=== PATIENT | female | born 1950 | race Caucasian/White ===

== ENCOUNTER → 2020-03-03 10:46 | Outpatient (BNVA) | payer MEDICARE, MEDICAID, SELFPAY | PROVIDERS: Family Provider Nurse Practitioner Family; PCP Nurse Practitioner Family; Visit Provider Nurse Practitioner Family | DX: E11.9 Type 2 diabetes mellitus without complications (principal); E55.9 Vitamin D deficiency, unspecified; L60.0 Ingrowing nail; E11.65 Type 2 diabetes mellitus with hyperglycemia; I10 Essential (primary) hypertension; M54.9 Dorsalgia, unspecified; G89.29 Other chronic pain; G62.9 Polyneuropathy, unspecified; E78.5 Hyperlipidemia, unspecified; K21.9 Gastro-esophageal reflux disease without esophagitis; J30.2 Other seasonal allergic rhinitis | CPT/HCPCS: 80053; 80061; 82044; 82306; 82607; 83036; 83735; 84450; 85025; 87070; 87077; 87186 ==

== ENCOUNTER → 2020-07-06 12:10 | Outpatient (BNVA) | payer MEDICARE, MEDICAID, SELFPAY | PROVIDERS: Family Provider Nurse Practitioner Family; PCP Nurse Practitioner Family; Visit Provider Nurse Practitioner Family | DX: M54.5 Low back pain (principal); G89.29 Other chronic pain; M17.0 Bilateral primary osteoarthritis of knee; E53.8 Deficiency of other specified B group vitamins; Z68.41 Body mass index [BMI] 40.0-44.9, adult; Z71.89 Other specified counseling | CPT/HCPCS: 82607; 82746; 83090; 83921 ==

== ENCOUNTER → 2020-09-01 11:41 | Outpatient (BNVA) | payer MEDICARE, MEDICAID, SELFPAY | PROVIDERS: Family Provider Nurse Practitioner Family; PCP Nurse Practitioner Family; Visit Provider Nurse Practitioner Family | DX: E11.65 Type 2 diabetes mellitus with hyperglycemia (principal); E55.9 Vitamin D deficiency, unspecified | CPT/HCPCS: 80053; 80061; 82306; 83036; 83721; 85025 ==

== ENCOUNTER → 2021-01-27 09:02 | Outpatient (BNVA) | payer MEDICARE, MEDICAID, SELFPAY | PROVIDERS: Family Provider Nurse Practitioner Family; PCP Nurse Practitioner Family; Visit Provider Nurse Practitioner Family | DX: E53.8 Deficiency of other specified B group vitamins (principal); E55.9 Vitamin D deficiency, unspecified; E11.65 Type 2 diabetes mellitus with hyperglycemia; M17.0 Bilateral primary osteoarthritis of knee; J30.2 Other seasonal allergic rhinitis; K21.9 Gastro-esophageal reflux disease without esophagitis; E78.5 Hyperlipidemia, unspecified; I10 Essential (primary) hypertension; M54.5 Low back pain; G89.29 Other chronic pain; K08.89 Other specified disorders of teeth and supporting structures; E11.42 Type 2 diabetes mellitus with diabetic polyneuropathy | CPT/HCPCS: 80053; 80061; 82043; 82306; 82607; 83036; 84443; 85025 ==

== ENCOUNTER → 2021-08-24 11:26 | Outpatient (BNVA) | payer MEDICARE, MEDICAID, SELFPAY | PROVIDERS: Family Provider Nurse Practitioner Family; PCP Nurse Practitioner Family; Visit Provider Nurse Practitioner Family | DX: I10 Essential (primary) hypertension (principal); E11.65 Type 2 diabetes mellitus with hyperglycemia; E55.9 Vitamin D deficiency, unspecified | CPT/HCPCS: 80053; 80061; 82306; 82607; 83036; 83735; 84443; 85025 ==

== ENCOUNTER → 2022-02-24 10:40 | Outpatient (BNVA) | payer MEDICARE, MEDICAID, SELFPAY | PROVIDERS: Family Provider Nurse Practitioner Family; PCP Nurse Practitioner Family; Visit Provider Nurse Practitioner Family | DX: E55.9 Vitamin D deficiency, unspecified (principal); E53.8 Deficiency of other specified B group vitamins; E11.9 Type 2 diabetes mellitus without complications; I10 Essential (primary) hypertension; M17.0 Bilateral primary osteoarthritis of knee; J30.2 Other seasonal allergic rhinitis; K21.9 Gastro-esophageal reflux disease without esophagitis; G89.29 Other chronic pain | CPT/HCPCS: 80053; 80061; 82043; 82306; 82607; 83036; 83735; 84443; 85025 ==

== ENCOUNTER 2022-06-30 20:56 | Inpatient (IN) | payer MEDICARE, MEDICAID, SELFPAY ==
[2022-06-30 21:21] VITALS: BP 157/97; PULSE 80; RESP 20; TEMP 37.9; O2SAT 93; BMI 36.3
--- NOTE | 2022-06-30 21:24 | ECG_ITS ---
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 Measurements Intervals [place] Rate: 80 P: 45 [place]: 195 QRS: -24 QRSD: 89 T: 35 QT: 344 QTc: 398 Interpretive Statements SINUS RHYTHM BORDERLINE LEFT AXIS DEVIATION [QRS AXIS < -20] MODERATE VOLTAGE CRITERIA FOR LVH, CONSIDER NORMAL VARIANT [MEETS CRITERIA IN ONE OF: R(aVL), S(V1), R(V5), R(V5/V6)+S(V1)] NONSPECIFIC T-WAVE ABNORMALITY No previous ECG available for comparison Electronically Signed On 06-30-2022 22:52:21 CDT by Candis Dotson M.D. [id number] f
--- NOTE | 2022-06-30 21:29 | CTR_ITS ---
PROCEDURE INFORMATION: Exam: CT Abdomen And Pelvis Without Contrast Exam date and time: 06/30/2022 9:50 PM Age: 72 years old Clinical indication: Abdominal pain; Additional info: Abd pain, RT flank x 2 days TECHNIQUE: Imaging protocol: Computed tomography of the abdomen and pelvis without contrast. Radiation optimization: All CT scans at this facility use at least one of these dose optimization techniques: automated exposure control; mA and/or kV adjustment per patient size (includes targeted exams where dose is matched to clinical indication); or iterative reconstruction. COMPARISON: MR lumbar spine wo con* [id number] 02/20/2017 1:10 PM RADIATION DOSE METRICS: Total DLP (mGy-cm): 1233.53 FINDINGS: Limitations: Study somewhat limited due to streak artifact created by the patient being scanned with the arms at the sides. Study is somewhat limited by patient respiratory motion. The absence of intravenous contrast lessens the sensitivity of this study for solid organ abnormalities. Diaphragm: There is chronic elevation the right hemidiaphragm. Liver: There is mild enlargement of the liver. Liver measures 21 cm in height Gallbladder and bile ducts: Multiple calcified gallstones are present. There is moderate hydrops of the gallbladder which measures 9 cm in length and 5 cm in diameter. There may be mild gallbladder wall thickening. Pancreas: The pancreas is normal. Spleen: The spleen demonstrates punctate calcifications, consistent with remote granulomatous organism exposure. The spleen is normal. Adrenal glands: The adrenal glands are normal. Kidneys and ureters: The kidneys are normal. There is no evidence of hydronephrosis. There is no evidence of renal or ureteral calcifications. Stomach and bowel: There is no evidence of colitis/diverticulitis. There is no evidence of intestinal obstruction. Appendix: Not identified Intraperitoneal space: There is no evidence of free intraperitoneal fluid. Vasculature: There is no evidence of an abdominal aortic aneurysm. Lymph nodes: There is some calcified hilar and mediastinal lymph nodes in keeping with old granulomatous disease. There is no evidence of lymphadenopathy. Urinary bladder: Unremarkable as visualized. Reproductive: Unremarkable as visualized. Bones/joints: The lumbar spine demonstrates marked degenerative changes at multiple levels. Soft tissues: Unremarkable. CT/CT abdomen pelvis wo con [id number] IMPRESSION: 1. Hepatomegaly 2. Cholelithiasis 3. Moderate hydrops of the gallbladder with possible gallbladder wall thickening. 4. No urinary tract calculi are identified. 5. Extensive degenerative changes in the lumbar spine.
--- NOTE | 2022-06-30 21:29 | XRR_ITS ---
PROCEDURE INFORMATION: Exam: XR Chest Exam date and time: 06/30/2022 9:54 PM Age: 72 years old Clinical indication: Fever TECHNIQUE: Imaging protocol: Radiologic exam of the chest. Views: 1 view. COMPARISON: CT abdomen pelvis con [id number] 06/30/2022 9:50 PM FINDINGS: Limitations: The study is made with less than full inspiration. Lungs: Visualized portions of the lungs are clear. There is no pulmonary venous congestion. Pleural spaces: Unremarkable. No pleural effusion. No pneumothorax. Heart/Mediastinum: Heart is within normal limits of size. Diaphragm: There is chronic elevation the right hemidiaphragm. Bones/joints: Unremarkable. XR/XR chest 1V portable [id number] IMPRESSION: No acute infiltrate.
--- NOTE | 2022-06-30 21:31 | CTR_ITS ---
PROCEDURE INFORMATION: Exam: CT Head Without Contrast Exam date and time: 06/30/2022 9:47 PM Age: 72 years old Clinical indication: Altered mental status/memory loss; Additional info: AMS TECHNIQUE: Imaging protocol: Computed tomography of the head without contrast. Radiation optimization: All CT scans at this facility use at least one of these dose optimization techniques: automated exposure control; mA and/or kV adjustment per patient size (includes targeted exams where dose is matched to clinical indication); or iterative reconstruction. COMPARISON: No relevant prior studies available. RADIATION DOSE METRICS: Total DLP (mGy-cm): 1090.08 FINDINGS: Brain: Mild atrophy and mild white matter chronic microvascular changes are noted. No hemorrhage or evidence of acute infarction. Cerebral ventricles: No ventriculomegaly. Paranasal sinuses: Visualized sinuses are unremarkable. No fluid levels. Mastoid air cells: Visualized mastoid air cells are well aerated. Bones/joints: Unremarkable. No acute fracture. Soft tissues: Unremarkable. CT/CT head wo con* [id number] IMPRESSION: No acute intracranial abnormality.
--- NOTE | 2022-06-30 21:38 | ED_ITS ---
HPI - Weakness General: Chief complaint: Weakness Stated complaint: FEVER/WEAKNESS/CONFUSED Time Seen by Provider: 06/30/22 20:58 Source: patient and EMS Mode of arrival: EMS Limitations: no limitations History of Present Illness: 72-year-old female that states that she has been having a fever today. Family states she been complaining of abdominal pain and left flank pain yesterday daughter states that when she went to work this morning she is normal and she came home and she was confused and had a fever patient's confusion is since improved she is ANO x4 currently with daughter states she is quite confused at the house. She does have a fever here states that she has not felt well today and has had some weakness had some slight shortness of breath denies any vomiting or diarrhea. Associated symptoms: Reports fever(s) and nausea; Denies chest pain, dysuria, easy bruising or headache(s) Review of Systems Const: Reports: fever(s) Eyes: Denies: blurry vision or eye discomfort ENMT: Denies: throat pain or dental pain Card: Denies: chest pain Resp: Reports: dyspnea GI: Reports: abdominal pain and nausea : Denies: dysuria Musc: Denies: neck pain or back pain Skin/Breast: Denies: rash Neuro: Denies: headache(s) Psych: Denies: depression Asa/Lymph: Denies: easy bruising All/Imm: Denies: urticaria PFSH ED PFSH: Medical History (Updated 07/01/22 @ 02:02 by Alma Delia Bartlett MD) Bunion of right foot Chronic back pain Chronic osteoarthritis Dyslipidemia Encounter for counseling for care management of patient with chronic conditions and complex health needs using nurse-based model Essential (primary) hypertension Gastro-esophageal reflux disease without esophagitis Neuropathy Obesity, unspecified Seasonal allergies Type 2 diabetes mellitus without complications Surgical History Hx of knee surgery (~10/2000) left Family History Mother Cancer colon Father Cancer pancreatic Family/Other CAD (coronary artery disease) Social History Smoking and tobacco status: never smoked Second hand smoke exposure: No Alcohol intake: never Lives independently: Yes Household members: significant other Marital status: Life Partner Current occupational status: retired History of recent travel: No Current gender identity: Female Physical Exam Const: COMMON NORMALS: patient oriented x3 HENMT: COMMON NORMALS: normocephalic and atraumatic HEAD & SCALP: normocephalic and atraumatic Eye: COMMON NORMALS: Equal, round and reactive pupils present and EOMs intact bilaterally PUPIL: Yes Equal, round and reactive pupils present Neck/C-Spine: COMMON NORMALS: full ROM and supple Chest: COMMONS NORMALS: normal inspection of the chest and normal palpation of entire chest wall Resp: COMMON NORMALS: normal respiratory effort, No retractions, No use of accessory muscles and clear to auscultation bilaterally AUSCULTATION: clear to auscultation bilaterally Cardio: COMMON NORMALS: regular rate, regular rhythm and No murmurs present (Cardio) RATE: regular rate RHYTHM: regular rhythm GI: COMMON NORMALS: Normal to inspection, nondistended, normoactive bowel sounds present, Soft to palpation, non-tender and no masses PALPATION: Yes Soft to palpation Extremity: COMMON NORMALS: normal to inspection and full ROM Neuro: COMMON NORMALS: patient oriented x3, moves all extremities and no focal motor deficits Psych: COMMON NORMALS: mental status grossly normal, Normal thought process present and cooperative THOUGHT PROCESS: Normal thought process present Skin: COMMON NORMALS: no rashes or lesions noted and no wounds GENERAL SKIN EXAM: no rashes or lesions noted Course Vital Signs: Vital signs: Vital Signs Temperature 100.3 F H 06/30/22 21:21 Pulse Rate 73 06/30/22 23:19 Respiratory Rate 36 H 06/30/22 23:19 Blood Pressure 125/60 06/30/22 23:19 Pulse Oximetry 95 06/30/22 23:19 Oxygen Delivery Me thod 06/30/22 23:19 Oxygen Flow Rate 3 06/30/22 23:19 MDM - Weakness Medical Decision Making Patient presents here with altered mental status likely from a urinary tract infection also causing fever. Patient's improved here did give IV antibiotics patient will be admitted I spoke to hospitalist. Lab Data : 06/30/22 21:39 06/30/22 21:39 Radiology Impressions Abdomen/Pelvis CT 06/30/22 21:29 IMPRESSION: 1. Hepatomegaly 2. Cholelithiasis 3. Moderate hydrops of the gallbladder with possible gallbladder wall thickening. 4. No urinary tract calculi are identified. 5. Extensive degenerative changes in the lumbar spine. Chest X-Ray 06/30/22 21:29 IMPRESSION: No acute infiltrate. Head CT 06/30/22 21:31 IMPRESSION: No acute intracranial abnormality. Laboratory Results WBC 10.5 10^3/uL (4.0-10.0) H 06/30/22 21:39 RBC 5.17 10^6/uL (4.1-5.3) 06/30/22 21:39 Hgb 15.9 g/dL (11.5-15.3) H 06/30/22 21:39 Hct 48.4 % (37.0-47.0) H 06/30/22 21:39 MCV 93.6 fl (81-99) 06/30/22 21:39 MCH 30.8 pg (28.0-34.0) 06/30/22 21:39 MCHC 32.9 g/dL (30.0-36.0) 06/30/22 21:39 RDW 13.4 % (12.1-15.1) 06/30/22 21:39 Plt Count 212 10^3/cmm (130-400) 06/30/22 21:39 MPV 11.2 fL (7.4-10.4) H 06/30/22 21:39 Neut % (Auto) 93.2 % 06/30/22 21:39 Lymph % (Auto) 3.0 % 06/30/22 21:39 Trigg % (Auto) 2.4 % 06/30/22 21:39 Eos % (Auto) 0.7 % 06/30/22 21:39 Baso % (Auto) 0.3 % 06/30/22 21:39 Neut # (Auto) 9.79 10^3/uL (1.8-7.7) H 06/30/22 21:39 Lymph # (Auto) 0.3 10^3/uL (0.8-4.8) L 06/30/22 21:39 Trigg # (Auto) 0.3 10^3/uL (0.2-0.9) 06/30/22 21:39 Eos # (Auto) 0.1 10^3/uL (0.0-0.8) 06/30/22 21:39 Baso # (Auto) 0.0 10^3/uL (0.0-0.1) 06/30/22 21:39 Nucleated RBC % (auto) 0 % 06/30/22 21:39 Nucleated RBCs # 0.0 /100WBC 06/30/22 21:39 PT 13.70 SECONDS (12.1-14.9) 06/30/22 21:39 INR 1.02 (0.8-1.2) 06/30/22 21:39 Sodium 139 mmol/L (136-145) 06/30/22 21:39 Potassium 3.7 mmol/L (3.5-5.1) 06/30/22 21:39 Chloride 105 mmol/L (98-107) 06/30/22 21:39 Carbon Dioxide 22 mmol/L (22-29) 06/30/22 21:39 Anion Gap 15.7 (5-19) 06/30/22 21:39 BUN 21 mg/dL (8-23) 06/30/22 21:39 Creatinine 0.9 mg/dL (0.5-0.9) 06/30/22 21:39 GFR Calculation Not Reportable 06/30/22 21:39 Glucose 110 mg/dL (65-115) 06/30/22 21:39 Calculated Osmolality 292 mOsm/kg (285-295) 06/30/22 21:39 Lactate 3.1 mmol/L (0.5-2.2) H 06/30/22 21:39 Calcium 8.5 mg/dL (8.5-10.5) 06/30/22 21:39 Total Bilirubin 2.0 mg/dL (0.15-1.2) H 06/30/22 21:39 AST 428 U/L (0-32) H 06/30/22 21:39 ALT 193 U/L (0-33) H 06/30/22 21:39 Alkaline Phosphatase 58 U/L (35-105) 06/30/22 21:39 Troponin T Baseline 19 ng/L (0-10) H 06/30/22 21:39 NT-Pro-B Natriuret Pep 1180 pg/mL (0-125) H 06/30/22 21:39 Total Protein 6.0 g/dL (6.6-8.7) L 06/30/22 21:39 Albumin 3.6 g/dL (3.5-5.2) 06/30/22 21:39 Globulin 2.4 g/dL (1.3-4.6) 06/30/22 21:39 Lipase 30 U/L (13-60) 06/30/22 21:39 Urine Color Yellow (Yellow) 06/30/22 23:06 Urine Appearance Clear (CLEAR) 06/30/22 23:06 Urine pH 7 (5-7) 06/30/22 23:06 Ur Specific [place] 1.010 (1.005-1.030) 06/30/22 23:06 Urine Protein Neg (Negative) 06/30/22 23:06 Urine Glucose (UA) 1+ (Normal) H 06/30/22 23:06 Urine Ketones Negative (Negative) 06/30/22 23:06 Urine Blood Neg (Negative) 06/30/22 23:06 Urine Nitrate Positive (Negative) H 06/30/22 23:06 Urine Bilirubin 1+ (Negative) H 06/30/22 23:06 Urine Urobilinogen 1 mg/dL (Negative) H 06/30/22 23:06 Ur Leukocyte Esterase Negative (Negative) 06/30/22 23:06 Urine RBC 0-4 /hpf (0-2) H 06/30/22 23:06 Urine WBC 0-4 /hpf (0-5) H 06/30/22 23:06 Ur Squamous Epith Cells 0-4 /hpf (0-5) H 06/30/22 23:06 Amorphous Sediment Not Reportable 06/30/22 23:06 Urine Bacteria 4+ /hpf (NONE) H 06/30/22 23:06 SARS-CoV-2 Ag (Rapid) Negative (Negative) 06/30/22 22:20 EKG Data EKG 1: I personally reviewed and interpreted this EKG as follows: EKG interpretation date: 06/30/22 EKG interpretation time: 21:24 Interpretation: nsr hr [address] or t wave abnormalities qrs 89 qtc 380 Discharge Plan Discharge Patient Disposition: Admitted As Inpatient Clinical Impression: Acute cystitis Condition: Stable Prescriptions: No Action oxycodone 10 mg tablet 10 mg PO Q4H PRN (Reason: Pain Clinic) oxycodone 30 mg tablet 30 mg PO Q4H PRN (Reason: Pain Clinic) multivitamin [Daily Multi-Vitamin] Tablet 1 tab PO QAM lisinopril 40 mg tablet See Rx Instructions .ROUTE .COMPLEX Qty: 60 5RF Dose Instruction: TAKE ONE TABLET BY MOUTH DAILY Rx Instructions: TAKE ONE TABLET BY MOUTH twice daily dose increase amlodipine 10 mg tablet See Rx Instructions .ROUTE .COMPLEX Qty: 30 5RF Dose Instruction: TAKE ONE TABLET BY MOUTH DAILY Rx Instructions: TAKE ONE TABLET BY MOUTH DAILY diclofenac sodium 1 % gel 4 g TOPICAL QID PRN (Reason: pain) Qty: 300 5RF dapagliflozin 10 mg tablet See Rx Instructions .ROUTE .COMPLEX Qty: 30 5RF Dose Instruction: TAKE ONE TABLET BY MOUTH DAILY Rx Instructions: TAKE ONE TABLET BY MOUTH DAILY celecoxib 200 mg capsule See Rx Instructions .ROUTE .COMPLEX Qty: 60 5RF Dose Instruction: TAKE ONE CAPSULE BY MOUTH TWICE DAILY NEEDED FOR PAIN Rx Instructions: TAKE ONE CAPSULE BY MOUTH TWICE DAILY NEEDED FOR PAIN bumetanide 1 mg tablet See Rx Instructions .ROUTE .COMPLEX Qty: 30 5RF Dose Instruction: TAKE ONE TABLET BY MOUTH DAILY Rx Instructions: TAKE ONE TABLET BY MOUTH DAILY fenofibrate 160 mg tablet See Rx Instructions .ROUTE .COMPLEX Qty: 30 5RF Dose Instruction: TAKE ONE TABLET BY MOUTH DAILY Rx Instructions: TAKE ONE TABLET BY MOUTH DAILY fluticasone propionate 50 mcg/actuation spray,suspension See Rx Instructions .ROUTE .COMPLEX Qty: 16 5RF Dose Instruction: USE 1 SPRAY IN EACH NOSTRIL TWICE DAILY Rx Instructions: USE 1 SPRAY IN EACH NOSTRIL TWICE DAILY gabapentin 800 mg tablet See Rx Instructions .ROUTE .COMPLEX Qty: 90 5RF Dose Instruction: TAKE ONE TABLET BY MOUTH THREE TIMES DAILY Rx Instructions: TAKE ONE TABLET BY MOUTH THREE TIMES DAILY glipizide 10 mg tablet extended release 24hr See Rx Instructions .ROUTE .COMPLEX Qty: 30 5RF Dose Instruction: TAKE ONE TABLET BY MOUTH DAILY Rx Instructions: TAKE ONE TABLET BY MOUTH DAILY metformin 1,000 mg tablet See Rx Instructions .ROUTE .COMPLEX Qty: 60 5RF Dose Instruction: TAKE ONE TABLET BY MOUTH TWICE DAILY Rx Instructions: TAKE ONE TABLET BY MOUTH TWICE DAILY metoprolol succinate 200 mg tablet extended release 24 hr See Rx Instructions .ROUTE .COMPLEX Qty: 30 5RF Dose Instruction: TAKE ONE TABLET BY MOUTH DAILY Rx Instructions: TAKE ONE TABLET BY MOUTH DAILY simvastatin 40 mg tablet See Rx Instructions .ROUTE .COMPLEX Qty: 30 5RF Dose Instruction: TAKE ONE TABLET BY MOUTH ONCE DAILY Rx Instructions: TAKE ONE TABLET BY MOUTH ONCE DAILY famotidine 20 mg tablet 20 mg PO BID Qty: 60 5RF Fish Oil 340-1,000 mg capsule See Rx Instructions .ROUTE .COMPLEX Qty: 30 0RF Dose Instruction: TAKE ONE CAPSULE BY MOUTH DAILY Rx Instructions: TAKE ONE CAPSULE BY MOUTH DAILY magnesium oxide 400 mg (241.3 mg magnesium) tablet See Rx Instructions .ROUTE .COMPLEX Qty: 30 1RF Dose Instruction: TAKE ONE TABLET BY MOUTH DAILY Rx Instructions: TAKE ONE TABLET BY MOUTH DAILY cyanocobalamin (vitamin B-12) 1,000 mcg/mL solution See Rx Instructions .ROUTE .COMPLEX Qty: 1 5RF Dose Instruction: INJECT CONTENTS OF 1 VIAL (ONE ML) INTRAMUSCULARLY WEEKLY FOR 4 WEEKS, THEN ONCE MONTHLY FOR 5 MONTHS Rx Instructions: INJECT CONTENTS OF 1 VIAL (ONE ML) INTRAMUSCULARLY ONCE MONTHLY FOR 5 MONTHS ergocalciferol (vitamin D2) 1,250 mcg (50,000 unit) capsule 50,000 unit PO .WEEKLY Qty: 4 5RF (DME) BD Luer-Beth Syringe 3 mL 25 gauge x 1 syringe See Rx Instructions .ROUTE .COMPLEX Qty: 1 5RF Dose Instruction: USE ONE SYRINGE MONTHLY TO INJECT B12 Rx Instructions: USE ONE SYRINGE MONTHLY TO INJECT B12 ondansetron HCl 4 mg tablet See Rx Instructions .ROUTE .COMPLEX Qty: 30 1RF Dose Instruction: TAKE ONE TABLET BY MOUTH EVERY 8 HOURS NEEDED FOR NAUSEA AND VOMITING Rx Instructions: TAKE ONE TABLET BY MOUTH EVERY 8 HOURS NEEDED FOR NAUSEA AND VOMITING Referrals: Sheri Black FNP [Primary Care Provider] - Coding Level of Care Code ED Fingerprint Technician for Chg Fwd Exam Comprehensive
[2022-06-30 22:03] LABS: Basophils % 0.3 %; Eosinophils # 0.1 10^3/uL (0.0-0.8); Eosinophils % 0.7 %; Hematocrit 48.4 % (37.0-47.0); Hemoglobin 15.9 g/dL (11.5-15.3); Lymphocytes # 0.3 10^3/uL (0.8-4.8); Mean Corpuscular HGB Conc 32.9 g/dL (30.0-36.0); Mean Corpuscular Hemoglobin 30.8 pg (28.0-34.0); Mean Corpuscular Volume 93.6 fl (81-99); Mean Platelet Volume 11.2 fL (7.4-10.4); Monocytes # 0.3 10^3/uL (0.2-0.9); Monocytes % 2.4 %; Neutrophils # 9.79 10^3/uL (1.8-7.7); Neutrophils % 93.2 %; Nucleated Red Blood Cells % 0 %; Platelet Count 212 10^3/cmm (130-400); Red Blood Count 5.17 10^6/uL (4.1-5.3); Red Cell Distribution Width 13.4 % (12.1-15.1); White Blood Count 10.5 10^3/uL (4.0-10.0)
[2022-06-30 22:05] LABS: INR 1.02 (0.8-1.2)
[2022-06-30 22:12] LABS: Lactate (Lactic Acid level) 3.1 mmol/L (0.5-2.2)
[2022-06-30 22:15] LABS: Troponin(5th) Baseline 19 ng/L (0-10)
[2022-06-30 22:22] VITALS: BP 146/72; PULSE 82; RESP 30; O2SAT 96
[2022-06-30 22:24] LABS: Alanine Aminotransferase 193 U/L (0-33); Albumin Level 3.6 g/dL (3.5-5.2); Alkaline Phosphatase 58 U/L (35-105); Aspartate Amino Transferase 428 U/L (0-32); Blood Urea Nitrogen 21 mg/dL (8-23); Calcium 8.5 mg/dL (8.5-10.5); Carbon Dioxide 22 mmol/L (22-29); Chloride 105 mmol/L (98-107); Globulin 2.4 g/dL (1.3-4.6); Glucose 110 mg/dL (65-115); Lipase 30 U/L (13-60); NT Pro B Type Natriuretic Pept 1180 pg/mL (0-125); Osmolality Calculated 292 mOsm/kg (285-295); Sodium 139 mmol/L (136-145)
[2022-06-30 22:27] LABS: Anion Gap 15.7 (5-19); Potassium 3.7 mmol/L (3.5-5.1)
[2022-06-30] MEDS: sodium chloride 0.9% 1,000 ML 999 ML IV (22:29)
[2022-06-30] MEDS: acetaminophen 325 mg Tablet 650 MG PO (22:29)
[2022-06-30 22:52] LABS: SARS Covid-2 Antigen Negative (Negative)
[2022-06-30 23:19] VITALS: BP 125/60; PULSE 73; RESP 36; O2SAT 95
[2022-06-30 23:39] LABS: Blood Urine Neg (Negative); Glucose Urine UA 1+ (Normal); Ketones Urine Negative (Negative); Protein Urine Neg (Negative); Urine Appearance Clear (CLEAR); Urine Color Yellow (Yellow); pH Urine 7 (5-7)
[2022-06-30 23:40] LABS: Add Urine Culture? Yes; Add Urine Microscopic? YES; Bacteria Urine 4+ /hpf; Bilirubin Urine 1+ (Negative); Leukocyte Esterase Urine Negative (Negative); Nitrate Urine Positive (Negative); RBC Urine 0-4 /hpf (0-2); Squamous Epithelial Cell Urine 0-4 /hpf (0-5); Urobilinogen Urine 1 mg/dL (Negative); WBC Urine 0-4 /hpf (0-5)
--- NOTE | 2022-06-30 23:46 | ECG_ITS ---
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 Measurements Intervals [place] Rate: 76 P: 34 MT: 174 QRS: -16 QRSD: 86 T: 45 QT: 361 QTc: 408 Interpretive Statements SINUS RHYTHM MODERATE VOLTAGE CRITERIA FOR LVH, CONSIDER NORMAL VARIANT [MEETS CRITERIA IN ONE OF: R(aVL), S(V1), R(V5), R(V5/V6)+S(V1)] NONSPECIFIC T-WAVE ABNORMALITY Compared to ECG 06/30/2022 21:24:51 No significant changes Electronically Signed On 07-01-2022 17:52:16 CDT by Samir Hendrickson M.D. [id number]
[2022-06-30] MEDS: piperacillin-tazobactam 3.375 GM in sodium chloride 0.9% (plus) 50 ML IV (23:49)
[2022-07-01] VITALS (13 sets, daily range): BP systolic 89–169; BP diastolic 37–80; PULSE 55–123; RESP 14–26; TEMP 36.5–37.7; O2SAT 3–98; BMI 35.2
[2022-07-01 02:04] LABS: Troponin 5 2HR 19.83 ng/L (0-10)
[2022-07-01 02:06] LABS: Troponin 5 2HR Delta 0.83 ABS# (0-10)
--- NOTE | 2022-07-01 02:31 | PM.HP ---
Providers/Chief Complaint Admitting Physician: Junior Jordan MD Primary Care Provider: DOMINICK Vizcarra Chief Complaint: FEVER/WEAKNESS/CONFUSED History of Present Illness Elena Salinas is a 72 year old female with a past medical history of type 2 diabetes mellitus, neuropathy, dyslipidemia, chronic back pain on chronic opiate medications, who presents [facility] due to increased confusion, right flank pain, right upper quadrant pain. Patient tells me that she is here in the hospital because her daughter made her come to the hospital, she tells me that according to her family she has been more confused, she has been having fevers, no nausea, no vomiting reported. She is also been having right flank pain, radiating around her side to the right upper quadrant. She still has her gallbladder, she does report a history of UTIs in the past, none recently has not been on antibiotics recently, no history of pyelonephritis, no history of sepsis. Denies any dysuria, no hematuria, no history of nephrolithiasis. Review of Systems Const: Reports: fever(s) Card: Denies: chest pain Resp: Denies: dyspnea GI: Reports: abdominal pain; Denies: nausea or vomiting : Reports: flank pain Neuro: Denies: headache(s) Medications/Allergies Home Medications Medication Instructions Recorded Confirmed Last Taken Type multivitamin (Daily Multi-Vitamin) 1 tab PO QAM 11/22/19 02/24/22 Unknown History oxycodone 10 mg tablet 10 mg PO Q4H PRN [facility] 11/22/19 02/24/22 Unknown History oxycodone 30 mg tablet 30 mg PO Q4H PRN Pain Clinic 11/22/19 02/24/22 Unknown History omega-3 fatty acids-fish oil 340 See Rx Instructions .Route 06/25/21 02/24/22 Unknown Rx mg-1,000 mg capsule (Fish Oil) .COMPLEX #30 caps magnesium oxide 400 mg (241.3 mg See Rx Instructions .Route 09/22/21 02/24/22 Unknown Rx magnesium) tablet .COMPLEX #30 tabs amlodipine 10 mg tablet See Rx Instructions .Route 02/24/22 02/24/22 Unknown Rx .COMPLEX #30 tabs bumetanide 1 mg tablet See Rx Instructions .Route 02/24/22 02/24/22 Unknown Rx .COMPLEX #30 tabs celecoxib 200 mg capsule See Rx Instructions .Route 02/24/22 02/24/22 Unknown Rx .COMPLEX #60 caps cyanocobalamin (vitamin B-12) See Rx Instructions .Route 02/24/22 02/24/22 Unknown Rx 1,000 mcg/mL injection solution .COMPLEX #1 mL dapagliflozin 10 mg tablet See Rx Instructions .Route 02/24/22 02/24/22 Unknown Rx .COMPLEX #30 tabs diclofenac sodium 1 % topical gel 4 g topical QID PRN pain #300 grams 02/24/22 02/24/22 Unknown Rx ergocalciferol (vitamin D2) 1,250 50,000 unit PO .WEEKLY #4 caps 02/24/22 02/24/22 Unknown Rx mcg (50,000 unit) capsule famotidine 20 mg tablet 20 mg PO BID #60 tabs 02/24/22 02/24/22 Unknown Rx fenofibrate 160 mg tablet See Rx Instructions .Route 02/24/22 02/24/22 Unknown Rx .COMPLEX #30 tabs fluticasone propionate 50 See Rx Instructions .Route 02/24/22 02/24/22 Unknown Rx mcg/actuation nasal .COMPLEX #16 grams spray,suspension gabapentin 800 mg tablet See Rx Instructions .Route 02/24/22 02/24/22 Unknown Rx .COMPLEX #90 tabs glipizide 10 mg tablet, extended See Rx Instructions .Route 02/24/22 02/24/22 Unknown Rx release 24 hr .COMPLEX #30 tabs lisinopril 40 mg tablet See Rx Instructions .Route 02/24/22 02/24/22 Unknown Rx .COMPLEX #60 tabs metformin 1,000 mg tablet See Rx Instructions .Route 02/24/22 02/24/22 Unknown Rx .COMPLEX #60 tabs metoprolol succinate 200 mg See Rx Instructions .Route 02/24/22 02/24/22 Unknown Rx tablet,extended release 24 hr .COMPLEX #30 tabs simvastatin 40 mg tablet See Rx Instructions .Route 02/24/22 02/24/22 Unknown Rx .COMPLEX #30 tabs syringe with needle 3 mL 25 gauge #1 ea 02/24/22 02/24/22 Unknown Rx x 1 (BD Luer-Beth Syringe) ondansetron HCl 4 mg tablet See Rx Instructions .Route 05/23/22 Unknown Rx .COMPLEX #30 tabs Allergies Allergy/AdvReac Type Severity Reaction Status Date / Time No Known Allergies Allergy Verified 02/24/22 11:17 PFSH Acute PFSH: Medical History (Updated 07/01/22 @ 02:33 by Junior Jordan MD) Bunion of right foot Chronic back pain Chronic osteoarthritis Dyslipidemia Encounter for counseling for care management of patient with chronic conditions and complex health needs using nurse-based model Essential (primary) hypertension Gastro-esophageal reflux disease without esophagitis Neuropathy Obesity, unspecified Seasonal allergies Type 2 diabetes mellitus without complications Surgical History Hx of knee surgery (~10/2000) left Family History Mother Cancer colon Father Cancer pancreatic Family/Other CAD (coronary artery disease) Social History Smoking and tobacco status: never smoked Second hand smoke exposure: No Alcohol intake: never Lives independently: Yes Household members: significant other Marital status: Life Partner Current occupational status: retired History of recent travel: No Current gender identity: Female Vitals/I&O/Wt Last Vital Signs Temp 100.3 F H 06/30/22 21:21 Pulse 73 06/30/22 23:19 Resp 36 H 06/30/22 23:19 BP 125/60 06/30/22 23:19 Pulse Ox 95 06/30/22 23:19 O2 Del Method 06/30/22 23:19 O2 Flow Rate 3 06/30/22 23:19 Weight last 48 hrs Weight 90.265 kg Physical Exam Const: COMMON NORMALS: no acute distress and patient oriented x3 HENMT: COMMON NORMALS: normocephalic HEAD & SCALP: normocephalic Eye: COMMON NORMALS: Equal, round and reactive pupils present and EOMs intact bilaterally Neck/C-Spine: COMMON NORMALS: no JVD Resp: COMMON NORMALS: normal respiratory effort, No retractions, No use of accessory muscles and clear to auscultation bilaterally AUSCULTATION: clear to auscultation bilaterally Cardio: COMMON NORMALS: no JVD, regular rate, regular rhythm, S1 normal heart sound present and S2 normal heart sound present RATE: regular rate RHYTHM: regular rhythm HEART SOUNDS: S1 normal heart sound present and S2 normal heart sound present GI: COMMON NORMALS: Normal to inspection, nondistended, normoactive bowel sounds present, Soft to palpation, non-tender, No hepatosplenomegaly present, no masses and no bruits PALPATION: Yes Soft to palpation and Yes No hepatosplenomegaly present : OTHER: Right CVA tenderness Extremity: COMMON NORMALS: capillary refill normal, no clubbing, cyanosis or edema, no calf tenderness and no pedal edema Neuro: COMMON NORMALS: patient oriented x3 Psych: COMMON NORMALS: mental status grossly normal Data : 06/30/22 21:39 06/30/22 21:39 Micro: Microbiology 06/30/22 21:39 Blood Culture - Preliminary Blood SPECIMEN COLLECTED 06/30/22 21:35 Blood Culture - Preliminary Blood SPECIMEN COLLECTED A&P Assessment and plan (1) Acute encephalopathy: Status: Acute (2) Acute cystitis: Status: Acute (3) Cholelithiasis: Status: Acute Plan Acute encephalopathy -Likely secondary to UTI, continue Zosyn, follow urine cultures, blood cultures -Given her right CVA tenderness, also component of right pyelonephritis -She also has stated that she her pain radiates to the right upper quadrant, but it really did not have any right upper quadrant tenderness, CT scan showed cholelithiasis, hydrops moderate of the gallbladder with possible gallbladder wall thickening, lactic acid 3.1, total bili 2.0, AST 48, ALT 193, alk phos is 58, lipase is 30 -CT scan did not make any mention of intra or extrahepatic biliary dilatation -Possibly acute cholecystitis is also playing a role, currently on Zosyn, right upper quadrant ultrasound pending -We will need to monitor her lactic acids, every 6 hours, check monitor her bili, her LFTs if they continue to elevate then we might have to consider MRCP for evaluation of acute ascending cholangitis -Full code -Lovenox for DVT prophylaxis Type II days mellitus, low-dose sliding scale Chronic pain, continue home oxycodone Attestations Medical Necessity Statement*: TransientPatient requires hospitalization, inpatient, greater than 2 midnights, for acute encephalopathy, acute cystitis, cholelithiasis-itis Coding Level of Care Code Acute Healthcare Management for [facility] Fw Diagnoses Acute encephalopathy G93.40 Acute cystitis N30.00 Cholelithiasis K80.20
[2022-07-01 03:27] LABS: Troponin 5 6HR 20.06 ng/L (0-10)
[2022-07-01 03:28] LABS: Lactate (Lactic Acid level) 3.1 mmol/L (0.5-2.2)
[2022-07-01 03:32] LABS: Troponin 5 6HR Delta 1.06 ng/L (0-12)
--- NOTE | 2022-07-01 03:38 | ECG_ITS ---
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 Measurements Intervals Mills Rate: 62 P: 36 NM: 198 QRS: -8 QRSD: 89 T: 37 QT: 436 QTc: 444 Interpretive Statements SINUS RHYTHM Compared to ECG 06/30/2022 23:46:25 T-wave abnormality no longer present Electronically Signed On 07-01-2022 17:52:05 CDT by Samir Hendrickson M.D. [email or web address]
[2022-07-01 07:07] LABS: Alanine Aminotransferase 233 U/L (0-33); Albumin Level 3.4 g/dL (3.5-5.2); Alkaline Phosphatase 39 U/L (35-105); Anion Gap 15.1 (5-19); Aspartate Amino Transferase 343 U/L (0-32); Blood Urea Nitrogen 26 mg/dL (8-23); Calcium 8.6 mg/dL (8.5-10.5); Carbon Dioxide 24 mmol/L (22-29); Chloride 103 mmol/L (98-107); Globulin 2.3 g/dL (1.3-4.6); Glucose 153 mg/dL (65-115); Osmolality Calculated 294 mOsm/kg (285-295); Potassium 4.1 mmol/L (3.5-5.1); Sodium 138 mmol/L (136-145); Total Bilirubin 2.9 mg/dL (0.15-1.2); Total Protein 5.7 g/dL (6.6-8.7)
[2022-07-01 07:08] LABS: Lactate (Lactic Acid level) 2.2 mmol/L (0.5-2.2)
--- NOTE | 2022-07-01 07:27 | MR_ITS ---
WS: [id number] MRI/MRCP OF THE ABDOMEN WITHOUT GADOLINIUM ENHANCEMENT TECHNIQUE: Thin and thick slab MRCP, Axial T2, Coronal MRCP, Axial Dual Echo, and Axial 2-D Fiesta imaging was obtained. Coronal 2-D Fiesta imaging. CLINICAL INFORMATION: fever pain jaundice COMPARISON: CT June 30, 2022 and ultrasound July 01, 2022 FINDINGS: Hepatomegaly with diffuse fatty infiltration of the liver. Normal spleen. Normal GE junction. Adrenal glands are normal. No hydronephrosis in either kidney. Fatty atrophy of the pancreas. No pancreatic lesions. Fluid distended hydropic gallbladder similar to the recent studies. No gallbladder wall thickening or pericholecystic fluid. No cholelithiasis. No intrahepatic biliary ductal dilatation. Normal caliber abdominal aorta. Normal portal vein and splenic vein. Normal common bile duct. No common bile duct di latation. No evidence of choledocholithiasis. Pancreatic head appears normal. Normal pancreatic duct. MR/MR MRCP [id number] Impression: Some images are motion artifact. 1. Hepatomegaly diffuse infiltration the liver. No intrahepatic biliary duct d ilatation. 2. Fluid-filled hydropic distended gallbladder similar to the recent studies. No visualized cholelithiasis. 3. Normal common bile duct. No evidence of choledocholithiasis. 4. Pancreas appears normal considering motion artifact. No evidence of pancrea tic head lesion. No pancreatic ductal dilatation. 5. No other remarkable findings.
[2022-07-01 09:02] LABS: Procalcitonin 30.41 ng/mL (0-0.5); Thyroid Stimulating Hormone 0.87 uIU/mL (0.27-4.20)
[2022-07-01 09:13] LABS: C Reactive Protein 106.3 mg/L (0.0-4.9); Gamma Glutamyl Transferase 184 U/L (5-36); Lipase 17 U/L (13-60)
[2022-07-01 09:19] LABS: Total Bilirubin 2.9 mg/dL (0.15-1.2)
[2022-07-01 09:47] LABS: Glucose Point of Care 168 mg/dL (70-110)
--- NOTE | 2022-07-01 10:55 | PC.CHAP ---
Pastoral Care Encounter/Spiritual Assessment Type of Contact [] Declined tarring machine operator visit [] Patient/Family/Request visit [] Outpatient visit [] Follow-up visit [] Physician referral [] Code/Alert [x] Routine visit [] Staff referral [] Actively dying [] Patient sleeping [] Family support [] [] Out of room [] Palliative care [] [x] Receiving care in room [] Pre-surgical visit [] Trauma [] Long length of stay [] ICU visit [] Other: Relational/Emotional Strength [] Patient feels connected with others/family/visitors/staff [] Distress [] Loneliness/isolation [] Abandonment Spirituality of Patient [] Person of Laila [] Attends Church of their Laila [] Believes in Prayer [] Reads Bible or Hoahaoism materials [] There are Spiritual issues to be addressed Wet Inspector Optical Glass Interventions [] Prayer [] Active listening [] Non-anxious presence [] Spiritual/emotional support [] Crisis/trauma care [] Spiritual counseling [] Bereavement support [] Provided bereavement packet [] Provided Bible/devotional materials [] Provided toy/stuffed animal, coloring book to patient or family member [] Provided Communion [] Anointing/[place] [] Salvation [] Completed spiritual assessment [] Other: Impact on Illness or Injury [] Angry [] Fearful [] Anxious [] Often cries [] Exhaustion [] Unable to work [] Unable to attend anglican [] Unable to walk/stand [] Unable to read [] Unable to drive [] Unable to eat/drink [] Unable to sleep [] Unable to be with family [] Patient intubated [] Other: Summary Time spent with patient
[2022-07-01 11:38] LABS: Glucose Point of Care 134 mg/dL (70-110)
[2022-07-01] MEDS: pantoprazole 40 mg SDV IVP (11:39)
[2022-07-01] MEDS: enoxaparin 40 mg/0.4 mL Syringe SUBCUT (11:39)
[2022-07-01] MEDS: piperacillin-tazobactam 3.375 GM in sodium chloride 0.9% (plus) 50 ML IV ×2 (11:40→21:45)
[2022-07-01] MEDS: amlodipine 10 mg Tablet PO (11:40)
[2022-07-01] MEDS: bumetanide 1 mg Tablet PO (11:40)
[2022-07-01] MEDS: oxyCODONE 5 mg IR Tab/Cap 10 MG PO ×2 (11:53→21:44)
--- NOTE | 2022-07-01 12:51 | PM.MISC ---
Miscellaneous Note Note: I have requested MRCP to rule out ascending cholangitis She meets the triad of jaundice, abdominal pain and fever MRCP did not show choledocholithiasis Hepatomegaly diffuse infiltration I requested FELIBERTO Patient is awake and alert Granddaughter at the bedside stating that she is back to her baseline Patient is icteric No asterixis Abdomen tender to palpate right upper quadrant Bowel sound present Dorsum to no edema Patient is awake alert Nonfocal neuro exam Currently on 3 L nasal cannula Plan Wean off oxygen to room air Rule out ascending cholangitis Continue antibiotics Work-up for hepatic insufficiency MRCP did not show cholelithiasis, ultrasound of gallbladder showed fatty infiltration of liver and gallbladder hydrops She will need outpatient general surgery consult At this point I am treating her UTI with ceftriaxone Because of high bilirubin and abnormal transaminases is unknown for now patient is diabetic last hemoglobin A1c around 7 as per the patient Heart rate bilirubin is higher than indirect, which makes him wonder if there was obstruction with stone which resolved patient is not alcoholic her AST is higher than ALT with positive GGT Check drug screen, alcohol level hepatitis panel No recent traveling or camping
--- NOTE | 2022-07-01 12:56 | USCV_ITS ---
Elena Salinas Age: 72 Gender: F : 1950 Exam Date: 07/01/2022 16:38 Ordering Phys: Belinda Huertas MD Technologist: ADALBERTO [place]am Location[place] [facility] [place] Indication: Sob, confusion BP: 160 / 77 HR: 66 Rhythm: Sinus Technical Quality: adequate MEASUREMENTS (Male / Female) Normal Values 2D ECHO LV Diastolic Diameter PLAX 4.4 cm 4.2 - 5.9 / 3.9 - 5.3 cm LV Systolic Diameter PLAX 2.5 cm IVS Diastolic Thickness 1.5 cm 0.6 - 1.0 / 0.6 - 0.9 cm IVS Systolic Thickness 1.9 cm LVPW Diastolic Thickness 1.5 cm 0.6 - 1.0 / 0.6 - 0.9 cm LVPW Systolic Thickness 2.2 cm LVOT Diameter 2.0 cm LV Ejection Fraction 2D Teich 75.4 % LV Ejection Fraction MOD 2C 64.3 % LV Ejection Fraction 2C AL 64.2 % LA Diameter 5.3 cm RA Width 4.3 cm RA Height 3.9 cm Aorta at Sinotubular Diameter 2.6 cm M-MODE MV E Point Septal Separation 0.8 cm DOPPLER AV Peak Velocity 134.0 cm/s LVOT Peak Velocity 125.0 cm/s AV Area Cont Eq vti 2.9 cm squared AV Area Cont Eq pk 2.9 cm squared MV Peak Velocity 113.0 cm/s MV Area PHT 4.1 cm squared Mitral E to A Ratio 1.2 MV E' Velocity 56.5 cm/s Mitral E to MV E' Ratio 16.4 Mitral E to LV E' Lateral Ratio 17.5 Mitral E to LV E' Septal Ratio 15.5 TR Peak Velocity 292.3 cm/s TR Peak Gradient 34.2 mmHg Right Atrial Pressure 8.0 mmHg Pulmonary Artery Systolic Pressu 42.2 mmHg PV Peak Velocity 66.0 cm/s FINDINGS Left Ventricle Normal left ventricular size, systolic function and moderately increased wall thickness, with no regional wall motion abnormalities. Left ventricular ejection fraction is estimated at 60 %. Grade II diastolic dysfunction, moderately elevated filling pressures. Right Ventricle Normal right ventricular size and systolic function. Right ventricular systolic pressure 47 mmHg. Right Atrium Normal right atrial size. Left Atrium Mildly increased left atrial size. Mitral Valve Structurally normal mitral valve. No mitral valve stenosis. Trace mitral valve regurgitation. Aortic Valve Structurally normal trileaflet aortic valve. No aortic valve stenosis. No aortic valve regurgitation. Tricuspid Valve Structurally normal tricuspid valve. Trace tricuspid valve regurgitation. Pulmonic Valve Pulmonic valve not well visualized. Pericardium No pericardial effusion. Aorta Normal size aortic root and proximal ascending aorta. IVC Inferior vena cava not visualized. CONCLUSIONS 1. Normal left ventricular size, systolic function and moderately increased wall thickness, with no regional wall motion abnormalities. Left ventricular ejection fraction is estimated at 60 %. Grade II diastolic dysfunction, moderately elevated filling pressures. 2. Mild pulmonary hypertension with pulmonary artery pressure estimated at 47 mm Hg. 3. Mildly increased left atrial size. 4. No significant valvular abnormality. 5. No prior similar studies to compare. Jane Prather MD (Electronically Signed) Final Date: 02 July 2022 08:55 S
[2022-07-01 14:14] LABS: Tumor Marker Alpha Fetoprotein 0.8 ng/mL (0-8.3)
[2022-07-01 14:22] LABS: Estmated Average Glucose 146; Hemoglobin A1C 6.7 % (4.0-6.0)
[2022-07-01] MEDS: gabapentin 400 mg Capsule PO ×2 (14:23→21:45)
[2022-07-01 14:26] LABS: Alanine Aminotransferase 247 U/L (0-33); Albumin Level 3.5 g/dL (3.5-5.2); Alkaline Phosphatase 48 U/L (35-105); Aspartate Amino Transferase 308 U/L (0-32); Blood Urea Nitrogen 27 mg/dL (8-23); Calcium 8.5 mg/dL (8.5-10.5); Carbon Dioxide 20 mmol/L (22-29); Chloride 103 mmol/L (98-107); Globulin 2.5 g/dL (1.3-4.6); Glucose 133 mg/dL (65-115); Osmolality Calculated 293 mOsm/kg (285-295); Sodium 138 mmol/L (136-145); Total Bilirubin 3.2 mg/dL (0.15-1.2)
[2022-07-01 14:41] LABS: Lactate (Lactic Acid level) 1.8 mmol/L (0.5-2.2)
[2022-07-01 15:08] LABS: Hepatitis A Antibody IgM Non-Reactive (Nonreactive); Hepatitis B Core AB, Total Non-Reactive (Nonreactive); Hepatitis B Surface AB < 3.5 (11.5-1000); Hepatitis B Surface Antigen Non-Reactive (Nonreactive); Hepatitis C Virus Antibody Non-Reactive (Nonreactive)
[2022-07-01 17:41] LABS: Glucose Point of Care 169 mg/dL (70-110)
[2022-07-01] MEDS: insulin lispro 100 unit/1 mL SUBCUT (18:00)
[2022-07-01] MEDS: vancomycin 750 MG in sodium chloride 0.9% 250 ML 250 MG IV (20:04)
[2022-07-01 21:12] LABS: Glucose Point of Care 137 mg/dL (70-110)
--- NOTE | 2022-07-01 23:15 | USR_ITS ---
PROCEDURE INFORMATION: Exam: US Abdomen; Limited Exam date and time: 07/01/2022 1:27 AM Age: 72 years old Clinical indication: Abdominal pain; Patient HX: starts in my back then radiates down my right flank, then goes to my left flank, intermittently x 1 week. No n+v. ; Additional info: Ruq pain TECHNIQUE: Imaging protocol: Real time ultrasound of the abdomen with image documentation. Limited exam focused on the region of clinical interest. COMPARISON: CT abdomen pelvis wo con [id number] 06/30/2022 9:50 PM FINDINGS: Liver: There is hyperechoic hepatic parenchyma compatible with fatty infiltration. Gallbladder: Gallbladder is patulous measuring up to 9 cm in length without evidence of gallbladder wall thickening or gallstones. US/US gall bladder [id number] IMPRESSION: 1. Gallbladder hydrops 2. Fatty infiltration of the liver
[2022-07-02] VITALS (11 sets, daily range): BP systolic 131–156; BP diastolic 69–86; PULSE 57–84; RESP 14–20; TEMP 36.6–37.9; O2SAT 90–98
[2022-07-02] MEDS: piperacillin-tazobactam 3.375 GM in sodium chloride 0.9% (plus) 50 ML IV ×3 (03:00→21:12)
[2022-07-02] MEDS: oxyCODONE 5 mg IR Tab/Cap 10 MG PO ×5 (03:00→21:12)
[2022-07-02 05:28] LABS: Basophils % 0.2 %; Eosinophils # 0.2 10^3/uL (0.0-0.8); Eosinophils % 1.5 %; Hematocrit 39.8 % (37.0-47.0); Hemoglobin 13.1 g/dL (11.5-15.3); Lymphocytes # 0.9 10^3/uL (0.8-4.8); Lymphocytes % 9.1 %; Mean Corpuscular HGB Conc 32.9 g/dL (30.0-36.0); Mean Corpuscular Hemoglobin 30.6 pg (28.0-34.0); Mean Platelet Volume 10.9 fL (7.4-10.4); Monocytes # 0.5 10^3/uL (0.2-0.9); Monocytes % 5.1 %; Neutrophils # 8.58 10^3/uL (1.8-7.7); Neutrophils % 83.5 %; Nucleated Red Blood Cells % 0 %; Platelet Count 182 10^3/cmm (130-400); Red Blood Count 4.28 10^6/uL (4.1-5.3); Red Cell Distribution Width 13.6 % (12.1-15.1); White Blood Count 10.3 10^3/uL (4.0-10.0)
[2022-07-02 05:45] LABS: Lactic Sepsis W/Reflex 0.8 mmol/L (0.5-2.2)
[2022-07-02 05:46] LABS: Alanine Aminotransferase 229 U/L (0-33); Albumin Level 3.5 g/dL (3.5-5.2); Alkaline Phosphatase 68 U/L (35-105); Anion Gap 14.9 (5-19); Aspartate Amino Transferase 263 U/L (0-32); Blood Urea Nitrogen 24 mg/dL (8-23); Calcium 8.5 mg/dL (8.5-10.5); Carbon Dioxide 25 mmol/L (22-29); Chloride 99 mmol/L (98-107); Creatinine Clr Calc Pharmacy 52.1695; Globulin 2.2 g/dL (1.3-4.6); Glucose 133 mg/dL (65-115); Lactate Dehydrogenase 204 U/L (135-214); Magnesium 1.9 mg/dL (1.7-2.3); Osmolality Calculated 286 mOsm/kg (285-295); Phosphorus 2.4 mg/dL (2.5-4.5); Potassium 3.9 mmol/L (3.5-5.1); Sodium 135 mmol/L (136-145); Total Bilirubin 2.4 mg/dL (0.15-1.2); Total Protein 5.7 g/dL (6.6-8.7)
[2022-07-02 05:55] LABS: Partial Thromboplastin Time 34.9 SECONDS (23.9-36.7)
[2022-07-02 05:58] LABS: D Dimer 1.88 ug/mIFEU (0-0.59)
[2022-07-02 06:00] LABS: Fibrinogen 405 mg/dL (174-498)
[2022-07-02 06:04] LABS: Platelet Count 182 10^3/cmm (130-400)
[2022-07-02 06:09] LABS: Glucose Point of Care 138 mg/dL (70-110)
[2022-07-02] MEDS: magnesium oxide 400 mg tablet PO (08:21)
[2022-07-02] MEDS: bumetanide 1 mg Tablet PO (08:22)
[2022-07-02] MEDS: gabapentin 400 mg Capsule PO ×3 (08:22→21:12)
[2022-07-02] MEDS: metoprolol succinate ER (24 HR) 100 mg Tablet 200 MG PO (08:22)
[2022-07-02] MEDS: amlodipine 10 mg Tablet PO (08:22)
[2022-07-02] MEDS: atorvastatin 40 mg Tablet 20 MG PO (08:22)
[2022-07-02] MEDS: enoxaparin 40 mg/0.4 mL Syringe SUBCUT (08:23)
[2022-07-02] MEDS: pantoprazole 40 mg SDV IVP (08:24)
[2022-07-02 11:34] LABS: Glucose Point of Care 218 mg/dL (70-110)
[2022-07-02] MEDS: insulin lispro 100 unit/1 mL SUBCUT (12:46)
--- NOTE | 2022-07-02 13:41 | P.PN_ITS ---
Subjective Subjective: Patient is endorsing improvement, she is awake and alert Having bowel movement, feeling hungry I did update her granddaughter as well Liver enzymes trending down No fever overnight She is complaining of improvement of pain in her flanks Vitals/I&O/Wt Last Vital Signs Temp 97.9 F 07/02/22 12:00 Pulse 64 07/02/22 12:00 Resp 16 07/02/22 12:47 BP 133/86 07/02/22 12:00 Pulse Ox 95 07/02/22 12:00 O2 Del Method 07/02/22 12:00 O2 Flow Rate 3 07/01/22 16:00 07/01/22 07/02/22 07/02/22 22:59 06:59 14:59 Intake Total 530 / 1580 1950 / 3530 170 / 170 Output Total 850 / 850 300 / 1150 Balance -320 / 730 1650 / 2380 170 / 170 Weight last 48 hrs Weight 97.522 kg Weight 90.265 kg Weight 90.265 kg Physical Exam Narrative: Patient is awake and alert Scleral icterus Nonfocal neuro exam Abdomen is soft No right upper quadrant tenderness Dsouza sign negative lower extremity no edema Awake and alert Currently on 2 L nasal cannula Data : 07/02/22 05:15 07/02/22 05:15 Micro: Microbiology 06/30/22 23:06 Urine Culture - Preliminary Urine,Clean Catch Gram Negative Rods 06/30/22 21:39 Blood Culture - Preliminary Blood NEGATIVE TO DATE 06/30/22 21:35 Blood Culture - Preliminary Blood A&P Assessment and plan (1) Cholelithiasis: Status: Acute (2) Acute encephalopathy: Status: Acute (3) Acute cystitis: Status: Acute (4) Wound of right foot: Status: Acute (5) Type 2 diabetes mellitus without complications: Status: Acute Qualifiers: Diabetes mellitus watermelon inspector insulin use: without fdc use Qualified Code(s): E11.9 - Type 2 diabetes mellitus without complications (6) B12 deficiency: Status: Acute (7) Gastro-esophageal reflux disease without esophagitis: Status: Acute (8) Essential (primary) hypertension: Status: Acute (9) Vitamin D deficiency: Status: Acute (10) Abnormal transaminases: Status: Acute Plan Abnormal transaminases Acute metabolic encephalopathy related to UTI Most likely her liver enzymes are abnormal secondary to passage of gallstones, initial study showed cholelithiasis however MRCP did not show choledocholithiasis No signs of cholangitis Her antibiotics were escalated yesterday Continue 1 more day on broad-spectrum antibiotics for now Afebrile Cultures negative Acute hypoxia related to hypoventilation Currently on 3 L, wean off oxygen Does not use oxygen at home UTI: Currently on antibiotics Would recommend outpatient general surgery follow-up Type 2 diabetes Currently on low-fat diet Full code PT evaluation Attestations Medical Necessity Statement*: Discharge on Monday Time Spent in Patient Care: 30 Coding Level of Care Code Acute Mailing Section Clerk for Chg Fwd Diagnoses Cholelithiasis K80.20 Acute encephalopathy G93.40 Acute cystitis N30.00 Wound of right foot S91.301A Type 2 diabetes mellitus without complications E11.9 Diabetes mellitus fdc insulin use: without fdc use B12 deficiency E53.8 Gastro-esophageal reflux disease without esophagitis K21.9 Essential (primary) hypertension I10 Vitamin D deficiency E55.9 Abnormal transaminases R74.8
[2022-07-02 16:58] LABS: Glucose Point of Care 134 mg/dL (70-110)
[2022-07-02] MEDS: vancomycin 750 MG in sodium chloride 0.9% 250 ML 250 MG IV (18:15)
[2022-07-02 21:08] LABS: Glucose Point of Care 255 mg/dL (70-110)
[2022-07-03] VITALS (12 sets, daily range): BP systolic 142–188; BP diastolic 69–87; PULSE 54–70; RESP 16–22; TEMP 36.3–37.4; O2SAT 90–92
[2022-07-03] MEDS: oxyCODONE 5 mg IR Tab/Cap 10 MG PO ×5 (00:43→17:55)
[2022-07-03] MEDS: piperacillin-tazobactam 3.375 GM in sodium chloride 0.9% (plus) 50 ML IV ×2 (04:54→12:13)
[2022-07-03 06:01] LABS: Basophils % 0.1 %; Eosinophils # 0.3 10^3/uL (0.0-0.8); Eosinophils % 4.9 %; Hematocrit 42.4 % (37.0-47.0); Lymphocytes # 1.4 10^3/uL (0.8-4.8); Lymphocytes % 19.8 %; Mean Corpuscular Hemoglobin 30.8 pg (28.0-34.0); Mean Corpuscular Volume 93.4 fl (81-99); Mean Platelet Volume 11.8 fL (7.4-10.4); Monocytes # 0.6 10^3/uL (0.2-0.9); Monocytes % 8.5 %; Neutrophils # 4.62 10^3/uL (1.8-7.7); Neutrophils % 66.3 %; Nucleated Red Blood Cells % 0 %; Platelet Count 199 10^3/cmm (130-400); Red Blood Count 4.54 10^6/uL (4.1-5.3); Red Cell Distribution Width 13.5 % (12.1-15.1)
[2022-07-03 06:01] LABS: Glucose Point of Care 192 mg/dL (70-110)
[2022-07-03 06:26] LABS: Alanine Aminotransferase 206 U/L (0-33); Albumin Level 3.5 g/dL (3.5-5.2); Alkaline Phosphatase 108 U/L (35-105); Anion Gap 15.1 (5-19); Aspartate Amino Transferase 174 U/L (0-32); Blood Urea Nitrogen 22 mg/dL (8-23); Calcium 9.2 mg/dL (8.5-10.5); Carbon Dioxide 28 mmol/L (22-29); Chloride 98 mmol/L (98-107); Globulin 3.3 g/dL (1.3-4.6); Glucose 190 mg/dL (65-115); Magnesium 1.9 mg/dL (1.7-2.3); Osmolality Calculated 292 mOsm/kg (285-295); Phosphorus 2.1 mg/dL (2.5-4.5); Potassium 4.1 mmol/L (3.5-5.1); Sodium 137 mmol/L (136-145); Total Bilirubin 1.6 mg/dL (0.15-1.2); Total Protein 6.8 g/dL (6.6-8.7)
[2022-07-03] MEDS: insulin lispro 100 unit/1 mL SUBCUT ×3 (08:47→17:56)
[2022-07-03] MEDS: gabapentin 400 mg Capsule PO ×2 (08:49→15:40)
[2022-07-03] MEDS: magnesium oxide 400 mg tablet PO (08:49)
[2022-07-03] MEDS: metoprolol succinate ER (24 HR) 100 mg Tablet 200 MG PO (08:49)
[2022-07-03] MEDS: pantoprazole 40 mg SDV IVP (10:35)
[2022-07-03] MEDS: enoxaparin 40 mg/0.4 mL Syringe SUBCUT (10:35)
[2022-07-03 11:23] LABS: Glucose Point of Care 201 mg/dL (70-110)
--- NOTE | 2022-07-03 15:10 | P.PN_ITS ---
Subjective Subjective: Transaminases trending down Patient endorsing feeling better She is much more awake and alert today, daughter at the bedside Afebrile Vitals/I&O/Wt Last Vital Signs Temp 98.6 F 07/03/22 12:00 Pulse 54 L 07/03/22 12:00 Resp 16 07/03/22 13:04 BP 173/83 07/03/22 12:00 Pulse Ox 92 07/03/22 12:00 O2 Del Method 07/03/22 12:00 O2 Flow Rate 3 07/01/22 16:00 07/03/22 07/03/22 07/03/22 06:59 14:59 22:59 Intake Total 1150 / 2660 290 / 290 Output Total 600 / 1850 600 / 600 Balance 550 / 810 -310 / -310 Weight last 48 hrs Weight 98.566 kg Weight 97.522 kg Physical Exam Narrative: Patient is endorsing feeling better Awake and alert Abdomen soft Scleral icterus present No right upper quadrant tenderness Abdomen is soft no signs of rigidity or guarding EOMI, PERRLA Nonfocal neuro exam No signs of edema Currently on room air Data : 07/03/22 04:27 07/03/22 04:27 Micro: Microbiology 06/30/22 21:35 Blood Culture - Final Blood Klebsiella pneumonia esbl 06/30/22 23:06 Urine Culture - Final Urine,Clean Catch Klebsiella pneumoniae A&P Assessment and plan (1) Abnormal transaminases: Status: Acute (2) Cholelithiasis: Status: Acute (3) Acute encephalopathy: Status: Acute (4) Acute cystitis: Status: Acute (5) Wound of right foot: Status: Acute (6) Type 2 diabetes mellitus without complications: Status: Acute Qualifiers: Diabetes mellitus usp insulin use: without rat exterminator use Qualified Code(s): E11.9 - Type 2 diabetes mellitus without complications (7) Type 2 diabetes mellitus: Status: Acute Qualifiers: Diabetes mellitus rat exterminator insulin use: without usp use Diabetes mellitus complication status: with hyperglycemia Qualified Code(s): E11.65 - Type 2 diabetes mellitus with hyperglycemia (8) Vitamin D deficiency: Status: Acute Plan Patient's liver enzymes are trending down No signs of cholangitis Gallstone has most likely passed through the ducts Patient is endorsing feeling better Bilirubin trending down No signs of fever Echo is unremarkable She will need gallbladder surgery most likely outpatient once this episode has subsided Am planning to discharge her on Monday Continue low-fat diet DVT prophylaxis on board Full code Daughter at the bedside updated Klebsiella pneumonia UTI we will switch to p.o. antibiotic Attestations Medical Necessity Statement*: Discharge tomorrow Time Spent in Patient Care: 35 Coding Level of Care Code Acute Cigarette Lighter Repairer for Chg Fwd Diagnoses Abnormal transaminases R74.8 Cholelithiasis K80.20 Acute encephalopathy G93.40 Acute cystitis N30.00 Wound of right foot S91.301A Type 2 diabetes mellitus without complications E11.9 Diabetes mellitus usp insulin use: without usp use Type 2 diabetes mellitus E11.65 Diabetes mellitus usp insulin use: without usp use Diabetes mellitus complication status: with hyperglycemia Vitamin D deficiency E55.9
[2022-07-03 17:20] LABS: Glucose Point of Care 189 mg/dL (70-110)
[2022-07-03 21:12] LABS: Glucose Point of Care 225 mg/dL (70-110)
[2022-07-04] VITALS (7 sets, daily range): BP systolic 168–186; BP diastolic 75–87; PULSE 55–68; RESP 12–20; TEMP 36.9–37.2; O2SAT 90–93
[2022-07-04] MEDS: gabapentin 400 mg Capsule PO ×2 (00:32→08:08)
[2022-07-04] MEDS: oxyCODONE 5 mg IR Tab/Cap 10 MG PO ×2 (00:34→11:00)
[2022-07-04 05:11] LABS: Basophils % 0.4 %; Eosinophils # 0.4 10^3/uL (0.0-0.8); Eosinophils % 5.5 %; Hemoglobin 14.4 g/dL (11.5-15.3); Lymphocytes # 1.7 10^3/uL (0.8-4.8); Lymphocytes % 24.5 %; Mean Corpuscular HGB Conc 33.5 g/dL (30.0-36.0); Mean Corpuscular Hemoglobin 30.6 pg (28.0-34.0); Mean Corpuscular Volume 91.3 fl (81-99); Monocytes # 0.7 10^3/uL (0.2-0.9); Monocytes % 10.5 %; Neutrophils # 4.02 10^3/uL (1.8-7.7); Neutrophils % 58.5 %; Nucleated Red Blood Cells % 0 %; Platelet Count 210 10^3/cmm (130-400); Red Blood Count 4.71 10^6/uL (4.1-5.3); Red Cell Distribution Width 13.1 % (12.1-15.1); White Blood Count 6.9 10^3/uL (4.0-10.0)
[2022-07-04 05:34] LABS: Alanine Aminotransferase 151 U/L (0-33); Albumin Level 3.4 g/dL (3.5-5.2); Alkaline Phosphatase 105 U/L (35-105); Anion Gap 12.3 (5-19); Aspartate Amino Transferase 85 U/L (0-32); Blood Urea Nitrogen 18 mg/dL (8-23); Calcium 9.4 mg/dL (8.5-10.5); Carbon Dioxide 29 mmol/L (22-29); Chloride 97 mmol/L (98-107); Globulin 3.5 g/dL (1.3-4.6); Glucose 192 mg/dL (65-115); Osmolality Calculated 285 mOsm/kg (285-295); Potassium 4.3 mmol/L (3.5-5.1); Sodium 134 mmol/L (136-145); Total Bilirubin 1.1 mg/dL (0.15-1.2); Total Protein 6.9 g/dL (6.6-8.7)
[2022-07-04 06:39] LABS: Glucose Point of Care 192 mg/dL (70-110)
[2022-07-04] MEDS: levoFLOXacin 750 mg Tablet PO (07:26)
[2022-07-04] MEDS: insulin lispro 100 unit/1 mL SUBCUT ×2 (08:05→12:59)
[2022-07-04] MEDS: magnesium oxide 400 mg tablet PO (08:08)
[2022-07-04] MEDS: amlodipine 10 mg Tablet PO (08:08)
--- NOTE | 2022-07-04 08:33 | PC.NURSE ---
Patient heart rate is in the 50's. Patient states that at home she does not take 200mg Metoprolol ER, She takes 100mg in the morning and 100mg at night. Here it is ordered for 200mg Daily. Physician notified and received orders to hold metoprolol.
[2022-07-04] MEDS: pantoprazole 40 mg SDV IVP (10:53)
[2022-07-04] MEDS: enoxaparin 40 mg/0.4 mL Syringe SUBCUT (11:00)
[2022-07-04 11:21] LABS: Glucose Point of Care 209 mg/dL (70-110)
--- NOTE | 2022-07-04 11:53 | PC.NURSE ---
Patient rates pain a 5 after pain medication, however, patient said that is what her normal is at home and a 5 is controlled pain for her.
--- NOTE | 2022-07-04 11:59 | P.DS_ITS ---
Discharge Providers Date of Admission: 07/01/22 02:01 Date of Discharge: July 04, 2022 Attending Provider at Admission: Junior Jordan MD Attending Provider at Discharge: Belinda Huertas MD Primary Care Provider: DOMINICK Vizcarra Diagnoses at Discharge Discharge Diagnosis (1) Abnormal transaminases: Status: Acute (2) Cholelithiasis: Status: Acute (3) Acute encephalopathy: Status: Acute (4) Acute cystitis: Status: Acute (5) Wound of right foot: Status: Acute (6) Type 2 diabetes mellitus without complications: Status: Acute Qualifiers: Diabetes mellitus continuous churn buttermaker insulin use: without assisted use Qualified Code(s): E11.9 - Type 2 diabetes mellitus without complications (7) Type 2 diabetes mellitus: Status: Acute Qualifiers: Diabetes mellitus assisted insulin use: without assisted use Diabetes mellitus complication status: with hyperglycemia Qualified Code(s): E11.65 - Type 2 diabetes mellitus with hyperglycemia (8) Vitamin D deficiency: Status: Acute Reason for Visit Reason for Visit: FEVER/WEAKNESS/CONFUSED Hospital Course Hospital Course 72-year-old female who was admitted for management evaluation of metabolic encephalopathy. Etiology was related to UTI. Ascending cholangitis was ruled out, MRCP did not show choledocholithiasis initial gallbladder imaging did reveal cholelithiasis however no such findings were noted on subsequent imaging. Liver enzymes trending down over the span of time. She never spiked any fever. Her mentation improved with IV fluid hydration and antibiotics. Urine culture showed gram-negative rods sensitive to penicillins and cephalosporins. She will be given Augmentin at the time of discharge. I have discontinued her glipizide at the time of discharge hemoglobin A1c 6.7, for her hypertension added chlorthalidone, metoprolol, amlodipine reduced the dose of lisinopril to 40 mg daily instead of twice a day. Discontinued metoprolol succinate. I will give her HIDA scan outpatient prescription along CMP to be done within 3 days. She can follow-up with general surgery once she is done with her HIDA scan. Most likely etiology of abnormal liver enzyme is possible passage of gallstones. Physical Exam Narrative: Patient is endorsing feeling better Awake and alert Abdomen soft Scleral icterus present, improving No right upper quadrant tenderness Abdomen is soft no signs of rigidity or guarding EOMI, PERRLA Nonfocal neuro exam No signs of edema Currently on room air Discharge Data Studies Completed and Pending Completed Studies During Hospitalization Category Date Time Status CT abdomen pelvis wo con [id number] Stat Cat Scan 06/30/22 21:[address] head wo con* [id number] Stat Cat Scan 06/30/22 21:31 Completed XR chest 1V portable [id number] Stat Exams 06/30/22 21:29 Completed MR MRCP [id number] Stat MRI 07/01/22 07:27 Completed CV. echo complete* [id number] Routine Ultrasound 07/01/22 12:56 Completed US gall bladder [id number] Stat Ultrasound 07/01/22 23:15 Completed Pending at discharge Category Date Time Status AMA [Mitochondrial AB Screen] Routine Lab 07/01/22 13:38 Received FELIBERTO Screen w/ Reflex Routine Lab 07/01/22 14:15 Received Blood Culture Stat Lab 06/30/22 21:35 Results Radiology Impressions Abdomen/Pelvis CT 06/30/22 21:29 IMPRESSION: 1. Hepatomegaly 2. Cholelithiasis 3. Moderate hydrops of the gallbladder with possible gallbladder wall thickening. 4. No urinary tract calculi are identified. 5. Extensive degenerative changes in the lumbar spine. Chest X-Ray 06/30/22 21:29 IMPRESSION: No acute infiltrate. Head CT 06/30/22 21:31 IMPRESSION: No acute intracranial abnormality. Cholangiopancreatography MRI 07/01/22 07:27 Impression: Some images are motion artifact. 1. Hepatomegaly diffuse infiltration the liver. No intrahepatic biliary duct dilatation. 2. Fluid-filled hydropic distended gallbladder similar to the recent studies. No visualized cholelithiasis. 3. Normal common bile duct. No evidence of choledocholithiasis. 4. Pancreas appears normal considering motion artifact. No evidence of pancreatic head lesion. No pancreatic ductal dilatation. 5. No other remarkable findings. Gallbladder Ultrasound 07/01/22 23:15 IMPRESSION: 1. Gallbladder hydrops 2. Fatty infiltration of the liver Laboratory Results WBC 6.9 10^3/uL (4.0-10.0) 07/04/22 04:51 RBC 4.71 10^6/uL (4.1-5.3) 07/04/22 04:51 Hgb 14.4 g/dL (11.5-15.3) 07/04/22 04:51 Hct 43.0 % (37.0-47.0) 07/04/22 04:51 MCV 91.3 fl (81-99) 07/04/22 04:51 MCH 30.6 pg (28.0-34.0) 07/04/22 04:51 MCHC 33.5 g/dL (30.0-36.0) 07/04/22 04:51 RDW 13.1 % (12.1-15.1) 07/04/22 04:51 Plt Count 210 10^3/cmm (130-400) 07/04/22 04:51 MPV 11.0 fL (7.4-10.4) H 07/04/22 04:51 Neut % (Auto) 58.5 % 07/04/22 04:51 Lymph % (Auto) 24.5 % 07/04/22 04:51 [place] % (Auto) 10.5 % 07/04/22 04:51 Eos % (Auto) 5.5 % 07/04/22 04:51 Baso % (Auto) 0.4 % 07/04/22 04:51 Neut # (Auto) 4.02 10^3/uL (1.8-7.7) 07/04/22 04:51 Lymph # (Auto) 1.7 10^3/uL (0.8-4.8) 07/04/22 04:51 [place] # (Auto) 0.7 10^3/uL (0.2-0.9) 07/04/22 04:51 Eos # (Auto) 0.4 10^3/uL (0.0-0.8) 07/04/22 04:51 Baso # (Auto) 0.0 10^3/uL (0.0-0.1) 07/04/22 04:51 Nucleated RBC % (auto) 0 % 07/04/22 04:51 Nucleated RBCs # 0.0 /100WBC 07/04/22 04:51 PT 14.50 SECONDS (12.1-14.9) 07/02/22 05:15 INR 1.10 (0.8-1.2) 07/02/22 05:15 APTT 34.9 SECONDS (23.9-36.7) 07/02/22 05:15 Fibrinogen 405 mg/dL (174-498) 07/02/22 05:15 Fibrin Degrad Products Pos, 10-40 ug/mL (NEG) H 07/02/22 05:15 D-Dimer 1.88 ug/mIFEU (0-0.59) H 07/02/22 05:15 Sodium 134 mmol/L (136-145) L 07/04/22 04:51 Potassium 4.3 mmol/L (3.5-5.1) 07/04/22 04:51 Chloride 97 mmol/L (98-107) L 07/04/22 04:51 Carbon Dioxide 29 mmol/L (22-29) 07/04/22 04:51 Anion Gap 12.3 (5-19) 07/04/22 04:51 BUN 18 mg/dL (8-23) 07/04/22 04:51 Creatinine 0.8 mg/dL (0.5-0.9) 07/04/22 04:51 GFR Calculation Not Reportable 07/04/22 04:51 Glucose 192 mg/dL (65-115) H 07/04/22 04:51 POC Glucose 209 mg/dL (70-110) H 07/04/22 11:17 Estimat Average Glucose 146 07/01/22 13:38 Hemoglobin A1c 6.7 % (4.0-6.0) H 07/01/22 13:38 Calculated Osmolality 285 mOsm/kg (285-295) 07/04/22 04:51 Lactic Acid 0.8 mmol/L (0.5-2.2) 07/02/22 05:15 Lactate 1.8 mmol/L (0.5-2.2) 07/01/22 14:15 Calcium 9.4 mg/dL (8.5-10.5) 07/04/22 04:51 Phosphorus 2.1 mg/dL (2.5-4.5) L 07/03/22 04:27 Magnesium 1.9 mg/dL (1.7-2.3) 07/03/22 04:27 Total Bilirubin 1.1 mg/dL (0.15-1.2) 07/04/22 04:51 Direct Bilirubin 2.60 mg/dL (0.00-0.30) H 07/01/22 06:31 Indirect Bilirubin 0.30 07/01/22 06:31 GGT 184 U/L (5-36) H 07/01/22 06:31 AST 85 U/L (0-32) H 07/04/22 04:51 ALT 151 U/L (0-33) H 07/04/22 04:51 Alkaline Phosphatase 105 U/L (35-105) 07/04/22 04:51 Lactate Dehydrogenase 204 U/L (135-214) 07/02/22 05:15 Lactate Dehydrogenase Cancelled 07/02/22 05:15 Troponin T Baseline 19 ng/L (0-10) H 06/30/22 21:39 Troponin T 120 Minute 19.83 ng/L (0-10) H 07/01/22 01:11 Delta Troponin T 0.83 ABS# (0-10) 07/01/22 01:11 Troponin T Hi Sens 6Hr 20.06 ng/L (0-10) H 07/01/22 02:51 Troponin T Hi Sens 6Hr Delta 1.06 ng/L (0-12) 07/01/22 02:51 C-Reactive Protein 106.3 mg/L (0.0-4.9) H 07/01/22 06:31 NT-Pro-B Natriuret Pep 1180 pg/mL (0-125) H 06/30/22 21:39 Total Protein 6.9 g/dL (6.6-8.7) 07/04/22 04:51 Albumin 3.4 g/dL (3.5-5.2) L 07/04/22 04:51 Globulin 3.5 g/dL (1.3-4.6) 07/04/22 04:51 Lipase 17 U/L (13-60) 07/01/22 06:31 Tumor Marker AFP 0.8 ng/mL (0-8.3) 07/01/22 13:38 Procalcitonin 30.41 ng/mL (0-0.5) H 07/01/22 06:31 TSH 0.87 uIU/mL (0.27-4.20) 07/01/22 06:31 Urine Color Yellow (Yellow) 06/30/22 23:06 Urine Appearance Clear (CLEAR) 06/30/22 23:06 Urine pH 7 (5-7) 06/30/22 23:06 Ur Specific [place] 1.010 (1.005-1.030) 06/30/22 23:06 Urine Protein Neg (Negative) 06/30/22 23:06 Urine Glucose (UA) 1+ (Normal) H 06/30/22 23:06 Urine Ketones Negative (Negative) 06/30/22 23:06 Urine Blood Neg (Negative) 06/30/22 23:06 Urine Nitrate Positive (Negative) H 06/30/22 23:06 Urine Bilirubin 1+ (Negative) H 06/30/22 23:06 Urine Urobilinogen 1 mg/dL (Negative) H 06/30/22 23:06 Ur Leukocyte Esterase Negative (Negative) 06/30/22 23:06 Urine RBC 0-4 /hpf (0-2) H 06/30/22 23:06 Urine WBC 0-4 /hpf (0-5) H 06/30/22 23:06 Ur Squamous Epith Cells 0-4 /hpf (0-5) H 06/30/22 23:06 Amorphous Sediment Not Reportable 06/30/22 23:06 Urine Bacteria 4+ /hpf (NONE) H 06/30/22 23:06 Hepatitis A IgM Ab Non-reactive (Nonreactive) 07/01/22 14:15 Hep Bs Antigen Non-reactive (Nonreactive) 07/01/22 14:15 Hep Bs Antibody < 3.5 (11.5-1000) L 07/01/22 14:15 Hep B Core Total Ab Non-reactive (Nonreactive) 07/01/22 14:15 Hepatitis C Antibody Non-reactive (Nonreactive) 07/01/22 14:15 SARS-CoV-2 Ag (Rapid) Negative (Negative) 06/30/22 22:20 Vitals Last Vital Signs Temp 98.4 F 07/04/22 11:50 Pulse 64 07/04/22 11:50 Resp 18 07/04/22 11:50 BP 168/75 07/04/22 11:50 Pulse Ox 92 07/04/22 11:50 O2 Del Method 07/04/22 11:50 O2 Flow Rate 3 07/04/22 00:36 Discharge Plan Discharge Patient Disposition: Home Condition: Stable Prescriptions: New amoxicillin-pot clavulanate 875-125 mg tablet 1 tab PO BID Qty: 6 0RF metoprolol tartrate 50 mg tablet 100 mg PO BID Qty: 60 3RF chlorthalidone 25 mg tablet 25 mg PO DAILY Qty: 30 3RF Continued diclofenac sodium 1 % gel 4 g TOPICAL QID PRN (Reason: pain) Qty: 300 5RF famotidine 20 mg tablet 20 mg PO BID Qty: 60 5RF (DME) BD Luer-Beth Syringe 3 mL 25 gauge x 1 syringe See Rx Instructions .ROUTE .COMPLEX Qty: 1 5RF Dose Instruction: USE ONE SYRINGE MONTHLY TO INJECT B12 Rx Instructions: USE ONE SYRINGE MONTHLY TO INJECT B12 oxycodone 15 mg tablet 15 mg PO Q4H PRN (Reason: Pain) levalbuterol tartrate 45 mcg/actuation HFA aerosol inhaler 2 puff INHALATION Q6H PRN (Reason: Shortness Of Breath) oxycodone 10 mg tablet 10 mg PO QID PRN (Reason: Pain) ondansetron HCl 4 mg tablet 4 mg PO Q8H PRN (Reason: Nausea And Vomiting) magnesium oxide 400 mg (241.3 mg magnesium) tablet 400 mg PO DAILY gabapentin 800 mg tablet 800 mg PO TID amlodipine 10 mg tablet 10 mg PO DAILY cyanocobalamin (vitamin B-12) 1,000 mcg/mL solution 1,000 mcg SUBCUT Q30D Rx Instructions: FOR 5 MONTHS bumetanide 1 mg tablet 1 mg PO DAILY PRN (Reason: Edema) ergocalciferol (vitamin D2) 1,250 mcg (50,000 unit) capsule 50,000 unit PO Q7D Rx Instructions: on monday Fish Oil 340-1,000 mg capsule 1 cap PO BEDTIME dapagliflozin 10 mg tablet 10 mg PO DAILY Changed lisinopril 40 mg tablet 40 mg PO DAILY Qty: 30 0RF Rx Instructions: dose increase Held simvastatin 40 mg tablet 40 mg PO BEDTIME Hold Instructions: Resume on 07/18/22. Discontinued celecoxib 200 mg capsule 200 mg PO BID PRN (Reason: Pain) glipizide 10 mg tablet extended release 24hr 10 mg PO DAILY metoprolol succinate 200 mg tablet extended release 24 hr 100 mg PO BID metformin 1,000 mg tablet 1,000 mg PO BID fenofibrate 160 mg tablet 160 mg PO DAILY Discharge Orders: Discharge Order (Routine); Ordered 07/04/22 Ordered By: Belinda Huertas Other Ambulatory Orders: Comprehensive Metabolic Panel (Routine) Timeframe: 3 Days Facility: [facility] - Location: Lab - Main Lab Ordered By: Belinda Huertas [place] hepatobiliary w phar* [id number] (Routine) Timeframe: 3 Days Facility: [facility] - Location: Radiology Ordered By: Belinda Huertas DME: Don (Order) Location: None Selected Ordered By: Belinda Huertas Referrals: Keaton Barragan DO [Physician] - 1 month Sheri Black FNP [Primary Care Provider] - 1 week Discharge Diet: Low Fat Discharge Activity: Increase activity as tolerated Patient Instructions: Opioid Safety Discharge Attestations Time Spent in Discharge Care*: less than 30 min Quality Metrics Clinical Quality Measures [ No reported AMI, CVA or VTE this stay] Coding Level of Care Code Acute Chg FW DC note Diagnoses Abnormal transaminases R74.8 Cholelithiasis K80.20 Acute encephalopathy G93.40 Acute cystitis N30.00 Wound of right foot S91.301A Type 2 diabetes mellitus without complications E11.9 Diabetes mellitus continuous churn buttermaker insulin use: without assisted use Type 2 diabetes mellitus E11.65 Diabetes mellitus continuous churn buttermaker insulin use: without assisted use Diabetes mellitus complication status: with hyperglycemia Vitamin D deficiency E55.9
--- NOTE | 2022-07-04 13:44 | PC.NURSE ---
Discharge Note Patient discharged to home via accompanied by son. Discharge instructions reviewed with patient and/or marketing representative. Mobile pharmacy medications and/or prescriptions provided. Belongings/home medications returned.
[2022-07-04 15:48] LABS: Anti-Nuclear Antibody Screen NEGATIVE (NEGATIVE)
== END 2022-07-04 13:46 | disposition home or self-care (01) | DRG 689 ==
LOC: ER 07-01 02:02 → ER IP 07-01 02:05 → MEDSURG 07-01 06:45
PROVIDERS: Admitting Provider Family Medicine; Emergency Provider Emergency Medicine; PCP Nurse Practitioner Family; Visit Provider Internal Medicine
DX: N30.00 Acute cystitis without hematuria (principal); G93.41 Metabolic encephalopathy; N12 Tubulo-interstitial nephritis, not specified as acute or chronic; E11.42 Type 2 diabetes mellitus with diabetic polyneuropathy; E78.5 Hyperlipidemia, unspecified; G89.29 Other chronic pain; M54.9 Dorsalgia, unspecified; Z87.440 Personal history of urinary (tract) infections; M19.90 Unspecified osteoarthritis, unspecified site; K21.9 Gastro-esophageal reflux disease without esophagitis; E66.9 Obesity, unspecified; Z68.38 Body mass index [BMI] 38.0-38.9, adult; K80.20 Calculus of gallbladder without cholecystitis without obstruction; E53.8 Deficiency of other specified B group vitamins; E55.9 Vitamin D deficiency, unspecified; Z79.891 Long term (current) use of opiate analgesic; B96.1 Klebsiella pneumoniae [K. pneumoniae] as the cause of diseases classified elsewhere
CPT/HCPCS: 36415; 36416; 70450; 71045; 74176; 74181; 76705; 80053; 81001; 82105; 82247; 82248; 82962; 82977; 83036; 83516; 83605; 83615; 83690; 83735; 83880; 84100; 84145; 84443; 84484; 85025; 85049; 85362; 85378; 85384; 85610; 85730; 86038; 86140; 86705; 86706; 86709; 86803; 87040; 87077; 87086; 87186; 87205; 87340; 87426; 93005; 93306; 96365; 96367; 96372; 97116; 97161; 99285; C9113; J1650; J1815; J2543; J3370; J7030; J7050

== ENCOUNTER → 2022-07-11 15:37 | Outpatient (BNVA) | payer MEDICARE, MEDICAID, SELFPAY | PROVIDERS: PCP Nurse Practitioner Family; Visit Provider Nurse Practitioner Family | DX: R30.9 Painful micturition, unspecified (principal); E78.5 Hyperlipidemia, unspecified; G62.9 Polyneuropathy, unspecified | CPT/HCPCS: 80053; 80061; 81000; 83735; 85025 ==

== ENCOUNTER → 2022-08-31 08:58 | Outpatient (BNVA) | payer MEDICARE, MEDICAID, SELFPAY | PROVIDERS: PCP Nurse Practitioner Family; Visit Provider Nurse Practitioner Family | DX: R79.89 Other specified abnormal findings of blood chemistry (principal) | CPT/HCPCS: 80053 ==

== ENCOUNTER 2022-09-11 20:33 | Inpatient (IN) | payer MEDICARE, MEDICAID, SELFPAY ==
[2022-09-11] VITALS (9 sets, daily range): BP systolic 134–234; BP diastolic 72–109; PULSE 65–91; RESP 16–22; TEMP 36.4; O2SAT 90–98
--- NOTE | 2022-09-11 20:48 | ECG_ITS ---
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 Measurements Intervals [place] Rate: 68 P: 12 TN: 164 QRS: -25 QRSD: 92 T: 51 QT: 394 QTc: 422 Interpretive Statements SINUS RHYTHM BORDERLINE LEFT AXIS DEVIATION [QRS AXIS < -20] VOLTAGE CRITERIA FOR LVH [MEETS CRITERIA IN ONE OF: R(aVL), S(V1), R(V5), R(V5/V6)+S(V1)] MINIMAL ST DEPRESSION [0.025+ mV ST DEPRESSION] Compared to ECG 07/01/2022 03:38:21 Left ventricular hypertrophy now present ST (T wave) deviation now present Electronically Signed On 09-12-2022 14:52:17 CDT by Bobby Whiteside M.D. [id number]
--- NOTE | 2022-09-11 20:55 | XRR_ITS ---
PROCEDURE INFORMATION: Exam: XR Chest Exam date and time: 09/11/2022 9:14 PM Age: 72 years old Clinical indication: Orthopnea (sob when lying down); Additional info: Epigastric pain TECHNIQUE: Imaging protocol: Radiologic exam of the chest. Views: 1 view. COMPARISON: CR (CHEST, ) 06/30/2022 9:54 PM FINDINGS: Lungs: Poor inspiratory effort with some crowding of pulmonary markings and possible accentuation of the apparent heart size. Pleural spaces: Unremarkable. No pleural effusion. No pneumothorax. Heart/Mediastinum: See Lungs finding. Bones/joints: Bilateral moderate primary glenohumeral osteoarthritis. XR/XR chest 1V portable [id number] IMPRESSION: Poor inspiratory effort with some crowding of pulmonary markings and possible accentuation of the apparent heart size.
[2022-09-11 21:04] LABS: Basophils # 0.1 10^3/uL (0.0-0.1); Basophils % 0.2 %; Hemoglobin 18.7 g/dL (11.5-15.3); Lymphocytes # 1.1 10^3/uL (0.8-4.8); Lymphocytes % 5.2 %; Mean Corpuscular HGB Conc 33.4 g/dL (30.0-36.0); Mean Corpuscular Hemoglobin 30.7 pg (28.0-34.0); Mean Corpuscular Volume 91.8 fl (81-99); Mean Platelet Volume 10.9 fL (7.4-10.4); Monocytes # 0.8 10^3/uL (0.2-0.9); Monocytes % 3.6 %; Neutrophils # 19.02 10^3/uL (1.8-7.7); Neutrophils % 90.3 %; Nucleated Red Blood Cells % 0 %; Platelet Count 332 10^3/cmm (130-400); Red Cell Distribution Width 13.3 % (12.1-15.1); White Blood Count 21.1 10^3/uL (4.0-10.0)
[2022-09-11 21:17] LABS: INR 1.06 (0.8-1.2)
[2022-09-11] MEDS: lidocaine 2% viscous 15 ML, aluminum-mag hydrox-simethicon 30 ML, sucralfate oral liq 1 GM PO (21:17)
[2022-09-11] MEDS: labetalol 5 mg/mL SDV 20mL 10 MG IVP (21:17)
[2022-09-11 21:18] LABS: Partial Thromboplastin Time 24.4 SECONDS (23.9-36.7)
[2022-09-11] MEDS: nitroglycerin 1 gm/inch oint Pkt 2 INCH TOPICAL (21:18)
[2022-09-11] MEDS: nitroglycerin 0.4 mg sublingual Tablet SUBLINGUAL ×2 (21:18→23:46)
[2022-09-11 21:44] LABS: Lactate (Lactic Acid level) 2.1 mmol/L (0.5-2.2)
--- NOTE | 2022-09-11 21:46 | CTR_ITS ---
PROCEDURE INFORMATION: Exam: CT Abdomen And Pelvis With Contrast Exam date and time: 09/11/2022 10:15 PM Age: 72 years old Clinical indication: Abdominal pain; Additional info: Upper abd pain TECHNIQUE: Imaging protocol: Computed tomography of the abdomen and pelvis with contrast. Radiation optimization: All CT scans at this facility use at least one of these dose optimization techniques: automated exposure control; mA and/or kV adjustment per patient size (includes targeted exams where dose is matched to clinical indication); or iterative reconstruction. Contrast material: OMNIPAQUE 350; Contrast volume: 100 ml; Contrast route: INTRAVENOUS (IV); COMPARISON: MR MRCP [id number] 07/01/2022 10:45 AM RADIATION DOSE METRICS: Total DLP (mGy-cm): 1334.91 FINDINGS: Liver: Normal. No mass. Gallbladder and bile ducts: Enlarged greater than or equal to 5.0 cm transverse diameter gallbladder consistent with gallbladder hydrops. Multiple tiny calcified gallstones. Pancreas: Moderate radiographic pancreatitis. Spleen: Calcified splenic granulomas. Adrenal glands: Normal. No mass. Kidneys and ureters: Normal. No hydronephrosis. Stomach and bowel: Mild descending and/or sigmoid colon diverticulosis without diverticulitis. Appendix: No evidence of appendicitis. Intraperitoneal space: Moderate inflammation surrounding the pancreas with extension inferiorly in the mesenteric fat and left retroperitoneal fat adjacent to the Gerota's fascia including areas surrounding the C-loop of the duodenum most consistent with moderate radiographic pancreatitis. Vasculature: Calcification of the abdominal aorta and/or iliac arteries consistent with atherosclerotic vessel disease. Lymph nodes: Calcified bilateral hilar nodes and/or mediastinal nodes and/or lung granulomas consistent with old granulomatous disease. Urinary bladder: Unremarkable as visualized. Reproductive: Unremarkable as visualized. Bones/joints: Idiopathic S-shaped scoliosis. Severe multilevel spine degenerative changes including degenerative disc disease, spondylosis and facet degenerative changes. Soft tissues: Unremarkable. CT/CT abdomen pelvis w con* [id number] IMPRESSION: 1. Enlarged greater than or equal to 5.0 cm transverse diameter gallbladder consistent with gallbladder hydrops. 2. Multiple tiny calcified gallstones. 3. Moderate radiographic pancreatitis.
[2022-09-11 21:54] LABS: Alanine Aminotransferase 24 U/L (0-33); Albumin Level 3.8 g/dL (3.5-5.2); Alkaline Phosphatase 53 U/L (35-105); Aspartate Amino Transferase 24 U/L (0-32); Blood Urea Nitrogen 34 mg/dL (8-23); C Reactive Protein 13.7 mg/L (0.0-4.9); Calcium 9.5 mg/dL (8.5-10.5); Carbon Dioxide 21 mmol/L (22-29); Chloride 101 mmol/L (98-107); Globulin 3.5 g/dL (1.3-4.6); Glucose 280 mg/dL (65-115); NT Pro B Type Natriuretic Pept 635 pg/mL (0-125); Osmolality Calculated 300 mOsm/kg (285-295); Sodium 136 mmol/L (136-145); Total Bilirubin 0.4 mg/dL (0.15-1.2); Total Protein 7.3 g/dL (6.6-8.7)
[2022-09-11 22:03] LABS: Lipase 2489 U/L (13-60)
[2022-09-11] MEDS: iohexol 350 mg/mL 100 mL Btl IV (22:17)
--- NOTE | 2022-09-11 22:56 | ECG_ITS ---
[facility] Test Date: 2022-09-11 Pat Name: Elena Salinas Department: Room: Gender: Female Chief Of Service: : 1950 Requested By: Charli Rios Order Number: [id number] Sendy MD: Bobby Whiteside M.D. Measurements Intervals [place] Rate: 78 P: 64 OR: 183 QRS: -31 QRSD: 94 T: 57 QT: 375 QTc: 429 Interpretive Statements SINUS RHYTHM LEFT AXIS DEVIATION [QRS AXIS < -30] PATTERN CONSISTENT WITH PULMONARY DISEASE VOLTAGE CRITERIA FOR LVH [MEETS CRITERIA IN ONE OF: R(aVL), S(V1), R(V5), R(V5/V6)+S(V1)] Compared to ECG 09/11/2022 20:44:34 ST (T wave) deviation no longer present Electronically Signed On 09-12-2022 14:52:39 CDT by Bobby Whiteside M.D. [id number]
--- NOTE | 2022-09-11 22:57 | USR_ITS ---
PROCEDURE INFORMATION: Exam: US Abdomen, Limited; Right Upper Quadrant Exam date and time: 09/11/2022 11:13 PM Age: 72 years old Clinical indication: Abdominal pain; Acute; Additional info: Epigastric pain pancreatitis TECHNIQUE: Imaging protocol: Real time ultrasound of the abdomen with image documentation. Limited exam focused on the right upper quadrant. COMPARISON: US gall bladder [id number] 07/01/2022 1:27 AM FINDINGS: Liver: 14.7 cm liver. Gallbladder: Sonographically positive Dsouza's sign suggesting possible cholecystitis. Biliary ducts: 1.7 mm common bile duct. Pancreas: Pancreas partially obscured by bowel gas. Right kidney: 9.7 x 4.9 x 5.5 cm right kidney. US/US gall bladder [id number] IMPRESSION: 1. Sonographically positive Dsouza's sign suggesting possible cholecystitis. 2. Pancreas partially obscured by bowel gas.
[2022-09-11] MEDS: morphine 4 mg/mL SDV 1 mL IVP (23:07)
[2022-09-11] MEDS: ondansetron 2 mg/ML SDV 2 mL 4 MG IVP (23:10)
[2022-09-11 23:20] LABS: Troponin(5th) Baseline 14 ng/L (0-10)
[2022-09-11] MEDS: piperacillin-tazobactam 4.5 GM in sodium chloride 0.9% (plus) 50 ML IV (23:22)
--- NOTE | 2022-09-11 23:32 | W.ED.ABDPA2 ---
HPI - Abdominal Pain General: Chief Complaint: Abdominal Pain Stated Complaint: ABD PAIN Time Seen by Provider: 09/11/22 20:39 Source: patient History of Present Illness: 72-year-old female. She presents with epigastric pain radiating into her back. No fever. She is nauseated. She is somewhat short of breath. It also radiates into her chest to some degree. She has no prior history of coronary disease. She does have a history of COPD and diabetes. Pertinent past history: other Onset (ago): hour(s) Location: Epigastric Severity: severe Quality: sharp Radiation: back Migration to: no migration Exacerbating factors: movement Relieving factors: nothing Associated Symptoms: Reports nausea; Denies constipation, diarrhea, dysuria, fever(s), hematochezia, melena and vomiting Review of Systems Const: Denies: fever(s) ENMT: Denies: throat pain Card: Reports: chest pain; Denies: palpitations Resp: Reports: dyspnea; Denies: productive cough or non-productive cough GI: Reports: nausea; Denies: vomiting, diarrhea, constipation, hematochezia or melena : Denies: dysuria Musc: Reports: back pain Skin/Breast: Denies: rash Neuro: Reports: headache(s) PFSH ED PFSH: Medical History Abnormal transaminases Acute cystitis Acute encephalopathy B12 deficiency Bunion of right foot Cholelithiasis Chronic back pain Chronic osteoarthritis Dyslipidemia Encounter for counseling for care management of patient with chronic conditions and complex health needs using nurse-based model Essential (primary) hypertension Gastro-esophageal reflux disease without esophagitis Neuropathy Obesity, unspecified Seasonal allergies Type 2 diabetes mellitus Type 2 diabetes mellitus without complications Vitamin D deficiency Wound of right foot Surgical History Hx of knee surgery (~10/2000) left Family History Mother Cancer colon Father Cancer pancreatic Family/Other CAD (coronary artery disease) Social History Smoking and tobacco status: never smoked Second hand smoke exposure: No Alcohol intake: never Lives independently: Yes Household members: significant other Marital status: Life Partner Current occupational status: retired History of recent travel: No Current gender identity: Female Physical Exam Const: GENERAL APPEARANCE: cooperative and ill appearing; not comfortable and not frail appearing NUTRITIONAL APPEARANCE: obese ORIENTATION/CONSCIOUSNESS: Yes awake, Yes oriented to person, Yes oriented to place and Yes oriented to time HENMT: COMMON NORMALS: normocephalic, atraumatic and Normal external nose present HEAD & SCALP: normocephalic and atraumatic FACE & SINUS: normal facial exam and face symmetric NOSE: Normal external nose present Eye: COMMON NORMALS: Equal, round and reactive pupils present and EOMs intact bilaterally PUPIL: Yes Equal, round and reactive pupils present Neck/C-Spine: GENERAL: Yes trachea midline Chest: CHEST: Yes Symmetrical chest wall rise Resp: COMMON NORMALS: normal respiratory effort, No retractions, No use of accessory muscles and clear to auscultation bilaterally AUSCULTATION: clear to auscultation bilaterally Cardio: COMMON NORMALS: regular rate and regular rhythm RATE: regular rate RHYTHM: regular rhythm GI: COMMON NORMALS: Normal to inspection, nondistended, normoactive bowel sounds present PALPATION: Yes Tenderness to palpation present (GI) (Epigastric right upper quad) Extremity: COMMON NORMALS: no pedal edema Neuro: ROLANDO COMA SCALE: document GCS findings [place] coma scale eye opening: Spontaneous [place] coma scale verbal response: Orientated [place] coma scale motor response: Obey commands Rolando coma scale total score: 15 SENSORIUM/ORIENTATION: Yes oriented to person, Yes oriented to place and Yes oriented to time SENSORY EXAM: Yes extremities (intact) Psych: COMMON NORMALS: speech normal SPEECH: Yes normal speech Skin: COMMON NORMALS: no rashes or lesions noted GENERAL SKIN EXAM: no rashes or lesions noted Course Vital Signs: Vital signs: Vital Signs Temperature 97.6 F 09/11/22 20:41 Pulse Rate 74 09/11/22 23:51 Respiratory Rate 20 H 09/11/22 23:51 Blood Pressure 134/72 09/11/22 23:51 Pulse Oximetry 90 09/11/22 23:51 Oxygen Delivery Me thod 09/11/22 21:22 Oxygen Flow Rate 5 09/11/22 21:22 MDM - Abdominal Pain Medical Decision Making Patient is afebrile. She is no longer as hypertensive. Blood pressure currently 154/80. Heart rate of 80. Saturations 94%. Her white blood cell count is 21. Hemoglobin is 18. Bicarbonate is 21, creatinine is 1.3 liver enzymes including total bilirubin are normal. CT shows an enlarged gallbladder indicative of hydrops. Tiny calcified gallstones. Moderate pancreatitis present without abscess. Gallbladder ultrasound reveals a normal bile duct size, with no wall thickening or pericholecystic fluid. She will be admitted for acute pancreatitis. Surgery is consulted, and will monitor the patient, but without signs of acute cholecystitis present, no emergent surgery at this point. Hospitalist will admit. Lab Data : 09/11/22 20:44 09/11/22 20:44 Labs/Radiology: Radiology Impressions Chest X-Ray 09/11/22 20:55 IMPRESSION: Poor inspiratory effort with some crowding of pulmonary markings and possible accentuation of the apparent heart size. Abdomen/Pelvis CT 09/11/22 21:46 IMPRESSION: 1. Enlarged greater than or equal to 5.0 cm transverse diameter gallbladder consistent with gallbladder hydrops. 2. Multiple tiny calcified gallstones. 3. Moderate radiographic pancreatitis. Gallbladder Ultrasound 09/11/22 22:57 IMPRESSION: 1. Sonographically positive Dsouza's sign suggesting possible cholecystitis. 2. Pancreas partially obscured by bowel gas. Laboratory Results WBC 21.1 10^3/uL (4.0-10.0) H 09/11/22 20:44 RBC 6.10 10^6/uL (4.1-5.3) H 09/11/22 20:44 Hgb 18.7 g/dL (11.5-15.3) H 09/11/22 20:44 Hct 56.0 % (37.0-47.0) H 09/11/22 20:44 MCV 91.8 fl (81-99) 09/11/22 20:44 MCH 30.7 pg (28.0-34.0) 09/11/22 20:44 MCHC 33.4 g/dL (30.0-36.0) 09/11/22 20:44 RDW 13.3 % (12.1-15.1) 09/11/22 20:44 Plt Count 332 10^3/cmm (130-400) 09/11/22 20:44 MPV 10.9 fL (7.4-10.4) H 09/11/22 20:44 Neut % (Auto) 90.3 % 09/11/22 20:44 Lymph % (Auto) 5.2 % 09/11/22 20:44 Wise % (Auto) 3.6 % 09/11/22 20:44 Eos % (Auto) 0.0 % 09/11/22 20:44 Baso % (Auto) 0.2 % 09/11/22 20:44 Neut # (Auto) 19.02 10^3/uL (1.8-7.7) H 09/11/22 20:44 Lymph # (Auto) 1.1 10^3/uL (0.8-4.8) 09/11/22 20:44 Wise # (Auto) 0.8 10^3/uL (0.2-0.9) 09/11/22 20:44 Eos # (Auto) 0.0 10^3/uL (0.0-0.8) 09/11/22 20:44 Baso # (Auto) 0.1 10^3/uL (0.0-0.1) 09/11/22 20:44 Nucleated RBC % (auto) 0 % 09/11/22 20:44 Nucleated RBCs # 0.0 /100WBC 09/11/22 20:44 PT 14.10 SECONDS (12.1-14.9) 09/11/22 20:44 INR 1.06 (0.8-1.2) 09/11/22 20:44 APTT 24.4 SECONDS (23.9-36.7) 09/11/22 20:44 Sodium 136 mmol/L (136-145) 09/11/22 20:44 Potassium 5.0 mmol/L (3.5-5.1) 09/11/22 20:44 Chloride 101 mmol/L (98-107) 09/11/22 20:44 Carbon Dioxide 21 mmol/L (22-29) L 09/11/22 20:44 Anion Gap 19.0 (5-19) 09/11/22 20:44 BUN 34 mg/dL (8-23) H 09/11/22 20:44 Creatinine 1.3 mg/dL (0.5-0.9) H 09/11/22 20:44 GFR Calculation Not Reportable 09/11/22 20:44 Glucose 280 mg/dL (65-115) H 09/11/22 20:44 Calculated Osmolality 300 mOsm/kg (285-295) H 09/11/22 20:44 Lactate 2.1 mmol/L (0.5-2.2) 09/11/22 20:44 Calcium 9.5 mg/dL (8.5-10.5) 09/11/22 20:44 Total Bilirubin 0.4 mg/dL (0.15-1.2) 09/11/22 20:44 AST 24 U/L (0-32) 09/11/22 20:44 ALT 24 U/L (0-33) 09/11/22 20:44 Alkaline Phosphatase 53 U/L (35-105) 09/11/22 20:44 Troponin T Baseline 14 ng/L (0-10) H 09/11/22 20:44 Troponin T 120 Minute 16.77 ng/L (0-10) H 09/11/22 23:06 Delta Troponin T 2.77 ABS# (0-10) 09/11/22 23:06 C-Reactive Protein 13.7 mg/L (0.0-4.9) H 09/11/22 20:44 NT-Pro-B Natriuret Pep 635 pg/mL (0-125) H 09/11/22 20:44 Total Protein 7.3 g/dL (6.6-8.7) 09/11/22 20:44 Albumin 3.8 g/dL (3.5-5.2) 09/11/22 20:44 Globulin 3.5 g/dL (1.3-4.6) 09/11/22 20:44 Lipase 2489 U/L (13-60) H 09/11/22 20:44 Discharge Plan Discharge Patient Disposition: Admitted As Inpatient Clinical Impression: Pancreatitis Condition: Fair Prescriptions: No Action diclofenac sodium 1 % gel 4 g TOPICAL QID PRN (Reason: pain) Qty: 300 5RF famotidine 20 mg tablet See Rx Instructions .ROUTE .COMPLEX Qty: 60 5RF Dose Instruction: TAKE ONE TABLET BY MOUTH TWICE DAILY Rx Instructions: TAKE ONE TABLET BY MOUTH TWICE DAILY (DME) BD Luer-Beth Syringe 3 mL 25 gauge x 1 syringe See Rx Instructions .ROUTE .COMPLEX Qty: 1 5RF Dose Instruction: USE ONE SYRINGE MONTHLY TO INJECT B12 Rx Instructions: USE ONE SYRINGE MONTHLY TO INJECT B12 ergocalciferol (vitamin D2) 1,250 mcg (50,000 unit) capsule See Rx Instructions .ROUTE .COMPLEX Qty: 4 5RF Dose Instruction: TAKE ONE CAPSULE BY MOUTH WEEKLY Rx Instructions: TAKE ONE CAPSULE BY MOUTH WEEKLY gabapentin 800 mg tablet 800 mg PO TID Qty: 90 5RF bumetanide 1 mg tablet 1 mg PO DAILY PRN (Reason: Edema) Qty: 30 5RF cyanocobalamin (vitamin B-12) 1,000 mcg/mL solution 1,000 mcg SUBCUT Q30D Qty: 1 5RF Rx Instructions: FOR 5 MONTHS lisinopril 40 mg tablet 40 mg PO BID Qty: 60 5RF Rx Instructions: dose increase ondansetron HCl 4 mg tablet 4 mg PO Q8H PRN (Reason: Nausea And Vomiting) Qty: 30 1RF fluticasone propionate [Flonase Allergy Relief] 50 mcg/actuation spray,suspension 1 spray intranasal BID Qty: 16 5RF Rx Instructions: administer into each nostril fenofibrate 160 mg tablet 160 mg PO DAILY Qty: 30 5RF glipizide 10 mg tablet extended release 24hr 10 mg PO DAILY Qty: 30 5RF metformin 1,000 mg tablet See Rx Instructions .ROUTE .COMPLEX Qty: 60 5RF Dose Instruction: TAKE ONE TABLET BY MOUTH TWICE DAILY Rx Instructions: TAKE ONE TABLET BY MOUTH TWICE DAILY simvastatin 40 mg tablet See Rx Instructions .ROUTE .COMPLEX Qty: 30 5RF Dose Instruction: TAKE ONE TABLET BY MOUTH ONCE DAILY Rx Instructions: TAKE ONE TABLET BY MOUTH ONCE DAILY metoprolol tartrate 50 mg tablet 100 mg PO BID Qty: 120 3RF magnesium oxide 400 mg (241.3 mg magnesium) tablet 400 mg PO DAILY Qty: 30 5RF oxycodone 15 mg tablet 15 mg PO Q4H PRN (Reason: Pain) levalbuterol tartrate 45 mcg/actuation HFA aerosol inhaler 2 puff INHALATION Q6H PRN (Reason: Shortness Of Breath) oxycodone 10 mg tablet 10 mg PO QID PRN (Reason: Pain) Fish Oil 340-1,000 mg capsule 1 cap PO BEDTIME Referrals: Sheri Black FNP [Primary Care Provider] - Coding Level of Care Code ED Director Talent for Chg Fwd Exam Comprehensive
[2022-09-11] MEDS: amlodipine 10 mg Tablet PO (23:46)
[2022-09-11] MEDS: labetalol 5 mg/mL SDV 20mL 20 MG IVP (23:46)
[2022-09-12] VITALS (13 sets, daily range): BP systolic 94–176; BP diastolic 56–93; PULSE 71–97; RESP 16–38; TEMP 36.6–38.4; O2SAT 90–94
[2022-09-12 00:20] LABS: Troponin 5 2HR 16.77 ng/L (0-10)
[2022-09-12 00:23] LABS: Troponin 5 2HR Delta 2.77 ABS# (0-10)
--- NOTE | 2022-09-12 00:51 | PM.HP ---
Providers/Chief Complaint Admitting Physician: Cara Soto MD Primary Care Provider: DOMINICK Vizcarra Chief Complaint: ABD PAIN History of Present Illness Elena Salinas is a 72 year old female with a past medical history of type 2 diabetes mellitus, neuropathy, dyslipidemia, chronic back pain on chronic opiate medications, who presents [facility] with chief complaint of epigastric pain which started around 24 hours ago. Complains of radiation into her back and lower abdomen. Also complains of worsening pain when taking a deep breath. CT of her abdomen and pelvis performed in the emergency room showed enlarged transverse diameter gallbladder consistent with gallbladder hydrops. Multiple tiny calcified gallstones were seen. There was also note made of moderate radiographic pancreatitis. Elevated levels of lipase are noted. She denies any past h/o pancreatitis. .No h/o alcohol consumption. Review of prior records shows that by patient was admitted here in June 2022 for a UTI and metabolic encephalopathy at which time CT of her abdomen had also showed findings of possible hydrops and gallstones. And follow-up MRCP was performed which showed hepatomegaly with diffuse infiltration of the liver without intrahepatic biliary duct dilatation. There was no visualized cholelithiasis. CBD was normal. Pancreas was normal on this study. She was recommended to undergo a HIDA scan as outpatient and follow-up with general surgery, however this is yet to happen. Review of Systems General: Reports: 10 or more systems reviewed and unremarkable except in HPI and below Const: Denies: fever(s), chills or body aches Eyes: Denies: change in vision, blurry vision or photophobia ENMT: Reports: hoarseness; Denies: throat pain, enlarged tonsils, odynophagia or nasal congestion Card: Denies: chest pain, palpitations, irregular heart rhythm, edema, swelling of feet/ankles, lightheadedness, pre-syncope, dyspnea on exertion or orthopnea Resp: Denies: dyspnea, productive cough, non-productive cough, wheezing, stridor, pain on inspiration, change in phlegm color, hemoptysis or chest congestion GI: Denies: abdominal pain, nausea, vomiting, hematemesis, coffee ground emesis, dysphagia, heartburn, diarrhea, constipation, GI cramping, change in stool character, hematochezia or melena : Denies: flank pain, difficulty voiding, dysuria, urinary frequency, urinary urgency, urinary hesitancy or hematuria Musc: Denies: neck pain, back pain, extremity pain, joint swelling, joint warmth or deformity Neuro: Denies: headache(s), numbness in extremities, weakness in extremities, sensory changes, difficulty walking, frequent falls, dizziness, vertigo, behavioral changes, Slurred speech present or seizure-like activity Psych: Denies: anxiety, depression, suicidal ideation or homicidal ideation Endo: Denies: polyuria, polydipsia, tired all the time, cold intolerance or hot flashes Asa/Lymph: Denies: easy bruising or easy bleeding Medications/Allergies Home Medications Medication Instructions Recorded Confirmed Last Taken Type diclofenac sodium 1 % topical gel 4 g topical QID PRN pain #300 grams 02/24/22 09/12/22 Unknown Rx levalbuterol tartrate 45 2 puff inhalation Q6H PRN 07/01/22 09/12/22 Unknown History mcg/actuation aerosol inhaler Shortness Of Breath omega-3 fatty acids-fish oil 340 1 cap PO BEDTIME 07/01/22 07/11/22 Unknown History mg-1,000 mg capsule (Fish Oil) oxycodone 10 mg tablet 10 mg PO QID PRN Pain 07/01/22 09/12/22 Unknown History oxycodone 15 mg tablet 15 mg PO Q4H PRN Pain 07/01/22 09/12/22 Unknown History syringe with needle 3 mL 25 gauge #1 ea 07/19/22 Unknown Rx x 1 (BD Luer-Beth Syringe) bumetanide 1 mg tablet 1 mg PO DAILY PRN Edema #30 tabs 08/30/22 09/12/22 Unknown Rx cyanocobalamin (vitamin B-12) 1,000 mcg SUBCUT Q30D #1 mL 08/30/22 09/12/22 Unknown Rx 1,000 mcg/mL injection solution ergocalciferol (vitamin D2) 1,250 See Rx Instructions .Route 08/30/22 09/12/22 Unknown Rx mcg (50,000 unit) capsule .COMPLEX #4 caps fenofibrate 160 mg tablet 160 mg PO DAILY #30 tabs 08/30/22 09/12/22 Unknown Rx fluticasone propionate 50 1 spray intranasal BID #16 grams 08/30/22 09/12/22 Unknown Rx mcg/actuation nasal spray,suspension (Flonase Allergy Relief) gabapentin 800 mg tablet 800 mg PO TID #90 tabs 08/30/22 09/12/22 Unknown Rx glipizide 10 mg tablet, extended 10 mg PO DAILY #30 tabs 08/30/22 09/12/22 Unknown Rx release 24 hr lisinopril 40 mg tablet 40 mg PO BID #60 tabs 08/30/22 09/12/22 Unknown Rx magnesium oxide 400 mg (241.3 mg 400 mg PO DAILY #30 tabs 08/30/22 09/12/22 Unknown Rx magnesium) tablet metoprolol tartrate 50 mg tablet 100 mg PO BID #120 tabs 08/30/22 09/12/22 Unknown Rx ondansetron HCl 4 mg tablet 4 mg PO Q8H PRN Nausea And 08/30/22 09/12/22 Unknown Rx Vomiting #30 tabs famotidine 20 mg tablet 20 mg PO 2XD 09/12/22 09/12/22 Unknown History metformin 1,000 mg tablet 1,000 mg PO 2XD 09/12/22 09/12/22 Unknown History simvastatin 40 mg tablet 40 mg PO DAILY 09/12/22 09/12/22 Unknown History Allergies Allergy/AdvReac Type Severity Reaction Status Date / Time No Known Allergies Allergy Verified 09/12/22 05:58 PFSH Acute PFSH: Medical History Abnormal transaminases Acute cystitis Acute encephalopathy B12 deficiency Bunion of right foot Cholelithiasis Chronic back pain Chronic osteoarthritis Dyslipidemia Encounter for counseling for care management of patient with chronic conditions and complex health needs using nurse-based model Essential (primary) hypertension Gastro-esophageal reflux disease without esophagitis Neuropathy Obesity, unspecified Seasonal allergies Type 2 diabetes mellitus Type 2 diabetes mellitus without complications Vitamin D deficiency Wound of right foot Surgical History Hx of knee surgery (~10/2000) left Family History Mother Cancer colon Father Cancer pancreatic Family/Other CAD (coronary artery disease) Social History Smoking and tobacco status: never smoked Second hand smoke exposure: No Alcohol intake: never Lives independently: Yes Household members: significant other Marital status: Life Partner Current occupational status: retired History of recent travel: No Current gender identity: Female Vitals/I&O/Wt Last Vital Signs Temp 97.6 F 09/11/22 20:41 Pulse 74 09/11/22 23:51 Resp 20 H 09/11/22 23:51 BP 134/72 09/11/22 23:51 Pulse Ox 90 09/11/22 23:51 O2 Del Method 09/11/22 21:22 O2 Flow Rate 5 09/11/22 21:22 Physical Exam Narrative: General: No acute distress,appears dehydrated, AO x3 HEENT: PERRLA, pupils bilaterally equal and reactive, pallors not present Chest: Normal vesicular breath sounds, no added sounds, equal good air entry bilaterally CVS: S1-S2 regular, no murmurs, no tachycardia, no gallops, no rubs Abdomen: Soft, TTP epigastric and RUQ, ovrall with discomfort to palpation. Neuro: No focal deficits, no facial deformity, AO x3, power 5/5 in all limbs Data : 09/11/22 20:44 09/11/22 20:44 Other Labs: Radiology Impressions Chest X-Ray 09/11/22 20:55 IMPRESSION: Poor inspiratory effort with some crowding of pulmonary markings and possible accentuation of the apparent heart size. Abdomen/Pelvis CT 09/11/22 21:46 IMPRESSION: 1. Enlarged greater than or equal to 5.0 cm transverse diameter gallbladder consistent with gallbladder hydrops. 2. Multiple tiny calcified gallstones. 3. Moderate radiographic pancreatitis. Gallbladder Ultrasound 09/11/22 22:57 IMPRESSION: 1. Sonographically positive Dsouza's sign suggesting possible cholecystitis. 2. Pancreas partially obscured by bowel gas. Laboratory Results WBC 21.1 10^3/uL (4.0-10.0) H 09/11/22 20:44 RBC 6.10 10^6/uL (4.1-5.3) H 09/11/22 20:44 Hgb 18.7 g/dL (11.5-15.3) H 09/11/22 20:44 Hct 56.0 % (37.0-47.0) H 09/11/22 20:44 MCV 91.8 fl (81-99) 09/11/22 20:44 MCH 30.7 pg (28.0-34.0) 09/11/22 20:44 MCHC 33.4 g/dL (30.0-36.0) 09/11/22 20:44 RDW 13.3 % (12.1-15.1) 09/11/22 20:44 Plt Count 332 10^3/cmm (130-400) 09/11/22 20:44 MPV 10.9 fL (7.4-10.4) H 09/11/22 20:44 Neut % (Auto) 90.3 % 09/11/22 20:44 Lymph % (Auto) 5.2 % 09/11/22 20:44 Richardson % (Auto) 3.6 % 09/11/22 20:44 Eos % (Auto) 0.0 % 09/11/22 20:44 Baso % (Auto) 0.2 % 09/11/22 20:44 Neut # (Auto) 19.02 10^3/uL (1.8-7.7) H 09/11/22 20:44 Lymph # (Auto) 1.1 10^3/uL (0.8-4.8) 09/11/22 20:44 Richardson # (Auto) 0.8 10^3/uL (0.2-0.9) 09/11/22 20:44 Eos # (Auto) 0.0 10^3/uL (0.0-0.8) 09/11/22 20:44 Baso # (Auto) 0.1 10^3/uL (0.0-0.1) 09/11/22 20:44 Nucleated RBC % (auto) 0 % 09/11/22 20:44 Nucleated RBCs # 0.0 /100WBC 09/11/22 20:44 PT 14.10 SECONDS (12.1-14.9) 09/11/22 20:44 INR 1.06 (0.8-1.2) 09/11/22 20:44 APTT 24.4 SECONDS (23.9-36.7) 09/11/22 20:44 Sodium 136 mmol/L (136-145) 09/11/22 20:44 Potassium 5.0 mmol/L (3.5-5.1) 09/11/22 20:44 Chloride 101 mmol/L (98-107) 09/11/22 20:44 Carbon Dioxide 21 mmol/L (22-29) L 09/11/22 20:44 Anion Gap 19.0 (5-19) 09/11/22 20:44 BUN 34 mg/dL (8-23) H 09/11/22 20:44 Creatinine 1.3 mg/dL (0.5-0.9) H 09/11/22 20:44 GFR Calculation Not Reportable 09/11/22 20:44 Glucose 280 mg/dL (65-115) H 09/11/22 20:44 Calculated Osmolality 300 mOsm/kg (285-295) H 09/11/22 20:44 Lactate 2.1 mmol/L (0.5-2.2) 09/11/22 20:44 Calcium 9.5 mg/dL (8.5-10.5) 09/11/22 20:44 Total Bilirubin 0.4 mg/dL (0.15-1.2) 09/11/22 20:44 AST 24 U/L (0-32) 09/11/22 20:44 ALT 24 U/L (0-33) 09/11/22 20:44 Alkaline Phosphatase 53 U/L (35-105) 09/11/22 20:44 Troponin T Baseline 14 ng/L (0-10) H 09/11/22 20:44 Troponin T 120 Minute 16.77 ng/L (0-10) H 09/11/22 23:06 Delta Troponin T 2.77 ABS# (0-10) 09/11/22 23:06 C-Reactive Protein 13.7 mg/L (0.0-4.9) H 09/11/22 20:44 NT-Pro-B Natriuret Pep 635 pg/mL (0-125) H 09/11/22 20:44 Total Protein 7.3 g/dL (6.6-8.7) 09/11/22 20:44 Albumin 3.8 g/dL (3.5-5.2) 09/11/22 20:44 Globulin 3.5 g/dL (1.3-4.6) 09/11/22 20:44 Lipase 2489 U/L (13-60) H 09/11/22 20:44 A&P Assessment and plan (1) Pancreatitis: Patient presenting today with abdominal pain, found to have elevated serum lipase and CT abdomen consistent with inflammation of the pancreas. Overall clinical impression that of acute pancreatitis. Possibility of GB stone pancreatitis not excluded at this time, however most recently MRCP in June 2022 did not show any evidence of cholelithiasis. Note was made of hydrops gallbladder. Additionally LFTs including alkaline phosphatase are within normal range today which would be odd for gallbladder stone associated pancreatitis. N.p.o. for now. IV fluids normal saline at 50 cc an hour. Careful IV hydration given history of grade 2 diastolic heart failure, patient takes Bumex as needed at home. Monitor closely her urine output, volume status, IV fluids may need to be adjusted based on these. Pain control with Dilaudid 1 mg IV every 6 hours as needed. Surgery consult given persistence of abnormal appearing gallbladder, now also with pancreatitis. Check TG and alcohol levels. Denies any recent chanegs in her medications. It appears multiple medications were changed on her last visit in Jun 2022, however patient has not made these changes. (2) Cholecystitis: Patient reports tenderness in the epigastric and right upper quadrant region. This may be related to pancreatitis, however positive Dsouza sign remains a possibility. Surgery consult, concern for possible acute cholecystitis. Empiric piperacillin tazobactam while awaiting surgery evaluation. (3) Essential (primary) hypertension: Blood pressure upon arrival to the emergency room 240/110 mmHg. She has received 2 doses of iv labetalol in [facility] ER following which her BP is improved at 134/70 at time of my assessment. (4) Type 2 diabetes mellitus without complications: Insulin sliding scale. Hold OHAs, Qualifiers: Diabetes mellitus intermodal customer service insulin use: without intermodal customer service use Qualified Code(s): E11.9 - Type 2 diabetes mellitus without complications Attestations Medical Necessity Statement*: anticipate >2midnight admissionf or acute pancreatitis and possible cholecytitis, need for IVF, Iv antibiotics, surgery assessment Coding Level of Care Code Acute Hand Cigar Maker for [facility] Fw Diagnoses Pancreatitis K85.90 Cholecystitis K81.9 Essential (primary) hypertension I10 Type 2 diabetes mellitus without complications E11.9 Diabetes mellitus intermodal customer service insulin use: without intermediate use
[2022-09-12 01:12] LABS: Triglycerides 163 mg/dL (0-150)
[2022-09-12 01:28] LABS: Alcohol Level < 10 mg/dL (0-10)
[2022-09-12] MEDS: sodium chloride 0.9% 1,000 ML 50 ML IV (01:38)
[2022-09-12] MEDS: famotidine 20 mg/2 mL INJ IVP ×3 (01:38→23:46)
[2022-09-12] MEDS: enoxaparin 40 mg/0.4 mL Syringe SUBCUT ×2 (01:42→23:46)
--- NOTE | 2022-09-12 04:10 | ECG_ITS ---
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 Measurements Intervals [place] Rate: 81 P: 43 CT: 197 QRS: -15 QRSD: 93 T: 55 QT: 379 QTc: 442 Interpretive Statements SINUS RHYTHM MODERATE VOLTAGE CRITERIA FOR LVH, CONSIDER NORMAL VARIANT [MEETS CRITERIA IN ONE OF: R(aVL), S(V1), R(V5), R(V5/V6)+S(V1)] Compared to ECG 09/11/2022 23:32:12 Left-axis deviation no longer present Electronically Signed On 09-12-2022 14:57:05 CDT by Bobby Whiteside M.D. [id number]
[2022-09-12] MEDS: HYDROmorphone 1 mg/mL INJ 1 mL IVP ×4 (05:05→21:52)
[2022-09-12 05:27] LABS: Troponin 5 6HR 26.13 ng/L (0-10)
[2022-09-12 05:40] LABS: Troponin 5 6HR Delta 12.13 ng/L (0-12)
--- NOTE | 2022-09-12 05:53 | PM.CONSULT ---
Providers/Reason For Consult Consulting Physician/Specialty*: Abdon Gtz MD Reason for Consult*: Abdon Gtz MD Requesting Physician: Dr. Thakkar Attending Physician: Cara Soto MD Primary Care Provider: DOMINICK Vizcarra History of Present Illness History of Present Illness Ms. Elena Salinas is a pleasant 72 year old female presents with epigastric pain radiating to her back to the emergency department. Patient reports that the pain is sharp gets worse with movement and nothing seems to make it better. Associated with nausea. Denies any other constitutional symptoms. Further work-up showed WBC count of 21.1, hemoglobin 13.7 platelet count 332, creatinine 1.3, and serum lipase 2500. Further work-up in the form of CT of the abdomen pelvis did show; 1. Enlarged greater than or equal to 5.0 cm transverse diameter gallbladder consistent with gallbladder hydrops. 2. Multiple tiny calcified gallstones. 3. Moderate radiographic pancreatitis. ? An ultrasound of the gallbladder was done also and showed 1. Sonographically positive Dsouza's sign suggesting possible cholecystitis. 2. Pancreas partially obscured by bowel gas. Back in June [address] of the abdomen pelvis was done and showed 1. Hepatomegaly 2. Cholelithiasis 3. Moderate hydrops of the gallbladder with possible gallbladder wall thickening. 4. No urinary tract calculi are identified. 5. Extensive degenerative changes in the lumbar spine. And MRCP also was done that showed ?1.? Hepatomegaly diffuse infiltration the liver. No intrahepatic biliary duct dilatation. 2.? Fluid-filled hydropic distended gallbladder similar to the recent studies. No visualized cholelithiasis. 3.? Normal common bile duct. No evidence of choledocholithiasis. 4.? Pancreas appears normal considering motion artifact. No evidence of pancreatic head lesion. No pancreatic ductal dilatation. 5.? No other remarkable findings. ? And on 07/01/2022 ultrasound of the gallbladder and liver showed; 1. Gallbladder hydrops 2. Fatty infiltration of the liver ? General surgery was consulted for further evaluation. Review of Systems General: Reports: 10 or more systems reviewed and unremarkable except in HPI and below Medications/Allergies Home Medications Medication Instructions Recorded Confirmed Last Taken Type diclofenac sodium 1 % topical gel 4 g topical QID PRN pain #300 grams 02/24/22 09/12/22 Unknown Rx levalbuterol tartrate 45 2 puff inhalation Q6H PRN 07/01/22 09/12/22 Unknown History mcg/actuation aerosol inhaler Shortness Of Breath omega-3 fatty acids-fish oil 340 1 cap PO BEDTIME 07/01/22 07/11/22 Unknown History mg-1,000 mg capsule (Fish Oil) oxycodone 10 mg tablet 10 mg PO QID PRN Pain 07/01/22 09/12/22 Unknown History oxycodone 15 mg tablet 15 mg PO Q4H PRN Pain 07/01/22 09/12/22 Unknown History syringe with needle 3 mL 25 gauge #1 ea 07/19/22 Unknown Rx x 1 (BD Luer-Beth Syringe) bumetanide 1 mg tablet 1 mg PO DAILY PRN Edema #30 tabs 08/30/22 09/12/22 Unknown Rx cyanocobalamin (vitamin B-12) 1,000 mcg SUBCUT Q30D #1 mL 08/30/22 09/12/22 Unknown Rx 1,000 mcg/mL injection solution ergocalciferol (vitamin D2) 1,250 See Rx Instructions .Route 08/30/22 09/12/22 Unknown Rx mcg (50,000 unit) capsule .COMPLEX #4 caps fenofibrate 160 mg tablet 160 mg PO DAILY #30 tabs 08/30/22 09/12/22 Unknown Rx fluticasone propionate 50 1 spray intranasal BID #16 grams 08/30/22 09/12/22 Unknown Rx mcg/actuation nasal spray,suspension (Flonase Allergy Relief) gabapentin 800 mg tablet 800 mg PO TID #90 tabs 08/30/22 09/12/22 Unknown Rx glipizide 10 mg tablet, extended 10 mg PO DAILY #30 tabs 08/30/22 09/12/22 Unknown Rx release 24 hr lisinopril 40 mg tablet 40 mg PO BID #60 tabs 08/30/22 09/12/22 Unknown Rx magnesium oxide 400 mg (241.3 mg 400 mg PO DAILY #30 tabs 08/30/22 09/12/22 Unknown Rx magnesium) tablet metoprolol tartrate 50 mg tablet 100 mg PO BID #120 tabs 08/30/22 09/12/22 Unknown Rx ondansetron HCl 4 mg tablet 4 mg PO Q8H PRN Nausea And 08/30/22 09/12/22 Unknown Rx Vomiting #30 tabs famotidine 20 mg tablet 20 mg PO 2XD 09/12/22 09/12/22 Unknown History metformin 1,000 mg tablet 1,000 mg PO 2XD 09/12/22 09/12/22 Unknown History simvastatin 40 mg tablet 40 mg PO DAILY 09/12/22 09/12/22 Unknown History Allergies Allergy/AdvReac Type Severity Reaction Status Date / Time No Known Allergies Allergy Verified 09/12/22 05:58 Current Medications Generic Name Dose Route Start Last Admin Trade Name Freq PRN Reason Stop Dose Admin Enoxaparin Sodium 40 mg 09/12/22 00:45 09/12/22 01:42 Enoxaparin 40 Mg/0.4 Ml Syringe SUBCUT 40 mg Q24H JOSH Administration Famotidine 20 mg 09/12/22 00:45 09/12/22 01:38 Famotidine 20 Mg/2 Ml Inj IVP 20 mg Q12H JOSH Administration Hydromorphone HCl 1 mg 09/12/22 00:41 09/12/22 05:05 Hydromorphone 1 Mg/Ml Inj 1 Ml IVP 1 mg Q6H PRN Administration pain Sodium Chloride 1,000 mls @ 50 mls/hr 09/12/22 00:45 09/12/22 01:38 Sodium Chloride 0.9% IV 50 mls/hr .Q20H JOSH Administration PFSH Acute PFSH: Medical History Abnormal transaminases Acute cystitis Acute encephalopathy B12 deficiency Bunion of right foot Cholelithiasis Chronic back pain Chronic osteoarthritis Dyslipidemia Encounter for counseling for care management of patient with chronic conditions and complex health needs using nurse-based model Essential (primary) hypertension Gastro-esophageal reflux disease without esophagitis Neuropathy Obesity, unspecified Seasonal allergies Type 2 diabetes mellitus Type 2 diabetes mellitus without complications Vitamin D deficiency Wound of right foot Surgical History Hx of knee surgery (~10/2000) left Family History Mother Cancer colon Father Cancer pancreatic Family/Other CAD (coronary artery disease) Social History Smoking and tobacco status: never smoked Second hand smoke exposure: No Alcohol intake: never Lives independently: Yes Household members: significant other Marital status: Life Partner Current occupational status: retired History of recent travel: No Current gender identity: Female Vitals/I&O/Wt Last Vital Signs Temp 99 F 09/12/22 04:00 Pulse 82 09/12/22 04:00 Resp 18 09/12/22 05:05 BP 143/76 09/12/22 04:00 Pulse Ox 94 09/12/22 04:00 O2 Del Method 09/12/22 01:43 O2 Flow Rate 5 09/11/22 21:22 09/11/22 09/11/22 09/12/22 14:59 22:59 06:59 Intake Total 50 / 50 Balance 50 / 50 Weight last 48 hrs Weight 204 lb 4 oz Physical Exam Narrative: Patient is conscious alert oriented X3 No apparent distress BMI 36.2 Head and neck examination PERRLA no masses no cervical lymphadenopathy no jaundice Cardiac examination audible S1-S2 no murmurs no gallops no arrhythmias Chest is clear bilateral,abscence of Rhonchi or wheezes,no surgical emphysema Abdomen upper quadrant and epigastric tenderness, obese , otherwise soft no organomegaly guarding or rigidity/no signs of peritonitis Data : 09/11/22 20:44 09/11/22 20:44 Micro: Microbiology 09/12/22 04:50 Blood Culture - Preliminary Blood SPECIMEN COLLECTED 09/12/22 04:53 Blood Culture - Preliminary Blood SPECIMEN COLLECTED A&P Assessment and plan (1) Pancreatitis: After history taking, physical examination and reviewing the chart and images with my personal interpretation. I do not see evidence of gallbladder stones except on one of the CT scan of the abdomen pelvis that was done recently show some sludge. I would like to review the images with our radiologist. If patient truly does have gallbladder stones she would benefit from laparoscopic cholecystectomy during this hospitalization that would explain her pancreatitis yet if there are no evidence of stones. I would prefer to treat conservatively. Will continue to follow on the patient's clinical progress Can have clear liquid diet for now and n.p.o. after midnight Follow on the trend of lipase enzyme Assurance and education All questions have been answered and all concerns have been addressed to patient's satisfaction. Consult Attestations Medical Necessity Statement: Per admitting service Coding Level of Care Code Acute Store Group Manager for [facility] Diagnoses Pancreatitis K85.90
[2022-09-12] MEDS: piperacillin-tazobactam 3.375 GM in sodium chloride 0.9% (plus) 50 ML IV ×3 (06:15→22:21)
--- NOTE | 2022-09-12 06:30 | PC.NURSE ---
rounded on patient and said patient was ok to start clear diet today, make NPO tomorrow at midnight. If patient starts having increased pain or nausea make NPO again. Made aware of patients pain not controlled with PRN Dilaudid. to discuss with before changing pain medication.
[2022-09-12 06:35] LABS: Glucose Point of Care 318 mg/dL (70-110)
[2022-09-12] MEDS: insulin lispro 100 unit/1 mL SUBCUT ×3 (08:31→20:50)
--- NOTE | 2022-09-12 08:54 | US_ITS ---
WS: [id number] Limited abdomen ULTRASOUND HISTORY: Rule out cholelithiasis COMPARISON: 09/11/[address] Study dedicated to the gallbladder. Gallbladder is mildly hydropic. No mobile stones are identified. No wall thickening or pericholecystic fluid. There is a focus of nonshadowing soft tissue along the p osterior wall of the gallbladder corresponding to the CT findings. No increased vascularity. Common b ile duct is normal at 4 mm. US/US gall bladder [id number] IMPRESSION: 1. Cannot confirm shadowing gallstones. There is a soft tissue nodule in the p osterior wall of the gallbladder which is nonmobile and does not shadow. May be tumefactive sludge or small polyp or early gallbladder wall nodule. 2. No bile duct dilatation. 3. Notified Abdon Gtz MD at 09/12/2022 10:33 AM.
--- NOTE | 2022-09-12 10:15 | P.PN_ITS ---
Subjective Subjective: Patient was seen this morning, she is laying on her side, she tells me that she cannot take in clear liquids, she feels nauseous, and pain Vitals/I&O/Wt Last Vital Signs Temp 98.9 F 09/12/22 07:24 Pulse 71 09/12/22 08:12 Resp 16 09/12/22 07:24 BP 94/56 09/12/22 07:24 Pulse Ox 93 09/12/22 08:12 O2 Del Method 09/12/22 08:12 O2 Flow Rate 3 09/12/22 08:12 09/11/22 09/12/22 09/12/22 22:59 06:59 14:59 Intake Total 267.5 / 267.5 Balance 267.5 / 267.5 Weight last 48 hrs Weight 92.646 kg Physical Exam Const: COMMON NORMALS: no acute distress and patient oriented x3 Resp: COMMON NORMALS: normal respiratory effort, No retractions, No use of accessory muscles and clear to auscultation bilaterally AUSCULTATION: clear to auscultation bilaterally Cardio: COMMON NORMALS: regular rate, regular rhythm, S1 normal heart sound p resent and S2 normal heart sound present RATE: regular rate RHYTHM: regular rhythm HEART SOUNDS: S1 normal heart sound present and S2 normal heart sound present GI: OTHER: Diffuse abdominal tenderness, abdominal distention, no guarding, no rebound, no rigidity, decreased bowel sounds Extremity: COMMON NORMALS: no pedal edema Neuro: COMMON NORMALS: patient oriented x3 Psych: COMMON NORMALS: mental status grossly normal Data : 09/11/22 20:44 09/11/22 20:44 Micro: Microbiology 09/12/22 04:50 Blood Culture - Preliminary Blood SPECIMEN COLLECTED 09/12/22 04:53 Blood Culture - Preliminary Blood SPECIMEN COLLECTED A&P Assessment and plan (1) Pancreatitis: Patient presenting today with abdominal pain, found to have elevated serum lipase and CT abdomen consistent with inflammation of the pancreas. Overall clinical impression that of acute pancreatitis. Possibility of GB stone pancreatitis not excluded at this time, however most recently MRCP in June 2022 did not show any evidence of cholelithiasis. Note was made of hydrops gallbladder. Additionally LFTs including alkaline phosphatase are within normal range today which would be odd for gallbladder stone associated pancreatitis. On clear liquids for now IV fluids normal saline at 75 cc Careful IV hydration given history of grade 2 diastolic heart failure, patient takes Bumex as needed at home. Monitor closely her urine output, volume status, IV fluids may need to be adjusted based on these. Pain control with Dilaudid 1 mg IV every 4 hours as needed. Zofran and Reglan for nausea vomiting Surgery consult given persistence of abnormal appearing gallbladder, now also with pancreatitis. Check TG 163 and alcohol levels within normal limits. Denies any recent chanegs in her medications. It appears multiple medications were changed on her last visit in Jun 2022, however patient has not made these changes. (2) Cholecystitis: Patient reports tenderness in the epigastric and right upper quadrant region. This may be related to pancreatitis, however positive Dsouza sign remains a possibility. Surgery consult, concern for possible acute cholecystitis. Empiric piperacillin tazobactam (3) Essential (primary) hypertension: Blood pressure upon arrival to the emergency room 240/110 mmHg. She has received 2 doses of iv labetalol in [facility] ER following which her BP is improved at 134/70 at time of my assessment. (4) Type 2 diabetes mellitus without complications: Insulin sliding scale. Hold OHAs, Qualifiers: Diabetes mellitus residential insulin use: without residential use Qualified Code(s): E11.9 - Type 2 diabetes mellitus without complications Attestations Medical Necessity Statement*: Patient requires hospitalization for acute pancreatitis, concerns for gallbladder stones, cholecystitis intractable pain, nausea vomiting, dehydration Coding Level of Care Code Acute Audio Experience Expert for [facility] Diagnoses Pancreatitis K85.90 Cholecystitis K81.9 Essential (primary) hypertension I10 Type 2 diabetes mellitus without complications E11.9 Diabetes mellitus residential insulin use: without residential use
[2022-09-12] MEDS: metoclopramide 5 mg/mL SDV 2 mL IVP ×2 (10:57→21:49)
[2022-09-12 11:58] LABS: Glucose Point of Care 207 mg/dL (70-110)
[2022-09-12] MEDS: sodium chloride 0.9% 1,000 ML 75 ML IV (16:47)
[2022-09-12 17:03] LABS: Glucose Point of Care 234 mg/dL (70-110)
--- NOTE | 2022-09-12 19:37 | PC.NURSE ---
Patient had not had the urge to urinate for the previous shift. Bladder scan revealed 725ml of urine, patient was assisted to bedside commode and voided 200ml. Specimen was sent for UA.
[2022-09-12] MEDS: acetaminophen 325 mg Tablet 650 MG PO ×2 (20:01→23:54)
[2022-09-12 20:17] LABS: Add Urine Microscopic? YES; Bilirubin Urine Neg (Negative); Blood Urine Neg (Negative); Glucose Urine UA 1+ (Normal); Ketones Urine 1+ (Negative); Leukocyte Esterase Urine Negative (Negative); Nitrate Urine Negative (Negative); Protein Urine 1+ (Negative); Specific Gravity, Urine 1.015 (1.005-1.030); Urine Appearance Hazy (CLEAR); Urine Color Yellow (Yellow); Urobilinogen Urine Norm (Negative); pH Urine 5 (5-7)
[2022-09-12 20:26] LABS: Add Urine Culture? Yes; Bacteria Urine 4+ /hpf; Squamous Epithelial Cell Urine 0-4 /hpf (0-5)
--- NOTE | 2022-09-12 20:38 | PC.NURSE ---
Messaged regarding patient not urinating, having >700 on bladder scan and only able to void 200. Dr Soto ordered to insert otero catheter. Also messaged to make her aware of patient running a fever of 101.2. Patient currently on antibiotics. No new orders regarding fever.
[2022-09-12 20:44] LABS: Glucose Point of Care 207 mg/dL (70-110)
[2022-09-12] MEDS: lanolin oint 7 gm 1 APPLIC TOPICAL (23:55)
[2022-09-13] VITALS (11 sets, daily range): BP systolic 146–187; BP diastolic 69–89; PULSE 99–112; RESP 12–36; TEMP 36.6–38.1; O2SAT 89–96
[2022-09-13] MEDS: HYDROmorphone 1 mg/mL INJ 1 mL IVP ×2 (01:33→05:39)
[2022-09-13] MEDS: acetaminophen 325 mg Tablet 650 MG PO ×2 (03:47→20:37)
[2022-09-13] MEDS: sodium chloride 0.9% 1,000 ML 75 ML IV (04:40)
[2022-09-13 05:17] LABS: Basophils # 0.1 10^3/uL (0.0-0.1); Basophils % 0.3 %; Eosinophils # 0.1 10^3/uL (0.0-0.8); Eosinophils % 0.5 %; Hematocrit 45.2 % (37.0-47.0); Hemoglobin 14.7 g/dL (11.5-15.3); Lymphocytes # 1.6 10^3/uL (0.8-4.8); Lymphocytes % 6.5 %; Mean Corpuscular HGB Conc 32.5 g/dL (30.0-36.0); Mean Corpuscular Hemoglobin 30.2 pg (28.0-34.0); Mean Corpuscular Volume 92.8 fl (81-99); Mean Platelet Volume 10.7 fL (7.4-10.4); Monocytes # 1.8 10^3/uL (0.2-0.9); Monocytes % 7.1 %; Neutrophils # 21.26 10^3/uL (1.8-7.7); Neutrophils % 83.9 %; Nucleated Red Blood Cells % 0 %; Platelet Count 256 10^3/cmm (130-400); Red Blood Count 4.87 10^6/uL (4.1-5.3); White Blood Count 25.3 10^3/uL (4.0-10.0)
[2022-09-13 05:28] LABS: Alanine Aminotransferase 13 U/L (0-33); Albumin Level 2.9 g/dL (3.5-5.2); Alkaline Phosphatase 36 U/L (35-105); Anion Gap 17.4 (5-19); Aspartate Amino Transferase 17 U/L (0-32); Blood Urea Nitrogen 50 mg/dL (8-23); Calcium 8.5 mg/dL (8.5-10.5); Carbon Dioxide 18 mmol/L (22-29); Chloride 100 mmol/L (98-107); Globulin 3.1 g/dL (1.3-4.6); Glucose 201 mg/dL (65-115); Osmolality Calculated 291 mOsm/kg (285-295); Potassium 4.4 mmol/L (3.5-5.1); Sodium 131 mmol/L (136-145); Total Bilirubin 0.8 mg/dL (0.15-1.2)
[2022-09-13] MEDS: piperacillin-tazobactam 3.375 GM in sodium chloride 0.9% (plus) 50 ML IV ×3 (06:06→22:25)
[2022-09-13 06:18] LABS: Glucose Point of Care 198 mg/dL (70-110)
--- NOTE | 2022-09-13 06:38 | PM.PN ---
Subjective Subjective: Patient continues to hurt particularly in the epigastrium and central part of her abdomen and much tender over suprapubic area. Medications: Reviewed: Yes Vitals/I&O/Wt Last Vital Signs Temp 100 F H 09/13/22 03:44 Pulse 108 H 09/13/22 03:44 Resp 30 H 09/13/22 05:39 BP 151/69 09/13/22 03:44 Pulse Ox 93 09/13/22 03:44 O2 Del Method 09/13/22 03:44 O2 Flow Rate 3 09/13/22 03:44 09/12/22 09/12/22 09/13/22 14:59 22:59 06:59 Intake Total 50 / 50 1072.5 / 1122.5 1301.25 / 2423.75 Output Total 200 / 200 Balance 50 / 50 872.5 / 922.5 1301.25 / 2223.75 Weight last 48 hrs Weight 204 lb 4 oz Physical Exam Narrative: Patient is conscious alert oriented X3 No apparent distress BMI 36.2 Head and neck examination PERRLA no masses no cervical lymphadenopathy no jaundice Abdomen epigastric, periumbilical and suprapubic tenderness, obese , otherwise soft no organomegaly guarding or rigidity/no signs of peritonitis Urinary Catheter Management: Iraheta: Cath Placed During This Visit: yes Reason for Continuing Indwelling Catheter: Acute Urinary Retention or Obstruction Urinary Catheter Date of Insertion: 09/12/22 Urinary Catheter Time of Insertion: 21:00 Data : 09/13/22 04:38 09/13/22 04:38 Micro: Microbiology 09/12/22 04:50 Blood Culture - Preliminary Blood NEGATIVE TO DATE 09/12/22 04:53 Blood Culture - Preliminary Blood NEGATIVE TO DATE A&P Assessment and plan (1) Pancreatitis: I elected to repeat the ultrasound yesterday after conversation with Dr. Hendrix and there was no indication of presence of stones. Yet likely the patient has a polyp in her gallbladder which does not explain her pancreatitis. Also no evidence of cholecystitis. Based on those objective information I would not offer her at this point laparoscopic cholecystectomy. Yet the patient would benefit from that as an outpatient. Meanwhile conservative management for pancreatitis and rule out other potential etiologies Suprapubic tenderness concerning with potential UTI. Will defer further management to hospitalist's service. From surgical standpoint of Can continue to have clear liquid diet Follow on the trend of lipase enzyme Assurance and education All questions have been answered and all concerns have been addressed to patient's satisfaction. (2) Chronic back pain: Patient reports that she receives 15 mg of oxycodone every 4 hours as needed for chronic back pain Does not appear that the patient's pain control is adequate yet I will defer to hospitalist service for further evaluation with that regard to address her baseline I will give the patient one-time dose of 2 mg of morphine IV Assurance and education All questions have been answered and all concerns have been addressed to patient's satisfaction. Qualifiers: Back pain laterality: midline Back pain location: low back pain Sciatica presence: without sciatica Qualified Code(s): M54.5 - Low back pain; G89.29 - Other chronic pain Attestations Medical Necessity Statement*: Per admitting service Coding Level of Care Code Acute Seeing Eye Dog Trainer for [facility] Fwd Diagnoses Pancreatitis K85.90 Chronic back pain M54.5; G89.29 Back pain laterality: midline Back pain location: low back pain Sciatica presence: without sciatica
[2022-09-13] MEDS: morphine 4 mg/mL SDV 1 mL 2 MG IVP ×2 (06:54→16:31)
--- NOTE | 2022-09-13 07:37 | PC.NURSE ---
I reported the low 02 level to the nurse. 89%
[2022-09-13 07:44] LABS: Lipase 592 U/L (13-60)
--- NOTE | 2022-09-13 08:37 | P.CONIM_ITS ---
Providers/Reason For Consult Consulting Physician/Specialty*: ayana lu md / telenephrology Reason for Consult*: NOEMI Requesting Physician: Dr Junior Jordan Attending Physician: Junior Jordan MD Primary Care Provider: DOMINICK Vizcarra History of Present Illness History of Present Illness Elena Salinas is a 72 year old female h/o Type 2 DM, chronic back pain on opiates. obesity, HFpEF, and htn. Pt was admitted yesterday w/ abd pain and acute pancreatitis +/- cholecystitis. Pt has since developed oliguric NOEMI and renal is called to see the pt. Review of Systems Narrative: nausea, abd pain, anorexia, sob, weakness, orthopnea. rest of ROS is negative. Medications/Allergies Home Medications Medication Instructions Recorded Confirmed Last Taken Type diclofenac sodium 1 % topical gel 4 g topical QID PRN pain #300 grams 02/24/22 09/12/22 Unknown Rx levalbuterol tartrate 45 2 puff inhalation Q6H PRN 07/01/22 09/12/22 Unknown History mcg/actuation aerosol inhaler Shortness Of Breath oxycodone 10 mg tablet 10 mg PO QID PRN Pain 07/01/22 09/12/22 Unknown History oxycodone 15 mg tablet 15 mg PO Q4H PRN Pain 07/01/22 09/12/22 Unknown History syringe with needle 3 mL 25 gauge #1 ea 07/19/22 09/12/22 Unknown Rx x 1 (BD Luer-Beth Syringe) bumetanide 1 mg tablet 1 mg PO DAILY PRN Edema #30 tabs 08/30/22 09/12/22 Unknown Rx cyanocobalamin (vitamin B-12) 1,000 mcg SUBCUT Q30D #1 mL 08/30/22 09/12/22 Unknown Rx 1,000 mcg/mL injection solution ergocalciferol (vitamin D2) 1,250 See Rx Instructions .Route 08/30/22 09/12/22 Unknown Rx mcg (50,000 unit) capsule .COMPLEX #4 caps fenofibrate 160 mg tablet 160 mg PO DAILY #30 tabs 08/30/22 09/12/22 Unknown Rx fluticasone propionate 50 1 spray intranasal BID #16 grams 08/30/22 09/12/22 Unknown Rx mcg/actuation nasal spray,suspension (Flonase Allergy Relief) gabapentin 800 mg tablet 800 mg PO TID #90 tabs 08/30/22 09/12/22 Unknown Rx glipizide 10 mg tablet, extended 10 mg PO DAILY #30 tabs 08/30/22 09/12/22 Unknown Rx release 24 hr lisinopril 40 mg tablet 40 mg PO BID #60 tabs 08/30/22 09/12/22 Unknown Rx magnesium oxide 400 mg (241.3 mg 400 mg PO DAILY #30 tabs 08/30/22 09/12/22 Unknown Rx magnesium) tablet metoprolol tartrate 50 mg tablet 100 mg PO BID #120 tabs 08/30/22 09/12/22 Unknown Rx ondansetron HCl 4 mg tablet 4 mg PO Q8H PRN Nausea And 08/30/22 09/12/22 Unknown Rx Vomiting #30 tabs famotidine 20 mg tablet 20 mg PO 2XD 09/12/22 09/12/22 Unknown History metformin 1,000 mg tablet 1,000 mg PO 2XD 09/12/22 09/12/22 Unknown History omega 5-umh-apj-fish oil 300 1 cap PO DAILY 09/12/22 09/12/22 Unknown History mg-1,000 mg capsule (Fish Oil) simvastatin 40 mg tablet 40 mg PO DAILY 09/12/22 09/12/22 Unknown History Allergies Allergy/AdvReac Type Severity Reaction Status Date / Time No Known Allergies Allergy Verified 09/12/22 05:58 Current Medications Generic Name Dose Route Start Last Admin Trade Name Freq PRN Reason Stop Dose Admin Acetaminophen 650 mg 09/12/22 00:33 09/13/22 03:47 Acetaminophen 325 Mg Tablet PO 650 mg Q6H PRN Administration Mild/Mod Pain Or Temp >/= 101 Enoxaparin Sodium 40 mg 09/12/22 00:45 09/12/22 23:46 Enoxaparin 40 Mg/0.4 Ml Syringe SUBCUT 40 mg Q24H JOSH Administration Famotidine 20 mg 09/12/22 00:45 09/12/22 23:46 Famotidine 20 Mg/2 Ml Inj IVP 20 mg Q12H JOSH Administration Hydromorphone HCl 1 mg 09/12/22 08:48 09/13/22 05:39 Hydromorphone 1 Mg/Ml Inj 1 Ml IVP 1 mg Q4H PRN Administration pain Sodium Chloride 1,000 mls @ 75 mls/hr 09/12/22 00:45 09/13/22 04:40 Sodium Chloride 0.9% IV 75 mls/hr .[id number] JOSH Administration Piperacillin Sod/Tazobactam 50 mls @ 12.5 mls/hr 09/12/22 07:00 09/13/22 06:06 Sod 3.375 gm/ Sodium Chloride IV 12.5 mls/hr Q8H JOSH Administration Protocol As Directed Insulin Human Lispro 0 unit 09/12/22 08:00 09/12/22 20:50 Insulin Lispro 100 Unit/1 Ml SUBCUT 6 unit WM&BEDTIME JOSH Administration Protocol Lanolin 1 applic 09/12/22 23:30 09/12/22 23:55 Lanolin Oint 7 Gm TOPICAL 1 applic PRN PRN Administration DRYNESS Metoclopramide HCl 5 mg 09/12/22 10:16 09/12/22 21:49 Metoclopramide 5 Mg/Ml Sdv 2 Ml IVP 5 mg Q6H PRN Administration NAUSEA AND VOMITING PFSH Acute PFSH: Medical History (Updated 09/13/22 @ 08:44 by Jovanni Lu MD) Abnormal transaminases Acute cystitis Acute encephalopathy B12 deficiency Bunion of right foot Cholecystitis Cholelithiasis Chronic back pain Chronic osteoarthritis Dyslipidemia Encounter for counseling for care management of patient with chronic conditions and complex health needs using nurse-based model Essential (primary) hypertension Gastro-esophageal reflux disease without esophagitis Neuropathy Obesity, unspecified Seasonal allergies Type 2 diabetes mellitus Type 2 diabetes mellitus without complications Vitamin D deficiency Wound of right foot Surgical History Hx of knee surgery (~10/2000) left Family History Mother Cancer colon Father Cancer pancreatic Family/Other CAD (coronary artery disease) Social History Smoking and tobacco status: never smoked Second hand smoke exposure: No Alcohol intake: never Lives independently: Yes Household members: significant other Marital status: Life Partner Current occupational status: retired History of recent travel: No Current gender identity: Female Vitals/I&O/Wt Last Vital Signs Temp 98.8 F 09/13/22 07:37 Pulse 99 09/13/22 07:37 Resp 18 09/13/22 07:37 BP 164/74 09/13/22 07:37 Pulse Ox 89 L 09/13/22 07:37 O2 Del Method 09/13/22 07:37 O2 Flow Rate 3 09/13/22 03:44 09/12/22 09/13/22 09/13/22 22:59 06:59 14:59 Intake Total 1072.5 / 1122.5 1301.25 / 2423.75 Output Total 200 / 200 Balance 872.5 / 922.5 1301.25 / 2223.75 Weight last 48 hrs Weight 92.646 kg Physical Exam Narrative: obese female sitting up in bed, uncomfortable, SAOB on nc02 vs noted heent- nc/at, eomi, anicteric neck supple lungs crackles b/l heart tachycardic abd soft, tender, + bs ext 1+ edema neuro- a,a, o x 3 Urinary Catheter Management: Iraheta: Cath Placed During This Visit: yes Reason for Continuing Indwelling Catheter: Acute Urinary Retention or Obstruction Urinary Catheter Date of Insertion: 09/12/22 Urinary Catheter Time of Insertion: 21:00 Data : 09/13/22 04:38 09/13/22 04:38 Micro: Microbiology 09/12/22 04:50 Blood Culture - Preliminary Blood NEGATIVE TO DATE 09/12/22 04:53 Blood Culture - Preliminary Blood NEGATIVE TO DATE A&P Assessment and plan (1) NOEIM (acute kidney injury): 72 yr old female obesity, htn, dm here w/ pancreatitis/ cholecystitis 1. NOEMI- baseline cr 0.8 in 2021- cr socrates to 1.6 on aug 31. Admission cr on 09-11 was 1.3 mg/dl. Cr now 2.2 mg/dl s/p iv contrast -NOEMI- likely ATN, w/ CI- NOEMI. Pt was not eating for a couple of days and was on bumex, lisinopril, and metformin - u/a - has bacturia- no wbc -urine lytes not sent -check ck -renal us -no hydronephrosis on abd ct scan 2. hyponatremia- from noemi 3. mild AGMA from NOEMI. check ketones -lactate- was 2.2 even on metformin -d/c ns ivf 4.pancreatitis is improving 5. as sob- d/c ivf and start lasix seen and examined w/ RN- telehealth visit time spent 50 min Plan see above Consult Attestations Time Spent in Patient Care: Greater than 35 minutes (>than 50% of time spent in counselling and/or direct pt care on unit) . Coding Level of Care Code Acute [employer]man for Jorje Blackmon Diagnoses NOEMI (acute kidney injury) N17.9
--- NOTE | 2022-09-13 08:51 | US_ITS ---
WS: [id number] RENAL ULTRASOUND HISTORY: heidy COMPARISON: None available. TECHNIQUE: 2-D and color Doppler imaging of the kidney submitted. Right kidney: 11.1 cm x 5.3 cm x 5.4 cm. Normal echogenicity with no hydronephrosis or mass. Left kidney: 10.4 cm x 4.8 cm x 5.8 cm. Normal echogenicity with no hydronephrosis or mass. Aorta: Normal. Urinary Bladder: Not imaged. US/US renal BI* [id number] IMPRESSION: Normal renal ultrasound.
[2022-09-13 09:24] LABS: Creatine Phosphokinase 60 U/L (26-192); Thyroid Stimulating Hormone 1.03 uIU/mL (0.27-4.20); Uric Acid 6.5 mg/dL (2.4-5.7)
[2022-09-13 09:45] LABS: Ketone (Acetest) Serum Negative (Negative)
[2022-09-13 10:08] LABS: Hepatitis C Virus Antibody Non-Reactive (Nonreactive)
--- NOTE | 2022-09-13 10:18 | PC.CHAP ---
Pastoral Care Encounter/Spiritual Assessment Type of Contact [] Declined chucker visit [] Patient/Family/Request visit [] Outpatient visit [] Follow-up visit [] Physician referral [] Code/Alert [x] Routine visit [] Staff referral [] Actively dying [] Patient sleeping [] Family support [] [] Out of room [] Palliative care [] [] Receiving care in room [] Pre-surgical visit [] Trauma [] Long length of stay [] ICU visit [] Other: Relational/Emotional Strength [x] Patient feels connected with others/family/visitors/staff [] Distress [] Loneliness/isolation [] Abandonment Spirituality of Patient [x] Person of Laila [] Attends Rastafarian of their Laila [x] Believes in Prayer [] Reads Bible or Anabaptist materials [] There are Spiritual issues to be addressed [place] Machine Operator Interventions x] Prayer x[x] Active listening [] Non-anxious presence [] Spiritual/emotional support [] Crisis/trauma care [] Spiritual counseling [] Bereavement support [] Provided bereavement packet [] Provided Bible/devotional materials [] Provided toy/stuffed animal, coloring book to patient or family member [] Provided Communion [] Anointing/[place] [] Salvation [x] Completed spiritual assessment [] Other: Impact on Illness or Injury [] Angry [] Fearful [] Anxious [] Often cries [] Exhaustion [] Unable to work [] Unable to attend judaism [] Unable to walk/stand [] Unable to read [] Unable to drive [] Unable to eat/drink [] Unable to sleep [] Unable to be with family [] Patient intubated [] Other: Summary Time spent with patient 10 min
[2022-09-13] MEDS: FUROsemide 10 mg/mL SDV 10mL 60 MG IVP ×2 (10:35→20:41)
[2022-09-13] MEDS: oxyCODONE 5 mg IR Tab/Cap 15 MG PO ×3 (10:35→21:43)
[2022-09-13] MEDS: gabapentin 400 mg Capsule PO ×3 (10:35→20:37)
[2022-09-13 11:32] LABS: Glucose Point of Care 220 mg/dL (70-110)
--- NOTE | 2022-09-13 11:35 | PM.PN ---
Subjective Subjective: Patient was seen this morning, she continues to have severe pain, she tells me that at home Dr. Galarza has her on oxycodone 15 mg p.o. every 6 hours scheduled (she was on 30 mg which now is weaned down to 15), in addition she uses oxycodone 10 mg every 4 hours as needed for breakthrough pain and she uses it very regularly, for her chronic pain, she continues to have severe back breakthrough pain in the Bumex has not helped at all, the morphine that she took this morning did help and she seems like it helps more with her pain, she has not had a bowel movement, her abdominal pain persists, but somewhat improved, she is tolerating clear liquid diet well, but does have a poor appetite, no lightheadedness, dizziness, she is on 3 L, does not use oxygen at home Vitals/I&O/Wt Last Vital Signs Temp 98.8 F 09/13/22 07:37 Pulse 99 09/13/22 07:37 Resp 18 09/13/22 07:37 BP 164/74 09/13/22 07:37 Pulse Ox 89 L 09/13/22 07:37 O2 Del Method 09/13/22 07:37 O2 Flow Rate 3 09/13/22 03:44 09/12/22 09/13/22 09/13/22 22:59 06:59 14:59 Intake Total 1072.5 / 1122.5 1301.25 / 2423.75 Output Total 200 / 200 Balance 872.5 / 922.5 1301.25 / 2223.75 Weight last 48 hrs Weight 92.646 kg Physical Exam Const: COMMON NORMALS: no acute distress and patient oriented x3 Resp: COMMON NORMALS: normal respiratory effort, No retractions and No use of accessory muscles AUSCULTATION: crackles and wheezes Cardio: COMMON NORMALS: regular rate, regular rhythm, S1 normal heart sound present and S2 normal heart sound present RATE: regular rate RHYTHM: regular rhythm HEART SOUNDS: S1 normal heart sound present and S2 normal heart sound present Extremity: NARRATIVE EXTREMITY EXAM: 1+ pitting edema Neuro: COMMON NORMALS: patient oriented x3 Psych: COMMON NORMALS: mental status grossly normal Urinary Catheter Management: Iraheta: Cath Placed During This Visit: yes Reason for Continuing Indwelling Catheter: Acute Urinary Retention or Obstruction Urinary Catheter Date of Insertion: 09/12/22 Urinary Catheter Time of Insertion: 21:00 Data : 09/13/22 04:38 09/13/22 04:38 Micro: Microbiology 09/12/22 04:50 Blood Culture - Preliminary Blood NEGATIVE TO DATE 09/12/22 04:53 Blood Culture - Preliminary Blood NEGATIVE TO DATE A&P Assessment and plan (1) Pancreatitis: On clear liquids for now Stop fluids and has concerns for fluid overload Has been placed on Lasix by nephrology team Monitor closely her urine output, volume status, Continue home oxycodone 15 mg every 6 hours scheduled, with oxycodone 10 mg every 4 hours as needed this is her home medication We will add on morphine 2 mg every 8 hours as needed for breakthrough pain Zofran and Reglan for nausea vomiting General surgery consulted Check TG 163 and alcohol levels within normal limits. Denies any recent chanegs in her medications. It appears multiple medications were changed on her last visit in Jun 2022, however patient has not made these changes. (2) Cholecystitis: General surgery on consult Empiric piperacillin tazobactam (3) Essential (primary) hypertension: Blood pressure upon arrival to the emergency room 240/110 mmHg. She has received 2 doses of iv labetalol in [facility] ER following which her BP is improved at 134/70 at time of my assessment. (4) Type 2 diabetes mellitus without complications: Insulin sliding scale. Hold OHAs, Qualifiers: Diabetes mellitus halfway insulin use: without halfway use Qualified Code(s): E11.9 - Type 2 diabetes mellitus without complications Plan NOEMI creatinine 2.2, monitor possible third spacing from acute pancreatitis Fluid overload, 3 L oxygen requirements, 1+ pitting edema, receiving Lasix Chronic pain, continue home narcotics, monitor for respiratory depression Attestations Medical Necessity Statement*: Patient requires soft position for NOEMI, acute pancreatitis, intractable pain Coding Level of Care Code Acute Fraud Examiner for [facility] Diagnoses Pancreatitis K85.90 Cholecystitis K81.9 Essential (primary) hypertension I10 Type 2 diabetes mellitus without complications E11.9 Diabetes mellitus halfway insulin use: without governor assembler hydraulic use
--- NOTE | 2022-09-13 11:37 | XRR_ITS ---
PROCEDURE INFORMATION: Exam: XR Chest Exam date and time: 09/13/2022 11:46 AM Age: 72 years old Clinical indication: Shortness of breath; Patient HX: History--sob, abd. Pain TECHNIQUE: Imaging protocol: Radiologic exam of the chest. Views: 1 view. COMPARISON: CR (CHEST, ) 09/11/2022 9:14 PM FINDINGS: Lungs: Poor inspiration with elevation of the diaphragm. There is compressive atelectasis in the lung bases.. Pleural spaces: Unremarkable. No pleural effusion. No pneumothorax. Heart/Mediastinum: Unremarkable. No cardiomegaly. Bones/joints: Unremarkable. XR/XR chest 1V portable [id number] IMPRESSION: Poor inspiration with compressive atelectasis in the lung bases.
[2022-09-13] MEDS: famotidine 20 mg/2 mL INJ IVP ×2 (15:37→23:50)
[2022-09-13 17:58] LABS: Glucose Point of Care 236 mg/dL (70-110)
[2022-09-13 18:33] LABS: Urine Random Sodium 35 mmol/L
[2022-09-13 21:03] LABS: Glucose Point of Care 218 mg/dL (70-110)
[2022-09-13] MEDS: insulin lispro 100 unit/1 mL SUBCUT (21:45)
[2022-09-13] MEDS: enoxaparin 30 mg/0.3 mL Syringe SUBCUT (22:25)
[2022-09-14] VITALS (13 sets, daily range): BP systolic 133–160; BP diastolic 74–85; PULSE 70–123; RESP 12–24; TEMP 36.6–37.7; O2SAT 89–96
[2022-09-14 01:57] LABS: Basophils % 0.2 %; Eosinophils % 0.1 %; Hematocrit 42.6 % (37.0-47.0); Hemoglobin 14.1 g/dL (11.5-15.3); Lymphocytes % 9.3 %; Mean Corpuscular HGB Conc 33.1 g/dL (30.0-36.0); Mean Corpuscular Hemoglobin 30.2 pg (28.0-34.0); Mean Corpuscular Volume 91.2 fl (81-99); Mean Platelet Volume 10.4 fL (7.4-10.4); Monocytes # 1.7 10^3/uL (0.2-0.9); Monocytes % 7.8 %; Neutrophils # 17.82 10^3/uL (1.8-7.7); Neutrophils % 81.5 %; Nucleated Red Blood Cells % 0 %; Platelet Count 222 10^3/cmm (130-400); Red Blood Count 4.67 10^6/uL (4.1-5.3); Red Cell Distribution Width 13.8 % (12.1-15.1); White Blood Count 21.9 10^3/uL (4.0-10.0)
[2022-09-14] MEDS: oxyCODONE 5 mg IR Tab/Cap 10 MG PO (02:35)
[2022-09-14] MEDS: acetaminophen 325 mg Tablet 650 MG PO (02:35)
[2022-09-14] MEDS: metoclopramide 5 mg/mL SDV 2 mL IVP (02:36)
[2022-09-14 02:47] LABS: Potassium, Radom Urine 38 mmol/L; Urine Random Chloride 59 mmol/L; Urine Random Sodium 37 mmol/L
[2022-09-14 04:29] LABS: 25 Hydroxy Vitamin D 30 ng/mL (30-100); Alanine Aminotransferase 12 U/L (0-33); Albumin Level 3.2 g/dL (3.5-5.2); Alkaline Phosphatase 43 U/L (35-105); Amylase 104 U/L (28-100); Anion Gap 15.2 (5-19); Aspartate Amino Transferase 17 U/L (0-32); Blood Urea Nitrogen 40 mg/dL (8-23); Calcium 8.8 mg/dL (8.5-10.5); Carbon Dioxide 22 mmol/L (22-29); Chloride 96 mmol/L (98-107); Creatine Phosphokinase 45 U/L (26-192); Globulin 3.3 g/dL (1.3-4.6); Glucose 168 mg/dL (65-115); Lipase 80 U/L (13-60); Osmolality Calculated 284 mOsm/kg (285-295); Phosphorus 3.2 mg/dL (2.5-4.5); Potassium 3.2 mmol/L (3.5-5.1); Sodium 130 mmol/L (136-145); Total Bilirubin 0.8 mg/dL (0.15-1.2); Total Protein 6.5 g/dL (6.6-8.7)
[2022-09-14] MEDS: ondansetron 2 mg/ML SDV 2 mL 4 MG IVP ×2 (04:54→20:48)
[2022-09-14] MEDS: oxyCODONE 5 mg IR Tab/Cap 15 MG PO ×2 (05:12→09:40)
[2022-09-14] MEDS: piperacillin-tazobactam 3.375 GM in sodium chloride 0.9% (plus) 50 ML IV ×2 (06:18→14:56)
[2022-09-14 06:23] LABS: Glucose Point of Care 208 mg/dL (70-110)
--- NOTE | 2022-09-14 07:48 | PM.PN ---
Subjective Subjective: feeling better. dec abd tenderness. no sob or cp or adames. is eating, + uop and diarrhea Medications: Reviewed: Yes Medication Review Details: Current Medications Acetaminophen (Acetaminophen 325 Mg Tablet) 650 mg PO Q6H PRN PRN Reason: Mild/Mod Pain Or Temp >/= 101 Last Admin: 09/14/22 02:35 Dose: 650 mg Dextrose (Dextrose 50% Syringe 50 Ml) 25 ml IVP ONCE PRN; Protocol PRN Reason: hypoglycemia protocol Dextrose (Dextrose 50% Syringe 50 Ml) 50 ml IVP PRN PRN; Protocol PRN Reason: hypoglycemia protocol Enoxaparin Sodium (Enoxaparin 30 Mg/0.3 Ml Syringe) 30 mg SUBCUT Q24H JOSH Last Admin: 09/13/22 22:25 Dose: 30 mg Famotidine (Famotidine 20 Mg/2 Ml Inj) 20 mg IVP Q12H JOSH Last Admin: 09/13/22 23:50 Dose: 20 mg Furosemide (Furosemide 10 Mg/Ml Sdv 10ml) 40 mg IVP Q12H JOSH Gabapentin (Gabapentin 400 Mg Capsule) 400 mg PO TID [facility] Last Admin: 09/13/22 20:37 Dose: 400 mg Glucagon (Glucagon 1 Mg/Ml Inj 1 Ml) 1 mg IM ONCE PRN; Protocol PRN Reason: Adult Acute Hypoglycemia Prot. Dextrose (D5w) 500 mls @ 100 mls/hr IV ONCE PRN; Protocol PRN Reason: Adult Acute Hypoglycemia Prot Piperacillin Sod/Tazobactam (Sod 3.375 gm/ Sodium Chloride) 50 mls @ 12.5 mls/hr IV Q8H [facility]; Protocol Last Admin: 09/14/22 06:18 Dose: 12.5 mls/hr Insulin Human Lispro (Insulin Lispro 100 Unit/1 Ml) 0 unit SUBCUT WM&BEDTIME JOSH; Protocol Last Admin: 09/13/22 21:45 Dose: 6 unit Lanolin (Lanolin Oint 7 Gm) 1 applic TOPICAL PRN PRN PRN Reason: DRYNESS Last Admin: 09/12/22 23:55 Dose: 1 applic Metoclopramide HCl (Metoclopramide 5 Mg/Ml Sdv 2 Ml) 5 mg IVP Q6H PRN PRN Reason: NAUSEA AND VOMITING Last Admin: 09/14/22 02:36 Dose: 5 mg Morphine Sulfate (Morphine 4 Mg/Ml Sdv 1 Ml) 2 mg IVP Q8H PRN PRN Reason: break through Severe Pain Last Admin: 09/13/22 16:31 Dose: 2 mg Naloxone HCl (Naloxone 0.4 Mg/Ml Sdv) 0.1 mg IVP Q2M PRN PRN Reason: RESPIRATORY RATE < 8/MIN Ondansetron HCl (Ondansetron 2 Mg/Ml Sdv 2 Ml) 4 mg IVP Q8H PRN PRN Reason: vomiting, or N/V if npo Last Admin: 09/14/22 04:54 Dose: 4 mg Oxycodone HCl (Oxycodone 5 Mg Ir Tab/Cap) 15 mg PO Q6H JOSH Last Admin: 09/14/22 05:12 Dose: 15 mg Oxycodone HCl (Oxycodone 5 Mg Ir Tab/Cap) 10 mg PO Q4H PRN PRN Reason: Pain Last Admin: 09/14/22 02:35 Dose: 10 mg Potassium Chloride (Potassium Chloride Er 20 Meq Tablet) 40 meq PO ONCE ONE Stop: 09/14/22 07:43 Vitals/I&O/Wt Last Vital Signs Temp 97.9 F 09/14/22 07:42 Pulse 93 09/14/22 07:42 Resp 18 09/14/22 07:42 BP 135/74 09/14/22 07:42 Pulse Ox 94 09/14/22 07:42 O2 Del Method 09/14/22 07:42 O2 Flow Rate 2 09/14/22 07:42 09/13/22 09/14/22 09/14/22 22:59 06:59 14:59 Intake Total 1290 / 1340 290 / 1630 Output Total 450 / 2250 1200 / 3450 Balance 840 / -910 -910 / -1820 Physical Exam Narrative: obese female in bed,comfortable,less SOB on nc02 vs noted heent- nc/at, eomi, anicteric neck supple lungs dec crackles b/l heart RRR, abd soft, less tender, + bs ext dec b/l leg edema neuro- a,a, o x 3 Urinary Catheter Management: Iraheta: Cath Placed During This Visit: yes Reason for Continuing Indwelling Catheter: Acute Urinary Retention or Obstruction Urinary Catheter Date of Insertion: 09/12/22 Urinary Catheter Time of Insertion: 21:00 Data : 09/14/22 01:33 09/14/22 01:33 Micro: Microbiology 09/12/22 04:50 Blood Culture - Preliminary Blood NEGATIVE TO DATE 09/12/22 04:53 Blood Culture - Preliminary Blood NEGATIVE TO DATE A&P Assessment and plan (1) NOEMI (acute kidney injury): 72 yr old female obesity, htn, dm here w/ pancreatitis/ cholecystitis 1. NOEMI- baseline cr 0.8 in 2021- cr socrates to 1.6 on aug 31. Admission cr on 09-11 was 1.3 mg/dl. Cr now 2.2 mg/dl s/p iv contrast -NOEMI- likely ATN, w/ CI- NOEMI. Pt was not eating for a couple of days and was on bumex, lisinopril, and metformin - u/a - has bacturia- no wbc -cr improving -normal ck -renal us -no hydronephrosis on abd ct scan 2. hyponatremia- from noemi - monitor w/ renal recovery and on lsix 3. mild AGMA from NOEMI. check ketones -lactate- was 2.2 even on metformin -bicarb is improving 4.pancreatitis is improving 5. improved resp status. can decrease lasix 6. wbc improving 7. hypokalemia from lasix- dec lasix dose and replete k seen and examined w/ RN- telehealth visit time spent 30 min Plan see above Attestations Medical Necessity Statement*: noemi improving. sob Time Spent in Patient Care: 16 - 35 minutes (>than 50% of time spent in counselling and/or direct pt care on unit). Coding Level of Care Code Acute Supervisor Inspection Department for Jorje Blackmon Diagnoses NOEMI (acute kidney injury) N17.9
[2022-09-14 08:35] LABS: Glucose Point of Care 222 mg/dL (70-110)
[2022-09-14] MEDS: potassium chloride ER 20 mEq Tablet 40 MEQ PO ×3 (09:04→14:55)
[2022-09-14] MEDS: gabapentin 400 mg Capsule PO (09:05)
[2022-09-14] MEDS: FUROsemide 10 mg/mL SDV 4mL 40 MG IVP (09:05)
[2022-09-14] MEDS: insulin lispro 100 unit/1 mL SUBCUT ×4 (09:06→20:49)
--- NOTE | 2022-09-14 10:25 | PM.PN ---
Subjective Subjective: Patient was seen this morning, she still complains of poor appetite, no shortness of breath, no wheezing, abdominal pain has improved Vitals/I&O/Wt Last Vital Signs Temp 97.9 F 09/14/22 07:42 Pulse 93 09/14/22 07:42 Resp 14 09/14/22 09:40 BP 135/74 09/14/22 07:42 Pulse Ox 94 09/14/22 07:42 O2 Del Method 09/14/22 07:42 O2 Flow Rate 3 09/14/22 08:00 09/13/22 09/14/22 09/14/22 22:59 06:59 14:59 Intake Total 1290 / 1340 290 / 1630 Output Total 450 / 2250 1200 / 3450 250 / 250 Balance 840 / -910 -910 / -1820 -250 / -250 Physical Exam Const: COMMON NORMALS: no acute distress and patient oriented x3 Resp: COMMON NORMALS: normal respiratory effort, No retractions, No use of accessory muscles and clear to auscultation bilaterally AUSCULTATION: clear to auscultation bilaterally Cardio: COMMON NORMALS: regular rate, regular rhythm, S1 normal heart sound present and S2 normal heart sound present RATE: regular rate RHYTHM: regular rhythm HEART SOUNDS: S1 normal heart sound present and S2 normal heart sound present GI: COMMON NORMALS: Normal to inspection, nondistended, normoactive bowel sounds present and non-tender Extremity: COMMON NORMALS: no pedal edema Neuro: COMMON NORMALS: patient oriented x3 Psych: COMMON NORMALS: mental status grossly normal Urinary Catheter Management: Iraheta: Cath Placed During This Visit: yes Reason for Continuing Indwelling Catheter: Other Urinary Catheter Date of Insertion: 09/12/22 Urinary Catheter Time of Insertion: 21:00 Data : 09/14/22 01:33 09/14/22 01:33 Micro: Microbiology 09/12/22 19:30 Urine Culture - Final Urine,Clean Catch A&P Assessment and plan (1) Pancreatitis: On clear liquids for now, advance diet as tolerated encourage ambulation Continue home oxycodone 15 mg every 6 hours scheduled, with oxycodone 10 mg every 4 hours as needed this is her home medication We will add on morphine 2 mg every 8 hours as needed for breakthrough pain Zofran and Reglan for nausea vomiting General surgery consulted Check TG 163 and alcohol levels within normal limits. Denies any recent chanegs in her medications. It appears multiple medications were changed on her last visit in Jun 2022, however patient has not made these changes. (2) Cholecystitis: General surgery on consult Empiric piperacillin tazobactam (3) Essential (primary) hypertension: Blood pressure upon arrival to the emergency room 240/110 mmHg. She has received 2 doses of iv labetalol in [facility] ER following which her BP is improved at 134/70 at time of my assessment. (4) Type 2 diabetes mellitus without complications: Insulin sliding scale. Hold OHAs, Qualifiers: Diabetes mellitus termite helper insulin use: without termite helper use Qualified Code(s): E11.9 - Type 2 diabetes mellitus without complications Plan NOEMI creatinine 1.8 monitor possible third spacing from acute pancreatitis Fluid overload, requiring 2 L, continue Lasix therapy Hyponatremia, continue to monitor Chronic pain, continue home narcotics, monitor for respiratory depression Attestations Medical Necessity Statement*: Patient requires hospitalization for acute hyponatremia, NOEMI, pancreatitis Coding Level of Care Code Acute Herb Grower for [facility] Diagnoses Pancreatitis K85.90 Cholecystitis K81.9 Essential (primary) hypertension I10 Type 2 diabetes mellitus without complications E11.9 Diabetes mellitus termite helper insulin use: without intermediate use
[2022-09-14] MEDS: morphine 4 mg/mL SDV 1 mL 2 MG IVP (10:31)
--- NOTE | 2022-09-14 10:44 | ECG_ITS ---
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 Measurements Intervals [place] Rate: 118 P: UT: QRS: -24 QRSD: 96 T: 73 QT: 309 QTc: 434 Interpretive Statements ATRIAL FIBRILLATION WITH RAPID VENTRICULAR RESPONSE BORDERLINE LEFT AXIS DEVIATION [QRS AXIS < -20] VOLTAGE CRITERIA FOR LVH [MEETS CRITERIA IN ONE OF: R(aVL), S(V1), R(V5), R(V5/V6)+S(V1)] NONSPECIFIC ST & T-WAVE ABNORMALITY Compared to ECG 09/12/2022 04:10:33 T-wave abnormality now present Sinus rhythm no longer present Electronically Signed On 09-14-2022 12:08:20 CDT by Jane Prather M.D. [id number]
--- NOTE | 2022-09-14 10:44 | XRR_ITS ---
PROCEDURE INFORMATION: Exam: XR Chest Exam date and time: 09/14/2022 11:11 AM Age: 72 years old Clinical indication: Pain; Shortness of breath; Other: Abdominal; Additional info: SOB TECHNIQUE: Imaging protocol: Radiologic exam of the chest. Views: 1 view. COMPARISON: CR XR chest 1V portable [id number] 09/13/2022 11:46 AM FINDINGS: Lungs: Poor inspiration with elevation of the diaphragm. No consolidation. Pleural spaces: Unremarkable. No pleural effusion. No pneumothorax. Heart/Mediastinum: Unremarkable. No cardiomegaly. Bones/joints: Unremarkable. XR/XR chest 1V portable [id number] IMPRESSION: Poor inspiration. No acute abnormality.
[2022-09-14] MEDS: metoprolol tartrate 50 mg Tablet PO (10:54)
--- NOTE | 2022-09-14 11:03 | USCV_ITS ---
Elena Salinas Age: 72 Gender: F : 1950 Exam Date: 09/14/2022 16:11 Ordering Phys: Junior Jordan MD Technologist: LYNDA [place] [facility] [place] Afib BP: 135 / 84 HR: 92 Rhythm: Other Technical Quality: Adequate MEASUREMENTS (Male / Female) Normal Values 2D ECHO LV Diastolic Diameter PLAX 5.1 cm 4.2 - 5.9 / 3.9 - 5.3 cm LV Systolic Diameter PLAX 3.2 cm IVS Diastolic Thickness 0.8 cm 0.6 - 1.0 / 0.6 - 0.9 cm IVS Systolic Thickness 1.2 cm LVPW Diastolic Thickness 1.2 cm 0.6 - 1.0 / 0.6 - 0.9 cm LVPW Systolic Thickness 1.7 cm LVOT Diameter 2.0 cm LV Ejection Fraction 2D Teich 67.4 % LV Ejection Fraction MOD 2C 59.9 % LV Ejection Fraction 2C AL 62.8 % LA Diameter 3.9 cm LA Width 3.2 cm LA Height 5.5 cm RA Width 3.1 cm RA Height 4.6 cm Aorta at Sinotubular Diameter 2.4 cm IVC Diameter 2.0 cm M-MODE Aortic Annulus Diameter 2.8 cm LA Ao Ratio MM 1.2 MV E Point Septal Separation 0.6 cm DOPPLER Right Atrial Pressure 3.0 mmHg FINDINGS Left Ventricle This is a two-dimensional examination only. No M-mode or Doppler examination was performed. There is mild left ventricular hypertrophy with normal ventricular size. There are no obvious wall motion disturbances. The overall ejection fraction is probably 60%. The rhythm is a rapid narrow complex tachycardia probably atrial fibrillation, which decreases the sensitivity of the examination. Diastolic function is not determined. Right Ventricle Normal right ventricular size and systolic function. Right Atrium Mildly increased right atrial size. Left Atrium Mildly increased left atrial size. Mitral Valve Mitral valve not well visualized. Aortic Valve Aortic valve not well visualized. Tricuspid Valve Tricuspid valve not well visualized. Pulmonic Valve Pulmonic valve not well visualized. Pericardium There is a small pericardial effusion which is hemodynamically insignificant. There is also a left-sided pleural effusion. Aorta Aorta not well visualized. IVC Inferior vena cava not visualized. CONCLUSIONS This is a two-dimensional examination only. No M-mode or Doppler examination was performed. There is mild left ventricular hypertrophy with normal ventricular size. There are no obvious wall motion disturbances. The overall ejection fraction is probably 60%. The rhythm is a rapid narrow complex tachycardia probably atrial fibrillation, which decreases the sensitivity of the examination. Diastolic function is not determined. Mildly increased right atrial size. Mildly increased left atrial size. There is a small pericardial effusion which is hemodynamically insignificant. There is also a left-sided pleural effusion. The previous echo was done on July 01 of this year. There has been no change. Dr. Bobby Whiteside MD (Electronically Signed) Final Date: 15 September 2022 08:10 S
[2022-09-14] MEDS: heparin 5,000 unit/mL INJ 1 mL IV ×2 (11:26→17:47)
[2022-09-14] MEDS: heparin drip 25,000 UNIT/500 ML PREMIX 21 UNIT IV (11:27)
[2022-09-14] MEDS: metoprolol tartrate 1 mg/1 mL SDV 5 mL 5 MG IVP (11:28)
[2022-09-14 11:47] LABS: Glucose Point of Care 213 mg/dL (70-110)
[2022-09-14 11:56] LABS: Platelet Count 241 10^3/cmm (130-400)
[2022-09-14 12:02] LABS: Anion Gap 18.5 (5-19); Carbon Dioxide 24 mmol/L (22-29); Chloride 92 mmol/L (98-107); Glucose 191 mg/dL (65-115); Potassium 3.5 mmol/L (3.5-5.1); Sodium 131 mmol/L (136-145)
[2022-09-14 12:05] LABS: Troponin(5th) Baseline 39 ng/L (0-10)
[2022-09-14 12:30] LABS: Blood Urea Nitrogen 35 mg/dL (8-23); Calcium 9.1 mg/dL (8.5-10.5); NT Pro B Type Natriuretic Pept 941 pg/mL (0-125); Osmolality Calculated 285 mOsm/kg (285-295); Thyroid Stimulating Hormone 1.73 uIU/mL (0.27-4.20)
[2022-09-14 12:40] LABS: Glucose Point of Care 193 mg/dL (70-110)
[2022-09-14] MEDS: famotidine 20 mg/2 mL INJ IVP (13:22)
--- NOTE | 2022-09-14 13:36 | ECG_ITS ---
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 Measurements Intervals [place] Rate: 74 P: [place]: QRS: -30 QRSD: 90 T: 61 QT: 386 QTc: 429 Interpretive Statements ATRIAL FLUTTER LEFT VENTRICULAR HYPERTROPHY AND ST-T CHANGE POSSIBLE ANTERIOR MYOCARDIAL INFARCTION , PROBABLY OLD Compared to ECG 09/14/2022 10:34:11 ST (T wave) deviation now present Myocardial infarct finding now present Atrial fibrillation no longer present T-wave abnormality no longer present Electronically Signed On 09-14-2022 16:26:47 CDT by Jane Prather M.D. [id number]
[2022-09-14 13:50] LABS: Troponin 5 2HR 43.59 ng/L (0-10)
[2022-09-14 13:51] LABS: Troponin 5 2HR Delta 4.59 ABS# (0-10)
--- NOTE | 2022-09-14 14:07 | USCV_ITS ---
Elena Salinas Age: 72 Gender: F : 1950 Exam Date: 09/14/2022 15:38 Ordering Phys: Junior Jordan MD Technologist: Magno Hassan Exam Location: [facility] [place] Indication: DVT PROCEDURES: Venous duplex imaging was performed in bilateral lower extremities. The following venous structures were evaluated: common femoral vein, profunda vein, proximal portion of the greater saphenous vein, superficial femoral vein, and the popliteal vein. In addition, the posterior tibial and peroneal trunk were evaluated. Serial compression, augmentation maneuvers, and spectral Doppler flow evaluation were performed. FINDINGS: Normal 2-D Doppler and augmentation and compressibility throughout the lower extremity venous structures. Additional imaging through the proximal calf veins also reveals no thrombus. Limited evaluation of the greater saphenous vein is patent with no thrombus.. CONCLUSIONS No evidence of right lower extremity DVT. No evidence of left lower extremity DVT. Alden Deutsch MD (Electronically Signed) Final Date: 15 September 2022 16:36 S
--- NOTE | 2022-09-14 14:41 | CTR_ITS ---
PROCEDURE INFORMATION: Exam: CT Abdomen And Pelvis Without Contrast Exam date and time: 09/14/2022 3:11 PM Age: 72 years old Clinical indication: Abdominal pain; Acute; Additional info: Abominal pain, RT upper TECHNIQUE: Imaging protocol: Computed tomography of the abdomen and pelvis without contrast. Radiation optimization: All CT scans at this facility use at least one of these dose optimization techniques: automated exposure control; mA and/or kV adjustment per patient size (includes targeted exams where dose is matched to clinical indication); or iterative reconstruction. COMPARISON: CT abdomen pelvis w con* [id number] 09/11/2022 10:15 PM RADIATION DOSE METRICS: Total DLP (mGy-cm): 1257.6 FINDINGS: Lungs: Bibasilar airspace consolidations in the posterior lung bases which may represent atelectasis versus superimposed pneumonia. Clinical correlation and follow-up should be obtained. Pleural spaces: Trace bilateral pleural effusions. Heart: Normal heart size with no obvious coronary calcification. Liver: Normal liver size without cirrhosis. Probable mild steatosis. Gallbladder and bile ducts: Gallbladder is somewhat distended which may be related to prolonged fasting versus cholestasis. Hyperdense gallbladder content suggesting proteinaceous material/sludge and probable tiny calculi. No obvious imaging signs of acute cholecystitis or bile duct dilatation. Clinical correlation should be obtained. Sonographic follow-up may also be considered if clinically indicated. Pancreas: Diffuse peripancreatic fat stranding and trace non loculated regional fluid suggestive of acute pancreatitis. Pancreatic necrosis can not be assessed without IV contrast. No large drainable regional fluid collection or pseudocyst formation. No obvious pancreatic ductal dilatation. Spleen: Normal spleen size with calcified splenic granulomas. Adrenal glands: Normal. No mass. Kidneys and ureters: No hydronephrosis or large regional collection. Stomach and bowel: Small to moderate colonic stool burden. Colonic diverticulosis. Appendix: No evidence of appendicitis. Intraperitoneal space: Unremarkable. No free air. No significant fluid collection. Vasculature: [id number] dilatation of main pulmonary artery measuring 3.8 cm, unchanged. Clinical correlation for pulmonary hypertension should be obtained. No aortic aneurysm. Lymph nodes: Nonenlarged mediastinal hilar lymph nodes consistent with chronic granulomatous disease. No enlarged abdominopelvic adenopathy otherwise. Urinary bladder: Unremarkable as visualized. Reproductive: Unremarkable as visualized. Bones/joints: Multilevel vertebral disc degeneration and endplate osteophytes. No acute osseous findings otherwise. Soft tissues: Images are somewhat degraded due to external streak artifacts arising from patient's arm(s). CT/CT abdomen pelvis wo con [id number] IMPRESSION: 1. Limited exam due to artifacts and lack of IV contrast. Findings suspicious for acute pancreatitis. No large regional collection/pseudocyst formation or biliary dilatation. Distended gallbladder with probable sludge and small calculi as described above. 2. Colonic diverticulosis and low-moderate stool burden. 3. Probable mild hepatic steatosis. 4. Abnormal lower thoracic findings. See discussion above.
--- NOTE | 2022-09-14 14:41 | CT_ITS ---
WS: [id number] CT HEAD TECHNIQUE: Noncontrast CT of the head obtained from the skullbase to the vertex. CLINICAL INFORMATION: confusion COMPARISON: CT June 30, 2022 DLP: 1125.[address] scans at [facility] use at least one of these dose optimization techniques: automated e xposure control; mA and/or kV adjustment per patient size (includes targeted exams where dose is matc hed to clinical indication); or iterative reconstruction. FINDINGS: No evidence of intracranial hemorrhage or mass effect. Ventricular system and basal cisterns are frias nt. Mild small vessel changes with mild parenchymal volume loss. No extra-axial fluid collections. No evidence of mass or mass effect. Paranasal sinuses and mastoid air cells are well aerated. .Normal visualized soft tissues. CT/CT head wo con* [id number] IMPRESSION: 1. No evidence of intracranial hemorrhage or mass effect. 2. Mild small vessel changes with mild parenchymal volume loss. 3. No acute intracranial findings.
[2022-09-14] MEDS: FUROsemide 10 mg/mL SDV 2mL 20 MG IVP (14:53)
[2022-09-14 14:57] LABS: ABG PCO2 45.8 mmHg (35-45); ABG PH Result 7.42 (7.35-7.45); Alveolar-Arterial Oxygen Gradi 17.6 mmHg (5-10); Arterial Blood Gas Hematocrit 46.8 % (37-47); Base Excess ABG 3.9 mmol/L (-2.0-2.0); Blood Gas Operator Identificat AMH; Blood Gas Sample Site Brachial, right; Blood Gas Sample Type Arterial; Carboxyhemoglobin 0.5 %THgb (0.4-20.1); HCO3 ABG 29.3 mmol/L (22-26); HGB O2 Sat 92.2 % (95-100); Ionized Calcium Level - ABG 1.2 mmol/L (1.1-1.4); Methemoglobin 0.8 % (0.4-1.5); Oxygen Device NC; Oxygen Saturation ABG 93.3; PO2 ABG 66.7 mmHg (80.0-100.0); Potassium Level - ABG 3.9 mmol/L (3.5-5.0); Total Hemoglobin 15.3 g/dL (12-16)
--- NOTE | 2022-09-14 16:09 | PC.NURSE ---
Per Dr. Jordan hold morphine and oxycodone until mentation has improved.
--- NOTE | 2022-09-14 16:44 | ECG_ITS ---
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 Measurements Intervals [place] Rate: 112 P: SC: QRS: -20 QRSD: 92 T: 76 QT: 314 QTc: 430 Interpretive Statements ATRIAL FLUTTER WITH RAPID VENTRICULAR RESPONSE VOLTAGE CRITERIA FOR LVH POSSIBLE ANTERIOR MYOCARDIAL INFARCTION , PROBABLY OLD Compared to ECG 09/14/2022 13:36:26 ST (T wave) deviation no longer present Myocardial infarct finding still present Electronically Signed On 09-14-2022 17:23:19 CDT by Jane Prather M.D. [id number]
[2022-09-14 16:50] LABS: Glucose Point of Care 175 mg/dL (70-110)
[2022-09-14 17:25] LABS: Partial Thromboplastin Time 47.2 SECONDS (23.9-36.7)
[2022-09-14] MEDS: metoprolol tartrate 50 mg Tablet 100 MG PO (17:44)
[2022-09-14 18:54] LABS: Troponin 5 6HR 46.35 ng/L (0-10); Troponin 5 6HR Delta 7.35 ng/L (0-12)
[2022-09-14 20:07] LABS: Glucose Point of Care 156 mg/dL (70-110)
[2022-09-14 23:23] LABS: Partial Thromboplastin Time 35.5 SECONDS (23.9-36.7)
[2022-09-15] VITALS (14 sets, daily range): BP systolic 119–162; BP diastolic 58–81; PULSE 60–99; RESP 14–22; TEMP 36.6–37.7; O2SAT 90–98
[2022-09-15] MEDS: heparin 5,000 unit/mL INJ 1 mL IV ×2 (00:07→06:18)
[2022-09-15] MEDS: heparin drip 25,000 UNIT/500 ML PREMIX 27 UNIT IV (00:08)
[2022-09-15] MEDS: piperacillin-tazobactam 3.375 GM in sodium chloride 0.9% (plus) 50 ML IV ×3 (00:28→16:09)
[2022-09-15] MEDS: oxyCODONE 5 mg IR Tab/Cap 15 MG PO ×4 (00:29→22:20)
[2022-09-15] MEDS: metoclopramide 5 mg/mL SDV 2 mL IVP (00:30)
[2022-09-15] MEDS: famotidine 20 mg/2 mL INJ IVP ×2 (00:32→16:08)
--- NOTE | 2022-09-15 01:57 | PC.NURSE ---
On my rounding I talked with the patient and accessed for pain. Patient stated no pain at all anywhere. Non labored breathing noted at this time.
[2022-09-15 05:38] LABS: Basophils # 0.1 10^3/uL (0.0-0.1); Basophils % 0.3 %; Eosinophils # 0.2 10^3/uL (0.0-0.8); Eosinophils % 0.9 %; Hemoglobin 14.5 g/dL (11.5-15.3); Lymphocytes # 2.3 10^3/uL (0.8-4.8); Mean Corpuscular Hemoglobin 29.8 pg (28.0-34.0); Mean Corpuscular Volume 90.5 fl (81-99); Mean Platelet Volume 10.4 fL (7.4-10.4); Monocytes # 1.4 10^3/uL (0.2-0.9); Monocytes % 7.8 %; Neutrophils # 13.88 10^3/uL (1.8-7.7); Neutrophils % 77.2 %; Nucleated Red Blood Cells % 0 %; Platelet Count 256 10^3/cmm (130-400); Red Blood Count 4.86 10^6/uL (4.1-5.3); Red Cell Distribution Width 13.5 % (12.1-15.1)
[2022-09-15 05:48] LABS: Partial Thromboplastin Time 52.1 SECONDS (23.9-36.7)
[2022-09-15 06:01] LABS: NT Pro B Type Natriuretic Pept 3015 pg/mL (0-125); Procalcitonin 0.95 ng/mL (0-0.5)
[2022-09-15 06:08] LABS: Glucose Point of Care 186 mg/dL (70-110)
[2022-09-15 06:13] LABS: Alanine Aminotransferase 11 U/L (0-33); Albumin Level 3.1 g/dL (3.5-5.2); Alkaline Phosphatase 50 U/L (35-105); Anion Gap 19.3 (5-19); Aspartate Amino Transferase 13 U/L (0-32); Blood Urea Nitrogen 35 mg/dL (8-23); Calcium 9.1 mg/dL (8.5-10.5); Carbon Dioxide 23 mmol/L (22-29); Chloride 92 mmol/L (98-107); Globulin 3.8 g/dL (1.3-4.6); Glucose 188 mg/dL (65-115); Osmolality Calculated 283 mOsm/kg (285-295); Phosphorus 2.2 mg/dL (2.5-4.5); Potassium 4.3 mmol/L (3.5-5.1); Sodium 130 mmol/L (136-145); Total Bilirubin 0.6 mg/dL (0.15-1.2); Total Protein 6.9 g/dL (6.6-8.7)
[2022-09-15] MEDS: metoprolol tartrate 50 mg Tablet 100 MG PO ×2 (06:17→16:20)
[2022-09-15] MEDS: heparin drip 25,000 UNIT/500 ML PREMIX 29 UNIT IV (06:19)
[2022-09-15] MEDS: oxyCODONE 5 mg IR Tab/Cap 10 MG PO (06:24)
[2022-09-15 06:25] LABS: C Reactive Protein 395.5 mg/L (0.0-4.9)
[2022-09-15] MEDS: ondansetron 2 mg/ML SDV 2 mL 4 MG IVP (08:31)
--- NOTE | 2022-09-15 08:56 | P.PN_ITS ---
Subjective Subjective: feels better. is drinking fluids. no n/v/f/c/adames/d/leg pains. she developed a fib overnight and has converted back to NSR Medications: Reviewed: Yes Medication Review Details: Current Medications Acetaminophen (Acetaminophen 325 Mg Tablet) 650 mg PO Q6H PRN PRN Reason: Mild/Mod Pain Or Temp >/= 101 Last Admin: 09/14/22 02:35 Dose: 650 mg Albuterol Sulfate (Albuterol 2.5 Mg/3 Ml Neb) 2.5 mg INHALATION Q4H.RESPIRATORY PRN PRN Reason: SHORTNESS OF BREATH Dextrose (Dextrose 50% Syringe 50 Ml) 25 ml IVP ONCE PRN; Protocol PRN Reason: hypoglycemia protocol Dextrose (Dextrose 50% Syringe 50 Ml) 50 ml IVP PRN PRN; Protocol PRN Reason: hypoglycemia protocol Enoxaparin Sodium (Enoxaparin 100 Mg/Ml Syringe) 90 mg 1 mg/kg (90 mg) SUBCUT Q12H JOSH Famotidine (Famotidine 20 Mg/2 Ml Inj) 20 mg IVP Q12H JOSH Last Admin: 09/15/22 00:32 Dose: 20 mg Furosemide (Furosemide 10 Mg/Ml Sdv 4ml) 40 mg IVP DAILY JOSH Last Admin: 09/14/22 09:05 Dose: 40 mg Gabapentin (Gabapentin 400 Mg Capsule) 400 mg PO TID JOSH Last Admin: 09/14/22 21:29 Dose: Not Given Glucagon (Glucagon 1 Mg/Ml Inj 1 Ml) 1 mg IM ONCE PRN; Protocol PRN Reason: Adult Acute Hypoglycemia Prot. Dextrose (D5w) 500 mls @ 100 mls/hr IV ONCE PRN; Protocol PRN Reason: Adult Acute Hypoglycemia Prot Piperacillin Sod/Tazobactam (Sod 3.375 gm/ Sodium Chloride) 50 mls @ 12.5 mls/hr IV Q8H JOSH; Protocol Last Infusion: 09/15/22 04:28 Dose: Infused Insulin Human Lispro (Insulin Lispro 100 Unit/1 Ml) 0 unit SUBCUT WM&BEDTIME JOSH; Protocol Last Admin: 09/14/22 20:49 Dose: 4 unit Lanolin (Lanolin Oint 7 Gm) 1 applic TOPICAL PRN PRN PRN Reason: DRYNESS Last Admin: 09/12/22 23:55 Dose: 1 applic Metoclopramide HCl (Metoclopramide 5 Mg/Ml Sdv 2 Ml) 5 mg IVP Q6H PRN PRN Reason: NAUSEA AND VOMITING Last Admin: 09/15/22 00:30 Dose: 5 mg Metoprolol Tartrate (Metoprolol Tartrate 50 Mg Tablet) 100 mg PO Q12H [facility] Last Admin: 09/15/22 06:17 Dose: 100 mg Morphine Sulfate (Morphine 4 Mg/Ml Sdv 1 Ml) 2 mg IVP Q8H PRN PRN Reason: break through Severe Pain Naloxone HCl (Naloxone 0.4 Mg/Ml Sdv) 0.1 mg IVP Q2M PRN PRN Reason: RESPIRATORY RATE < 8/MIN Ondansetron HCl (Ondansetron 2 Mg/Ml Sdv 2 Ml) 4 mg IVP Q8H PRN PRN Reason: vomiting, or N/V if npo Last Admin: 09/15/22 08:31 Dose: 4 mg Oxycodone HCl (Oxycodone 5 Mg Ir Tab/Cap) 15 mg PO Q6H [facility] Last Admin: 09/15/22 04:12 Dose: Not Given Oxycodone HCl (Oxycodone 5 Mg Ir Tab/Cap) 10 mg PO Q4H PRN PRN Reason: Pain Last Admin: 09/15/22 06:24 Dose: 10 mg Vitals/I&O/Wt Last Vital Signs Temp 98.0 F 09/15/22 07:40 Pulse 69 09/15/22 08:35 Resp 20 H 09/15/22 08:35 BP 162/70 09/15/22 07:40 Pulse Ox 96 09/15/22 08:35 O2 Del Method 09/15/22 08:35 O2 Flow Rate 2 09/15/22 08:35 09/14/22 09/15/22 09/15/22 22:59 06:59 14:59 Intake Total 183.35 / 353.35 722.617 / 1075.967 Output Total 900 / 2700 350 / 3050 Balance -716.65 / -2346.65 372.617 / -1974.033 Physical Exam Narrative: obese female in bed,comfortable, NARD on nc02 vs noted heent- nc/at, eomi, anicteric neck supple lungs clear b/l heart RRR, abd soft, less tender, + bs ext trace b/l leg edema neuro- a,a, o x 3 Urinary Catheter Management: Iraheta: Cath Placed During This Visit: yes Reason for Continuing Indwelling Catheter: Acute Urinary Retention or Obstruction Urinary Catheter Date of Insertion: 09/12/22 Urinary Catheter Time of Insertion: 21:00 Data : 09/15/22 05:31 09/15/22 05:31 Micro: Microbiology 09/12/22 19:30 Urine Culture - Final Urine,Clean Catch A&P Assessment and plan (1) NOEMI (acute kidney injury): 72 yr old female obesity, htn, dm here w/ pancreatitis/ cholecystitis 1. NOEMI- baseline cr 0.8 in 2021- cr socrates to 1.6 on aug 31. Admission cr on 09-11 was 1.3 mg/dl. Cr now 2.2 mg/dl s/p iv contrast -NOEMI- likely ATN, w/ CI- NOEMI. Pt was not eating for a couple of days and was on bumex, lisinopril, and metformin - u/a - has bacturia- no wbc -cr improving -normal ck -no hydronephrosis on abd ct scan 2. hyponatremia- from noemi - monitor w/ renal recovery and on lasix- fluid restrict, hold lasix 3. mild AGMA from NOEMI. has improved 4.pancreatitis is improving 5. improved resp status. can d/c lasix 6. wbc remains 18 7. meds reviewed seen and examined w/ RN- telehealth visit time spent 25+ min Plan see above Attestations Medical Necessity Statement*: per medicine Time Spent in Patient Care: 16 - 35 minutes (>than 50% of time spent in counselling and/or direct pt care on unit) . 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
[2022-09-15] MEDS: gabapentin 400 mg Capsule PO ×2 (09:00→16:08)
[2022-09-15] MEDS: insulin lispro 100 unit/1 mL SUBCUT ×3 (09:01→21:12)
[2022-09-15] MEDS: FUROsemide 10 mg/mL SDV 4mL 40 MG IVP (09:03)
--- NOTE | 2022-09-15 09:46 | P.PN_ITS ---
Subjective Subjective: Patient was seen this morning, patient was examined multiple times by me yesterday afternoon, she had episodes of drowsiness, usually after the morphine was given, I confirmed with her oxycodone doses she tells me that she takes 15 every 6 hours scheduled and 10 every 4 hours as needed, she continues to complain of abdominal pain, so repeat scans were ordered, she has been afebrile overnight, she is much more alert and awake this morning, still complaining of pain she wants her oxycodone 1 dose was held last night due to her mentation,, she down to 2 L Vitals/I&O/Wt Last Vital Signs Temp 98.0 F 09/15/22 07:40 Pulse 69 09/15/22 08:35 Resp 20 H 09/15/22 08:35 BP 162/70 09/15/22 07:40 Pulse Ox 96 09/15/22 08:35 O2 Del Method 09/15/22 08:35 O2 Flow Rate 2 09/15/22 08:35 09/14/22 09/15/22 09/15/22 22:59 06:59 14:59 Intake Total 183.35 / 353.35 722.617 / 1075.967 500 / 500 Output Total 900 / 2700 350 / 3050 Balance -716.65 / -2346.65 372.617 / -1974.033 500 / 500 Physical Exam Const: COMMON NORMALS: no acute distress and patient oriented x3 Resp: COMMON NORMALS: normal respiratory effort, No retractions, No use of accessory muscles and clear to auscultation bilaterally AUSCULTATION: clear to auscultation bilaterally Cardio: COMMON NORMALS: regular rate, regular rhythm, S1 normal heart sound present and S2 normal heart sound present RATE: regular rate RHYTHM: regular rhythm HEART SOUNDS: S1 normal heart sound present and S2 normal heart sound present GI: COMMON NORMALS: Normal to inspection, nondistended, normoactive bowel sounds present, non-tender and no masses Extremity: COMMON NORMALS: no pedal edema Neuro: COMMON NORMALS: patient oriented x3 Psych: COMMON NORMALS: mental status grossly normal Urinary Catheter Management: Iraheta: Cath Placed During This Visit: yes Reason for Continuing Indwelling Catheter: Acute Urinary Retention or Obstruction Urinary Catheter Date of Insertion: 09/12/22 Urinary Catheter Time of Insertion: 21:00 Data : 09/15/22 05:31 09/15/22 05:31 Micro: Microbiology 09/12/22 19:30 Urine Culture - Final Urine,Clean Catch A&P Assessment and plan (1) Pancreatitis: Repeat CT yesterday showed Liver: Normal liver size without cirrhosis. Probable mild steatosis. Gallbladder and bile ducts: Gallbladder is somewhat distended which may be related to prolonged fasting versus cholestasis. Hyperdense gallbladder content suggesting proteinaceous material/sludge and probable tiny calculi. No obvious imaging signs of acute cholecystitis or bile duct dilatation. Clinical correlation should be obtained. Sonographic follow-up may also be considered if clinically indicated. Pancreas: Diffuse peripancreatic fat stranding and trace non loculated regional fluid suggestive of acute pancreatitis. Pancreatic necrosis can not be assessed without IV contrast. No large drainable regional fluid collection or pseudocyst formation. No obvious pancreatic ductal dilatation. Spleen: Normal spleen size with calcified splenic granulomas. Adrenal glands: Normal. No mass. Kidneys and ureters: No hydronephrosis or large regional collection. Stomach and bowel: Small to moderate colonic stool burden. Colonic diverticulosis. Appendix: No evidence of appendicitis. Intraperitoneal space: Unremarkable. No free air. No significant fluid collection. Vasculature: [id number]-dt-jnodsluw dilatation of main pulmonary artery measuring 3.8 cm, unchanged. Clinical correlation for pulmonary hypertension should be obtained. No aortic aneurysm. Lymph nodes: Nonenlarged mediastinal hilar lymph nodes consistent with chronic granulomatous disease. No enlarged abdominopelvic adenopathy otherwise. Urinary bladder: Unremarkable as visualized. Reproductive: Unremarkable as visualized. Bones/joints: Multilevel vertebral disc degeneration and endplate osteophytes. No acute osseous findings otherwise. Soft tissues: Images are somewhat degraded due to external streak artifacts arising from patient's arm(s). On clear liquids for now, advance diet as tolerated encourage ambulation Continue home oxycodone 15 mg every 6 hours scheduled, with oxycodone 10 mg every 4 hours as needed this is her home medication Hold morphine due to changes in her mentation Monitor for abdominal pain Zofran and Reglan for nausea vomiting General surgery consulted Check TG 163 and alcohol levels within normal limits. Denies any recent chanegs in her medications. It appears multiple medications were changed on her last visit in Jun 2022, however patient has not made these changes. (2) Cholecystitis: General surgery on consult Empiric piperacillin tazobactam (3) Essential (primary) hypertension: Blood pressure upon arrival to the emergency room 240/110 mmHg. She has received 2 doses of iv labetalol in [facility] ER following which her BP is improved at 134/70 at time of my assessment. (4) Type 2 diabetes mellitus without complications: Insulin sliding scale. 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 -Continue Zosyn -Will add on vancomycin, MRSA nares PCR -DuoNeb -PT OT -Up out of bed, ambulating -Incentive spirometer, flutter valve -On 2 L oxygen (6) Acute encephalopathy: - Likely secondary to pancreatitis, now pneumonia, also associate with morphine use, narcotics -CT head no acute findings -On antibiotics as above -Morphine on hold -Continue to monitor (7) Atrial fibrillation with RVR: - A. fib with RVR, -Still in A. fib, rate is well controlled -Managed on therapeutic heparin, switch to therapeutic Lovenox -Continue metoprolol Plan NOEMI creatinine 1.4 monitor possible third spacing from acute pancreatitis Fluid overload, requiring 2 L, Lasix therapy currently on hold Hyponatremia, continue to monitor Chronic pain, continue home narcotics, monitor for respiratory depression Attestations Medical Necessity Statement*: Patient requires hospitalization for A. 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
--- NOTE | 2022-09-15 10:19 | PC.SOCIAL ---
IMM update IMM updated with patient. Verbalized an understanding. Copy Pg 2 provided. Initialled, dated, timed, and placed in chart.
[2022-09-15] MEDS: enoxaparin 100 mg/mL Syringe 90 MG SUBCUT ×2 (10:40→21:12)
[2022-09-15 10:53] LABS: Glucose Point of Care 188 mg/dL (70-110)
[2022-09-15] MEDS: ipratropium-albuterol 3 mL Neb INHALATION ×2 (11:40→19:27)
[2022-09-15] MEDS: vancomycin 1,000 MG in sodium chloride 0.9% 250 ML 250 MG IV (16:08)
[2022-09-15 16:55] LABS: Glucose Point of Care 174 mg/dL (70-110)
[2022-09-15 20:32] LABS: Glucose Point of Care 189 mg/dL (70-110)
--- NOTE | 2022-09-15 22:21 | PC.NURSE ---
Patient is alert and oriented at this time, was more lethargic on previous roundings. Patient reported pain and breathing even and un labored at this time on 2L nasal cannula. 15mg oxycodone administered per schedule.
[2022-09-16] VITALS (21 sets, daily range): BP systolic 130–167; BP diastolic 64–85; PULSE 65–88; RESP 14–20; TEMP 37.1–37.7; O2SAT 91–98
[2022-09-16] MEDS: famotidine 20 mg/2 mL INJ IVP ×2 (00:21→12:02)
[2022-09-16] MEDS: piperacillin-tazobactam 3.375 GM in sodium chloride 0.9% (plus) 50 ML IV ×3 (00:21→15:28)
[2022-09-16] MEDS: ipratropium-albuterol 3 mL Neb INHALATION ×6 (03:46→23:46)
[2022-09-16] MEDS: oxyCODONE 5 mg IR Tab/Cap 15 MG PO ×2 (05:12→10:28)
[2022-09-16] MEDS: ondansetron 2 mg/ML SDV 2 mL 4 MG IVP (05:15)
[2022-09-16] MEDS: metoprolol tartrate 50 mg Tablet 100 MG PO ×2 (06:29→17:31)
[2022-09-16 06:36] LABS: Glucose Point of Care 214 mg/dL (70-110)
[2022-09-16] MEDS: gabapentin 400 mg Capsule PO (07:45)
[2022-09-16] MEDS: insulin lispro 100 unit/1 mL SUBCUT ×4 (07:47→21:09)
[2022-09-16 07:51] LABS: Basophils % 0.3 %; Eosinophils # 0.2 10^3/uL (0.0-0.8); Eosinophils % 1.9 %; Hematocrit 42.2 % (37.0-47.0); Hemoglobin 13.6 g/dL (11.5-15.3); Lymphocytes # 1.4 10^3/uL (0.8-4.8); Lymphocytes % 11.6 %; Mean Corpuscular HGB Conc 32.2 g/dL (30.0-36.0); Mean Platelet Volume 10.5 fL (7.4-10.4); Monocytes # 1.1 10^3/uL (0.2-0.9); Monocytes % 9.4 %; Neutrophils # 9.02 10^3/uL (1.8-7.7); Nucleated Red Blood Cells % 0 %; Platelet Count 242 10^3/cmm (130-400); Red Blood Count 4.54 10^6/uL (4.1-5.3); Red Cell Distribution Width 13.3 % (12.1-15.1); White Blood Count 11.9 10^3/uL (4.0-10.0)
[2022-09-16 08:30] LABS: Alanine Aminotransferase 8 U/L (0-33); Albumin Level 2.7 g/dL (3.5-5.2); Alkaline Phosphatase 48 U/L (35-105); Aspartate Amino Transferase 11 U/L (0-32); Blood Urea Nitrogen 28 mg/dL (8-23); C Reactive Protein 223.6 mg/L (0.0-4.9); Calcium 9.1 mg/dL (8.5-10.5); Carbon Dioxide 25 mmol/L (22-29); Chloride 89 mmol/L (98-107); Globulin 3.7 g/dL (1.3-4.6); Glucose 184 mg/dL (65-115); Magnesium 1.9 mg/dL (1.7-2.3); Osmolality Calculated 274 mOsm/kg (285-295); Phosphorus 2.5 mg/dL (2.5-4.5); Sodium 127 mmol/L (136-145); Total Bilirubin 0.5 mg/dL (0.15-1.2); Total Protein 6.4 g/dL (6.6-8.7)
[2022-09-16 09:30] LABS: NT Pro B Type Natriuretic Pept 497 pg/mL (0-125); Procalcitonin 0.56 ng/mL (0-0.5)
[2022-09-16] MEDS: FUROsemide 10 mg/mL SDV 4mL 40 MG IVP (10:30)
[2022-09-16] MEDS: metoclopramide 5 mg/mL SDV 2 mL IVP (10:32)
[2022-09-16] MEDS: vancomycin 1,000 MG in sodium chloride 0.9% 250 ML 250 MG IV (10:35)
[2022-09-16] MEDS: enoxaparin 100 mg/mL Syringe 90 MG SUBCUT (10:46)
--- NOTE | 2022-09-16 10:52 | PM.PN ---
Subjective Subjective: No new complaints Vitals/I&O/Wt Last Vital Signs Temp 99.8 F H 09/16/22 07:49 Pulse 65 09/16/22 08:00 Resp 16 09/16/22 10:28 BP 167/85 09/16/22 07:49 Pulse Ox 98 09/16/22 08:00 O2 Del Method 09/16/22 08:00 O2 Flow Rate 2 09/16/22 08:00 09/15/22 09/16/22 09/16/22 22:59 06:59 14:59 Intake Total 540 / 1090 50 / 1140 Output Total 1450 / 1450 500 / 1950 Balance -910 / -360 -450 / -810 Physical Exam Narrative: awake alert Const: COMMON NORMALS: no acute distress and average body habitus HENMT: COMMON NORMALS: normocephalic HEAD & SCALP: normocephalic Eye: COMMON NORMALS: Equal, round and reactive pupils present PUPIL: Yes Equal, round and reactive pupils present Neck/C-Spine: COMMON NORMALS: supple Chest: COMMONS NORMALS: normal inspection of the chest Cardio: COMMON NORMALS: regular rate and regular rhythm RATE: regular rate RHYTHM: regular rhythm OTHER: per report Extremity: COMMON NORMALS: no pedal edema Urinary Catheter Management: Iraheta: Cath Placed During This Visit: yes Reason for Continuing Indwelling Catheter: Acute Urinary Retention or Obstruction Urinary Catheter Date of Insertion: 09/12/22 Urinary Catheter Time of Insertion: 21:00 Data : 09/16/22 07:42 09/16/22 07:42 A&P Assessment and plan (1) NOEMI (acute kidney injury): Plan (1) NOEMI (acute kidney injury): 72 yr old female obesity, htn, dm here w/ pancreatitis/ cholecystitis 1. NOEMI-? baseline cr 0.8 in 2021- cr socrates to 1.6 on aug 31.? Admission cr on 09-11 was 1.3 mg/dl.? Cr peaked at 2.2 mg/dl s/p iv contrast -NOEMI- likely ATN, w/ CI- NOEMI.? Pt was not eating for a couple of days and was on bumex, lisinopril, and metformin - Cr improved to 1.1 , UOP better -normal ck -no hydronephrosis on abd ct scan - will resume lasix in AM 2.? hyponatremia-? from noemi - monitor w/ renal recovery ,Na 127 today , comtinue fluid restriction to 1500 ml/day 3. mild AGMA from NOEMI.? has improved 4.pancreatitis is improving 5 . meds reviewed seen and examined w/ RN- telehealth visit time spent 25+? min Attestations Medical Necessity Statement*: Patient requires hospitalization for A. fib, pneumonia, acute encephalopathy, pancreatitis, NOEMI Time Spent in Patient Care: 30 Coding Level of Care Code Acute Encyclopedia Research Worker for Chg Fwd History Problem Focused Exam Problem Focused Medical Decision Making Straight Forward Diagnoses NOEMI (acute kidney injury) N17.9 Time Spent (min) 30
[2022-09-16 11:08] LABS: Glucose Point of Care 144 mg/dL (70-110)
[2022-09-16] MEDS: promethazine 25 mg/mL SDV 1 mL 12.5 MG IM (11:32)
--- NOTE | 2022-09-16 11:50 | PC.OT ---
Tx attempted - Patient complains of nausea this AM and is not agreeable to tx. Will try again at later time.
--- NOTE | 2022-09-16 13:27 | PM.PN ---
Subjective Subjective: Patient was seen this morning, she tells me that she still feels nauseous, her pain is better controlled, no chest pain, no palpitations, on 1 to 2 L, she feels a lot better, afebrile, still has a poor appetite, continues to feel weak Vitals/I&O/Wt Last Vital Signs Temp 99.1 F 09/16/22 11:28 Pulse 72 09/16/22 12:07 Resp 14 09/16/22 12:00 BP 130/77 09/16/22 11:28 Pulse Ox 93 09/16/22 12:00 O2 Del Method 09/16/22 12:00 O2 Flow Rate 2 09/16/22 08:00 09/15/22 09/16/22 09/16/22 22:59 06:59 14:59 Intake Total 540 / 1090 50 / 1140 300 / 300 Output Total 1450 / 1450 500 / 1950 1100 / 1100 Balance -910 / -360 -450 / -810 -800 / -800 Physical Exam Const: COMMON NORMALS: no acute distress and patient oriented x3 Resp: COMMON NORMALS: normal respiratory effort, No retractions, No use of accessory muscles and clear to auscultation bilaterally AUSCULTATION: clear to auscultation bilaterally Cardio: COMMON NORMALS: regular rate, S1 normal heart sound present and S2 normal heart sound present RATE: regular rate RHYTHM: abnormal rhythm irregularly irregular HEART SOUNDS: S1 normal heart sound present and S2 normal heart sound present GI: COMMON NORMALS: Normal to inspection, nondistended, normoactive bowel sounds present, non-tender and no masses Extremity: COMMON NORMALS: no pedal edema Neuro: COMMON NORMALS: patient oriented x3 Psych: COMMON NORMALS: mental status grossly normal Urinary Catheter Management: Iraheta: Cath Placed During This Visit: yes Reason for Continuing Indwelling Catheter: Acute Urinary Retention or Obstruction Urinary Catheter Date of Insertion: 09/12/22 Urinary Catheter Time of Insertion: 21:00 Data : 09/16/22 07:42 09/16/22 07:42 A&P Assessment and plan (1) Pancreatitis: Repeat CT yesterday showed Liver: Normal liver size without cirrhosis. Probable mild steatosis. Gallbladder and bile ducts: Gallbladder is somewhat distended which may be related to prolonged fasting versus cholestasis. Hyperdense gallbladder content suggesting proteinaceous material/sludge and probable tiny calculi. No obvious imaging signs of acute cholecystitis or bile duct dilatation. Clinical correlation should be obtained. Sonographic follow-up may also be considered if clinically indicated. Pancreas: Diffuse peripancreatic fat stranding and trace non loculated regional fluid suggestive of acute pancreatitis. Pancreatic necrosis can not be assessed without IV contrast. No large drainable regional fluid collection or pseudocyst formation. No obvious pancreatic ductal dilatation. Spleen: Normal spleen size with calcified splenic granulomas. Adrenal glands: Normal. No mass. Kidneys and ureters: No hydronephrosis or large regional collection. Stomach and bowel: Small to moderate colonic stool burden. Colonic diverticulosis. Appendix: No evidence of appendicitis. Intraperitoneal space: Unremarkable. No free air. No significant fluid collection. Vasculature: [id number] dilatation of main pulmonary artery measuring 3.8 cm, unchanged. Clinical correlation for pulmonary hypertension should be obtained. No aortic aneurysm. Lymph nodes: Nonenlarged mediastinal hilar lymph nodes consistent with chronic granulomatous disease. No enlarged abdominopelvic adenopathy otherwise. Urinary bladder: Unremarkable as visualized. Reproductive: Unremarkable as visualized. Bones/joints: Multilevel vertebral disc degeneration and endplate osteophytes. No acute osseous findings otherwise. Soft tissues: Images are somewhat degraded due to external streak artifacts arising from patient's arm(s). Advance to GI soft diet Continue home oxycodone 15 mg every 6 hours scheduled, with oxycodone 10 mg every 4 hours as needed this is her home medication Increase her gabapentin to her home dose of 800 3 times daily Monitor for abdominal pain Zofran and Reglan for nausea vomiting, add on promethazine for nausea vomiting General surgery consulted Check TG 163 and alcohol levels within normal limits. Denies any recent chanegs in her medications. It appears multiple medications were changed on her last visit in Jun 2022, however patient has not made these changes. (2) Cholecystitis: General surgery on consult Empiric piperacillin tazobactam (3) Essential (primary) hypertension: (4) Type 2 diabetes mellitus without complications: Insulin sliding scale. Hold OHAs, Qualifiers: Diabetes mellitus skilled nursing insulin use: without skilled nursing use Qualified Code(s): E11.9 - Type 2 diabetes mellitus without complications (5) Pneumonia: -Evidence of healthcare associated pneumonia -Elevated CRP, Pro-Tyler -Lungs: Bibasilar airspace consolidations in the posterior lung bases which may represent atelectasis versus superimposed pneumonia. -Continue Zosyn -Continue Zosyn -DuoNeb -PT OT -Up out of bed, ambulating -Incentive spirometer, flutter valve -On 2 L oxygen (6) Acute encephalopathy: - Likely secondary to pancreatitis, now pneumonia, also associate with morphine use, narcotics -CT head no acute findings -On antibiotics as above -Morphine on hold -Continue to monitor (7) Atrial fibrillation with RVR: - A. fib with RVR, -Still in A. fib, rate is well controlled -Managed on therapeutic heparin, switch to therapeutic Lovenox, now discontinued we will switch to Eliquis -Continue metoprolol Plan NOEMI creatinine 1.1monitor possible third spacing from acute pancreatitis Fluid overload, r resolved Hyponatremia, continue to monitor, likely sec to dehydration, encourage p.o. intake avoid fluids due to concerns for fluid overload Chronic pain, continue home narcotics, monitor for respiratory depression Poor appetite, encourage p.o. intake Deconditioning, PT OT Attestations Medical Necessity Statement*: Patient requires hospitalization for pneumonia, pancreatitis, Coding Level of Care Code Acute Manager Behavioral for [facility] Diagnoses Pancreatitis K85.90 Cholecystitis K81.9 Essential (primary) hypertension I10 Type 2 diabetes mellitus without complications E11.9 Diabetes mellitus long term care phlebotomist insulin use: without long term care phlebotomist use Pneumonia J18.9 Acute encephalopathy G93.40 Atrial fibrillation with RVR I48.91
[2022-09-16] MEDS: gabapentin 400 mg Capsule 800 MG PO (15:28)
[2022-09-16 16:58] LABS: Glucose Point of Care 167 mg/dL (70-110)
[2022-09-16] MEDS: oxyCODONE 5 mg IR Tab/Cap 10 MG PO (19:31)
[2022-09-16] MEDS: apixaban 5 mg Tablet PO (21:09)
[2022-09-16 21:25] LABS: Glucose Point of Care 178 mg/dL (70-110)
[2022-09-17] VITALS (16 sets, daily range): BP systolic 117–157; BP diastolic 63–76; PULSE 60–88; RESP 16–18; TEMP 36.5–37.2; O2SAT 1–96
[2022-09-17] MEDS: famotidine 20 mg/2 mL INJ IVP ×2 (00:18→12:37)
[2022-09-17] MEDS: piperacillin-tazobactam 3.375 GM in sodium chloride 0.9% (plus) 50 ML IV ×2 (00:20→08:34)
[2022-09-17] MEDS: oxyCODONE 5 mg IR Tab/Cap 10 MG PO ×2 (01:10→08:36)
[2022-09-17] MEDS: oxyCODONE 5 mg IR Tab/Cap 15 MG PO ×4 (04:33→22:54)
[2022-09-17] MEDS: ipratropium-albuterol 3 mL Neb INHALATION ×3 (04:40→20:15)
[2022-09-17 05:30] LABS: Basophils # 0.1 10^3/uL (0.0-0.1); Basophils % 0.5 %; Eosinophils # 0.1 10^3/uL (0.0-0.8); Eosinophils % 1.4 %; Hematocrit 42.4 % (37.0-47.0); Hemoglobin 13.8 g/dL (11.5-15.3); Lymphocytes # 1.8 10^3/uL (0.8-4.8); Lymphocytes % 17.2 %; Mean Corpuscular HGB Conc 32.5 g/dL (30.0-36.0); Mean Corpuscular Hemoglobin 29.7 pg (28.0-34.0); Mean Corpuscular Volume 91.2 fl (81-99); Mean Platelet Volume 10.9 fL (7.4-10.4); Monocytes # 1.1 10^3/uL (0.2-0.9); Monocytes % 10.6 %; Neutrophils # 7.16 10^3/uL (1.8-7.7); Neutrophils % 69.4 %; Nucleated Red Blood Cells % 0 %; Platelet Count 274 10^3/cmm (130-400); Red Blood Count 4.65 10^6/uL (4.1-5.3); Red Cell Distribution Width 13.2 % (12.1-15.1); White Blood Count 10.3 10^3/uL (4.0-10.0)
[2022-09-17] MEDS: fixodent 39 gm Tube 1 APPLIC DENTAL (05:38)
[2022-09-17 05:56] LABS: NT Pro B Type Natriuretic Pept 359 pg/mL (0-125); Procalcitonin 0.45 ng/mL (0-0.5)
[2022-09-17] MEDS: metoprolol tartrate 50 mg Tablet 100 MG PO ×2 (06:02→17:28)
[2022-09-17] MEDS: gabapentin 400 mg Capsule 800 MG PO ×3 (06:02→22:54)
[2022-09-17 06:09] LABS: Alanine Aminotransferase 8 U/L (0-33); Albumin Level 2.9 g/dL (3.5-5.2); Alkaline Phosphatase 48 U/L (35-105); Anion Gap 20.7 (5-19); Aspartate Amino Transferase 13 U/L (0-32); Blood Urea Nitrogen 25 mg/dL (8-23); C Reactive Protein 195.6 mg/L (0.0-4.9); Calcium 9.1 mg/dL (8.5-10.5); Carbon Dioxide 25 mmol/L (22-29); Chloride 90 mmol/L (98-107); Globulin 3.6 g/dL (1.3-4.6); Glucose 188 mg/dL (65-115); Osmolality Calculated 283 mOsm/kg (285-295); Phosphorus 2.7 mg/dL (2.5-4.5); Potassium 3.7 mmol/L (3.5-5.1); Sodium 132 mmol/L (136-145); Total Bilirubin 0.5 mg/dL (0.15-1.2); Total Protein 6.5 g/dL (6.6-8.7)
[2022-09-17 07:35] LABS: Glucose Point of Care 290 mg/dL (70-110)
[2022-09-17] MEDS: insulin lispro 100 unit/1 mL SUBCUT ×4 (08:34→21:11)
--- NOTE | 2022-09-17 10:28 | PC.SOCIAL ---
IMM Updated Updated pt on IMM. No questions voiced. Provided pt a copy. Initialed, dated, & timed copy in chart.
[2022-09-17] MEDS: apixaban 5 mg Tablet PO ×2 (10:33→22:54)
[2022-09-17 11:07] LABS: Glucose Point of Care 253 mg/dL (70-110)
[2022-09-17] MEDS: vancomycin 1,000 MG in sodium chloride 0.9% 250 ML 250 MG IV (12:00)
--- NOTE | 2022-09-17 12:43 | PM.PN ---
Subjective Subjective: No new complaints Vitals/I&O/Wt Last Vital Signs Temp 97.7 F 09/17/22 11:58 Pulse 66 09/17/22 11:58 Resp 17 09/17/22 11:58 BP 123/72 09/17/22 11:58 Pulse Ox 92 09/17/22 11:58 O2 Del Method 09/17/22 11:58 O2 Flow Rate 1 09/17/22 07:29 09/16/22 09/17/22 09/17/22 22:59 06:59 14:59 Intake Total 350 / 650 290 / 940 163.542 / 163.542 Output Total 800 / 1900 Balance 350 / -450 -510 / -960 163.542 / 163.542 Physical Exam Const: COMMON NORMALS: no acute distress Resp: COMMON NORMALS: normal respiratory effort and No retractions Cardio: COMMON NORMALS: regular rate RATE: regular rate GI: COMMON NORMALS: Normal to inspection, nondistended, normoactive bowel sounds present Extremity: COMMON NORMALS: no pedal edema Psych: COMMON NORMALS: mental status grossly normal Urinary Catheter Management: Iraheta: Cath Placed During This Visit: yes Reason for Continuing Indwelling Catheter: Acute Urinary Retention or Obstruction Urinary Catheter Date of Insertion: 09/12/22 Urinary Catheter Time of Insertion: 21:00 Data : 09/17/22 04:24 09/17/22 04:24 Micro: Microbiology 09/12/22 04:50 Blood Culture - Final Blood NO GROWTH AFTER 5 DAYS 09/12/22 04:53 Blood Culture - Final Blood NO GROWTH AFTER 5 DAYS 09/15/22 17:00 MRSA Culture - Final Nose A&P Assessment and plan (1) NOEMI (acute kidney injury): [place] [address] Progress Note Signed Patient: Elena Salinas MR#: [id number] : 1950 Age/Sex: 72 / F ADM Date: 09/12/22 Loc: [facility]? Room/Bed: [facility] Encounter Date: 09/16/[address]: Junior Jordan MD Report Number: [id number] Subjective Subjective:?? No new complaints Vitals/I&O/Wt Last Vital Signs Temp ?99.8 F H ?09/16/22 07:49 Pulse ?65 ?09/16/22 08:00 Resp ?16 ?09/16/22 10:28 BP ?167/85 ?09/16/22 07:49 Pulse Ox ?98 ?09/16/22 08:00 O2 Del Method ? ?09/16/22 08:00 O2 Flow Rate ?2 ?09/16/22 08:00 ? 09/15/22 09/16/22 09/16/22 ? 22:59 06:59 14:59 Intake Total 540 / 1090 50 / 1140 ? Output Total 1450 / 1450 500 / 1950 ? Balance -910 / -360 -450 / -810 ? Physical Exam Narrative:?? awake alert Const:?? COMMON NORMALS: no acute distress and average body habitus HENMT:?? COMMON NORMALS: normocephalic? HEAD & SCALP: normocephalic Eye:?? COMMON NORMALS: Equal, round and reactive pupils present? PUPIL: Yes Equal, round and reactive pupils present Neck/C-Spine:?? COMMON NORMALS: supple Chest:?? COMMONS NORMALS: normal inspection of the chest Cardio:?? COMMON NORMALS: regular rate and regular rhythm? RATE: regular rate? RHYTHM: regular rhythm? OTHER: per report Extremity:?? COMMON NORMALS: no pedal edema Urinary Catheter Management:?? Iraheta: Cath Placed During This Visit: yes Reason for Continuing Indwelling Catheter: Acute Urinary Retention or Obstruction Urinary Catheter Date of Insertion: 09/12/22 Urinary Catheter Time of Insertion: 21:00 ? [address] [address] Progress Note Signed Patient: Elena Salinas MR#: [id number] : 1950 Age/Sex: 72 / F ADM Date: 09/12/22 Loc: [facility]? Room/Bed: [facility] Encounter Date: 09/16/[address]: Junior Jordan MD Report Number: [id number] Subjective Subjective:?? No new complaints Vitals/I&O/Wt Last Vital Signs Temp ?99.8 F H ?09/16/22 07:49 Pulse ?65 ?09/16/22 08:00 Resp ?16 ?09/16/22 10:28 BP ?167/85 ?09/16/22 07:49 Pulse Ox ?98 ?09/16/22 08:00 O2 Del Method ? ?09/16/22 08:00 O2 Flow Rate ?2 ?09/16/22 08:00 ? 09/15/22 09/16/22 09/16/22 ? 22:59 06:59 14:59 Intake Total 540 / 1090 50 / 1140 ? Output Total 1450 / 1450 500 / 1950 ? Balance -910 / -360 -450 / -810 ? Physical Exam Narrative:?? awake alert Const:?? COMMON NORMALS: no acute distress and average body habitus HENMT:?? COMMON NORMALS: normocephalic? HEAD & SCALP: normocephalic Eye:?? COMMON NORMALS: Equal, round and reactive pupils present? PUPIL: Yes Equal, round and reactive pupils present Neck/C-Spine:?? COMMON NORMALS: supple Chest:?? COMMONS NORMALS: normal inspection of the chest Cardio:?? COMMON NORMALS: regular rate and regular rhythm? RATE: regular rate? RHYTHM: regular rhythm? OTHER: per report Extremity:?? COMMON NORMALS: no pedal edema Urinary Catheter Management:?? Iraheta: Cath Placed During This Visit: yes Reason for Continuing Indwelling Catheter: Acute Urinary Retention or Obstruction Urinary Catheter Date of Insertion: 09/12/22 Urinary Catheter Time of Insertion: 21:00 ? Data : 09/16/22 07:42? 09/16/22 07:42? A&P Assessment and plan (1) NOEMI (acute kidney injury): Plan (1) NOEMI (acute kidney injury): 72 yr old female obesity, htn, dm here w/ pancreatitis/ cholecystitis 1. NOEMI-? baseline cr 0.8 in 2021- cr socrates to 1.6 on aug 31.? Admission cr on 09-11 was 1.3 mg/dl.? Cr peaked at? 2.2 mg/dl s/p iv contrast -NOEMI- likely ATN, w/ CI- NOEMI.? Pt was not eating for a couple of days and was on bumex, lisinopril, and metformin - Cr improved to 1.0 , UOP better -normal ck -no hydronephrosis on abd ct scan - will resume Po lasix 2.? Hyponatremia-? from noemi - monitor w/ renal recovery ,Na 127 today , comtinue fluid restriction to 1500 ml/day 3. mild AGMA from NOEMI.? has improved 4.pancreatitis is improving 5 . meds reviewed seen and examined w/ RN- telehealth visit time spent 25+? min Attestations Medical Necessity Statement*: Patient requires hospitalization for pneumonia, pancreatitis, Coding Level of Care Code Established Pt Acute Host/Hostess Ground for Chg Fwd Patient Type Established History Problem Focused Exam Problem Focused Medical Decision Making Straight Forward Diagnoses NOEMI (acute kidney injury) N17.9
[2022-09-17] MEDS: FUROsemide 10 mg/mL SDV 4mL 40 MG IVP (13:57)
[2022-09-17 14:32] LABS: Vit D 1,25 (Oh)2, Total 36 pg/mL (18-72); Vit D2 1,25 (Oh)2 36 pg/mL; Vit D3 1,25 (Oh)2 <8 pg/mL
--- NOTE | 2022-09-17 14:32 | P.PN_ITS ---
Subjective Subjective: Patient was seen this morning she is sitting up in a chair, she tells me that she feels a lot better, still on about a liter of oxygen, no fevers, no chills, still feeling weak, but working with physical therapy continues to have a poor appetite but improving, abdominal pain has significantly subsided Vitals/I&O/Wt Last Vital Signs Temp 97.7 F 09/17/22 11:58 Pulse 66 09/17/22 11:58 Resp 17 09/17/22 11:58 BP 123/72 09/17/22 11:58 Pulse Ox 92 09/17/22 11:58 O2 Del Method 09/17/22 11:58 O2 Flow Rate 1 09/17/22 07:29 09/16/22 09/17/22 09/17/22 22:59 06:59 14:59 Intake Total 350 / 650 290 / 940 540.000 / 540.000 Output Total 800 / 1900 Balance 350 / -450 -510 / -960 540.000 / 540.000 Physical Exam Const: COMMON NORMALS: no acute distress and patient oriented x3 Resp: COMMON NORMALS: normal respiratory effort, No retractions, No use of accessory muscles and clear to auscultation bilaterally AUSCULTATION: clear to auscultation bilaterally Cardio: COMMON NORMALS: regular rate, regular rhythm, S1 normal heart sound present and S2 normal heart sound present RATE: regular rate RHYTHM: regular rhythm HEART SOUNDS: S1 normal heart sound present and S2 normal heart sound present GI: COMMON NORMALS: Normal to inspection, nondistended, normoactive bowel soun ds present and non-tender Extremity: COMMON NORMALS: no pedal edema Neuro: COMMON NORMALS: patient oriented x3 Psych: COMMON NORMALS: mental status grossly normal Urinary Catheter Management: Iraheta: Cath Placed During This Visit: yes Reason for Continuing Indwelling Catheter: Acute Urinary Retention or Obstruction Urinary Catheter Date of Insertion: 09/12/22 Urinary Catheter Time of Insertion: 21:00 Data : 09/17/22 04:24 09/17/22 04:24 Micro: Microbiology 09/12/22 04:50 Blood Culture - Final Blood NO GROWTH AFTER 5 DAYS 09/12/22 04:53 Blood Culture - Final Blood NO GROWTH AFTER 5 DAYS 09/15/22 17:00 MRSA Culture - Final Nose A&P Assessment and plan (1) Pancreatitis: Repeat CT showed Liver: Normal liver size without cirrhosis. Probable mild steatosis. Gallbladder and bile ducts: Gallbladder is somewhat distended which may be related to prolonged fasting versus cholestasis. Hyperdense gallbladder content suggesting proteinaceous material/sludge and probable tiny calculi. No obvious imaging signs of acute cholecystitis or bile duct dilatation. Clinical correlation should be obtained. Sonographic follow-up may also be considered if clinically indicated. Pancreas: Diffuse peripancreatic fat stranding and trace non loculated regional fluid suggestive of acute pancreatitis. Pancreatic necrosis can not be assessed without IV contrast. No large drainable regional fluid collection or pseudocyst formation. No obvious pancreatic ductal dilatation. Spleen: Normal spleen size with calcified splenic granulomas. Adrenal glands: Normal. No mass. Kidneys and ureters: No hydronephrosis or large regional collection. Stomach and bowel: Small to moderate colonic stool burden. Colonic diverticulosis. Appendix: No evidence of appendicitis. Intraperitoneal space: Unremarkable. No free air. No significant fluid collection. Vasculature: [id number] dilatation of main pulmonary artery measuring 3.8 cm, unchanged. Clinical correlation for pulmonary hypertension should be obtained. No aortic aneurysm. Lymph nodes: Nonenlarged mediastinal hilar lymph nodes consistent with chronic granulomatous disease. No enlarged abdominopelvic adenopathy otherwise. Urinary bladder: Unremarkable as visualized. Reproductive: Unremarkable as visualized. Bones/joints: Multilevel vertebral disc degeneration and endplate osteophytes. No acute osseous findings otherwise. Soft tissues: Images are somewhat degraded due to external streak artifacts arising from patient's arm(s). Advance to GI soft diet Continue home oxycodone 15 mg every 6 hours scheduled, with oxycodone 10 mg every 4 hours as needed this is her home medication Increase her gabapentin to her home dose of 800 3 times daily Monitor for abdominal pain Zofran and Reglan for nausea vomiting, add on promethazine for nausea vomiting General surgery consulted Check TG 163 and alcohol levels within normal limits. Denies any recent chanegs in her medications. It appears multiple medications were changed on her last visit in Jun 2022, however patient has not made these changes. -Likely discharge tomorrow (2) Cholecystitis: General surgery on consult De-escalate to Augmentin (3) Essential (primary) hypertension: (4) Type 2 diabetes mellitus without complications: Insulin sliding scale. Hold OHAs, Qualifiers: Diabetes mellitus halfway insulin use: without halfway use Qualified Code(s): E11.9 - Type 2 diabetes mellitus without complications (5) Pneumonia: -Evidence of healthcare associated pneumonia -Elevated CRP, Pro-Tyler -Lungs: Bibasilar airspace consolidations in the posterior lung bases which may represent atelectasis versus superimposed pneumonia. --De-escalate antibiotics to Augmentin -DuoNeb -PT OT -Up out of bed, ambulating -Incentive spirometer, flutter valve -On 2 L oxygen (6) Acute encephalopathy: -Resolved - Likely secondary to pancreatitis, now pneumonia, also associate with morphine use, narcotics -CT head no acute findings -On antibiotics as above -Morphine on hold -Continue to monitor (7) Atrial fibrillation with RVR: - A. fib with RVR, -Still in A. fib, rate is well controlled -Managed on therapeutic heparin, switch to therapeutic Lovenox, now discontinued we will switch to Eliquis -Continue metoprolol Plan NOEMI creatinine 1.1monitor possible third spacing from acute pancreatitis Fluid overload, r resolved Hyponatremia, continue to monitor, likely sec to dehydration, encourage p.o. intake avoid fluids due to concerns for fluid overload Chronic pain, continue home narcotics, monitor for respiratory depression Poor appetite, encourage p.o. intake Deconditioning, PT OT Attestations Medical Necessity Statement*: Patient requires hospitalization for pneumonia, pancreatitis, deconditioning, poor appetite, likely will be discharged in the next 24 hours Coding Level of Care Code Acute Vice President Sales And Marketing for [facility] Fwd Diagnoses Pancreatitis K85.90 Cholecystitis K81.9 Essential (primary) hypertension I10 Type 2 diabetes mellitus without complications E11.9 Diabetes mellitus exterminator termite insulin use: without halfway use Pneumonia J18.9 Acute encephalopathy G93.40 Atrial fibrillation with RVR I48.91
[2022-09-17 16:57] LABS: Glucose Point of Care 385 mg/dL (70-110)
[2022-09-17] MEDS: amoxicillin-clav 875-125 mg Tablet 1 TAB PO (17:28)
[2022-09-17 20:42] LABS: Glucose Point of Care 305 mg/dL (70-110)
[2022-09-18] VITALS (20 sets, daily range): BP systolic 118–152; BP diastolic 68–81; PULSE 65–88; RESP 16–20; TEMP 36.6–37.2; O2SAT 90–95
[2022-09-18] MEDS: famotidine 20 mg/2 mL INJ IVP (00:37)
[2022-09-18] MEDS: ipratropium-albuterol 3 mL Neb INHALATION ×5 (03:38→20:45)
[2022-09-18] MEDS: oxyCODONE 5 mg IR Tab/Cap 15 MG PO ×4 (03:44→22:20)
[2022-09-18 04:18] LABS: Basophils # 0.1 10^3/uL (0.0-0.1); Basophils % 0.4 %; Eosinophils # 0.4 10^3/uL (0.0-0.8); Eosinophils % 3.2 %; Hemoglobin 13.3 g/dL (11.5-15.3); Lymphocytes # 2.4 10^3/uL (0.8-4.8); Lymphocytes % 19.1 %; Mean Corpuscular HGB Conc 33.3 g/dL (30.0-36.0); Mean Corpuscular Hemoglobin 30.2 pg (28.0-34.0); Mean Corpuscular Volume 90.7 fl (81-99); Mean Platelet Volume 10.9 fL (7.4-10.4); Monocytes # 1.3 10^3/uL (0.2-0.9); Monocytes % 10.2 %; Neutrophils # 8.13 10^3/uL (1.8-7.7); Nucleated Red Blood Cells % 0 %; Platelet Count 266 10^3/cmm (130-400); Red Blood Count 4.41 10^6/uL (4.1-5.3); Red Cell Distribution Width 13.2 % (12.1-15.1); White Blood Count 12.5 10^3/uL (4.0-10.0)
[2022-09-18] MEDS: ondansetron 2 mg/ML SDV 2 mL 4 MG IVP (04:44)
[2022-09-18 05:23] LABS: Alanine Aminotransferase 9 U/L (0-33); Albumin Level 2.7 g/dL (3.5-5.2); Alkaline Phosphatase 50 U/L (35-105); Anion Gap 15.5 (5-19); Aspartate Amino Transferase 19 U/L (0-32); Blood Urea Nitrogen 26 mg/dL (8-23); C Reactive Protein 142.5 mg/L (0.0-4.9); Calcium 9.2 mg/dL (8.5-10.5); Carbon Dioxide 28 mmol/L (22-29); Chloride 88 mmol/L (98-107); Globulin 3.5 g/dL (1.3-4.6); Glucose 206 mg/dL (65-115); Magnesium 1.9 mg/dL (1.7-2.3); Osmolality Calculated 277 mOsm/kg (285-295); Potassium 3.5 mmol/L (3.5-5.1); Procalcitonin 0.42 ng/mL (0-0.5); Sodium 128 mmol/L (136-145); Total Bilirubin 0.4 mg/dL (0.15-1.2); Total Protein 6.2 g/dL (6.6-8.7)
[2022-09-18] MEDS: metoprolol tartrate 50 mg Tablet 100 MG PO ×2 (05:59→17:29)
[2022-09-18] MEDS: gabapentin 400 mg Capsule 800 MG PO ×3 (05:59→22:20)
[2022-09-18 06:47] LABS: Glucose Point of Care 268 mg/dL (70-110)
[2022-09-18] MEDS: oxyCODONE 5 mg IR Tab/Cap 10 MG PO ×2 (07:47→14:19)
[2022-09-18] MEDS: insulin lispro 100 unit/1 mL SUBCUT ×4 (07:50→21:09)
[2022-09-18] MEDS: amoxicillin-clav 875-125 mg Tablet 1 TAB PO ×2 (09:24→17:29)
[2022-09-18] MEDS: apixaban 5 mg Tablet PO ×2 (09:24→21:09)
--- NOTE | 2022-09-18 10:28 | P.DS_ITS ---
Discharge Providers Date of Admission: 09/12/22 00:42 Date of Discharge: September 18, 2022 Attending Provider at Admission: Cara Soto MD Attending Provider at Discharge: Junior Jordan MD Primary Care Provider: DOMINICK Vizcarra Diagnoses at Discharge Discharge Diagnosis (1) Pancreatitis: Status: Acute (2) Cholecystitis: Status: Inactive (3) Essential (primary) hypertension: Status: Acute (4) Type 2 diabetes mellitus without complications: Status: Acute Qualifiers: Diabetes mellitus long term care phlebotomist insulin use: without long term care phlebotomist use Qualified Code(s): E11.9 - Type 2 diabetes mellitus without complications (5) Pneumonia: Status: Acute (6) Acute encephalopathy: Status: Acute (7) Atrial fibrillation with RVR: Status: Acute Reason for Visit Reason for Visit: ABD PAIN Hospital Course Hospital Course Elena Salinas is a 72 year old female with a past medical history of type 2 diabetes mellitus, neuropathy, dyslipidemia, chronic back pain on chronic opiate medications, who presents [facility] with chief complaint of epigastric pain which started around 24 hours ago.? Complains of radiation into her back and lower abdomen.? Patient was admitted to [facility] for pancreatitis? Pancreatitis: Repeat CT showed Liver: Normal liver size without cirrhosis. Probable mild steatosis. Gallbladder and bile ducts: Gallbladder is somewhat distended which may be related to prolonged fasting versus cholestasis. Hyperdense gallbladder content suggesting proteinaceous material/sludge and probable tiny calculi. No obvious imaging signs of acute cholecystitis or bile duct dilatation. Clinical correlation should be obtained. Sonographic follow-up may also be considered if clinically indicated. Pancreas: Diffuse peripancreatic fat stranding and trace non loculated regional fluid suggestive of acute pancreatitis. Pancreatic necrosis can not be assessed without IV contrast. No large drainable regional fluid collection or pseudocyst formation. No obvious pancreatic ductal dilatation. Spleen: Normal spleen size with calcified splenic granulomas. Adrenal glands: Normal. No mass. Kidneys and ureters: No hydronephrosis or large regional collection. Stomach and bowel: Small to moderate colonic stool burden. Colonic diverticulosis. Appendix: No evidence of appendicitis. Intraperitoneal space: Unremarkable. No free air. No significant fluid collection. Vasculature: [id number] dilatation of main pulmonary artery measuring 3.8 cm, unchanged. Clinical correlation for pulmonary hypertension should be obtained. No aortic aneurysm. Lymph nodes: Nonenlarged mediastinal hilar lymph nodes consistent with chronic granulomatous disease. No enlarged abdominopelvic adenopathy otherwise. Urinary bladder: Unremarkable as visualized. Reproductive: Unremarkable as visualized. Bones/joints: Multilevel vertebral disc degeneration and endplate osteophytes. No acute osseous findings otherwise. Soft tissues: Images are somewhat degraded due to external streak artifacts arising from patient's arm(s). She was monitored as inpatient and receive IV fluids, electrolyte replacement, clinically monitor, general surgery consulted, as there was concern for possible acute cholecystitis, recommended medical management with close follow-up as outpatient, received IV antibiotics, received pain control, overall clinically improved. TG 163 and alcohol levels within normal limits. Denies any recent chanegs in her medications. It appears multiple medications were changed on her last visit in Jun 2022. Discharged home on a GI soft diet, advised to avoid fatty foods, high calorie dense foods, monitor recurrent abdominal pain, follow- up with general surgery in 1 week, follow-up with GI for consideration of HIDA scan ERCP in 1 month. There was concerns for acute cholecystitis on admission, received broad-spectrum antibiotic therapy IV fluids, general surgery was consulted, overall clinically improved recommended comanagement with close follow-up with general surgery as outpatient Patient was also developed fluid overload, with pneumonia during hospitalization requiring broad-spectrum antibiotic therapy, overall oxygen requirements returned to room air on discharge, antibiotic therapy de-escalated, patient overall clinically improved. Discharged on 5 days of Augmentin There was concerns for acute encephalopathy during hospitalization, likely secondary pneumonia, pancreatitis, narcotics, clinically improved alert oriented x3 on discharge Had fluid overload during hospitalization requiring diuresis, overall clinically improved Had NOEMI during hospitalization, nephrology consulted, likely multifactorial from third spacing from pancreatitis, discharged with close follow-up with primary care as outpatient Developed hyponatremia during hospitalization likely severe dehydration, decreased p.o. intake, diuretics, serum sodium 128 on discharge, overall clinically improved, discharged with close follow-up with [place] as outpatient Continue to have some degree of poor appetite, deconditioning during hospitalization, will be discharged under the care of her daughter Developed A. fib with RVR during hospitalization, rate controlled with metoprolol, Eliquis added, no significant bleeding, remains in A. fib, rate controlled. Advised to monitor for bloody black stools if so go to the emergency room For type 2 diabetes mellitus, discharged on NovoLog, Lantus -For your pancreatitis, slowly advance diet, avoid fatty foods, avoid high calorie dense foods, avoid sugary foods if you have recurrent abdominal pain go to the emergency room -Follow-up with general surgery in 1 to 2 weeks -I have sent off a referral for gastroenterology for consideration of HIDA scan and or ERCP procedure -Please monitor your blood sugars closely -Monitor your blood sugars 3 times daily as after meals -Please record your blood sugars, and a blood sugar log -For your NovoLog -Please inject blood sugar after meals based on sliding scale provided -Do not inject insulin if you do not eat as hypoglycemia kills -This is a NovoLog sliding scale -Insulin sliding ?fingerstick? Insulin ?141-180?2 units/sq 181-220?4 units/sq ?221-260?6 units/sq ?261-300?8 units/sq ?301-350 10 units/sq ?351-400 12 units/sq > 400? 14 units/sq -If your blood sugar is greater than 500 go to the emergency room -If your blood sugar is less than 60 or at anytime you feel lightheaded or dizzy or diaphoretic or have chest palpitations check your blood sugar, and eat a hard candy or drink orange juice and go immediately to the emergency room -Remember hypoglycemia kills, so if his blood sugar is less than 60 we have to increase it by taking in a sugary meal such as a hard candy or orange juice and go to the emergency room -If you have any questions please call us where here to help -I discharged on Lantus 5 units twice daily -Please limit fluid intake between 1 to 2 L a day -For your atrial fibrillation, I have discharged on Eliquis -Please monitor for bloody or black stools if so go to the emergency room Physical Exam Const: COMMON NORMALS: no acute distress and patient oriented x3 Resp: COMMON NORMALS: normal respiratory effort, No retractions, No use of accessory muscles and clear to auscultation bilaterally AUSCULTATION: clear to auscultation bilaterally Cardio: COMMON NORMALS: regular rate, regular rhythm, S1 normal heart sound present and S2 normal heart sound present RATE: regular rate RHYTHM: regular rhythm HEART SOUNDS: S1 normal heart sound present and S2 normal h eart sound present GI: COMMON NORMALS: Normal to inspection, nondistended, normoactive bowel sounds present and non-tender Extremity: COMMON NORMALS: no pedal edema Neuro: COMMON NORMALS: patient oriented x3 Psych: COMMON NORMALS: mental status grossly normal Urinary Catheter Management: Iraheta: Cath Placed During This Visit: yes Reason for Continuing Indwelling Catheter: Acute Urinary Retention or Obstruction Urinary Catheter Date of Insertion: 09/12/22 Urinary Catheter Time of Insertion: 21:00 Discharge Data Studies Completed and Pending Completed Studies During Hospitalization Category Date Time Status CT abdomen pelvis w con* [id number] Urgent Cat Scan 09/11/22 21:[address] abdomen pelvis wo con [id number] Routine Cat Scan 09/14/22 14:[address] head wo con* [id number] Routine Cat Scan 09/14/22 14:41 Completed XR chest 1V portable [id number] Routine Exams 09/13/22 11:37 Completed XR chest 1V portable [id number] Routine Exams 09/14/22 10:44 Completed XR chest 1V portable [id number] Stat Exams 09/11/22 20:55 [place] [id number] Routine Ultrasound 09/14/22 14:07 Completed CV. echo limited [id number] Routine Ultrasound 09/14/22 11:03 Completed US gall bladder [id number] Routine Ultrasound 09/12/22 08:54 Completed US gall bladder [id number] Stat Ultrasound 09/11/22 22:57 Completed US renal BI* [id number] Routine Ultrasound 09/13/22 08:51 Completed Pending at discharge Category Date Time Status A1C [Hemoglobin A1C] Stat Lab 09/18/22 10:02 Ordered C Reactive Protein AM LABS Lab 09/19/22 04:00 Ordered Complete Blood Count w/Auto AM LABS Lab 09/19/22 04:00 Ordered Comprehensive Metabolic Panel AM LABS Lab 09/19/22 04:00 Ordered Magnesium AM LABS Lab 09/19/22 04:00 Ordered Phosphorus AM LABS Lab 09/19/22 04:00 Ordered Procalcitonin AM LABS Lab 09/19/22 04:00 Ordered Sputum Culture and Gram Stain Stat Lab 09/15/22 09:49 Uncollected Radiology Impressions Gallbladder Ultrasound 09/12/22 08:54 IMPRESSION: 1. Cannot confirm shadowing gallstones. There is a soft tissue nodule in the posterior wall of the gallbladder which is nonmobile and does not shadow. May be tumefactive sludge or small polyp or early gallbladder wall nodule. 2. No bile duct dilatation. 3. Notified Abdon Gtz MD at 09/12/2022 10:33 AM. Renal Ultrasound 09/13/22 08:51 IMPRESSION: Normal renal ultrasound. Chest X-Ray 09/14/22 10:44 IMPRESSION: Poor inspiration. No acute abnormality. Abdomen/Pelvis CT 09/14/22 14:41 IMPRESSION: 1. Limited exam due to artifacts and lack of IV contrast. Findings suspicious for acute pancreatitis. No large regional collection/pseudocyst formation or biliary dilatation. Distended gallbladder with probable sludge and small calculi as described above. 2. Colonic diverticulosis and low-moderate stool burden. 3. Probable mild hepatic steatosis. 4. Abnormal lower thoracic findings. See discussion above. Head CT 09/14/22 14:41 IMPRESSION: 1. No evidence of intracranial hemorrhage or mass effect. 2. Mild small vessel changes with mild parenchymal volume loss. 3. No acute intracranial findings. Laboratory Results WBC 12.5 10^3/uL (4.0-10.0) H 09/18/22 03:22 RBC 4.41 10^6/uL (4.1-5.3) 09/18/22 03:22 Hgb 13.3 g/dL (11.5-15.3) 09/18/22 03:22 Hct 40.0 % (37.0-47.0) 09/18/22 03:22 MCV 90.7 fl (81-99) 09/18/22 03:22 MCH 30.2 pg (28.0-34.0) 09/18/22 03:22 MCHC 33.3 g/dL (30.0-36.0) 09/18/22 03:22 RDW 13.2 % (12.1-15.1) 09/18/22 03:22 Plt Count 266 10^3/cmm (130-400) 09/18/22 03:22 MPV 10.9 fL (7.4-10.4) H 09/18/22 03:22 Neut % (Auto) 65.0 % 09/18/22 03:22 Lymph % (Auto) 19.1 % 09/18/22 03:22 Mcpherson % (Auto) 10.2 % 09/18/22 03:22 Eos % (Auto) 3.2 % 09/18/22 03:22 Baso % (Auto) 0.4 % 09/18/22 03:22 Neut # (Auto) 8.13 10^3/uL (1.8-7.7) H 09/18/22 03:22 Lymph # (Auto) 2.4 10^3/uL (0.8-4.8) 09/18/22 03:22 Mcpherson # (Auto) 1.3 10^3/uL (0.2-0.9) H 09/18/22 03:22 Eos # (Auto) 0.4 10^3/uL (0.0-0.8) 09/18/22 03:22 Baso # (Auto) 0.1 10^3/uL (0.0-0.1) 09/18/22 03:22 Nucleated RBC % (auto) 0 % 09/18/22 03:22 Nucleated RBCs # 0.0 /100WBC 09/18/22 03:22 PT 14.10 SECONDS (12.1-14.9) 09/11/22 20:44 INR 1.06 (0.8-1.2) 09/11/22 20:44 APTT 52.1 SECONDS (23.9-36.7) H 09/15/22 05:31 Specimen Type Arterial 09/14/22 14:46 Sample Site Brachial, right 09/14/22 14:46 ABG pH 7.42 (7.35-7.45) 09/14/22 14:46 ABG pCO2 45.8 mmHg (35-45) H 09/14/22 14:46 ABG pO2 66.7 mmHg (80.0-100.0) L 09/14/22 14:46 ABG HCO3 29.3 mmol/L (22-26) H 09/14/22 14:46 ABG O2 Saturation 93.3 09/14/22 14:46 ABG Base Excess 3.9 mmol/L (-2.0-2.0) H 09/14/22 14:46 Reji Test N/a 09/14/22 14:46 A-a O2 Gradient 17.6 mmHg (5-10) H 09/14/22 14:46 Hematocrit 46.8 % (37-47) 09/14/22 14:46 Hgb O2 Saturation 92.2 % (95-100) L 09/14/22 14:46 Carboxyhemoglobin 0.5 %THgb (0.4-20.1) 09/14/22 14:46 Methemoglobin 0.8 % (0.4-1.5) 09/14/22 14:46 Total Hemoglobin 15.3 g/dL (12-16) 09/14/22 14:46 Sodium 131.0 mmol/L (131-143) 09/14/22 14:46 Potassium 3.9 mmol/L (3.5-5.0) 09/14/22 14:46 Glucose 180.0 mg/dL (70-115) H 09/14/22 14:46 Ionized Calcium 1.2 mmol/L (1.1-1.4) 09/14/22 14:46 O2 Delivery Device Nc 09/14/22 14:46 O2 Liters/Min 4.0 % 09/14/22 14:46 FiO2 36.0 % 09/14/22 14:46 Stitch Separator ID Amh 09/14/22 14:46 Sodium 128 mmol/L (136-145) L 09/18/22 03:22 Potassium 3.5 mmol/L (3.5-5.1) 09/18/22 03:22 Chloride 88 mmol/L (98-107) L 09/18/22 03:22 Carbon Dioxide 28 mmol/L (22-29) 09/18/22 03:22 Anion Gap 15.5 (5-19) 09/18/22 03:22 BUN 26 mg/dL (8-23) H 09/18/22 03:22 Creatinine 1.1 mg/dL (0.5-0.9) H 09/18/22 03:22 GFR Calculation Not Reportable 09/18/22 03:22 Glucose 206 mg/dL (65-115) H 09/18/22 03:22 POC Glucose 268 mg/dL (70-110) H 09/18/22 06:28 Calculated Osmolality 277 mOsm/kg (285-295) L 09/18/22 03:22 Lactate 2.1 mmol/L (0.5-2.2) 09/11/22 20:44 Uric Acid 6.5 mg/dL (2.4-5.7) H 09/13/22 04:38 Calcium 9.2 mg/dL (8.5-10.5) 09/18/22 03:22 Phosphorus 3.0 mg/dL (2.5-4.5) 09/18/22 03:22 Magnesium 1.9 mg/dL (1.7-2.3) 09/18/22 03:22 Total Bilirubin 0.4 mg/dL (0.15-1.2) 09/18/22 03:22 AST 19 U/L (0-32) 09/18/22 03:22 ALT 9 U/L (0-33) 09/18/22 03:22 Alkaline Phosphatase 50 U/L (35-105) 09/18/22 03:22 Creatine Kinase 45 U/L (26-192) 09/14/22 01:33 Troponin T Baseline 39 ng/L (0-10) H 09/14/22 11:20 Troponin T 120 Minute 43.59 ng/L (0-10) H 09/14/22 13:20 Delta Troponin T 4.59 ABS# (0-10) 09/14/22 13:20 Troponin T Hi Sens 6Hr 46.35 ng/L (0-10) H 09/14/22 16:57 Troponin T Hi Sens 6Hr Delta 7.35 ng/L (0-12) 09/14/22 16:57 C-Reactive Protein 142.5 mg/L (0.0-4.9) H 09/18/22 03:22 NT-Pro-B Natriuret Pep 359 pg/mL (0-125) H 09/17/22 04:24 Total Protein 6.2 g/dL (6.6-8.7) L 09/18/22 03:22 Albumin 2.7 g/dL (3.5-5.2) L 09/18/22 03:22 Globulin 3.5 g/dL (1.3-4.6) 09/18/22 03:22 Triglycerides 163 mg/dL (0-150) H 09/11/22 23:06 Amylase 104 U/L (28-100) H 09/14/22 01:33 Lipase 80 U/L (13-60) H 09/14/22 01:33 25-OH Vitamin D Total 30 ng/mL (30-100) 09/14/22 01:33 1,25 Dihydroxy Vit D2 36 pg/mL 09/13/22 09:10 1,25 Dihydroxy Vit D3 <8 pg/mL 09/13/22 09:10 Procalcitonin 0.42 ng/mL (0-0.5) 09/18/22 03:22 TSH 1.73 uIU/mL (0.27-4.20) 09/14/22 11:20 Urine Color Yellow (Yellow) 09/12/22 19:30 Urine Appearance Hazy (CLEAR) A 09/12/22 19:30 Urine pH 5 (5-7) 09/12/22 19:30 Ur Specific [place] 1.015 (1.005-1.030) 09/12/22 19:30 Urine Protein 1+ (Negative) H 09/12/22 19:30 Urine Glucose (UA) 1+ (Normal) H 09/12/22 19:30 Urine Ketones 1+ (Negative) H 09/12/22 19:30 Urine Blood Neg (Negative) 09/12/22 19:30 Urine Nitrate Negative (Negative) 09/12/22 19:30 Urine Bilirubin Neg (Negative) 09/12/22 19:30 Urine Urobilinogen Norm mg/dL (Negative) 09/12/22 19:30 Ur Leukocyte Esterase Negative (Negative) 09/12/22 19:30 Urine RBC None /hpf (0-2) 09/12/22 19:30 Urine WBC None /hpf (0-5) 09/12/22 19:30 Ur Squamous Epith Cells 0-4 /hpf (0-5) H 09/12/22 19:30 Amorphous Sediment Not Reportable 09/12/22 19:30 Urine Bacteria 4+ /hpf (NONE) H 09/12/22 19:30 Ur Random Sodium 35 mmol/L 09/13/22 16:15 Ur Random Sodium 37 mmol/L 09/13/22 16:15 Ur Random Potassium 38 mmol/L 09/13/22 16:15 Ur Random Chloride 59 mmol/L 09/13/22 16:15 Ethyl Alcohol < 10 mg/dL (0-10) 09/11/22 23:06 Ethyl Alcohol Cancelled 09/11/22 23:06 Serum Ketones Negative (Negative) 09/13/22 09:10 Hepatitis C Antibody Non-reactive (Nonreactive) 09/13/22 09:10 Vitals Last Vital Signs Temp 98 F 09/18/22 08:00 Pulse 67 09/18/22 08:00 Resp 20 H 09/18/22 08:00 BP 152/81 09/18/22 08:00 Pulse Ox 91 09/18/22 08:00 O2 Del Method 09/18/22 07:38 O2 Flow Rate 1 09/17/22 07:29 Discharge Plan Discharge Patient Disposition: Home Condition: Stable Prescriptions: New amoxicillin-pot clavulanate 875-125 mg Tablet 1 tab PO BID 5 Days Qty: 10 0RF Eliquis 5 mg Tablet 5 mg PO Q12H 30 Days Qty: 60 0RF Rx Instructions: 340b Lantus Solostar U-100 Insulin 100 unit/mL (3 mL) insulin pen 5 unit SUBCUT Q12H 30 Days Qty: 3 0RF Novolog Flexpen U-100 Insulin 100 unit/mL (3 mL) insulin pen See Rx Instructions .ROUTE .COMPLEX Qty: 15 0RF Rx Instructions: inject subcut, 3 times daily after meals, based on sliding scale provided (DME) glucometer testing kit See Rx Instructions .Route .MEDSUPPLY Qty: 1 0RF Rx Instructions: Glucometer testing kit, check blood sugars 3 times daily -Lancets #100, strips #100 Continued diclofenac sodium 1 % gel 4 g TOPICAL QID PRN (Reason: pain) Qty: 300 5RF (DME) BD Luer-Beth Syringe 3 mL 25 gauge x 1 syringe See Rx Instructions .ROUTE .COMPLEX Qty: 1 5RF Dose Instruction: USE ONE SYRINGE MONTHLY TO INJECT B12 Rx Instructions: USE ONE SYRINGE MONTHLY TO INJECT B12 ergocalciferol (vitamin D2) 1,250 mcg (50,000 unit) capsule See Rx Instructions .ROUTE .COMPLEX Qty: 4 5RF Dose Instruction: TAKE ONE CAPSULE BY MOUTH WEEKLY Rx Instructions: TAKE ONE CAPSULE BY MOUTH WEEKLY gabapentin 800 mg tablet 800 mg PO TID Qty: 90 5RF cyanocobalamin (vitamin B-12) 1,000 mcg/mL solution 1,000 mcg SUBCUT Q30D Qty: 1 5RF Rx Instructions: FOR 5 MONTHS ondansetron HCl 4 mg tablet 4 mg PO Q8H PRN (Reason: Nausea And Vomiting) Qty: 30 1RF fluticasone propionate [Flonase Allergy Relief] 50 mcg/actuation spray,suspension 1 spray intranasal BID Qty: 16 5RF Rx Instructions: administer into each nostril fenofibrate 160 mg tablet 160 mg PO DAILY Qty: 30 5RF metoprolol tartrate 50 mg tablet 100 mg PO BID Qty: 120 3RF magnesium oxide 400 mg (241.3 mg magnesium) tablet 400 mg PO DAILY Qty: 30 5RF simvastatin 40 mg tablet 40 mg PO DAILY famotidine 20 mg tablet 20 mg PO 2XD metformin 1,000 mg tablet 1,000 mg PO 2XD Fish Oil 300-1,000 mg Capsule 1 cap PO DAILY oxycodone 15 mg tablet 15 mg PO Q4H PRN (Reason: Pain) levalbuterol tartrate 45 mcg/actuation HFA aerosol inhaler 2 puff INHALATION Q6H PRN (Reason: Shortness Of Breath) oxycodone 10 mg tablet 10 mg PO QID PRN (Reason: Pain) Held bumetanide 1 mg tablet 1 mg PO DAILY PRN (Reason: Edema) Qty: 30 5RF Hold Instructions: Resume on 09/26/22. old until u see primay care Discontinued lisinopril 40 mg tablet 40 mg PO BID Qty: 60 5RF Discharge Orders: Discharge Order (Routine); Ordered 09/18/22 Ordered By: Junior Jordan Referrals: Abdon Gtz MD [Physician] - 1 week (Please call Monday to schedule a follow up appoinment) Tre Barron MD [Referring] - 1 month (Please call Monday to schedule a follow up appointment amanda for pancreatitis ) Junior Jordan MD [Hospitalist] - 1-3 days (Please call Monday to schedule a follow up appointment.) Sheri Black FNP [Primary Care Provider] - (Please call Monday to schedule a follow up appointment.) Discharge Diet: Diabetic Discharge Activity: Resume usual activity Patient Instructions: Amoxicillin/Clavulanate Potassium (By mouth), Insulin Aspart, Recombinant (By injection), Insulin Glargine (By injection), Apixaban (By mouth) (Eliquis), Pancreatitis (DC), Hypoglycemia in a Person with Diabetes (DC), Type 2 Diabetes in Adults: New Diagnosis (GEN), DASH Eating Plan (DC), GI (Gastrointestinal) Soft Diet (DC), What to Do if Your Blood Sugar is Low (DC), How to Check your Blood Sugar (DC), Type 2 Diabetes Management for Adults (DC), Opioid Safety Activity Restrictions/Additional Instructions: -For your pancreatitis, slowly advance diet, avoid fatty foods, avoid high calorie dense foods, avoid sugary foods if you have recurrent abdominal pain go to the emergency room -Follow-up with general surgery in 1 to 2 weeks -I have sent off a referral for gastroenterology for consideration of HIDA scan and or ERCP procedure -Please monitor your blood sugars closely -Monitor your blood sugars 3 times daily as after meals -Please record your blood sugars, and a blood sugar log -For your NovoLog -Please inject blood sugar after meals based on sliding scale provided -Do not inject insulin if you do not eat as hypoglycemia kills -This is a NovoLog sliding scale -Insulin sliding ?fingerstick? Insulin ?141-180?2 units/sq 181-220?4 units/sq ?221-260?6 units/sq ?261-300?8 units/sq ?301-350 10 units/sq ?351-400 12 units/sq > 400? 14 units/sq -If your blood sugar is greater than 500 go to the emergency room -If your blood sugar is less than 60 or at anytime you feel lightheaded or dizzy or diaphoretic or have chest palpitations check your blood sugar, and eat a hard candy or drink orange juice and go immediately to the emergency room -Remember hypoglycemia kills, so if his blood sugar is less than 60 we have to increase it by taking in a sugary meal such as a hard candy or orange juice and go to the emergency room -If you have any questions please call us where here to help -I discharged on Lantus 5 units twice daily -Please limit fluid intake between 1 to 2 L a day -For your atrial fibrillation, I have discharged on Eliquis -Please monitor for bloody or black stools if so go to the emergency room Discharge Attestations Time Spent in Discharge Care*: less than 30 min Quality Metrics Clinical Quality Measures [ No reported AMI, CVA or VTE this stay] Coding Level of Care Code Acute Chg FW DC note Exam Detailed Diagnoses Pancreatitis K85.90 Cholecystitis K81.9 Essential (primary) hypertension I10 Type 2 diabetes mellitus without complications E11.9 Diabetes mellitus long term care phlebotomist insulin use: without fci use Pneumonia J18.9 Acute encephalopathy G93.40 Atrial fibrillation with RVR I48.91
[2022-09-18] MEDS: insulin glargine 100 units/1 mL 5 UNIT SUBCUT ×2 (10:55→21:09)
[2022-09-18 11:03] LABS: Estmated Average Glucose 154
--- NOTE | 2022-09-18 11:08 | PM.PN ---
Subjective Subjective: doing well Vitals/I&O/Wt Last Vital Signs Temp 98 F 09/18/22 08:00 Pulse 67 09/18/22 08:00 Resp 20 H 09/18/22 08:00 BP 152/81 09/18/22 08:00 Pulse Ox 92 09/18/22 10:36 O2 Del Method 09/18/22 07:38 O2 Flow Rate 1 09/17/22 07:29 09/17/22 09/18/22 09/18/22 23:59 06:59 14:59 Intake Total 360 / 360 Output Total 500 / 500 Balance -140 / -140 Physical Exam Const: COMMON NORMALS: no acute distress Resp: COMMON NORMALS: normal respiratory effort and No retractions Cardio: COMMON NORMALS: regular rate and regular rhythm RATE: regular rate RHYTHM: regular rhythm GI: COMMON NORMALS: Normal to inspection, nondistended, normoactive bowel sounds present Extremity: COMMON NORMALS: no pedal edema Psych: COMMON NORMALS: mental status grossly normal Urinary Catheter Management: Iraheta: Cath Placed During This Visit: yes, but has since been removed by the nurse Reason for Continuing Indwelling Catheter: Decision to DC Catheter Urinary Catheter Date of Insertion: 09/12/22 Urinary Catheter Time of Insertion: 21:00 Date Urinary Catheter Removed: 09/18/22 Time Urinary Catheter Discontinued: 10:43 Data : 09/18/22 03:22 09/18/22 03:22 A&P Assessment and plan (1) NOEMI (acute kidney injury): [place] [address] Progress Note Signed Patient: Eelna Salinas MR#: [id number] : 1950 Age/Sex: 72 / F ADM Date: 09/12/22 Loc: MEDSURG? Room/Bed: [facility] Encounter Date: 09/17/[address]: Junior Jordan MD Report Number: [id number] Subjective Subjective:?? No new complaints Vitals/I&O/Wt Last Vital Signs Temp ?97.7 F ?09/17/22 11:58 Pulse ?66 ?09/17/22 11:58 Resp ?17 ?09/17/22 11:58 BP ?123/72 ?09/17/22 11:58 Pulse Ox ?92 ?09/17/22 11:58 O2 Del Method ? ?09/17/22 11:58 O2 Flow Rate ?1 ?09/17/22 07:29 ? 09/16/22 09/17/22 09/17/22 ? 22:59 06:59 14:59 Intake Total 350 / 650 290 / 940 163.542 / 163.542 Output Total ? 800 / 1900 ? Balance 350 / -450 -510 / -960 163.542 / 163.542 Physical Exam Const:?? COMMON NORMALS: no acute distress Resp:?? COMMON NORMALS: normal respiratory effort and No retractions Cardio:?? COMMON NORMALS: regular rate? RATE: regular rate GI:?? COMMON NORMALS: Normal to inspection, nondistended, normoactive bowel sounds present Extremity:?? COMMON NORMALS: no pedal edema Psych:?? COMMON NORMALS: mental status grossly normal Urinary Catheter Management:?? Iraheta: Cath Placed During This Visit: yes Reason for Continuing Indwelling Catheter: Acute Urinary Retention or Obstruction Urinary Catheter Date of Insertion: 09/12/22 Urinary Catheter Time of Insertion: 21:00 ? Data : 09/17/22 04:24? 09/17/22 04:24? Micro: Microbiology ?09/12/22 04:50 Blood Culture - Final ?Blood ?? NO GROWTH AFTER 5 DAYS ?09/12/22 04:53 Blood Culture - Final ?Blood ?? NO GROWTH AFTER 5 DAYS ?09/15/22 17:00 MRSA Culture - Final ?Nose ? A&P Assessment and plan (1) NOEMI (acute kidney injury): Plan [address] [address] Progress Note SignedPatient: Elena Salinas MR#: [id number] : 1950 Age/Sex: 72 / F ADM Date: 09/12/22 Loc: MEDSURG? Room/Bed: [facility] Encounter Date: 09/16/[address]: Junior Jordan MD Report Number: [id number] Subjective Subjective:??? No new complaints Vitals/I&O/Wt Last Vital Signs Temp? ?99.8 F H? ?09/16/22 07:49 Pulse? ?65? ?09/16/22 08:00 Resp? ?16? ?09/16/22 10:28 BP? ?167/85? ?09/16/22 07:49 Pulse Ox? ?98? ?09/16/22 08:00 O2 Del Method?09/16/22 08:00 O2 Flow Rate? ?2? ?09/16/22 08:00 ?? 09/15/22? 09/16/22? 09/16/22 ?? 22:59? 06:59? 14:59 Intake Total? 540 / 1090? 50 / 1140? ? Output Total? 1450 / 1450? 500 / 1949? ? Balance? -910 / -360? -450 / -810? ? Physical Exam Narrative:??? awake alert Const:??? COMMON NORMALS: no acute distress and average body habitus HENMT:??? COMMON NORMALS: normocephalic? HEAD & SCALP: normocephalic Eye:??? COMMON NORMALS: Equal, round and reactive pupils present? PUPIL: Yes Equal, round and reactive pupils present Neck/C-Spine:??? COMMON NORMALS: supple Chest:??? COMMONS NORMALS: normal inspection of the chest Cardio:??? COMMON NORMALS: regular rate and regular rhythm? RATE: regular rate? RHYTHM: regular rhythm? OTHER: per report Extremity:??? COMMON NORMALS: no pedal edema Urinary Catheter Management:??? Iraheta: Cath Placed During This Visit: yes Reason for Continuing Indwelling Catheter: Acute Urinary Retention or Obstruction Urinary Catheter Date of Insertion: 09/12/22 Urinary Catheter Time of Insertion: 21:00 ? [address] [address] Progress Note SignedPatient: Elena Salinas MR#: [id number] : 1950 Age/Sex: 72 / F ADM Date: 09/12/22 Loc: MEDSURG? Room/Bed: [facility] Encounter Date: 09/16/[address]: Junior Jordan MD Report Number: [id number] Subjective Subjective:??? No new complaints Vitals/I&O/Wt Last Vital Signs Temp? ?99.8 F H? ?09/16/22 07:49 Pulse? ?65? ?09/16/22 08:00 Resp? ?16? ?09/16/22 10:28 BP? ?167/85? ?09/16/22 07:49 Pulse Ox? ?98? ?09/16/22 08:00 O2 Del Method?09/16/22 08:00 O2 Flow Rate? ?2? ?09/16/22 08:00 ?? 09/15/22? 09/16/22? 09/16/22 ?? 22:59? 06:59? 14:59 Intake Total? 540 / 1090? 50 / 1140? ? Output Total? 1450 / 1450? 500 / 1950? ? Balance? -910 / -360? -450 / -810? ? Physical Exam Narrative:??? awake alert Const:??? COMMON NORMALS: no acute distress and average body habitus HENMT:??? COMMON NORMALS: normocephalic? HEAD & SCALP: normocephalic Eye:??? COMMON NORMALS: Equal, round and reactive pupils present? PUPIL: Yes Equal, round and reactive pupils present Neck/C-Spine:??? COMMON NORMALS: supple Chest:??? COMMONS NORMALS: normal inspection of the chest Cardio:??? COMMON NORMALS: regular rate and regular rhythm? RATE: regular rate? RHYTHM: regular rhythm? OTHER: per report Extremity:??? COMMON NORMALS: no pedal edema Urinary Catheter Management:??? Iraheta: Cath Placed During This Visit: yes Reason for Continuing Indwelling Catheter: Acute Urinary Retention or Obstruction Urinary Catheter Date of Insertion: 09/12/22 Urinary Catheter Time of Insertion: 21:00 ? Data : 09/16/22 07:42? 09/16/22 07:42? A&P Assessment and plan (1) NOEMI (acute kidney injury): Plan (1) NOEMI (acute kidney injury): 72 yr old female obesity, htn, dm here w/ pancreatitis/ cholecystitis 1. NOEMI-? baseline cr 0.8 in 2021- cr socrates to 1.6 on aug 31.? Admission cr on 09-11 was 1.3 mg/dl.? Cr peaked at? 2.2 mg/dl s/p iv contrast -NOEMI- likely ATN, w/ CI- NOEMI.? Pt was not eating for a couple of days and was on bumex, lisinopril, and metformin - Cr improved to 1.0 , UOP better -normal ck -no hydronephrosis on abd ct scan 2.? Hyponatremia-? from noemi - monitor w/ renal recovery ,Na 127 today , comtinue fluid restriction to 1500 ml/day 3. mild AGMA from NOEMI.? has improved 4.pancreatitis is improving 5 . meds reviewed seen and examined w/ RN- telehealth visit time spent 25+? min Attestations Medical Necessity Statement*: Patient requires hospitalization for pneumonia, pancreatitis, deconditioning, poor appetite, likely will be discharged in the next 24 hours Coding Level of Care Code Acute Inspector Tester Sorter for [facility] Diagnoses NOEMI (acute kidney injury) N17.9
[2022-09-18 11:50] LABS: Glucose Point of Care 343 mg/dL (70-110)
--- NOTE | 2022-09-18 13:24 | PM.PN ---
Subjective Subjective: Patient was seen this morning, overall she is doing well, plan was to discharge her today, however her pharmacy does not have Eliquis, and the pharmacy does not have glucometer testing kit for her blood sugars, we will safely discharge her tomorrow, do meds to beds with our pharmacy Vitals/I&O/Wt Last Vital Signs Temp 98 F 09/18/22 08:00 Pulse 74 09/18/22 11:26 Resp 18 09/18/22 11:26 BP 152/81 09/18/22 08:00 Pulse Ox 92 09/18/22 11:26 O2 Del Method 09/18/22 11:26 O2 Flow Rate 1 09/17/22 07:29 09/17/22 09/18/22 09/18/22 23:59 06:59 14:59 Intake Total 360 / 360 Output Total 500 / 500 Balance -140 / -140 Physical Exam Const: COMMON NORMALS: no acute distress and patient oriented x3 Resp: COMMON NORMALS: normal respiratory effort, No retractions, No use of accessory muscles and clear to auscultation bilaterally AUSCULTATION: clear to auscultation bilaterally Cardio: COMMON NORMALS: regular rate, regular rhythm, S1 normal heart sound present and S2 normal heart sound present RATE: regular rate RHYTHM: regular rhythm HEART SOUNDS: S1 normal heart sound present and S2 normal heart sound present GI: COMMON NORMALS: Normal to inspection, nondistended, normoactive bowel sounds present, non-tender and no masses Extremity: COMMON NORMALS: no clubbing, cyanosis or edema, no calf tenderness and no pedal edema Neuro: COMMON NORMALS: patient oriented x3 Psych: COMMON NORMALS: mental status grossly normal Urinary Catheter Management: Iraheta: Cath Placed During This Visit: yes, but has since been removed by the nurse Reason for Continuing Indwelling Catheter: Decision to DC Catheter Urinary Catheter Date of Insertion: 09/12/22 Urinary Catheter Time of Insertion: 21:00 Date Urinary Catheter Removed: 09/18/22 Time Urinary Catheter Discontinued: 10:43 Data : 09/18/22 03:22 09/18/22 03:22 A&P Assessment and plan (1) Pancreatitis: Repeat CT showed Liver: Normal liver size without cirrhosis. Probable mild steatosis. Gallbladder and bile ducts: Gallbladder is somewhat distended which may be related to prolonged fasting versus cholestasis. Hyperdense gallbladder content suggesting proteinaceous material/sludge and probable tiny calculi. No obvious imaging signs of acute cholecystitis or bile duct dilatation. Clinical correlation should be obtained. Sonographic follow-up may also be considered if clinically indicated. Pancreas: Diffuse peripancreatic fat stranding and trace non loculated regional fluid suggestive of acute pancreatitis. Pancreatic necrosis can not be assessed without IV contrast. No large drainable regional fluid collection or pseudocyst formation. No obvious pancreatic ductal dilatation. Spleen: Normal spleen size with calcified splenic granulomas. Adrenal glands: Normal. No mass. Kidneys and ureters: No hydronephrosis or large regional collection. Stomach and bowel: Small to moderate colonic stool burden. Colonic diverticulosis. Appendix: No evidence of appendicitis. Intraperitoneal space: Unremarkable. No free air. No significant fluid collection. Vasculature: [id number] dilatation of main pulmonary artery measuring 3.8 cm, unchanged. Clinical correlation for pulmonary hypertension should be obtained. No aortic aneurysm. Lymph nodes: Nonenlarged mediastinal hilar lymph nodes consistent with chronic granulomatous disease. No enlarged abdominopelvic adenopathy otherwise. Urinary bladder: Unremarkable as visualized. Reproductive: Unremarkable as visualized. Bones/joints: Multilevel vertebral disc degeneration and endplate osteophytes. No acute osseous findings otherwise. Soft tissues: Images are somewhat degraded due to external streak artifacts arising from patient's arm(s). Advance to GI soft diet Continue home oxycodone 15 mg every 6 hours scheduled, with oxycodone 10 mg every 4 hours as needed this is her home medication Increase her gabapentin to her home dose of 800 3 times daily Monitor for abdominal pain Zofran and Reglan for nausea vomiting, add on promethazine for nausea vomiting General surgery consulted Check TG 163 and alcohol levels within normal limits. Denies any recent chanegs in her medications. It appears multiple medications were changed on her last visit in Jun 2022, however patient has not made these changes. -Likely discharge tomorrow (2) Cholecystitis: General surgery on consult De-escalate to Augmentin (3) Essential (primary) hypertension: (4) Type 2 diabetes mellitus without complications: Insulin sliding scale. Hold OHAs, Qualifiers: Diabetes mellitus skilled nursing insulin use: without local intermodal truck driver use Qualified Code(s): E11.9 - Type 2 diabetes mellitus without complications (5) Pneumonia: -Evidence of healthcare associated pneumonia -Elevated CRP, Pro-Tyler -Lungs: Bibasilar airspace consolidations in the posterior lung bases which may represent atelectasis versus superimposed pneumonia. --De-escalate antibiotics to Augmentin -DuoNeb -PT OT -Up out of bed, ambulating -Incentive spirometer, flutter valve -On 2 L oxygen (6) Acute encephalopathy: -Resolved - Likely secondary to pancreatitis, now pneumonia, also associate with morphine use, narcotics -CT head no acute findings -On antibiotics as above -Morphine on hold -Continue to monitor (7) Atrial fibrillation with RVR: - A. fib with RVR, -Still in A. fib, rate is well controlled -Managed on therapeutic heparin, switch to therapeutic Lovenox, now discontinued we will switch to Eliquis -Continue metoprolol Plan NOEMI creatinine 1.1monitor possible third spacing from acute pancreatitis Fluid overload, r resolved Hyponatremia, continue to monitor, likely sec to dehydration, encourage p.o. intake avoid fluids due to concerns for fluid overload Chronic pain, continue home narcotics, monitor for respiratory depression Poor appetite, encourage p.o. intake Deconditioning, PT OT Attestations Medical Necessity Statement*: Will discharge tomorrow Coding Level of Care Code Acute Conveyor System Dispatcher for [facility] Fwd Diagnoses Pancreatitis K85.90 Cholecystitis K81.9 Essential (primary) hypertension I10 Type 2 diabetes mellitus without complications E11.9 Diabetes mellitus local intermodal truck driver insulin use: without local intermodal truck driver use Pneumonia J18.9 Acute encephalopathy G93.40 Atrial fibrillation with RVR I48.91
[2022-09-18 17:11] LABS: Glucose Point of Care 360 mg/dL (70-110)
[2022-09-18 20:49] LABS: Glucose Point of Care 320 mg/dL (70-110)
[2022-09-19] VITALS (7 sets, daily range): BP systolic 107–120; BP diastolic 69–73; PULSE 63–82; RESP 16–18; TEMP 36.7–36.8; O2SAT 90–94
[2022-09-19] MEDS: ipratropium-albuterol 3 mL Neb INHALATION ×2 (00:05→08:01)
[2022-09-19] MEDS: oxyCODONE 5 mg IR Tab/Cap 15 MG PO ×2 (04:29→10:40)
[2022-09-19] MEDS: gabapentin 400 mg Capsule 800 MG PO (04:30)
[2022-09-19] MEDS: metoprolol tartrate 50 mg Tablet 100 MG PO (04:30)
[2022-09-19 05:39] LABS: Basophils % 0.4 %; Eosinophils # 0.5 10^3/uL (0.0-0.8); Eosinophils % 4.7 %; Hematocrit 39.5 % (37.0-47.0); Hemoglobin 13.2 g/dL (11.5-15.3); Lymphocytes # 2.3 10^3/uL (0.8-4.8); Lymphocytes % 19.9 %; Mean Corpuscular HGB Conc 33.4 g/dL (30.0-36.0); Mean Corpuscular Hemoglobin 30.1 pg (28.0-34.0); Mean Corpuscular Volume 90.2 fl (81-99); Mean Platelet Volume 10.6 fL (7.4-10.4); Monocytes % 8.4 %; Neutrophils # 7.09 10^3/uL (1.8-7.7); Neutrophils % 62.7 %; Nucleated Red Blood Cells % 0 %; Platelet Count 308 10^3/cmm (130-400); Red Blood Count 4.38 10^6/uL (4.1-5.3); Red Cell Distribution Width 13.1 % (12.1-15.1); White Blood Count 11.3 10^3/uL (4.0-10.0)
[2022-09-19 06:07] LABS: Alanine Aminotransferase 13 U/L (0-33); Albumin Level 2.8 g/dL (3.5-5.2); Alkaline Phosphatase 59 U/L (35-105); Blood Urea Nitrogen 27 mg/dL (8-23); Calcium 9.5 mg/dL (8.5-10.5); Carbon Dioxide 28 mmol/L (22-29); Chloride 92 mmol/L (98-107); Globulin 3.5 g/dL (1.3-4.6); Glucose 306 mg/dL (65-115); Osmolality Calculated 285 mOsm/kg (285-295); Phosphorus 2.9 mg/dL (2.5-4.5); Sodium 129 mmol/L (136-145); Total Bilirubin 0.3 mg/dL (0.15-1.2); Total Protein 6.3 g/dL (6.6-8.7)
[2022-09-19 06:09] LABS: Aspartate Amino Transferase 22 U/L (0-32)
[2022-09-19 06:42] LABS: Glucose Point of Care 294 mg/dL (70-110)
[2022-09-19] MEDS: amoxicillin-clav 875-125 mg Tablet 1 TAB PO (07:48)
[2022-09-19] MEDS: insulin glargine 100 units/1 mL 5 UNIT SUBCUT (07:50)
[2022-09-19] MEDS: insulin lispro 100 unit/1 mL SUBCUT (07:51)
--- NOTE | 2022-09-19 09:38 | P.PN_ITS ---
Subjective Subjective: feelw well. wants to go home. no n/v/fc/adames/d/leg pains Medications: Reviewed: Yes Medication Review Details: Current Medications Acetaminophen (Acetaminophen 325 Mg Tablet) 650 mg PO Q6H PRN PRN Reason: Mild/Mod Pain Or Temp >/= 101 Last Admin: 09/14/22 02:35 Dose: 650 mg Albuterol Sulfate (Albuterol 2.5 Mg/3 Ml Neb) 2.5 mg INHALATION Q4H.RESPIRATORY PRN PRN Reason: SHORTNESS OF BREATH Albuterol/Ipratropium (Ipratropium-Albuterol 3 Ml Neb) 3 ml INHALATION Q4H.RESPIRATORY [facility] Last Admin: 09/19/22 08:01 Dose: 3 ml Amoxicillin/Clavulanate Potassium (Amoxicillin-Clav 875-125 Mg Tablet) 1 tab PO BID [facility]; Protocol Last Admin: 09/19/22 07:48 Dose: 1 tab Apixaban (Apixaban 5 Mg Tablet) 5 mg PO Q12H [facility] Last Admin: 09/18/22 21:09 Dose: 5 mg Denture Adhesive (Fixodent 39 Gm Tube) 1 applic DENTAL PRN PRN PRN Reason: denture adhesive Last Admin: 09/17/22 05:38 Dose: 1 applic Dextrose (Dextrose 50% Syringe 50 Ml) 25 ml IVP ONCE PRN; Protocol PRN Reason: hypoglycemia protocol Dextrose (Dextrose 50% Syringe 50 Ml) 50 ml IVP PRN PRN; Protocol PRN Reason: hypoglycemia protocol Famotidine (Famotidine 20 Mg/2 Ml Inj) 20 mg IVP Q12H [facility] Last Admin: 09/18/22 22:22 Dose: Not Given Gabapentin (Gabapentin 400 Mg Capsule) 800 mg PO Q8H [facility] Last Admin: 09/19/22 04:30 Dose: 800 mg Glucagon (Glucagon 1 Mg/Ml Inj 1 Ml) 1 mg IM ONCE PRN; Protocol PRN Reason: Adult Acute Hypoglycemia Prot. Dextrose (D5w) 500 mls @ 100 mls/hr IV ONCE PRN; Protocol PRN Reason: Adult Acute Hypoglycemia Prot Insulin Glargine (Insulin Glargine 100 Units/1 Ml) 5 unit SUBCUT 0800,2000 [facility] Last Admin: 09/19/22 07:50 Dose: 5 unit Insulin Human Lispro (Insulin Lispro 100 Unit/1 Ml) 0 unit SUBCUT WM&BEDTIME [facility]; Protocol Last Admin: 09/19/22 07:51 Dose: 10 unit Lanolin (Lanolin Oint 7 Gm) 1 applic TOPICAL PRN PRN PRN Reason: DRYNESS Last Admin: 09/12/22 23:55 Dose: 1 applic Metoclopramide HCl (Metoclopramide 5 Mg/Ml Sdv 2 Ml) 5 mg IVP Q6H PRN PRN Reason: NAUSEA AND VOMITING Last Admin: 09/16/22 10:32 Dose: 5 mg Metoprolol Tartrate (Metoprolol Tartrate 50 Mg Tablet) 100 mg PO Q12H [facility] Last Admin: 09/19/22 04:30 Dose: 100 mg Naloxone HCl (Naloxone 0.4 Mg/Ml Sdv) 0.1 mg IVP Q2M PRN PRN Reason: RESPIRATORY RATE < 8/MIN Ondansetron HCl (Ondansetron 2 Mg/Ml Sdv 2 Ml) 4 mg IVP Q8H PRN PRN Reason: vomiting, or N/V if npo Last Admin: 09/18/22 04:44 Dose: 4 mg Oxycodone HCl (Oxycodone 5 Mg Ir Tab/Cap) 15 mg PO Q6H [facility] Last Admin: 09/19/22 04:29 Dose: 15 mg Oxycodone HCl (Oxycodone 5 Mg Ir Tab/Cap) 10 mg PO Q4H PRN PRN Reason: Pain Last Admin: 09/18/22 14:19 Dose: 10 mg Promethazine HCl (Promethazine 25 Mg/Ml Sdv 1 Ml) 12.5 mg IM Q6H PRN PRN Reason: NAUSEA Last Admin: 09/16/22 11:32 Dose: 12.5 mg Vitals/I&O/Wt Last Vital Signs Temp 98.2 F 09/19/22 07:45 Pulse 82 09/19/22 08:04 Resp 16 09/19/22 08:00 BP 107/73 09/19/22 07:45 Pulse Ox 90 09/19/22 08:00 O2 Del Method 09/19/22 08:00 O2 Flow Rate 1 09/17/22 07:29 09/18/22 09/19/22 09/19/22 22:59 06:59 14:59 Intake Total 720 / 1320 300 / 1620 Balance 720 / 820 300 / 1120 Physical Exam Narrative: obese female in bed,comfortable, NARD on nc02 vs noted heent- nc/at, eomi, anicteric neck supple lungs crackles b/l bases heart RRR, abd soft, less tender, + bs ext - no leg edema neuro- a,a, o x 3 Urinary Catheter Management: Iraheta: Cath Placed During This Visit: yes, but has since been removed by the nurse Reason for Continuing Indwelling Catheter: Decision to DC Catheter Urinary Catheter Date of Insertion: 09/12/22 Urinary Catheter Time of Insertion: 21:00 Date Urinary Catheter Removed: 09/18/22 Time Urinary Catheter Discontinued: 10:43 Data : 09/19/22 05:20 09/19/22 05:20 A&P Assessment and plan (1) NOEMI (acute kidney injury): 72 yr old female obesity, htn, dm here w/ pancreatitis/ cholecystitis 1. NOEMI- baseline cr 0.8 in 2021- cr socrates to 1.6 on aug 31. Admission cr on 09-11 was 1.3 mg/dl. Cr socrates to2.2 mg/dl s/p iv contrast -NOEMI- likely ATN, w/ CI- NOEMI. Pt was not eating for a couple of days and was on bumex, lisinopril, and metformin - u/a - has bacturia- no wbc -cr improved -normal ck -no hydronephrosis on abd ct scan 2. hyponatremia- from noemi - monitor w/ renal recovery and on lasix- fluid restrict, 3.pancreatitis has improved 4.. meds reviewed seen and examined w/ RN- telehealth visit time spent 25 mi outpt renal f/un Plan see above Attestations Medical Necessity Statement*: renal okay for d/c w/ outpt renal f/u Time Spent in Patient Care: 16 - 35 minutes (>than 50% of time spent in counselling and/or direct pt care on unit) . Coding Level of Care Code Acute Creative Services Director for delmar Blackmon Diagnoses NOEMI (acute kidney injury) N17.9
[2022-09-19] MEDS: apixaban 5 mg Tablet PO (10:39)
--- NOTE | 2022-09-19 10:41 | PC.SOCIAL ---
IMM Updated and reviewed w/ patient. Copy provided and Copy in chart dated and initialed.
== END 2022-09-19 10:58 | disposition home or self-care (01) | DRG 438 ==
LOC: ER 09-12 00:39 → MEDSURG 09-12 00:44
PROVIDERS: Internal Medicine Nephrology; Admitting Provider Student in an Organized Health Care Education/Training Program; Emergency Provider Emergency Medicine; PCP Nurse Practitioner Family; Visit Provider Family Medicine
DX: K85.90 Acute pancreatitis without necrosis or infection, unspecified (principal); G92.8 Other toxic encephalopathy; J18.9 Pneumonia, unspecified organism; E87.1 Hypo-osmolality and hyponatremia; K81.0 Acute cholecystitis; N17.9 Acute kidney failure, unspecified; E11.42 Type 2 diabetes mellitus with diabetic polyneuropathy; E78.5 Hyperlipidemia, unspecified; G89.29 Other chronic pain; Z79.891 Long term (current) use of opiate analgesic; Z87.440 Personal history of urinary (tract) infections; I10 Essential (primary) hypertension; K21.9 Gastro-esophageal reflux disease without esophagitis; E86.0 Dehydration; E66.9 Obesity, unspecified; Z68.36 Body mass index [BMI] 36.0-36.9, adult; E87.70 Fluid overload, unspecified; E87.6 Hypokalemia; I48.91 Unspecified atrial fibrillation; Z79.84 Long term (current) use of oral hypoglycemic drugs; E53.8 Deficiency of other specified B group vitamins; T40.2X5A Adverse effect of other opioids, initial encounter; M54.50 Low back pain, unspecified
CPT/HCPCS: 12345; 36415; 36416; 36600; 51702; 70450; 71045; 74176; 74177; 76705; 76770; 80048; 80051; 80053; 80307; 81001; 82009; 82150; 82306; 82330; 82436; 82550; 82652; 82805; 82962; 83036; 83605; 83690; 83735; 83880; 84100; 84133; 84145; 84300; 84443; 84478; 84484; 84550; 85025; 85049; 85610; 85730; 86140; 86803; 87040; 87086; 87641; 92523; 92526; 92610; 93005; 93308; 93970; 94640; 94760; 96365; 96372; 96375; 96376; 97110; 97116; 97161; 97166; 99285; J1170; J1644; J1650; J1815; J1940; J2270; J2405; J2543; J2550; J2765; J3370; J3490; J7030; J7050; Q3014; Q9967

== ENCOUNTER → 2022-09-27 15:10 | Outpatient (BNVA) | payer MEDICARE, MEDICAID, SELFPAY | PROVIDERS: PCP Nurse Practitioner Family; Visit Provider Nurse Practitioner Family | DX: E11.9 Type 2 diabetes mellitus without complications (principal); Z09 Encounter for follow-up examination after completed treatment for conditions other than malignant neoplasm; M25.50 Pain in unspecified joint; E55.9 Vitamin D deficiency, unspecified | CPT/HCPCS: 80053; 80061; 82306; 82607; 83735; 84439; 84443; 85025; 85651; 86038; 86140; 86200; 86431 ==

== ENCOUNTER → 2023-03-30 10:26 | Outpatient (BNVA) | payer MEDICARE, MEDICAID, SELFPAY | PROVIDERS: PCP Nurse Practitioner Family; Visit Provider Nurse Practitioner Family | DX: E11.9 Type 2 diabetes mellitus without complications (principal); E55.9 Vitamin D deficiency, unspecified; M19.031 Primary osteoarthritis, right wrist | CPT/HCPCS: 73110; 80053; 80061; 82043; 82306; 82607; 83036; 84443; 85025 ==

== ENCOUNTER → 2023-05-26 09:40 | Outpatient (BNVA) | payer MEDICARE, MEDICAID, SELFPAY | PROVIDERS: PCP Nurse Practitioner Family; Visit Provider Nurse Practitioner Family | DX: R79.89 Other specified abnormal findings of blood chemistry (principal) | CPT/HCPCS: 84439; 84480; 87070; 87075; 87077; 87184; 87205 ==

== ENCOUNTER → 2023-05-29 09:30 | Outpatient (BNVA) | payer MEDICARE, MEDICAID, SELFPAY | PROVIDERS: PCP Nurse Practitioner Family; Visit Provider Nurse Practitioner Family | DX: R79.89 Other specified abnormal findings of blood chemistry (principal) | CPT/HCPCS: 84443 ==

== ENCOUNTER → 2023-08-16 10:43 | Outpatient (BNVA) | payer MEDICARE, MEDICAID, SELFPAY | PROVIDERS: PCP Nurse Practitioner Family; Visit Provider Nurse Practitioner Family | DX: G89.29 Other chronic pain (principal); M54.41 Lumbago with sciatica, right side; M54.42 Lumbago with sciatica, left side; M47.896 Other spondylosis, lumbar region | CPT/HCPCS: 72100 ==

== ENCOUNTER → 2023-10-17 17:22 | Outpatient (BNVA) | payer MEDICARE, MEDICAID, SELFPAY | PROVIDERS: PCP Nurse Practitioner Family; Visit Provider Nurse Practitioner Family | DX: E11.9 Type 2 diabetes mellitus without complications (principal); E55.9 Vitamin D deficiency, unspecified | CPT/HCPCS: 80053; 80061; 82306; 82607; 83036; 83735; 84443; 85025 ==

== ENCOUNTER → 2024-02-06 13:15 | Outpatient (BNVA) | payer MEDICARE, MEDICAID, SELFPAY | PROVIDERS: PCP Nurse Practitioner Family; Visit Provider Nurse Practitioner Family | DX: E11.9 Type 2 diabetes mellitus without complications (principal); E55.9 Vitamin D deficiency, unspecified | CPT/HCPCS: 80053; 80061; 82306; 82607; 83036; 83735; 84443; 85025 ==

== ENCOUNTER 2024-02-07 17:21 | Emergency (ER) | payer MEDICARE, MEDICAID, SELFPAY ==
[2024-02-07 17:27] VITALS: BP 224/96; PULSE 59; RESP 16; TEMP 37; O2SAT 94; BMI 33.1
--- NOTE | 2024-02-07 17:27 | CTR_ITS ---
PROCEDURE INFORMATION: Exam: CT Maxillofacial Without Contrast Exam date and time: 02/07/2024 5:38 PM Age: 73 years old Clinical indication: Injury or trauma; Fall; Other: Bruising/swelling right eye TECHNIQUE: Imaging protocol: Computed tomography of the face without contrast. Radiation optimization: All CT scans at this facility use at least one of these dose optimization techniques: automated exposure control; mA and/or kV adjustment per patient size (includes targeted exams where dose is matched to clinical indication); or iterative reconstruction. COMPARISON: CT head wo con* [id number] 02/07/2024 5:38 PM RADIATION DOSE METRICS: Total DLP (mGy-cm): 647.9 FINDINGS: Orbital cavities: See Soft tissues finding. Bones/joints: No acute fracture. Paranasal sinuses: Normal. No air-fluid levels. Soft tissues: Large soft tissue hematoma overlying the right orbit with no underlying orbital fracture. The right globe appears intact. Dental: Periodontal disease. Dental caries. CT/CT facial bones wo con* [id number] IMPRESSION: Large soft tissue hematoma overlying the right orbit with no underlying orbital fracture. The right globe appears intact.
--- NOTE | 2024-02-07 17:27 | CTR_ITS ---
PROCEDURE INFORMATION: Exam: CT Head Without Contrast Exam date and time: 02/07/2024 5:38 PM Age: 73 years old Clinical indication: Injury or trauma; Fall; Other: Bruising/swelling right eye TECHNIQUE: Imaging protocol: Computed tomography of the head without contrast. Radiation optimization: All CT scans at this facility use at least one of these dose optimization techniques: automated exposure control; mA and/or kV adjustment per patient size (includes targeted exams where dose is matched to clinical indication); or iterative reconstruction. COMPARISON: CT head wo con* [id number] 09/14/2022 3:07 PM RADIATION DOSE METRICS: Total DLP (mGy-cm): 949.4 FINDINGS: Brain: Irregular hyperdensity within the sulcus of the right parietal lobe (series 3, image 33) which was not present on the prior head CT and thought possibly to represent a small subarachnoid hemorrhage. No mass effect or midline shift. Cerebral ventricles: No ventriculomegaly. Paranasal sinuses: Visualized sinuses are unremarkable. No fluid levels. Mastoid air cells: Visualized mastoid air cells are well aerated. Bones/joints: Unremarkable. No acute fracture. Soft tissues: Large soft tissue hematoma overlying the right orbit with no underlying orbital fracture. The right globe appears intact. CT/CT head wo con* [id number] IMPRESSION: 1. Irregular hyperdensity within the sulcus of the right parietal lobe (series 3, image 33) which was not present on the prior head CT and thought possibly to represent a small subarachnoid hemorrhage. No mass effect or midline shift. 2. Large soft tissue hematoma overlying the right orbit with no underlying orbital fracture. The right globe appears intact.
--- NOTE | 2024-02-07 17:28 | W.ED.FALL ---
HPI - Fall General: Chief Complaint: Head Injury Stated Complaint: Fall Time Seen by Provider: 02/07/24 17:21 Source: patient and EMS Mode of arrival: EMS Limitations: no limitations History of Present Illness: 73-year-old female states she had slipped while getting into a truck and fell and hit her head on the ground. This happened roughly at 5 PM. She denies any loss conscious does have a large hematoma to right forehead has a slight headache. She answers all my questions appropriately. She denies any neck pain. She is on Xarelto for A-fib. Associated symptoms-after fall: Reports headache(s); Denies abdominal pain, chest pain or neck pain Review of Systems Const: Denies: fever(s), chills, body aches or change in appetite Eyes: Denies: blurry vision ENMT: Denies: throat pain or dental pain Card: Denies: chest pain Resp: Denies: dyspnea GI: Denies: abdominal pain, nausea, vomiting or diarrhea Musc: Denies: neck pain or back pain Skin/Breast: Denies: rash Neuro: Reports: headache(s) PFSH ED PFSH: Medical History B12 deficiency Vitamin D deficiency GERD (gastroesophageal reflux disease) Atrial fibrillation Cholecystitis Abnormal transaminases Cholelithiasis Acute encephalopathy Acute cystitis Wound of right foot Type 2 diabetes mellitus without complications Obesity, unspecified Chronic osteoarthritis Bunion of right foot Encounter for counseling for care management of patient with chronic conditions and complex health needs using nurse-based model Seasonal allergies Gastro-esophageal reflux disease without esophagitis Neuropathy Dyslipidemia Chronic back pain Essential (primary) hypertension Type 2 diabetes mellitus Surgical History Hx of knee surgery (~10/2000) left Family History Mother Cancer colon Father Cancer pancreatic Family/Other CAD (coronary artery disease) Social History Smoking and tobacco/nicotine status: never used tobacco/nicotine Second hand smoke exposure: No Alcohol intake: never Substance/Drug Use: never Lives independently: Yes Household members: significant other Marital status: Life Partner Current occupational status: retired Current gender identity: Female Physical Exam Const: COMMON NORMALS: no acute distress, patient oriented x3 and healthy appearing HENMT: OTHER: Large hematoma to right forehead Eye: COMMON NORMALS: Equal, round and reactive pupils present and EOMs intact bilaterally PUPIL: Yes Equal, round and reactive pupils present Neck/C-Spine: COMMON NORMALS: full ROM and supple Chest: COMMONS NORMALS: normal inspection of the chest and normal palpation of entire chest wall Resp: COMMON NORMALS: normal respiratory effort, No retractions, No use of accessory muscles and clear to auscultation bilaterally AUSCULTATION: clear to auscultation bilaterally Cardio: COMMON NORMALS: regular rate, regular rhythm and No murmurs present (Cardio) RATE: regular rate RHYTHM: regular rhythm GI: COMMON NORMALS: Normal to inspection, nondistended, normoactive bowel sounds present, Soft to palpation, non-tender and no masses PALPATION: Yes Soft to palpation Extremity: COMMON NORMALS: normal to inspection and full ROM Neuro: COMMON NORMALS: patient oriented x3, moves all extremities and no focal motor deficits Psych: COMMON NORMALS: mental status grossly normal, Normal thought process present and cooperative THOUGHT PROCESS: Normal thought process present Skin: COMMON NORMALS: no rashes or lesions noted and no wounds GENERAL SKIN EXAM: no rashes or lesions noted Course Vital Signs: Vital signs: Vital Signs Temperature 98.6 F 02/07/24 17:27 Pulse Rate 59 L 02/07/24 17:27 Respiratory Rate 16 02/07/24 17:27 Blood Pressure 224/96 02/07/24 17:27 Pulse Oximetry 94 02/07/24 17:27 Oxygen Delivery Me thod Room Air 02/07/24 17:27 MDM - Fall Medical Decision Making Patient presents here with a subarachnoid hemorrhage from a fall and closed head injury. Have started on blood pressure meds due to her blood pressure down and she is on Xarelto we will give her Andexxa to reverse the Xarelto spoke to neurosurgery at [facility] who recommended that will transfer patient ER to ER for higher level of care with neurosurgery Medical Records I reviewed the patient's medical records. Lab Data I reviewed the patient's lab results. Radiology Impressions Face CT 02/07/24 17:27 IMPRESSION: Large soft tissue hematoma overlying the right orbit with no underlying orbital fracture. The right globe appears intact. Head CT 02/07/24 17:27 IMPRESSION: 1. Irregular hyperdensity within the sulcus of the right parietal lobe (series 3, image 33) which was not present on the prior head CT and thought possibly to represent a small subarachnoid hemorrhage. No mass effect or midline shift. 2. Large soft tissue hematoma overlying the right orbit with no underlying orbital fracture. The right globe appears intact. ADDENDUM: 02/07/24 2769 THIS REPORT CONTAINS FINDINGS THAT MAY BE CRITICAL TO PATIENT CARE. The findings were verbally communicated via telephone conference with SHAISTA Kay at 6:05 PM CDT on 02/07/2024. The findings were acknowledged and understood. All radiology interpretation(s) finalized by discharge Discharge Plan Discharge Patient Disposition: Xfer Short-Term Hosp Clinical Impression: Subarachnoid hematoma, Fall Condition: Stable Prescriptions: No Action mupirocin 2 % ointment 1 applic topical BID 10 Days Qty: 22 0RF Xarelto 10 mg tablet 10 mg PO DAILY Qty: 90 1RF Rx Instructions: for 35 days glipizide 10 mg tablet extended release 24hr 10 mg PO DAILY Qty: 90 1RF gabapentin 800 mg tablet See Rx Instructions .ROUTE .COMPLEX Qty: 270 1RF Dose Instruction: TAKE ONE TABLET BY MOUTH THREE TIMES DAILY Rx Instructions: TAKE ONE TABLET BY MOUTH THREE TIMES DAILY simvastatin 40 mg tablet 40 mg PO DAILY Qty: 90 1RF metoprolol tartrate 50 mg tablet See Rx Instructions .ROUTE .COMPLEX Qty: 360 1RF Dose Instruction: TAKE TWO TABLETS BY MOUTH TWICE DAILY Rx Instructions: TAKE TWO TABLETS BY MOUTH TWICE DAILY metformin 1,000 mg tablet 1,000 mg PO BID Qty: 180 1RF magnesium oxide 400 mg (241.3 mg magnesium) tablet See Rx Instructions .ROUTE .COMPLEX Qty: 90 1RF Dose Instruction: TAKE ONE TABLET BY MOUTH DAILY Rx Instructions: TAKE ONE TABLET BY MOUTH DAILY lisinopril 40 mg tablet 40 mg PO BID Qty: 180 1RF fenofibrate 160 mg tablet See Rx Instructions .ROUTE .COMPLEX Qty: 90 1RF Dose Instruction: TAKE ONE TABLET BY MOUTH DAILY Rx Instructions: TAKE ONE TABLET BY MOUTH DAILY famotidine 20 mg tablet 20 mg PO BID 30 Days Qty: 180 1RF diclofenac sodium 1 % gel See Rx Instructions .ROUTE .COMPLEX Qty: 300 5RF Dose Instruction: APPLY FOUR GRAMS TOPICALLY FOUR TIMES DAILY NEEDED FOR PAIN Rx Instructions: APPLY FOUR GRAMS TOPICALLY FOUR TIMES DAILY NEEDED FOR PAIN cyanocobalamin (vitamin B-12) 1,000 mcg/mL solution See Rx Instructions .ROUTE .COMPLEX Qty: 3 1RF Dose Instruction: INJECT 1,000 MCG UNDER SKIN EVERY 30 DAYS FOR FIVE MONTHS Rx Instructions: INJECT 1,000 MCG UNDER SKIN EVERY 30 DAYS amlodipine 5 mg tablet 5 mg PO QDAY 90 Days Qty: 90 1RF ergocalciferol (vitamin D2) 1,250 mcg (50,000 unit) capsule See Rx Instructions .ROUTE .COMPLEX Qty: 12 1RF Dose Instruction: TAKE ONE CAPSULE BY MOUTH WEEKLY Rx Instructions: TAKE ONE CAPSULE BY MOUTH WEEKLY ondansetron HCl 4 mg tablet 4 mg PO Q8H PRN (Reason: Nausea And Vomiting) Qty: 30 1RF Novolog FlexPen U-100 Insulin 100 unit/mL (3 mL) insulin pen See Rx Instructions .ROUTE .COMPLEX MDD 50 units Qty: 3 5RF Rx Instructions: Inject, subcut, 3 times daily, after meals, based on sliding scale provided (DME) BD Luer-Beth Syringe 3 mL 25 gauge x 1 syringe See Rx Instructions .ROUTE .COMPLEX Qty: 1 5RF Dose Instruction: USE ONE SYRINGE MONTHLY TO INJECT B12 Rx Instructions: USE ONE SYRINGE MONTHLY TO INJECT B12 Levemir FlexPen 100 unit/mL (3 mL) insulin pen 10 unit SUBCUT BID Qty: 3 5RF bumetanide 1 mg tablet See Rx Instructions .ROUTE .COMPLEX Qty: 60 1RF Hold Instructions: Resume on 09/26/22. old until u see primay care Dose Instruction: TAKE ONE TABLET BY MOUTH ONE TO TWO TIMES DAILY NEEDED FOR EDEMA Rx Instructions: TAKE ONE TABLET BY MOUTH ONE TO TWO TIMES DAILY NEEDED FOR EDEMA Fish Oil 300-1,000 mg Capsule 1 cap PO DAILY (DME) glucometer testing kit See Rx Instructions .Route .MEDSUPPLY Qty: 1 0RF Rx Instructions: Glucometer testing kit, check blood sugars 3 times daily -Lancets #100, strips #100 (DME) glucometer testing kit See Rx Instructions .Route .MEDSUPPLY Qty: 1 0RF Rx Instructions: Glucometer testing kit, check blood sugars 3 times daily, after meals based on sliding scale provided Lancets #100 Strips #100 oxycodone 15 mg tablet 15 mg PO Q4H PRN (Reason: Pain) levalbuterol tartrate 45 mcg/actuation HFA aerosol inhaler 2 puff INHALATION Q6H PRN (Reason: Shortness Of Breath) oxycodone 10 mg tablet 10 mg PO QID PRN (Reason: Pain) Referrals: Sheri Black FNP [Primary Care Provider] - Coding Level of Care Code ED Emd Special Education Teacher for Jorje Blackmon
[2024-02-07 17:45] VITALS: BP 204/90; PULSE 65; RESP 17; O2SAT 90
[2024-02-07 18:00] VITALS: BP 187/83; PULSE 61; RESP 17; O2SAT 90
[2024-02-07] MEDS: hyDRALAzine 20 mg/mL INJ 1 mL 10 MG IVP (18:08)
[2024-02-07 18:15] VITALS: BP 186/83; PULSE 62; RESP 16; O2SAT 92
[2024-02-07] MEDS: nicardipine 20 MG/200 ML PREMIX 50 MG IV (18:21)
[2024-02-07 18:40] VITALS: BP 179/94; PULSE 75; RESP 17; O2SAT 92
[2024-02-07 18:43] LABS: Basophils % 0.4 %; Eosinophils # 0.1 10^3/uL (0.0-0.8); Eosinophils % 1.2 %; Hematocrit 44.3 % (36-47); Lymphocytes # 2.4 10^3/uL (0.8-4.8); Mean Corpuscular HGB Conc 33.2 g/dL (30-55); Mean Corpuscular Hemoglobin 30.2 pg (27-33); Mean Corpuscular Volume 91.2 fl (85-98); Mean Platelet Volume 11.4 fL (7.4-10.4); Monocytes # 0.8 10^3/uL (0.2-0.9); Monocytes % 6.9 %; Neutrophils # 7.88 10^3/uL (1.8-7.7); Neutrophils % 69.7 %; Nucleated Red Blood Cells % 0 %; Platelet Count 265 10^3/cmm (157-399); Red Blood Count 4.86 10^6/uL (3.85-5.65); Red Cell Distribution Width 13.2 % (12.1-15.1)
[2024-02-07] MEDS: factor xa, inactivated-zhzo 400 MG in empty flexible container 1 EACH, non-DEHP filter ... 180 MG IV (18:57)
[2024-02-07] MEDS: factor xa, inactivated-zhzo 480 MG in empty flexible container 1 EACH, non-DEHP filter ... 24 MG IV (19:06)
--- NOTE | 2024-02-07 19:21 | PC.NURSE ---
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
[2024-02-07 19:22] VITALS: BP 142/104; PULSE 78; RESP 18; O2SAT 97
[2024-02-07 19:43] LABS: Anion Gap 15.6 (5-19); Blood Urea Nitrogen 33 mg/dL (8-23); Calcium 9.3 mg/dL (8.5-10.5); Carbon Dioxide 27 mmol/L (22-29); Chloride 102 mmol/L (98-107); Creatinine Clr Calc Pharmacy 37.4833; Glucose 208 mg/dL (65-115); Osmolality Calculated 303 mOsm/kg (285-295); Potassium 4.6 mmol/L (3.5-5.1); Sodium 140 mmol/L (136-145)
[2024-02-07 19:50] LABS: INR 1.17 (0.8-1.2)
== END 2024-02-07 19:24 | disposition short-term general hospital (02) ==
PROVIDERS: Emergency Provider Emergency Medicine; PCP Nurse Practitioner Family
DX: S06.6XAA Traumatic subarachnoid hemorrhage with loss of consciousness status unknown, initial encounter (principal); Z79.84 Long term (current) use of oral hypoglycemic drugs; Z79.4 Long term (current) use of insulin; S00.83XA Contusion of other part of head, initial encounter; E11.40 Type 2 diabetes mellitus with diabetic neuropathy, unspecified; E78.5 Hyperlipidemia, unspecified; I10 Essential (primary) hypertension; W01.0XXA Fall on same level from slipping, tripping and stumbling without subsequent striking against object, initial encounter
CPT/HCPCS: 36415; 70450; 70486; 80048; 85025; 85610; 96365; 96366; 96367; 96375; 99285; J0360; J7169

== ENCOUNTER → 2024-05-20 13:30 | Outpatient (BNVA) | payer MEDICARE, MEDICAID, SELFPAY | PROVIDERS: PCP Nurse Practitioner Family; Visit Provider Nurse Practitioner Family | DX: E11.9 Type 2 diabetes mellitus without complications; E55.9 Vitamin D deficiency, unspecified | CPT/HCPCS: 80053; 80061; 82306; 82607; 83036; 83735; 84443; 85025 ==

== ENCOUNTER → 2024-10-03 11:16 | Outpatient (BNVA) | payer MEDICARE, MEDICAID, SELFPAY | PROVIDERS: PCP Nurse Practitioner Family; Visit Provider Nurse Practitioner Family | DX: E55.9 Vitamin D deficiency, unspecified (principal); E11.9 Type 2 diabetes mellitus without complications; I10 Essential (primary) hypertension; E53.8 Deficiency of other specified B group vitamins | CPT/HCPCS: 80053; 80061; 82306; 82607; 83036; 84443; 85025 ==

== ENCOUNTER 2024-12-26 19:54 | Observation (INO) | payer MEDICARE, MEDICAID, SELFPAY ==
[2024-12-26 20:06] VITALS: BP 168/66; PULSE 62; RESP 16; TEMP 36.7; O2SAT 84; BMI 37.9
[2024-12-26 20:17] VITALS: O2SAT 95
--- NOTE | 2024-12-26 21:00 | XRR_ITS ---
PROCEDURE INFORMATION: Exam: XR Chest Exam date and time: 12/26/2024 9:27 PM Age: 74 years old Clinical indication: Shortness of breath and other: Weakness TECHNIQUE: Imaging protocol: Radiologic exam of the chest. Views: 1 view. COMPARISON: CR XR chest 1V portable [id number] 09/14/2022 11:11 AM FINDINGS: Limitations: The study is made with less than full inspiration. Lungs: Visualized portions of the lungs are clear. There is no pulmonary venous congestion. Pleural spaces: Unremarkable. No pleural effusion. No pneumothorax. Heart/Mediastinum: Heart is mildly enlarged. Diaphragm: There is chronic elevation the right hemidiaphragm. Bones/joints: Unremarkable. XR/XR chest 1V portable [id number] IMPRESSION: No acute infiltrate. No significant change compared with 09/14/2022
[2024-12-26 22:05] LABS: Basophils % 0.3 %; Eosinophils # 0.4 10^3/uL (0.0-0.8); Eosinophils % 3.7 %; Hematocrit 43.7 % (36-47); Lymphocytes # 2.9 10^3/uL (0.8-4.8); Lymphocytes % 25.3 %; Mean Corpuscular HGB Conc 31.4 g/dL (30-55); Mean Corpuscular Hemoglobin 29.4 pg (27-33); Mean Corpuscular Volume 93.8 fl (85-98); Mean Platelet Volume 10.7 fL (7.4-10.4); Monocytes # 0.8 10^3/uL (0.2-0.9); Neutrophils # 7.11 10^3/uL (1.8-7.7); Neutrophils % 63.3 %; Nucleated Red Blood Cells % 0 %; Platelet Count 255 10^3/cmm (157-399); Red Blood Count 4.66 10^6/uL (3.85-5.65); Red Cell Distribution Width 13.5 % (12.1-15.1); White Blood Count 11.25 10^3/uL (3.29-11.43)
--- NOTE | 2024-12-26 22:16 | W.ED.ABDPA2 ---
HPI - Abdominal Pain General: Chief Complaint: Abdominal Pain Stated Complaint: upper right abd pain confusion Time Seen by Provider: 12/26/24 21:07 History of Present Illness: 74-year-old woman with a history of GERD, A-fib, type 2 diabetes, obesity, neuropathy, hyperlipidemia and hypertension who presents urgency room with right lower quadrant pain, flank pain, dizziness, some confusion earlier, shortness of breath over the last 2 or 3 days. On presentation to the emergency room she was 84% on room air and 95% after she was placed on 2 L nasal cannula. She has not really had a cough she says. She says she was on oxygen after she had a brain bleed a year ago but then was not requiring anymore so has not been using it for many months now. She has not noticed any dysuria. No fevers. Related Data Home Medications ?Medication ?Instructions ?Recorded ?Confirmed levalbuterol tartrate 45 2 puff inhalation Q6H PRN 07/01/22 10/03/24 mcg/actuation aerosol inhaler Shortness Of Breath oxycodone 10 mg tablet 10 mg PO QID PRN Pain 07/01/22 10/03/24 oxycodone 15 mg tablet 15 mg PO Q4H PRN Pain 07/01/22 10/03/24 omega 9-ksp-hog-fish oil 300 1 cap PO DAILY 09/12/22 10/03/24 mg-1,000 mg capsule (Fish Oil) Previous Rx's ?Medication ?Instructions ?Recorded glucometer testing kit #1 ea 09/18/22 glucometer testing kit #1 ea 09/18/22 mupirocin 2 % topical ointment 1 applic topical BID 10 days #22 05/26/23 grams diclofenac sodium 1 % topical gel See Rx Instructions .Route 10/17/23 .COMPLEX #300 grams bumetanide 1 mg tablet See Rx Instructions .Route 05/20/24 .COMPLEX #60 tabs fenofibrate 160 mg tablet See Rx Instructions .Route 05/20/24 .COMPLEX #90 tabs ondansetron HCl 4 mg tablet See Rx Instructions .Route 05/20/24 .COMPLEX #30 tabs rivaroxaban 10 mg tablet (Xarelto) See Rx Instructions .Route 05/20/24 .COMPLEX #90 tabs simvastatin 40 mg tablet See Rx Instructions .Route 05/20/24 .COMPLEX #90 tabs insulin degludec 100 unit/mL (3 20 unit (0.2 mL) SUBCUT QAM #15 mL 05/27/24 mL) subcutaneous pen (Tresiba FlexTouch U-100 insulin) syringe with needle 3 mL 25 gauge #1 ea 05/31/24 x 1 (BD Luer-Beth Syringe) ergocalciferol (vitamin D2) 1,250 See Rx Instructions .Route 07/17/24 mcg (50,000 unit) capsule .COMPLEX #12 caps amlodipine 5 mg tablet See Rx Instructions .Route 10/03/24 .COMPLEX #90 tabs famotidine 20 mg tablet See Rx Instructions .Route 10/03/24 .COMPLEX #180 tabs cyanocobalamin (vitamin B-12) See Rx Instructions .Route 10/14/24 1,000 mcg/mL injection solution .COMPLEX #3 mL gabapentin 800 mg tablet See Rx Instructions .Route 10/14/24 .COMPLEX #270 tabs glipizide 10 mg tablet, extended See Rx Instructions .Route 10/14/24 release 24 hr .COMPLEX #90 tabs lisinopril 40 mg tablet See Rx Instructions .Route 10/14/24 .COMPLEX #180 tabs metformin 1,000 mg tablet See Rx Instructions .Route 10/14/24 .COMPLEX #180 tabs metoprolol tartrate 50 mg tablet See Rx Instructions .Route 10/14/24 .COMPLEX #360 tabs magnesium oxide 400 mg (241.3 mg See Rx Instructions .Route 12/19/24 magnesium) tablet .COMPLEX #90 tabs Allergies Allergy/AdvReac Type Severity Reaction Status Date / Time No Known Allergies Allergy Verified 02/06/24 09:05 Review of Systems Narrative: Constitutional symptoms: Negative except as documented in HPI. Skin symptoms: Negative except as documented in HPI. Eye symptoms: Negative except as documented in HPI. ENMT symptoms: Negative except as documented in HPI. Respiratory symptoms: Negative except as documented in HPI. Cardiovascular symptoms: Negative except as documented in HPI. Gastrointestinal symptoms: Negative except as documented in HPI. Genitourinary symptoms: Negative except as documented in HPI. Musculoskeletal symptoms: Negative except as documented in HPI. Neurologic symptoms: Negative except as documented in HPI. Psychiatric symptoms: Negative except as documented in HPI. Endocrine symptoms: Negative except as documented in HPI. PFSH ED PFSH: Medical History B12 deficiency Vitamin D deficiency GERD (gastroesophageal reflux disease) Atrial fibrillation Cholecystitis Abnormal transaminases Cholelithiasis Acute encephalopathy Acute cystitis Wound of right foot Type 2 diabetes mellitus without complications Obesity, unspecified Chronic osteoarthritis Bunion of right foot Encounter for counseling for care management of patient with chronic conditions and complex health needs using nurse-based model Seasonal allergies Gastro-esophageal reflux disease without esophagitis Neuropathy Dyslipidemia Chronic back pain Essential (primary) hypertension Type 2 diabetes mellitus Surgical History Hx of knee surgery (~10/2000) left Family History Mother Cancer colon Father Cancer pancreatic Family/Other CAD (coronary artery disease) Social History Smoking and tobacco/nicotine status: never used tobacco/nicotine Second hand smoke exposure: No Alcohol intake: never Substance/Drug Use: never Lives independently: Yes Household members: significant other Marital status: Life Partner Current occupational status: retired Current gender identity: Female Physical Exam Narrative: EXAM NARRATIVE: General: Alert, no acute distress. Skin: Warm, dry. Head: Normocephalic, atraumatic. Neck: Supple, trachea midline. Eye: Extraocular movements are intact. Ears, nose, mouth and throat: mucosa moist. Cardiovascular: Regular, Normal peripheral perfusion. Respiratory: Lungs are clear to auscultation, respirations are non-labored, breath sounds are equal, Symmetrical chest wall expansion. Gastrointestinal: Soft, some tenderness in the right inguinal area, Non distended Musculoskeletal: Normal ROM, no deformity. Neurological: Alert and oriented, No focal neurological deficit observed. Psychiatric: Cooperative, appropriate mood & affect. Course Vital Signs: Vital signs: Vital Signs Temperature 98.1 F 12/26/24 20:06 Pulse Rate 58 L 12/26/24 23:39 Respiratory Rate 18 12/26/24 23:39 Blood Pressure 143/64 12/26/24 23:39 Pulse Oximetry 93 12/26/24 23:39 Oxygen Delivery Me thod Nasal Cannula 12/26/24 20:17 Oxygen Flow Rate 2 12/26/24 20:17 MDM - Abdominal Pain Medical Decision Making Medical decision making: Differential diagnosis for patient presenting with generalized weakness including but not limited to and based on the above HPI, review of systems and physical exam: Sepsis. Dehydration. Renal failure. Electrolyte abnormalities. Anemia. Congestive heart failure. Hypotension. Coronary syndrome. Hepatitis. Cirrhosis. Infections such as pneumonia, urinary tract infection, [place]ne illness, Cellulitis, Viral infections including influenza and Covid-19. Workup: labwork and lab/exam driven imaging ordered to evaluate, rule in and rule out above pathologies. Lab Review: Laboratory results were reviewed and interpreted by myself the emergency room physician. No leukocytosis. No anemia. Patient does have some acute renal insufficiency. It is 1.6 today. Recently has been around 1-1.2. She has had some acute renal insufficiency in the past. No urinary tract infection AB.2 with an O2 sat of 90% on 3 L nasal cannula Chest x-ray: No acute process. No infiltrate. No pneumothorax. This was reviewed and interpreted by myself the emergency room physician. I also reviewed the radiology report. CT of the chest abdomen pelvis without contrast: No acute process was seen. This was reviewed and interpreted by myself the emergency room physician. I also reviewed the radiology report. I reviewed the patient's medical record. Reexamination: Patient has remained fairly stable but she does require oxygen anytime she is, off she dropped down into the 80s. No increased work of breathing while she sleeping. She is relatively asymptomatic at this time. No altered mental status. No focal motor deficits at this time. Consultation: I spoke with Dr. Michaud about the patient. Unclear why she is having hypoxemia and dizziness and confusion today. Is on Xarelto so likely not a PE. Also her heart rate is normal to low. She does have some renal insufficiency so some fluids were given. CT shows no pneumonias. No abdominal pathology. Assessment and plan: Hypoxemia Dizziness Encephalopathy Abdominal pain ?IV Solu-Medrol, IV fluids, updraft. -I discussed the patient with the hospitalist on-call who is admitting the patient. - Discussed findings and plan with patient. Answered any questions. - All laboratory values were reviewed and interpreted personally by myself, the ER physician - All imaging was reviewed and interpreted personally by myself, the ER physician. - Evaluation and treatment of this problem were appropriate in the emergency setting Lab Data 12/26/24 21:54 12/26/24 21:54 Labs/Radiology: Radiology Impressions Chest X-Ray 12/26/24 21:00 IMPRESSION: No acute infiltrate. No significant change compared with 09/14/2022 Chest/Abdomen/Pelvis CT 12/26/24 23:25 IMPRESSION: 1. Old granulomatous disease. 2. No acute findings in the chest. IMPRESSION: 1. Fatty liver 2. No acute findings in the abdomen or pelvis. Laboratory Results WBC 11.25 10^3/uL (3.29-11.43) 12/26/24 21:54 RBC 4.66 10^6/uL (3.85-5.65) 12/26/24 21:54 Hgb 13.70 g/dL (11.27-16.99) 12/26/24 21:54 Hct 43.7 % (36-47) 12/26/24 21:54 MCV 93.8 fl (85-98) 12/26/24 21:54 MCH 29.4 pg (27-33) 12/26/24 21:54 MCHC 31.4 g/dL (30-55) 12/26/24 21:54 RDW 13.5 % (12.1-15.1) 12/26/24 21:54 Plt Count 255 10^3/cmm (157-399) 12/26/24 21:54 MPV 10.7 fL (7.4-10.4) H 12/26/24 21:54 Neut % (Auto) 63.3 % 12/26/24 21:54 Lymph % (Auto) 25.3 % 12/26/24 21:54 [place] % (Auto) 7.0 % 12/26/24 21:54 Eos % (Auto) 3.7 % 12/26/24 21:54 Baso % (Auto) 0.3 % 12/26/24 21:54 Neut # (Auto) 7.11 10^3/uL (1.8-7.7) 12/26/24 21:54 Lymph # (Auto) 2.9 10^3/uL (0.8-4.8) 12/26/24 21:54 [place] # (Auto) 0.8 10^3/uL (0.2-0.9) 12/26/24 21:54 Eos # (Auto) 0.4 10^3/uL (0.0-0.8) 12/26/24 21:54 Baso # (Auto) 0.0 10^3/uL (0.0-0.1) 12/26/24 21:54 Nucleated RBC % (auto) 0 % 12/26/24 21:54 Nucleated RBCs # 0.0 /100WBC 12/26/24 21:54 Specimen Type Arterial 12/26/24 22:53 Sample Site Brachial, left 12/26/24 22:53 ABG pH 7.29 (7.35-7.45) L 12/26/24 22:53 ABG pCO2 59.7 mmHg (35-45) H 12/26/24 22:53 ABG pO2 67.8 mmHg (80.0-100.0) L 12/26/24 22:53 ABG HCO3 28.9 mmol/L (22-26) H 12/26/24 22:53 ABG O2 Saturation 92.0 12/26/24 22:53 ABG Base Excess 1.0 mmol/L (-2.0-2.0) 12/26/24 22:53 Reji Test N/a 12/26/24:53 A-a O2 Gradient 1.6 mmHg (5-10) L 12/26/24 22:53 Hematocrit 42.2 % (37-47) 12/26/24 22:53 Hgb O2 Saturation 90.5 % (95-100) L 12/26/24 22:53 Carboxyhemoglobin 0.5 %THgb (0.4-20.1) 12/26/24 22:53 Methemoglobin 1.1 % (0.4-1.5) 12/26/24 22:53 Total Hemoglobin 13.8 g/dL (12-16) 12/26/24 22:53 Sodium 139.0 mmol/L (131-143) 12/26/24 22:53 Potassium 4.2 mmol/L (3.5-5.0) 12/26/24 22:53 Glucose 67.0 mg/dL (70-115) L 12/26/24 22:53 Ionized Calcium 1.3 mmol/L (1.1-1.4) 12/26/24 22:53 O2 Delivery Device Nc 12/26/24 22:53 O2 Liters/Min 2.0 % 12/26/24 22:53 Control Officer Manager ID [email or web address] 12/26/24 22:53 Sodium 137 mmol/L (136-145) 12/26/24 21:54 Potassium 4.6 mmol/L (3.5-5.1) 12/26/24 21:54 Chloride 99 mmol/L (98-107) 12/26/24 21:54 Carbon Dioxide 27 mmol/L (22-29) 12/26/24 21:54 Anion Gap 15.6 (5-19) 12/26/24 21:54 BUN 37 mg/dL (8-23) H 12/26/24 21:54 Creatinine 1.6 mg/dL (0.5-0.9) H 12/26/24 21:54 GFR Calculation Not Reportable 12/26/24 21:54 Glucose 81 mg/dL (65-115) 12/26/24 21:54 Calculated Osmolality 292 mOsm/kg (285-295) 12/26/24 21:54 Lactic Acid 1.3 mmol/L (0.5-2.2) 12/26/24 21:54 Calcium 9.4 mg/dL (8.5-10.5) 12/26/24 21:54 Total Bilirubin 0.3 mg/dL (0.15-1.2) 12/26/24 21:54 AST 18 U/L (0-32) 12/26/24 21:54 ALT 15 U/L (0-33) 12/26/24 21:54 Alkaline Phosphatase 58 U/L (35-105) 12/26/24 21:54 C-Reactive Protein 11.4 mg/L (0.0-4.9) H 12/26/24 21:54 Total Protein 7.3 g/dL (6.6-8.7) 12/26/24 21:54 Albumin 4.0 g/dL (3.5-5.2) 12/26/24 21:54 Globulin 3.3 g/dL (1.3-4.6) 12/26/24 21:54 Urine Color Yellow (Yellow) 12/26/24 22:42 Urine Appearance Clear (CLEAR) 12/26/24 22:42 Urine pH 5.0 (5-7) 12/26/24 22:42 Ur Specific [place] 1.015 (1.005-1.030) 12/26/24 22:42 Urine Protein Negative (Negative) 12/26/24 22:42 Urine Glucose (UA) Negative (Normal) 12/26/24 22:42 Urine Ketones Negative (Negative) 12/26/24 22:42 Urine Blood Negative (Negative) 12/26/24 22: Urine Nitrate Negative (Negative) 12/26/24 22:42 Urine Bilirubin Negative (Negative) 12/26/24 22:42 Urine Urobilinogen 0.2 mg/dL (Negative) 12/26/24 22:42 Ur Leukocyte Esterase Negative (Negative) 12/26/24 22:42 Urine RBC 0-2 /hpf (0-2) 12/26/24 22:42 Urine WBC 0-5 /hpf (0-5) 12/26/24 22:42 Ur Squamous Epith Cells 0-5 /hpf (0-5) 12/26/24 22:42 Amorphous Sediment Not Reportable 12/26/24 22:42 Urine Bacteria None seen /hpf (NONE) 12/26/24 22:42 Hyaline Casts 5.77 /lpf 12/26/24 22:42 Coronavirus (PCR) Negative (Negative) 12/26/24 21:54 Influenza A (PCR) Negative (Negative) 12/26/24 21:54 Influenza Type B (PCR) Negative (Negative) 12/26/24 21:54 RSV (PCR) Negative (Negative) 12/26/24 21:54 All radiology interpretation(s) finalized by discharge Discharge Plan Discharge Patient Disposition: Admitted As Inpatient Clinical Impression: Hypoxemia, Abdominal pain, Dizziness Condition: Stable Coding Level of Care Code ED Horizontal Resaw Operator for Jorje Blackmon
[2024-12-26 22:20] LABS: Lactic Sepsis W/Reflex 1.3 mmol/L (0.5-2.2)
[2024-12-26 22:28] LABS: Alanine Aminotransferase 15 U/L (0-33); Alkaline Phosphatase 58 U/L (35-105); Anion Gap 15.6 (5-19); Aspartate Amino Transferase 18 U/L (0-32); Blood Urea Nitrogen 37 mg/dL (8-23); C Reactive Protein 11.4 mg/L (0.0-4.9); Calcium 9.4 mg/dL (8.5-10.5); Carbon Dioxide 27 mmol/L (22-29); Chloride 99 mmol/L (98-107); Creatinine Clr Calc Pharmacy 34.7373; Globulin 3.3 g/dL (1.3-4.6); Glucose 81 mg/dL (65-115); Osmolality Calculated 292 mOsm/kg (285-295); Potassium 4.6 mmol/L (3.5-5.1); Sodium 137 mmol/L (136-145); Total Bilirubin 0.3 mg/dL (0.15-1.2); Total Protein 7.3 g/dL (6.6-8.7)
[2024-12-26 22:45] LABS: Influenza A NEGATIVE (Negative); Influenza B NEGATIVE (Negative); Respiratory Syncytial Virus Ce NEGATIVE (Negative); SARS-CoV-2 PCR NEGATIVE (Negative)
[2024-12-26 23:04] LABS: ABG PCO2 59.7 mmHg (35-45); ABG PH Result 7.29 (7.35-7.45); Alveolar-Arterial Oxygen Gradi 1.6 mmHg (5-10); Arterial Blood Gas Hematocrit 42.2 % (37-47); Blood Gas Sample Site Brachial, left; Blood Gas Sample Type Arterial; Carboxyhemoglobin 0.5 %THgb (0.4-20.1); HCO3 ABG 28.9 mmol/L (22-26); HGB O2 Sat 90.5 % (95-100); Ionized Calcium Level - ABG 1.3 mmol/L (1.1-1.4); Methemoglobin 1.1 % (0.4-1.5); Oxygen Device NC; PO2 ABG 67.8 mmHg (80.0-100.0); Potassium Level - ABG 4.2 mmol/L (3.5-5.0); Total Hemoglobin 13.8 g/dL (12-16)
[2024-12-26 23:16] LABS: Bilirubin Urine Negative (Negative); Blood Urine Negative (Negative); Glucose Urine UA Negative (Normal); Ketones Urine Negative (Negative); Leukocyte Esterase Urine Negative (Negative); Nitrate Urine Negative (Negative); Protein Urine Negative (Negative); Specific Gravity, Urine 1.015 (1.005-1.030); Urine Appearance Clear (CLEAR); Urine Color Yellow (Yellow); Urobilinogen Urine 0.2 mg/dL (Negative)
[2024-12-26] MEDS: sodium chloride 0.9% 1,000 ML 999 ML IV (23:19)
[2024-12-26 23:20] LABS: Bacteria Urine None Seen /hpf; Hyaline Casts Urine 5.77 /lpf; RBC Urine 0-2 /hpf (0-2); Squamous Epithelial Cell Urine 0-5 /hpf (0-5); WBC Urine 0-5 /hpf (0-5)
--- NOTE | 2024-12-26 23:25 | CTR_ITS ---
PROCEDURE INFORMATION: Exam: CT Chest Without Contrast; Diagnostic Exam date and time: 12/26/2024 11:42 PM Age: 74 years old Clinical indication: Abdominal pain; Right-sided; Additional info: Rlq abd pain, hypoxemia TECHNIQUE: Imaging protocol: Diagnostic computed tomography of the chest without contrast. Radiation optimization: All CT scans at this facility use at least one of these dose optimization techniques: automated exposure control; mA and/or kV adjustment per patient size (includes targeted exams where dose is matched to clinical indication); or iterative reconstruction. COMPARISON: 1. CR (CHEST, ) 12/26/2024 9:[address] abdomen pelvis wo con [id number] 09/14/2022 3:11 PM RADIATION DOSE METRICS: Total DLP (mGy-cm): 0.01 FINDINGS: Lungs: Lungs are clear. Pleural spaces: Unremarkable. No pneumothorax. No pleural effusion. Heart: Unremarkable. No cardiomegaly. No pericardial effusion. Lymph nodes: There is some mildly prominent paratracheal lymph nodes but no adenopathy. There are calcified hilar and mediastinal lymph nodes in keeping with old granulomatous disease. Vasculature: There is no thoracic aortic aneurysm. Diaphragm: Chronic elevation right hemidiaphragm again seen. Bones/joints: There is no evidence of acute fracture. Old healed right rib fractures are identified. Soft tissues: Unremarkable. PROCEDURE INFORMATION: Exam: CT Abdomen And Pelvis Without Contrast Exam date and time: 12/26/2024 11:42 PM Age: 74 years old Clinical indication: Abdominal pain; Right-sided; Additional info: Rlq abd pain, hypoxemia TECHNIQUE: Imaging protocol: Computed tomography of the abdomen and pelvis without contrast. Radiation optimization: All CT scans at this facility use at least one of these dose optimization techniques: automated exposure control; mA and/or kV adjustment per patient size (includes targeted exams where dose is matched to clinical indication); or iterative reconstruction. COMPARISON: CT abdomen pelvis wo con [id number] 09/14/2022 3:11 PM RADIATION DOSE METRICS: Total DLP (mGy-cm): 1187 FINDINGS: Limitations: The absence of intravenous contrast lessens the sensitivity of this study for solid organ abnormalities. Liver: There is a diffuse decrease in hepatic parenchymal density, consistent with moderate fatty infiltration. There is no focal abnormality within the liver. Gallbladder and biliary ducts: Multiple calcified gallstones are present. There is no common bile duct dilation. Pancreas: The pancreas is normal. Spleen: The spleen demonstrates punctate calcifications, consistent with remote granulomatous organism exposure. Adrenal glands: The adrenal glands are normal. Kidneys and ureters: The kidneys are normal. Stomach and bowel: There is no evidence of colitis/diverticulitis. There is no evidence of intestinal obstruction. Appendix: A normal appendix is identified. Intraperitoneal space: There is no evidence of free intraperitoneal fluid. Vasculature: The aorta is normal. Lymph nodes: There is no evidence of lymphadenopathy. Urinary bladder: Unremarkable as visualized. Reproductive: Unremarkable as visualized. Bones/joints: The lumbar spine demonstrates moderate degenerative changes at multiple levels. There is multilevel lumbar stenosis. Soft tissues: Unremarkable. CT/[place] [id number] IMPRESSION: 1. Old granulomatous disease. 2. No acute findings in the chest. IMPRESSION: 1. Fatty liver 2. No acute findings in the abdomen or pelvis.
[2024-12-26 23:39] VITALS: BP 143/64; PULSE 58; RESP 18; O2SAT 93
[2024-12-27] VITALS (24 sets, daily range): BP systolic 126–168; BP diastolic 57–98; PULSE 56–117; RESP 16–22; TEMP 36.3–37.2; O2SAT 89–99; BMI 39.8
[2024-12-27] MEDS: methylPREDNISolone sod succ 125 mg/2 mL INJ IVP (00:21)
[2024-12-27] MEDS: albuterol 2.5 mg/3 mL Neb INHALATION (00:30)
--- NOTE | 2024-12-27 00:43 | P.HP_ITS ---
Providers/Chief Complaint 2 Primary Care Provider: DOMINICK Vizcarra Chief Complaint: upper right abd pain confusion History of Present Illness Elena Salinas is a 74 year old female with a past medical history significant for B12 deficiency, atrial fibrillation, type 2 diabetes mellitus, hypertension, and hypoxia previously on home oxygen who presents emergency department with dizziness, confusion, and right upper quadrant discomfort x 1 day. She endorses associated fatigue and lethargy. Daughter at bedside states that she has been exceptionally tired all day with memory loss and dozes off quickly. Exertion worsens symptoms. Rest improves. Denies other alleviating or aggravating factors. Upon presentation, she was found to be hypoxic 83% on room air. Vitals were otherwise largely unremarkable. CBC unremarkable. CMP with some azotemia and elevated creatinine to 1.6. Urinalysis largely unremarkable. ABG revealed hypercapnia with pCO2 of 59.7 mmHg resulting in pH of 7.29. Chest x-ray negative for acute findings. CT chest abdomen pelvis were negative for acute findings. Patient denies prior known history of lung disease. She states that she has been on home oxygen previously following her brain bleed. She states that she only wore it for a few weeks until her hypoxia resolved at that time. She was never given a lung diagnosis. She still has the oxygen concentrator at home but no longer wears it since January of last year. She denies prior history of known COPD or asthma. Denies smoking history. Denies prior pulmonary function testing. Review of Systems 2 Narrative: A complete review of systems was obtained and is negative except as stated in HPI. Medications/Allergies Home Medications ?Medication ?Instructions ?Recorded ?Confirmed ?Last Taken ?Type levalbuterol tartrate 45 2 puff inhalation Q6H PRN 10/03/24 Unknown History mcg/actuation aerosol inhaler Shortness Of Breath oxycodone 10 mg tablet 10 mg PO QID PRN Pain 10/03/24 Unknown History oxycodone 15 mg tablet 15 mg PO Q4H PRN Pain 10/03/24 Unknown History omega 2-pov-ffw-fish oil 300 1 cap PO DAILY 09/12/22 1 12/03/23 Unknown History mg-1,000 mg capsule (Fish Oil) glucometer testing kit #1 ea 09/18/22 10/03/24 Unkn own Rx glucometer testing kit #1 ea 09/18/22 10/03/24 Unkn own Rx mupirocin 2 % topical ointment 1 applic topical BID 10 days #22 05/26/23 10/03/24 Unknown Rx grams diclofenac sodium 1 % topical gel See Rx Instructions .Route 10/17/23 10/03/24 Unknown Rx .COMPLEX #300 grams bumetanide 1 mg tablet See Rx Instructions .Route 0 05/20/24 10/03/24 Unknown Rx .COMPLEX #60 tabs fenofibrate 160 mg tablet See Rx Instructions .Route 0 05/20/24 10/03/24 Unknown Rx .COMPLEX #90 tabs ondansetron HCl 4 mg tablet See Rx Instructions .Route 05/20/24 10/03/24 Unknown Rx .COMPLEX #30 tabs rivaroxaban 10 mg tablet (Xarelto) See Rx Instructions .Route 05/20/24 10/03/24 Unknown Rx .COMPLEX #90 tabs simvastatin 40 mg tablet See Rx Instructions .Route 0 05/20/24 10/03/24 Unknown Rx .COMPLEX #90 tabs insulin degludec 100 unit/mL (3 20 unit (0.2 mL) SUBCU T QAM #15 mL 05/27/24 10/03/24 Unknown Rx mL) subcutaneous pen (Tresiba FlexTouch U-100 insulin) syringe with needle 3 mL 25 gauge #1 ea 05/31/2410/03 Unknown Rx x 1 (BD Luer-Beth Syringe) ergocalciferol (vitamin D2) 1,250 See Rx Instructions .Route 07/17/24 10/03/24 Unknown Rx mcg (50,000 unit) capsule .COMPLEX #12 caps amlodipine 5 mg tablet See Rx Instructions .Route 1 12/03/23 10/03/24 Unknown Rx .COMPLEX #90 tabs famotidine 20 mg tablet See Rx Instructions .Route 1 12/03/23 10/03/24 Unknown Rx .COMPLEX #180 tabs cyanocobalamin (vitamin B-12) See Rx Instructions .Rou te 10/14/24 Unknown Rx 1,000 mcg/mL injection solution .COMPLEX #3 mL gabapentin 800 mg tablet See Rx Instructions .Route 1 12/15/23 Unknown Rx .COMPLEX #270 tabs glipizide 10 mg tablet, extended See Rx Instructions . Route 10/14/24 Unknown Rx release 24 hr .COMPLEX #90 tabs lisinopril 40 mg tablet See Rx Instructions .Route 1 12/15/23 Unknown Rx .COMPLEX #180 tabs metformin 1,000 mg tablet See Rx Instructions .Route 1 12/15/23 Unknown Rx .COMPLEX #180 tabs metoprolol tartrate 50 mg tablet See Rx Instructions . Route 10/14/24 Unknown Rx .COMPLEX #360 tabs magnesium oxide 400 mg (241.3 mg See Rx Instructions . Route 12/19/24 Unknown Rx magnesium) tablet .COMPLEX #90 tabs Allergies Allergy/AdvReac Type Severity Reaction Status Date / Time No Known Allergies Allergy Verified 02/06/24 09:05 PFSH Acute 2 PFSH: Medical History (Updated 12/27/24 @ 01:03 by Gabriel Michaud MD) NOEMI (acute kidney injury) Type 2 diabetes mellitus B12 deficiency Vitamin D deficiency GERD (gastroesophageal reflux disease) Atrial fibrillation Cholecystitis Abnormal transaminases Cholelithiasis Acute encephalopathy Acute cystitis Wound of right foot Type 2 diabetes mellitus without complications Obesity, unspecified Chronic osteoarthritis Bunion of right foot Encounter for counseling for care management of patient with chronic conditions and complex health needs using nurse-based model Seasonal allergies Gastro-esophageal reflux disease without esophagitis Neuropathy Dyslipidemia Chronic back pain Essential (primary) hypertension Surgical History Hx of knee surgery (~10/2000) left Family History Mother Cancer colon Father Cancer pancreatic Family/Other CAD (coronary artery disease) Social History Smoking and tobacco/nicotine status: never used tobacco/nicotine Second hand smoke exposure: No Alcohol intake: never Substance/Drug Use: never Lives independently: Yes Household members: significant other Marital status: Life Partner Current occupational status: retired Current gender identity: Female Vitals/I&O/Wt Last Vital Signs Temp 98.1 F 12/26/24 20:06 Pulse 58 L 12/26/24 23:39 Resp 18 12/26/24 23:39 BP 143/64 12/26/24 23:39 Pulse Ox 93 12/26/24 23:39 O2 Del Method Nasal Cannula 12/26/24 20:17 O2 Flow Rate 2 12/26/24 20:17 12/26/24 12/26/24 12/27/24 14:59 22:59 06:59 Intake Total 0 / 0 Balance 0 / 0 Weight last 48 hrs Weight 97.069 kg Physical Exam 2 Narrative: General: Patient is awake and alert. Head: Normocephalic. Atraumatic. EOM intact. Neck: No JVD. Cardiovascular: RRR. No gallops. No murmurs. Nonpitting lower extremity edema. Lungs: Moderate air movement. No wheezing. No crackles. No rales. On nasal cannula support. Skin: No jaundice. No rashes. Abdomen: Normal bowel sounds, abdomen soft and nontender. Genito Urinary: Genital exam not performed since complaints not related. Rectal: Rectal exam not performed since no symptoms indicated blood loss. Extremities: No cyanosis or clubbing. Musculoskeletal: No swollen or erythematous joints. Neurological: Moves all 4 extremities. No myoclonus. Data 12/26/24 21:54 12/26/24 21:54 Micro: Microbiology 12/26/24 22:30 Blood Culture - Preliminary Blood SPECIMEN COLLECTED 12/26/24 21:54 Blood Culture - Preliminary Blood SPECIMEN COLLECTED A&P Assessment and plan (1) Respiratory failure: Acute hypercapnic hypoxic respiratory failure CT imaging reviewed, no acute pathology on imaging Moderate air movement on exam Suspect patient has underlying reactive airway disease with exacerbation Check echocardiogram Supplemental oxygen support (2) CO2 narcosis: ABG consistent with CO2 narcosis likely culprit for her lethargy and confusion Start treatment for underlying reactive airway exacerbation Start systemic steroids Schedule breathing treatments Serial ABGs as needed May need BiPAP pending clinical course (3) NOEMI (acute kidney injury): Status post IV fluids in the ED Hold nephrotoxins including PEREZ inhibitor Renally dose meds (4) Atrial fibrillation: Telemetry monitoring Plan to continue DOAC for stroke prophylaxis Continue metoprolol for rate control Qualifiers: Atrial fibrillation type: unspecified Qualified Code(s): I48.91 - Unspecified atrial fibrillation (5) Essential (primary) hypertension: Hold lisinopril due to NOEMI Continue other home meds IV hydralazine as needed (6) Type 2 diabetes mellitus: Hold oral medications Long-acting insulin at reduced rate Sliding-scale insulin correction Qualifiers: 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 Coding Level of Care Code Acute Code for [facility] Diagnoses Respiratory failure J96.90 CO2 narcosis R06.89 NOEMI (acute kidney injury) N17.9 Atrial fibrillation, unspecified type I48.91 Atrial fibrillation type: unspecified Essential (primary) hypertension I10 Type 2 diabetes mellitus with hyperglycemia, without long-term current use of insulin E11.65 Diabetes mellitus local intermodal truck driver insulin use: without local intermodal truck driver use Diabetes mellitus complication status: with hyperglycemia
--- NOTE | 2024-12-27 01:13 | USCV_ITS ---
Elena Salinas Age: 74 Gender: F : 1950 Exam Date: 12/27/2024 01:33 Ordering Phys: Gabriel Michaud MD Technologist: PAM Exam Location: [facility] [place] Indication: fatigue, letharby, hypoxia 83%, history of Afib, DM2, HTN, O2-dependent. BP: 168 / 66 HR: 54 Rhythm: Sinus Technical Quality: Adequate MEASUREMENTS (Male / Female) Normal Values 2D ECHO LV Diastolic Diameter PLAX 5.2 cm 4.2 - 5.9 / 3.9 - 5.3 cm IVS Diastolic Thickness 1.8 cm 0.6 - 1.0 / 0.6 - 0.9 cm IVS Systolic Thickness 2.0 cm LVPW Diastolic Thickness 1.2 cm 0.6 - 1.0 / 0.6 - 0.9 cm LVPW Systolic Thickness 2.1 cm LVOT Diameter 1.9 cm LV Ejection Fraction 2D Teich 63.9 % LV Ejection Fraction MOD 4C 49.9 % LV Ejection Fraction MOD 2C 51.5 % LV Ejection Fraction 2C AL 51.2 % LA Diameter 4.7 cm LA Sys Volume AL 69.6 cm cubed LA Sys Volume Index AL 32.7 cm cubed/m squared Aorta at Sinotubular Diameter 2.9 cm IVC Diameter 1.1 cm M-MODE LA Ao Ratio MM 1.9 AV Cusp Separation MM 2.2 cm DOPPLER AV Peak Velocity 193.0 cm/s LVOT Peak Velocity 121.0 cm/s AV Area Cont Eq vti 2.0 cm squared AV Area Cont Eq pk 1.8 cm squared MV Peak Velocity 110.0 cm/s MV Area PHT 3.2 cm squared Mitral E to A Ratio 1.1 TV Peak Velocity 259.3 cm/s TR Peak Velocity 303.0 cm/s TR Peak Gradient 36.7 mmHg TV Peak E Velocity 61.0 cm/s PV Peak Velocity 136.0 cm/s FINDINGS Left Ventricle Normal left ventricular size, systolic function and wall thickness, with no regional wall motion abnormalities. Left ventricular ejection fraction is estimated at 60 %. Grade I/IV diastolic dysfunction (abnormal relaxation filling pattern), normal to mildly elevated filling pressures. Right Ventricle The right ventricle is normal in size and function. Right Atrium The right atrium is normal in size. Left Atrium Moderately increased left atrial size. Mitral Valve Structurally normal mitral valve without significant stenosis or prolapse. There is no mitral regurgitation. Aortic Valve Structurally normal aortic valve without significant sclerosis or stenosis. There is no aortic regurgitation. Tricuspid Valve Moderate tricuspid valve regurgitation. Pulmonic Valve Structurally normal pulmonic valve without significant stenosis. There is no pulmonic regurgitation. Pericardium Normal pericardium without effusion. Aorta Normal ascending aorta dimension. IVC The inferior vena cava appears normal. CONCLUSIONS Normal left ventricular size, systolic function and wall thickness, with no regional wall motion abnormalities. Left ventricular ejection fraction is estimated at 60 %. Grade I/IV diastolic dysfunction (abnormal relaxation filling pattern), normal to mildly elevated filling pressures. Moderate tricuspid valve regurgitation. There is no pericardial effusion. Right atrial pressure is around 5 mm of mercury. Belinda Cassidy MD (Electronically Signed) Final Date: 27 December 2024 18:13 S
[2024-12-27 01:22] LABS: Troponin(5th) Baseline 22 ng/L (0-10)
[2024-12-27 01:24] LABS: D Dimer 0.42 ug/mLFEU (0-0.59)
[2024-12-27 01:30] LABS: NT Pro B Type Natriuretic Pept 345 pg/mL (0-125)
--- NOTE | 2024-12-27 02:54 | ECG_ITS ---
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: : 1950 Requested By: Arabella Vidal Order Number: [id number] Sendy MD: MINH POWELL Measurements Intervals [place] Rate: 56 P: 18 [place]: 210 QRS: -20 QRSD: 99 T: 24 QT: 445 QTc: 431 Interpretive Statements SINUS BRADYCARDIA WITH FIRST DEGREE AV BLOCK VOLTAGE CRITERIA FOR LVH [MEETS CRITERIA IN ONE OF: R(aVL), S(V1), R(V5), R(V5/V6)+S(V1)] NONSPECIFIC T-WAVE ABNORMALITY Compared to ECG 09/14/2022 16:49:39 First degree AV block now present T-wave abnormality now present Atrial flutter no longer present Myocardial infarct finding no longer present Electronically Signed On 12-28-2024 19:33:52 PUTTY GLAZER by MINH POWELL [email or web address]
[2024-12-27 03:26] LABS: Troponin 5 2HR 22.17 ng/L (0-10); Troponin 5 2HR Delta 0.17 ABS# (0-10)
[2024-12-27] MEDS: ipratropium-albuterol 3 mL Neb INHALATION ×5 (04:51→20:22)
--- NOTE | 2024-12-27 06:34 | ECG_ITS ---
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: : 1950 Requested By: Arabella Vidal Order Number: [id number] Sendy MD: MINH POWELL Measurements Intervals [place] Rate: 71 P: 26 NE: 210 QRS: -23 QRSD: 94 T: 46 QT: 431 QTc: 468 Interpretive Statements SINUS RHYTHM WITH FIRST DEGREE AV BLOCK BORDERLINE LEFT AXIS DEVIATION [QRS AXIS < -20] VOLTAGE CRITERIA FOR LVH [MEETS CRITERIA IN ONE OF: R(aVL), S(V1), R(V5), R(V5/V6)+S(V1)] NONSPECIFIC T-WAVE ABNORMALITY Compared to ECG 12/27/2024 02:45:13 Sinus bradycardia no longer present T-wave abnormality still present Electronically Signed On 12-28-2024 19:33:50 ULTRA SOUND TECHNICIAN by MINH POWELL [email or web address]
[2024-12-27] MEDS: methylPREDNISolone sod succ 40 mg/mL INJ IVP ×3 (06:47→17:29)
[2024-12-27 06:49] LABS: Glucose Point of Care 279 mg/dL (70-110)
[2024-12-27 07:14] LABS: Troponin 5 6HR 15.78 ng/L (0-10)
[2024-12-27 07:18] LABS: Troponin 5 6HR Delta -6.22 ng/L (0-12)
[2024-12-27] MEDS: budesonide 0.5 mg/2 mL Neb INHALATION ×2 (07:23→20:22)
[2024-12-27] MEDS: oxyCODONE 5 mg IR Tab/Cap 10 MG PO ×3 (09:34→20:23)
[2024-12-27] MEDS: atorvastatin 40 mg Tablet 20 MG PO (09:35)
[2024-12-27] MEDS: rivaroxaban 10 mg Tablet 20 MG PO (09:35)
[2024-12-27] MEDS: gabapentin 400 mg Capsule PO ×3 (09:35→20:23)
[2024-12-27] MEDS: metoprolol tartrate 50 mg Tablet PO ×2 (09:35→17:29)
[2024-12-27] MEDS: famotidine 20 mg Tablet PO ×2 (09:35→17:29)
[2024-12-27] MEDS: amlodipine 5 mg Tablet PO (09:35)
[2024-12-27] MEDS: insulin lispro 100 unit/1 mL SUBCUT ×4 (09:36→21:12)
[2024-12-27] MEDS: insulin glargine 100 units/1 mL 16 UNIT SUBCUT (10:56)
[2024-12-27 11:46] LABS: Glucose Point of Care 322 mg/dL (70-110)
--- NOTE | 2024-12-27 14:09 | PM.MISC ---
Miscellaneous Note Note: Seen this morning. Patient still requiring 3 L nasal cannula. Apparently at home she is not on an oxygen however was in the past. She complains of right upper quadrant pain. CT chest and pelvis reviewed from admission. No gallbladder pathology noted at this time. She states apparently she was post to have a cholecystectomy done in [place] however never made it to the appointment. Creatinine 1.6 on admission. No labs available this morning. Will order labs for this morning. Further recommendations to be made after reviewing labs. Continue to wean off oxygen as needed. I will continue Solu-Medrol 40 every 8 hours and I will add azithromycin. Patient does not have a known history of COPD from before. Will check echocardiogram. Awaiting results at this time. Lungs clear to auscultation no apparent wheezes rhonchi or crackles at this time. Diminished at bases. No lower extremity edema appreciated. Family present at bedside.
[2024-12-27 14:55] LABS: Basophils % 0.1 %; Hematocrit 40.4 % (36-47); Lymphocytes # 0.8 10^3/uL (0.8-4.8); Mean Corpuscular HGB Conc 31.9 g/dL (30-55); Mean Corpuscular Hemoglobin 29.2 pg (27-33); Mean Corpuscular Volume 91.4 fl (85-98); Mean Platelet Volume 10.7 fL (7.4-10.4); Monocytes # 0.1 10^3/uL (0.2-0.9); Monocytes % 1.1 %; Neutrophils % 91.3 %; Nucleated Red Blood Cells % 0 %; Platelet Count 242 10^3/cmm (157-399); Red Blood Count 4.42 10^6/uL (3.85-5.65); Red Cell Distribution Width 13.2 % (12.1-15.1); White Blood Count 10.84 10^3/uL (3.29-11.43)
[2024-12-27 15:12] LABS: Alanine Aminotransferase 16 U/L (0-33); Albumin Level 3.8 g/dL (3.5-5.2); Alkaline Phosphatase 64 U/L (35-105); Anion Gap 15.6 (5-19); Aspartate Amino Transferase 16 U/L (0-32); Blood Urea Nitrogen 32 mg/dL (8-23); Carbon Dioxide 25 mmol/L (22-29); Chloride 96 mmol/L (98-107); Creatinine Clr Calc Pharmacy 47.6318; Globulin 2.7 g/dL (1.3-4.6); Glucose 444 mg/dL (65-115); Osmolality Calculated 300 mOsm/kg (285-295); Potassium 4.6 mmol/L (3.5-5.1); Sodium 132 mmol/L (136-145); Total Bilirubin 0.2 mg/dL (0.15-1.2); Total Protein 6.5 g/dL (6.6-8.7)
[2024-12-27 16:57] LABS: Glucose Point of Care 446 mg/dL (70-110)
[2024-12-27 21:11] LABS: Glucose Point of Care 448 mg/dL (70-110)
[2024-12-27] MEDS: FUROsemide 10 mg/mL SDV 4mL 40 MG IVP (21:29)
[2024-12-28] VITALS (15 sets, daily range): BP systolic 144–182; BP diastolic 70–86; PULSE 55–85; RESP 15–20; TEMP 36.4–36.6; O2SAT 87–96
[2024-12-28] MEDS: oxyCODONE 5 mg IR Tab/Cap 10 MG PO ×3 (03:40→17:59)
[2024-12-28] MEDS: ipratropium-albuterol 3 mL Neb INHALATION ×2 (04:11→08:23)
[2024-12-28 05:29] LABS: Basophils % 0.2 %; Hematocrit 40.6 % (36-47); Lymphocytes # 1.3 10^3/uL (0.8-4.8); Lymphocytes % 12.7 %; Mean Corpuscular HGB Conc 31.8 g/dL (30-55); Mean Corpuscular Hemoglobin 29.9 pg (27-33); Monocytes # 0.7 10^3/uL (0.2-0.9); Monocytes % 6.4 %; Neutrophils # 8.34 10^3/uL (1.8-7.7); Neutrophils % 79.9 %; Nucleated Red Blood Cells % 0 %; Platelet Count 243 10^3/cmm (157-399); Red Blood Count 4.32 10^6/uL (3.85-5.65); Red Cell Distribution Width 13.2 % (12.1-15.1); White Blood Count 10.43 10^3/uL (3.29-11.43)
[2024-12-28 05:46] LABS: Anion Gap 14.6 (5-19); Blood Urea Nitrogen 33 mg/dL (8-23); Calcium 9.3 mg/dL (8.5-10.5); Carbon Dioxide 29 mmol/L (22-29); Chloride 97 mmol/L (98-107); Creatinine Clr Calc Pharmacy 52.6014; Glucose 269 mg/dL (65-115); Magnesium 2.1 mg/dL (1.7-2.3); Osmolality Calculated 299 mOsm/kg (285-295); Phosphorus 2.2 mg/dL (2.5-4.5); Potassium 4.6 mmol/L (3.5-5.1); Sodium 136 mmol/L (136-145)
[2024-12-28 06:45] LABS: Glucose Point of Care 260 mg/dL (70-110)
[2024-12-28] MEDS: budesonide 0.5 mg/2 mL Neb INHALATION (08:22)
[2024-12-28] MEDS: methylPREDNISolone sod succ 40 mg/mL INJ IVP (08:56)
[2024-12-28] MEDS: atorvastatin 40 mg Tablet 20 MG PO (08:56)
[2024-12-28] MEDS: gabapentin 400 mg Capsule PO (08:56)
[2024-12-28] MEDS: rivaroxaban 10 mg Tablet 20 MG PO (08:56)
[2024-12-28] MEDS: amlodipine 5 mg Tablet PO (08:57)
[2024-12-28] MEDS: metoprolol tartrate 50 mg Tablet PO ×2 (08:57→17:59)
[2024-12-28] MEDS: insulin lispro 100 unit/1 mL SUBCUT ×2 (08:57→12:04)
[2024-12-28] MEDS: famotidine 20 mg Tablet PO ×2 (08:57→17:59)
[2024-12-28] MEDS: insulin glargine 100 units/1 mL 25 UNIT SUBCUT (10:00)
[2024-12-28] MEDS: fixodent 39 gm Tube 1 APPLIC DENTAL (11:02)
[2024-12-28 11:43] LABS: Glucose Point of Care 247 mg/dL (70-110)
--- NOTE | 2024-12-28 12:34 | USR_ITS ---
PROCEDURE INFORMATION: Exam: US Abdomen, Limited; Right Upper Quadrant Exam date and time: 12/28/2024 6:06 PM Age: 74 years old Clinical indication: Abdominal pain; Localized; Right upper quadrant (ruq); Additional info: Ruq pain, patient had lunch. Nurse notified to keep her npo and will scan this TECHNIQUE: Imaging protocol: Real time ultrasound of the abdomen with image documentation. Limited exam focused on the right upper quadrant. COMPARISON: US renal BI* [id number] 09/13/2022 9:15 AM FINDINGS: Liver: Mild hepatomegaly. Echogenic, consistent with fatty infiltration. Gallbladder: Cholelithiasis without gallbladder wall thickening or pericholecystic fluid. Negative sonographic Dsouza's sign, as per the business planner. Biliary ducts: No stones. No ductal dilatation. Pancreas: Unremarkable as visualized. Right kidney: No mass. No definite stones. No hydronephrosis. US/US abdomen limited [id number] IMPRESSION: 1. Cholelithiasis without sonographic evidence of acute cholecystitis. 2. Mildly enlarged, fatty liver.
--- NOTE | 2024-12-28 15:03 | PM.DCS ---
Discharge Providers Date of Admission: 12/27/24 01:28 Date of Discharge: December 28, 2024 Attending Provider at Admission: Gabriel Michaud MD Attending Provider at Discharge: Natalie Munson MD Primary Care Provider: DOMINICK Vizcarra Diagnoses at Discharge Discharge Diagnosis (1) Respiratory failure: Status: Acute (2) CO2 narcosis: Status: Acute (3) NOEMI (acute kidney injury): Status: Acute (4) Atrial fibrillation: Status: Acute Qualifiers: Atrial fibrillation type: unspecified Qualified Code(s): I48.91 - Unspecified atrial fibrillation (5) Essential (primary) hypertension: Status: Acute (6) Type 2 diabetes mellitus: Status: Acute Qualifiers: Diabetes mellitus complication status: with hyperglycemia Diabetes mellitus senior care insulin use: without senior care use Qualified Code(s): E11.65 - Type 2 diabetes mellitus with hyperglycemia Reason for Visit Reason for Visit: upper right abd pain confusion Hospital Course Hospital Course Patient was admitted to the hospital for dizziness confusion right upper quadrant discomfort on the first day. She was found to be in CO2 narcosis and was hypoxic on room air. Apparently patient does have oxygen at home but does not wear it. CT chest abdomen pelvis was performed which did not show any acute pathology. She also had an NOEMI on admission for which PEREZ inhibitor was held and she was given IV fluids. Patient was on BiPAP overnight. Mental status improved next day. Creatinine improved next day as well. Lisinopril was stopped going forward and she was switched over to hydralazine to follow-up with her primary care doctor. CT chest and pelvis when performed on admission did show gallstones however no acute cholecystitis. Right upper quadrant ultrasound was ordered and she was asked to follow-up with general surgery as an outpatient. I discussed case with Dr. Rivera over the phone and discussed with him that I will be referring patient to him. Patient will also be given a sleep study to do as an outpatient which her family is stating that patient will probably not do however order was placed for her. She qualified for 2 L nasal cannula at time of discharge. She is not having any right upper quadrant pain at this time however does complain of mild right-sided pain around right hip area. She does have arthritis for which she takes pain meds at home. Denies a fall before coming in. At this time patient will be discharged home in stable condition to follow-up as an outpatient with her primary care doctor. No acute pathology identified warranting further hospitalization at this time. Vitals are stable. Physical Exam Narrative: General: Patient is awake and alert. Head: Normocephalic. Atraumatic. EOM intact. Cardiovascular: RRR. No gallops. No murmurs. Nonpitting lower extremity edema. Lungs: Moderate air movement. No wheezing. No crackles. No rales. On nasal cannula support. Abdomen: Normal bowel sounds, abdomen soft and nontender. Extremities: No cyanosis or clubbing. Musculoskeletal: No swollen or erythematous joints. Discharge Data Studies Completed and Pending Completed Studies During Hospitalization Category Date Time Status CT chest abdomen pelvis [[place] [id number] Cat Scan 12/26/24 23:25 Completed ] Stat XR chest 1V portable [id number] Stat Exams 12/26/24 21:00 Completed CV. echo complete* [id number] Stat Ultrasound 12/27/24 01:13 Completed Pending at discharge Category Date Time Status Blood Culture Stat Lab 12/26/24 22:30 Results US abdomen limited [id number] Urgent Ultrasound 12/28/24 12:34 Ordered Radiology Impressions Chest X-Ray 12/26/24 21:00 IMPRESSION: No acute infiltrate. No significant change compared with 09/14/2022 Chest/Abdomen/Pelvis CT 12/26/24 23:25 IMPRESSION: 1. Old granulomatous disease. 2. No acute findings in the chest. IMPRESSION: 1. Fatty liver 2. No acute findings in the abdomen or pelvis. Laboratory Results WBC 10.43 10^3/uL (3.29-11.43) 12/28/24 04:31 RBC 4.32 10^6/uL (3.85-5.65) 12/28/24 04:31 Hgb 12.90 g/dL (11.27-16.99) 12/28/24 04:31 Hct 40.6 % (36-47) 12/28/24 04:31 MCV 94.0 fl (85-98) 12/28/24 04:31 MCH 29.9 pg (27-33) 12/28/24 04:31 MCHC 31.8 g/dL (30-55) 12/28/24 04:31 RDW 13.2 % (12.1-15.1) 12/28/24 04:31 Plt Count 243 10^3/cmm (157-399) 12/28/24 04:31 MPV 11.0 fL (7.4-10.4) H 12/28/24 04:31 Neut % (Auto) 79.9 % 12/28/24 04:31 Lymph % (Auto) 12.7 % 12/28/24 04:31 [place] % (Auto) 6.4 % 12/28/24 04:31 Eos % (Auto) 0.0 % 12/28/24 04:31 Baso % (Auto) 0.2 % 12/28/24 04:31 Neut # (Auto) 8.34 10^3/uL (1.8-7.7) H 12/28/24 04:31 Lymph # (Auto) 1.3 10^3/uL (0.8-4.8) 12/28/24 04:31 [place] # (Auto) 0.7 10^3/uL (0.2-0.9) 12/28/24 04:31 Eos # (Auto) 0.0 10^3/uL (0.0-0.8) 12/28/24 04:31 Baso # (Auto) 0.0 10^3/uL (0.0-0.1) 12/28/24 04:31 Nucleated RBC % (auto) 0 % 12/28/24 04:31 Nucleated RBCs # 0.0 /100WBC 12/28/24 04:31 D-Dimer 0.42 ug/mLFEU (0-0.59) 12/26/24 21:54 Specimen Type Arterial 12/26/24 22:53 Sample Site Brachial, left 12/26/24 22:53 ABG pH 7.29 (7.35-7.45) L 12/26/24 22:53 ABG pCO2 59.7 mmHg (35-45) H 12/26/24 22:53 ABG pO2 67.8 mmHg (80.0-100.0) L 12/26/24 22:53 ABG HCO3 28.9 mmol/L (22-26) H 12/26/24 22:53 ABG O2 Saturation 92.0 12/26/24 22:53 ABG Base Excess 1.0 mmol/L (-2.0-2.0) 12/26/24 22:53 Reji Test N/a 12/26/24 22:53 A-a O2 Gradient 1.6 mmHg (5-10) L 12/26/24 22:53 Hematocrit 42.2 % (37-47) 12/26/24 22:53 Hgb O2 Saturation 90.5 % (95-100) L 12/26/24 22:53 Carboxyhemoglobin 0.5 %THgb (0.4-20.1) 12/26/24 22:53 Methemoglobin 1.1 % (0.4-1.5) 12/26/24 22:53 Total Hemoglobin 13.8 g/dL (12-16) 12/26/24 22:53 Sodium 139.0 mmol/L (131-143) 12/26/24 22:53 Potassium 4.2 mmol/L (3.5-5.0) 12/26/24 22:53 Glucose 67.0 mg/dL (70-115) L 12/26/24 22:53 Ionized Calcium 1.3 mmol/L (1.1-1.4) 12/26/24 22:53 O2 Delivery Device Nc 12/26/24 22:53 O2 Liters/Min 2.0 % 12/26/24 22:53 Brand Advisor ID [email or web address] 12/26/24 22:53 Sodium 136 mmol/L (136-145) 12/28/24 04:31 Potassium 4.6 mmol/L (3.5-5.1) 12/28/24 04:31 Chloride 97 mmol/L (98-107) L 12/28/24 04:31 Carbon Dioxide 29 mmol/L (22-29) 12/28/24 04:31 Anion Gap 14.6 (5-19) 12/28/24 04:31 BUN 33 mg/dL (8-23) H 12/28/24 04:31 Creatinine 1.1 mg/dL (0.5-0.9) H 12/28/24 04:31 GFR Calculation Not Reportable 12/28/24 04:31 Glucose 269 mg/dL (65-115) H 12/28/24 04:31 POC Glucose 247 mg/dL (70-110) H 12/28/24 11:39 Calculated Osmolality 299 mOsm/kg (285-295) H 12/28/24 04:31 Lactic Acid 1.3 mmol/L (0.5-2.2) 12/26/24 21:54 Calcium 9.3 mg/dL (8.5-10.5) 12/28/24 04:31 Phosphorus 2.2 mg/dL (2.5-4.5) L 12/28/24 04:31 Magnesium 2.1 mg/dL (1.7-2.3) 12/28/24 04:31 Total Bilirubin 0.2 mg/dL (0.15-1.2) 12/27/24 14:47 AST 16 U/L (0-32) 12/27/24 14:47 ALT 16 U/L (0-33) 12/27/24 14:47 Alkaline Phosphatase 64 U/L (35-105) 12/27/24 14:47 Troponin T Baseline 22 ng/L (0-10) H 12/27/24 01:00 Troponin T 120 Minute 22.17 ng/L (0-10) H 12/27/24 02:52 Delta Troponin T 0.17 ABS# (0-10) 12/27/24 02:52 Troponin T Hi Sens 6Hr 15.78 ng/L (0-10) H 12/27/24 06:39 Troponin T Hi Sens 6Hr Delta -6.22 ng/L (0-12) L 12/27/24 06:39 C-Reactive Protein 11.4 mg/L (0.0-4.9) H 12/26/24 21:54 NT-Pro-B Natriuret Pep 345 pg/mL (0-125) H 12/27/24 01:00 Total Protein 6.5 g/dL (6.6-8.7) L 12/27/24 14:47 Albumin 3.8 g/dL (3.5-5.2) 12/27/24 14:47 Globulin 2.7 g/dL (1.3-4.6) 12/27/24 14:47 Urine Color Yellow (Yellow) 12/26/24 22:42 Urine Appearance Clear (CLEAR) 12/26/24 22:42 Urine pH 5.0 (5-7) 12/26/24 22:42 Ur Specific [place] 1.015 (1.005-1.030) 12/26/24 22:42 Urine Protein Negative (Negative) 12/26/24 22:42 Urine Glucose (UA) Negative (Normal) 12/26/24 22:42 Urine Ketones Negative (Negative) 12/26/24 22:42 Urine Blood Negative (Negative) 12/26/24 22:42 Urine Nitrate Negative (Negative) 12/26/24 22:42 Urine Bilirubin Negative (Negative) 12/26/24 22:42 Urine Urobilinogen 0.2 mg/dL (Negative) 12/26/24 22:42 Ur Leukocyte Esterase Negative (Negative) 12/26/24 22:42 Urine RBC 0-2 /hpf (0-2) 12/26/24 22:42 Urine WBC 0-5 /hpf (0-5) 12/26/24 22:42 Ur Squamous Epith Cells 0-5 /hpf (0-5) 12/26/24 22:42 Amorphous Sediment Not Reportable 12/26/24 22:42 Urine Bacteria None seen /hpf (NONE) 12/26/24 22:42 Hyaline Casts 5.77 /lpf 12/26/24 22:42 Coronavirus (PCR) Negative (Negative) 12/26/24 21:54 Influenza A (PCR) Negative (Negative) 12/26/24 21:54 Influenza Type B (PCR) Negative (Negative) 12/26/24 21:54 RSV (PCR) Negative (Negative) 12/26/24 21:54 Vitals Last Vital Signs Temp 97.8 F 12/28/24 08:00 Pulse 65 12/28/24 12:26 Resp 20 H 12/28/24 12:26 BP 145/86 12/28/24 12:26 Pulse Ox 93 12/28/24 12:26 O2 Del Method Nasal Cannula 12/28/24 12:26 O2 Flow Rate 2 12/28/24 09:59 FiO2 45 12/27/24 07:15 Discharge Plan Discharge Patient Disposition: Home Condition: Stable Prescriptions: New hydralazine 25 mg tablet 25 mg PO TID Qty: 90 0RF prednisone 20 mg tablet 40 mg PO DAILY 3 Days Qty: 6 0RF Rx Instructions: start 12/29 Continued Xarelto 10 mg tablet See Rx Instructions .ROUTE .COMPLEX Qty: 90 1RF Dose Instruction: TAKE ONE TABLET BY MOUTH EVERY DAY Rx Instructions: TAKE ONE TABLET BY MOUTH EVERY DAY simvastatin 40 mg tablet See Rx Instructions .ROUTE .COMPLEX Qty: 90 1RF Dose Instruction: TAKE ONE TABLET BY MOUTH EVERY DAY Rx Instructions: TAKE ONE TABLET BY MOUTH EVERY DAY fenofibrate 160 mg tablet See Rx Instructions .ROUTE .COMPLEX Qty: 90 1RF Dose Instruction: TAKE ONE TABLET BY MOUTH DAILY Rx Instructions: TAKE ONE TABLET BY MOUTH DAILY bumetanide 1 mg tablet See Rx Instructions .ROUTE .COMPLEX Qty: 60 5RF Dose Instruction: TAKE ONE TABLET BY MOUTH ONE TO TWO TIMES DAILY NEEDED FOR EDEMA Rx Instructions: TAKE ONE TABLET BY MOUTH ONE TO TWO TIMES DAILY NEEDED FOR EDEMA amlodipine 5 mg tablet See Rx Instructions .ROUTE .COMPLEX Qty: 90 1RF Dose Instruction: TAKE ONE TABLET BY MOUTH EVERY DAY Rx Instructions: TAKE ONE TABLET BY MOUTH EVERY DAY famotidine 20 mg tablet See Rx Instructions .ROUTE .COMPLEX Qty: 180 1RF Dose Instruction: TAKE ONE TABLET BY MOUTH TWICE DAILY Rx Instructions: TAKE ONE TABLET BY MOUTH TWICE DAILY insulin degludec [Tresiba FlexTouch U-100] 100 unit/mL (3 mL) insulin pen 20 unit SUBCUT QAM Qty: 15 5RF (DME) BD Luer-Beth Syringe 3 mL 25 gauge x 1 syringe See Rx Instructions .ROUTE .COMPLEX Qty: 1 5RF Dose Instruction: USE ONE SYRINGE MONTHLY TO INJECT B12 Rx Instructions: USE ONE SYRINGE MONTHLY TO INJECT B12 cyanocobalamin (vitamin B-12) 1,000 mcg/mL solution See Rx Instructions .ROUTE .COMPLEX Qty: 3 1RF Dose Instruction: INJECT ONE ML UNDER SKIN EVERY 30 DAYS Rx Instructions: INJECT ONE ML UNDER SKIN EVERY 30 DAYS glipizide 10 mg tablet extended release 24hr See Rx Instructions .ROUTE .COMPLEX Qty: 90 1RF Dose Instruction: TAKE ONE TABLET BY MOUTH EVERY DAY Rx Instructions: TAKE ONE TABLET BY MOUTH EVERY DAY metformin 1,000 mg tablet See Rx Instructions .ROUTE .COMPLEX Qty: 180 1RF Dose Instruction: TAKE ONE TABLET BY MOUTH TWICE DAILY Rx Instructions: TAKE ONE TABLET BY MOUTH TWICE DAILY gabapentin 800 mg tablet See Rx Instructions .ROUTE .COMPLEX Qty: 270 1RF Dose Instruction: TAKE ONE TABLET BY MOUTH THREE TIMES DAILY Rx Instructions: TAKE ONE TABLET BY MOUTH THREE TIMES DAILY metoprolol tartrate 50 mg tablet See Rx Instructions .ROUTE .COMPLEX Qty: 360 1RF Dose Instruction: TAKE TWO TABLETS BY MOUTH TWICE DAILY Rx Instructions: TAKE TWO TABLETS BY MOUTH TWICE DAILY magnesium oxide 400 mg (241.3 mg magnesium) tablet See Rx Instructions .ROUTE .COMPLEX Qty: 90 1RF Dose Instruction: TAKE ONE TABLET BY MOUTH DAILY Rx Instructions: TAKE ONE TABLET BY MOUTH DAILY (DME) glucometer testing kit See Rx Instructions .Route .MEDSUPPLY Qty: 1 0RF Rx Instructions: Glucometer testing kit, check blood sugars 3 times daily -Lancets #100, strips #100 (DME) glucometer testing kit See Rx Instructions .Route .MEDSUPPLY Qty: 1 0RF Rx Instructions: Glucometer testing kit, check blood sugars 3 times daily, after meals based on sliding scale provided Lancets #100 Strips #100 oxycodone 15 mg tablet 15 mg PO Q4H PRN (Reason: Pain) levalbuterol tartrate 45 mcg/actuation HFA aerosol inhaler 2 puff INHALATION Q6H PRN (Reason: Shortness Of Breath) ondansetron 8 mg tablet,disintegrating 8 mg PO Q6H oxycodone-acetaminophen 7.5-325 mg tablet 1 tab PO Q8H Held lisinopril 40 mg tablet See Rx Instructions .ROUTE .COMPLEX Qty: 180 1RF Hold Instructions: see pcp Dose Instruction: TAKE ONE TABLET BY MOUTH TWICE DAILY Rx Instructions: TAKE ONE TABLET BY MOUTH TWICE DAILY Discharge Orders: Discharge Order (Routine); Ordered 12/28/24 Ordered By: Natalie Munson Other Ambulatory Orders: DME: Oxygen (Order) Location: None Selected Ordered By: Natalie Munson Sleep Study W Sleep Stage (Routine) Timeframe: 1 Day Facility: [facility] - Location: [facility] [place] Ordered By: Natalie Munson Referrals: Martin Rivera MD [Physician] - 4-7 days (gall stones We have notified your physician's clinic of the need for a follow-up appointment to be scheduled. If you have not heard from them within the next 2 business days, please call them directly. ) Sheri Black FNP [Primary Care Provider] - 1-3 days Discharge Diet: Cardiac and Diabetic Discharge Activity: Resume usual activity and Oxygen as instructed Patient Instructions: Prednisone (By mouth), Hydralazine (By mouth), Gallstones (GEN), Opioid Safety Discharge Attestations Time Spent in Discharge Care*: greater than 30 min Quality Metrics Clinical Quality Measures [ No reported AMI, CVA or VTE this stay] Coding Level of Care Code Acute Code for Chg Fwd Diagnoses Respiratory failure J96.90 CO2 narcosis R06.89 NOEMI (acute kidney injury) N17.9 Atrial fibrillation, unspecified type I48.91 Atrial fibrillation type: unspecified Essential (primary) hypertension I10 Type 2 diabetes mellitus with hyperglycemia, without long-term current use of insulin E11.65 Diabetes mellitus complication status: with hyperglycemia 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
[2024-12-28 16:59] LABS: Glucose Point of Care 268 mg/dL (70-110)
== END 2024-12-28 18:45 | disposition home or self-care (01) ==
LOC: ER 12-27 00:51 → MEDSURG 12-27 01:28
PROVIDERS: Emergency Medicine; Admitting Provider Internal Medicine; Emergency Provider Emergency Medicine; PCP Nurse Practitioner Family; Visit Provider Internal Medicine
DX: J96.01 Acute respiratory failure with hypoxia (principal); I48.91 Unspecified atrial fibrillation; K21.9 Gastro-esophageal reflux disease without esophagitis; Z11.52 Encounter for screening for COVID-19; E66.9 Obesity, unspecified; Z68.41 Body mass index [BMI] 40.0-44.9, adult; E11.40 Type 2 diabetes mellitus with diabetic neuropathy, unspecified; Z79.84 Long term (current) use of oral hypoglycemic drugs; Z79.4 Long term (current) use of insulin; Z79.899 Other long term (current) drug therapy; E78.5 Hyperlipidemia, unspecified; R10.9 Unspecified abdominal pain; R42 Dizziness and giddiness; G93.40 Encephalopathy, unspecified; E53.8 Deficiency of other specified B group vitamins; N17.9 Acute kidney failure, unspecified; E11.65 Type 2 diabetes mellitus with hyperglycemia; K80.20 Calculus of gallbladder without cholecystitis without obstruction
CPT/HCPCS: 36415; 36416; 36600; 71045; 71250; 74176; 76705; 80048; 80051; 80053; 81001; 82330; 82805; 82962; 83605; 83735; 83880; 84100; 84484; 85025; 85378; 86140; 87040; 87637; 93005; 93306; 94640; 94660; 94760; 96361; 96372; 96374; 96375; 96376; 99285; G0378; J1815; J1940; J2919; J7030; J7613; J7626

== ENCOUNTER → 2025-01-03 09:51 | Outpatient (BNVA) | payer MEDICARE, MEDICAID, SELFPAY | PROVIDERS: PCP Nurse Practitioner Family; Visit Provider Student in an Organized Health Care Education/Training Program | DX: K82.9 Disease of gallbladder, unspecified (principal); K81.1 Chronic cholecystitis | CPT/HCPCS: 99204 ==

== ENCOUNTER 2025-01-18 07:05 | Inpatient (IN) | payer MEDICARE, MEDICAID, SELFPAY ==
[2025-01-18] VITALS (25 sets, daily range): BP systolic 102–179; BP diastolic 62–98; PULSE 52–72; RESP 16–31; TEMP 36.9–37.8; O2SAT 92–95; BMI 39.1
--- NOTE | 2025-01-18 07:11 | ECG_ITS ---
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 Measurements Intervals [place] Rate: 66 P: 19 KS: 197 QRS: 79 QRSD: 89 T: 19 QT: 405 QTc: 427 Interpretive Statements SINUS RHYTHM Compared to ECG 12/27/2024 06:34:14 First degree AV block no longer present Left ventricular hypertrophy no longer present T-wave abnormality no longer present Electronically Signed On 01-18-2025 19:27:06 [employer] NAVIGATOR by Samir Hendrickson M.D. [email or web address]
--- NOTE | 2025-01-18 07:22 | XRR_ITS ---
PROCEDURE INFORMATION: Exam: XR Chest Exam date and time: 01/18/2025 7:26 AM Age: 74 years old Clinical indication: Cough and dyspnea; Additional info: Dyspnea/cough TECHNIQUE: Imaging protocol: Radiologic exam of the chest. Views: 1 view. COMPARISON: 1[place] [id number] 12/26/2024 11:42 PM 2. CR (CHEST, ) 12/26/2024 9:27 PM FINDINGS: Lungs: There has been development of mild linear right basilar consolidation. Pleural spaces: Unremarkable. No pleural effusion. No pneumothorax. Heart/Mediastinum: The heart is enlarged. Diaphragm: There is unchanged moderate to marked elevation of the right hemidiaphragm. Bones/joints: Unremarkable. XR/XR chest 1V portable [id number] IMPRESSION: Stable [id number] elevation of the right hemidiaphragm with development of a linear right basilar consolidation which may reflect pneumonia versus atelectasis
--- NOTE | 2025-01-18 07:29 | W.ED.CHESTPA ---
HPI - Chest Pain General: Chief Complaint: Chest Pain Stated Complaint: chest pain; sob Time Seen by Provider: 01/18/25 07:13 History of Present Illness: 74-year-old female presents emergency room with complaint of chest pain and shortness of breath was seen 2 days ago and diagnosed with pneumonia they advised hospitalization but she evidently refused. She does not wear oxygen at home. She is now requiring 2 L by nasal cannula to maintain sats in the mid 90s. She has had increasing orthopnea the last several days. She normally will sleep with a couple of pillows now she is up to 5 pillows to prevent symptoms she has noticed increased swelling in her legs. She has a history of atrial fibrillation and is on anticoagulants she is also diabetic she denies any chest pain at this time. Her rate is well-controlled. Associated symptoms: Reports dyspnea; Deny abdominal pain or fever(s) Related Data Home Medications ?Medication ?Instructions ?Recorded ?Confirmed levalbuterol tartrate 45 2 puff inhalation Q6H PRN 07/01/22 01/18/25 mcg/actuation aerosol inhaler Shortness Of Breath oxycodone 15 mg tablet 15 mg PO Q4H PRN Pain 07/01/22 01/18/25 ondansetron 8 mg disintegrating 8 mg PO Q6H PRN Nausea And Vomiting 12/27/24 01/18/25 tablet oxycodone-acetaminophen 7.5 mg-325 1 tab PO Q8H PRN Pain 12/27/24 01/18/25 mg tablet amlodipine 5 mg tablet 5 mg PO DAILY 01/18/25 01/18/25 cyanocobalamin (vitamin B-12) 1,000 mcg SUBCUT .Q30D 01/18/25 01/18/25 1,000 mcg/mL injection solution ergocalciferol (vitamin D2) 1,250 50,000 unit PO Q7D 01/18/25 01/18/25 mcg (50,000 unit) capsule famotidine 20 mg tablet 20 mg PO BID 01/18/25 01/18/25 fenofibrate 160 mg tablet 160 mg PO DAILY 01/18/25 01/18/25 gabapentin 800 mg tablet 800 mg PO TID 01/18/25 01/18/25 glipizide 10 mg tablet, extended 10 mg PO DAILY 01/18/25 01/18/25 release 24 hr levofloxacin 500 mg tablet 500 mg PO DAILY 01/18/25 01/18/25 magnesium oxide 400 mg (241.3 mg 400 mg PO DAILY 01/18/25 01/18/25 magnesium) tablet metformin 1,000 mg tablet 1,000 mg PO BID 01/18/25 01/18/25 metoprolol tartrate 50 mg tablet 50 mg PO BID 01/18/25 01/18/25 rivaroxaban 10 mg tablet (Xarelto) 10 mg PO DAILY 01/18/25 01/18/25 simvastatin 40 mg tablet 40 mg PO DAILY 01/18/25 01/18/25 Previous Rx's ?Medication ?Instructions ?Recorded glucometer testing kit #1 ea 09/18/22 glucometer testing kit #1 ea 09/18/22 insulin degludec 100 unit/mL (3 20 unit (0.2 mL) SUBCUT QAM #15 mL 05/27/24 mL) subcutaneous pen (Tresiba FlexTouch U-100 insulin) syringe with needle 3 mL 25 gauge #1 ea 05/31/24 x 1 (BD Luer-Beth Syringe) hydralazine 50 mg tablet 50 mg PO TID #90 tabs 12/28/24 Allergies Allergy/AdvReac Type Severity Reaction Status Date / Time No Known Allergies Allergy Verified 01/03/25 09:53 Review of Systems Const: Denies: fever(s) or chills Card: Denies: chest pain Resp: Reports: dyspnea, non-productive cough, wheezing and chest congestion GI: Denies: abdominal pain : Denies: dysuria, urinary frequency or urinary urgency Musc: Denies: neck pain or back pain Skin/Breast: Denies: rash PFSH ED PFSH: Medical History NOEMI (acute kidney injury) Type 2 diabetes mellitus B12 deficiency Vitamin D deficiency GERD (gastroesophageal reflux disease) Atrial fibrillation Cholecystitis Abnormal transaminases Cholelithiasis Acute encephalopathy Acute cystitis Wound of right foot Type 2 diabetes mellitus without complications Obesity, unspecified Chronic osteoarthritis Bunion of right foot Encounter for counseling for care management of patient with chronic conditions and complex health needs using nurse-based model Seasonal allergies Gastro-esophageal reflux disease without esophagitis Neuropathy Dyslipidemia Chronic back pain Essential (primary) hypertension Surgical History Hx of knee surgery (~10/2000) left Family History Mother Cancer colon Father Cancer pancreatic Family/Other CAD (coronary artery disease) Social History Smoking and tobacco/nicotine status: never used tobacco/nicotine Second hand smoke exposure: No Alcohol intake: never Substance/Drug Use: never Lives independently: Yes Household members: significant other Marital status: Life Partner Current occupational status: retired Current gender identity: Female Physical Exam Const: GENERAL APPEARANCE: cooperative ORIENTATION/CONSCIOUSNESS: Yes awake, Yes oriented to person, Yes oriented to place and Yes oriented to time HENMT: COMMON NORMALS: normocephalic, atraumatic and hearing grossly normal bilaterally HEAD & SCALP: normocephalic and atraumatic Resp: EFFORT & INSPECTION: Yes tachypneic and Yes uses accessory muscles AUSCULTATION: wheezes Cardio: COMMON NORMALS: regular rate, regular rhythm and No murmurs present (Cardio) RATE: regular rate RHYTHM: regular rhythm GI: COMMON NORMALS: Soft to palpation and No hepatosplenomegaly present AUSCULTATION: Yes normoactive bowel sounds PALPATION: Yes Soft to palpation, No Tenderness to palpation present (GI), No Guarding due to palpation present (GI) and Yes No hepatosplenomegaly present Extremity: COMMON NORMALS: normal to inspection, capillary refill normal, no clubbing, cyanosis or edema, no calf tenderness and no pedal edema Neuro: SENSORIUM/ORIENTATION: Yes oriented to person, Yes oriented to place and Yes oriented to time Skin: COMMON NORMALS: no rashes or lesions noted GENERAL SKIN EXAM: no rashes or lesions noted Course Vital Signs: Vital signs: Vital Signs Temperature 98.5 F 01/18/25 15:42 Pulse Rate 64 01/18/25 16:11 Respiratory Rate 22 H 01/18/25 16:11 Blood Pressure 176/73 01/18/25 15:42 Pulse Oximetry 94 01/18/25 16:11 Oxygen Delivery Me thod Nasal Cannula 01/18/25 16:11 Oxygen Flow Rate 2.5 01/18/25 16:11 MDM - Chest Pain Medical Decision Making No signs of overt heart failure at this time. She does have significant elevation of her right hemidiaphragm which is chronic. Her COVID was positive she is requiring 3 L at rest. I do not believe she is safe to go home at this time concerned with her obesity and no other underlying medical problems diabetes and hypertension her symptoms may worsen before they begin to improve. Discussed Dr. Soto will place her on observation. Medical Records I reviewed the patient's medical records. Lab Data I reviewed the patient's lab results. 01/18/25 07:44 01/18/25 07:44 Radiology Impressions Chest X-Ray 01/18/25 07:22 IMPRESSION: Stable [id number] elevation of the right hemidiaphragm with development of a linear right basilar consolidation which may reflect pneumonia versus atelectasis Laboratory Results WBC 7.63 10^3/uL (3.29-11.43) 01/18/25 07:44 RBC 3.98 10^6/uL (3.85-5.65) 01/18/25 07:44 Hgb 12.00 g/dL (11.27-16.99) 01/18/25 07:44 Hct 36.5 % (36-47) 01/18/25 07:44 MCV 91.7 fl (85-98) 01/18/25 07:44 MCH 30.2 pg (27-33) 01/18/25 07:44 MCHC 32.9 g/dL (30-55) 01/18/25 07:44 RDW 13.7 % (12.1-15.1) 01/18/25 07:44 Plt Count 190 10^3/cmm (157-399) 01/18/25 07:44 MPV 10.0 fL (7.4-10.4) 01/18/25 07:44 Neut % (Auto) 72.3 % 01/18/25 07:44 Lymph % (Auto) 8.7 % 01/18/25 07:44 Laurens % (Auto) 12.5 % 01/18/25 07:44 Eos % (Auto) 5.2 % 01/18/25 07:44 Baso % (Auto) 0.4 % 01/18/25 07:44 Neut # (Auto) 5.52 10^3/uL (1.8-7.7) 01/18/25 07:44 Lymph # (Auto) 0.7 10^3/uL (0.8-4.8) L 01/18/25 07:44 Laurens # (Auto) 1.0 10^3/uL (0.2-0.9) H 01/18/25 07:44 Eos # (Auto) 0.4 10^3/uL (0.0-0.8) 01/18/25 07:44 Baso # (Auto) 0.0 10^3/uL (0.0-0.1) 01/18/25 07:44 Nucleated RBC % (auto) 0 % 01/18/25 07:44 Nucleated RBCs # 0.0 /100WBC 01/18/25 07:44 Specimen Type Arterial 01/18/25 07:42 Sample Site Brachial, left 01/18/25 07:42 ABG pH 7.40 (7.35-7.45) 01/18/25 07:42 ABG pCO2 43.8 mmHg (35-45) 01/18/25 07:42 ABG pO2 75.4 mmHg (80.0-100.0) L 01/18/25 07:42 ABG PO2/FiO2 Ratio 269 01/18/25 07:42 ABG HCO3 26.9 mmol/L (22-26) H 01/18/25 07:42 ABG O2 Saturation 95.9 01/18/25 07:42 ABG Base Excess 1.6 mmol/L (-2.0-2.0) 01/18/25 07:42 Reji Test N/a 01/18/25 07:42 A-a O2 Gradient 9.2 mmHg (5-10) 01/18/25 07:42 Hematocrit 37.5 % (37-47) 01/18/25 07:42 Hgb O2 Saturation 94.3 % (95-100) L 01/18/25 07:42 Carboxyhemoglobin 1.1 %THgb (0.4-20.1) 01/18/25 07:42 Methemoglobin 0.5 % (0.4-1.5) 01/18/25 07:42 Total Hemoglobin 12.2 g/dL (12-16) 01/18/25 07:42 Sodium 138.0 mmol/L (131-143) 01/18/25 07:42 Potassium 4.0 mmol/L (3.5-5.0) 01/18/25 07:42 Glucose 149.0 mg/dL (70-115) H 01/18/25 07:42 Ionized Calcium 1.2 mmol/L (1.1-1.4) 01/18/25 07:42 O2 Delivery Device Nc 01/18/25 07:42 O2 Liters/Min 2.0 % 01/18/25 07:42 FiO2 28.0 % 01/18/25 07:42 Warp Knit Operator ID Amh 01/18/25 07:42 Sodium 136 mmol/L (136-145) 01/18/25 07:44 Potassium 4.4 mmol/L (3.5-5.1) 01/18/25 07:44 Chloride 99 mmol/L (98-107) 01/18/25 07:44 Carbon Dioxide 23 mmol/L (22-29) 01/18/25 07:44 Anion Gap 18.4 (5-19) 01/18/25 07:44 BUN 24 mg/dL (8-23) H 01/18/25 07:44 Creatinine 0.9 mg/dL (0.5-0.9) 01/18/25 07:44 GFR Calculation Not Reportable 01/18/25 07:44 Glucose 160 mg/dL (65-115) H 01/18/25 07:44 Calculated Osmolality 289 mOsm/kg (285-295) 01/18/25 07:44 Lactic Acid 1.8 mmol/L (0.5-2.2) 01/18/25 07:44 Calcium 8.6 mg/dL (8.5-10.5) 01/18/25 07:44 Total Bilirubin 0.5 mg/dL (0.15-1.2) 01/18/25 07:44 AST 25 U/L (0-32) 01/18/25 07:44 ALT 23 U/L (0-33) 01/18/25 07:44 Alkaline Phosphatase 60 U/L (35-105) 01/18/25 07:44 Troponin T Baseline 28 ng/L (0-10) H 01/18/25 07:44 Troponin T 120 Minute 25.21 ng/L (0-10) H 01/18/25 09:37 Delta Troponin T -2.79 ABS# (0-10) L 01/18/25 09:37 NT-Pro-B Natriuret Pep 1328 pg/mL (0-125) H 01/18/25 07:44 Total Protein 6.1 g/dL (6.6-8.7) L 01/18/25 07:44 Albumin 3.6 g/dL (3.5-5.2) 01/18/25 07:44 Globulin 2.5 g/dL (1.3-4.6) 01/18/25 07:44 Procalcitonin 0.24 ng/mL (0-0.5) 01/18/25 07:44 Influenza A (PCR) Negative (Negative) 01/18/25 08:06 Influenza Type B (PCR) Negative (Negative) 01/18/25 08:06 RSV (PCR) Negative (Negative) 01/18/25 08:06 SARS-CoV-2 (PCR) Positive (Negative) A 01/18/25 08:06 All radiology interpretation(s) finalized by discharge Discharge Plan Discharge Patient Disposition: Admitted As Inpatient Admit Provider: Cara Soto Clinical Impression: COVID-19, Type 2 diabetes mellitus, Acute hypoxemic respiratory failure, Obesity Condition: Stable Coding Level of Care Code ED Farm Machine Tender for Jorje Blackmon
[2025-01-18 07:51] LABS: Basophils % 0.4 %; Eosinophils # 0.4 10^3/uL (0.0-0.8); Eosinophils % 5.2 %; Hematocrit 36.5 % (36-47); Lymphocytes # 0.7 10^3/uL (0.8-4.8); Lymphocytes % 8.7 %; Mean Corpuscular HGB Conc 32.9 g/dL (30-55); Mean Corpuscular Hemoglobin 30.2 pg (27-33); Mean Corpuscular Volume 91.7 fl (85-98); Monocytes % 12.5 %; Neutrophils # 5.52 10^3/uL (1.8-7.7); Neutrophils % 72.3 %; Nucleated Red Blood Cells % 0 %; Platelet Count 190 10^3/cmm (157-399); Red Blood Count 3.98 10^6/uL (3.85-5.65); Red Cell Distribution Width 13.7 % (12.1-15.1); White Blood Count 7.63 10^3/uL (3.29-11.43)
[2025-01-18 08:00] LABS: ABG PCO2 43.8 mmHg (35-45); Alveolar-Arterial Oxygen Gradi 9.2 mmHg (5-10); Arterial Blood Gas Hematocrit 37.5 % (37-47); Base Excess ABG 1.6 mmol/L (-2.0-2.0); Blood Gas Operator Identificat AMH; Blood Gas Sample Site Brachial, left; Blood Gas Sample Type Arterial; Carboxyhemoglobin 1.1 %THgb (0.4-20.1); HCO3 ABG 26.9 mmol/L (22-26); HGB O2 Sat 94.3 % (95-100); Ionized Calcium Level - ABG 1.2 mmol/L (1.1-1.4); Methemoglobin 0.5 % (0.4-1.5); Oxygen Device NC; Oxygen Saturation ABG 95.9; PO2 ABG 75.4 mmHg (80.0-100.0); PO2 FiO2 Ratio Arterial Blood 269; Total Hemoglobin 12.2 g/dL (12-16)
[2025-01-18] MEDS: aspirin 81 mg Chew Tablet 324 MG PO (08:08)
[2025-01-18 08:21] LABS: Troponin(5th) Baseline 28 ng/L (0-10)
[2025-01-18 08:22] LABS: Lactic Sepsis W/Reflex 1.8 mmol/L (0.5-2.2)
[2025-01-18 08:35] LABS: NT Pro B Type Natriuretic Pept 1328 pg/mL (0-125); Procalcitonin 0.24 ng/mL (0-0.5)
--- NOTE | 2025-01-18 08:43 | ECG_ITS ---
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 Measurements Intervals [place] Rate: 59 P: 15 NE: 195 QRS: 83 QRSD: 84 T: 17 QT: 432 QTc: 431 Interpretive Statements SINUS BRADYCARDIA Compared to ECG 12/27/2024 06:34:14 Sinus rhythm no longer present First degree AV block no longer present Left ventricular hypertrophy no longer present T-wave abnormality no longer present Electronically Signed On 01-18-2025 17:57:26 MASTER SONAR TECHNICIAN by Samir Hendrickson M.D. [email or web address]
[2025-01-18 08:46] LABS: Alanine Aminotransferase 23 U/L (0-33); Albumin Level 3.6 g/dL (3.5-5.2); Alkaline Phosphatase 60 U/L (35-105); Anion Gap 18.4 (5-19); Aspartate Amino Transferase 25 U/L (0-32); Blood Urea Nitrogen 24 mg/dL (8-23); Calcium 8.6 mg/dL (8.5-10.5); Carbon Dioxide 23 mmol/L (22-29); Chloride 99 mmol/L (98-107); Creatinine Clr Calc Pharmacy 60.5424; Globulin 2.5 g/dL (1.3-4.6); Glucose 160 mg/dL (65-115); Osmolality Calculated 289 mOsm/kg (285-295); Potassium 4.4 mmol/L (3.5-5.1); Sodium 136 mmol/L (136-145); Total Bilirubin 0.5 mg/dL (0.15-1.2); Total Protein 6.1 g/dL (6.6-8.7)
[2025-01-18 09:25] LABS: Influenza A NEGATIVE (Negative); Influenza B NEGATIVE (Negative); Respiratory Syncytial Virus Ce NEGATIVE (Negative)
[2025-01-18 09:29] LABS: SARS-CoV-2 PCR Positive (Negative)
[2025-01-18] MEDS: oxyCODONE 5 mg IR Tab/Cap 15 MG PO (09:50)
[2025-01-18] MEDS: hyDRALAzine 25 mg Tablet 50 MG PO (09:51)
[2025-01-18] MEDS: metoprolol tartrate 50 mg Tablet PO (09:51)
[2025-01-18] MEDS: amlodipine 5 mg Tablet PO (09:51)
[2025-01-18] MEDS: rivaroxaban 10 mg Tablet PO (09:51)
[2025-01-18 10:00] LABS: Troponin 5 2HR 25.21 ng/L (0-10)
[2025-01-18 10:05] LABS: Troponin 5 2HR Delta -2.79 ABS# (0-10)
--- OUTSIDE RECORDS SUMMARY | 2025-01-18 12:28 | XMS_ITS | Encounter Summary ---
Author Organization [facility] Address [address] [place] [address] Care Team Providers Care Boat Dock Operator Name Role Phone Ramona Galarza DO Primary Care Provider [phone] Reason for Referral * Radiology Services (Routine) - Open Specialty Diagnoses / Procedures Referred By Tierra t Referred To Contact Diagnoses Screening mammogram, encounter for Procedures MAMMO 3D EMILY SCREEN BILAT W OR WO CAD CHG SCREENING MAMMOGRAPHY BI 2-VIEW BREAST INC CAD CHG SCREENING DIGITAL BREAST TOMOSYNTHESIS BI Ramona Galarza DO [address] [place] [address] Phone: tel: fax: [address] [address] Phone: tel: fax: Referral ID Status Reason Start Date Expiration Date Visits Requested Visits Authorized [id number] Open Ordering Department To Schedule 01/16/2025 02/16/2026 1 1 NT ANALYST Reason for Visit * Reason Comments Chronic Care Management Wheezing For the past couple of days--has fever that began yesterday Encounter Details Date Type Department Care Team (Late st Contact Info) Description 01/16/2025 1:40 PM GEOINT ANALYST Office Visit [facility] [place] [address] [place] [address] Ramona Galarza DO [address] [place] [id number] Type 2 diabetes mellitus without complication, without long-term current use of insulin (CMS/HCC) (Primary Dx); Encounter for colorectal cancer screening; Screening mammogram, encounter for; Fever, unspecified fever cause; Shortness of breath; Pneumonia of both lower lobes due to infectious organism; Lumbago with sciatica, right side; Dyspnea on exertion; Chronic respiratory failure with hypoxia and hypercapnia (CMS/HCC) Social History Tobacco Use Types Packs/Day Years Used Date Smoking Tobacco: Never Smokeless Tobacco: Never Alcohol Use Standard Drinks/Week Comments Never 0 (1 standard drink = 0.6 oz pur e alcohol) Financial Resource Strain Answer Date R ecorded How hard is it for you to pa y for the very basics like food, housing, medical care, and heating? Very hard 02/17/2022 Food Insecurity Answer Date Recorded In the past 12 months, have you worried that your food would run out before you had money to buy more? Often true 2021 In the past 12 months, did y ou run out of food and didn't have money to buy more? Sometimes true 02/17/2022 Transportation Needs Answer Date Record ed In the past 12 months, has l ack of transportation kept you from medical appointments or from getting medications? No 02/17/2022 Lack of Transportation (Non-Medical) Not on file 02/17/2022 Feeling Safe Answer Date Recorded Are you in a relationship wi th someone who hurts you emotionally and/or physically? No 02/08/2024 Food Insecurity Answer Date Recorded Social/Environmental Concerns No concerns Transportation Needs Answer Date Record ed Social/Environmental Concerns No concerns Housing Stability Answer Date Recorded Social/Environmental Concerns No concerns Utility Needs Answer Date Recorded Social/Environmental Concerns No concerns Comments No Sex and Gender Information Value Date Recorded Sex Assigned at Not on file Legal Sex Female 9:45 PM GEOINT ANALYST Gender Identity Not on file Sexual Orientation Not on file documented as of this encounter Last Filed Vital Signs Vital Sign Reading Time Taken Comments Blood Pressure 162/70 01/16/2025 1:58 PM GEOINT ANALYST Pulse 93 01/16/2025 1:41 PM GEOINT ANALYST Temperature 38.3 ??C (101 ??F) 01/16/2025 1:41 PM GEOINT ANALYST Respiratory Rate - - Oxygen Saturation 77% 01/16/2025 1:41 PM GEOINT ANALYST Inhaled Oxygen Concentration - - Weight 103.6 kg (228 lb 6 oz) 01/16/2025 1:41 PM GEOINT ANALYST Height 157.5 cm (5' 2 ) 01/16/2025 1:41 PM GEOINT ANALYST s tated Body Mass Index 41.77 01/16/2025 1:41 PM GEOINT ANALYST documented in this encounter Miscellaneous Notes * Patient Instructions - Sue York, EVENING ANCHOR - 01/16/2025 1:55 PM GEOINT ANALYST What is Diabetic Retinopathy? Diabetic retinopathy is the most common eye disease in patients with diabetes and a leading cause of blindness in [place] adults. It is caused by changes in the blood vessels in the light-sensitive tissue at the back of the eyeball, called the retina. A healthy retina is necessary for good vision.?? In some people with diabetic retinopathy, blood vessels may swell and leak fluid. In other people, abnormal new blood vessels grow on the surface of the retina. ??Diabetic retinopathy usually affects both eyes.?? If you have diabetic retinopathy, at first you may not notice changes to your vision. But over time, diabetic retinopathy can get worse and cause vision loss. Fortunately, vision loss can be prevented if diabetic retinopathy is found and treated early.?? Who is at risk for diabetic retinopathy? All people with diabetes - both type 1 and type 2 - are at risk. That's why everyone with diabetes should get a complete dilated eye exam at least once a year. ??(A dilated exam uses eye drops to open the pupil for a better view of the retina.) What can I do to protect my vision? Get a complete dilated eye exam at least once a year and remember to ask your buyer internship or reinforcing rod layer to send a report of their findings to your Primary Care Provider (or give you a report that you can take to your PCP.)?? Better control of blood sugar levels slows the start and worsening of retinopathy. People with diabetes who keep their blood sugar levels as close to normal as possible also have much less kidney andnerve disease. Better control also reduces the need for sight-saving laser surgery. Other studies have shown that controlling elevated blood pressure and cholesterol can reduce the risk of vision loss.?? Controlling these will help your overall health as well as help protect your vision. Facts about diabetic retinopathy: You can develop diabetic retinopathy and still be able to see fine. However, you are at high risk for vision loss. Your eyelet riveter can tell if you have diabetic retinopathy. Whether or not you have symptoms, early detection and timely treatment can prevent vision loss. People with the most severe type of retinopathy, called proliferative retinopathy. can reduce theirrisk of blindness by 95 percent with timely treatment and appropriate follow-up care. The longer someone has diabetes, the more likely he or she will get diabetic retinopathy. Between 40 to 45 percent of Americans diagnosed with diabetes have some stage of diabetic retinopathy. If you have diabetic retinopathy, your doctor can recommend treatment to help prevent it from getting worse. ?? 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 HOUSE VAT WORKER [address] [place] [address] 06/18/2025 2:20 PM CDT Office Visit [facility] [address] [place] [facility] [place] [address] Ramona Galarza DO [address] [facility] [place] [address] Scheduled Orders Name Type Priority Associated Diagnoses Orde r Schedule OCCULT BLOOD IMMUNOASSAY, COLORECTAL SCREEN Lab Routine Encounter for colorectal cancer screening Expected: 01/16/2025, Expires: 03/13/2025 MAMMO 3D EMILY SCREEN BILAT W OR WO CAD Imaging Routine Screening mammogram, encounter for 1 Occurrences starting 01/16/2025 until 07/19/2026 XR CHEST PA AND LATERAL 2 VW Imaging Routine Dyspnea on exertion Chronic respiratory failure with hypoxia and hypercapnia (CMS/HCC) 1 Occurrences starting 01/16/2025 until 01/16/2026 documented as of this encounter Procedures Procedure Name Priority Date/Time Associated Diagnosis Comments POC COVID-19 ANTIGEN Routine 01/16/2025 2:10 PM GEOINT ANALYST Fever, unspecified fever cause Shortness of breath POC INFLUENZA A AND B ANTIGEN Routine 01/16/2025 2:10 PM GEOINT ANALYST Fever, unspecified fever cause Shortness of breath documented in this encounter Results * POC INFLUENZA A AND B ANTIGEN (01/16/2025 2:10 PM GEOINT ANALYST) INFLUENZA A AG POC Negative/Not Detected Negative/Not Detected [facility] INFLUENZA B AG POC Negative/Not Detected Negative/Not Detected [facility] INTERNAL KIT QC POC Pass Pass [facility] KIT LOT NUMBER POC [id number] [facility] KIT EXP DATE POC 08/15/[address] [facility] READ METHOD POC Visual [facility] Upper Respiratory ANTERIOR NARES SWAB / Unknown 01/16/2025 2:10 PM GEOINT ANALYST us Ramona Galarza DO POINT OF CARE TESTING Final Result [facility]# [id number] [address] [place] [address] * POC COVID-19 ANTIGEN (01/16/2025 2:10 PM GEOINT ANALYST) COVID-19 ANTIGEN POC Presumptively Negative Presumptively Negative [facility] INTERNAL KIT QC POC Pass Pass [facility] KIT LOT NUMBER POC [id number] [facility] KIT EXP DATE POC 09/13/[address] [facility] READ METHOD POC Instrument [facility] Upper Respiratory 01/16/2025 2:10 PM GEOINT ANALYST Ramona Galarza DO POINT OF CARE TESTING Final Result [facility] CLIA# [id number] [address] [place] [address] documented in this encounter Visit Diagnoses Diagnosis Type 2 diabetes mellitus without complication, without long-term current use of insulin (CMS/HCC)- Primary Encounter for colorectal cancer screening Special screening for malignant neoplasms, colon Screening mammogram, encounter for Fever, unspecified fever cause Shortness of breath Pneumonia of both lower lobes due to infectious organism Lumbago with sciatica, right side Dyspnea on exertion Other dyspnea and respiratory abnormality Chronic respiratory failure with hypoxia and hypercapnia (CMS/HCC) documented in this encounter Administered Medications Inactive Administered Medications - up to 3 most recent administrations Medication Order MAR Action Action Date Dose Rate Site cefTRIAXone (ROCEPHIN) vial 1,000 mg 1,000 mg, IM, ONE TIME ONLY, 1 dose, On Josie 01/16/25 at 1445, RoutineIndications:Pneu monia of both lower lobes due to infectious organism Given 01/16/2025 2:57 PM GEOINT ANALYST 1,000 mg Ventrogluteal, Right dexAMETHasone (DECADRON) injection 4 mg 4 mg, IM, ONE TIME ONLY, 1 dose, On Josie 01/16/25 at 1445, RoutineIndications:Pneu monia of both lower lobes due to infectious organism Given 01/16/2025 2:58 PM GEOINT ANALYST 4 mg Ventrogluteal, Left triamcinolone acetonide (KENALOG-40) injectable suspension 40 mg 40 mg, IM, ONE TIME ONLY, 1 dose, On Josie 01/16/25 at 1445, RoutineIndications:Pneu monia of both lower lobes due to infectious organism Given 01/16/2025 2:59 PM GEOINT ANALYST 40 mg Ventrogluteal, Left documented in this encounter Care Teams Boat Dock Operator Relationship Specialty Start Date End Date Ramona Galarza DO [address] [place] [address] PCP - General Family Practice 02/12/24 documented as of this encounter
--- OUTSIDE RECORDS SUMMARY | 2025-01-18 12:28 | XMS_ITS | Clinical Summary ---
Author Organization [facility] Address [address] [place] [address] Care Team Providers Care Law Instructor Name Role Phone Ramona Galarza DO Primary Care Provider [phone] Allergies No known active allergies Medications loratadine/ps eudoephedrine (CLARITIN-D 12 HOUR ORAL) Take 10 mg by mouth daily. Active bumetanide (BUMEX) 1 mg tablet Take 1 mg by mouth 1 time daily as needed. Active diclofenac sodium (VOLTAREN) 1 % gel Apply to affected area 4 times daily. Active glipiZIDE (GLUCOTROL XL) 10 mg Extended Release 24 hour tablet Take 10 mg by mouth daily with breakfast. Active lisinopriL (PRINIVIL) 40 mg tablet Take 40 mg by mouth daily. Active magnesium oxide (MAG-OX) 400 mg (241.3 mg magnesium) tablet Take 400 mg by mouth daily. Active metFORMIN (GLUCOPHAGE) 1,000 mg tablet Take 1,000 mg by mouth 2 times daily with meals. Active simvastatin (ZOCOR) 40 mg tablet Take 40 mg by mouth daily with supper. Active cyanocobalami n (VITAMIN B-12) 1,000 mcg/mL Solution Inject 1 mL by intramuscular injection every 30 days. 01/22/20 Active fenofibrate (LOFIBRA) 160 mg Tablet Take 160 mg by mouth daily. 01/22/20 Active ergocalcifero l (VITAMIN D2) 50,000 unit capsule Take 50,000 Units by mouth every 7 days. 04/25/20 Active gabapentin (NEURONTIN) 800 mg tabletIndicat ions:Chronic midline low back pain with bilateral sciatica Take 800 mg by mouth 3 times daily. 09/21/20 20 Active famotidine (PEPCID) 20 mg tablet Take 1 Tablet (20 mg) by mouth 2 times daily. 180 Tablet 4 05/19/20 23 Active oxygen home delivery Home Oxygen Concentrator no at 2 L/M Rest, 2 L/M Activity, 2 L/M Sleep, Delivery Device: Nasal Cannula Portability: no, 2 L/M Rest, 2 L/M Activity, May provide device best for patient needs(E system,home fill, conserving device) Length of Need: 99 months 1 Each 02/09/20 24 Active metoprolol tartrate (LOPRESSOR) 50 mg tablet Take 1 Tablet (50 mg) by mouth 2 times daily. 60 Tablet 1 02/09/20 24 Active naloxone (NARCAN) 4 mg/spray Jackson, Non-Aerosol EMERGENCY USE ONLY: Administer 1 spray (4 mg) in one nostril one time. May repeat in alternating nostrils every 2-3 min until responsive or EMS arrives. 2 Each 3 02/09/20 24 Active Tresiba FlexTouch U-100 100 unit/mL (3 mL) pen syringe Inject 15 Units by subcutaneous injection daily with breakfast. 02/21/20 24 Active Xarelto 10 mg Tablet Take 10 mg by mouth daily with supper. 03/20/20 24 Active levalbuterol HFA (XOPENEX HFA) 45 mcg/Actuation HFA Aerosol Inhaler INHALE TWO PUFFS INTO LUNGS EVERY 6 HOURS NEEDED FOR SHORTNESS OF BREATH 15 Gram 93 05/29/20 24 Active amLODIPine (NORVASC) 5 mg tablet Take 1 Tablet by mouth daily. 09/14/20 24 Active hydrALAZINE (APRESOLINE) 50 mg tablet Take 1 Tablet by mouth 3 times daily. 12/29/19 25 Active levoFLOXacin (LEVAQUIN) 500 mg tablet Take 1 Tablet (500 mg) by mouth daily for 7 days. 7 Tablet 01/17/20 25 2024 Active oxyCODONE-rufina taminophen (PERCOCET) 7.5-325 mg TabletIndicat ions:Lumbago with sciatica, right side Take 1 Tablet by mouth every 8 hours as needed for Pain, Moderate. Max Daily Amount: 3 Tablets 90 Tablet 01/17/20 25 Active oxyCODONE-rufina taminophen (PERCOCET) 7.5-325 mg TabletIndicat ions:Lumbago with sciatica, right side Take 1 Tablet by mouth every 8 hours as needed for Pain, Moderate. Do not fill until 02/16/2025 Max Daily Amount: 3 Tablets 90 Tablet 01/17/20 25 Active oxyCODONE-rufina taminophen (PERCOCET) 7.5-325 mg TabletIndicat ions:Lumbago with sciatica, right side Take 1 Tablet by mouth every 8 hours as needed for Pain, Moderate. Do not fill until 03/18/2025 Max Daily Amount: 3 Tablets 90 Tablet 01/17/20 25 Active oxyCODONE (ROXICODONE) 15 mg tabletIndicat ions:Lumbago with sciatica, right side Take 1 Tablet (15 mg) by mouth every 4 hours as needed for Pain, Moderate. Max Daily Amount: 90 mg 180 Tablet 01/17/20 25 Active oxyCODONE (ROXICODONE) 15 mg tabletIndicat ions:Lumbago with sciatica, right side Take 1 Tablet (15 mg) by mouth every 4 hours as needed for Pain, Moderate. Do not fill until 02/16/2025 Max Daily Amount: 90 mg 180 Tablet 01/17/20 25 Active oxyCODONE (ROXICODONE) 15 mg tabletIndicat ions:Lumbago with sciatica, right side Take 1 Tablet (15 mg) by mouth every 4 hours as needed for Pain, Moderate. Do not fill until 03/18/2025 Max Daily Amount: 90 mg 180 Tablet 01/17/20 25 Active ondansetron (ZOFRAN ODT) 8 mg Tablet, Rapid Dissolve DISSOLVE ONE TABLET ON TOP OF TONGUE THEN SWALLOW WITH SALIVA EVERY 6 HOURS NEEDED 60 Tablet 6 01/18/20 25 Active ondansetron (ZOFRAN ODT) 8 mg Tablet, Rapid Dissolve Dissolve 1 tablet on top of tongue then swallow with saliva every every 6 hours prn 60 Tablet 6 05/22/20 24 2024 Discontinued oxyCODONE-rufina taminophen (PERCOCET) 7.5-325 mg TabletIndicat ions:Lumbago with sciatica, right side Take 1 Tablet by mouth every 8 hours as needed for Pain, Moderate. Do not fill until 12/23/2024 Max Daily Amount: 3 Tablets 90 Tablet 12/23/19 25 2024 Discontinued(R eorder) oxyCODONE (ROXICODONE) 15 mg tabletIndicat ions:Lumbago with sciatica, right side Take 1 Tablet (15 mg) by mouth every 4 hours as needed for Pain, Moderate. Do not fill until 12/23/2024 Max Daily Amount: 90 mg 180 Tablet 12/23/19 25 2024 Discontinued(R eorder) Hospital, Clinic, or Other Facility Administered Medication Ordered Dose Route Frequency Start Date End Date Status dexAMETHasone (DECADRON) injection 4 mgIndications:Pneumonia of both lower lobes due to infectious organism 4 mg IM ONE TIME ONLY 01/16/2025 01/16/2025 Ended triamcinolone acetonide (KENALOG-40) injectable suspension 40 mgIndications:Pneumonia of both lower lobes due to infectious organism 40 mg IM ONE TIME ONLY 01/16/2025 01/16/2025 Ended cefTRIAXone (ROCEPHIN) vial 1,000 mgIndications:Pneumonia of both lower lobes due to infectious organism 1000 mg IM ONE TIME ONLY 01/16/2025 01/16/2025 Ended Active Problems Problem Noted Date Diagnosed Date Hypoxia 02/09/2024 Chronic respiratory failure with hypoxia and hyp ercapnia 02/09/2024 Traumatic subconjunctival hemorrhage of right ey e 02/08/2024 SAH (subarachnoid hemorrhage) 02/07/2024 Chronic anticoagulation 02/07/2024 Hypertensive urgency 02/07/2024 Periorbital hematoma 02/07/2024 Essential hypertension 10/06/2020 Mixed hyperlipidemia 10/06/2020 Chronic midline low back pain with bilateral sci atica 10/06/2020 Benign hypertension 10/06/2020 Type 2 diabetes mellitus wit hout complication, without long-term current use of insulin 10/06/2020 Bilateral lower extremity edema 10/06/2020 Severe obesity (BMI 35.0-39.9) with comorbidity 10/06/2020 Encounters Date Type Department Care Team Description 01/17/2025 Refill [facility] [address] [facility] [place] [place] [address] Ramona Galarza DO 01/16/2025 1:40 PM 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 Office Visit [facility] [address] [place] [address] Ramona Galarza, DO Type 2 diabetes mellitus without complication, without long-term current use of insulin ([facility]) (Primary Dx); Encounter for colorectal cancer screening; Screening mammogram, encounter for; Fever, unspecified fever cause; Shortness of breath; Pneumonia of both lower lobes due to infectious organism; Lumbago with sciatica, right side; Dyspnea on exertion; Chronic respiratory failure with hypoxia and hypercapnia ([facility]) 01/01/2025 Orders Only [facility] [address] [place] [address] Ramona Galarza, Type 2 diabetes mellitus without complication, without long-term current use of insulin ([facility]) 12/17/2024 Refill [facility] [address] [place] [address] Ramona Galarza, DO Lumbago with sciatica, right side 12/05/2024 Orders Only [facility] [address] [place] [address] Ramona Galarza, Type 2 diabetes mellitus without complication, without long-term current use of insulin ([facility]) 12/04/2024 External Device Data STL ABSTRACTION Provider, Abstract 12/03/2024 External Device Data STL ABSTRACTION Provider, Abstract 11/21/2024 Refill [facility] [address] [place] [address] Ramona Galarza, DO Lumbago with sciatica, right side 11/21/2024 Telephone [facility] [address] [place] [address] Ramona Galarza, Provider Call 11/20/2024 Refill [facility] [address] [place] [phone] Ramona Galarza, DO Lumbago with sciatica, right side 11/05/2024 Telephone [facility] [address] [facility] [place] [place] [phone] Ramona Galarza, DO Primary Care Outreach (BP); Patient Communication 10/31/2024 Orders Only [facility] [address] [facility] [place] [phone] Ramona Galarza, DO Type 2 diabetes mellitus without complication, without long-term current use of insulin 10/21/2024 Abstract [facility] [address] [place] [address] Provider, Abstract 10/21/2024 Refill [facility] [address] [place] [phone] Ramona Galarza, DO Lumbago with sciatica, right side from Last 3 Months Immunizations Immunization Administration Dates Next Due INFLUENZA VACCINE HIGH DOSE QUADRIVALENT 65 YR UP PF IM 08/21/2023,08/19/2022 INFLUENZA VACCINE HIGH DOSE TRIVALENT SPLIT VIRUS, (65 YR UP), 0.5ML (PF), IM 09/19/2024 Social History Tobacco Use Types Packs/Day Years Used Date Smoking Tobacco: Never Smokeless Tobacco: Never Tobacco Cessation:Counseling Given: No Alcohol Use Standard Drinks/Week Comments Never 0 [...] on file Legal Sex Female 9:45 PM 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 Gender Identity Not on file Sexual Orientation Not on file Last Filed Vital Signs Vital Sign Reading Time Taken Comments Blood Pressure 162/70 01/16/2025 1:58 PM 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 Pulse 93 01/16/2025 1:41 PM 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 Temperature 38.3 ??C (101 ??F) 01/16/2025 1:41 PM 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 Respiratory Rate 17 02/10/2024 9:00 AM CDT Oxygen Saturation 77% 01/16/2025 1:41 PM 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 Inhaled Oxygen Concentration - - Weight 103.6 kg (228 lb 6 oz) 01/16/2025 1:41 PM 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 Height 157.5 cm (5' 2 ) 01/16/2025 1:41 PM 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 s tated Body Mass Index 41.77 01/16/2025 1:41 PM 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 Plan of Treatment Upcoming Encounters Date Type Department Care Team (Late st Contact Info) Description 03/18/2025 10:00 AM CDT Office Visit [facility] [address] 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 [address] [place] [facility] [place] [phone] 06/18/2025 2:20 PM CDT Office Visit [facility] [address] [place] [phone] Ramona Galarza, DO [address] [facility] [place] [phone] Health Maintenance Due Date Last Done Comments FIT/ DNA Q 3 YEARS (AUTO ORDER) 1969 FIT/FOBT Q 1 YEAR (AUTO ORDER) 1969 FLEX SIG/CT COLONOGRAPHY Q 5 YEARS (AUTO ORDER) 1969 DTAP/TDAP/TD VACCINES (1 - Tdap) 1970 PNEUMOCOCCAL VACCINE 50+ YEA RS (1 of 2 - PCV) 1970 BREAST CANCER SCREENING 1991 DIABETES STATIN MANAGEMENT ( AUTO ORDER) 1991 COLORECTAL CANCER SCREENING (AUTO ORDER) 1996 COLORECTAL SCREENING 1996 Colorectal Cancer Screening (AUTO ORDER) 1996 Colorectal Cancer Screening 1996 FIT-DNA Q 3 years 1996 FIT/FOBT Q 1 year 1996 Flex Sig/CT Colonography Q 5 years 1996 ZOSTER VACCINE (1 of 2) 2001 RSV VACCINE (60+ or ) (1 - Risk 60-74 years 1-dose series) 2011 LDL CHOLESTEROL ANNUAL 08/24/2022 , 01/27/2021, 09/01/2020, Additional history exists DIABETES ANNUAL RETINAL EXAM 12/17/202202/2022, 12/14/2020, 12/14/2020, Additional history exists DIABETES: A1C (Auto Order) 05/08/202402/05, 10/17/2023, 03/30/2023, Additional history exists COVID-19 Vaccine ( - 2023-2 5 season) 2024 07/15/2021, 06/17/2021 DIABETES HBA1C Q 6 MONTHS 08/08/20242023, 10/17/2023, 03/30/2023, Additional history exists KHE eGFR (Auto Order) 11/13/2024 02/09/2024, 024 KHE uACR (Auto Order) 11/13/2024 09/19/2024 Medicare Advantage ([place]) Preventative Visit/Annual Wellness Visit 11/13/2024 09/19/2024, 08/21/2023, 02/17/2022 DIABETES ANNUAL FOOT EXAM 09/19/20252023, 05/22/2024, 02/19/2024, Additional history exists DIABETES MICROALBUMIN ANNUAL SCREEN 09/19/2025 09/19/2024, 01/27/2021 OSTEOPOROSIS SCREENING Completed 02/20/2017 INFLUENZA VACCINE Completed 09/19/2024, , 08/19/2022, Additional history exists Procedures Procedure Name Priority Date/Time Associated Diagnosis Comments POC INFLUENZA A AND B ANTIGEN Routine 01/16/2025 2:10 PM 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 Fever, unspecified fever cause Shortness of breath POC COVID-19 ANTIGEN Routine 01/16/2025 2:10 PM 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 Fever, unspecified fever cause Shortness of breath MICROALBUMIN/CREATI NINE RATIO, RANDOM UR Routine 09/19/2024 2:03 PM 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 Type 2 diabetes mellitus without complication, without long-term current use of insulin ([facility]) BASIC METABOLIC PANEL Stat 02/09/2024 10:05 AM CDT HEMOGLOBIN A1C Routine 02/06/2024 LIPID PANEL Routine 08/24/2021 DIABETES EYE EXAM Routine 12/14/2020 from Last 3 Months or Most Recently Relevant to Health Maintenance Results * POC COVID-19 ANTIGEN (01/16/2025 2:10 PM 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) Pathologist [facility] COVID-19 ANTIGEN POC Presumptively Negative Presumptively Negative [facility] INTERNAL KIT QC POC Pass Pass [facility] KIT LOT NUMBER POC [id number] [facility] KIT EXP DATE POC 09/13/2025 [facility] READ METHOD POC Instrument [facility] Upper Respiratory 01/16/2025 2:10 PM 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 Ramona Galarza DO POINT OF CARE TESTING Final Result Performing Organization Address [facility] Co de Phone Number [facility] CLIA# [id number] [address] [place] [address] * POC INFLUENZA A AND B ANTIGEN (01/16/2025 2:10 PM 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) [facility] INFLUENZA A AG POC Negative/Not Detected Negative/Not Detected [facility] INFLUENZA B AG POC Negative/Not Detected Negative/Not Detected [facility] INTERNAL KIT QC POC Pass Pass [facility] KIT LOT NUMBER POC [id number] [facility] KIT EXP DATE POC 08/15/2026 [facility] READ METHOD POC Visual [facility] Upper Respiratory ANTERIOR NARES SWAB / Unknown 01/16/2025 2:10 PM 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 Ramona Galarza DO POINT OF CARE TESTING Final Result Performing Organization Address [facility] Co de Phone Number [facility] CLIA# [id number] [address] [place] [address] * (ABNORMAL) MICROALBUMIN/CREATININE RATIO, RANDOM UR (09/19/2024 2:03 PM 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) [facility] Creatinine, Urine 100 20 - 275 mg/dL [facility] MICROALBUMIN, URINE 7.0 See Note: mg/dL [facility] Comment: Reference Range: Reference Range Not established MICROALBUMIN/CREAT RATIO, UR 70(H) <30 mg/g creat [facility] Comment: The ADA defines abnormalities in albumin excretion as follows: Albuminuria Category ?Result (mg/g creatinine) Normal to Mildly increased ?? <30 Moderately increased ? 30-299 Severely increased ? > OR = 300 The ADA recommends that at least two of three specimens collected within a 3-6 month period be abnormal before considering a patient to be within a diagnostic category. FASTING:UNKNOWN FASTING: UNKNOWN Test Performed at: [facility] [address] [place], [place] ??[address] Cody Faith MD Urine URINE SPECIMEN OBTAINED BY CLEAN CATCH PROCEDURE / Unknown 09/19/2024 2:03 PM 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 09/20/2024 2:40 AM 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 us Ramona Galarza DO URINE ORDERABLES Final Resu lt [facility] [phone] [facility] [address] [place] [address] * (ABNORMAL) BASIC METABOLIC PANEL (02/09/2024 10:05 AM CDT) SODIUM 137 136 - 145 mmol/L 02/09/2024 10:52 AM [facility] POTASSIUM 4.6 3.5 - 5.1 mmol/L 02/09/2024 10:52 AM [facility] CHLORIDE 100 98 - 107 mmol/L 02/09/2024 10:52 AM [facility] CO2 28 22 - 29 mmol/L 02/09/2024 10:52 AM [facility] CALCIUM 9.2 8.8 - 10.2 mg/dL 02/09/2024 10:52 AM [facility] BUN 42(H) 8 - 23 mg/dL 02/09/2024 10:52 AM [facility] CREATININE 1.43(H) 0.51 - 0.95 mg/dL 02/09/2024 10:52 AM [facility] Comment:The GFR result is no t clinically significant on patients <18 or >70 years of age. GLUCOSE 198(H) 74 - 99 mg/dL 02/09/2024 10:52 AM [facility] GFR 39 mL/min/1. 73 sq meter 02/09/2024 10:52 AM [facility] Comment:eGFR calculated with 2020 CKD-EPI equation. Vegetarian diet, extremely high or low muscle mass, and may affect results. Cystatin C with Glomerular Filtration Rate is a suitable alternative for these patients. ANION GAP 9 9 - 20 mmol/L 02/09/2024 10:52 AM CDT [facility] Blood Venipuncture / Unknown 02/09/2024 10:05 AM CDT 02/09/2024 10:16 AM CDT us Amado Coker MD CHEMISTRY ORDERABLES Final Resu lt [facility] CLIA # [id number] [address] [place] [address] * HEMOGLOBIN A1C (02/06/2024) ABSTRACTED HGB A1C 8.7 % [facility] Blood 02/06/2024 us Abstract Provider CHEMISTRY ORDERABLES Final Res ult Performing Organization Address [facility] Co de Phone Number [facility] * LIPID PANEL (08/24/2021) ABSTRACTED CHOLESTEROL 185 ABSTRACTED TRIGLYCERIDE 226 ABSTRACTED HDL 37 ABSTRACTED LDL CALCULATED 103 Blood 08/24/2021 us Abstract Provider CHEMISTRY ORDERABLES Final Res ult * DIABETES EYE EXAM (12/14/2020) us Abstract Provider HEALTH MAINTENANCE Final Resul t from Last 3 Months or Most Recently Relevant to Health Maintenance Insurance MEDICAID [facility] DUAL COMPLETE CHOICE PPO DSNP [facility] [id number] Advance Directives For more information, please contact: [phone] * Full Code (Latest Code Status on File) Date Activated Date Inactivated Comments 02/07/2024 11:36 PM 02/10/2024 1:11 PM Care Teams Law Instructor Relationship Specialty Start Date End Date Ramona Galarza DO [address] [place] [facility] [place] [address] PCP - General Family Practice 02/12/24
--- OUTSIDE RECORDS SUMMARY | 2025-01-18 12:28 | XMS_ITS | Encounter Summary ---
Author Organization [facility] Address 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 Gender Identity Not on file Sexual Orientation Not on file documented as of this encounter Plan of Treatment Upcoming Encounters Date Type Department Care Team (Late st Contact Info) Description 03/18/2025 10:00 AM CDT Office Visit [facility] [address] [place] [phone] 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, 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 [address] [place] [address] 06/18/2025 2:20 PM CDT Office Visit [facility] [address] [place] [address] Ramona Galarza DO [address] [place] [phone] Scheduled Orders Name Type Priority Associated Diagnoses Orde r Schedule HEMOGLOBIN A1C Lab Routine Type 2 diabetes mellitus without complication, without long-term current use of insulin (CMS/HCC) Expected: 01/11/2025 (Approximate), Expires: 01/21/2025 documented as of this encounter Visit Diagnoses Diagnosis Type 2 diabetes mellitus without complication, without long-term current use of insulin (CMS/HCC) documented in this encounter Care Teams Fine Arts Chair Relationship Specialty Start Date End Date Ramona Galarza DO [address] [place] [facility] [place] [facility] [place] [id number] PCP - General Family Practice 4/1/24 documented as of this encounter
--- OUTSIDE RECORDS SUMMARY | 2025-01-18 12:28 | XMS_ITS | Encounter Summary ---
Author Organization [facility] Address 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 Gender Identity Not on file Sexual Orientation Not on file documented as of this encounter Miscellaneous Notes * Telephone Encounter - Julia Jaramillo LPN - 01/17/2025 1:02 PM CST Medication Refill Request Last Fill Date:05/22/24 #[id number] with 6 RF LACEY 01/16/25 Recent and Future Visits: Recent Visits Date Type Provider Dept 01/16/25 Office Visit Ramona Galarza, DO [facility] 09/19/24 Office Visit Ramona Galarza, DO [facility] 05/22/24 Office Visit Ramona Galarza, DO [facility] [place] 02/19/24 Office Visit Ramona Galarza, DO [facility] [place] 02/15/24 Office Visit [facility] 11/20/23 Office Visit Ramona Galarza, DO [facility] [place] 08/21/23 Office Visit Ramona Galarza, DO [facility] Showing recent visits within past 540 days with a meds authorizing provider and meeting all other requirements Future Appointments Date Type Provider Dept 03/18/25 Appointment Sandrine Braga [facility] 06/18/25 Appointment Ramona Galarza DO [facility] Showing future appointments within next 365 days with a meds authorizing provider and meeting all other requirements Last Labs: Lab Results Component Value Date/Time CREAT 1.43 (H) 02/09/2024 10:05 AM BUN 42 (H) 02/09/2024 10:05 AM NA 137 02/09/2024 10:05 AM K 4.6 02/09/2024 10:05 AM KPOC 4.6 02/09/2024 02:53 PM CL 100 02/09/2024 10:05 AM CO2 28 02/09/2024 10:05 AM GFR 39 02/09/2024 10:05 AM Elena Salinas - 1950 Check and review of the [place] PDMP performed on 01/17/2025 at 1:02 PM was ETING INTELLIGENCE MANAGER documented in this encounter Plan of Treatment Upcoming Encounters Date Type Department Care Team (Late st Contact Info) Description 03/18/2025 10:00 AM CDT Office Visit [facility] [address] [place] [address] BragaFebruary, BANKRUPTCY JUDGE [address] [place] [address] 06/18/2025 2:20 PM CDT Office Visit [facility] [address] [place] [phone] Ramona Galarza DO [address] [place] [address] documented as of this encounter Visit Diagnoses Not on filedocumented in this encounter Care Teams Manager Employee Relations Relationship Specialty Start Date End Date Ramona Galarza DO [address] [place] [phone] PCP - General Family Practice 02/12/24 documented as of this encounter
--- OUTSIDE RECORDS SUMMARY | 2025-01-18 12:28 | XMS_ITS | Clinical Summary ---
Author Organization [facility] Address [address] [place] [address] Care Team Providers Care Director Cpg Name Role Phone Unavailable Primary Care Provider Unavailabl e Allergies No known active allergies Medications diclofenac sodium (Voltaren) 1 % gel Apply to affected area 4 times daily. Active gabapentin (NEURONTIN) 800 mg tabletIndications: Chronic midline low back pain with bilateral sciatica Take 800 mg by mouth 3 times daily. Active celecoxib (CeleBREX) 200 mg capsuleIndications :Chronic midline low back pain with bilateral sciatica Take 200 mg by mouth 2 times daily. Active ERGOCALCIFEROL, VITAMIN D2, ORAL Take by mouth every 7 days. Active loratadine/pseudoe phedrine (CLARITIN-D 24 HOUR ORAL) Take by mouth. Acti ve omega-3 fatty acids-fish oil 300-1,000 mg Capsule Take by mouth daily. Active glipiZIDE (GLUCOTROL XL) 10 mg Extended Release 24 hour tabletIndications: Type 2 diabetes mellitus without complication, without long-term current use of insulin (CMS/HCC) Take 10 mg by mouth daily with breakfast. Active metFORMIN (GLUCOPHAGE) 1,000 mg tabletIndications: Type 2 diabetes mellitus without complication, without long-term current use of insulin (CMS/HCC) Take 1,000 mg by mouth 2 times daily with meals. Active amLODIPine (NORVASC) 10 mg tabletIndications: Benign hypertension Take 10 mg by mouth daily. Takes only if bp elevated. Active metoprolol succinate (TOPROL XL) 200 mg Extended Release 24 hour tabletIndications: Benign hypertension Take 200 mg by mouth daily. Active simvastatin (ZOCOR) 40 mg tabletIndications: Mixed hyperlipidemia Take 40 mg by mouth daily with supper. Active bumetanide (BUMEX) 1 mg tablet Take 1 mg by mouth 1 time daily as needed for Other (See Comment). Active lisinopriL (PRINIVIL) 40 mg tablet Take 40 mg by mouth daily. Active magnesium oxide (MAG-OX) 400 mg (241.3 mg magnesium) tablet Take 400 mg by mouth daily. Active mometasone (NASONEX) 50 mcg/actuation [place], Non-Aerosol daily. A ctive levalbuterol HFA (XOPENEX HFA) 45 mcg/Actuation HFA Aerosol Inhaler Take 2 Puffs by inhalation every 6 hours as needed for Shortness of Breath. 15 Gram 3 1 Active methocarbamoL (ROBAXIN) 500 mg tablet Take 1 Tablet (500 mg) by mouth 3 times daily. 90 Tablet 6 1 Active tiZANidine (ZANAFLEX) 4 mg Tablet Take 1 Tablet (4 mg) by mouth 3 times daily as needed for Spasm. 90 Tablet 2 1 Active oxyCODONE (ROXICODONE) 10 mg tabletIndications: Chronic midline low back pain with bilateral sciatica Take 1 Tablet (10 mg) by mouth every 4 hours as needed for Pain, Moderate. Max Daily Amount: 60 mg 180 Tablet 1 Active oxyCODONE (ROXICODONE) 10 mg tabletIndications: Chronic midline low back pain with bilateral sciatica Take 1 Tablet (10 mg) by mouth every 4 hours as needed for Pain, Moderate. Do not fill until 05/20/2021 Max Daily Amount: 60 mg 180 Tablet 1 Active oxyCODONE (ROXICODONE) 10 mg tabletIndications: Chronic midline low back pain with bilateral sciatica Take 1 Tablet (10 mg) by mouth every 4 hours as needed for Pain, Moderate. Do not fill until 06/20/2021 Max Daily Amount: 60 mg 180 Tablet 1 Active oxyCODONE (ROXICODONE) 15 mg tabletIndications: Chronic midline low back pain with bilateral sciatica Take 1 Tablet (15 mg) by mouth every 4 hours as needed for Pain, Moderate. Max Daily Amount: 90 mg 180 Tablet 1 Active oxyCODONE (ROXICODONE) 15 mg tabletIndications: Chronic midline low back pain with bilateral sciatica Take 1 Tablet (15 mg) by mouth every 4 hours as needed for Pain, Moderate. Do not fill until 2021 Max Daily Amount: 90 mg 180 Tablet 1 Active oxyCODONE (ROXICODONE) 15 mg tabletIndications: Chronic midline low back pain with bilateral sciatica Take 1 Tablet (15 mg) by mouth every 4 hours as needed for Pain, Moderate. Do not fill until 06/19/2021 Max Daily Amount: 90 mg 180 Tablet 1 Active Active Problems Problem Noted Date Diagnosed Date Chronic midline low back pain with bilateral sci atica 10/06/2020 Essential hypertension 10/06/2020 Type 2 diabetes mellitus wit hout complication, without long-term current use of insulin 10/06/2020 Benign hypertension 10/06/2020 Mixed hyperlipidemia 10/06/2020 Bilateral lower extremity edema 10/06/2020 Severe obesity (BMI 35.0-39.9) with comorbidity 10/06/2020 Social History Tobacco Use Types Packs/Day Years Used Date Smoking Tobacco: Never Smokeless Tobacco: Never Alcohol Use Standard Drinks/Week Comments Never 0 (1 standard drink = 0.6 oz pur e alcohol) Comments Unknown Sex and Gender Information Value Date Recorded Sex Assigned at Not on file 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 Gender Identity Not on file Sexual Orientation Not on file Last Filed Vital Signs Vital Sign Reading Time Taken Comments Blood Pressure 130/80 04/19/2021 9:16 AM CDT Pulse 62 04/19/2021 9:16 AM CDT Temperature 37.2 ??C (99 ??F) 04/19/2021 9:16 AM CDT Respiratory Rate 18 04/19/2021 9:16 AM CDT Oxygen Saturation 92% 04/19/2021 9:16 AM CDT Inhaled Oxygen Concentration - - Weight 100.7 kg (222 lb) 04/19/2021 9:16 AM CDT Height 160 cm (5' 3 ) 04/19/2021 9:16 AM CDT Body Mass Index 39.33 04/19/2021 9:16 AM CDT Plan of Treatment Health Maintenance Due Date Last Done Comments DIABETES ANNUAL FOOT EXAM 1969 DIABETES ANNUAL RETINAL EXAM 1969 DIABETES HBA1C Q 6 MONTHS 1969 DIABETES MICROALBUMIN ANNUAL SCREEN 1969 LDL CHOLESTEROL ANNUAL 1969 DTAP/TDAP/TD VACCINES (1 - Tdap) 1970 PNEUMOCOCCAL VACCINE 50+ YEA RS (1 of 2 - PCV) 1970 BREAST CANCER SCREENING 1991 COLORECTAL SCREENING 1996 Colorectal Cancer Screening 1996 FIT-DNA Q 3 years 1996 FIT/FOBT Q 1 year 1996 Flex Sig/CT Colonography Q 5 years 1996 ZOSTER VACCINE (1 of 2) 2001 RSV VACCINE (60+ or ) (1 - Risk 60-74 years 1-dose series) 2011 OSTEOPOROSIS SCREENING 2016 INFLUENZA VACCINE (#1) 2024 1, 10/15/2020, 09/21/2020 Insurance MEDICARE PART A [place] B [place]
--- NOTE | 2025-01-18 13:22 | ECG_ITS ---
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 Measurements Intervals [place] Rate: 64 P: 0 ND: 0 QRS: 78 QRSD: 91 T: 10 QT: 429 QTc: 445 Interpretive Statements ECTOPIC ATRIAL RHYTHM Compared to ECG 01/18/2025 09:29:27 Supraventricular rhythm now present Sinus bradycardia no longer present Electronically Signed On 01-18-2025 19:26:41 FLAT BED OPERATOR by Samir Hendrickson M.D. [email or web address]
[2025-01-18 14:05] LABS: Troponin 5 6HR 25.62 ng/L (0-10)
[2025-01-18 14:07] LABS: Troponin 5 6HR Delta -2.38 ng/L (0-12)
[2025-01-18] MEDS: dexamethasone 4 mg/mL INJ 6 MG IVP (15:43)
[2025-01-18] MEDS: hyDRALAzine 50 mg Tablet PO ×2 (15:43→21:02)
[2025-01-18] MEDS: cefTRIAXone 1,000 mg SDV 1000 MG IVP (15:43)
[2025-01-18] MEDS: ipratropium-albuterol 3 mL Neb INHALATION ×2 (16:05→20:35)
[2025-01-18] MEDS: remdesivir 200 MG in sodium chloride 0.9% (100 ml) 100 ML 100 MG IV (16:35)
[2025-01-18 17:11] LABS: Glucose Point of Care 148 mg/dL (70-110)
--- NOTE | 2025-01-18 17:27 | PM.HP ---
Providers/Chief Complaint Admitting Physician: Cara Soto MD Primary Care Provider: DOMINICK Vizcarra Chief Complaint: chest pain; sob History of Present Illness Elena Salinas is a 74 year old female with a past medical history significant for B12 deficiency, atrial fibrillation, type 2 diabetes mellitus, hypertension, and hypoxia, recently admitted here between December 27 to December 28 for acute on chronic hypoxic respiratory failure with also evidence of hypercapnia at that time. She does not have any formal diagnosis of COPD. Patient did require BiPAP on previous admission.She was recommended to have a sleep study as an outpatient, however this has not been performed. Patient did qualify for 2 L/min supplemental O2 at the time of discharge. She presented to the emergency room today with chief complaints of chest pain and shortness of breath. She was recently diagnosed with pneumonia by her primary care physician and received a prescription for levofloxacin. She states that her symptoms have continued to progress and she has been having increasing orthopnea. She is using herself 5 pillows to prop up at night. She is chronically on Xarelto due to previous A fib . On arrival to the emergency room she tested positive for COVID-19. She is requiring more oxygen than usual and her blood pressure was elevated at 176/73. Additionally her new complaints of chest pain. Troponin series is currently unremarkable and there are no acute ST-T wave changes noted on EKG Review of Systems General: Reports: 10 or more systems reviewed and unremarkable except in HPI and below Const: Denies: fever(s), chills or body aches Eyes: Denies: change in vision, blurry vision or photophobia ENMT: Reports: hoarseness; Denies: throat pain, enlarged tonsils, odynophagia or nasal congestion Card: Denies: chest pain, palpitations, irregular heart rhythm, edema, swelling of feet/ankles, lightheadedness, pre-syncope, dyspnea on exertion or orthopnea Resp: Denies: dyspnea, productive cough, non-productive cough, wheezing, stridor, pain on inspiration, change in phlegm color, hemoptysis or chest congestion GI: Denies: abdominal pain, nausea, vomiting, hematemesis, coffee ground emesis, dysphagia, heartburn, diarrhea, constipation, GI cramping, change in stool character, hematochezia or melena : Denies: flank pain, difficulty voiding, dysuria, urinary frequency, urinary urgency, urinary hesitancy or hematuria Musc: Denies: neck pain, back pain, extremity pain, joint swelling, joint warmth or deformity Neuro: Denies: headache(s), numbness in extremities, weakness in extremities, sensory changes, difficulty walking, frequent falls, dizziness, vertigo, behavioral changes, Slurred speech present or seizure-like activity Psych: Denies: anxiety, depression, suicidal ideation or homicidal ideation Endo: Denies: polyuria, polydipsia, tired all the time, cold intolerance or hot flashes Asa/Lymph: Denies: easy bruising or easy bleeding Medications/Allergies Home Medications ?Medication ?Instructions ?Recorded ?Confirmed ?Last Taken ?Type levalbuterol tartrate 45 2 puff inhalation Q6H PRN 07/01/22 01/18/25 Unknown History mcg/actuation aerosol inhaler Shortness Of Breath oxycodone 15 mg tablet 15 mg PO Q4H PRN Pain 07/01/22 01/18/25 01/17/25 History glucometer testing kit #1 ea 09/18/22 01/18/25 Unknown Rx glucometer testing kit #1 ea 09/18/22 01/18/25 Unknown Rx insulin degludec 100 unit/mL (3 20 unit (0.2 mL) SUBCUT QAM #15 mL 05/27/24 01/18/25 01/17/25 Rx mL) subcutaneous pen (Tresiba FlexTouch U-100 insulin) syringe with needle 3 mL 25 gauge #1 ea 05/31/24 01/18/25 Unknown Rx x 1 (BD Luer-Beth Syringe) ondansetron 8 mg disintegrating 8 mg PO Q6H PRN Nausea And Vomiting 12/27/24 01/18/25 Unknown History tablet oxycodone-acetaminophen 7.5 mg-325 1 tab PO Q8H PRN Pain 12/27/24 01/18/25 01/17/25 History mg tablet hydralazine 50 mg tablet 50 mg PO TID #90 tabs 12/28/24 01/18/25 01/17/25 Rx amlodipine 5 mg tablet 5 mg PO DAILY 01/18/25 01/18/25 01/17/25 History cyanocobalamin (vitamin B-12) 1,000 mcg SUBCUT .Q30D 01/18/25 01/18/25 Unknown History 1,000 mcg/mL injection solution ergocalciferol (vitamin D2) 1,250 50,000 unit PO Q7D 01/18/25 01/18/25 01/17/25 History mcg (50,000 unit) capsule famotidine 20 mg tablet 20 mg PO BID 01/18/25 01/18/25 01/17/25 History fenofibrate 160 mg tablet 160 mg PO DAILY 01/18/25 01/18/25 Unknown History gabapentin 800 mg tablet 800 mg PO TID 01/18/25 01/18/25 01/17/25 History glipizide 10 mg tablet, extended 10 mg PO DAILY 01/18/25 01/18/25 01/17/25 History release 24 hr levofloxacin 500 mg tablet 500 mg PO DAILY 01/18/25 01/18/25 01/17/25 History magnesium oxide 400 mg (241.3 mg 400 mg PO DAILY 01/18/25 01/18/25 01/17/25 History magnesium) tablet metformin 1,000 mg tablet 1,000 mg PO BID 01/18/25 01/18/25 01/17/25 History metoprolol tartrate 50 mg tablet 50 mg PO BID 01/18/25 01/18/25 01/17/25 History rivaroxaban 10 mg tablet (Xarelto) 10 mg PO DAILY 01/18/25 01/18/25 01/17/25 History simvastatin 40 mg tablet 40 mg PO DAILY 01/18/25 01/18/25 01/17/25 History Allergies Allergy/AdvReac Type Severity Reaction Status Date / Time No Known Allergies Allergy Verified 01/03/25 09:53 PFSH Acute PFSH: Medical History NOEMI (acute kidney injury) Type 2 diabetes mellitus B12 deficiency Vitamin D deficiency GERD (gastroesophageal reflux disease) Atrial fibrillation Cholecystitis Abnormal transaminases Cholelithiasis Acute encephalopathy Acute cystitis Wound of right foot Type 2 diabetes mellitus without complications Obesity, unspecified Chronic osteoarthritis Bunion of right foot Encounter for counseling for care management of patient with chronic conditions and complex health needs using nurse-based model Seasonal allergies Gastro-esophageal reflux disease without esophagitis Neuropathy Dyslipidemia Chronic back pain Essential (primary) hypertension Surgical History Hx of knee surgery (~10/2000) left Family History Mother Cancer colon Father Cancer pancreatic Family/Other CAD (coronary artery disease) Social History Smoking and tobacco/nicotine status: never used tobacco/nicotine Second hand smoke exposure: No Alcohol intake: never Substance/Drug Use: never Lives independently: Yes Household members: significant other Marital status: Life Partner Current occupational status: retired Current gender identity: Female Vitals/I&O/Wt Last Vital Signs Temp 98.5 F 01/18/25 15:42 Pulse 64 01/18/25 16:11 Resp 22 H 01/18/25 16:11 BP 176/73 01/18/25 15:42 Pulse Ox 94 01/18/25 16:11 O2 Del Method Nasal Cannula 01/18/25 16:11 O2 Flow Rate 2.5 01/18/25 16:11 Weight last 48 hrs Weight 105.143 kg Weight 97.069 kg Physical Exam Narrative: General: No acute distress, AO x3 HEENT: PERRLA, pupils bilaterally equal and reactive, pallors not present Chest: scattered wheezing B/L CVS: S1-S2 regular, no murmurs, no tachycardia, no gallops, no rubs Abdomen: Soft, nontender, no organomegaly, bowel sounds present Neuro: No focal deficits, no facial deformity, AO x3, power 5/5 in all limbs Data 01/18/25 07:44 01/18/25 07:44 Micro: Microbiology 01/18/25 08:11 Blood Culture - Preliminary Blood SPECIMEN COLLECTED 01/18/25 08:09 Blood Culture - Preliminary Blood SPECIMEN COLLECTED A&P Assessment and plan (1) COVID-19: Remdisivir 200mg iv x 1 followed by 100mg iv daily dexamethasone 6mg IVP daily duoneb q6h, budesonide q12h empiric CTX trend inflammatory markers including CRP . PE considered less likely as patient is chronically on Xarelto (2) Essential (primary) hypertension: Currently systolic blood pressure is 170 at the time of assessment. Start patient's home medications including hydralazine 50 mg twice daily, reduce dose of metoprolol to 25 mg p.o. twice daily due to noted bradycardia with heart rate 55. Patient is asymptomatic in this regard. As needed hydralazine if blood pressure remains elevated and spite of home medications. (3) Atrial fibrillation: Currently with bradycardia, sinus bradycardia with heart rate of 55/min. Reduce metoprolol as noted above. Qualifiers: Atrial fibrillation type: unspecified Qualified Code(s): I48.91 - Unspecified atrial fibrillation (4) Chest pain: No acute ST-T wave changes on EKG. Noted sinus bradycardia. Baseline troponin At 28, downtrending to 25 at 2 hours and then 25 at 6 hours. unlikely ACS unlikely PE as on xarelto Plan DVT prophylaxis: Continue home dose of Xarelto Patient has chronic pain, continue home regimen of oxycodone 15 mg every 6 hours as needed and oxycodone APAP 10/325 for breakthrough pain. PDMP PDMP Reviewed: Not Reviewed Attestations Medical Necessity Statement*: > 2 midnight stay anticipated Coding Level of Care Code Acute Code for g Fwd Diagnoses COVID-19 U07.1 Essential (primary) hypertension I10 Atrial fibrillation, unspecified type I48.91 Atrial fibrillation type: unspecified Chest pain R07.9
[2025-01-18] MEDS: oxyCODONE IR 30 mg Tablet 15 MG PO (17:41)
[2025-01-18] MEDS: metoprolol tartrate 50 mg Tablet 25 MG PO (17:42)
[2025-01-18] MEDS: insulin lispro 100 unit/1 mL SUBCUT ×2 (18:12→21:02)
[2025-01-18] MEDS: lanolin oint 7 gm 1 APPLIC TOPICAL (18:13)
[2025-01-18] MEDS: budesonide 0.5 mg/2 mL Neb INHALATION (20:35)
[2025-01-18 20:48] LABS: Glucose Point of Care 241 mg/dL (70-110)
[2025-01-18] MEDS: oxyCODONE-APAP 10-325 mg Tablet 1 TAB PO (21:01)
[2025-01-18] MEDS: gabapentin 400 mg Capsule 800 MG PO (21:02)
[2025-01-19] VITALS (17 sets, daily range): BP systolic 131–171; BP diastolic 73–89; PULSE 55–82; RESP 16–20; TEMP 36.4–36.7; O2SAT 90–96
[2025-01-19] MEDS: ipratropium-albuterol 3 mL Neb INHALATION ×4 (01:54→21:06)
[2025-01-19 04:21] LABS: Basophils % 0.4 %; Eosinophils % 0.2 %; Hematocrit 39.2 % (36-47); Lymphocytes # 0.6 10^3/uL (0.8-4.8); Lymphocytes % 10.9 %; Mean Corpuscular HGB Conc 30.4 g/dL (30-55); Mean Corpuscular Hemoglobin 29.5 pg (27-33); Mean Corpuscular Volume 97.3 fl (85-98); Mean Platelet Volume 10.5 fL (7.4-10.4); Monocytes # 0.5 10^3/uL (0.2-0.9); Monocytes % 9.6 %; Neutrophils # 4.31 10^3/uL (1.8-7.7); Nucleated Red Blood Cells % 0 %; Platelet Count 154 10^3/cmm (157-399); Red Blood Count 4.03 10^6/uL (3.85-5.65); White Blood Count 5.52 10^3/uL (3.29-11.43)
[2025-01-19 04:45] LABS: Alanine Aminotransferase 22 U/L (0-33); Albumin Level 3.3 g/dL (3.5-5.2); Alkaline Phosphatase 59 U/L (35-105); Aspartate Amino Transferase 24 U/L (0-32); Blood Urea Nitrogen 26 mg/dL (8-23); C Reactive Protein 62.2 mg/L (0.0-4.9); Calcium 8.6 mg/dL (8.5-10.5); Carbon Dioxide 23 mmol/L (22-29); Chloride 100 mmol/L (98-107); Creatinine Clr Calc Pharmacy 63.3808; Globulin 3.1 g/dL (1.3-4.6); Glucose 244 mg/dL (65-115); Osmolality Calculated 295 mOsm/kg (285-295); Sodium 136 mmol/L (136-145); Total Bilirubin 0.3 mg/dL (0.15-1.2); Total Protein 6.4 g/dL (6.6-8.7)
[2025-01-19 04:48] LABS: Anion Gap 17.5 (5-19); Potassium 4.5 mmol/L (3.5-5.1)
[2025-01-19 06:33] LABS: Glucose Point of Care 209 mg/dL (70-110)
--- OUTSIDE RECORDS SUMMARY | 2025-01-19 06:49 | XMS_ITS | Encounter Summary ---
Author Organization [facility] Address 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 Gender Identity Not on file Sexual Orientation Not on file documented as of this encounter Miscellaneous Notes * Telephone Encounter - Julia Jaramillo LPN - 01/17/2025 1:02 PM CST Medication Refill Request Last Fill Date:05/22/24 #60 with 6 RF LACEY 01/16/25 Recent and Future Visits: Recent Visits Date Type Provider Dept 01/16/25 Office Visit Ramona Galarza, DO [facility] 09/19/24 Office Visit Ramona Galarza, DO [facility] 05/22/24 Office Visit Ramona Galarza, DO [facility] [place] 02/19/24 Office Visit Ramona Galarza, DO [facility] [place] 02/15/24 Office Visit Sharon Lee [facility] 11/20/23 Office Visit Ramona Galarza, DO [facility] [place] 08/21/23 Office Visit Ramona Galarza, DO [facility] Showing recent visits within past 540 days with a meds authorizing provider and meeting all other requirements Future Appointments Date Type Provider Dept 03/18/25 Appointment Sandrine Braga [facility] 06/18/25 Appointment Ramona Galarza DO [facility] Showing future appointments within next 365 days [...] - 1950 Check and review of the [place] PDMP performed on 01/17/2025 at 1:02 PM was FINISHER documented in this encounter Plan of Treatment Upcoming Encounters Date Type Department Care Team (Late st Contact Info) Description 03/18/2025 10:00 AM CDT Office Visit [facility] [address] [place] [address] BragaFebruary, FLOWER SHOP MANAGER [address] [place] [address] 06/18/2025 2:20 PM CDT Office Visit [facility] [address] [place] [id number] Ramona Galarza DO [address] [place] [address] documented as of this encounter Visit Diagnoses Not on filedocumented in this encounter Care Teams Dip Stand Loader Relationship Specialty Start Date End Date Ramona Galarza DO [address] [place] [id number] PCP - General Family Practice 02/12/24 documented as of this encounter
--- OUTSIDE RECORDS SUMMARY | 2025-01-19 06:49 | XMS_ITS | Encounter Summary ---
Author Organization [facility] Address [address] [place] [address] Care Team Providers Care Russian Rubber Name Role Phone Ramona Galarza DO Primary Care Provider [phone] Encounter Details Date Type Department Care Team (Late st Contact Info) Description 01/01/2025 Orders Only [facility] Medicine [place] [address] [place] [address] Ramona Galarza DO [address] [place] [address] Type 2 diabetes mellitus without complication, without long-term current use of insulin (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 [address] [place] [address] 06/18/2025 2:20 PM CDT Office Visit [facility] [address] [place] [address] Ramona Galarza DO [address] [place] [phone] Scheduled Orders Name Type Priority Associated Diagnoses Orde r Schedule HEMOGLOBIN A1C Lab Routine Type 2 diabetes mellitus without complication, without long-term current use of insulin (CMS/HCC) Expected: 01/11/2025 (Approximate), Expires: 01/21/2025 documented as of this encounter Visit Diagnoses Diagnosis Type 2 diabetes mellitus without complication, without long-term current use of insulin (CMS/HCC) documented in this encounter Care Teams Russian Rubber Relationship Specialty Start Date End Date Ramona Galarza DO [address] [place] [facility] [place] [id number] PCP - General Family Practice 4/1/24 documented as of this encounter
--- OUTSIDE RECORDS SUMMARY | 2025-01-19 06:49 | XMS_ITS | Clinical Summary ---
Author Organization [facility] Address [address] [place] [address] Care Team Providers Care Wool Hat Flanger Name Role Phone Ramona Galarza DO Primary Care Provider [phone] Allergies No known active allergies Medications loratadine/ps [...] 02/09/20 24 Active naloxone (NARCAN) 4 mg/spray Lenore, Non-Aerosol EMERGENCY USE ONLY: Administer 1 spray [...] Type Department Care Team Description 01/17/2025 Refill [facility] [address] [facility] [place] [address] Ramona Galarza DO 01/16/2025 1:40 PM ASSURANCE ENGINEER Office Visit [facility] [address] [place] [address] Ramona Galarza, DO Type 2 diabetes mellitus without complication, without long-term current use of insulin ([facility]) (Primary Dx); Encounter for colorectal cancer screening; Screening mammogram, encounter for; Fever, unspecified fever cause; Shortness of breath; Pneumonia of both lower lobes due to infectious organism; Lumbago with sciatica, right side; Dyspnea on exertion; Chronic respiratory failure with hypoxia and hypercapnia ([facility]) 01/01/2025 Orders Only [facility] [address] [place] [address] Ramona Galarza, Type 2 diabetes mellitus without complication, without long-term current use of insulin ([facility]) 12/17/2024 Refill [facility] [address] [place] [address] Ramona Galarza, DO Lumbago with sciatica, right side 12/05/2024 Orders Only [facility] [address] [place] [address] Ramona Galarza, Type 2 diabetes mellitus without complication, without long-term current use of insulin ([facility]) 12/04/2024 External Device Data STL ABSTRACTION Provider, Abstract 12/03/2024 External Device Data STL ABSTRACTION Provider, Abstract 11/21/2024 Refill [facility] [address] [place] [address] Ramona Galarza, DO Lumbago with sciatica, right side 11/21/2024 Telephone [facility] [address] [place] [address] Ramona Galarza, Provider Call 11/20/2024 Refill [facility] [address] [place] [phone] Ramona Galarza, DO Lumbago with sciatica, right side 11/05/2024 Telephone [facility] [address] [facility] [place] [phone] Ramona Galarza, DO Primary Care Outreach (BP); Patient Communication 10/31/2024 Orders Only [facility] [address] [facility] [place] [phone] Ramona Galarza, DO Type 2 diabetes mellitus without complication, without long-term current use of insulin 10/21/2024 Abstract [facility] Outbound Calling [address] [place] [address] Provider, Abstract 10/21/2024 Refill [facility] [address] [place] [address] Ramona Galarza, DO Lumbago with sciatica, right [...] on file Legal Sex Female 9:45 PM ASSURANCE ENGINEER Gender Identity Not on file Sexual Orientation Not on file Last Filed Vital Signs Vital Sign Reading Time Taken Comments Blood Pressure 162/70 01/16/2025 1:58 PM ASSURANCE ENGINEER Pulse 93 01/16/2025 1:41 PM ASSURANCE ENGINEER Temperature 38.3 ??C (101 ??F) 01/16/2025 1:41 PM ASSURANCE ENGINEER Respiratory Rate 17 02/10/2024 9:00 AM CDT Oxygen Saturation 77% 01/16/2025 1:41 PM ASSURANCE ENGINEER Inhaled Oxygen Concentration - - Weight 103.6 kg (228 lb 6 oz) 01/16/2025 1:41 PM ASSURANCE ENGINEER Height 157.5 cm (5' 2 ) 01/16/2025 1:41 PM ASSURANCE ENGINEER s tated Body Mass Index 41.77 01/16/2025 1:41 PM ASSURANCE ENGINEER Plan of Treatment Upcoming Encounters Date Type Department Care Team (Late st Contact Info) Description 03/18/2025 10:00 AM CDT Office Visit [facility] [address] [facility] [place] [phone] February, TOWER ATTENDANT [address] [facility] [place] [phone] 06/18/2025 2:20 PM CDT Office Visit [facility] [address] [place] [place] [phone] Ramona Galarza, DO [address] [facility] [place] [facility] [place] [phone] Health Maintenance Due Date Last Done Comments [...] uACR (Auto Order) 11/13/2024 09/19/2024 Medicare Advantage ([place]) Preventative Visit/Annual Wellness Visit 11/13/2024 09/19/2024, 08/21/2023, 02/17/2022 DIABETES ANNUAL FOOT EXAM 09/19/20252023, 05/22/2024, 02/19/2024, Additional history exists DIABETES MICROALBUMIN ANNUAL SCREEN 09/19/2025 09/19/2024, 01/27/2021 OSTEOPOROSIS SCREENING Completed 02/20/2017 INFLUENZA VACCINE Completed 09/19/2024, , 08/19/2022, Additional history exists Procedures Procedure Name Priority Date/Time Associated Diagnosis Comments POC INFLUENZA A AND B ANTIGEN Routine 01/16/2025 2:10 PM ASSURANCE ENGINEER Fever, unspecified fever cause Shortness of breath POC COVID-19 ANTIGEN Routine 01/16/2025 2:10 PM ASSURANCE ENGINEER Fever, unspecified fever cause Shortness of breath MICROALBUMIN/CREATI NINE RATIO, RANDOM UR Routine 09/19/2024 2:03 PM ASSURANCE ENGINEER Type 2 diabetes mellitus without complication, without long-term current use of insulin ([facility]) BASIC METABOLIC PANEL Stat 02/09/2024 10:05 AM CDT HEMOGLOBIN A1C Routine 02/06/2024 LIPID PANEL Routine 08/24/2021 DIABETES EYE EXAM Routine 12/14/2020 from Last 3 Months or Most Recently Relevant to Health Maintenance Results * POC COVID-19 ANTIGEN (01/16/2025 2:10 PM ASSURANCE ENGINEER) Pathologist [facility] COVID-19 ANTIGEN POC Presumptively Negative Presumptively Negative [facility] INTERNAL KIT QC POC Pass Pass [facility] KIT LOT NUMBER POC [id number] [facility] KIT EXP DATE POC 09/13/2025 [facility] READ METHOD POC Instrument [facility] Upper Respiratory 01/16/2025 2:10 PM ASSURANCE ENGINEER Ramona Galarza DO POINT OF CARE TESTING Final Result Performing Organization Address [facility] Co de Phone Number [facility] CLIA# [id number] [address] [place] [address] * POC INFLUENZA A AND B ANTIGEN (01/16/2025 2:10 PM ASSURANCE ENGINEER) [facility] INFLUENZA A AG POC Negative/Not Detected Negative/Not Detected [facility] INFLUENZA B AG POC Negative/Not Detected Negative/Not Detected [facility] INTERNAL KIT QC POC Pass Pass [facility] KIT LOT NUMBER POC [id number] [facility] KIT EXP DATE POC 08/15/2026 [facility] READ METHOD POC Visual [facility] Upper Respiratory ANTERIOR NARES SWAB / Unknown 01/16/2025 2:10 PM ASSURANCE ENGINEER Ramona Galarza DO POINT OF CARE TESTING Final Result Performing Organization Address [facility] Co de Phone Number [facility] CLIA# [id number] [address] [place] [address] * (ABNORMAL) MICROALBUMIN/CREATININE RATIO, RANDOM UR (09/19/2024 2:03 PM ASSURANCE ENGINEER) [facility] Creatinine, Urine 100 20 - 275 mg/dL [...] category. FASTING:UNKNOWN FASTING: UNKNOWN Test Performed at: [facility] [address] [place], [place] ??[address] Cody Faith MD Urine URINE SPECIMEN OBTAINED BY CLEAN CATCH PROCEDURE / Unknown 09/19/2024 2:03 PM ASSURANCE ENGINEER 09/20/2024 2:40 AM ASSURANCE ENGINEER us Ramona Galarza DO URINE ORDERABLES Final Resu lt [facility] [phone] [facility] [address] [place] [address] * (ABNORMAL) BASIC METABOLIC PANEL (02/09/2024 10:05 AM CDT) SODIUM 137 136 - 145 mmol/L 02/09/2024 10:52 AM [facility] POTASSIUM 4.6 3.5 - 5.1 mmol/L 02/09/2024 10:52 AM [facility] CHLORIDE 100 98 - 107 mmol/L 02/09/2024 10:52 AM [facility] CO2 28 22 - 29 mmol/L 02/09/2024 10:52 AM [facility] CALCIUM 9.2 8.8 - 10.2 mg/dL 02/09/2024 10:52 AM [facility] BUN 42(H) 8 - 23 mg/dL 02/09/2024 10:52 AM [facility] CREATININE 1.43(H) 0.51 - 0.95 mg/dL 02/09/2024 10:52 AM [facility] Comment:The GFR result is no t clinically significant on patients <18 or >70 years of age. GLUCOSE 198(H) 74 - 99 mg/dL 02/09/2024 10:52 AM [facility] GFR 39 mL/min/1. 73 sq meter 02/09/2024 10:52 AM [facility] Comment:eGFR calculated with 2020 CKD-EPI equation. Vegetarian diet, extremely high or low muscle mass, and may affect results. Cystatin C with Glomerular Filtration Rate is a suitable alternative for these patients. ANION GAP 9 9 - 20 mmol/L 02/09/2024 10:52 AM CDT [facility] Blood Venipuncture / Unknown 02/09/2024 10:05 AM CDT 02/09/2024 10:16 AM CDT us Amado Coker MD CHEMISTRY ORDERABLES Final Resu lt [facility] CLIA # [id number] [address] [place] [address] * HEMOGLOBIN A1C (02/06/2024) ABSTRACTED HGB A1C 8.7 % [facility] Blood 02/06/2024 us Abstract Provider CHEMISTRY ORDERABLES Final Res ult Performing Organization Address [facility] Co de Phone Number [facility] * LIPID PANEL (08/24/2021) ABSTRACTED CHOLESTEROL 185 ABSTRACTED TRIGLYCERIDE 226 ABSTRACTED HDL 37 ABSTRACTED LDL CALCULATED 103 Blood 08/24/2021 us Abstract Provider CHEMISTRY ORDERABLES Final Res ult * DIABETES EYE EXAM (12/14/2020) us Abstract Provider HEALTH MAINTENANCE Final Resul t from Last 3 Months or Most Recently Relevant to Health Maintenance Insurance MEDICAID [facility] DUAL COMPLETE CHOICE PPO DSNP [facility] [id number] Advance Directives For more information, please contact: [phone] * Full Code (Latest Code Status on File) Date Activated Date Inactivated Comments 02/07/2024 11:36 PM 02/10/2024 1:11 PM Care Teams Wool Hat Flanger Relationship Specialty Start Date End Date Ramona Galarza DO [address] [facility] [address] PCP - General Family Practice 02/12/24
--- OUTSIDE RECORDS SUMMARY | 2025-01-19 06:49 | XMS_ITS | Clinical Summary ---
Author Organization [facility] Address [address] [place] [address] Care Team Providers Care Corn Breeder Name Role Phone Unavailable Primary Care Provider [...] mouth daily. Active mometasone (NASONEX) 50 mcg/actuation Datto, Non-Aerosol daily. 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
--- OUTSIDE RECORDS SUMMARY | 2025-01-19 06:49 | XMS_ITS | Encounter Summary ---
Author Organization [facility] Address [address] [place] [address] Care Team Providers Care Trainman Name Role Phone Ramona Galarza DO Primary Care Provider [phone] Reason for Referral * Radiology Services (Routine) - Open Specialty Diagnoses / Procedures Referred By Tierra t Referred To Contact Diagnoses Screening mammogram, encounter for Procedures MAMMO 3D EMILY SCREEN BILAT W OR WO CAD CHG SCREENING MAMMOGRAPHY BI 2-VIEW BREAST INC CAD CHG SCREENING DIGITAL BREAST TOMOSYNTHESIS BI Ramona Galarza DO [address] [place] [address] Phone: tel: fax: [address] [address] Phone: tel: fax: Referral ID Status Reason Start Date Expiration Date Visits Requested Visits Authorized [id number] Open Ordering Department To Schedule 01/16/2025 02/16/2026 1 1 DREN'S ZOO CARETAKER Reason for Visit * Reason Comments Chronic Care Management Wheezing For the past couple of days--has fever that began yesterday Encounter Details Date Type Department Care Team (Late st Contact Info) Description 01/16/2025 1:40 PM CHILDREN'S ZOO CARETAKER Office Visit [facility] [place] [address] [place] [address] Ramona Galarza DO [address] [place] [phone] Type 2 diabetes mellitus without complication, without [...] on file Legal Sex Female 9:45 PM CHILDREN'S ZOO CARETAKER Gender Identity Not on file Sexual Orientation Not on file documented as of this encounter Last Filed Vital Signs Vital Sign Reading Time Taken Comments Blood Pressure 162/70 01/16/2025 1:58 PM CHILDREN'S ZOO CARETAKER Pulse 93 01/16/2025 1:41 PM CHILDREN'S ZOO CARETAKER Temperature 38.3 ??C (101 ??F) 01/16/2025 1:41 PM CHILDREN'S ZOO CARETAKER Respiratory Rate - - Oxygen Saturation 77% 01/16/2025 1:41 PM CHILDREN'S ZOO CARETAKER Inhaled Oxygen Concentration - - Weight 103.6 kg (228 lb 6 oz) 01/16/2025 1:41 PM CHILDREN'S ZOO CARETAKER Height 157.5 cm (5' 2 ) 01/16/2025 1:41 PM CHILDREN'S ZOO CARETAKER s tated Body Mass Index 41.77 01/16/2025 1:41 PM CHILDREN'S ZOO CARETAKER documented in this encounter Miscellaneous Notes * Patient Instructions - Sue York, MEMS INTEGRATION ENGINEER - 01/16/2025 1:55 PM CHILDREN'S ZOO CARETAKER What is Diabetic Retinopathy? Diabetic retinopathy is the most common eye disease in patients with diabetes and a leading cause of blindness in [place] adults. It is caused by changes in [...] a year and remember to ask your automatic glove former or shot bagger to send a report of their findings [...] at high risk for vision loss. Your professional sports scout can tell if you have diabetic retinopathy. [...] help prevent it from getting worse. ?? DREN'S ZOO CARETAKER documented in this encounter Plan of Treatment Upcoming Encounters Date Type Department Care Team (Late st Contact Info) Description 03/18/2025 10:00 AM CDT Office Visit [facility] [address] [place] [address] February, VOLLEYBALL COACH [address] [place] [address] 06/18/2025 2:20 PM CDT Office Visit [facility] [address] [facility] [place] [address] Ramona Galarza DO [address] [place] [address] Scheduled Orders Name Type Priority Associated Diagnoses [...] POC COVID-19 ANTIGEN Routine 01/16/2025 2:10 PM CHILDREN'S ZOO CARETAKER Fever, unspecified fever cause Shortness of breath POC INFLUENZA A AND B ANTIGEN Routine 01/16/2025 2:10 PM CHILDREN'S ZOO CARETAKER Fever, unspecified fever cause Shortness of breath documented in this encounter Results * POC INFLUENZA A AND B ANTIGEN (01/16/2025 2:10 PM CHILDREN'S ZOO CARETAKER) INFLUENZA A AG POC Negative/Not Detected Negative/Not Detected [facility] INFLUENZA B AG POC Negative/Not Detected Negative/Not Detected [facility] INTERNAL KIT QC POC Pass Pass [facility] KIT LOT NUMBER POC [phone] [facility] KIT EXP DATE POC 08/15/2026 [facility] READ METHOD POC Visual [facility] Upper Respiratory ANTERIOR NARES SWAB / Unknown 01/16/2025 2:10 PM CHILDREN'S ZOO CARETAKER us Ramona Galarza DO POINT OF CARE TESTING Final Result [facility]# [id number] [address] [place] [address] * POC COVID-19 ANTIGEN (01/16/2025 2:10 PM CHILDREN'S ZOO CARETAKER) COVID-19 ANTIGEN POC Presumptively Negative Presumptively Negative [facility] INTERNAL KIT QC POC Pass Pass [facility] KIT LOT NUMBER POC [id number] [facility] KIT EXP DATE POC 09/13/2025 [facility] READ METHOD POC Instrument [facility] Upper Respiratory 01/16/2025 2:10 PM CHILDREN'S ZOO CARETAKER Ramona Galarza DO POINT OF CARE TESTING Final Result [facility] CLIA# [id number] [address] [place] [address] documented in this encounter Visit Diagnoses Diagnosis [...] to infectious organism Given 01/16/2025 2:57 PM CHILDREN'S ZOO CARETAKER 1,000 mg Ventrogluteal, Right dexAMETHasone (DECADRON) injection 4 mg 4 mg, IM, ONE TIME ONLY, 1 dose, On Josie 01/16/25 at 1445, RoutineIndications:Pneu monia of both lower lobes due to infectious organism Given 01/16/2025 2:58 PM CHILDREN'S ZOO CARETAKER 4 mg Ventrogluteal, Left triamcinolone acetonide (KENALOG-40) injectable suspension 40 mg 40 mg, IM, ONE TIME ONLY, 1 dose, On Josie 01/16/25 at 1445, RoutineIndications:Pneu monia of both lower lobes due to infectious organism Given 01/16/2025 2:59 PM CHILDREN'S ZOO CARETAKER 40 mg Ventrogluteal, Left documented in this encounter Care Teams Trainman Relationship Specialty Start Date End Date Ramona Galarza DO [address] [place] [address] PCP - General Family Practice 02/12/24 documented as of this encounter
[2025-01-19] MEDS: budesonide 0.5 mg/2 mL Neb INHALATION ×2 (07:39→21:06)
[2025-01-19] MEDS: atorvastatin 40 mg Tablet 20 MG PO (09:11)
[2025-01-19] MEDS: metoprolol tartrate 50 mg Tablet 25 MG PO ×2 (09:11→17:39)
[2025-01-19] MEDS: rivaroxaban 10 mg Tablet PO (09:11)
[2025-01-19] MEDS: pantoprazole DR 40 mg Tablet PO (09:11)
[2025-01-19] MEDS: insulin lispro 100 unit/1 mL SUBCUT ×4 (09:11→20:28)
[2025-01-19] MEDS: oxyCODONE IR 30 mg Tablet 15 MG PO ×2 (09:12→15:13)
[2025-01-19] MEDS: fenofibrate 145 mg Tablet PO (09:12)
[2025-01-19] MEDS: hyDRALAzine 50 mg Tablet PO ×3 (09:12→20:29)
[2025-01-19] MEDS: amlodipine 5 mg Tablet PO (09:12)
[2025-01-19] MEDS: gabapentin 400 mg Capsule 800 MG PO ×3 (09:12→20:29)
[2025-01-19 11:26] LABS: Glucose Point of Care 266 mg/dL (70-110)
[2025-01-19] MEDS: oxyCODONE-APAP 10-325 mg Tablet 1 TAB PO ×2 (12:33→20:29)
[2025-01-19] MEDS: cefTRIAXone 1,000 mg SDV 1000 MG IVP (15:11)
[2025-01-19] MEDS: dexamethasone 4 mg/mL INJ 6 MG IVP (15:12)
[2025-01-19] MEDS: remdesivir 100 MG in sodium chloride 0.9% (100 ml) 80 ML IV (15:13)
[2025-01-19] MEDS: fixodent 39 gm Tube 1 APPLIC DENTAL (15:56)
[2025-01-19 16:37] LABS: Glucose Point of Care 193 mg/dL (70-110)
--- NOTE | 2025-01-19 17:10 | P.PN_ITS ---
Subjective 2 Subjective: Tmax 100.1 Fahrenheit overnight. States that her breathing feels slightly better. Currently on 2 L/min supplemental O2. Vitals/I&O/Wt Last Vital Signs Temp 97.9 F 01/19/25 12:00 Pulse 67 01/19/25 13:55 Resp 18 01/19/25 15:13 BP 154/76 01/19/25 12:00 Pulse Ox 95 01/19/25 15:13 O2 Del Method Nasal Cannula 01/19/25 13:45 O2 Flow Rate 2 01/19/25 13:45 01/19/25 01/19/25 01/19/25 07:59 14:59 22:59 Intake Total 240 / 240 Balance 240 / 240 Weight last 48 hrs Weight 102.421 kg Weight 105.143 kg Weight 97.069 kg Physical Exam 2 Narrative: General: No acute distress, AO x3 HEENT: PERRLA, pupils bilaterally equal and reactive, pallors not present Chest: scattered wheezing B/L CVS: S1-S2 regular, no murmurs, no tachycardia, no gallops, no rubs Abdomen: Soft, nontender, no organomegaly, bowel sounds present Neuro: No focal deficits, no facial deformity, AO x3, power 5/5 in all limbs Data 01/19/25 03:57 01/19/25 03:57 Micro: Microbiology 01/18/25 08:11 Blood Culture - Preliminary Blood NEGATIVE TO DATE 01/18/25 08:09 Blood Culture - Preliminary Blood NEGATIVE TO DATE A&P Assessment and plan (1) COVID-19: Remdisivir 200mg iv x 1 followed by 100mg iv daily dexamethasone 6mg IVP daily duoneb q6h, budesonide q12h empiric CTX trend inflammatory markers including CRP . PE considered less likely as patient is chronically on Xarelto (2) Essential (primary) hypertension: Currently systolic blood pressure is 170 at the time of assessment. Start patient's home medications including hydralazine 50 mg twice daily, reduce dose of metoprolol to 25 mg p.o. twice daily due to noted bradycardia with heart rate 55. Patient is asymptomatic in this regard. As needed hydralazine if blood pressure remains elevated and spite of home medications. (3) Atrial fibrillation: Currently with bradycardia, sinus bradycardia with heart rate of 55/min. Reduce metoprolol as noted above. Qualifiers: Atrial fibrillation type: unspecified Qualified Code(s): I48.91 - Unspecified atrial fibrillation (4) Chest pain: No acute ST-T wave changes on EKG. Noted sinus bradycardia. Baseline troponin At 28, downtrending to 25 at 2 hours and then 25 at 6 hours. unlikely ACS unlikely PE as on xarelto Plan DVT prophylaxis: Continue home dose of Xarelto Patient has chronic pain, continue home regimen of oxycodone 15 mg every 6 hours as needed and oxycodone APAP 10/325 for breakthrough pain. January 19, 2025 Febrile 100.1 Fahrenheit overnight. CRP at 62. Oxygen requirement slightly better today. Blood pressure ranging up to 170 systolic. Will increase hydralazine to 50 mg 3 times daily. Patient additionally states she takes Bumex at home. Will resume at home dosing. Heart rate currently ranging 55-67 today. Continue remdesivir, empiric ceftriaxone, IV steroids. PDMP PDMP Reviewed: Not Reviewed Attestations 2 Medical Necessity Statement*: Continued for treatment of COVID-19. Coding Level of Care Code Acute Code for Chg Fwd Diagnoses COVID-19 U07.1 Essential (primary) hypertension I10 Atrial fibrillation, unspecified type I48.91 Atrial fibrillation type: unspecified Chest pain R07.9
[2025-01-19] MEDS: bumetanide 1 mg Tablet PO (17:39)
[2025-01-19 20:34] LABS: Glucose Point of Care 481 mg/dL (70-110)
[2025-01-19 21:47] LABS: Glucose Point of Care 432 mg/dL (70-110)
[2025-01-20] VITALS (15 sets, daily range): BP systolic 151–164; BP diastolic 69–99; PULSE 63–81; RESP 15–20; TEMP 36.4–37.3; O2SAT 90–94
[2025-01-20] MEDS: ipratropium-albuterol 3 mL Neb INHALATION ×4 (02:03→21:23)
[2025-01-20 03:10] LABS: Basophils % 0.1 %; Eosinophils % 0.1 %; Hematocrit 41.2 % (36-47); Lymphocytes # 1.1 10^3/uL (0.8-4.8); Lymphocytes % 13.6 %; Mean Corpuscular HGB Conc 31.8 g/dL (30-55); Mean Corpuscular Hemoglobin 29.4 pg (27-33); Mean Corpuscular Volume 92.4 fl (85-98); Mean Platelet Volume 11.3 fL (7.4-10.4); Monocytes # 0.7 10^3/uL (0.2-0.9); Monocytes % 9.4 %; Neutrophils # 5.84 10^3/uL (1.8-7.7); Neutrophils % 75.9 %; Nucleated Red Blood Cells % 0 %; Platelet Count 235 10^3/cmm (157-399); Red Blood Count 4.46 10^6/uL (3.85-5.65); Red Cell Distribution Width 14.2 % (12.1-15.1)
[2025-01-20 03:32] LABS: Alanine Aminotransferase 26 U/L (0-33); Albumin Level 3.8 g/dL (3.5-5.2); Alkaline Phosphatase 89 U/L (35-105); Anion Gap 19.7 (5-19); Aspartate Amino Transferase 19 U/L (0-32); Blood Urea Nitrogen 32 mg/dL (8-23); C Reactive Protein 55.4 mg/L (0.0-4.9); Calcium 9.4 mg/dL (8.5-10.5); Carbon Dioxide 27 mmol/L (22-29); Chloride 98 mmol/L (98-107); Creatinine Clr Calc Pharmacy 51.0741; Globulin 3.3 g/dL (1.3-4.6); Glucose 340 mg/dL (65-115); Osmolality Calculated 310 mOsm/kg (285-295); Potassium 4.7 mmol/L (3.5-5.1); Sodium 140 mmol/L (136-145); Total Bilirubin 0.2 mg/dL (0.15-1.2); Total Protein 7.1 g/dL (6.6-8.7)
[2025-01-20] MEDS: oxyCODONE IR 30 mg Tablet 15 MG PO ×3 (05:20→21:16)
[2025-01-20 06:23] LABS: Glucose Point of Care 290 mg/dL (70-110)
[2025-01-20] MEDS: budesonide 0.5 mg/2 mL Neb INHALATION ×2 (08:35→21:23)
[2025-01-20] MEDS: metoprolol tartrate 50 mg Tablet 25 MG PO ×2 (09:54→17:49)
[2025-01-20] MEDS: fenofibrate 145 mg Tablet PO (09:54)
[2025-01-20] MEDS: amlodipine 5 mg Tablet PO (09:54)
[2025-01-20] MEDS: bumetanide 1 mg Tablet PO (09:54)
[2025-01-20] MEDS: gabapentin 400 mg Capsule 800 MG PO ×3 (09:54→21:15)
[2025-01-20] MEDS: rivaroxaban 10 mg Tablet PO (09:54)
[2025-01-20] MEDS: hyDRALAzine 50 mg Tablet PO ×3 (09:54→21:15)
[2025-01-20] MEDS: pantoprazole DR 40 mg Tablet PO (09:54)
[2025-01-20] MEDS: oxyCODONE-APAP 10-325 mg Tablet 1 TAB PO ×2 (09:55→17:50)
[2025-01-20] MEDS: atorvastatin 40 mg Tablet 20 MG PO (09:55)
[2025-01-20] MEDS: insulin lispro 100 unit/1 mL SUBCUT ×4 (09:55→21:15)
[2025-01-20 11:03] LABS: Glucose Point of Care 278 mg/dL (70-110)
--- NOTE | 2025-01-20 13:11 | P.PN_ITS ---
Subjective 2 Subjective: Seen this morning. She complains of pain at right lung base every time she takes a deep breath. Patient is COVID-positive this admission. Currently on 1 L nasal cannula. Vitals/I&O/Wt Last Vital Signs Temp 98.2 F 01/20/25 11:08 Pulse 63 01/20/25 11:08 Resp 16 01/20/25 11:08 BP 164/99 01/20/25 11:08 Pulse Ox 92 01/20/25 11:08 O2 Del Method Nasal Cannula 01/20/25 11:08 O2 Flow Rate 1 01/20/25 11:08 01/19/25 01/20/25 01/20/25 22:59 06:59 14:59 Intake Total 720 / 960 480 / 480 Balance 720 / 960 480 / 480 Weight last 48 hrs Weight 106.186 kg Weight 102.421 kg Weight 105.143 kg Physical Exam 2 Narrative: General: No acute distress, AO x3 HEENT: PERRLA, pupils bilaterally equal and reactive, pallors not present Chest: scattered wheezing B/L CVS: S1-S2 regular, no murmurs, no tachycardia, no gallops, no rubs Abdomen: Soft, nontender, no organomegaly, bowel sounds present Neuro: No focal deficits, no facial deformity, AO x3, Data 01/20/25 02:26 01/20/25 02:26 Micro: Microbiology 01/18/25 08:11 Blood Culture - Preliminary Blood NEGATIVE TO DATE 01/18/25 08:09 Blood Culture - Preliminary Blood NEGATIVE TO DATE A&P Assessment and plan (1) COVID-19: Remdisivir 200mg iv x 1 followed by 100mg iv daily dexamethasone 6mg IVP daily duoneb q6h, budesonide q12h empiric CTX trend inflammatory markers including CRP . PE considered less likely as patient is chronically on Xarelto (2) Essential (primary) hypertension: Currently systolic blood pressure is 170 at the time of assessment. Start patient's home medications including hydralazine 50 mg twice daily, reduce dose of metoprolol to 25 mg p.o. twice daily due to noted bradycardia with heart rate 55. Patient is asymptomatic in this regard. As needed hydralazine if blood pressure remains elevated and spite of home medications. (3) Atrial fibrillation: Currently with bradycardia, sinus bradycardia with heart rate of 55/min. Reduce metoprolol as noted above. Qualifiers: Atrial fibrillation type: unspecified Qualified Code(s): I48.91 - Unspecified atrial fibrillation (4) Chest pain: No acute ST-T wave changes on EKG. Noted sinus bradycardia. Baseline troponin At 28, downtrending to 25 at 2 hours and then 25 at 6 hours. unlikely ACS unlikely PE as on xarelto Plan DVT prophylaxis: Continue home dose of Xarelto Patient has chronic pain, continue home regimen of oxycodone 15 mg every 6 hours as needed and oxycodone APAP 10/325 for breakthrough pain. January 19, 2025 Febrile 100.1 Fahrenheit overnight. CRP at 62. Oxygen requirement slightly better today. Blood pressure ranging up to 170 systolic. Will increase hydralazine to 50 mg 3 times daily. Patient additionally states she takes Bumex at home. Will resume at home dosing. Heart rate currently ranging 55-67 today. Continue remdesivir, empiric ceftriaxone, IV steroids. 01/20/2025 Patient has been afebrile from the last 24 hours. She feels better however complains of chest pain which is most likely pleuritic. Will check troponin series and EKG. Unlikely this is to be cardiac in origin however will rule out. Patient may build to discharge home in next 24 to 48 hours pending clinical improvement. PDMP PDMP Reviewed: Not Reviewed Attestations 2 Medical Necessity Statement*: Continued for treatment of COVID-19. Diagnoses COVID-19 U07.1 Essential (primary) hypertension I10 Atrial fibrillation, unspecified type I48.91 Atrial fibrillation type: unspecified Chest pain R07.9
--- NOTE | 2025-01-20 13:23 | ECG_ITS ---
[email or web address] Test Date: 2025-01-20 Pat Name: Elena Salinas Department: Room: 270 Gender: Female Health Spa Manager: : 1950 Requested By: Natalie Munson Order Number: [id number] Reading MD: MINH POWELL Measurements Intervals [place] Rate: 64 P: 23 [place]: 195 QRS: -17 QRSD: 92 T: 29 QT: 401 QTc: 416 Interpretive Statements SINUS RHYTHM VOLTAGE CRITERIA FOR LVH [MEETS CRITERIA IN ONE OF: R(aVL), S(V1), R(V5), R(V5/V6)+S(V1)] Compared to ECG 01/18/2025 13:57:04 Left ventricular hypertrophy now present Ectopic atrial rhythm no longer present Electronically Signed On 01-20-2025 22:14:06 CDT by MINH POWELL [id number]
[2025-01-20 14:20] LABS: Troponin(5th) Baseline 26 ng/L (0-10)
[2025-01-20] MEDS: dexamethasone 4 mg/mL INJ 6 MG IVP (15:08)
[2025-01-20] MEDS: cefTRIAXone 1,000 mg SDV 1000 MG IVP (15:09)
--- NOTE | 2025-01-20 15:15 | ECG_ITS ---
[facility] Date: 2025-01-20 Pat Name: Elena Salinas Department: Room: 270 Gender: Female Developmental Therapist: : 1950 Requested By: Natalie Munson Order Number: [id number] Sendy MD: MINH POWELL Measurements Intervals [place] Rate: 59 P: 17 [place]: 186 QRS: -16 QRSD: 94 T: 26 QT: 421 QTc: 420 Interpretive Statements SINUS BRADYCARDIA VOLTAGE CRITERIA FOR LVH [MEETS CRITERIA IN ONE OF: R(aVL), S(V1), R(V5), R(V5/V6)+S(V1)] Compared to ECG 01/20/2025 13:23:12 Sinus rhythm no longer present Electronically Signed On 01-20-2025 22:19:43 CDT by MINH POWELL [id number] [id number]
[2025-01-20 16:56] LABS: Glucose Point of Care 300 mg/dL (70-110)
[2025-01-20 17:01] LABS: Troponin 5 2HR 26.58 ng/L (0-10); Troponin 5 2HR Delta 0.58 ABS# (0-10)
[2025-01-20] MEDS: remdesivir 100 MG in sodium chloride 0.9% (100 ml) 80 ML IV (17:50)
--- NOTE | 2025-01-20 19:15 | ECG_ITS ---
[facility] Date: 2025-01-21 Pat Name: Elena Salinas Department: Room: 270 Gender: Female Seafood Technology Specialist: : 1950 Requested By: Natalie Munson Order Number: [id number] Reading MD: MINH POWELL Measurements Intervals [place] Rate: 59 P: 50 [place]: 161 QRS: -21 QRSD: 93 T: 30 QT: 431 QTc: 429 Interpretive Statements SINUS BRADYCARDIA BORDERLINE LEFT AXIS DEVIATION [QRS AXIS < -20] VOLTAGE CRITERIA FOR LVH [MEETS CRITERIA IN ONE OF: R(aVL), S(V1), R(V5), R(V5/V6)+S(V1)] Compared to ECG 01/20/2025 14:46:30 No significant changes Electronically Signed On 01-27-2025 18:28:14 CDT by MINH POWELL [id number]
[2025-01-20 20:08] LABS: Troponin 5 6HR 20.86 ng/L (0-10); Troponin 5 6HR Delta -5.14 ng/L (0-12)
[2025-01-20 20:32] LABS: Glucose Point of Care 448 mg/dL (70-110)
[2025-01-21] VITALS (13 sets, daily range): BP systolic 170–196; BP diastolic 76–96; PULSE 63–87; RESP 18–20; TEMP 36.4–36.9; O2SAT 90–94
[2025-01-21] MEDS: oxyCODONE-APAP 10-325 mg Tablet 1 TAB PO ×2 (00:06→11:43)
[2025-01-21] MEDS: ipratropium-albuterol 3 mL Neb INHALATION ×2 (02:39→08:49)
[2025-01-21] MEDS: oxyCODONE IR 30 mg Tablet 15 MG PO (03:12)
[2025-01-21 05:33] LABS: Basophils % 0.2 %; Eosinophils # 0.1 10^3/uL (0.0-0.8); Eosinophils % 0.7 %; Lymphocytes # 1.2 10^3/uL (0.8-4.8); Lymphocytes % 13.6 %; Mean Corpuscular HGB Conc 31.9 g/dL (30-55); Mean Corpuscular Hemoglobin 29.5 pg (27-33); Mean Corpuscular Volume 92.3 fl (85-98); Monocytes # 0.7 10^3/uL (0.2-0.9); Monocytes % 7.6 %; Neutrophils # 6.61 10^3/uL (1.8-7.7); Neutrophils % 77.2 %; Nucleated Red Blood Cells % 0 %; Platelet Count 253 10^3/cmm (157-399); Red Blood Count 4.55 10^6/uL (3.85-5.65); Red Cell Distribution Width 14.1 % (12.1-15.1); White Blood Count 8.56 10^3/uL (3.29-11.43)
[2025-01-21 05:53] LABS: Anion Gap 18.6 (5-19); Blood Urea Nitrogen 31 mg/dL (8-23); Carbon Dioxide 26 mmol/L (22-29); Chloride 96 mmol/L (98-107); Creatinine Clr Calc Pharmacy 71.8056; Glucose 262 mg/dL (65-115); Osmolality Calculated 298 mOsm/kg (285-295); Potassium 4.6 mmol/L (3.5-5.1); Sodium 136 mmol/L (136-145)
[2025-01-21 06:33] LABS: Glucose Point of Care 326 mg/dL (70-110)
[2025-01-21] MEDS: budesonide 0.5 mg/2 mL Neb INHALATION (08:49)
[2025-01-21] MEDS: insulin lispro 100 unit/1 mL SUBCUT ×2 (09:03→11:42)
[2025-01-21] MEDS: pantoprazole DR 40 mg Tablet PO (09:05)
[2025-01-21] MEDS: gabapentin 400 mg Capsule 800 MG PO (09:05)
[2025-01-21] MEDS: bumetanide 1 mg Tablet PO (09:05)
[2025-01-21] MEDS: fenofibrate 145 mg Tablet PO (09:05)
[2025-01-21] MEDS: rivaroxaban 10 mg Tablet PO (09:05)
[2025-01-21] MEDS: hyDRALAzine 50 mg Tablet PO (09:05)
[2025-01-21] MEDS: amlodipine 5 mg Tablet PO (09:05)
[2025-01-21] MEDS: metoprolol tartrate 50 mg Tablet 25 MG PO (09:06)
[2025-01-21] MEDS: atorvastatin 40 mg Tablet 20 MG PO (09:06)
[2025-01-21 11:26] LABS: Glucose Point of Care 321 mg/dL (70-110)
--- NOTE | 2025-01-21 11:41 | P.DS_ITS ---
Discharge Providers Date of Admission: 01/18/25 14:43 Date of Discharge: January 21, 2025 Attending Provider at Admission: Cara Soto MD Attending Provider at Discharge: Gabriel Michaud MD Primary Care Provider: DOMINICK Vizcarra Diagnoses at Discharge Discharge Diagnosis (1) COVID-19: Status: Acute (2) Essential (primary) hypertension: Status: Acute (3) Atrial fibrillation: Status: Acute Qualifiers: Atrial fibrillation type: unspecified Qualified Code(s): I48.91 - Unspecified atrial fibrillation (4) Chest pain: Status: Acute Reason for Visit Reason for Visit: chest pain; sob Hospital Course Hospital Course Elena Salinas is a 74-year-old female with multiple comorbidities who presented with shortness blast and pleurisy in the setting of recent diagnosis of pneumonia, found to have COVID-19 infection, uncontrolled blood pressure, and pleurisy. She is found to require supplemental oxygen support. COVID-19 infection was treated with remdesivir, steroids, and breathing treatments. Respiratory symptoms did improve. She is found to have uncontrolled blood pressures for which antihypertensives were adjusted. She is to continue monitoring blood pressure at home after discharge. Recommend blood pressure log with PCP follow-up. Patient discharging to home in stable condition. She will follow-up with her outpatient provider within 1 week for ongoing care. Physical Exam Narrative: General: Patient is awake. Appears fatigued but pleasant. Cough is present throughout exam. Head: Normocephalic. Atraumatic. EOM intact. Neck: No JVD. Cardiovascular: RRR. No gallops. No murmurs. No peripheral edema. Lungs: Breath sounds are diminished bilateral bases. Cough present. On supplemental support. No respiratory distress. No crackles or rales. Skin: No jaundice. No rashes. Abdomen: Normal bowel sounds, abdomen soft and nontender. Genito Urinary: Genital exam not performed since complaints not related. Rectal: Rectal exam not performed since no symptoms indicated blood loss. Extremities: No cyanosis or clubbing. Musculoskeletal: No swollen or erythematous joints. Neurological: Moves all 4 extremities. No myoclonus. Discharge Data Studies Completed and Pending Completed Studies During Hospitalization Category Date Time Status XR chest 1V portable [id number] Stat Exams 01/18/25 07:22 Completed Pending at discharge Category Date Time Status Blood Culture Stat Lab 01/18/25 08:11 Results Radiology Impressions Chest X-Ray 01/18/25 07:22 IMPRESSION: Stable fvfjflul-ht-mriwik elevation of the right hemidiaphragm with development of a linear right basilar consolidation which may reflect pneumonia versus atelectasis Laboratory Results WBC 8.56 10^3/uL (3.29-11.43) 01/21/25 04:48 RBC 4.55 10^6/uL (3.85-5.65) 01/21/25 04:48 Hgb 13.40 g/dL (11.27-16.99) 01/21/25 04:48 Hct 42.0 % (36-47) 01/21/25 04:48 MCV 92.3 fl (85-98) 01/21/25 04:48 MCH 29.5 pg (27-33) 01/21/25 04:48 MCHC 31.9 g/dL (30-55) 01/21/25 04:48 RDW 14.1 % (12.1-15.1) 01/21/25 04:48 Plt Count 253 10^3/cmm (157-399) 01/21/25 04:48 MPV 11.0 fL (7.4-10.4) H 01/21/25 04:48 Neut % (Auto) 77.2 % 01/21/25 04:48 Lymph % (Auto) 13.6 % 01/21/25 04:48 Stewart % (Auto) 7.6 % 01/21/25 04:48 Eos % (Auto) 0.7 % 01/21/25 04:48 Baso % (Auto) 0.2 % 01/21/25 04:48 Neut # (Auto) 6.61 10^3/uL (1.8-7.7) 01/21/25 04:48 Lymph # (Auto) 1.2 10^3/uL (0.8-4.8) 01/21/25 04:48 Stewart # (Auto) 0.7 10^3/uL (0.2-0.9) 01/21/25 04:48 Eos # (Auto) 0.1 10^3/uL (0.0-0.8) 01/21/25 04:48 Baso # (Auto) 0.0 10^3/uL (0.0-0.1) 01/21/25 04:48 Nucleated RBC % (auto) 0 % 01/21/25 04:48 Nucleated RBCs # 0.0 /100WBC 01/21/25 04:48 Specimen Type Arterial 01/18/25 07:42 Sample Site Brachial, left 01/18/25 07:42 ABG pH 7.40 (7.35-7.45) 01/18/25 07:42 ABG pCO2 43.8 mmHg (35-45) 01/18/25 07:42 ABG pO2 75.4 mmHg (80.0-100.0) L 01/18/25 07:42 ABG PO2/FiO2 Ratio 269 01/18/25 07:42 ABG HCO3 26.9 mmol/L (22-26) H 01/18/25 07:42 ABG O2 Saturation 95.9 01/18/25 07:42 ABG Base Excess 1.6 mmol/L (-2.0-2.0) 01/18/25 07:42 Reji Test N/a 01/18/25 07:42 A-a O2 Gradient 9.2 mmHg (5-10) 01/18/25 07:42 Hematocrit 37.5 % (37-47) 01/18/25 07:42 Hgb O2 Saturation 94.3 % (95-100) L 01/18/25 07:42 Carboxyhemoglobin 1.1 %THgb (0.4-20.1) 01/18/25 07:42 Methemoglobin 0.5 % (0.4-1.5) 01/18/25 07:42 Total Hemoglobin 12.2 g/dL (12-16) 01/18/25 07:42 Sodium 138.0 mmol/L (131-143) 01/18/25 07:42 Potassium 4.0 mmol/L (3.5-5.0) 01/18/25 07:42 Glucose 149.0 mg/dL (70-115) H 01/18/25 07:42 Ionized Calcium 1.2 mmol/L (1.1-1.4) 01/18/25 07:42 O2 Delivery Device Nc 01/18/25 07:42 O2 Liters/Min 2.0 % 01/18/25 07:42 FiO2 28.0 % 01/18/25 07:42 Associate Consulting Engineer ID Amh 01/18/25 07:42 Sodium 136 mmol/L (136-145) 01/21/25 04:48 Potassium 4.6 mmol/L (3.5-5.1) 01/21/25 04:48 Chloride 96 mmol/L (98-107) L 01/21/25 04:48 Carbon Dioxide 26 mmol/L (22-29) 01/21/25 04:48 Anion Gap 18.6 (5-19) 01/21/25 04:48 BUN 31 mg/dL (8-23) H 01/21/25 04:48 Creatinine 0.8 mg/dL (0.5-0.9) 01/21/25 04:48 GFR Calculation Not Reportable 01/21/25 04:48 Glucose 262 mg/dL (65-115) H 01/21/25 04:48 POC Glucose 321 mg/dL (70-110) H 01/21/25 10:55 Calculated Osmolality 298 mOsm/kg (285-295) H 01/21/25 04:48 Lactic Acid 1.8 mmol/L (0.5-2.2) 01/18/25 07:44 Calcium 9.0 mg/dL (8.5-10.5) 01/21/25 04:48 Total Bilirubin 0.2 mg/dL (0.15-1.2) 01/20/25 02:26 AST 19 U/L (0-32) 01/20/25 02:26 ALT 26 U/L (0-33) 01/20/25 02:26 Alkaline Phosphatase 89 U/L (35-105) 01/20/25 02:26 Troponin T Baseline 26 ng/L (0-10) H 01/20/25 13:55 Troponin T 120 Minute 26.58 ng/L (0-10) H 01/20/25 16:05 Delta Troponin T 0.58 ABS# (0-10) 01/20/25 16:05 Troponin T Hi Sens 6Hr 20.86 ng/L (0-10) H 01/20/25 19:31 Troponin T Hi Sens 6Hr Delta -5.14 ng/L (0-12) L 01/20/25 19:31 C-Reactive Protein 55.4 mg/L (0.0-4.9) H 01/20/25 02:26 NT-Pro-B Natriuret Pep 1328 pg/mL (0-125) H 01/18/25 07:44 Total Protein 7.1 g/dL (6.6-8.7) 01/20/25 02:26 Albumin 3.8 g/dL (3.5-5.2) 01/20/25 02:26 Globulin 3.3 g/dL (1.3-4.6) 01/20/25 02:26 Procalcitonin 0.24 ng/mL (0-0.5) 01/18/25 07:44 Influenza A (PCR) Negative (Negative) 01/18/25 08:06 Influenza Type B (PCR) Negative (Negative) 01/18/25 08:06 RSV (PCR) Negative (Negative) 01/18/25 08:06 SARS-CoV-2 (PCR) Positive (Negative) A 01/18/25 08:06 Vitals Last Vital Signs Temp 98.4 F 01/21/25 11:28 Pulse 68 01/21/25 11:28 Resp 18 01/21/25 11:28 BP 176/87 01/21/25 11:28 Pulse Ox 93 01/21/25 11:28 O2 Del Method Room Air 01/21/25 11:28 O2 Flow Rate 2 01/20/25 21:20 Discharge Plan Discharge Patient Disposition: Home Condition: Stable Prescriptions: New cefdinir 300 mg capsule 300 mg PO Q12H 5 Days Qty: 10 0RF dexamethasone 6 mg tablet 6 mg PO DAILY 7 Days Qty: 7 0RF hydralazine 100 mg tablet 100 mg PO TID 30 Days Qty: 90 0RF benzonatate 100 mg Capsule 100 mg PO TID PRN (Reason: Cough) 10 Days Qty: 30 0RF bumetanide 1 mg Tablet 1 mg PO DAILY 30 Days Qty: 30 0RF Continued insulin degludec [Tresiba FlexTouch U-100] 100 unit/mL (3 mL) insulin pen 20 unit SUBCUT QAM Qty: 15 5RF (DME) BD Luer-Beth Syringe 3 mL 25 gauge x 1 syringe See Rx Instructions .ROUTE .COMPLEX Qty: 1 5RF Dose Instruction: USE ONE SYRINGE MONTHLY TO INJECT B12 Rx Instructions: USE ONE SYRINGE MONTHLY TO INJECT B12 (DME) glucometer testing kit See Rx Instructions .Route .MEDSUPPLY Qty: 1 0RF Rx Instructions: Glucometer testing kit, check blood sugars 3 times daily -Lancets #100, strips #100 (DME) glucometer testing kit See Rx Instructions .Route .MEDSUPPLY Qty: 1 0RF Rx Instructions: Glucometer testing kit, check blood sugars 3 times daily, after meals based on sliding scale provided Lancets #100 Strips #100 oxycodone 15 mg tablet 15 mg PO Q4H PRN (Reason: Pain) levalbuterol tartrate 45 mcg/actuation HFA aerosol inhaler 2 puff INHALATION Q6H PRN (Reason: Shortness Of Breath) ondansetron 8 mg tablet,disintegrating 8 mg PO Q6H PRN (Reason: Nausea And Vomiting) oxycodone-acetaminophen 7.5-325 mg tablet 1 tab PO Q8H PRN (Reason: Pain) glipizide 10 mg tablet extended release 24hr 10 mg PO DAILY amlodipine 5 mg tablet 5 mg PO DAILY simvastatin 40 mg tablet 40 mg PO DAILY famotidine 20 mg tablet 20 mg PO BID magnesium oxide 400 mg (241.3 mg magnesium) tablet 400 mg PO DAILY gabapentin 800 mg tablet 800 mg PO TID cyanocobalamin (vitamin B-12) 1,000 mcg/mL solution 1,000 mcg SUBCUT .Q30D metformin 1,000 mg tablet 1,000 mg PO BID metoprolol tartrate 50 mg tablet 50 mg PO BID ergocalciferol (vitamin D2) 1,250 mcg (50,000 unit) capsule 50,000 unit PO Q7D Rx Instructions: Monday fenofibrate 160 mg tablet 160 mg PO DAILY Xarelto 10 mg tablet 10 mg PO DAILY Discontinued hydralazine 50 mg tablet 50 mg PO TID Qty: 90 0RF levofloxacin [Levaquin] 500 mg Tablet 500 mg PO DAILY Discharge Orders: Discharge Order (Routine); Ordered 01/21/25 Ordered By: Gabriel Michaud Referrals: Sheri Black FNP [Primary Care Provider] - 4-7 days (We have notified your physician's clinic of the need for a follow-up appointment to be scheduled. If you have not heard from them within the next 2 business days, please call them directly. ) Discharge Diet: Advance as tolerated and Usual diet Discharge Activity: Resume usual activity and Increase activity as tolerated Patient Instructions: Opioid Safety Activity Restrictions/Additional Instructions: Take medications as prescribed. Follow-up with primary within 1 week. Keep home blood pressure log. Bring blood pressure log to your PCP appointment. Discharge Attestations Time Spent in Discharge Care*: greater than 30 min Quality Metrics Clinical Quality Measures [ No reported AMI, CVA or VTE this stay] Coding Level of Care Code Acute Code for Chg Fwd Diagnoses COVID-19 U07.1 Essential (primary) hypertension I10 Atrial fibrillation, unspecified type I48.91 Atrial fibrillation type: unspecified Chest pain R07.9
== END 2025-01-21 13:50 | disposition home or self-care (01) | DRG 178 ==
LOC: ER 10:42 → MEDSURG 16:49
PROVIDERS: Internal Medicine; Admitting Provider Student in an Organized Health Care Education/Training Program; Emergency Provider Family Medicine; PCP Nurse Practitioner Family; Visit Provider Internal Medicine
DX: U07.1 COVID-19 (principal); J96.10 Chronic respiratory failure, unspecified whether with hypoxia or hypercapnia; Z68.41 Body mass index [BMI] 40.0-44.9, adult; E11.9 Type 2 diabetes mellitus without complications; I48.91 Unspecified atrial fibrillation; K21.9 Gastro-esophageal reflux disease without esophagitis; E78.5 Hyperlipidemia, unspecified; E66.9 Obesity, unspecified; Z11.52 Encounter for screening for COVID-19; I10 Essential (primary) hypertension; Z79.899 Other long term (current) drug therapy; Z79.84 Long term (current) use of oral hypoglycemic drugs; Z79.01 Long term (current) use of anticoagulants; Z87.01 Personal history of pneumonia (recurrent)
CPT/HCPCS: 36415; 36416; 36600; 71045; 80048; 80051; 80053; 82330; 82805; 82962; 83605; 83880; 84145; 84484; 85025; 86140; 87040; 87637; 93005; 94640; 94760; 96372; 99285; J0248; J0696; J1100; J1815; J7626; J9999

== ENCOUNTER 2025-02-04 14:28 | Inpatient (IN) | payer MEDICARE, MEDICAID, SELFPAY ==
[2025-02-04] VITALS (7 sets, daily range): BP systolic 161–183; BP diastolic 82–103; PULSE 111–124; RESP 18–23; TEMP 36.9–38.1; O2SAT 90–92; BMI 40.2
--- NOTE | 2025-02-04 14:37 | CTR_ITS ---
PROCEDURE INFORMATION: Exam: CTA Chest With Contrast Exam date and time: 02/04/2025 4:15 PM Age: 74 years old Clinical indication: Other: SOB; Shortness of breath TECHNIQUE: Imaging protocol: Computed tomographic angiography of the chest with contrast. Exam focused on the arteries. 3D rendering (Not supervised by radiologist): MIP and/or 3D reconstructed images were created by the technologist. Radiation optimization: All CT scans at this facility use at least one of these dose optimization techniques: automated exposure control; mA and/or kV adjustment per patient size (includes targeted exams where dose is matched to clinical indication); or iterative reconstruction. Contrast material: OMNIPAQUE 350; Contrast volume: 100 ml; Contrast route: INTRAVENOUS (IV); COMPARISON: [facility] [id number] 12/26/2024 11:42 PM RADIATION DOSE METRICS: Total DLP (mGy-cm): 1584.7 FINDINGS: Pulmonary arteries: No pulmonary emboli. Aorta: Unremarkable. No aortic aneurysm. No aortic dissection. Lungs: No focal consolidations. Pleural spaces: Unremarkable. No pneumothorax. No pleural effusion. Heart: Unremarkable. No cardiomegaly. No pericardial effusion. Lymph nodes: Unremarkable. No enlarged lymph nodes. Diaphragm: Abnormal elevation of the right hemidiaphragm up to the level of the right hilum. Bones/joints: Unremarkable. No acute fracture. Soft tissues: Unremarkable. PROCEDURE INFORMATION: Exam: CT Abdomen And Pelvis With Contrast Exam date and time: 02/04/2025 4:15 PM Age: 74 years old Clinical indication: Other: SOB; Shortness of breath TECHNIQUE: Imaging protocol: Computed tomography of the abdomen and pelvis with contrast. Radiation optimization: All CT scans at this facility use at least one of these dose optimization techniques: automated exposure control; mA and/or kV adjustment per patient size (includes targeted exams where dose is matched to clinical indication); or iterative reconstruction. Contrast material: OMNIPAQUE 350; Contrast volume: 100 ml; Contrast route: INTRAVENOUS (IV); COMPARISON: [facility] [id number] 12/26/2024 11:42 PM RADIATION DOSE METRICS: Total DLP (mGy-cm): 1584.7 FINDINGS: Liver: The liver is diffusely low in attenuation consistent with hepatic steatosis. Gallbladder and biliary ducts: Multiple tiny stones in the gallbladder. Pancreas: Normal. No ductal dilation. Spleen: Normal. No splenomegaly. Adrenal glands: Normal. No mass. Kidneys and ureters: Normal. No hydronephrosis. Stomach and bowel: Unremarkable. No obstruction. No mucosal thickening. Appendix: No evidence of appendicitis. Intraperitoneal space: Unremarkable. No free air. No significant fluid collection. Vasculature: Unremarkable. No abdominal aortic aneurysm. Lymph nodes: Unremarkable. No enlarged lymph nodes. Urinary bladder: Unremarkable as visualized. Reproductive: Unremarkable as visualized. Bones/joints: Severe degenerative disc disease throughout the lumbar spine. Soft tissues: Unremarkable. CT/CT angio chest w abd pel w con IMPRESSION: 1. No pulmonary emboli. 2. No focal consolidations. IMPRESSION: 1. No bowel obstruction or inflammatory process associated with the bowel. 2. No free air or significant free fluid in the abdomen or pelvis. 3. No evidence of appendicitis.
--- NOTE | 2025-02-04 14:37 | XRR_ITS ---
PROCEDURE INFORMATION: Exam: XR Chest Exam date and time: 02/04/2025 3:41 PM Age: 74 years old Clinical indication: Shortness of breath; Additional info: SOB TECHNIQUE: Imaging protocol: Radiologic exam of the chest. Views: 1 view. COMPARISON: CR (CHEST, ) 01/18/2025 7:26 AM FINDINGS: Lungs: Abnormal elevation of the right hemidiaphragm up to the level of the right hilum, similar to the prior examination. No new focal consolidation. Pleural spaces: Unremarkable. No pleural effusion. No pneumothorax. Heart/Mediastinum: Unremarkable. No cardiomegaly. Bones/joints: Severe narrowing of the right acromiohumeral interval and left glenohumeral interval. XR/XR chest 1V portable [id number] IMPRESSION: 1. Abnormal elevation of the right hemidiaphragm up to the level of the right hilum, similar to the prior examination. 2. No new focal consolidation.
--- NOTE | 2025-02-04 14:37 | CTR_ITS ---
PROCEDURE INFORMATION: Exam: CT Head Without Contrast Exam date and time: 02/04/2025 4:15 PM Age: 74 years old Clinical indication: Altered mental status/memory loss; Confusion or disorientation; Additional info: AMS TECHNIQUE: Imaging protocol: Computed tomography of the head without contrast. Radiation optimization: All CT scans at this facility use at least one of these dose optimization techniques: automated exposure control; mA and/or kV adjustment per patient size (includes targeted exams where dose is matched to clinical indication); or iterative reconstruction. COMPARISON: CT head wo con* [id number] 02/07/2024 5:38 PM RADIATION DOSE METRICS: Total DLP (mGy-cm): 1126.6 FINDINGS: Brain: Subcortical and periventricular white matter changes consistent with small-vessel ischemic disease in the appropriate clinical setting. Small-vessel ischemic disease. No acute intracranial abnormality. Cerebral ventricles: No ventriculomegaly. Paranasal sinuses: Visualized sinuses are unremarkable. No fluid levels. Mastoid air cells: Visualized mastoid air cells are well aerated. Bones: Unremarkable. No acute fracture. Soft tissues: Unremarkable. CT/CT head wo con* [id number] IMPRESSION: 1. No acute intracranial abnormality. 2. Small-vessel ischemic disease.
--- NOTE | 2025-02-04 14:39 | ECG_ITS ---
[facility] Test Date: 2025-02-04 Pat Name: Elena Salinas Department: Room: Gender: Female Ecological Risk Assessor: : 1950 Requested By: Alma Delia Bartlett Order Number: [id number] Sendy MD: Candis Dotson M.D. Measurements Intervals [place] Rate: 113 P: 33 [place]: 188 QRS: -27 QRSD: 90 T: 62 QT: 308 QTc: 424 Interpretive Statements SINUS TACHYCARDIA LEFT VENTRICULAR HYPERTROPHY AND ST-T CHANGE [VOLTAGE CRITERIA PLUS ST/T ABNORMALITY] POSSIBLE ANTERIOR MYOCARDIAL INFARCTION , OF INDETERMINATE AGE [30 ms Q WAVE IN V3/V4, OR R < 0.2 mV IN V4] Compared to ECG 01/21/2025 02:43:46 ST (T wave) deviation now present Myocardial infarct finding now present Sinus bradycardia no longer present Electronically Signed On 02-05-2025 12:33:18 CDT by Candis Dotson M.D. [id number] [id number]
[2025-02-04 14:47] LABS: ABG PCO2 36.3 mmHg (35-45); ABG PH Result 7.38 (7.35-7.45); Arterial Blood Gas Hematocrit 43.4 % (37-47); Blood Gas Allen Test Pos; Blood Gas Operator Identificat WALCI; Blood Gas Sample Site Radial, left; Blood Gas Sample Type Arterial; Carboxyhemoglobin 1.2 %THgb (0.4-20.1); HCO3 ABG 21.5 mmol/L (22-26); HGB O2 Sat 89.3 % (95-100); Methemoglobin 1.1 % (0.4-1.5); Oxygen Device ROOM AIR; PO2 ABG 56.2 mmHg (80.0-100.0); PO2 FiO2 Ratio Arterial Blood 267; Total Hemoglobin 14.2 g/dL (12-16)
[2025-02-04 14:57] LABS: Glucose Point of Care 295 mg/dL (70-110)
[2025-02-04 15:00] LABS: Bilirubin Urine Negative (Negative); Blood Urine Negative (Negative); Glucose Urine UA 3+ (Normal); Ketones Urine 1+ (Negative); Leukocyte Esterase Urine Negative (Negative); Nitrate Urine Negative (Negative); Protein Urine 1+ (Negative); Specific Gravity, Urine 1.029 (1.005-1.030); Urine Appearance Clear (CLEAR); Urine Color Yellow (Yellow)
[2025-02-04 15:02] LABS: Add Urine Microscopic? YES; Bacteria Urine None Seen /hpf; Hyaline Casts Urine 1.65 /lpf; RBC Urine 0-2 /hpf (0-2); Squamous Epithelial Cell Urine 0-5 /hpf (0-5); WBC Urine 0-5 /hpf (0-5)
--- NOTE | 2025-02-04 15:14 | W.ED.SOB ---
HPI - SOB/Dyspnea General: Chief Complaint: Shortness of Breath/Dyspnea Stated Complaint: Abd Pain Time Seen by Provider: 02/04/25 14:32 Source: EMS Mode of arrival: EMS Limitations: altered mental status History of Present Illness: HPI Narrative: 74-year-old female is here with EMS patient has been complaining recently of abdominal pain along with shortness of breath she had been admitted roughly a week ago for respiratory failure. Per EMS patient woke up this morning quite confused here she is confused she is only able to tell me her name she is requiring oxygen as well. She is afebrile here. Related Data Home Medications ?Medication ?Instructions ?Recorded ?Confirmed levalbuterol tartrate 45 2 puff inhalation Q6H PRN 07/01/22 02/04/25 mcg/actuation aerosol inhaler Shortness Of Breath oxycodone 15 mg tablet 15 mg PO Q4H PRN Pain 07/01/22 02/04/25 ondansetron 8 mg disintegrating 8 mg PO Q6H PRN Nausea And Vomiting 12/27/24 02/04/25 tablet oxycodone-acetaminophen 7.5 mg-325 1 tab PO Q8H PRN Pain 12/27/24 02/04/25 mg tablet cyanocobalamin (vitamin B-12) 1,000 mcg SUBCUT .Q30D 01/18/25 02/04/25 1,000 mcg/mL injection solution ergocalciferol (vitamin D2) 1,250 50,000 unit PO Q7D 01/18/25 02/04/25 mcg (50,000 unit) capsule famotidine 20 mg tablet 20 mg PO BID 01/18/25 02/04/25 gabapentin 800 mg tablet 800 mg PO TID 01/18/25 02/04/25 glipizide 10 mg tablet, extended 10 mg PO DAILY 01/18/25 02/04/25 release 24 hr magnesium oxide 400 mg (241.3 mg 400 mg PO DAILY 01/18/25 02/04/25 magnesium) tablet metformin 1,000 mg tablet 1,000 mg PO BID 01/18/25 02/04/25 metoprolol tartrate 50 mg tablet 50 mg PO BID 01/18/25 02/04/25 rivaroxaban 10 mg tablet (Xarelto) 10 mg PO DAILY 01/18/25 02/04/25 simvastatin 40 mg tablet 40 mg PO DAILY 01/18/25 02/04/25 lisinopril 40 mg tablet 40 mg PO BID 02/04/25 02/04/25 Previous Rx's ?Medication ?Instructions ?Recorded glucometer testing kit #1 ea 09/18/22 glucometer testing kit #1 ea 09/18/22 insulin degludec 100 unit/mL (3 20 unit (0.2 mL) SUBCUT QAM #15 mL 05/27/24 mL) subcutaneous pen (Tresiba FlexTouch U-100 insulin) syringe with needle 3 mL 25 gauge #1 ea 05/31/24 x 1 (BD Luer-Beth Syringe) bumetanide 1 mg tablet 1 mg PO DAILY 30 days #30 tabs 01/21/25 hydralazine 100 mg tablet 100 mg PO TID 30 days #90 tabs 01/21/25 amlodipine 10 mg tablet 10 mg PO DAILY #30 tabs 01/27/25 fenofibrate 160 mg tablet 160 mg PO DAILY #90 tabs 01/27/25 Allergies Allergy/AdvReac Type Severity Reaction Status Date / Time No Known Allergies Allergy Verified 01/03/25 09:53 Review of Systems General: Reports: ROS unobtainable due to mental status PFSH ED PFSH: Medical History Obesity Acute hypoxemic respiratory failure COVID-19 NOEMI (acute kidney injury) Type 2 diabetes mellitus B12 deficiency Vitamin D deficiency GERD (gastroesophageal reflux disease) Atrial fibrillation Cholecystitis Abnormal transaminases Cholelithiasis Acute encephalopathy Acute cystitis Wound of right foot Type 2 diabetes mellitus without complications Obesity, unspecified Chronic osteoarthritis Bunion of right foot Encounter for counseling for care management of patient with chronic conditions and complex health needs using nurse-based model Seasonal allergies Gastro-esophageal reflux disease without esophagitis Neuropathy Dyslipidemia Chronic back pain Essential (primary) hypertension Surgical History Hx of knee surgery (~10/2000) left Family History Mother Cancer colon Father Cancer pancreatic Family/Other CAD (coronary artery disease) Social History Smoking and tobacco/nicotine status: never used tobacco/nicotine Second hand smoke exposure: No Alcohol intake: never Substance/Drug Use: never Lives independently: Yes Household members: significant other Marital status: Life Partner Current occupational status: retired Current gender identity: Female Physical Exam Const: COMMON NORMALS: negative for patient oriented x3 GENERAL APPEARANCE: ill appearing HENMT: COMMON NORMALS: normocephalic and atraumatic HEAD & SCALP: normocephalic and atraumatic Eye: COMMON NORMALS: conjunctivae normal CONJUNCTIVA: Yes conjunctivae normal Neck/C-Spine: COMMON NORMALS: full ROM and supple Chest: COMMONS NORMALS: normal inspection of the chest Resp: COMMON NORMALS: No retractions and No use of accessory muscles AUSCULTATION: rales Cardio: COMMON NORMALS: regular rate, regular rhythm and No murmurs present (Cardio) RATE: regular rate RHYTHM: regular rhythm GI: COMMON NORMALS: Normal to inspection, nondistended, normoactive bowel sounds present, Soft to palpation, non-tender and no masses PALPATION: Yes Soft to palpation Extremity: COMMON NORMALS: full ROM NARRATIVE EXTREMITY EXAM: 2+ edema to LE Neuro: COMMON NORMALS: moves all extremities and no focal motor deficits; negative for patient oriented x3 Psych: COMMON NORMALS: Normal thought process present and cooperative; negative for mental status grossly normal THOUGHT PROCESS: Normal thought process present Skin: COMMON NORMALS: no rashes or lesions noted and no wounds GENERAL SKIN EXAM: no rashes or lesions noted Course Vital Signs: Vital signs: Vital Signs Temperature 100.5 F H 02/04/25 15:13 Pulse Rate 118 H 02/04/25 14:29 Respiratory Rate 23 H 02/04/25 14:29 Blood Pressure 177/88 02/04/25 14:29 Pulse Oximetry 92 02/04/25 14:29 Oxygen Delivery Me thod Room Air 02/04/25 14:29 MDM - SOB/Dyspnea Medical Decision Making Patient presents here with altered male status she also has a fever and elevated white count. Lactate is normal patient is now more alert she is answering my questions appropriately states has been having stomach aches she denies any headache imaging here was negative did not give her full sepsis bolus only gave her 2 L if she has had some leg swelling and her BNP was elevated that would do more harm did start antibiotics spoke to the hospitalist will admit. Medical Records I reviewed the patient's medical records. Lab Data I reviewed the patient's lab results. 02/04/25 15:09 02/04/25 15:09 Labs/Radiology: Radiology Impressions Chest X-Ray 02/04/25 14:37 IMPRESSION: 1. Abnormal elevation of the right hemidiaphragm up to the level of the right hilum, similar to the prior examination. 2. No new focal consolidation. Chest/Abdomen/Pelvis CT 02/04/25 14:37 IMPRESSION: 1. No pulmonary emboli. 2. No focal consolidations. IMPRESSION: 1. No bowel obstruction or inflammatory process associated with the bowel. 2. No free air or significant free fluid in the abdomen or pelvis. 3. No evidence of appendicitis. Head CT 02/04/25 14:37 IMPRESSION: 1. No acute intracranial abnormality. 2. Small-vessel ischemic disease. Laboratory Results WBC 18.18 10^3/uL (3.29-11.43) H 02/04/25 15:09 RBC 4.72 10^6/uL (3.85-5.65) 02/04/25 15:09 Hgb 14.00 g/dL (11.27-16.99) 02/04/25 15:09 Hct 44.0 % (36-47) 02/04/25 15:09 MCV 93.2 fl (85-98) 02/04/25 15:09 MCH 29.7 pg (27-33) 02/04/25 15:09 MCHC 31.8 g/dL (30-55) 02/04/25 15:09 RDW 13.9 % (12.1-15.1) 02/04/25 15:09 Plt Count 241 10^3/cmm (157-399) 02/04/25 15:09 MPV 10.5 fL (7.4-10.4) H 02/04/25 15:09 Neut % (Auto) 92.7 % 02/04/25 15:09 Lymph % (Auto) 1.5 % 02/04/25 15:09 [place] % (Auto) 4.5 % 02/04/25 15:09 Eos % (Auto) 0.3 % 02/04/25 15:09 Baso % (Auto) 0.2 % 02/04/25 15:09 Neut # (Auto) 16.85 10^3/uL (1.8-7.7) H 02/04/25 15:09 Lymph # (Auto) 0.3 10^3/uL (0.8-4.8) L 02/04/25 15:09 [place] # (Auto) 0.8 10^3/uL (0.2-0.9) 02/04/25 15:09 Eos # (Auto) 0.1 10^3/uL (0.0-0.8) 02/04/25 15:09 Baso # (Auto) 0.0 10^3/uL (0.0-0.1) 02/04/25 15:09 Nucleated RBC % (auto) 0 % 02/04/25 15:09 Nucleated RBCs # 0.0 /100WBC 02/04/25 15:09 PT 14.20 SECONDS (12.1-14.9) 02/04/25 15:09 INR 1.03 (0.8-1.2) 02/04/25 15:09 Specimen Type Arterial 02/04/25 14:36 Sample Site Radial, left 02/04/25 14:36 ABG pH 7.38 (7.35-7.45) 02/04/25 14:36 ABG pCO2 36.3 mmHg (35-45) 02/04/25 14:36 ABG pO2 56.2 mmHg (80.0-100.0) L 02/04/25 14:36 ABG PO2/FiO2 Ratio 267 02/04/25 14:36 ABG HCO3 21.5 mmol/L (22-26) L 02/04/25 14:36 ABG Base Excess -3.0 mmol/L (-2.0-2.0) L 02/04/25 14:36 Reji Test Pos 02/04/25 14:36 Hematocrit 43.4 % (37-47) 02/04/25 14:36 Hgb O2 Saturation 89.3 % (95-100) L 02/04/25 14:36 Carboxyhemoglobin 1.2 %THgb (0.4-20.1) 02/04/25 14:36 Methemoglobin 1.1 % (0.4-1.5) 02/04/25 14:36 Total Hemoglobin 14.2 g/dL (12-16) 02/04/25 14:36 O2 Delivery Device Room air 02/04/25 14:36 FiO2 21.0 % 02/04/25 14:36 Seconds Handler ID Marcie 02/04/25 14:36 Sodium 134 mmol/L (136-145) L 02/04/25 15:09 Potassium 4.6 mmol/L (3.5-5.1) 02/04/25 15:09 Chloride 101 mmol/L (98-107) 02/04/25 15:09 Carbon Dioxide 20 mmol/L (22-29) L 02/04/25 15:09 Anion Gap 17.6 (5-19) 02/04/25 15:09 BUN 22 mg/dL (8-23) 02/04/25 15:09 Creatinine 1.0 mg/dL (0.5-0.9) H 02/04/25 15:09 GFR Calculation Not Reportable 02/04/25 15:09 Glucose 302 mg/dL (65-115) H 02/04/25 15:09 POC Glucose 295 mg/dL (70-110) H 02/04/25 14:54 Calculated Osmolality 293 mOsm/kg (285-295) 02/04/25 15:09 Lactic Acid 1.5 mmol/L (0.5-2.2) 02/04/25 15:09 Calcium 9.1 mg/dL (8.5-10.5) 02/04/25 15:09 Total Bilirubin 0.5 mg/dL (0.15-1.2) 02/04/25 15:09 AST 21 U/L (0-32) 02/04/25 15:09 ALT 19 U/L (0-33) 02/04/25 15:09 Alkaline Phosphatase 47 U/L (35-105) 02/04/25 15:09 Troponin T Baseline 22 ng/L (0-10) H 02/04/25 15:09 NT-Pro-B Natriuret Pep 531 pg/mL (0-125) H 02/04/25 15:09 Total Protein 6.8 g/dL (6.6-8.7) 02/04/25 15:09 Albumin 4.2 g/dL (3.5-5.2) 02/04/25 15:09 Globulin 2.6 g/dL (1.3-4.6) 02/04/25 15:09 Lipase 19 U/L (13-60) 02/04/25 15:09 TSH 1.44 uIU/mL (0.27-4.20) 02/04/25 15:09 Urine Color Yellow (Yellow) 02/04/25 14:54 Urine Appearance Clear (CLEAR) 02/04/25 14:54 Urine pH 5.0 (5-7) 02/04/25 14:54 Ur Specific [place] 1.029 (1.005-1.030) 02/04/25 14:54 Urine Protein 1+ (Negative) A 02/04/25 14:54 Urine Glucose (UA) 3+ (Normal) H 02/04/25 14:54 Urine Ketones 1+ (Negative) H 02/04/25 14:54 Urine Blood Negative (Negative) 02/04/25 14:54 Urine Nitrate Negative (Negative) 02/04/25 14:54 Urine Bilirubin Negative (Negative) 02/04/25 14:54 Urine Urobilinogen 1.0 mg/dL (Negative) 02/04/25 14:54 Ur Leukocyte Esterase Negative (Negative) 02/04/25 14:54 Urine RBC 0-2 /hpf (0-2) 02/04/25 14:54 Urine WBC 0-5 /hpf (0-5) 02/04/25 14:54 Ur Squamous Epith Cells 0-5 /hpf (0-5) 02/04/25 14:54 Amorphous Sediment Not Reportable 02/04/25 14:54 Urine Bacteria None seen /hpf (NONE) 02/04/25 14:54 Hyaline Casts 1.65 /lpf 02/04/25 14:54 All radiology interpretation(s) finalized by discharge EKG Data EKG 1: I personally reviewed and interpreted this EKG as follows: EKG Interpretation Date: 02/04/25 EKG interpretation time: 14:43 Interpretation: sinus tach hr [address] elevation qrs 90 qtc 375 EKG 2: I personally reviewed and interpreted this EKG as follows: EKG Interpretation Date: 02/04/25 EKG interpretation time: 16:57 Interpretation: sinus tach hr [address] elevation qrs 84 qtc 378 Discharge Plan Discharge Patient Disposition: Admitted As Inpatient Clinical Impression: Sepsis, Abdominal pain, AMS (altered mental status) Condition: Stable Coding Level of Care Code ED Supervisor [employer] for Jorje Blackmon
[2025-02-04 15:22] LABS: Basophils % 0.2 %; Eosinophils # 0.1 10^3/uL (0.0-0.8); Eosinophils % 0.3 %; Lymphocytes # 0.3 10^3/uL (0.8-4.8); Lymphocytes % 1.5 %; Mean Corpuscular HGB Conc 31.8 g/dL (30-55); Mean Corpuscular Hemoglobin 29.7 pg (27-33); Mean Corpuscular Volume 93.2 fl (85-98); Mean Platelet Volume 10.5 fL (7.4-10.4); Monocytes # 0.8 10^3/uL (0.2-0.9); Monocytes % 4.5 %; Neutrophils # 16.85 10^3/uL (1.8-7.7); Neutrophils % 92.7 %; Nucleated Red Blood Cells % 0 %; Platelet Count 241 10^3/cmm (157-399); Red Blood Count 4.72 10^6/uL (3.85-5.65); Red Cell Distribution Width 13.9 % (12.1-15.1); White Blood Count 18.18 10^3/uL (3.29-11.43)
[2025-02-04 15:34] LABS: UA Slide Review UA Slide Review Perf
[2025-02-04] MEDS: sodium chloride 0.9% 1,000 ML 999 ML IV (15:35)
[2025-02-04] MEDS: acetaminophen 500 mg Tablet 1000 MG PO (15:35)
[2025-02-04 15:36] LABS: Add Urine Culture? No
--- NOTE | 2025-02-04 15:37 | PC.PHAR ---
pts' daughter states pt did take her morning medications but threw them up so documentation shows last taken yesterday. Pt just finished the following medications from 01/21/25: Cefdinir 300mg bid x5days, Dexamethasone 6mg daily x7days, and Benzonatate 100mg tid prn.
[2025-02-04 15:39] LABS: Lactic Sepsis W/Reflex 1.5 mmol/L (0.5-2.2)
[2025-02-04 15:40] LABS: INR 1.03 (0.8-1.2)
[2025-02-04 15:42] LABS: Troponin(5th) Baseline 22 ng/L (0-10)
[2025-02-04 15:53] LABS: Alanine Aminotransferase 19 U/L (0-33); Albumin Level 4.2 g/dL (3.5-5.2); Alkaline Phosphatase 47 U/L (35-105); Anion Gap 17.6 (5-19); Aspartate Amino Transferase 21 U/L (0-32); Blood Urea Nitrogen 22 mg/dL (8-23); Calcium 9.1 mg/dL (8.5-10.5); Carbon Dioxide 20 mmol/L (22-29); Chloride 101 mmol/L (98-107); Globulin 2.6 g/dL (1.3-4.6); Glucose 302 mg/dL (65-115); Lipase 19 U/L (13-60); NT Pro B Type Natriuretic Pept 531 pg/mL (0-125); Osmolality Calculated 293 mOsm/kg (285-295); Potassium 4.6 mmol/L (3.5-5.1); Sodium 134 mmol/L (136-145); Thyroid Stimulating Hormone 1.44 uIU/mL (0.27-4.20); Total Bilirubin 0.5 mg/dL (0.15-1.2); Total Protein 6.8 g/dL (6.6-8.7)
[2025-02-04] MEDS: piperacillin-tazobactam 3.375 GM in sodium chloride 0.9% (plus) 50 ML IV ×2 (16:23→21:58)
[2025-02-04] MEDS: iohexol 350 mg/mL 500 mL Btl (per mL) IV (16:32)
--- NOTE | 2025-02-04 16:57 | ECG_ITS ---
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 Measurements Intervals [place] Rate: 120 P: 66 CT: 183 QRS: -18 QRSD: 84 T: 78 QT: 307 QTc: 434 Interpretive Statements SINUS TACHYCARDIA NONSPECIFIC T-WAVE ABNORMALITY ABNORMAL RHYTHM ECG Compared to ECG 02/04/2025 14:43:53 T-wave abnormality now present Left ventricular hypertrophy no longer present ST (T wave) deviation no longer present Myocardial infarct finding no longer present Electronically Signed On 02-06-2025 22:27:51 CDT by Candis Dotson M.D. [email or web address]
[2025-02-04] MEDS: VANCOMYCIN ADD-Vantage 1,000 MG in 0.9% NaCl ADD-Vantage 250 ML 250 MG IV ×2 (17:30→20:46)
[2025-02-04 17:53] LABS: Troponin 5 2HR 23.72 ng/L (0-10); Troponin 5 2HR Delta 1.72 ABS# (0-10)
--- NOTE | 2025-02-04 18:12 | PM.HP ---
Providers/Chief Complaint Admitting Physician: Helen Fishman Primary Care Provider: DOMINICK Vizcarra Chief Complaint: Abd Pain History of Present Illness 74 delmer old with past medical history of vitamin B12 deficiency, proximal atrial fibrillation, type 2 diabetes, and hypertension presents with altered mental status. Patient was recently discharged on 01/21/2025 after a hospitalization for respiratory distress , COVID-19 infection treated with Remdesivir and Decadron, and hypertension. She was discharged on hydralazine 100 mg three times daily, omnicef 300 mg daily for five days, and Bumex 1 mg daily. Patient saw her family doctor on 01/27/2025 and at that time, her blood pressure was good and she did not require supplemental oxygen. She was also admitted in December for pneumonia. Patient was confused and not aware of exactly why she was in the ER. no family at bedside. She was complaining of abdominal soreness and back pain. Would follow commands however did not know if she was having any fever at home or any other new symptoms. In the ER, Patient had a fever of 100.5?F, heart rate of 118, blood pressure 177/88, and oxygen saturation 92% on room air. Labs showed a white blood cell count of 18, hemoglobin 14, hematocrit 44, platelet count 241, sodium 134, potassium 4.6, chloride 101, bicarbonate 20, BUN 22, creatinine 1.0, and glucose 302. Chest x-ray showed abnormal elevation of the right hemidiaphragm up to the level of the right hilum, similar to a prior exam. No consolidation was noted. CT of the chest, abdomen, and pelvis showed no pulmonary emboli,or any focal consolidation. There was no abdominal pathology, bowel obstruction, free air, or evidence of appendicitis. Head CT showed no evidence of intracranial abnormality. Patient was given vancomycin and zosyn emperically as she was ill appearing. Review of Systems General: Reports: ROS unobtainable due to mental status Medications/Allergies Home Medications ?Medication ?Instructions ?Recorded ?Confirmed ?Last Taken ?Type levalbuterol tartrate 45 2 puff inhalation Q6H PRN 07/01/22 02/04/25 Unknown History mcg/actuation aerosol inhaler Shortness Of Breath oxycodone 15 mg tablet 15 mg PO Q4H PRN Pain 07/01/22 02/04/25 01/17/25 History glucometer testing kit #1 ea 09/18/22 02/04/25 Unknown Rx glucometer testing kit #1 ea 09/18/22 02/04/25 Unknown Rx insulin degludec 100 unit/mL (3 20 unit (0.2 mL) SUBCUT QAM #15 mL 05/27/24 02/04/25 02/04/25 Rx mL) subcutaneous pen (Tresiba FlexTouch U-100 insulin) syringe with needle 3 mL 25 gauge #1 ea 05/31/24 02/04/25 Unknown Rx x 1 (BD Luer-Beth Syringe) ondansetron 8 mg disintegrating 8 mg PO Q6H PRN Nausea And Vomiting 12/27/24 02/04/25 Unknown History tablet oxycodone-acetaminophen 7.5 mg-325 1 tab PO Q8H PRN Pain 12/27/24 02/04/25 01/17/25 History mg tablet cyanocobalamin (vitamin B-12) 1,000 mcg SUBCUT .Q30D 01/18/25 02/04/25 12/30/24 History 1,000 mcg/mL injection solution ergocalciferol (vitamin D2) 1,250 50,000 unit PO Q7D 01/18/25 02/04/25 01/31/25 History mcg (50,000 unit) capsule famotidine 20 mg tablet 20 mg PO BID 01/18/25 02/04/25 02/03/25 History gabapentin 800 mg tablet 800 mg PO TID 01/18/25 02/04/25 02/03/25 History glipizide 10 mg tablet, extended 10 mg PO DAILY 01/18/25 02/04/25 02/03/25 History release 24 hr magnesium oxide 400 mg (241.3 mg 400 mg PO DAILY 01/18/25 02/04/25 02/03/25 History magnesium) tablet metformin 1,000 mg tablet 1,000 mg PO BID 01/18/25 02/04/25 02/03/25 History metoprolol tartrate 50 mg tablet 50 mg PO BID 01/18/25 02/04/25 02/03/25 History rivaroxaban 10 mg tablet (Xarelto) 10 mg PO DAILY 01/18/25 02/04/25 02/03/25 History simvastatin 40 mg tablet 40 mg PO DAILY 01/18/25 02/04/25 02/03/25 History bumetanide 1 mg tablet 1 mg PO DAILY 30 days #30 tabs 01/21/25 02/04/25 02/03/25 Rx hydralazine 100 mg tablet 100 mg PO TID 30 days #90 tabs 01/21/25 02/04/25 02/03/25 Rx amlodipine 10 mg tablet 10 mg PO DAILY #30 tabs 01/27/25 02/04/25 02/03/25 Rx fenofibrate 160 mg tablet 160 mg PO DAILY #90 tabs 01/27/25 02/04/25 02/03/25 Rx lisinopril 40 mg tablet 40 mg PO BID 02/04/25 02/04/25 02/03/25 History Allergies Allergy/AdvReac Type Severity Reaction Status Date / Time No Known Allergies Allergy Verified 01/03/25 09:53 PFSH Acute PFSH: Medical History Obesity Acute hypoxemic respiratory failure COVID-19 NOEMI (acute kidney injury) Type 2 diabetes mellitus B12 deficiency Vitamin D deficiency GERD (gastroesophageal reflux disease) Atrial fibrillation Cholecystitis Abnormal transaminases Cholelithiasis Acute encephalopathy Acute cystitis Wound of right foot Type 2 diabetes mellitus without complications Obesity, unspecified Chronic osteoarthritis Bunion of right foot Encounter for counseling for care management of patient with chronic conditions and complex health needs using nurse-based model Seasonal allergies Gastro-esophageal reflux disease without esophagitis Neuropathy Dyslipidemia Chronic back pain Essential (primary) hypertension Surgical History Hx of knee surgery (~10/2000) left Family History Mother Cancer colon Father Cancer pancreatic Family/Other CAD (coronary artery disease) Social History Smoking and tobacco/nicotine status: never used tobacco/nicotine Second hand smoke exposure: No Alcohol intake: never Substance/Drug Use: never Lives independently: Yes Household members: significant other Marital status: Life Partner Current occupational status: retired Current gender identity: Female Vitals/I&O/Wt Last Vital Signs Temp 100.5 F H 02/04/25 15:13 Pulse 118 H 02/04/25 14:29 Resp 23 H 02/04/25 14:29 BP 177/88 02/04/25 14:29 Pulse Ox 92 02/04/25 14:29 O2 Del Method Room Air 02/04/25 14:29 02/04/25 02/04/25 02/04/25 06:59 14:59 22:59 Intake Total 50 / 50 Balance 50 / 50 Weight last 48 hrs Weight 99.79 kg Physical Exam Narrative: General: Patient is awake. Appears fatigued, and confused Head: Normocephalic. Atraumatic. EOM intact. Neck: No JVD. Cardiovascular: RRR. No gallops. No murmurs. No peripheral edema. Lungs: Breath sounds are diminished bilateral bases. on RA Skin: No jaundice. No rashes. Abdomen: Normal bowel sounds, abdomen soft and nontender. Extremities: No cyanosis or clubbing. Musculoskeletal: No swollen or erythematous joints. Neurological: Moves all 4 extremities. No myoclonus. Data 02/04/25 15:09 02/04/25 15:09 Micro: Microbiology 02/04/25 15:31 Blood Culture - Preliminary Blood SPECIMEN COLLECTED 02/04/25 15:25 Blood Culture - Preliminary Blood SPECIMEN COLLECTED A&P Assessment and plan (1) AMS (altered mental status): (2) Sepsis: (3) Fever of unknown origin: Plan Fever of Unclear Source - Temperature of 100.5?F noted in the emergency department - White blood cell count elevated at 18K - Chest X-ray, CT Head, CT chest abd pelvis - no evidence of acute infection Plan: 1. Follow up on blood cultures sent in ER, ordered procalcitonin and CRP 2. Send urinalysis and urine culture to evaluate for urinary tract infection 3. Initiate broad-spectrum antibiotics empirically pending culture results. 4. May need to consider LP 5. Repeat CBC and BMP in am 6. Will discuss with infectious disease if worsening Acute Encephalopathy - Patient presents with confusion, only able to state her name. - Head CT - No acute abnormality - Differential Diagnosis: 1. Infection (recent COVID-19 infection, possible new infection) 2. Metabolic derangement (elevated glucose) 3. Medication effect - Plan: 1. Continuous neurological monitoring 2. Repeat metabolic panel, especially glucose 3. Consider neurology consultation if no improvement 4. Review and adjust medications as needed Hypertension - Uncontrolled - Blood pressure elevated at 177/88 on presentation in the setting of recent discharge on multiple antihypertensive - Patient's hypertension was previously difficult to control during recent hospitalization. Plan: 1. Continue current antihypertensive home regimen 2. Monitor blood pressure closely with vital signs every 4 hours. 3. Adjust antihypertensive medications as needed based on blood pressure trends. Diabetes Mellitus with Hyperglycemia - Glucose of 302 on presentation in a patient with known type 2 diabetes. Plan: 1.QACHS checks. 2.sliding scale insulin 3.Lantus at lower dose for now Recent COVID-19 Infection - Patient was recently discharged on 01/21/2025 after treatment for COVID-19 pneumonia. - S/p Remdesivir and Decadron (completed last monday) Plan: 1. Monitor closely for any signs or symptoms concerning for post-COVID complications such as worsening respiratory status, thromboembolism, or inflammatory syndromes. 2. Patient completed a course of Decadron for COVID-19 pneumonia on 01/28/2025. History of Atrial Fibrillation - Patient has a known history of paroxysmal atrial fibrillation but is not currently reporting any symptoms such as palpitations or chest pain. Plan: 1. Continue continuous telemetry 2. Continue home metoprolol 50 mg BID 3. Continue xarelto PDMP PDMP Reviewed: Not Reviewed Attestations Medical Necessity Statement*: Patient will require over 2 midnight stay for eval and treatment of above. Coding Level of Care Code Acute Code for Chg Fwd Diagnoses AMS (altered mental status) R41.82 Sepsis A41.9 Fever of unknown origin R50.9
[2025-02-04 18:53] LABS: Procalcitonin 0.34 ng/mL (0-0.5)
[2025-02-04 18:58] LABS: C Reactive Protein 32.7 mg/L (0.0-4.9)
[2025-02-04] MEDS: hyDRALAzine 50 mg Tablet 100 MG PO (19:40)
[2025-02-04] MEDS: sodium chloride 0.9% 1,000 ML 50 ML IV (19:41)
--- NOTE | 2025-02-04 19:48 | PHA.VACGOAL ---
Vancomycin Goal - Goal Vancomycin Goal:: 15-20 mg/L Vancomycin Indication:: Other (SEPSIS) - Therapy Current therapy:: Pip/Tazo Day of therpy:: Day [1]of [] . Actual body weight (kg): 99.79 kg - Data Labs: WBC 18.18 10^3/uL (3.29-11.43) H 02/04/25 15:09 RBC 4.72 10^6/uL (3.85-5.65) 02/04/25 15:09 Hgb 14.00 g/dL (11.27-16.99) 02/04/25 15:09 Hct 44.0 % (36-47) 02/04/25 15:09 MCV 93.2 fl (85-98) 02/04/25 15:09 MCH 29.7 pg (27-33) 02/04/25 15:09 MCHC 31.8 g/dL (30-55) 02/04/25 15:09 RDW 13.9 % (12.1-15.1) 02/04/25 15:09 Sodium 134 mmol/L (136-145) L 02/04/25 15:09 Potassium 4.6 mmol/L (3.5-5.1) 02/04/25 15:09 Chloride 101 mmol/L (98-107) 02/04/25 15:09 Carbon Dioxide 20 mmol/L (22-29) L 02/04/25 15:09 Anion Gap 17.6 (5-19) 02/04/25 15:09 BUN 22 mg/dL (8-23) 02/04/25 15:09 Creatinine 1.0 mg/dL (0.5-0.9) H 02/04/25 15:09 GFR Calculation Not Reportable 02/04/25 15:09 Treatment plan:: new consult Regimen:: New start vancomycin for sepsis. No prior history of vancomycin found. Patient received 1000 mg dose in ER. Additional dose of 1000 mg ordered for total load dose of 2000 mg. Maintenance dose of 1000 mg q12h started based on population based pharmacokinetic nomogram.
--- NOTE | 2025-02-04 20:39 | ECG_ITS ---
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 Measurements Intervals [place] Rate: 102 P: 31 FL: 203 QRS: -21 QRSD: 92 T: 64 QT: 344 QTc: 448 Interpretive Statements SINUS TACHYCARDIA VOLTAGE CRITERIA FOR LVH [MEETS CRITERIA IN ONE OF: R(aVL), S(V1), R(V5), R(V5/V6)+S(V1)] POSSIBLE ANTERIOR MYOCARDIAL INFARCTION , OF INDETERMINATE AGE [30 ms Q WAVE IN V3/V4, OR R < 0.2 mV IN V4] Compared to ECG 02/04/2025 16:57:07 Left ventricular hypertrophy now present Myocardial infarct finding now present T-wave abnormality no longer present Electronically Signed On 02-06-2025 22:27:14 CDT by Candis Dotson M.D. [email or web address] [id number]
[2025-02-04] MEDS: acetaminophen 325 mg Tablet 650 MG PO (20:46)
[2025-02-04 21:06] LABS: Glucose Point of Care 242 mg/dL (70-110)
[2025-02-04] MEDS: insulin glargine 100 units/1 mL 10 UNIT SUBCUT (21:57)
[2025-02-04] MEDS: ondansetron 2 mg/ML SDV 2 mL 4 MG IVP (21:57)
[2025-02-04] MEDS: oxyCODONE 5 mg IR Tab/Cap 15 MG PO (21:57)
[2025-02-04] MEDS: insulin lispro 100 unit/1 mL SUBCUT (21:57)
[2025-02-04 22:02] LABS: Troponin 5 6HR 25.91 ng/L (0-10); Troponin 5 6HR Delta 3.91 ng/L (0-12)
[2025-02-05] VITALS (12 sets, daily range): BP systolic 96–169; BP diastolic 63–102; PULSE 60–111; RESP 16–20; TEMP 37–37.6; O2SAT 90–95
[2025-02-05] MEDS: oxyCODONE 5 mg IR Tab/Cap 15 MG PO ×4 (04:10→21:43)
[2025-02-05 05:40] LABS: Basophils % 0.2 %; Eosinophils % 0.5 %; Hematocrit 36.6 % (36-47); Lymphocytes # 0.8 10^3/uL (0.8-4.8); Lymphocytes % 9.2 %; Mean Corpuscular Hemoglobin 29.1 pg (27-33); Mean Platelet Volume 10.1 fL (7.4-10.4); Monocytes % 11.4 %; Neutrophils % 78.3 %; Nucleated Red Blood Cells % 0 %; Platelet Count 220 10^3/cmm (157-399); Red Blood Count 4.02 10^6/uL (3.85-5.65); Red Cell Distribution Width 14.2 % (12.1-15.1); White Blood Count 8.56 10^3/uL (3.29-11.43)
[2025-02-05] MEDS: piperacillin-tazobactam 3.375 GM in sodium chloride 0.9% (plus) 50 ML IV ×3 (05:47→21:42)
[2025-02-05 06:03] LABS: Anion Gap 16.7 (5-19); Blood Urea Nitrogen 15 mg/dL (8-23); Calcium 8.2 mg/dL (8.5-10.5); Carbon Dioxide 21 mmol/L (22-29); Chloride 103 mmol/L (98-107); Glucose 149 mg/dL (65-115); Osmolality Calculated 288 mOsm/kg (285-295); Potassium 3.7 mmol/L (3.5-5.1); Sodium 137 mmol/L (136-145)
[2025-02-05 07:17] LABS: Glucose Point of Care 229 mg/dL (70-110)
[2025-02-05] MEDS: insulin lispro 100 unit/1 mL SUBCUT ×3 (07:51→21:42)
[2025-02-05] MEDS: VANCOMYCIN ADD-Vantage 1,000 MG in 0.9% NaCl ADD-Vantage 250 ML 250 MG IV (07:52)
[2025-02-05] MEDS: ondansetron 2 mg/ML SDV 2 mL 4 MG IVP (08:01)
[2025-02-05] MEDS: ATORVASTATIN 10 MG TABLET 20 MG PO (08:03)
[2025-02-05] MEDS: pantoprazole DR 40 mg Tablet PO (08:04)
[2025-02-05] MEDS: rivaroxaban 10 mg Tablet PO (08:04)
[2025-02-05] MEDS: amlodipine 10 mg Tablet PO (08:04)
[2025-02-05] MEDS: metoprolol tartrate 50 mg Tablet PO ×2 (08:04→17:21)
[2025-02-05] MEDS: hyDRALAzine 50 mg Tablet 100 MG PO ×3 (08:04→20:14)
[2025-02-05 11:41] LABS: Glucose Point of Care 115 mg/dL (70-110)
--- NOTE | 2025-02-05 13:06 | P.PN_ITS ---
Subjective 2 Subjective: 74 yo who presented with confusion, feve r, and abdominal pain. A family member reported Patient was fine the day before, but when someone went to check on her and give her lunch, she just wasn't right and was confused. Patient was brought to the hospital with a temperature of 100.5?F, complaining of abdominal pain, and had an elevated white blood cell count. On admission, Patient received IV antibiotics due to concerns for a possible infection. Today, Patient is significantly improved with no recurrence of fever. Vitals are stable. White blood cell count has decreased to 8.5. Patient reports a headache all night, which is unusual for her, persistent nausea and queasy stomach. Patient recently had COVID-19. Physical examination revealed an infected tooth, but this is not believed to be the cause of the current presentation. Patient's blood pressure on arrival was high and out of control. Medications: Reviewed: Yes Vitals/I&O/Wt Last Vital Signs Temp 99.0 F 02/05/25 11:41 Pulse 68 02/05/25 11:41 Resp 17 02/05/25 11:41 BP 96/67 02/05/25 11:41 Pulse Ox 93 02/05/25 11:41 O2 Del Method Room Air 02/05/25 11:41 02/04/25 02/05/25 02/05/25 22:59 06:59 14:59 Intake Total 1550 / 1550 1250 / 2800 879.167 / 879.167 Output Total 700 / 700 Balance 1550 / 1550 550 / 2100 879.167 / 879.167 Weight last 48 hrs Weight 99.79 kg Weight 99.79 kg Physical Exam 2 Narrative: General: Patient is awake. sitting up in NAD Head: Normocephalic. Atraumatic. EOM intact. Neck: No JVD. Cardiovascular: RRR. No gallops. No murmurs. No peripheral edema. Lungs: Breath sounds are diminished bilateral bases. on RA Skin: No jaundice. No rashes. Abdomen: Normal bowel sounds, abdomen soft and nontender. Extremities: No cyanosis or clubbing. Musculoskeletal: No swollen or erythematous joints. Neurological: Moves all 4 extremities. No myoclonus. Data 02/05/25 05:17 02/05/25 05:17 Micro: Microbiology 02/04/25 15:31 Blood Culture - Preliminary Blood SPECIMEN COLLECTED 02/04/25 15:25 Blood Culture - Preliminary Blood SPECIMEN COLLECTED A&P Assessment and plan (1) AMS (altered mental status): (2) Sepsis: (3) Fever of unknown origin: Plan Fever of Unclear Source - Temperature of 100.5?F noted in the emergency department - Low grade temp today otherwise - White blood cell count elevated at 18K - Now normal - Chest X-ray, CT Head, CT chest abd pelvis - no evidence of acute infection - CRP elevated however procalcitonin is negative - Blood culture - NGTD - No clear source of fever however given rapid resolution of leukocytosis, no recurrence of fever will de-escalate abx Plan: 1. Discontinue Vancomycin 2. Will continue to de-escalte abx if culture remain negative > 48hr, afebrile with no new symptoms Acute Encephalopathy - Resolved - Etiology unclear. Family at bedside and patient current back to baseline. Can not recall events leading to ER and admission - Head CT - No acute abnormality - Differential Diagnosis: 1. Infection (recent COVID-19 infection, possible new infection) 2. Metabolic derangement (elevated glucose) 3. Medication effect 4. Hypertensive encephalopathy - Plan: 1. No new orderes Hypertension - Blood pressure elevated at 177/88 on presentation in the setting of recent discharge on multiple antihypertensive - Patient's hypertension was previously difficult to control during recent hospitalization. - Now Becoming hypotensive. Improved gradually over last 24hr. Plan: 1. Continue current antihypertensive home regimen, will hold off on restarting bumex 2. Continue to adjust antihypertensive medications as needed based on blood pressure trends. Diabetes Mellitus with Hyperglycemia - Glucose of 302 on presentation in a patient with known type 2 diabetes. - Glucose now improved. Plan: 1.QACHS checks. 2.sliding scale insulin 3.Lantus at lower dose for now Recent COVID-19 Infection - Patient was recently discharged on 01/21/2025 after treatment for COVID-19 pneumonia. - S/p Remdesivir and Decadron (completed last monday) Plan: 1. Monitor closely for any signs or symptoms concerning for post-COVID complications such as worsening respiratory status, thromboembolism, or inflammatory syndromes. 2. Patient completed a course of Decadron for COVID-19 pneumonia on 01/28/2025. History of Atrial Fibrillation - Patient has a known history of paroxysmal atrial fibrillation but is not currently reporting any symptoms such as palpitations or chest pain. Plan: 1. Continue continuous telemetry 2. Continue home metoprolol 50 mg BID 3. Continue xarelto PDMP PDMP Reviewed: Not Reviewed Attestations 2 Medical Necessity Statement*: Patient will require over 2 midnight stay for eval and treatment of above. Coding Level of Care Code Acute Code for [facility] Fwd Diagnoses AMS (altered mental status) R41.82 Sepsis A41.9 Fever of unknown origin R50.9
[2025-02-05 17:00] LABS: Glucose Point of Care 265 mg/dL (70-110)
[2025-02-05] MEDS: gabapentin 400 mg Capsule 800 MG PO (20:14)
[2025-02-05 20:19] LABS: Glucose Point of Care 163 mg/dL (70-110)
[2025-02-05] MEDS: insulin glargine 100 units/1 mL 10 UNIT SUBCUT (21:42)
[2025-02-06 04:00] VITALS: BP 155/79; PULSE 71; RESP 16; TEMP 37; O2SAT 90
[2025-02-06 04:40] VITALS: RESP 18
[2025-02-06] MEDS: oxyCODONE 5 mg IR Tab/Cap 15 MG PO ×2 (04:40→11:53)
[2025-02-06 05:36] LABS: Basophils % 0.3 %; Eosinophils # 0.3 10^3/uL (0.0-0.8); Eosinophils % 5.4 %; Hematocrit 38.1 % (36-47); Lymphocytes # 1.5 10^3/uL (0.8-4.8); Mean Corpuscular HGB Conc 31.8 g/dL (30-55); Mean Corpuscular Hemoglobin 29.7 pg (27-33); Mean Corpuscular Volume 93.4 fl (85-98); Mean Platelet Volume 10.2 fL (7.4-10.4); Monocytes # 0.9 10^3/uL (0.2-0.9); Neutrophils # 3.27 10^3/uL (1.8-7.7); Neutrophils % 53.8 %; Nucleated Red Blood Cells % 0 %; Platelet Count 202 10^3/cmm (157-399); Red Blood Count 4.08 10^6/uL (3.85-5.65); Red Cell Distribution Width 14.6 % (12.1-15.1); White Blood Count 6.08 10^3/uL (3.29-11.43)
[2025-02-06 05:53] LABS: Blood Urea Nitrogen 12 mg/dL (8-23); Calcium 8.2 mg/dL (8.5-10.5); Carbon Dioxide 24 mmol/L (22-29); Chloride 104 mmol/L (98-107); Glucose 134 mg/dL (65-115); Osmolality Calculated 288 mOsm/kg (285-295); Sodium 138 mmol/L (136-145)
[2025-02-06 05:54] LABS: Anion Gap 13.9 (5-19); Potassium 3.9 mmol/L (3.5-5.1)
[2025-02-06] MEDS: piperacillin-tazobactam 3.375 GM in sodium chloride 0.9% (plus) 50 ML IV (06:21)
[2025-02-06 06:52] LABS: Glucose Point of Care 129 mg/dL (70-110)
[2025-02-06] MEDS: hyDRALAzine 50 mg Tablet 100 MG PO (07:42)
[2025-02-06] MEDS: rivaroxaban 10 mg Tablet PO (07:42)
[2025-02-06] MEDS: ATORVASTATIN 10 MG TABLET 20 MG PO (07:42)
[2025-02-06] MEDS: amlodipine 10 mg Tablet PO (07:43)
[2025-02-06] MEDS: gabapentin 400 mg Capsule 800 MG PO (07:43)
[2025-02-06] MEDS: metoprolol tartrate 50 mg Tablet PO (07:43)
[2025-02-06] MEDS: pantoprazole DR 40 mg Tablet PO (07:43)
[2025-02-06 08:00] VITALS: BP 145/92; PULSE 67; RESP 16; TEMP 37; O2SAT 90
[2025-02-06 10:46] LABS: Glucose Point of Care 220 mg/dL (70-110)
[2025-02-06] MEDS: insulin lispro 100 unit/1 mL SUBCUT (11:48)
[2025-02-06 11:53] VITALS: RESP 17
[2025-02-06 12:00] VITALS: BP 144/69; PULSE 60; RESP 16; TEMP 36.9; O2SAT 93
[2025-02-06 13:56] VITALS: BP 144/69; PULSE 60; RESP 16; O2SAT 93
--- NOTE | 2025-02-14 13:27 | P.DS_ITS ---
Discharge Providers Date of Admission: 02/04/25 17:55 Date of Discharge: 02/06/2025 Attending Provider at Admission: Helen Fishman Attending Provider at Discharge: Helen Fishman Primary Care Provider: DOMINICK Vizcarra Diagnoses at Discharge Discharge Diagnosis (1) AMS (altered mental status): Status: Resolved (2) Sepsis: Status: Resolved (3) Fever of unknown origin: Status: Resolved Reason for Visit Reason for Visit: Abd Pain Hospital Course Hospital Course 74-year-old female, was admitted to the hospital with confusion, fever, and abdominal pain. According to a family member, she was fine the day before, but the next day, she appeared confused and was not acting like herself. Upon arrival at the hospital, she had a temperature of 100.5?F, complained of abdominal pain, and had an elevated white blood cell count of 18,000. Initial management included the administration of IV antibiotics due to concerns of a possible infection. Throughout her hospital stay, the patient showed significant improvement, with no recurrence of fever, stable vital signs, and a decrease in her white blood cell count to 8.5. Notably, she had recently recovered from a COVID-19 infection. Although her blood pressure was initially high and difficult to control, it improved over time. Various diagnostic tests, including chest X-ray, CT of the head, and CT of the chest, abdomen, and pelvis, showed no evidence of acute infection. Despite an elevated CRP, the procalcitonin was negative, and blood cultures showed no growth to date. With the rapid resolution of leukocytosis and no recurrence of fever, the decision was made to de-escalate antibiotics. The patient also experienced acute encephalopathy, which resolved, although the etiology was unclear. A head CT showed no acute abnormalities, and differential diagnoses included infection, metabolic derangement, medication effects, and hypertensive encephalopathy. Her hypertension, initially elevated at 177/88, improved gradually. The patient's diabetes mellitus presented with hyperglycemia, with glucose levels improving over her stay. She was monitored closely for any post-COVID complications, having recently completed treatment for COVID-19 pneumonia. The patient has a history of atrial fibrillation but did not report any symptoms such as palpitations or chest pain during her stay. She was discharged in stable condition, with no clear source of infection identified, no recurrence of fever, and improved blood pressure. She was counseled extensively on monitoring for signs of infection and home blood pressure monitoring. No antibiotics were prescribed at discharge. Physical Exam Narrative: General: Patient is awake. sitting up in NAD Head: Normocephalic. Atraumatic. EOM intact. Neck: No JVD. Cardiovascular: RRR. No gallops. No murmurs. No peripheral edema. Lungs: Breath sounds are diminished bilateral bases. on RA Skin: No jaundice. No rashes. Abdomen: Normal bowel sounds, abdomen soft and nontender. Extremities: No cyanosis or clubbing. Musculoskeletal: No swollen or erythematous joints. Neurological: Moves all 4 extremities. No myoclonus. Discharge Data Studies Completed and Pending Completed Studies During Hospitalization Category Date Time Status CT Angio Chest + Abdomen Pelvis w/ contrast; 33393 + Cat Scan 02/04/25 14:[id number] head wo con* [id number] Stat Cat Scan 02/04/25 14:37 Completed XR chest 1V portable [id number] Stat Exams 02/04/25 14:37 Completed Radiology Impressions Chest X-Ray 02/04/25 14:37 IMPRESSION: 1. Abnormal elevation of the right hemidiaphragm up to the level of the right hilum, similar to the prior examination. 2. No new focal consolidation. Chest/Abdomen/Pelvis CT 02/04/25 14:37 IMPRESSION: 1. No pulmonary emboli. 2. No focal consolidations. IMPRESSION: 1. No bowel obstruction or inflammatory process associated with the bowel. 2. No free air or significant free fluid in the abdomen or pelvis. 3. No evidence of appendicitis. Head CT 02/04/25 14:37 IMPRESSION: 1. No acute intracranial abnormality. 2. Small-vessel ischemic disease. Laboratory Results WBC 6.08 10^3/uL (3.29-11.43) 02/06/25 05:15 RBC 4.08 10^6/uL (3.85-5.65) 02/06/25 05:15 Hgb 12.10 g/dL (11.27-16.99) 02/06/25 05:15 Hct 38.1 % (36-47) 02/06/25 05:15 MCV 93.4 fl (85-98) 02/06/25 05:15 MCH 29.7 pg (27-33) 02/06/25 05:15 MCHC 31.8 g/dL (30-55) 02/06/25 05:15 RDW 14.6 % (12.1-15.1) 02/06/25 05:15 Plt Count 202 10^3/cmm (157-399) 02/06/25 05:15 MPV 10.2 fL (7.4-10.4) 02/06/25 05:15 Neut % (Auto) 53.8 % 02/06/25 05:15 Lymph % (Auto) 25.0 % 02/06/25 05:15 [place] % (Auto) 15.0 % 02/06/25 05:15 Eos % (Auto) 5.4 % 02/06/25 05:15 Baso % (Auto) 0.3 % 02/06/25 05:15 Neut # (Auto) 3.27 10^3/uL (1.8-7.7) 02/06/25 05:15 Lymph # (Auto) 1.5 10^3/uL (0.8-4.8) 02/06/25 05:15 [place] # (Auto) 0.9 10^3/uL (0.2-0.9) 02/06/25 05:15 Eos # (Auto) 0.3 10^3/uL (0.0-0.8) 02/06/25 05:15 Baso # (Auto) 0.0 10^3/uL (0.0-0.1) 02/06/25 05:15 Nucleated RBC % (auto) 0 % 02/06/25 05:15 Nucleated RBCs # 0.0 /100WBC 02/06/25 05:15 PT 14.20 SECONDS (12.1-14.9) 02/04/25 15:09 INR 1.03 (0.8-1.2) 02/04/25 15:09 Specimen Type Arterial 02/04/25 14:36 Sample Site Radial, left 02/04/25 14:36 ABG pH 7.38 (7.35-7.45) 02/04/25 14:36 ABG pCO2 36.3 mmHg (35-45) 02/04/25 14:36 ABG pO2 56.2 mmHg (80.0-100.0) L 02/04/25 14:36 ABG PO2/FiO2 Ratio 267 02/04/25 14:36 ABG HCO3 21.5 mmol/L (22-26) L 02/04/25 14:36 ABG Base Excess -3.0 mmol/L (-2.0-2.0) L 02/04/25 14:36 Reji Test Pos 02/04/25 14:36 Hematocrit 43.4 % (37-47) 02/04/25 14:36 Hgb O2 Saturation 89.3 % (95-100) L 02/04/25 14:36 Carboxyhemoglobin 1.2 %THgb (0.4-20.1) 02/04/25 14:36 Methemoglobin 1.1 % (0.4-1.5) 02/04/25 14:36 Total Hemoglobin 14.2 g/dL (12-16) 02/04/25 14:36 O2 Delivery Device Room air 02/04/25 14:36 FiO2 21.0 % 02/04/25 14:36 Greenhouse Specialist ID [place] 02/04/25 14:36 Sodium 138 mmol/L (136-145) 02/06/25 05:15 Potassium 3.9 mmol/L (3.5-5.1) 02/06/25 05:15 Chloride 104 mmol/L (98-107) 02/06/25 05:15 Carbon Dioxide 24 mmol/L (22-29) 02/06/25 05:15 Anion Gap 13.9 (5-19) 02/06/25 05:15 BUN 12 mg/dL (8-23) 02/06/25 05:15 Creatinine 0.9 mg/dL (0.5-0.9) 02/06/25 05:15 GFR Calculation Not Reportable 02/06/25 05:15 Glucose 134 mg/dL (65-115) H 02/06/25 05:15 POC Glucose 220 mg/dL (70-110) H 02/06/25 10:35 Calculated Osmolality 288 mOsm/kg (285-295) 02/06/25 05:15 Lactic Acid 1.5 mmol/L (0.5-2.2) 02/04/25 15:09 Calcium 8.2 mg/dL (8.5-10.5) L 02/06/25 05:15 Total Bilirubin 0.5 mg/dL (0.15-1.2) 02/04/25 15:09 AST 21 U/L (0-32) 02/04/25 15:09 ALT 19 U/L (0-33) 02/04/25 15:09 Alkaline Phosphatase 47 U/L (35-105) 02/04/25 15:09 Troponin T Baseline 22 ng/L (0-10) H 02/04/25 15:09 Troponin T 120 Minute 23.72 ng/L (0-10) H 02/04/25 16:59 Delta Troponin T 1.72 ABS# (0-10) 02/04/25 16:59 Troponin T Hi Sens 6Hr 25.91 ng/L (0-10) H 02/04/25 21:29 Troponin T Hi Sens 6Hr Delta 3.91 ng/L (0-12) 02/04/25 21:29 C-Reactive Protein 32.7 mg/L (0.0-4.9) H 02/04/25 16:59 NT-Pro-B Natriuret Pep 531 pg/mL (0-125) H 02/04/25 15:09 Total Protein 6.8 g/dL (6.6-8.7) 02/04/25 15:09 Albumin 4.2 g/dL (3.5-5.2) 02/04/25 15:09 Globulin 2.6 g/dL (1.3-4.6) 02/04/25 15:09 Lipase 19 U/L (13-60) 02/04/25 15:09 Procalcitonin 0.34 ng/mL (0-0.5) 02/04/25 16:59 TSH 1.44 uIU/mL (0.27-4.20) 02/04/25 15:09 Urine Color Yellow (Yellow) 02/04/25 14:54 Urine Appearance Clear (CLEAR) 02/04/25 14:54 Urine pH 5.0 (5-7) 02/04/25 14:54 Ur Specific Navarro 1.029 (1.005-1.030) 02/04/25 14:54 Urine Protein 1+ (Negative) A 02/04/25 14:54 Urine Glucose (UA) 3+ (Normal) H 02/04/25 14:54 Urine Ketones 1+ (Negative) H 02/04/25 14:54 Urine Blood Negative (Negative) 02/04/25 14:54 Urine Nitrate Negative (Negative) 02/04/25 14:54 Urine Bilirubin Negative (Negative) 02/04/25 14:54 Urine Urobilinogen 1.0 mg/dL (Negative) 02/04/25 14:54 Ur Leukocyte Esterase Negative (Negative) 02/04/25 14:54 Urine RBC 0-2 /hpf (0-2) 02/04/25 14:54 Urine WBC 0-5 /hpf (0-5) 02/04/25 14:54 Ur Squamous Epith Cells 0-5 /hpf (0-5) 02/04/25 14:54 Amorphous Sediment Not Reportable 02/04/25 14:54 Urine Bacteria None seen /hpf (NONE) 02/04/25 14:54 Hyaline Casts 1.65 /lpf 02/04/25 14:54 Vitals Last Vital Signs Temp 98.5 F 02/06/25 12:00 Pulse 60 02/06/25 13:56 Resp 16 02/06/25 13:56 BP 144/69 02/06/25 13:56 Pulse Ox 93 02/06/25 13:56 O2 Del Method Room Air 02/06/25 12:00 Discharge Plan Discharge Patient Disposition: Home Condition: Stable Prescriptions: Continued fenofibrate 160 mg tablet 160 mg PO DAILY Qty: 90 1RF amlodipine 10 mg tablet 10 mg PO DAILY Qty: 30 2RF insulin degludec [Tresiba FlexTouch U-100] 100 unit/mL (3 mL) insulin pen 20 unit SUBCUT QAM Qty: 15 5RF (DME) BD Luer-Beth Syringe 3 mL 25 gauge x 1 syringe See Rx Instructions .ROUTE .COMPLEX Qty: 1 5RF Dose Instruction: USE ONE SYRINGE MONTHLY TO INJECT B12 Rx Instructions: USE ONE SYRINGE MONTHLY TO INJECT B12 (DME) glucometer testing kit See Rx Instructions .Route .MEDSUPPLY Qty: 1 0RF Rx Instructions: Glucometer testing kit, check blood sugars 3 times daily -Lancets #100, strips #100 (DME) glucometer testing kit See Rx Instructions .Route .MEDSUPPLY Qty: 1 0RF Rx Instructions: Glucometer testing kit, check blood sugars 3 times daily, after meals based on sliding scale provided Lancets #100 Strips #100 oxycodone 15 mg tablet 15 mg PO Q4H PRN (Reason: Pain) levalbuterol tartrate 45 mcg/actuation HFA aerosol inhaler 2 puff INHALATION Q6H PRN (Reason: Shortness Of Breath) ondansetron 8 mg tablet,disintegrating 8 mg PO Q6H PRN (Reason: Nausea And Vomiting) glipizide 10 mg tablet extended release 24hr 10 mg PO DAILY simvastatin 40 mg tablet 40 mg PO DAILY famotidine 20 mg tablet 20 mg PO BID magnesium oxide 400 mg (241.3 mg magnesium) tablet 400 mg PO DAILY gabapentin 800 mg tablet 800 mg PO TID cyanocobalamin (vitamin B-12) 1,000 mcg/mL solution 1,000 mcg SUBCUT .Q30D metformin 1,000 mg tablet 1,000 mg PO BID metoprolol tartrate 50 mg tablet 50 mg PO BID ergocalciferol (vitamin D2) 1,250 mcg (50,000 unit) capsule 50,000 unit PO Q7D Rx Instructions: Monday Xarelto 10 mg tablet 10 mg PO DAILY hydralazine 100 mg tablet 100 mg PO TID 30 Days Qty: 90 0RF Changed lisinopril 40 mg tablet 40 mg PO DAILY Qty: 30 0RF Discontinued oxycodone-acetaminophen 7.5-325 mg tablet 1 tab PO Q8H PRN (Reason: Pain) bumetanide 1 mg Tablet 1 mg PO DAILY 30 Days Qty: 30 0RF Discharge Orders: Discharge Order (Routine); Ordered 02/06/25 Ordered By: Helen Fishman Referrals: Sheri Black FNP [Primary Care Provider] - 02/20/25 8:40 am Discharge Diet: Usual diet Discharge Activity: Increase activity as tolerated Patient Instructions: Acute Abdominal Pain (GEN), Altered Mental Status (GEN), Opioid Safety Discharge Attestations Time Spent in Discharge Care*: greater than 30 min Status at Discharge: Cognitive status at discharge: cognitively intact , Behavioral status at discharge: cooperative , Functional status at discharge: independent ambulation , Overall status at discharge: patient is back to baseline Quality Metrics Clinical Quality Measures [ No reported AMI, CVA or VTE this stay] Coding Level of Care Code Acute Code for g Fwd Diagnoses AMS (altered mental status) R41.82 Sepsis A41.9 Fever of unknown origin R50.9
== END 2025-02-06 13:45 | disposition home or self-care (01) | DRG 872 ==
LOC: ER 17:28 → MEDSURG 17:56
PROVIDERS: Admitting Provider Hospitalist; Emergency Provider Emergency Medicine; PCP Nurse Practitioner Family; Visit Provider Hospitalist
DX: A41.9 Sepsis, unspecified organism (principal); G93.40 Encephalopathy, unspecified; Z68.41 Body mass index [BMI] 40.0-44.9, adult; Z86.16 Personal history of COVID-19; E11.65 Type 2 diabetes mellitus with hyperglycemia; E11.40 Type 2 diabetes mellitus with diabetic neuropathy, unspecified; Z87.01 Personal history of pneumonia (recurrent); I48.0 Paroxysmal atrial fibrillation; Z79.4 Long term (current) use of insulin; Z79.891 Long term (current) use of opiate analgesic; Z79.84 Long term (current) use of oral hypoglycemic drugs; Z79.01 Long term (current) use of anticoagulants; E66.9 Obesity, unspecified; E53.8 Deficiency of other specified B group vitamins; E55.9 Vitamin D deficiency, unspecified; K21.9 Gastro-esophageal reflux disease without esophagitis; E78.5 Hyperlipidemia, unspecified; G89.29 Other chronic pain; M54.9 Dorsalgia, unspecified; I10 Essential (primary) hypertension
CPT/HCPCS: 36415; 36416; 36600; 70450; 71045; 71275; 74177; 80048; 80053; 81001; 82805; 82962; 83605; 83690; 83880; 84145; 84443; 84484; 85025; 85610; 86140; 87040; 93005; 96365; 96367; 96372; 99285; J1815; J2405; J2543; J3370; J7030; J7050; J9999

== ENCOUNTER → 2025-02-13 13:52 | Outpatient (BNVA) | payer MEDICARE, MEDICAID, SELFPAY | PROVIDERS: PCP Nurse Practitioner Family; Visit Provider Nurse Practitioner Family | DX: E11.9 Type 2 diabetes mellitus without complications (principal) | CPT/HCPCS: 80053; 80061; 82607; 83036 ==

== ENCOUNTER 2025-06-11 05:23 | Emergency (ER) | payer MEDICARE, MEDICAID, SELFPAY ==
[2025-06-11 05:24] VITALS: BP 146/83; PULSE 61; RESP 17; TEMP 36.7; O2SAT 94; BMI 38.7
--- NOTE | 2025-06-11 05:27 | CTR_ITS ---
PROCEDURE INFORMATION: Exam: CT Head Without Contrast Exam date and time: 06/11/2025 5:44 AM Age: 75 years old Clinical indication: Injury or trauma; Fall; Concussion/head injury; Additional info: Fall, head injury TECHNIQUE: Imaging protocol: Computed tomography of the head without contrast. Radiation optimization: All CT scans at this facility use at least one of these dose optimization techniques: automated exposure control; mA and/or kV adjustment per patient size (includes targeted exams where dose is matched to clinical indication); or iterative reconstruction. COMPARISON: CT head wo con* [id number] 02/04/2025 4:15 PM RADIATION DOSE METRICS: Total DLP (mGy-cm): 1040 FINDINGS: Brain: Normal. No hemorrhage. Unremarkable white matter. No mass effect. Cerebral ventricles: No ventriculomegaly. Paranasal sinuses: Visualized sinuses are unremarkable. No fluid levels. Mastoid air cells: Visualized mastoid air cells are well aerated. Bones: Unremarkable. No acute fracture. Soft tissues: Unremarkable. CT/CT head wo con* [id number] IMPRESSION: No acute intracranial abnormality.
--- OUTSIDE RECORDS SUMMARY | 2025-06-11 05:33 | XMS_ITS | Encounter Summary ---
Author Organization [facility] Address [address] [place] [address] Care Team Providers Care Government Auditor Name Role Phone Ramona Galarza DO Primary Care Provider [phone] Reason for Visit * Reason Comments Provider Call Encounter Details Date Type Department Care Team (Late st Contact Info) Description 06/10/2025 Telephone [facility] [place] [address] [place] [address] Ramona Galarza DO [address] [place] [address] Provider Call Social History Tobacco Use Types Packs/Day Years Used Date Smoking Tobacco: Never Passive Smoke Exposure: Never Smokeless Tobacco: Never Alcohol Use Standard Drinks/Week Comments Never 0 (1 standard drink = 0.6 oz pur e alcohol) Comments No Sex and Gender Information Value Date Recorded Sex Assigned at Not on file 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 Topic: [id number] Call >> Jun 10, 2025 3:54 PM Mike Hermosillo wrote: Caller is requesting to speak with Clinical Care Team. Caller Name: [facility] Callback Number: [phone] Is the caller a Physician, Nurse Practitioner or Physician Medical Practice Manager? No Call Notes: sent over a clinical recommendation on 05/02 and they have since resent it. Calling to get an update on this? Is this addressing an immediate patient care need? No documented in this encounter Plan of Treatment Upcoming Encounters Date Type Department Care Team (Late st Contact Info) Description 06/18/2025 2:20 PM CDT Office Visit [facility] [address] [place] [facility] [place] [address] Ramona Galarza, DO [address] [place] [id number] 09/25/2025 1:00 PM JAVA SWING DEVELOPER Office Visit [facility] [address] [place] [phone] Ramona Galarza, DO [address] [place] [address] documented as of this encounter Visit Diagnoses Not on filedocumented in this encounter Care Teams Government Auditor Relationship Specialty Start Date End Date Ramona Galarza DO [address] [place] [address] PCP - General Family Practice 02/12/24 documented as of this encounter
--- OUTSIDE RECORDS SUMMARY | 2025-06-11 05:33 | XMS_ITS | Encounter Summary ---
Author Organization [facility] Address [address] [place] [address] Care Team Providers Care Plastics Nurse Name Role Phone Ramona Galarza DO Primary Care Provider [phone] Reason for Visit * Reason Comments Med Refill Encounter Details Date Type Department Care Team (Late st Contact Info) Description 06/09/2025 Refill [facility] [address] [place] [address] Ramona Galarza DO [address] [place] [address] Social History Tobacco Use Types Packs/Day Years Used Date Smoking Tobacco: Never Passive Smoke Exposure: Never Smokeless Tobacco: Never Alcohol Use Standard Drinks/Week Comments Never 0 (1 standard drink = 0.6 oz pur e alcohol) Comments No Sex and Gender Information Value Date Recorded Sex Assigned at Not on file 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 Gender Identity Not on file Sexual Orientation Not on file documented as of this encounter Miscellaneous Notes * Telephone Encounter - Julia Jaramillo LPN - 06/09/2025 4:53 PM CDT Medication Refill Request Last Fill Date:05/29/24 93 RF LACEY 03/18/25 Recent and Future Visits: Recent Visits Date Type Provider Dept 03/18/25 Office Visit Sandrine Braga FNP [facility] 01/16/25 Office Visit Ramona Galarza DO [facility] 09/19/24 Office Visit Ramona Galarza, [facility] 05/22/24 Office Visit Ramona Galarza, [facility] 02/19/24 Office Visit Ramona Galarza, DO [facility] 02/15/24 Office Visit Sharon Lee FNP [facility] Showing recent visits within past 540 days with a meds authorizing provider and meeting all other requirements Future Appointments Date Type Provider Dept 06/18/25 Appointment Ramona Galarza, [facility] 09/25/25 Appointment Ramona Galarza, [facility] Showing future appointments within next 365 [...] - 1950 Check and review of the [place] PDMP performed on 06/09/2025 at 4:54 PM was documented in this encounter Plan of Treatment Upcoming Encounters Date Type Department Care Team (Late st Contact Info) Description 06/18/2025 2:20 PM CDT Office Visit [facility] [address] [place] [phone] Ramona Galarza DO [address] [place] [phone] 09/25/2025 1:00 PM MOTION DESIGNER Office Visit [facility] [address] [place] [phone] Ramona Galarza DO [address] [place] [address] documented as of this encounter Visit Diagnoses Not on filedocumented in this encounter Care Teams Plastics Nurse Relationship Specialty Start Date End Date Ramona Galarza DO [address] [facility] [place] [phone] PCP - General Family Practice 02/12/24 documented as of this encounter
--- OUTSIDE RECORDS SUMMARY | 2025-06-11 05:33 | XMS_ITS | Clinical Summary ---
Author Organization [facility] Address [address] [place] [address] Care Team Providers Care Butadiene Converter Utility Operator Name Role Phone Ramona Galarza DO Primary Care Provider [phone] Allergies No known active allergies Medications loratadine/pseu doephedrine (CLARITIN-D 12 HOUR ORAL) Take 10 mg [...] mg by mouth daily with supper. Active cyanocobalamin (VITAMIN B-12) 1,000 mcg/mL Solution Inject 1 mL by intramuscular injection every 30 days. Active fenofibrate (LOFIBRA) 160 mg Tablet Take 160 mg by mouth daily. Active ergocalciferol (VITAMIN D2) 50,000 unit capsule Take 50,000 Units by mouth every 7 days. Active gabapentin (NEURONTIN) 800 mg tabletIndicatio ns:Chronic midline low back pain with bilateral sciatica Take 800 mg by mouth 3 times daily. Active famotidine (PEPCID) 20 mg tablet Take 1 Tablet (20 mg) by mouth 2 times daily. 180 Tablet 4 023 Active oxygen home delivery Home Oxygen Concentrator no at 2 L/M Rest, 2 L/M Activity, 2 L/M Sleep, Delivery Device: Nasal Cannula Portability: no, 2 L/M Rest, 2 L/M Activity, May provide device best for patient needs(E system,home fill, conserving device) Length of Need: 99 months 1 Each 024 Active metoprolol tartrate (LOPRESSOR) 50 mg tablet Take 1 Tablet (50 mg) by mouth 2 times daily. 60 Tablet 1 024 Active naloxone (NARCAN) 4 mg/spray [place], Non-Aerosol EMERGENCY USE ONLY: Administer 1 spray (4 mg) in one nostril one time. May repeat in alternating nostrils every 2-3 min until responsive or EMS arrives. 2 Each 3 024 Active Tresiba FlexTouch U-100 100 unit/mL (3 mL) pen syringe Inject 15 Units by subcutaneous injection daily with breakfast. 024 Active Xarelto 10 mg Tablet Take 10 mg by mouth daily with supper. 024 Active amLODIPine (NORVASC) 5 mg tablet Take 10 mg by mouth daily. Active oxyCODONE (ROXICODONE) 15 mg tabletIndicatio ns:Lumbago with sciatica, right side Take 1 Tablet (15 mg) by mouth every 4 hours as needed for Pain, Moderate. Do not fill until 02/16/2025 Max Daily Amount: 90 mg 180 Tablet 025 Active oxyCODONE (ROXICODONE) 15 mg tabletIndicatio ns:Lumbago with sciatica, right side Take 1 Tablet (15 mg) by mouth every 4 hours as needed for Pain, Moderate. Do not fill until 03/18/2025 Max Daily Amount: 90 mg 180 Tablet 025 Active ondansetron (ZOFRAN ODT) 8 mg Tablet, Rapid Dissolve DISSOLVE ONE TABLET ON TOP OF TONGUE THEN SWALLOW WITH SALIVA EVERY 6 HOURS NEEDED 60 Tablet 6 025 Active hydrALAZINE (APRESOLINE) 50 mg tabletIndicatio ns:Essential hypertension Take 1 Tablet (50 mg) by mouth 3 times daily. 90 Tablet 025 Active oxyCODONE (ROXICODONE) 15 mg tabletIndicatio ns:Lumbago with sciatica, right side Take 1 Tablet (15 mg) by mouth every 4 hours as needed for Pain, Moderate. Do not fill until 04/18/2025 Max Daily Amount: 90 mg 180 Tablet 025 Active oxyCODONE-aceta minophen (PERCOCET) 7.5-325 mg TabletIndicatio ns:Lumbago with sciatica, right side,Chronic midline low back pain with bilateral sciatica Take 1 Tablet by mouth 2 times daily as needed for Pain, Moderate. Max Daily Amount: 2 Tablets 60 Tablet 025 Active oxyCODONE-aceta minophen (PERCOCET) 7.5-325 mg TabletIndicatio ns:Lumbago with sciatica, right side,Chronic midline low back pain with bilateral sciatica Take 1 Tablet by mouth 2 times daily as needed for Pain, Moderate. Do not fill until 04/18/2025 Max Daily Amount: 2 Tablets 60 Tablet 025 Active oxyCODONE-aceta minophen (PERCOCET) 7.5-325 mg TabletIndicatio ns:Lumbago with sciatica, right side,Chronic midline low back pain with bilateral sciatica Take 1 Tablet by mouth 2 times daily as needed for Pain, Moderate. Do not fill until 05/18/2025 Max Daily Amount: 2 Tablets 60 Tablet 025 Active oxyCODONE (ROXICODONE) 15 mg tabletIndicatio ns:Lumbago with sciatica, right side Take 1 Tablet (15 mg) by mouth every 4 hours as needed for Pain, Moderate. Do not fill until 05/18/2025 Max Daily Amount: 90 mg 180 Tablet 025 Active levalbuterol HFA (XOPENEX HFA) 45 mcg/Actuation HFA Aerosol Inhaler INHALE TWO PUFFS INTO LUNGS EVERY 6 HOURS NEEDED FOR SHORTNESS OF BREATH 15 Gram 93 025 Active levalbuterol HFA (XOPENEX HFA) 45 mcg/Actuation HFA Aerosol Inhaler INHALE TWO PUFFS INTO LUNGS EVERY 6 HOURS NEEDED FOR SHORTNESS OF BREATH 15 Gram 93 024 2024 Discontinued Active Problems Problem Noted Date Diagnosed Date Morbid obesity with body mass index of 40.0-49.9 01/26/2025 Frail elderly 01/26/2025 Hypoxia 02/09/2024 Chronic respiratory failure with hypoxia [...] insulin 10/06/2020 Bilateral lower extremity edema 10/06/2020 Resolved Problems Problem Noted Date Diagnosed Date Resolved Date Severe obesity (BMI 35.0-39. 9) with comorbidity 10/06/2020 01/26/2025 Encounters Date Type Department Care Team Description 06/10/2025 Telephone [facility] [address] [place] [phone] Ramona Galarza DO Provider Call 06/09/2025 Refill [facility] [address] [place] [phone] Ramona Galarza DO 04/10/2025 Orders Only [facility] [address] [place] [phone] Ramona Galarza, Type 2 diabetes mellitus without complication, without long-term current use of insulin ([facility]) 03/24/2025 Telephone [facility] [address] [place] [id number] Ramona Galarza DO Medication Assistance 03/18/2025 10:00 AM CDT Office Visit [facility] [address] [place] [address] [employer], 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 Essential hypertension (Primary Dx); Chronic midline low back pain with right-sided sciatica; Type 2 diabetes mellitus without complication, without long-term current use of insulin ([facility]); Bilateral lower extremity edema 03/18/2025 Refill [facility] [address] [place] [address] Ramona Galarza DO 03/18/2025 Refill [facility] [address] [place] [address] Ramona Galarza, DO Lumbago with sciatica, right side; Chronic midline low back pain with bilateral sciatica from Last 3 Months Immunizations Immunization Administration Dates Next Due INFLUENZA VACCINE HIGH DOSE QUADRIVALENT 65 YR UP PF IM 08/21/2023,08/19/2022 INFLUENZA VACCINE HIGH DOSE TRIVALENT SPLIT VIRUS, (65 YR UP), 0.5ML (PF), IM 09/19/2024 Social History Tobacco Use Types Packs/Day Years Used Date Smoking Tobacco: Never Passive Smoke Exposure: Never Smokeless Tobacco: Never Tobacco Cessation:Counseling Given: No Alcohol Use Standard Drinks/Week Comments Never 0 (1 standard drink = 0.6 oz pur e alcohol) Comments No Sex and Gender Information Value Date Recorded Sex Assigned at Not on file 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 Gender Identity Not on file Sexual Orientation Not on file Last Filed Vital Signs Vital Sign Reading Time Taken Comments Blood Pressure 186/90 03/18/2025 11:01 AM CDT Pulse 67 03/18/2025 10:24 AM CDT Temperature 37.1 C (98.7 F) 03/18/2025 10:24 AM CDT Respiratory Rate 18 03/18/2025 10:24 AM CDT Oxygen Saturation 93% 03/18/2025 10:24 AM CDT Inhaled Oxygen Concentration - - Weight 97.5 kg (215 lb) 03/18/2025 10:24 AM CDT Height 157.5 cm (5' 2 ) 03/18/2025 10:24 AM CDT Body Mass Index 39.32 03/18/2025 10:24 AM CDT Plan of Treatment Upcoming Encounters Date Type Department Care Team (Late st Contact Info) Description 06/18/2025 2:20 PM CDT Office Visit [facility] [address] [place] [facility] [address] Ramona Galarza, DO [address] [place] [phone] 09/25/2025 1:00 PM GENERAL FARM MANAGER Office Visit [facility] [address] [place] [phone] Ramona Galarza, DO [address] [place] [phone] Health Maintenance Due Date Last Done Comments FIT/ DNA Q 3 YEARS (AUTO ORDER) 1969 FIT/FOBT Q 1 YEAR (AUTO ORDER) 1969 FLEX SIG/CT COLONOGRAPHY Q 5 YEARS (AUTO ORDER) 1969 DTAP/TDAP/TD VACCINES (1 - Tdap) 1970 PNEUMOCOCCAL VACCINE 50+ YEA RS (1 of 2 - PCV) 1970 COLORECTAL CANCER SCREENING (AUTO ORDER) 1996 COLORECTAL SCREENING 1996 Colorectal Cancer Screening (AUTO ORDER) 1996 Colorectal Cancer Screening 1996 FIT-DNA Q 3 years 1996 FIT/FOBT Q 1 year 1996 Flex Sig/CT Colonography Q 5 years 1996 ZOSTER VACCINE (1 of 2) 2001 RSV VACCINE (60+ or ) (1 - Risk 60-74 years 1-dose series) 2011 BREAST CANCER SCREENING 02/20/2018 02/20/2017 OSTEOPOROSIS SCREENING 02/20/2022 02/20/2017 LDL CHOLESTEROL ANNUAL 08/24/2022 , 01/27/2021, 09/01/2020, Additional history exists DIABETES ANNUAL RETINAL EXAM 12/17/20222, 12/14/2020, 12/14/2020, Additional history exists DIABETES: A1C (Auto Order) 05/08/202402/05, 10/17/2023, 03/30/2023, Additional history exists COVID-19 Vaccine (2023-12 5 season) 2024 07/15/2021, 06/17/2021 DIABETES HBA1C Q 6 MONTHS 08/08/20242023, 10/17/2023, 03/30/2023, Additional history exists KHE eGFR (Auto Order) 11/13/2024 02/09/2024, 024 KHE uACR (Auto Order) 11/13/2024 09/19/2024 [place] Preventative Visit/Annual Wellness Visit 11/13/2024 09/19/2024, 08/21/2023, 02/17/2022 INFLUENZA VACCINE (#1) 2025 , 08/21/2023, 08/19/2022, Additional history exists DIABETES MICROALBUMIN ANNUAL SCREEN 09/19/2025 09/19/2024, 01/27/2021 DIABETES ANNUAL FOOT EXAM 01/16/20262024, 09/19/2024, 05/22/2024, Additional history exists Procedures Procedure Name Priority Date/Time Associated Diagnosis Comments MICROALBUMIN/CREATIN INE RATIO, RANDOM UR Routine 09/19/2024 2:03 PM GENERAL FARM MANAGER Type 2 diabetes mellitus without complication, without long-term current use of insulin ([facility]) BASIC METABOLIC PANEL Stat 02/09/2024 10:05 AM CDT HEMOGLOBIN A1C Routine 02/06/2024 LIPID PANEL Routine 08/24/2021 DIABETES EYE EXAM Routine 12/14/2020 from Last 3 Months or Most Recently Relevant to Health Maintenance Results * (ABNORMAL) MICROALBUMIN/CREATININE RATIO, RANDOM UR (09/19/2024 2:03 PM GENERAL FARM MANAGER) Creatinine, Urine 100 20 - 275 mg/dL [facility] MICROALBUMIN, URINE 7.0 See Note: mg/dL [facility] Comment: Reference Range: Reference Range Not established MICROALBUMIN/CREAT RATIO, UR 70(H) <30 mg/g creat [facility] Comment: The ADA defines abnormalities in albumin excretion as follows: Albuminuria Category Result (mg/g creatinine) Normal to Mildly increased <30 Moderately increased 30-299 Severely increased > OR = 300 The ADA recommends that at least two of three specimens collected within a 3-6 month period be abnormal before considering a patient to be within a diagnostic category. FASTING:UNKNOWN FASTING: UNKNOWN Test Performed at: [facility] [address] [place] [address] Cody Faith MD Urine URINE SPECIMEN OBTAINED BY CLEAN CATCH PROCEDURE / Unknown 09/19/2024 2:03 PM GENERAL FARM MANAGER 09/20/2024 2:40 AM GENERAL FARM MANAGER us Ramona Galarza DO URINE ORDERABLES Final Resu lt [facility] [phone] [address] * (ABNORMAL) BASIC METABOLIC PANEL (02/09/2024 10:05 AM CDT) Pathologist [facility] SODIUM 137 136 - 145 mmol/L 02/09/2024 10:52 AM CDT [facility] POTASSIUM 4.6 3.5 - 5.1 mmol/L 02/09/2024 10:52 AM CDT [facility] CHLORIDE 100 98 - 107 mmol/L 02/09/2024 10:52 AM CDT [facility] CO2 28 22 - 29 mmol/L 02/09/2024 10:52 AM CDT [facility] CALCIUM 9.2 8.8 - 10.2 mg/dL 02/09/2024 10:52 AM T [facility] BUN 42(H) 8 - 23 mg/dL 02/09/2024 10:52 AM T [facility] CREATININE 1.43(H) 0.51 - 0.95 mg/dL 02/09/2024 10:52 AM [facility] Comment:The GFR result is no t clinically significant on patients <18 or >70 years of age. GLUCOSE 198(H) 74 - 99 mg/dL 02/09/2024 10:52 AM [facility] GFR 39 mL/min/1. 73 sq meter 02/09/2024 10:52 AM T [facility] Comment:eGFR calculated with 2020 CKD-EPI equation. Vegetarian diet, extremely high or low muscle mass, and may affect results. Cystatin C with Glomerular Filtration Rate is a suitable alternative for these patients. ANION GAP 9 9 - 20 mmol/L 02/09/2024 10:52 AM [facility] Blood Venipuncture / Unknown 02/09/2024 10:05 AM CDT 02/09/2024 10:16 AM CDT Amado Coker MD CHEMISTRY ORDERABLES Final Resu lt [facility] CLIA # [id number] [address] [place] [id number] * HEMOGLOBIN A1C (02/06/2024) ABSTRACTED HGB A1C 8.7 % [facility] Blood 02/06/2024 Abstract Provider CHEMISTRY ORDERABLES Final Res ult [facility] * LIPID PANEL (08/24/2021) ABSTRACTED CHOLESTEROL 185 ABSTRACTED TRIGLYCERIDE 226 ABSTRACTED HDL 37 ABSTRACTED LDL CALCULATED 103 Blood 08/24/2021 us Abstract Provider CHEMISTRY ORDERABLES Final Res ult * HM DIABETES EYE EXAM (12/14/2020) us Abstract Provider HEALTH MAINTENANCE Final Resul t from Last 3 Months or Most Recently Relevant to Health Maintenance Insurance MEDICAID [place] DUAL COMPLETE PPO [facility] [id number] Advance Directives For more information, please contact: [phone] * Full Code (Latest Code Status on File) Date Activated Date Inactivated Comments 02/07/2024 11:36 PM 02/10/2024 1:11 PM Care Teams Butadiene Converter Utility Operator Relationship Specialty Start Date End Date Ramona Galarza DO [address] [place] [address] PCP - General Family Practice 02/12/24
--- OUTSIDE RECORDS SUMMARY | 2025-06-11 05:33 | XMS_ITS | Clinical Summary ---
Author Organization [facility] Address [address] [place] [address] Care Team Providers Care Lease Administrator Name Role Phone Unavailable Primary Care Provider [...] mouth daily. Active mometasone (NASONEX) 50 mcg/actuation [place], Non-Aerosol daily. 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
--- NOTE | 2025-06-11 05:35 | W.ED.FALL ---
Documented by User: Arabella Slade MD 06/11/25 05:37 HPI - Fall General: Chief Complaint: Fall Stated Complaint: Fall w/head injury Time Seen by Provider: 06/11/25 05:24 History of Present Illness: 75-year-old female with history of type 2 diabetes mellitus2, atrial fibrillation with chronic anticoagulation on Xarelto, GERD, neuropathy, hypertension and hyperlipidemia who presents emergency room by ambulance after having a fall. She hit her head. She said she tripped. She has a history of intracranial hemorrhage. She is on Xarelto. She reports no head pain at this time. No altered mental status. She has chronic pain in her back and arm. This is unchanged from normal. Related Data Home Medications ?Medication ?Instructions ?Recorded ?Confirmed levalbuterol tartrate 45 2 puff inhalation Q6H PRN 07/01/22 03/20/25 mcg/actuation aerosol inhaler Shortness Of Breath oxycodone 15 mg tablet 15 mg PO Q4H PRN Pain 07/01/22 03/20/25 ondansetron 8 mg disintegrating 8 mg PO Q6H PRN Nausea And Vomiting 12/27/24 03/20/25 tablet cyanocobalamin (vitamin B-12) 1,000 mcg SUBCUT .Q30D 01/18/25 03/20/25 1,000 mcg/mL injection solution ergocalciferol (vitamin D2) 1,250 50,000 unit PO Q7D 01/18/25 03/20/25 mcg (50,000 unit) capsule famotidine 20 mg tablet 20 mg PO BID 01/18/25 03/20/25 simvastatin 40 mg tablet 40 mg PO DAILY 01/18/25 03/20/25 hydralazine 50 mg tablet mg PO 03/20/25 03/20/25 Previous Rx's ?Medication ?Instructions ?Recorded glucometer testing kit #1 ea 09/18/22 glucometer testing kit #1 ea 09/18/22 lisinopril 40 mg tablet 40 mg PO DAILY #30 tabs 02/06/25 insulin degludec 100 unit/mL (3 25 unit (0.25 mL) SUBCUT QAM #15 mL 02/21/25 mL) subcutaneous pen (Tresiba FlexTouch U-100 insulin) gabapentin 800 mg tablet See Rx Instructions .Route 03/31/25 .COMPLEX #270 tabs glipizide 10 mg tablet, extended 10 mg PO DAILY #90 tabs 03/31/25 release 24 hr magnesium oxide 400 mg (241.3 mg 400 mg PO DAILY #90 tabs 03/31/25 magnesium) tablet metformin 1,000 mg tablet 1,000 mg PO BID #180 tabs 03/31/25 metoprolol tartrate 50 mg tablet 50 mg PO BID #180 tabs 03/31/25 rivaroxaban 10 mg tablet (Xarelto) 10 mg PO DAILY #90 tabs 03/31/25 amlodipine 10 mg tablet See Rx Instructions .Route 05/02/25 .COMPLEX #90 tabs fenofibrate 160 mg tablet See Rx Instructions .Route 05/02/25 .COMPLEX #90 tabs hydralazine 100 mg tablet See Rx Instructions .Route 05/25/25 .COMPLEX #90 tabs syringe with needle 3 mL 25 gauge #1 ea 05/25/25 x 1 (BD Luer-Beth Syringe) Allergies Allergy/AdvReac Type Severity Reaction Status Date / Time No Known Allergies Allergy Verified 02/13/25 10:02 Review of Systems Narrative: Constitutional symptoms: Negative except as documented in HPI. Skin symptoms: Negative except as documented in HPI. Eye symptoms: Negative except as documented in HPI. ENMT symptoms: Negative except as documented in HPI. Respiratory symptoms: Negative except as documented in HPI. Cardiovascular symptoms: Negative except as documented in HPI. Gastrointestinal symptoms: Negative except as documented in HPI. Genitourinary symptoms: Negative except as documented in HPI. Musculoskeletal symptoms: Negative except as documented in HPI. Neurologic symptoms: Negative except as documented in HPI. Psychiatric symptoms: Negative except as documented in HPI. Endocrine symptoms: Negative except as documented in HPI. PFSH ED PFSH: Medical History Obesity Acute hypoxemic respiratory failure COVID-19 NOEMI (acute kidney injury) Type 2 diabetes mellitus B12 deficiency Vitamin D deficiency GERD (gastroesophageal reflux disease) Atrial fibrillation Cholecystitis Abnormal transaminases Cholelithiasis Acute encephalopathy Acute cystitis Wound of right foot Type 2 diabetes mellitus without complications Obesity, unspecified Chronic osteoarthritis Bunion of right foot Encounter for counseling for care management of patient with chronic conditions and complex health needs using nurse-based model Seasonal allergies Gastro-esophageal reflux disease without esophagitis Neuropathy Dyslipidemia Chronic back pain Essential (primary) hypertension Surgical History Hx of knee surgery (~10/2000) left Family History Mother Cancer colon Father Cancer pancreatic Family/Other CAD (coronary artery disease) Social History Smoking and tobacco/nicotine status: never used tobacco/nicotine Second hand smoke exposure: No Alcohol intake: never Substance/Drug Use: never Lives independently: Yes Household members: significant other Marital status: Life Partner Current occupational status: retired Current gender identity: Female Physical Exam Narrative: EXAM NARRATIVE: General: Alert, no acute distress. Skin: Warm, dry. Head: Normocephalic, atraumatic. Neck: Supple, trachea midline. Eye: Extraocular movements are intact. Ears, nose, mouth and throat: mucosa moist. Cardiovascular: Regular, Normal peripheral perfusion. Respiratory: Lungs are clear to auscultation, respirations are non-labored, breath sounds are equal, Symmetrical chest wall expansion. Gastrointestinal: Soft, Nontender, Non distended Musculoskeletal: Normal ROM, no deformity. Neurological: Alert and oriented, No focal neurological deficit observed. Psychiatric: Cooperative, appropriate mood & affect. Course Vital Signs: Vital signs: Vital Signs Temperature 98.1 F 06/11/25 05:24 Pulse Rate 58 L 06/11/25 05:58 Respiratory Rate 14 06/11/25 05:58 Blood Pressure 146/83 06/11/25 05:58 Pulse Oximetry 95 06/11/25 05:58 Oxygen Delivery Me thod Room Air 06/11/25 05:58 MDM - Fall Medical Decision Making Medical decision making: Differential diagnosis including but not limited to and based on the above HPI, review of systems and physical exam: patient with fall and head injury. Subdural hematoma, subarachnoid hemorrhage, concussion, skull fracture. Orders placed to evaluate differential diagnosis based on the above differential, HPI and physical exam CT scan of the head was ordered. I reviewed the patient's medical record. Patient care transitioned to Dr. Reyes at shift change. Lab Data Radiology Impressions Head CT 06/11/25 05:27 IMPRESSION: No acute intracranial abnormality. Discharge Plan Discharge Patient Disposition: Home Clinical Impression: Laceration of scalp Qualifiers: Encounter type: initial encounter Qualified Code(s): S01.01XA - Laceration without foreign body of scalp, initial encounter Closed head injury Qualifiers: Encounter type: initial encounter Qualified Code(s): S09.90XA - Unspecified injury of head, initial encounter Condition: Stable Prescriptions: No Action hydralazine 50 mg tablet PO insulin degludec [Tresiba FlexTouch U-100] 100 unit/mL (3 mL) insulin pen 25 unit SUBCUT QAM Qty: 15 5RF magnesium oxide 400 mg (241.3 mg magnesium) tablet 400 mg PO DAILY Qty: 90 0RF metformin 1,000 mg tablet 1,000 mg PO BID Qty: 180 0RF glipizide 10 mg tablet extended release 24hr 10 mg PO DAILY Qty: 90 0RF Xarelto 10 mg tablet 10 mg PO DAILY Qty: 90 0RF metoprolol tartrate 50 mg tablet 50 mg PO BID Qty: 180 0RF gabapentin 800 mg tablet See Rx Instructions .ROUTE .COMPLEX Qty: 270 1RF Dose Instruction: TAKE ONE TABLET BY MOUTH THREE TIMES DAILY Rx Instructions: TAKE ONE TABLET BY MOUTH THREE TIMES DAILY amlodipine 10 mg tablet See Rx Instructions .ROUTE .COMPLEX Qty: 90 1RF Dose Instruction: TAKE ONE TABLET BY MOUTH DAILY Rx Instructions: TAKE ONE TABLET BY MOUTH DAILY fenofibrate 160 mg tablet See Rx Instructions .ROUTE .COMPLEX Qty: 90 1RF Dose Instruction: TAKE ONE TABLET BY MOUTH DAILY Rx Instructions: TAKE ONE TABLET BY MOUTH DAILY hydralazine 100 mg tablet See Rx Instructions .ROUTE .COMPLEX Qty: 90 2RF Dose Instruction: TAKE ONE TABLET BY MOUTH THREE TIMES DAILY Rx Instructions: TAKE ONE TABLET BY MOUTH THREE TIMES DAILY (DME) BD Luer-Beth Syringe 3 mL 25 gauge x 1 syringe See Rx Instructions .ROUTE .COMPLEX Qty: 1 5RF Dose Instruction: USE ONE SYRINGE MONTHLY TO INJECT B12 Rx Instructions: USE ONE SYRINGE MONTHLY TO INJECT B12 (DME) glucometer testing kit See Rx Instructions .Route .MEDSUPPLY Qty: 1 0RF Rx Instructions: Glucometer testing kit, check blood sugars 3 times daily -Lancets #100, strips #100 (DME) glucometer testing kit See Rx Instructions .Route .MEDSUPPLY Qty: 1 0RF Rx Instructions: Glucometer testing kit, check blood sugars 3 times daily, after meals based on sliding scale provided Lancets #100 Strips #100 oxycodone 15 mg tablet 15 mg PO Q4H PRN (Reason: Pain) levalbuterol tartrate 45 mcg/actuation HFA aerosol inhaler 2 puff INHALATION Q6H PRN (Reason: Shortness Of Breath) ondansetron 8 mg tablet,disintegrating 8 mg PO Q6H PRN (Reason: Nausea And Vomiting) simvastatin 40 mg tablet 40 mg PO DAILY famotidine 20 mg tablet 20 mg PO BID cyanocobalamin (vitamin B-12) 1,000 mcg/mL solution 1,000 mcg SUBCUT .Q30D ergocalciferol (vitamin D2) 1,250 mcg (50,000 unit) capsule 50,000 unit PO Q7D Rx Instructions: Monday lisinopril 40 mg tablet 40 mg PO DAILY Qty: 30 0RF Discharge Orders: Discharge ED (Routine); Ordered 06/11/25 Ordered By: Mark Reyes Referrals: Sheri Black FNP [Primary Care Provider, Family Practice] Patient Instructions: Opioid Safety, Pain Management, Patient Portal & Martin Instructions Activity Restrictions/Additional Instructions: Thank you [facility] choosing [facility] for your healthcare needs today. It is very important that you follow up as instructed or that you return to the Emergency Department should you have concerns or if your condition changes or worsens in any way. You are seen emergency room after a fall. CT of your head did not show any signs of intracranial bleeding. There is a small approximately 1 cm laceration in the right temporal area. You opted not to have the staple applied. It should heal fine either way avoid manipulation for the next few days as it may induce a little bit of bleeding. Apply small amount of [id number] topical antibiotic ointment to the area to assist in healing. Follow-up with your primary care doctor as needed. Print Language: Guyanese Sign Out Sign Out Data: Patient Sign Out occurred on 06/11/25 at 06:05. Patient's care was discussed, and care was transferred from Arabella Slade MD to Mark Reyes DO. Coding Level of Care Code ED Clinical Pharmacy Technician for Chg Fwd Documented by User: Mark Reyes DO 06/11/25 07:09 HPI - Fall General: Chief Complaint: Fall Stated Complaint: Fall w/head injury Time Seen by Provider: 06/11/25 05:24 Related Data Home Medications ?Medication ?Instructions ?Recorded ?Confirmed levalbuterol tartrate 45 2 puff inhalation Q6H PRN 07/01/22 03/20/25 mcg/actuation aerosol inhaler Shortness Of Breath oxycodone 15 mg tablet 15 mg PO Q4H PRN Pain 07/01/22 03/20/25 ondansetron 8 mg disintegrating 8 mg PO Q6H PRN Nausea And Vomiting 12/27/24 03/20/25 tablet cyanocobalamin (vitamin B-12) 1,000 mcg SUBCUT .Q30D 01/18/25 03/20/25 1,000 mcg/mL injection solution ergocalciferol (vitamin D2) 1,250 50,000 unit PO Q7D 01/18/25 03/20/25 mcg (50,000 unit) capsule famotidine 20 mg tablet 20 mg PO BID 01/18/25 03/20/25 simvastatin 40 mg tablet 40 mg PO DAILY 01/18/25 03/20/25 hydralazine 50 mg tablet mg PO 03/20/25 03/20/25 Previous Rx's ?Medication ?Instructions ?Recorded glucometer testing kit #1 ea 09/18/22 glucometer testing kit #1 ea 09/18/22 lisinopril 40 mg tablet 40 mg PO DAILY #30 tabs 02/06/25 insulin degludec 100 unit/mL (3 25 unit (0.25 mL) SUBCUT QAM #15 mL 02/21/25 mL) subcutaneous pen (Tresiba FlexTouch U-100 insulin) gabapentin 800 mg tablet See Rx Instructions .Route 03/31/25 .COMPLEX #270 tabs glipizide 10 mg tablet, extended 10 mg PO DAILY #90 tabs 03/31/25 release 24 hr magnesium oxide 400 mg (241.3 mg 400 mg PO DAILY #90 tabs 03/31/25 magnesium) tablet metformin 1,000 mg tablet 1,000 mg PO BID #180 tabs 03/31/25 metoprolol tartrate 50 mg tablet 50 mg PO BID #180 tabs 03/31/25 rivaroxaban 10 mg tablet (Xarelto) 10 mg PO DAILY #90 tabs 03/31/25 amlodipine 10 mg tablet See Rx Instructions .Route 05/02/25 .COMPLEX #90 tabs fenofibrate 160 mg tablet See Rx Instructions .Route 05/02/25 .COMPLEX #90 tabs hydralazine 100 mg tablet See Rx Instructions .Route 05/25/25 .COMPLEX #90 tabs syringe with needle 3 mL 25 gauge #1 ea 05/25/25 x 1 (BD Luer-Beth Syringe) Allergies Allergy/AdvReac Type Severity Reaction Status Date / Time No Known Allergies Allergy Verified 02/13/25 10:02 [facility] ED PFSH: Medical History Obesity Acute hypoxemic respiratory failure COVID-19 NOEMI (acute kidney injury) Type 2 diabetes mellitus B12 deficiency Vitamin D deficiency GERD (gastroesophageal reflux disease) Atrial fibrillation Cholecystitis Abnormal transaminases Cholelithiasis Acute encephalopathy Acute cystitis Wound of right foot Type 2 diabetes mellitus without complications Obesity, unspecified Chronic osteoarthritis Bunion of right foot Encounter for counseling for care management of patient with chronic conditions and complex health needs using nurse-based model Seasonal allergies Gastro-esophageal reflux disease without esophagitis Neuropathy Dyslipidemia Chronic back pain Essential (primary) hypertension Surgical History Hx of knee surgery (~10/2000) left Family History Mother Cancer colon Father Cancer pancreatic Family/Other CAD (coronary artery disease) Social History Smoking and tobacco/nicotine status: never used tobacco/nicotine Second hand smoke exposure: No Alcohol intake: never Substance/Drug Use: never Lives independently: Yes Household members: significant other Marital status: Life Partner Current occupational status: retired Current gender identity: Female Course Vital Signs: Vital signs: Vital Signs Temperature 98.1 F 06/11/25 05:24 Pulse Rate 58 L 06/11/25 05:58 Respiratory Rate 14 06/11/25 05:58 Blood Pressure 146/83 06/11/25 05:58 Pulse Oximetry 95 06/11/25 05:58 Oxygen Delivery Me thod Room Air 06/11/25 05:58 MDM - Fall Medical Decision Making Medical decision making: Differential diagnosis including but not limited to and based on the above HPI, review of systems and physical exam: patient with fall and head injury. Subdural hematoma, subarachnoid hemorrhage, concussion, skull fracture. Orders placed to evaluate differential diagnosis based on the above differential, HPI and physical exam CT scan of the head was ordered. I reviewed the patient's medical record. Patient care transitioned to Dr. Reyes at shift change. Care assumed from Dr. Slade at change of shift. CT of the head resulted as negative no sign of intracranial bleeding. Patient has approximately 1 cm laceration in the upper portion of the right parietal parietal region. No active bleeding. Does not gape. Offered to put a staple in patient would prefer not to. Offered a second time just prior to her being discharged by the nursing staff. She still would prefer not to get a heel adequately and either case. She can apply topical antibiotic ointment to the wound avoid manipulating the wound for the next few days. Did warn her that without the staple it may be more likely to bleed or ooze a little bit she is understanding this and still prefers not to have the staple applied Medical Records I reviewed the patient's medical records. Lab Data I reviewed the patient's lab results. Radiology Impressions Head CT 06/11/25 05:27 IMPRESSION: No acute intracranial abnormality. All radiology interpretation(s) finalized by discharge Discharge Plan Discharge Patient Disposition: Home Clinical Impression: Laceration of scalp Qualifiers: Encounter type: initial encounter Qualified Code(s): S01.01XA - Laceration without foreign body of scalp, initial encounter Closed head injury Qualifiers: Encounter type: initial encounter Qualified Code(s): S09.90XA - Unspecified injury of head, initial encounter Condition: Stable Prescriptions: No Action hydralazine 50 mg tablet PO insulin degludec [Tresiba FlexTouch U-100] 100 unit/mL (3 mL) insulin pen 25 unit SUBCUT QAM Qty: 15 5RF magnesium oxide 400 mg (241.3 mg magnesium) tablet 400 mg PO DAILY Qty: 90 0RF metformin 1,000 mg tablet 1,000 mg PO BID Qty: 180 0RF glipizide 10 mg tablet extended release 24hr 10 mg PO DAILY Qty: 90 0RF Xarelto 10 mg tablet 10 mg PO DAILY Qty: 90 0RF metoprolol tartrate 50 mg tablet 50 mg PO BID Qty: 180 0RF gabapentin 800 mg tablet See Rx Instructions .ROUTE .COMPLEX Qty: 270 1RF Dose Instruction: TAKE ONE TABLET BY MOUTH THREE TIMES DAILY Rx Instructions: TAKE ONE TABLET BY MOUTH THREE TIMES DAILY amlodipine 10 mg tablet See Rx Instructions .ROUTE .COMPLEX Qty: 90 1RF Dose Instruction: TAKE ONE TABLET BY MOUTH DAILY Rx Instructions: TAKE ONE TABLET BY MOUTH DAILY fenofibrate 160 mg tablet See Rx Instructions .ROUTE .COMPLEX Qty: 90 1RF Dose Instruction: TAKE ONE TABLET BY MOUTH DAILY Rx Instructions: TAKE ONE TABLET BY MOUTH DAILY hydralazine 100 mg tablet See Rx Instructions .ROUTE .COMPLEX Qty: 90 2RF Dose Instruction: TAKE ONE TABLET BY MOUTH THREE TIMES DAILY Rx Instructions: TAKE ONE TABLET BY MOUTH THREE TIMES DAILY (DME) BD Luer-Beth Syringe 3 mL 25 gauge x 1 syringe See Rx Instructions .ROUTE .COMPLEX Qty: 1 5RF Dose Instruction: USE ONE SYRINGE MONTHLY TO INJECT B12 Rx Instructions: USE ONE SYRINGE MONTHLY TO INJECT B12 (DME) glucometer testing kit See Rx Instructions .Route .MEDSUPPLY Qty: 1 0RF Rx Instructions: Glucometer testing kit, check blood sugars 3 times daily -Lancets #100, strips #100 (DME) glucometer testing kit See Rx Instructions .Route .MEDSUPPLY Qty: 1 0RF Rx Instructions: Glucometer testing kit, check blood sugars 3 times daily, after meals based on sliding scale provided Lancets #100 Strips #100 oxycodone 15 mg tablet 15 mg PO Q4H PRN (Reason: Pain) levalbuterol tartrate 45 mcg/actuation HFA aerosol inhaler 2 puff INHALATION Q6H PRN (Reason: Shortness Of Breath) ondansetron 8 mg tablet,disintegrating 8 mg PO Q6H PRN (Reason: Nausea And Vomiting) simvastatin 40 mg tablet 40 mg PO DAILY famotidine 20 mg tablet 20 mg PO BID cyanocobalamin (vitamin B-12) 1,000 mcg/mL solution 1,000 mcg SUBCUT .Q30D ergocalciferol (vitamin D2) 1,250 mcg (50,000 unit) capsule 50,000 unit PO Q7D Rx Instructions: Monday lisinopril 40 mg tablet 40 mg PO DAILY Qty: 30 0RF Discharge Orders: Discharge ED (Routine); Ordered 06/11/25 Ordered By: Mark Reyes Referrals: Sheri Black FNP [Primary Care Provider, Family Practice] Patient Instructions: Opioid Safety, Pain Management, Patient Portal & Martin Instructions Activity Restrictions/Additional Instructions: Thank you for choosing [facility] for your healthcare needs today. It is very important that you follow up as instructed or that you return to the Emergency Department should you have concerns or if your condition changes or worsens in any way. You are seen emergency room after a fall. CT of your head did not show any signs of intracranial bleeding. There is a small approximately 1 cm laceration in the right temporal area. You opted not to have the staple applied. It should heal fine either way avoid manipulation for the next few days as it may induce a little bit of bleeding. Apply small amount of [id number] topical antibiotic ointment to the area to assist in healing. Follow-up with your primary care doctor as needed. Print Language: Guyanese Sign Out Sign Out Data: Patient Sign Out occurred on 06/11/25 at 06:05. Patient's care was discussed, and care was transferred from Arabella Slade MD to Mark Reyes DO. Coding Level of Care Code ED Clinical Pharmacy Technician for Jorje Blackmon
[2025-06-11 05:58] VITALS: BP 146/83; PULSE 58; RESP 14; O2SAT 95
[2025-06-11 07:07] VITALS: BP 142/108; PULSE 54; O2SAT 98
== END 2025-06-11 07:19 | disposition home or self-care (01) ==
PROVIDERS: Emergency Provider Family Medicine; PCP Nurse Practitioner Family
DX: S01.01XA Laceration without foreign body of scalp, initial encounter (principal); S09.8XXA Other specified injuries of head, initial encounter; Z79.4 Long term (current) use of insulin; Z79.84 Long term (current) use of oral hypoglycemic drugs; E11.9 Type 2 diabetes mellitus without complications; E78.5 Hyperlipidemia, unspecified; I10 Essential (primary) hypertension; W01.0XXA Fall on same level from slipping, tripping and stumbling without subsequent striking against object, initial encounter
CPT/HCPCS: 70450; 99284

== ENCOUNTER 2025-06-23 11:53 | Outpatient (CLI) | payer MEDICARE, MEDICAID, SELFPAY ==
--- NOTE | 2025-06-23 12:05 | XRR_ITS ---
PROCEDURE INFORMATION: Exam: XR Lumbosacral Spine Exam date and time: 06/23/2025 12:16 PM Age: 75 years old Clinical indication: Injury or trauma; Blunt trauma (contusions or hematomas); Injury date: 06/11/2025; Injury details: Fall xjuly 30th pain in lower back difficulty standing; Additional info: M54.50 - low back pain, unspecified TECHNIQUE: Imaging protocol: Radiologic exam of the lumbosacral spine. Views: 2 or 3 views. COMPARISON: CR XR lumbar spine 2-3V* [id number] 08/16/2023 10:43 AM FINDINGS: Bones/joints: Chronic L3 compression deformity. Intervertebral disc narrowing and facet hypertrophic changes are seen at multiple levels. No facet subluxation. Levoscoliosis of the mid-lumbar spine. Soft tissues: Unremarkable. XR/XR lumbar spine 2-3V* [id number] IMPRESSION: 1. No acute fracture. 2. Multilevel spondylotic changes are seen as described.
== END 2025-06-23 11:54 | disposition home or self-care (01) ==
PROVIDERS: PCP Nurse Practitioner Family; Visit Provider Family Medicine
DX: S39.92XD Unspecified injury of lower back, subsequent encounter (principal); M41.9 Scoliosis, unspecified; M43.8X6 Other specified deforming dorsopathies, lumbar region; W19.XXXD Unspecified fall, subsequent encounter
CPT/HCPCS: 72100

== ENCOUNTER 2025-06-29 16:41 | Emergency (ER) | payer OTHER, MEDICAID, SELFPAY ==
--- OUTSIDE RECORDS SUMMARY | 2025-06-29 16:54 | XMS_ITS | Encounter Summary ---
Author Organization [facility] Address 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 Dx) Social History Tobacco Use Types Packs/Day Years Used Date Smoking Tobacco: Never Passive Smoke Exposure: Never Smokeless Tobacco: Never Alcohol Use Standard Drinks/Week Comments Never 0 (1 standard drink = 0.6 oz pur e alcohol) Comments No Sex and Gender Information Value Date Recorded Sex Assigned at Not on file 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 Pt stated she has discussed with provider increasing quantity for a short period of time. Julia PALOMINO * Telephone Encounter - Lily Cuello - 06/24/2025 11:00 AM CDT Copied from [facility] #[id number]. Topic: Medication Request >> Jun 24, 2025 10:57 AM Lily Ricketts wrote: Caller Name: Elena Salinas Callback Number: [phone] (home) Medication (Ask patient/caregiver to spell if possible): Oxycodone Note: All medication prescriptions can be requested using one CRM Caller is requesting: Medication Question from Patient (not involving new prescription or refill) Preferred Pharmacy: [facility] Call Notes: Patient said she received a larger amount than she had thought she was getting. She wasn't sure if this was intentional? Asking for clarification. Is there an encounter open? Yes * Telephone Encounter - Ramona Galarza DO - 06/23/2025 8:22 PM CDT I refilled her pain meds. I gave her a small amount of toradol. Tell her she can't take these skilled nursing because she is on a blood thinner and can cause her blood to get too thin. * Telephone Encounter - Julia Jaramillo LPN - 06/23/2025 1:10 PM CDT 1:10 PM 06/23/2025 Date of last visit addressing condition(s) being treated: 06/18/25 LFD 05/23/25 Date of next visit in this department: 09/25/2025 Correct Pharmacy: Yes Recent Visits Date Type Provider Dept 06/18/25 Office Visit Ramona Galarza DO [facility] [place] 03/18/25 Office Visit Sandrine Braga FNP [facility] [place] 01/16/25 Office Visit Ramona Galarza, DO [facility] [place] 09/19/24 Office Visit Ramona Galarza, DO [facility] [place] 05/22/24 Office Visit Ramona Galarza, DO [facility] [place] Showing recent visits within past 400 days with a meds authorizing provider and meeting all other requirements Future Appointments Date Type Provider Dept 09/25/25 Appointment Ramona Galarza, DO [facility] [place] 12/25/25 Appointment Ramona Galarza, DO [facility] [place] 03/25/26 Appointment Ramona Galarza, DO [facility] Showing future appointments within next 400 days with a meds authorizing provider and meeting all other requirements Check and review of the [place] PDMP performed on 06/23/2025 at 1:10 PM.. No suspicious activity found. Julia PALOMINO * Telephone Encounter - Halie Gong - 06/23/2025 8:50 AM CDT Copied from [facility] #[id number]. Topic: Medication Request >> Jun 23, 2025 8:47 AM Halie Simms wrote: Caller Name: pt Callback Number: [phone] Medication (Ask patient/caregiver to spell if possible): 1. Oxycodone 15mg 2. Oxycodone 7.5mg Patient is asking if Toradol comes in pill form because the injection really helped her. Note: All medication prescriptions can be requested using one [facility] Preferred Pharmacy: [facility] [address] Call Notes: Refill requests - Please call patient when meds are called in. She is out of meds. Did caller contact the correct clinic for prescribing provider? Yes Ask caller if the refill is for a controlled medication. Is this for a controlled Medication? Yes Is there an encounter open? Yes documented in this encounter Plan of Treatment Upcoming Encounters Date Type Department Care Team (Late st Contact Info) Description 09/25/2025 1:00 PM CANNERY TENDER ENGINEER Office Visit [facility] [address] [facility] [place] [phone] Ramona Galarza, DO [address] [place] [phone] 12/25/2025 1:00 PM CANNERY TENDER ENGINEER Office Visit [facility] [address] [facility] [place] [phone] Ramona Galarza, DO [address] [facility] [place] [phone] 03/25/2026 1:20 PM CDT Office Visit [facility] [address] [facility] [place] [phone] Ramona Galarza, DO [address] [place] [phone] documented as of this encounter Visit Diagnoses Diagnosis Chronic midline low back pain with bilateral sciatica- Primary documented in this encounter Care Teams Transformation Specialist Relationship Specialty Start Date End Date Ramona Galarza DO [address] [facility] [place] [phone] PCP - General Family Practice 02/12/24 documented as of this encounter
--- OUTSIDE RECORDS SUMMARY | 2025-06-29 16:54 | XMS_ITS | Clinical Summary ---
Author Organization [facility] Address [address] [place] [address] Care Team Providers Care Miniature Set Designer Name Role Phone Unavailable Primary Care Provider [...] mouth daily. Active mometasone (NASONEX) 50 mcg/actuation [place], Non-Aerosol daily. 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
--- OUTSIDE RECORDS SUMMARY | 2025-06-29 16:54 | XMS_ITS | Encounter Summary ---
Author Organization [facility] Address [address] [place] [address] Care Team Providers Care Ekg Manager Name Role Phone Ramona Galarza DO Primary Care Provider [phone] Reason for Visit * Reason Comments Provider Call Encounter Details Date Type Department Care Team (Late st Contact Info) Description 06/10/2025 Telephone [facility] Medicine [place] [address] [place] [address] Ramona Galarza DO [address] [place] [address] Provider Call Social History Tobacco Use Types Packs/Day Years Used Date Smoking Tobacco: Never Passive Smoke Exposure: Never Smokeless Tobacco: Never Alcohol Use Standard Drinks/Week Comments Never 0 (1 standard drink = 0.6 oz pur e alcohol) Comments No Sex and Gender Information Value Date Recorded Sex Assigned at Not on file 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 Topic: [id number] Call >> Jun 10, 2025 3:54 PM Mike Hermosillo wrote: Caller is requesting to speak with Clinical Care Team. Caller Name: [facility] Callback Number: [phone] Is the caller a Physician, Nurse Practitioner or Physician Calibration Technician? No Call Notes: sent over a clinical recommendation on 05/02 and they have since resent it. Calling to get an update on this? Is this addressing an immediate patient care need? No documented in this encounter Plan of Treatment Upcoming Encounters Date Type Department Care Team (Late st Contact Info) Description 09/25/2025 1:00 PM FASHION ILLUSTRATOR Office Visit [facility] [address] [place] [facility] [place] [address] Ramona Galarza, DO [address] [place] [phone] 12/25/2025 1:00 PM FASHION ILLUSTRATOR Office Visit [facility] [address] [place] [facility] [place] [address] Ramona Galarza, DO [address] [facility] [place] [address] 03/25/2026 1:20 PM CDT Office Visit [facility] [address] [place] [facility] [phone] Ramona Galarza, DO [address] [facility] [place] [address] documented as of this encounter Visit Diagnoses Not on filedocumented in this encounter Care Teams Ekg Manager Relationship Specialty Start Date End Date Ramona Galarza DO [address] [facility] [place] [phone] PCP - General Family Practice 02/12/24 documented as of this encounter
--- OUTSIDE RECORDS SUMMARY | 2025-06-29 16:54 | XMS_ITS | Clinical Summary ---
Author Organization [facility] Address [address] [place] [address] Care Team Providers Care Supervisor Compressed Yeast Name Role Phone Ramona Galarza DO Primary Care Provider [phone] Allergies No known active allergies Medications loratadine/pseu [...] mouth 2 times daily. 60 Tablet 1 Active naloxone (NARCAN) 4 mg/spray [place], Non-Aerosol EMERGENCY USE ONLY: Administer 1 spray (4 mg) in one nostril one time. May repeat in alternating nostrils every 2-3 min until responsive or EMS arrives. 2 Each 3 024 Active Tresiba FlexTouch U-100 100 unit/mL (3 mL) pen syringe Inject 15 Units by subcutaneous injection daily with breakfast. Active Xarelto 10 mg Tablet Take 10 mg by mouth daily with supper. Active amLODIPine (NORVASC) 5 mg tablet Take 10 mg by mouth daily. Active ondansetron (ZOFRAN ODT) 8 mg Tablet, Rapid Dissolve DISSOLVE ONE TABLET ON TOP OF TONGUE THEN SWALLOW WITH SALIVA EVERY 6 HOURS NEEDED 60 Tablet 6 025 Active hydrALAZINE (APRESOLINE) 50 mg tabletIndicatio ns:Essential hypertension Take 1 Tablet (50 mg) by mouth 3 times daily. 90 Tablet 025 Active Additional Information Patient taking differently: 100 mgOral THREE TIMES DAILY, Reported on 06/18/2025 levalbuterol HFA (XOPENEX HFA) 45 mcg/Actuation HFA Aerosol Inhaler INHALE TWO PUFFS INTO LUNGS EVERY 6 HOURS NEEDED FOR SHORTNESS OF BREATH 15 Gram 93 025 Active oxyCODONE (ROXICODONE) 15 mg tabletIndicatio ns:Chronic midline low back pain with bilateral sciatica Take 1 Tablet (15 mg) by mouth every 4 hours as needed for Pain, Moderate. Max Daily Amount: 90 mg 180 Tablet Active oxyCODONE-aceta minophen (PERCOCET) 7.5-325 mg TabletIndicatio ns:Chronic midline low back pain with bilateral sciatica Take 1 Tablet by mouth 2 times daily as needed for Pain, Moderate. Max Daily Amount: 2 Tablets 60 Tablet Active ketorolac tromethamine (TORADOL) 10 mg tablet Take 1 Tablet (10 mg) by mouth every 6 hours as needed for Pain. Short term only. 20 Tablet Active levalbuterol HFA (XOPENEX HFA) 45 mcg/Actuation HFA Aerosol Inhaler INHALE TWO PUFFS INTO LUNGS EVERY 6 HOURS NEEDED FOR SHORTNESS OF BREATH 15 Gram 93 024 2024 Discontinued oxyCODONE (ROXICODONE) 15 mg tabletIndicatio ns:Lumbago with sciatica, right side Take 1 Tablet (15 mg) by mouth every 4 hours as needed for Pain, Moderate. Do not fill until 02/16/2025 Max Daily Amount: 90 mg 180 Tablet 025 2024 Discontinued oxyCODONE (ROXICODONE) 15 mg tabletIndicatio ns:Lumbago with sciatica, right side Take 1 Tablet (15 mg) by mouth every 4 hours as needed for Pain, Moderate. Do not fill until 03/18/2025 Max Daily Amount: 90 mg 180 Tablet 025 2024 Discontinued oxyCODONE (ROXICODONE) 15 mg tabletIndicatio ns:Lumbago with sciatica, right side Take 1 Tablet (15 mg) by mouth every 4 hours as needed for Pain, Moderate. Do not fill until 04/18/2025 Max Daily Amount: 90 mg 180 Tablet 025 2024 Discontinued oxyCODONE-aceta minophen (PERCOCET) 7.5-325 mg TabletIndicatio ns:Lumbago with sciatica, right side,Chronic midline low back pain with bilateral sciatica Take 1 Tablet by mouth 2 times daily as needed for Pain, Moderate. Max Daily Amount: 2 Tablets 60 Tablet 025 2024 Discontinued oxyCODONE-aceta minophen (PERCOCET) 7.5-325 mg TabletIndicatio ns:Lumbago with sciatica, right side,Chronic midline low back pain with bilateral sciatica Take 1 Tablet by mouth 2 times daily as needed for Pain, Moderate. Do not fill until 04/18/2025 Max Daily Amount: 2 Tablets 60 Tablet 025 2024 Discontinued oxyCODONE-aceta minophen (PERCOCET) 7.5-325 mg TabletIndicatio ns:Lumbago with sciatica, right side,Chronic midline low back pain with bilateral sciatica Take 1 Tablet by mouth 2 times daily as needed for Pain, Moderate. Do not fill until 05/18/2025 Max Daily Amount: 2 Tablets 60 Tablet 025 2024 Discontinued oxyCODONE (ROXICODONE) 15 mg tabletIndicatio ns:Lumbago with sciatica, right side Take 1 Tablet (15 mg) by mouth every 4 hours as needed for Pain, Moderate. Do not fill until 05/18/2025 Max Daily Amount: 90 mg 180 Tablet 025 2024 Discontinued ketorolac (TORADOL) 30 mg/mL (1 mL) SolutionIndicat ions:Injury of low back, subsequent encounter Inject 2 mL (60 mg) by intramuscular injection one time only for 1 dose. 1 mL 025 2024 Discontinued Hospital, Clinic, or Other Facility Administered Medication Ordered Dose Route Frequency Start Date End Date Status ketorolac (TORADOL) injection 30 mgIndications:Injury of low back, subsequent encounter 30 mg IM ONE TIME ONLY 06/18/2025 06/18/2025 Ended Active Problems Problem Noted Date Diagnosed Date Vitamin B12 deficiency (non anemic) 06/24/2025 Morbid obesity with body mass index of 40.0-49.9 01/26/2025 Frail elderly 01/26/2025 Chronic respiratory failure with hypoxia and hyp ercapnia 02/09/2024 Traumatic subconjunctival hemorrhage of right ey e 02/08/2024 History of subarachnoid hemorrhage 02/07/2024 Essential hypertension 10/06/2020 Mixed hyperlipidemia 10/06/2020 Chronic midline low back pain with bilateral sci atica 10/06/2020 Type 2 diabetes mellitus wit hout complication, without long-term current use of insulin 10/06/2020 Bilateral lower extremity edema 10/06/2020 Resolved Problems Problem Noted Date Diagnosed Date Resolved Date Hypertensive urgency 02/07/2024 025 Periorbital hematoma 02/07/2024 025 Severe obesity (BMI 35.0-39. 9) with comorbidity 10/06/2020 01/26/2025 Encounters Date Type Department Care Team Description 06/23/2025 Refill [facility] [address] [place] [address] Ramona Galarza, Chronic midline low back pain with bilateral sciatica (Primary Dx) 06/19/2025 Results Follow-Up [facility] [address] [place] [address] Ramona Galarza DO CBC WITH DIFFERENTIAL, COMPREHENSIVE METABOLIC PANEL, TSH, Additional followed-up results: 4 06/19/2025 Telephone [facility] [address] [place] [address] Ramona Galarza, Medication Assistance 06/18/2025 2:20 PM CDT Office Visit [facility] [address] [place] [address] Ramona Galarza DO Injury of low back, subsequent encounter (Primary Dx); Type 2 diabetes mellitus without complication, without long-term current use of insulin ([facility]); Chronic midline low back pain with bilateral sciatica; Essential hypertension; Bilateral lower extremity edema; Mixed hyperlipidemia; Morbid obesity with body mass index of 40.0-49.9 ([facility]/HCC); Frail elderly; Vitamin B12 deficiency (non anemic) 06/10/2025 Telephone [facility] [address] [place] [address] Ramona Galarza DO Provider Call 06/09/2025 Refill [facility] [address] [place] [address] Ramona Galarza DO 04/10/2025 Orders Only [facility] [address] [place] [address] Ramona Galarza, Type 2 diabetes mellitus without complication, without long-term current use of insulin ([facility]) from Last 3 Months Immunizations Immunization Administration [...] on file Legal Sex Female 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 Gender Identity Not on file Sexual Orientation Not on file Last Filed Vital Signs Vital Sign Reading Time Taken Comments Blood Pressure 126/78 06/18/2025 2:18 PM CDT Pulse 64 06/18/2025 2:18 PM CDT Temperature 36.7 C (98 F) 06/18/2025 2:18 PM CDT Respiratory Rate 18 06/18/2025 2:18 PM CDT Oxygen Saturation 90% 06/18/2025 2:18 PM CDT Inhaled Oxygen Concentration - - Weight 96.2 kg (212 lb) 06/18/2025 2:18 PM CDT Height 157.5 cm (5' 2 ) 06/18/2025 2:18 PM CDT Body Mass Index 38.78 06/18/2025 2:18 PM CDT Plan of Treatment Upcoming Encounters Date Type Department Care Team (Late st Contact Info) Description 09/25/2025 1:00 PM 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 Office Visit [facility] [address] [place] [address] Ramona Galarza DO [address] [place] [facility] [place] [phone] 12/25/2025 1:00 PM 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 Office Visit [facility] [address] [place] [facility] [phone] Michell, Ramona L, DO [address] [place] [facility] [place] [phone] 03/25/2026 1:20 PM CDT Office Visit [facility] [address] [place] [facility] [phone] Michell, Ramona L, DO [address] [place] [facility] [place] [phone] Health Maintenance Due Date Last Done Comments DTAP/TDAP/TD VACCINES (1 - Tdap) 1970 PNEUMOCOCCAL VACCINE 50+ YEA RS (1 of 2 - PCV) 1970 COLORECTAL SCREENING 1996 Colorectal Cancer Screening 1996 FIT-DNA Q 3 years 1996 FIT/FOBT Q 1 year 1996 Flex Sig/CT Colonography Q 5 years 1996 ZOSTER VACCINE (1 of 2) 2001 RSV VACCINE (60+ or ) (1 - Risk 60-74 years 1-dose series) 2011 BREAST CANCER SCREENING 02/20/2018 02/20/2017 OSTEOPOROSIS SCREENING 02/20/2022 02/20/2017 DIABETES ANNUAL RETINAL EXAM 12/17/202202/2022, 12/14/2020, 12/14/2020, Additional history exists COVID-19 Vaccine ( - 2023-2 5 season) 2024 07/15/2021, 06/17/2021 [place] Preventative Visit/Annual Wellness Visit 11/13/2024 09/19/2024, 08/21/2023, 02/17/2022 INFLUENZA VACCINE (#1) 2025 , 08/21/2023, 08/19/2022, Additional history exists Traditional Medicare (ACO) A nnual Wellness Visit 09/20/2025 09/19/2024, 08/21/2023, 02/17/2022 DIABETES HBA1C Q 6 MONTHS 12/19/20252024, 02/06/2024, 10/17/2023, Additional history exists DIABETES ANNUAL FOOT EXAM 01/16/20262024, 09/19/2024, 05/22/2024, Additional history exists DIABETES MICROALBUMIN ANNUAL SCREEN 06/18/2026 06/18/2025, 09/19/2024, 01/27/2021 DIABETES: A1C (Auto Order) 06/18/202606/18, 02/06/2024, 10/17/2023, Additional history exists LDL CHOLESTEROL ANNUAL 06/18/2026 , 08/24/2021, 01/27/2021, Additional history exists KHE eGFR (Auto Order) Completed 06/18/2025 , 02/09/2024, 02/07/2024 KHE uACR (Auto Order) Completed 06/18/2025, 024 Procedures Procedure Name Priority Date/Time Associated Diagnosis Comments MICROALBUMIN/CREATININ E RATIO, RANDOM UR Routine 06/18/2025 3:36 PM CDT Type 2 diabetes mellitus without complication, without long-term current use of insulin ([facility]) VITAMIN B12 LEVEL Routine 06/18/2025 2:4 9 PM CDT Type 2 diabetes mellitus without complication, without long-term current use of insulin (CMS/HCC) Vitamin B12 deficiency (non anemic) HEMOGLOBIN A1C Routine 06/18/2025 2:49 PM CDT Type 2 diabetes mellitus without complication, without long-term current use of insulin (CMS/[facility]) LIPID PANEL Routine 06/18/2025 2:49 PM CDT Type 2 diabetes mellitus without complication, without long-term current use of insulin (CMS/[facility]) TSH Routine 06/18/2025 2:49 PM CDT Type 2 diabetes mellitus without complication, without long-term current use of insulin (CMS/HCC) COMPREHENSIVE METABOLIC PANEL Routine 06/18/2025 2:49 PM CDT Type 2 diabetes mellitus without complication, without long-term current use of insulin (CMS/HCC) CBC WITH DIFFERENTIAL Routine 06/18/2025 2:49 PM CDT Type 2 diabetes mellitus without complication, without long-term current use of insulin (CMS/[facility]) HM DIABETES EYE EXAM Routine 12/14/2020 from Last 3 Months or Most Recently Relevant to Health Maintenance Results * (ABNORMAL) MICROALBUMIN/CREATININE RATIO, RANDOM UR (06/18/2025 3:36 PM CDT) CREATININE, URINE 89 20 - 275 mg/dL [facility] ALBUMIN, URINE 9.9 See Note: mg/dL [facility] Comment: Reference Range: Reference Range Not established ALB/CREAT RATIO, URINE 111(H) <30 mg/g creat [facility] Comment: The ADA defines abnormalities in [...] category. FASTING:UNKNOWN FASTING: UNKNOWN Test Performed at: [facility] [address] [address] Cody Faith MD Urine URINE SPECIMEN OBTAINED BY CLEAN CATCH PROCEDURE / Unknown 06/18/2025 3:36 PM CDT 06/19/2025 3:15 AM CDT us Ramona Galarza DO URINE ORDERABLES Final Resu lt [facility] [phone] [facility] [address] [address] * (ABNORMAL) CBC WITH DIFFERENTIAL (06/18/2025 2:49 PM CDT) [facility] WBC 10.3 3.8 - 10.8 Thousand/u L [facility] RBC 4.53 3.80 - 5.10 Million/uL [facility] HEMOGLOBIN 13.2 11.7 - 15.5 g/dL [facility] HEMATOCRIT 42.2 35.0 - 45.0 % [facility] MCV 93.2 80.0 - 100.0 fL [facility] MCH 29.1 27.0 - 33.0 pg [facility] MCHC 31.3(L) 32.0 - 36.0 g/dL [facility] Comment: For adults, a slight decrease in the calculated MCHC value (in the range of 30 to 32 g/dL) is most likely not clinically significant; however, it should be interpreted with caution in correlation with other red cell parameters and the patient's clinical condition. RDW 14.2 11.0 - 15.0 % [facility] PLATELETS 354 140 - 400 Thousand/u L [facility] MPV 10.3 7.5 - 12.5 fL [facility] NEUTROPHIL ABSOLUTE 5,871 1,500 - 7,800 cells/uL [facility] LYMPHOCYTE ABSOLUTE 3,286 850 - 3,900 cells/uL [facility] MONOCYTE ABSOLUTE 917 200 - 950 cells/uL [facility] EOSINOPHIL ABSOLUTE 165 15 - 500 cells/uL [facility] BASOPHILS ABSOLUTE 62 0 - 200 cells/uL [facility] NEUTROPHIL 57 % [facility] LYMPHOCYTES 31.9 % [facility] MONOCYTE 8.9 % [facility] EOSINOPHILS 1.6 % [facility] BASOPHILS 0.6 % [facility] Comment: FASTING:UNKNOWN FASTING: UNKNOWN Test Performed at: [facility] [address] [place] [address] Cody Faith MD Blood 06/18/2025 2:49 PM CDT 06/18/2025 2:49 PM CDT Ramonameryl Galarza DO HEMATOLOGY ORDERABLES Final Result Performing Organization Address [facility] Co de Phone Number [facility] [phone] [facility] [address] [place] [address] * TSH (06/18/2025 2:49 PM CDT) [facility] TSH 1.80 0.40 - 4.50 mIU/L [facility] Comment: Test Performed at: [address] [address] Cody Faith MD Blood 06/18/2025 2:49 PM CDT 06/18/2025 2:49 PM CDT Ramonameryl Galarza DO CHEMISTRY ORDERABLES Final Result Performing Organization Address [facility] de Phone Number [facility] [phone] [facility] [address] * (ABNORMAL) HEMOGLOBIN A1C (06/18/2025 2:49 PM CDT) [facility] HEMOGLOBIN A1C 6.3(H) <5.7 % [facility] Comment: For someone without known diabetes, a hemoglobin A1c value between 5.7% and 6.4% is consistent with prediabetes and should be confirmed with a follow-up test. For someone with known diabetes, a value <7% indicates that their diabetes is well controlled. A1c targets should be individualized based on duration of diabetes, age, comorbid conditions, and other considerations. This assay result is consistent with an increased risk of diabetes. Currently, no consensus exists regarding use of hemoglobin A1c for diagnosis of diabetes for children. ESTIMATED AVERAGE GLUCOSE (MG/DL) 134 mg/dL [facility] ESTIMATED AVERAGE GLUCOSE (MMOL/L) 7.4 mmol/L [facility] Comment: FASTING:UNKNOWN FASTING: UNKNOWN Test Performed at: [address] [address] [facility] [place] [address] Cody Faith MD Blood 06/18/2025 2:49 PM CDT 06/18/2025 2:49 PM CDT [facility] CHEMISTRY ORDERABLES Final Result Performing Organization Address [facility] Co de Phone Number [facility] [phone] [facility] [address] [facility] [place] [address] * VITAMIN B12 LEVEL (06/18/2025 2:49 PM CDT) Pathologist [facility] VITAMIN B12 383 200 - 1100 pg/mL [facility] Comment: Please Note: Although the reference range for vitamin B12 is 200-1100 pg/mL, it has been reported that between 5 and 10% of patients with values between 200 and 400 pg/mL may experience neuropsychiatric and hematologic abnormalities due to occult B12 deficiency; less than 1% of patients with values above 400 pg/mL will have symptoms. Test Performed at: [facility] [employer] [address] Cody Faith MD Blood 06/18/2025 2:49 PM CDT 06/18/2025 2:49 PM CDT Ramona Galarza CHEMISTRY ORDERABLES Final Result Performing Organization Address [facility] Co de Phone Number [facility] [phone] [facility] [address] [facility] [place] [address] * (ABNORMAL) LIPID PANEL (06/18/2025 2:49 PM CDT) Pathologist [facility] CHOLESTEROL 172 <200 mg/dL [facility] HDL 51 > OR = 50 mg/dL [facility] TRIGLYCERIDE 184(H) <150 mg/dL [facility] LDL CALCULATED 93 mg/dL (calc) [facility] Comment: Reference range: <100 Desirable range <100 mg/dL for primary prevention; <70 mg/dL for patients with CHD or diabetic patients with > or = 2 CHD risk factors. LDL-C is now calculated using the Stewart calculation, which is a validated novel method providing better accuracy than the Friedewald equation in the estimation of LDL-C. Da ALEJANDRA et al. AMY. 2013;310(19): 9159-7257 (http://education.[employer]/faq/MPR385) CHOL/HDL RATIO 3.4 <5.0 (calc) [facility] NON-HDL CHOLESTEROL 121 <130 mg/dL (calc) [facility] Comment: For patients with diabetes plus 1 major ASCVD risk factor, treating to a non-HDL-C goal of <100 mg/dL (LDL-C of <70 mg/dL) is considered a therapeutic option. Test Performed at: [facility] [address] [place] [address] Cody Faith MD Blood 06/18/2025 2:49 PM CDT 06/18/2025 2:49 PM CDT us Ramona Galarza DO CHEMISTRY ORDERABLES Final Result [facility] [phone] [employer] [address] * COMPREHENSIVE METABOLIC PANEL (06/18/2025 2:49 PM CDT) GLUCOSE 67 65 - 99 mg/dL [facility] Comment: Fasting reference interval BUN 25 7 - 25 mg/dL [facility] CREATININE 0.98 0.60 - 1.00 mg/dL [facility] GFR 61 > OR = 60 mL/min/1. 73m2 [facility] BUN/CREAT RATIO SEE NOTE: 6 (calc) [facility] Comment: Not Reported: BUN and Creatinine are within reference range. SODIUM 140 135 - 146 mmol/L [facility] POTASSIUM 4.7 3.5 - 5.3 mmol/L [facility] CHLORIDE 105 98 - 110 mmol/L [facility] CO2 28 20 - 32 mmol/L [facility] CALCIUM 9.5 8.6 - 10.4 mg/dL [facility] TOTAL PROTEIN 7.0 6.1 - 8.1 g/dL [facility] ALBUMIN 4.3 3.6 - 5.1 g/dL [facility] GLOBULIN 2.7 1.9 - 3.7 g/dL (calc) [facility] ALBUMIN/GLOBULIN RATIO 1.6 1.0 - 2.5 (calc) [facility] BILIRUBIN TOTAL 0.3 0.2 - 1.2 mg/dL [facility] ALKALINE PHOSPHATASE 57 37 - 153 U/L [facility] AST 14 10 - 35 U/L [facility] ALT 12 6 - 29 U/L [facility] Comment: FASTING:UNKNOWN FASTING: UNKNOWN Test Performed at: [facility] [id number] [place] [address] Cody Faith MD Blood 06/18/2025 2:49 PM CDT 06/18/2025 2:49 PM CDT Ramona Galarza DO CHEMISTRY ORDERABLES Final Result [facility] [phone] [address] * DIABETES EYE EXAM (12/14/2020) us Abstract Provider HEALTH MAINTENANCE Final Resul t from Last 3 Months or Most Recently Relevant to Health Maintenance Insurance MEDICAID [facility] DUAL COMPLETE PPO DSNP [facility] [id number] Advance Directives For more information, please contact: [phone] * Full Code (Latest Code Status on File) Date Activated Date Inactivated Comments 02/07/2024 11:36 PM 02/10/2024 1:11 PM Care Teams Supervisor Compressed Yeast Relationship Specialty Start Date End Date Ramona Galarza DO [address] [place] [phone] PCP - General Family Practice 02/12/24
--- OUTSIDE RECORDS SUMMARY | 2025-06-29 16:54 | XMS_ITS | Encounter Summary ---
Author Organization [facility] Address [address] [place] [address] Care Team Providers Care Fishing Worker Name Role Phone Ramona Galarza DO Primary Care Provider [phone] Encounter Details Date Type Department Care Team (Latest Contact Info) Description 06/19/2025 Results Follow-Up [facility] [address] [place] [address] Ramona Galarza DO [address] [place] [address] CBC WITH DIFFERENTIAL, COMPREHENSIVE METABOLIC PANEL, TSH, Additional followed-up results: 4 Social History Tobacco Use Types Packs/Day Years Used Date Smoking Tobacco: Never Passive Smoke Exposure: Never Smokeless Tobacco: Never Alcohol Use Standard Drinks/Week Comments Never 0 (1 standard drink = 0.6 oz pur e alcohol) Comments No Sex and Gender Information Value Date Recorded Sex Assigned at Not on file 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 Gender Identity Not on file Sexual Orientation Not on file documented as of this encounter Plan of Treatment Upcoming Encounters Date Type Department Care Team (Late st Contact Info) Description 09/25/2025 1:00 PM FLOORING SALES MANAGER Office Visit [facility] [address] [place] [address] Ramona Galarza, DO [address] [place] [address] 12/25/2025 1:00 PM FLOORING SALES MANAGER Office Visit [facility] [address] [place] [phone] Ramona Galarza, DO [address] [place] [phone] 03/25/2026 1:20 PM CDT Office Visit [facility] [address] [place] [address] Ramona Galarza DO [address] [place] [address] documented as of this encounter Visit Diagnoses Not on filedocumented in this encounter Care Teams Fishing Worker Relationship Specialty Start Date End Date Ramona Galarza DO [address] [place] [phone] PCP - General Family Practice 02/12/24 documented as of this encounter
[2025-06-29 17:01] VITALS: BP 138/85; PULSE 73; RESP 18; TEMP 36.6; O2SAT 94; BMI 38.7
[2025-06-29 17:33] LABS: Hematocrit 40.9 % (36-47); Hemoglobin 13.00 g/dL (11.27-16.99); Mean Corpuscular HGB Conc 31.8 g/dL (30-55); Mean Corpuscular Hemoglobin 29.2 pg (27-33); Mean Corpuscular Volume 91.9 fl (85-98); Nucleated Red Blood Cells % 0 %; Platelet Count 282 10^3/cmm (157-399); Red Blood Count 4.45 10^6/uL (3.85-5.65); White Blood Count 9.51 10^3/uL (3.29-11.43)
--- NOTE | 2025-06-29 17:35 | CTR_ITS ---
PROCEDURE INFORMATION: Exam: CT Abdomen And Pelvis With Contrast Exam date and time: 06/29/2025 6:12 PM Age: 75 years old Clinical indication: Abdominal pain; Localized; Right lower quadrant (rlq); C/O rlq pain TECHNIQUE: Imaging protocol: Computed tomography of the abdomen and pelvis with contrast. Radiation optimization: All CT scans at this facility use at least one of these dose optimization techniques: automated exposure control; mA and/or kV adjustment per patient size (includes targeted exams where dose is matched to clinical indication); or iterative reconstruction. Contrast material: OMNI 350; Contrast volume: 100 ml; Contrast route: INTRAVENOUS (IV); COMPARISON: CT abdomen pelvis wo con [id number] 09/14/2022 3:11 PM RADIATION DOSE METRICS: Total DLP (mGy-cm): 1094.7 FINDINGS: Lungs: Mild bibasilar atelectasis. Diaphragm: Asymmetric elevation of the right hemidiaphragm. Liver: The liver is enlarged, measuring 20.9 cm craniocaudal. Borderline hepatic steatosis. Gallbladder and biliary ducts: Cholelithiasis without CT evidence of acute cholecystitis. Pancreas: The pancreas is atrophic. No ductal dilatation. Spleen: Calcified splenic granulomas. Adrenal glands: Normal. No mass. Kidneys and ureters: Normal. No hydronephrosis. Stomach and bowel: Sigmoid diverticulosis without evidence of acute diverticulitis. No evidence of bowel obstruction. Appendix: No evidence of appendicitis. Intraperitoneal space: Unremarkable. No free air. No significant fluid collection. Vasculature: Mild atherosclerotic aortoiliac calcifications. No abdominal aortic aneurysm. Lymph nodes: Unremarkable. No enlarged lymph nodes. Urinary bladder: Unremarkable as visualized. Reproductive: Unremarkable as visualized. Bones/joints: Multilevel thoracolumbar spondylosis. Diffuse osseous demineralization. Soft tissues: Unremarkable. CT/CT abdomen pelvis w con* [id number] IMPRESSION: 1. No acute findings. 2. Sigmoid diverticulosis without diverticulitis.
[2025-06-29 18:04] LABS: Alanine Aminotransferase 16 U/L (0-33); Albumin Level 4.1 g/dL (3.5-5.2); Alkaline Phosphatase 80 U/L (35-105); Anion Gap 15.5 (5-19); Aspartate Amino Transferase 25 U/L (0-32); Blood Urea Nitrogen 32 mg/dL (8-23); Calcium 9.1 mg/dL (8.5-10.5); Carbon Dioxide 24 mmol/L (22-29); Chloride 104 mmol/L (98-107); Creatinine Clr Calc Pharmacy 48.5384; Globulin 2.8 g/dL (1.3-4.6); Glucose 127 mg/dL (65-115); Lipase 20 U/L (13-60); Osmolality Calculated 296 mOsm/kg (285-295); Potassium 4.5 mmol/L (3.5-5.1); Sodium 139 mmol/L (136-145); Total Protein 6.9 g/dL (6.6-8.7)
[2025-06-29 18:05] VITALS: BP 179/82; PULSE 61; O2SAT 96
[2025-06-29] MEDS: iohexol 350 mg/mL 500 mL Btl (per mL) IV (18:15)
[2025-06-29 18:20] LABS: Glucose Urine UA Negative (Normal); Nitrate Urine Positive (Negative); Specific Gravity, Urine 1.016 (1.005-1.030)
[2025-06-29 18:49] LABS: Add Urine Microscopic? YES; UA Manual Slide Review YES
--- NOTE | 2025-06-29 18:51 | W.ED.ABDPA2 ---
Documented by User: JOHNATHON Clifford 06/29/25 21:03 HPI - Abdominal Pain General: Chief Complaint: Abdominal Pain Stated Complaint: abd pain Time Seen by Provider: 06/29/25 17:02 Source: patient Mode of arrival: ambulatory Limitations: no limitations History of Present Illness: Patient is a 75-year-old female who presents the emergency department planing of right lower quadrant abdominal pain for the past 3 days. Reports pain is a 10/10, she still has her appendix and no bladder. Does not report any urinary symptoms, does state that she has chronic back pain and this has worsened as well. No fever, nausea/vomiting, or other symptoms reported. She takes oxycodone for pain regularly. Vitals unremarkable at this time. States the pain is sharp and sometimes can feel in the left lower quadrant. Does not report any specific alleviating or exacerbating factors. No temporal pattern noted. MD elicited complaint: abdominal pain Onset (ago): day(s) Pain Consistency: constant Location: RLQ Severity: severe Quality: sharp Radiation: LLQ Exacerbating factors: nothing Relieving factors: nothing Associated Symptoms: Denies bloating, change in stool character, chills, constipation, diarrhea, dysuria, fever(s), hematochezia, nausea and vomiting Related Data Home Medications ?Medication ?Instructions ?Recorded ?Confirmed levalbuterol tartrate 45 2 puff inhalation Q6H PRN 07/01/22 06/17/25 mcg/actuation aerosol inhaler Shortness Of Breath oxycodone 15 mg tablet 15 mg PO Q4H PRN Pain 07/01/22 06/17/25 ondansetron 8 mg disintegrating 8 mg PO Q6H PRN Nausea And Vomiting 12/27/24 06/17/25 tablet cyanocobalamin (vitamin B-12) 1,000 mcg SUBCUT .Q30D 01/18/25 06/17/25 1,000 mcg/mL injection solution ergocalciferol (vitamin D2) 1,250 50,000 unit PO Q7D 01/18/25 06/17/25 mcg (50,000 unit) capsule famotidine 20 mg tablet 20 mg PO BID 01/18/25 06/17/25 simvastatin 40 mg tablet 40 mg PO DAILY 01/18/25 06/17/25 hydralazine 50 mg tablet mg PO 03/20/25 06/17/25 Previous Rx's ?Medication ?Instructions ?Recorded glucometer testing kit #1 ea 09/18/22 glucometer testing kit #1 ea 09/18/22 lisinopril 40 mg tablet 40 mg PO DAILY #30 tabs 02/06/25 insulin degludec 100 unit/mL (3 25 unit (0.25 mL) SUBCUT QAM #15 mL 02/21/25 mL) subcutaneous pen (Tresiba FlexTouch U-100 insulin) gabapentin 800 mg tablet See Rx Instructions .Route 03/31/25 .COMPLEX #270 tabs glipizide 10 mg tablet, extended 10 mg PO DAILY #90 tabs 03/31/25 release 24 hr magnesium oxide 400 mg (241.3 mg 400 mg PO DAILY #90 tabs 03/31/25 magnesium) tablet metformin 1,000 mg tablet 1,000 mg PO BID #180 tabs 03/31/25 metoprolol tartrate 50 mg tablet 50 mg PO BID #180 tabs 03/31/25 rivaroxaban 10 mg tablet (Xarelto) 10 mg PO DAILY #90 tabs 03/31/25 amlodipine 10 mg tablet See Rx Instructions .Route 05/02/25 .COMPLEX #90 tabs fenofibrate 160 mg tablet See Rx Instructions .Route 05/02/25 .COMPLEX #90 tabs hydralazine 100 mg tablet See Rx Instructions .Route 05/25/25 .COMPLEX #90 tabs syringe with needle 3 mL 25 gauge #1 ea 05/25/25 x 1 (BD Luer-Beth Syringe) cefdinir 300 mg capsule 300 mg PO BID 10 days #20 caps 06/29/25 ondansetron 4 mg disintegrating 4 mg PO TID PRN nausea and 06/29/25 tablet vomiting #15 tabs Allergies Allergy/AdvReac Type Severity Reaction Status Date / Time No Known Allergies Allergy Verified 06/17/25 09:08 Review of Systems General: Reports: 10 or more systems reviewed and unremarkable except in HPI and below Const: Denies: fever(s), chills, change in appetite, change in weight or diaphoresis ENMT: Denies: throat pain or hoarseness Card: Denies: chest pain, palpitations or lightheadedness Resp: Denies: dyspnea, productive cough or wheezing GI: Reports: abdominal pain; Denies: nausea, vomiting, diarrhea, constipation, bloating, change in stool character or hematochezia : Denies: flank pain, difficulty voiding, dysuria, urinary frequency or urinary urgency Musc: Reports: back pain; Denies: neck pain Skin/Breast: Denies: rash or new lesions Neuro: Denies: headache(s) or dizziness PFSH ED PFSH: Medical History Obesity Acute hypoxemic respiratory failure COVID-19 NOEMI (acute kidney injury) Type 2 diabetes mellitus B12 deficiency Vitamin D deficiency GERD (gastroesophageal reflux disease) Atrial fibrillation Cholecystitis Abnormal transaminases Cholelithiasis Acute encephalopathy Acute cystitis Wound of right foot Type 2 diabetes mellitus without complications Obesity, unspecified Chronic osteoarthritis Bunion of right foot Encounter for counseling for care management of patient with chronic conditions and complex health needs using nurse-based model Seasonal allergies Gastro-esophageal reflux disease without esophagitis Neuropathy Dyslipidemia Chronic back pain Essential (primary) hypertension Surgical History Hx of knee surgery (~10/2000) left Family History Mother Cancer colon Father Cancer pancreatic Family/Other CAD (coronary artery disease) Social History Smoking and tobacco/nicotine status: never used tobacco/nicotine Second hand smoke exposure: No Alcohol intake: never Substance/Drug Use: never Lives independently: Yes Household members: significant other Marital status: Life Partner Current occupational status: retired Current gender identity: Female Physical Exam Const: COMMON NORMALS: no acute distress, patient oriented x3, healthy appearing, alert and well nourished GENERAL APPEARANCE: cooperative NUTRITIONAL APPEARANCE: obese ORIENTATION/CONSCIOUSNESS: Yes awake HENMT: COMMON NORMALS: normocephalic, atraumatic, hearing grossly normal bilaterally, external ears normal, Normal external nose present, Normal nasal mucous membranes and turbinates present and moist oral mucous membranes HEAD & SCALP: normocephalic and atraumatic NOSE: Normal external nose present and Normal nasal mucous membranes and turbinates present EXTERNAL EAR: Yes external ears normal Eye: COMMON NORMALS: Equal, round and reactive pupils present, EOMs intact bilaterally, conjunctivae normal and normal visual garcia by confrontation CONJUNCTIVA: Yes conjunctivae normal PUPIL: Yes Equal, round and reactive pupils present Neck/C-Spine: COMMON NORMALS: full ROM, supple, no meningeal signs and no JVD Resp: COMMON NORMALS: normal respiratory effort, No retractions, No use of accessory muscles and clear to auscultation bilaterally AUSCULTATION: clear to auscultation bilaterally, no crackles, no rales, no rhonchi and no wheezes Cardio: COMMON NORMALS: no JVD, regular rate, regular rhythm, S1 normal heart sound present, S2 normal heart sound present, No gallops present (Cardio), No clicks present (Cardio), No murmurs present (Cardio), No rub (Cardio) and Peripheral pulses 2+ throughout RATE: regular rate RHYTHM: regular rhythm HEART SOUNDS: S1 normal heart sound present and S2 normal heart sound present PERIPHERAL PULSES: Peripheral pulses 2+ throughout GI: COMMON NORMALS: Soft to palpation, No hepatosplenomegaly present and no masses INSPECTION: Yes central obesity AUSCULTATION: Yes normoactive bowel sounds PALPATION: Yes Soft to palpation, Yes Tenderness to palpation present (GI) Details: RLQ, No Guarding due to palpation present (GI), No Rigid due to palpation and Yes No hepatosplenomegaly present RECTAL EXAM: deferred : COMMON NORMALS: Yes no CVA tenderness BLADDER/KIDNEY EXAM: Yes no CVA tenderness Back/Pelvis: COMMON NORMALS: no CVA tenderness Extremity: COMMON NORMALS: normal to inspection and full ROM Neuro: COMMON NORMALS: patient oriented x3, moves all extremities, no focal motor deficits and no sensory deficits noted SENSORIUM/ORIENTATION: Yes alert MENINGEAL SIGNS: Yes no meningeal signs Psych: COMMON NORMALS: mental status grossly normal, cooperative and speech normal SPEECH: Yes normal speech Skin: COMMON NORMALS: no rashes or lesions noted GENERAL SKIN EXAM: no rashes or lesions noted Course Vital Signs: Vital signs: Vital Signs Temperature 97.9 F 06/29/25 17:01 Pulse Rate 71 06/29/25 20:26 Respiratory Rate 18 06/29/25 17:01 Blood Pressure 166/88 06/29/25 20:26 Pulse Oximetry 93 06/29/25 20:26 Oxygen Delivery Me thod Room Air 06/29/25 18:05 MDM - Abdominal Pain Medical Decision Making Patient presented with right lower quadrant abdominal pain for the past few days. Tender to palpation in the right lower quadrant on exam, she has been hypertensive here in the ED, states that she is always hypertensive and she has not taken her blood pressure medications tonight. Takes oxycodone regularly for pain, this has not been helping. Toradol was given through an IV, CT ordered showing no acute findings in the abdomen. Lab work unremarkable, urinalysis showing signs of urinary tract infection which I believe is contributing to her pain. Rocephin given through the IV, she will be started on Omnicef for home. Stable for discharge, return precautions given. Lab Data 06/29/25 17:21 06/29/25 17:21 Labs/Radiology: Radiology Impressions Abdomen/Pelvis CT 06/29/25 17:35 IMPRESSION: 1. No acute findings. 2. Sigmoid diverticulosis without diverticulitis. Laboratory Results WBC 9.51 10^3/uL (3.29-11.43) 06/29/25 17: RBC 4.45 10^6/uL (3.85-5.65) 06/29/25 17:21 Hgb 13.00 g/dL (11.27-16.99) 06/29/25 17:21 Hct 40.9 % (36-47) 06/29/25 17:21 MCV 91.9 fl (85-98) 06/29/25 17:21 MCH 29.2 pg (27-33) 06/29/25 17:21 MCHC 31.8 g/dL (30-55) 06/29/25 17:21 RDW 15.1 % (12.1-15.1) 06/29/25 17:21 Plt Count 282 10^3/cmm (157-399) 06/29/25 17:21 MPV 9.9 fL (7.4-10.4) 06/29/25 17:21 Neut % (Auto) 61.9 % 06/29/25 17:21 Lymph % (Auto) 23.4 % 06/29/25 17:21 [place] % (Auto) 10.7 % 06/29/25 17:21 Eos % (Auto) 3.2 % 06/29/25 17:21 Baso % (Auto) 0.4 % 06/29/25 17:21 Neut # (Auto) 5.88 10^3/uL (1.8-7.7) 06/29/25 17:21 Lymph # (Auto) 2.2 10^3/uL (0.8-4.8) 06/29/25 17:21 [place] # (Auto) 1.0 10^3/uL (0.2-0.9) H 06/29/25 17:21 Eos # (Auto) 0.3 10^3/uL (0.0-0.8) 06/29/25 17:21 Baso # (Auto) 0.0 10^3/uL (0.0-0.1) 06/29/25 17:21 Nucleated RBC % (auto) 0 % 06/29/25 17:21 Nucleated RBCs # 0.0 /100WBC 06/29/25 17:21 Sodium 139 mmol/L (136-145) 06/29/25 17:21 Potassium 4.5 mmol/L (3.5-5.1) 06/29/25 17:21 Chloride 104 mmol/L (98-107) 06/29/25 17:21 Carbon Dioxide 24 mmol/L (22-29) 06/29/25 17:21 Anion Gap 15.5 (5-19) 06/29/25 17:21 BUN 32 mg/dL (8-23) H 06/29/25 17:21 Creatinine 1.1 mg/dL (0.5-0.9) H 06/29/25 17:21 GFR Calculation Not Reportable 06/29/25 17:21 Glucose 127 mg/dL (65-115) H 06/29/25 17:21 Calculated Osmolality 296 mOsm/kg (285-295) H 06/29/25 17:21 Calcium 9.1 mg/dL (8.5-10.5) 06/29/25 17:21 Total Bilirubin 0.2 mg/dL (0.15-1.2) 06/29/25 17:21 AST 25 U/L (0-32) 06/29/25 17:21 ALT 16 U/L (0-33) 06/29/25 17:21 Alkaline Phosphatase 80 U/L (35-105) 06/29/25 17:21 Total Protein 6.9 g/dL (6.6-8.7) 06/29/25 17:21 Albumin 4.1 g/dL (3.5-5.2) 06/29/25 17:21 Globulin 2.8 g/dL (1.3-4.6) 06/29/25 17:21 Lipase 20 U/L (13-60) 06/29/25 17:21 Urine Color Yellow (Yellow) 06/29/25 17:45 Urine Appearance Cloudy (CLEAR) A 06/29/25 17:45 Urine pH 6.0 (5-7) 06/29/25 17:45 Ur Specific [place] 1.016 (1.005-1.030) 06/29/25 17:45 Urine Protein Negative (Negative) 06/29/25 17:45 Urine Glucose (UA) Negative (Normal) 06/29/25 17:45 Urine Ketones Negative (Negative) 06/29/25 17:45 Urine Blood Negative (Negative) 06/29/25 17:45 Urine Nitrate Positive (Negative) A 06/29/25 17:45 Urine Bilirubin Negative (Negative) 06/29/25 17:45 Urine Urobilinogen 0.2 mg/dL (Negative) 06/29/25 17:45 Ur Leukocyte Esterase 2+ (Negative) A 06/29/25 17:45 Urine RBC 0-4 /hpf (0-2) H 06/29/25 17:45 Urine WBC 25-40 /hpf (0-5) H 06/29/25 17:45 Ur Squamous Epith Cells 5-10 /hpf (0-5) H 06/29/25 17:45 Amorphous Sediment Not Reportable 06/29/25 17:45 Urine Bacteria 3+ /hpf (NONE) H 06/29/25 17:45 All radiology interpretation(s) finalized by discharge Discharge Plan Discharge Patient Disposition: Home Clinical Impression: Urinary tract infection Qualifiers: Urinary tract infection type: acute cystitis Hematuria presence: without hematuria Qualified Code(s): N30.00 - Acute cystitis without hematuria Condition: Stable Prescriptions: New cefdinir 300 mg capsule 300 mg PO BID 10 Days Qty: 20 0RF ondansetron 4 mg tablet,disintegrating 4 mg PO TID PRN (Reason: nausea and vomiting) Qty: 15 0RF No Action hydralazine 50 mg tablet PO insulin degludec [Tresiba FlexTouch U-100] 100 unit/mL (3 mL) insulin pen 25 unit SUBCUT QAM Qty: 15 5RF magnesium oxide 400 mg (241.3 mg magnesium) tablet 400 mg PO DAILY Qty: 90 0RF metformin 1,000 mg tablet 1,000 mg PO BID Qty: 180 0RF glipizide 10 mg tablet extended release 24hr 10 mg PO DAILY Qty: 90 0RF Xarelto 10 mg tablet 10 mg PO DAILY Qty: 90 0RF metoprolol tartrate 50 mg tablet 50 mg PO BID Qty: 180 0RF gabapentin 800 mg tablet See Rx Instructions .ROUTE .COMPLEX Qty: 270 1RF Dose Instruction: TAKE ONE TABLET BY MOUTH THREE TIMES DAILY Rx Instructions: TAKE ONE TABLET BY MOUTH THREE TIMES DAILY amlodipine 10 mg tablet See Rx Instructions .ROUTE .COMPLEX Qty: 90 1RF Dose Instruction: TAKE ONE TABLET BY MOUTH DAILY Rx Instructions: TAKE ONE TABLET BY MOUTH DAILY fenofibrate 160 mg tablet See Rx Instructions .ROUTE .COMPLEX Qty: 90 1RF Dose Instruction: TAKE ONE TABLET BY MOUTH DAILY Rx Instructions: TAKE ONE TABLET BY MOUTH DAILY hydralazine 100 mg tablet See Rx Instructions .ROUTE .COMPLEX Qty: 90 2RF Dose Instruction: TAKE ONE TABLET BY MOUTH THREE TIMES DAILY Rx Instructions: TAKE ONE TABLET BY MOUTH THREE TIMES DAILY (DME) BD Luer-Beth Syringe 3 mL 25 gauge x 1 syringe See Rx Instructions .ROUTE .COMPLEX Qty: 1 5RF Dose Instruction: USE ONE SYRINGE MONTHLY TO INJECT B12 Rx Instructions: USE ONE SYRINGE MONTHLY TO INJECT B12 (DME) glucometer testing kit See Rx Instructions .Route .MEDSUPPLY Qty: 1 0RF Rx Instructions: Glucometer testing kit, check blood sugars 3 times daily -Lancets #100, strips #100 (DME) glucometer testing kit See Rx Instructions .Route .MEDSUPPLY Qty: 1 0RF Rx Instructions: Glucometer testing kit, check blood sugars 3 times daily, after meals based on sliding scale provided Lancets #100 Strips #100 oxycodone 15 mg tablet 15 mg PO Q4H PRN (Reason: Pain) levalbuterol tartrate 45 mcg/actuation HFA aerosol inhaler 2 puff INHALATION Q6H PRN (Reason: Shortness Of Breath) ondansetron 8 mg tablet,disintegrating 8 mg PO Q6H PRN (Reason: Nausea And Vomiting) simvastatin 40 mg tablet 40 mg PO DAILY famotidine 20 mg tablet 20 mg PO BID cyanocobalamin (vitamin B-12) 1,000 mcg/mL solution 1,000 mcg SUBCUT .Q30D ergocalciferol (vitamin D2) 1,250 mcg (50,000 unit) capsule 50,000 unit PO Q7D Rx Instructions: Monday lisinopril 40 mg tablet 40 mg PO DAILY Qty: 30 0RF Discharge Orders: Discharge ED (Routine); Ordered 06/29/25 Ordered By: Talon Menendez Referrals: Sheri Black FNP [Primary Care Provider, Family Practice] Patient Instructions: Patient Portal & Martin Instructions Activity Restrictions/Additional Instructions: Please take cefdinir as prescribed for your urinary tract infection. Continue taking your home pain medications. Make sure that you are drinking plenty of fluids. Zofran will be prescribed to take for any nausea. Please follow-up with your regular provider within the next 1 to 2 weeks for reevaluation. Monitor for any high fever, worsening pain, persistent vomiting, or any other major concerns you have been return to the emergency department as we discussed. Continue taking your already prescribed medications at home as normal. Print Language: [place] Islander Coding Level of Care Code ED Overlock Hemmer for Chg Fwd Documented by User: Charli Thakkar DO 06/29/25 22:27 HPI - Abdominal Pain General: Chief Complaint: Abdominal Pain Stated Complaint: abd pain Time Seen by Provider: 06/29/25 17:02 Related Data Home Medications ?Medication ?Instructions ?Recorded ?Confirmed levalbuterol tartrate 45 2 puff inhalation Q6H PRN 07/01/22 06/17/25 mcg/actuation aerosol inhaler Shortness Of Breath oxycodone 15 mg tablet 15 mg PO Q4H PRN Pain 07/01/22 06/17/25 ondansetron 8 mg disintegrating 8 mg PO Q6H PRN Nausea And Vomiting 12/27/24 06/17/25 tablet cyanocobalamin (vitamin B-12) 1,000 mcg SUBCUT .Q30D 01/18/25 06/17/25 1,000 mcg/mL injection solution ergocalciferol (vitamin D2) 1,250 50,000 unit PO Q7D 01/18/25 06/17/25 mcg (50,000 unit) capsule famotidine 20 mg tablet 20 mg PO BID 01/18/25 06/17/25 simvastatin 40 mg tablet 40 mg PO DAILY 01/18/25 06/17/25 hydralazine 50 mg tablet mg PO 03/20/25 06/17/25 Previous Rx's ?Medication ?Instructions ?Recorded glucometer testing kit #1 ea 09/18/22 glucometer testing kit #1 ea 09/18/22 lisinopril 40 mg tablet 40 mg PO DAILY #30 tabs 02/06/25 insulin degludec 100 unit/mL (3 25 unit (0.25 mL) SUBCUT QAM #15 mL 02/21/25 mL) subcutaneous pen (Tresiba FlexTouch U-100 insulin) gabapentin 800 mg tablet See Rx Instructions .Route 03/31/25 .COMPLEX #270 tabs glipizide 10 mg tablet, extended 10 mg PO DAILY #90 tabs 03/31/25 release 24 hr magnesium oxide 400 mg (241.3 mg 400 mg PO DAILY #90 tabs 03/31/25 magnesium) tablet metformin 1,000 mg tablet 1,000 mg PO BID #180 tabs 03/31/25 metoprolol tartrate 50 mg tablet 50 mg PO BID #180 tabs 03/31/25 rivaroxaban 10 mg tablet (Xarelto) 10 mg PO DAILY #90 tabs 03/31/25 amlodipine 10 mg tablet See Rx Instructions .Route 05/02/25 .COMPLEX #90 tabs fenofibrate 160 mg tablet See Rx Instructions .Route 05/02/25 .COMPLEX #90 tabs hydralazine 100 mg tablet See Rx Instructions .Route 05/25/25 .COMPLEX #90 tabs syringe with needle 3 mL 25 gauge #1 ea 05/25/25 x 1 (BD Luer-Beth Syringe) cefdinir 300 mg capsule 300 mg PO BID 10 days #20 caps 06/29/25 ondansetron 4 mg disintegrating 4 mg PO TID PRN nausea and 06/29/25 tablet vomiting #15 tabs Allergies Allergy/AdvReac Type Severity Reaction Status Date / Time No Known Allergies Allergy Verified 06/17/25 09:08 PFSH ED PFSH: Medical History Obesity Acute hypoxemic respiratory failure COVID-19 NOEMI (acute kidney injury) Type 2 diabetes mellitus B12 deficiency Vitamin D deficiency GERD (gastroesophageal reflux disease) Atrial fibrillation Cholecystitis Abnormal transaminases Cholelithiasis Acute encephalopathy Acute cystitis Wound of right foot Type 2 diabetes mellitus without complications Obesity, unspecified Chronic osteoarthritis Bunion of right foot Encounter for counseling for care management of patient with chronic conditions and complex health needs using nurse-based model Seasonal allergies Gastro-esophageal reflux disease without esophagitis Neuropathy Dyslipidemia Chronic back pain Essential (primary) hypertension Surgical History Hx of knee surgery (~10/2000) left Family History Mother Cancer colon Father Cancer pancreatic Family/Other CAD (coronary artery disease) Social History Smoking and tobacco/nicotine status: never used tobacco/nicotine Second hand smoke exposure: No Alcohol intake: never Substance/Drug Use: never Lives independently: Yes Household members: significant other Marital status: Life Partner Current occupational status: retired Current gender identity: Female Course Vital Signs: Vital signs: Vital Signs Temperature 97.9 F 06/29/25 17:01 Pulse Rate 71 06/29/25 20:26 Respiratory Rate 18 06/29/25 17:01 Blood Pressure 166/88 06/29/25 20:26 Pulse Oximetry 93 06/29/25 20:26 Oxygen Delivery Me thod Room Air 06/29/25 18:05 MDM - Abdominal Pain Medical Decision Making Patient presented with right lower quadrant abdominal pain for the past few days. Tender to palpation in the right lower quadrant on exam, she has been hypertensive here in the ED, states that she is always hypertensive and she has not taken her blood pressure medications tonight. Takes oxycodone regularly for pain, this has not been helping. Toradol was given through an IV, CT ordered showing no acute findings in the abdomen. Lab work unremarkable, urinalysis showing signs of urinary tract infection which I believe is contributing to her pain. Rocephin given through the IV, she will be started on Omnicef for home. Stable for discharge, return precautions given. This patient was originally seen by Mr. Shon PA-C. I agree with his history, evaluation, and management. Lab Data 06/29/25 17:21 06/29/25 17:21 Labs/Radiology: Radiology Impressions Abdomen/Pelvis CT 06/29/25 17:35 IMPRESSION: 1. No acute findings. 2. Sigmoid diverticulosis without diverticulitis. Laboratory Results WBC 9.51 10^3/uL (3.29-11.43) 06/29/25 17:21 RBC 4.45 10^6/uL (3.85-5.65) 06/29/25 17:21 Hgb 13.00 g/dL (11.27-16.99) 06/29/25 17:21 Hct 40.9 % (36-47) 06/29/25 17:21 MCV 91.9 fl (85-98) 06/29/25 17:21 MCH 29.2 pg (27-33) 06/29/25 17:21 MCHC 31.8 g/dL (30-55) 06/29/25 17:21 RDW 15.1 % (12.1-15.1) 06/29/25 17:21 Plt Count 282 10^3/cmm (157-399) 06/29/25 17:21 MPV 9.9 fL (7.4-10.4) 06/29/25 17: Neut % (Auto) 61.9 % 06/29/25 17:21 Lymph % (Auto) 23.4 % 06/29/25 17:21 [place] % (Auto) 10.7 % 06/29/25 17:21 Eos % (Auto) 3.2 % 06/29/25 17:21 Baso % (Auto) 0.4 % 06/29/25 17:21 Neut # (Auto) 5.88 10^3/uL (1.8-7.7) 06/29/25 17:21 Lymph # (Auto) 2.2 10^3/uL (0.8-4.8) 06/29/25 17:21 [place] # (Auto) 1.0 10^3/uL (0.2-0.9) H 06/29/25 17:21 Eos # (Auto) 0.3 10^3/uL (0.0-0.8) 06/29/25 17:21 Baso # (Auto) 0.0 10^3/uL (0.0-0.1) 06/29/25 17:21 Nucleated RBC % (auto) 0 % 06/29/25 17:21 Nucleated RBCs # 0.0 /100WBC 06/29/25 17:21 Sodium 139 mmol/L (136-145) 06/29/25 17:21 Potassium 4.5 mmol/L (3.5-5.1) 06/29/25 17:21 Chloride 104 mmol/L (98-107) 06/29/25 17:21 Carbon Dioxide 24 mmol/L (22-29) 06/29/25 17:21 Anion Gap 15.5 (5-19) 06/29/25 17:21 BUN 32 mg/dL (8-23) H 06/29/25 17:21 Creatinine 1.1 mg/dL (0.5-0.9) H 06/29/25 17:21 GFR Calculation Not Reportable 06/29/25 17:21 Glucose 127 mg/dL (65-115) H 06/29/25 17:21 Calculated Osmolality 296 mOsm/kg (285-295) H 06/29/25 17:21 Calcium 9.1 mg/dL (8.5-10.5) 06/29/25 17:21 Total Bilirubin 0.2 mg/dL (0.15-1.2) 06/29/25 17:21 AST 25 U/L (0-32) 06/29/25 17:21 ALT 16 U/L (0-33) 06/29/25 17:21 Alkaline Phosphatase 80 U/L (35-105) 06/29/25 17:21 Total Protein 6.9 g/dL (6.6-8.7) 06/29/25 17:21 Albumin 4.1 g/dL (3.5-5.2) 06/29/25 17:21 Globulin 2.8 g/dL (1.3-4.6) 06/29/25 17:21 Lipase 20 U/L (13-60) 06/29/25 17:21 Urine Color Yellow (Yellow) 06/29/25 17:45 Urine Appearance Cloudy (CLEAR) A 06/29/25 17:45 Urine pH 6.0 (5-7) 06/29/25 17:45 Ur Specific [place] 1.016 (1.005-1.030) 06/29/25 17:45 Urine Protein Negative (Negative) 06/29/25 17:45 Urine Glucose (UA) Negative (Normal) 06/29/25 17:45 Urine Ketones Negative (Negative) 06/29/25 17:45 Urine Blood Negative (Negative) 06/29/25 17:45 Urine Nitrate Positive (Negative) A 06/29/25 17:45 Urine Bilirubin Negative (Negative) 06/29/25 17:45 Urine Urobilinogen 0.2 mg/dL (Negative) 06/29/25 17:45 Ur Leukocyte Esterase 2+ (Negative) A 06/29/25 17:45 Urine RBC 0-4 /hpf (0-2) H 06/29/25 17:45 Urine WBC 25-40 /hpf (0-5) H 06/29/25 17:45 Ur Squamous Epith Cells 5-10 /hpf (0-5) H 06/29/25 17:45 Amorphous Sediment Not Reportable 06/29/25 17:45 Urine Bacteria 3+ /hpf (NONE) H 06/29/25 17:45 Discharge Plan Discharge Patient Disposition: Home Clinical Impression: Urinary tract infection Qualifiers: Urinary tract infection type: acute cystitis Hematuria presence: without hematuria Qualified Code(s): N30.00 - Acute cystitis without hematuria Condition: Stable Prescriptions: New cefdinir 300 mg capsule 300 mg PO BID 10 Days Qty: 20 0RF ondansetron 4 mg tablet,disintegrating 4 mg PO TID PRN (Reason: nausea and vomiting) Qty: 15 0RF No Action hydralazine 50 mg tablet PO insulin degludec [Tresiba FlexTouch U-100] 100 unit/mL (3 mL) insulin pen 25 unit SUBCUT QAM Qty: 15 5RF magnesium oxide 400 mg (241.3 mg magnesium) tablet 400 mg PO DAILY Qty: 90 0RF metformin 1,000 mg tablet 1,000 mg PO BID Qty: 180 0RF glipizide 10 mg tablet extended release 24hr 10 mg PO DAILY Qty: 90 0RF Xarelto 10 mg tablet 10 mg PO DAILY Qty: 90 0RF metoprolol tartrate 50 mg tablet 50 mg PO BID Qty: 180 0RF gabapentin 800 mg tablet See Rx Instructions .ROUTE .COMPLEX Qty: 270 1RF Dose Instruction: TAKE ONE TABLET BY MOUTH THREE TIMES DAILY Rx Instructions: TAKE ONE TABLET BY MOUTH THREE TIMES DAILY amlodipine 10 mg tablet See Rx Instructions .ROUTE .COMPLEX Qty: 90 1RF Dose Instruction: TAKE ONE TABLET BY MOUTH DAILY Rx Instructions: TAKE ONE TABLET BY MOUTH DAILY fenofibrate 160 mg tablet See Rx Instructions .ROUTE .COMPLEX Qty: 90 1RF Dose Instruction: TAKE ONE TABLET BY MOUTH DAILY Rx Instructions: TAKE ONE TABLET BY MOUTH DAILY hydralazine 100 mg tablet See Rx Instructions .ROUTE .COMPLEX Qty: 90 2RF Dose Instruction: TAKE ONE TABLET BY MOUTH THREE TIMES DAILY Rx Instructions: TAKE ONE TABLET BY MOUTH THREE TIMES DAILY (DME) BD Luer-Beth Syringe 3 mL 25 gauge x 1 syringe See Rx Instructions .ROUTE .COMPLEX Qty: 1 5RF Dose Instruction: USE ONE SYRINGE MONTHLY TO INJECT B12 Rx Instructions: USE ONE SYRINGE MONTHLY TO INJECT B12 (DME) glucometer testing kit See Rx Instructions .Route .MEDSUPPLY Qty: 1 0RF Rx Instructions: Glucometer testing kit, check blood sugars 3 times daily -Lancets #100, strips #100 (DME) glucometer testing kit See Rx Instructions .Route .MEDSUPPLY Qty: 1 0RF Rx Instructions: Glucometer testing kit, check blood sugars 3 times daily, after meals based on sliding scale provided Lancets #100 Strips #100 oxycodone 15 mg tablet 15 mg PO Q4H PRN (Reason: Pain) levalbuterol tartrate 45 mcg/actuation HFA aerosol inhaler 2 puff INHALATION Q6H PRN (Reason: Shortness Of Breath) ondansetron 8 mg tablet,disintegrating 8 mg PO Q6H PRN (Reason: Nausea And Vomiting) simvastatin 40 mg tablet 40 mg PO DAILY famotidine 20 mg tablet 20 mg PO BID cyanocobalamin (vitamin B-12) 1,000 mcg/mL solution 1,000 mcg SUBCUT .Q30D ergocalciferol (vitamin D2) 1,250 mcg (50,000 unit) capsule 50,000 unit PO Q7D Rx Instructions: Monday lisinopril 40 mg tablet 40 mg PO DAILY Qty: 30 0RF Discharge Orders: Discharge ED (Routine); Ordered 06/29/25 Ordered By: Talon Menendez Referrals: Sheri Black FNP [Primary Care Provider, Family Practice] Patient Instructions: Patient Portal & Martin Instructions Activity Restrictions/Additional Instructions: Please take cefdinir as prescribed for your urinary tract infection. Continue taking your home pain medications. Make sure that you are drinking plenty of fluids. Zofran will be prescribed to take for any nausea. Please follow-up with your regular provider within the next 1 to 2 weeks for reevaluation. Monitor for any high fever, worsening pain, persistent vomiting, or any other major concerns you have been return to the emergency department as we discussed. Continue taking your already prescribed medications at home as normal. Print Language: Solomon Islander Coding Level of Care Code ED Overlock Hemmer for Jorje Blackmon
[2025-06-29] MEDS: cefTRIAXone 1,000 mg SDV 1000 MG IVP (19:52)
[2025-06-29 20:26] VITALS: BP 166/88; PULSE 71; O2SAT 93
== END 2025-06-29 20:29 | disposition home or self-care (01) ==
PROVIDERS: Emergency Medicine; Emergency Provider Physician Assistant; PCP Nurse Practitioner Family
DX: N30.00 Acute cystitis without hematuria (principal); Z79.4 Long term (current) use of insulin; Z79.84 Long term (current) use of oral hypoglycemic drugs; E78.5 Hyperlipidemia, unspecified; I10 Essential (primary) hypertension; E11.40 Type 2 diabetes mellitus with diabetic neuropathy, unspecified
CPT/HCPCS: 36415; 74177; 80053; 81001; 83690; 85025; 87077; 87086; 87186; 96374; 96375; 99285; J0696; J1885

== ENCOUNTER 2025-07-02 09:23 | Emergency (ER) | payer OTHER, MEDICAID, SELFPAY ==
[2025-07-02 09:25] VITALS: BP 164/82; PULSE 55; RESP 18; TEMP 36.8; O2SAT 88; BMI 38.7
--- OUTSIDE RECORDS SUMMARY | 2025-07-02 09:46 | XMS_ITS | Encounter Summary ---
Author Organization [facility] Address [address] [place] [address] Care Team Providers Care Machine Maintenance Servicer Name Role Phone Ramona Galarza DO Primary Care Provider [phone] Reason for Visit * Reason Comments Results Encounter Details Date Type Department Care Team (Late st Contact Info) Description 06/30/2025 Telephone [facility] [place] [address] [place] [address] Ramona Galarza DO [address] [place] [address] Results Social History Tobacco Use Types Packs/Day Years Used Date Smoking Tobacco: Never Passive Smoke Exposure: Never Smokeless Tobacco: Never Alcohol Use Standard Drinks/Week Comments Never 0 (1 standard drink = 0.6 oz pur e alcohol) Comments No Sex and Gender Information Value Date Recorded Sex Assigned at Not on file Legal Sex Female 9:45 PM COOK BOAT Gender Identity Not on file Sexual Orientation Not on file documented as of this encounter Miscellaneous Notes * Telephone Encounter - Jacklyn Graff - 07/01/2025 2:12 PM CDT Copied from [facility] #[id number]. Topic: CPA Information Request - Results >> Jul 01, 2025 2:12 PM Jacklyn Centeno wrote: Caller is requesting information about results from an order. ? Caller Name: pt Callback Number: [phone] (home) Test Name: xrays Results Encounter notes are: Telephone encounter related to results is not available and was completed more than 7 days Verify that caller has called the correct provider that order the test. Did the caller call the correct provider? Yes Call Notes: Results were not given and the patient needs a call back * Telephone Encounter - SegunDomenic villareal Johnie - 06/30/2025 12:29 PM CDT Copied from [facility] #[id number]. Topic: CPA Information Request - Results >> Jun 30, 2025 12:27 PM Domenic Burks wrote: Caller is requesting information about results from an order. ? Caller Name: Elena Salinas Callback Number: [phone] Test Name: XR LUMBAR SPINE 2 OR 3 VW [[id number]] (Order [id number]) Results Encounter notes are: Telephone encounter related to results is not available and was completed more than 7 days Verify that caller has called the correct provider that order the test. Did the caller call the correct provider? Yes Call Notes: Results were not given and the patient needs a call back. She states that she had thesexrays done at [facility] in [place]. She would like to know if those results have been forwarded yet. documented in this encounter Plan of Treatment Upcoming Encounters Date Type Department Care Team (Late st Contact Info) Description 09/25/2025 1:00 PM COOK BOAT Office Visit [facility] [address] [place] [phone] Ramona Galarza, DO [address] [place] [address] 12/25/2025 1:00 PM COOK BOAT Office Visit [facility] [address] [place] [address] Ramona Galarza, DO [address] [place] [address] 03/25/2026 1:20 PM CDT Office Visit [facility] [address] [place] [address] Ramona Galarza DO [address] [place] [address] documented as of this encounter Visit Diagnoses Not on filedocumented in this encounter Care Teams Machine Maintenance Servicer Relationship Specialty Start Date End Date Ramona Galarza DO [address] [facility] [place] [phone] PCP - General Family Practice 02/12/24 documented as of this encounter
--- OUTSIDE RECORDS SUMMARY | 2025-07-02 09:46 | XMS_ITS | Clinical Summary ---
Author Organization [facility] Address [address] [place] [address] Care Team Providers Care Cash Management Clerk Name Role Phone Unavailable Primary Care Provider [...] mouth daily. Active mometasone (NASONEX) 50 mcg/actuation [place], Non-Aerosol daily. A ctive levalbuterol HFA (XOPENEX [...] on file Legal Sex Female 10:27 AM DIRECTOR RADIATION ONCOLOGY Gender Identity Not on file Sexual Orientation [...]
--- OUTSIDE RECORDS SUMMARY | 2025-07-02 09:46 | XMS_ITS | Encounter Summary ---
Author Organization [facility] Address [address] [place] [address] Care Team Providers Care Sandblast Or Shotblast Equipment Tender Name Role Phone Ramona Galarza DO Primary Care Provider [phone] Encounter Details Date Type Department Care Team (Late st Contact Info) Description 07/01/2025 External Device Data [place] ABSTRACTION Provider, Abstract NO ADDRESS ON FILE Social History Tobacco Use Types Packs/Day Years Used Date Smoking Tobacco: Never Passive Smoke Exposure: Never Smokeless Tobacco: Never Alcohol Use Standard Drinks/Week Comments Never 0 (1 standard drink = 0.6 oz pur e alcohol) Comments No Sex and Gender Information Value Date Recorded Sex Assigned at Not on file Legal Sex Female 9:45 PM CONTAINER FILLER Gender Identity Not on file Sexual Orientation Not on file documented as of this encounter Plan of Treatment Upcoming Encounters Date Type Department Care Team (Late st Contact Info) Description 09/25/2025 1:00 PM CONTAINER FILLER Office Visit [facility] [address] [place] [address] Ramona Galarza, DO [address] [place] [address] 12/25/2025 1:00 PM CONTAINER FILLER Office Visit [facility] [address] [place] [address] Ramona Galarza, DO [address] [place] [address] 03/25/2026 1:20 PM CDT Office Visit [facility] [address] [place] [phone] Ramona Galarza DO [address] [place] [address] documented as of this encounter Visit Diagnoses Not on filedocumented in this encounter Care Teams Sandblast Or Shotblast Equipment Tender Relationship Specialty Start Date End Date Ramona Galarza DO [address] [place] [address] PCP - General Family Practice 02/12/24 documented as of this encounter
--- OUTSIDE RECORDS SUMMARY | 2025-07-02 09:46 | XMS_ITS | Encounter Summary ---
Author Organization [facility] Address [address] [place] [address] Care Team Providers Care Filling And Stapling Machine Operator Name Role Phone Ramona Galarza DO Primary Care Provider [phone] Encounter Details Date Type Department Care Team (Latest Contact Info) Description 06/19/2025 Results Follow-Up [facility] [address] [place] [address] Ramona Galarza DO [address] [place] [address] CBC WITH DIFFERENTIAL, COMPREHENSIVE METABOLIC [...] on file Legal Sex Female 9:45 PM CROP FARMERS Gender Identity Not on file Sexual Orientation Not on file documented as of this encounter Plan of Treatment Upcoming Encounters Date Type Department Care Team (Late st Contact Info) Description 09/25/2025 1:00 PM CROP FARMERS Office Visit [facility] [address] [place] [address] Ramona Galarza, DO [address] [place] [address] 12/25/2025 1:00 PM CROP FARMERS Office Visit [facility] [address] [place] [address] Ramona Galarza, DO [address] [place] [address] 03/25/2026 1:20 PM CDT Office Visit [facility] [address] [place] [address] Ramona Galarza DO [address] [place] [address] documented as of this encounter Visit Diagnoses Not on filedocumented in this encounter Care Teams Filling And Stapling Machine Operator Relationship Specialty Start Date End Date Ramona Galarza DO [address] [place] [phone] PCP - General Family Practice 02/12/24 documented as of this encounter
--- OUTSIDE RECORDS SUMMARY | 2025-07-02 09:46 | XMS_ITS | Clinical Summary ---
Author Organization [facility] Address [address] [place] [address] Care Team Providers Care Manager Of Broadcast Content Name Role Phone Ramona Galarza DO Primary Care Provider [phone] Allergies No known active allergies Medications loratadine/pseu [...] Tablet 1 Active naloxone (NARCAN) 4 mg/spray [place], Non-Aerosol EMERGENCY USE ONLY: Administer 1 spray [...] Encounters Date Type Department Care Team Description 07/02/2025 External Device Data [facility] ABSTRACTION Provider, Abstract 07/01/2025 External Device Data [place] ABSTRACTION Provider, Abstract 07/01/2025 External Device Data [place] ABSTRACTION Provider, Abstract 06/30/2025 Telephone [facility] [address] [place] [address] Ramona Galarza DO Results 06/23/2025 Refill [facility] [address] [place] [address] Ramona Galarza, Chronic midline low back pain with bilateral sciatica (Primary Dx) 06/19/2025 Results Follow-Up [facility] [address] [place] [address] Ramona Galarza DO CBC WITH DIFFERENTIAL, COMPREHENSIVE METABOLIC PANEL, TSH, Additional followed-up results: 4 06/19/2025 Telephone [facility] [address] [place] [address] Ramona Galarza DO Medication Assistance 06/18/2025 2:20 PM CDT Office Visit [facility] [address] [place] [address] Ramona Galarza DO Injury of low back, subsequent encounter (Primary Dx); Type 2 diabetes mellitus without complication, without long-term current use of insulin ([facility]); Chronic midline low back pain with bilateral sciatica; Essential hypertension; Bilateral lower extremity edema; Mixed hyperlipidemia; Morbid obesity with body mass index of 40.0-49.9 ([facility]); Frail elderly; Vitamin B12 deficiency (non anemic) 06/10/2025 Telephone [facility] [address] [place] [address] Ramona Galarza, Provider Call 06/09/2025 Refill [facility] [address] [place] [address] Ramona Galarza, 04/10/2025 Orders Only [facility] [address] [place] [address] Ramona Galarza, DO Type 2 diabetes mellitus without complication, without long-term current use of insulin ([facility]) from Last 3 Months Immunizations Immunization [...] on file Legal Sex Female 9:45 PM REHABILITATION MANAGER Gender Identity Not on file Sexual [...] st Contact Info) Description 09/25/2025 1:00 PM REHABILITATION MANAGER Office Visit [facility] [address] [facility] [place] [address] Ramona Galarza, DO [address] [place] [address] 12/25/2025 1:00 PM REHABILITATION MANAGER Office Visit [facility] [address] [facility] [place] [address] Ramona Galarza, DO [address] [facility] [place] [address] 03/25/2026 1:20 PM CDT Office Visit [facility] [address] [facility] [place] [address] Ramona Galarza, DO [address] [place] [address] Health Maintenance Due Date Last Done Comments [...] 12/14/2020, 12/14/2020, Additional history exists COVID-19 Vaccine (2023-2 5 season) 2024 07/15/2021, 06/17/2021 Medicare Advantage [...] MICROALBUMIN ANNUAL SCREEN 06/18/2026 06/18/2025, 09/19/2024, 01/27/2021 LDL CHOLESTEROL ANNUAL 06/18/2026 , 08/24/2021, 01/27/2021, Additional history exists Procedures Procedure Name Priority Date/Time Associated Diagnosis Comments MICROALBUMIN/CREATININ E RATIO, RANDOM UR Routine 06/18/2025 3:36 PM CDT Type 2 diabetes mellitus without complication, without long-term current use of insulin ([facility]) VITAMIN B12 LEVEL Routine 06/18/2025 2:4 9 PM CDT Type 2 diabetes mellitus without complication, without long-term current use of insulin (CMS/HCC) Vitamin B12 deficiency (non anemic) HEMOGLOBIN A1C Routine 06/18/2025 2:49 PM CDT Type 2 diabetes mellitus without complication, without long-term current use of insulin ([facility]) LIPID PANEL Routine 06/18/2025 2:49 PM CDT Type 2 diabetes mellitus without complication, without long-term current use of insulin ([facility]) TSH Routine 06/18/2025 2:49 PM CDT Type 2 diabetes mellitus without complication, without long-term current use of insulin (CMS/HCC) COMPREHENSIVE METABOLIC PANEL Routine 06/18/2025 2:49 PM CDT Type 2 diabetes mellitus without complication, without long-term current use of insulin (CMS/HCC) CBC WITH DIFFERENTIAL Routine 06/18/2025 2:49 PM CDT Type 2 diabetes mellitus without complication, without long-term current use of insulin (CMS/[facility]) HM DIABETES EYE EXAM Routine 12/14/2020 from Last 3 Months or Most Recently Relevant to Health Maintenance Results * (ABNORMAL) MICROALBUMIN/CREATININE RATIO, RANDOM UR (06/18/2025 3:36 PM CDT) CREATININE, URINE 89 20 - 275 mg/dL [facility] ALBUMIN, URINE 9.9 See Note: mg/dL [facility] Comment: Reference Range: Reference Range Not established ALB/CREAT RATIO, URINE 111(H) <30 mg/g creat [facility] Comment: The ADA defines abnormalities in [...] category. FASTING:UNKNOWN FASTING: UNKNOWN Test Performed at: [facility] [address] [place] [address] Cody Faith MD Urine URINE SPECIMEN OBTAINED BY CLEAN CATCH PROCEDURE / Unknown 06/18/2025 3:36 PM CDT 06/19/2025 3:15 AM CDT us Ramona Galarza DO URINE ORDERABLES Final Resu lt [facility] [phone] [facility] [address] [place] [address] * (ABNORMAL) CBC WITH DIFFERENTIAL (06/18/2025 2:49 PM CDT) WBC 10.3 3.8 - 10.8 Thousand/u L [...] Comment: FASTING:UNKNOWN FASTING: UNKNOWN Test Performed at: [facility] [address] [facility] [place] [address] Cody Faith MD Blood 06/18/2025 2:49 PM CDT 06/18/2025 2:49 PM CDT Ramona Young BunchMichell DO HEMATOLOGY ORDERABLES Final Result Performing Organization Address [facility] Co de Phone Number [facility] [phone] [facility] [address] [place] [address] * TSH (06/18/2025 2:49 PM CDT) [facility] TSH 1.80 0.40 - 4.50 mIU/L [facility] Comment: Test Performed at: [facility] [address] [place] [address] Cody Faith MD Blood 06/18/2025 2:49 PM CDT 06/18/2025 2:49 PM CDT Ramona Young Galarza DO CHEMISTRY ORDERABLES Final Result Performing Organization Address [facility] Co de Phone Number [facility] [phone] [facility] [address] [place] [address] * (ABNORMAL) HEMOGLOBIN A1C (06/18/2025 2:49 PM CDT) [facility] HEMOGLOBIN A1C 6.3(H) <5.7 % [facility] Comment: For someone without known diabetes, [...] Comment: FASTING:UNKNOWN FASTING: UNKNOWN Test Performed at: [facility] [id number] [place] [address] [place] [address] Cody Faith MD Blood 06/18/2025 2:49 PM CDT 06/18/2025 2:[address] [facility] CHEMISTRY ORDERABLES Final Result Performing Organization Address [facility] Co de Phone Number [facility] [phone] [facility] [place] [address] * VITAMIN B12 LEVEL (06/18/2025 2:49 PM CDT) [facility] VITAMIN B12 383 200 - 1100 pg/mL [...] pg/mL will have symptoms. Test Performed at: [facility] [place] [address] Cody Faith MD Blood 06/18/2025 2:49 PM CDT 06/18/2025 2:49 PM CDT Ramona Galarza CHEMISTRY ORDERABLES Final Result Performing Organization Address [facility] Co de Phone Number [facility] [phone] [facility] [address] [facility] [place] [address] * (ABNORMAL) LIPID PANEL (06/18/2025 2:49 PM CDT) [facility] CHOLESTEROL 172 <200 mg/dL [facility] [...] of LDL-C. Da ALEJANDRA et al. AMY. 2013;310(88): 7160-7520 (http://education.Shootitlive/faq/YVS394) CHOL/HDL RATIO 3.4 <5.0 (calc) [facility] NON-HDL CHOLESTEROL 121 <130 mg/dL (calc) [facility] Comment: For patients with diabetes plus 1 major ASCVD risk factor, treating to a non-HDL-C goal of <100 mg/dL (LDL-C of <70 mg/dL) is considered a therapeutic option. Test Performed at: [facility] [address] [place] [address] Cody Faith MD Blood 06/18/2025 2:49 PM CDT 06/18/2025 2:49 PM CDT us Ramona Galarza DO CHEMISTRY ORDERABLES Final Result [facility] [phone] [facility] [address] [place] [address] * COMPREHENSIVE METABOLIC PANEL (06/18/2025 2:49 PM CDT) Pathologist [facility] GLUCOSE 67 65 - 99 mg/dL [facility] Comment: Fasting reference interval BUN 25 7 - 25 mg/dL [facility] CREATININE 0.98 0.60 - 1.00 mg/dL [facility] GFR 61 > OR = 60 mL/min/1. 73m2 [facility] BUN/CREAT RATIO SEE NOTE: 6 - 22 (calc) [facility] Comment: Not Reported: BUN and Creatinine [...] Comment: FASTING:UNKNOWN FASTING: UNKNOWN Test Performed at: [facility] [address] [place] [address] Cody Faith MD Blood 06/18/2025 2:49 PM CDT 06/18/2025 2:49 PM CDT us Ramona Galarza DO CHEMISTRY ORDERABLES Final Result [facility] [phone] [facility] [address] [place] [address] * DIABETES EYE EXAM (12/14/2020) us Abstract Provider HEALTH MAINTENANCE Final Resul t from Last 3 Months or Most Recently Relevant to Health Maintenance Insurance MEDICAID [facility] DUAL COMPLETE PPO DSNP [facility] [address] Advance Directives For more information, please contact: [phone] * Full Code (Latest Code Status on File) Date Activated Date Inactivated Comments 02/07/2024 11:36 PM 02/10/2024 1:11 PM Care Teams Manager Of Broadcast Content Relationship Specialty Start Date End Date Ramona Galarza DO [address] [place] [address] PCP - General Family Practice 02/12/24
--- OUTSIDE RECORDS SUMMARY | 2025-07-02 09:46 | XMS_ITS | Encounter Summary ---
Author Organization [facility] Address [address] [place] [address] Care Team Providers Care Respiratory Tech Name Role Phone Ramona Galarza DO Primary Care Provider [phone] Reason for Visit * Reason Comments Provider Call Encounter Details Date Type Department Care Team (Late st Contact Info) Description 06/10/2025 Telephone [facility] [place] [address] [place] [address] Ramona Galarza DO [address] [place] [address] Provider Call Social History Tobacco Use Types Packs/Day Years Used Date Smoking Tobacco: Never Passive Smoke Exposure: Never Smokeless Tobacco: Never Alcohol Use Standard Drinks/Week Comments Never 0 (1 standard drink = 0.6 oz pur e alcohol) Comments No Sex and Gender Information Value Date Recorded Sex Assigned at Not on file Legal Sex Female 9:45 PM BOARDING HOUSE COOK Gender Identity Not on file Sexual Orientation Not on file documented as of this encounter Miscellaneous Notes * Telephone Encounter - GroveMike lewis Luiza - 06/10/2025 3:55 PM CDT Copied from [facility] #[id number]. Topic: Znpofuiy-Eg-Jeirsqqw Call >> Jun 10, 2025 3:54 PM Mike Hermosillo wrote: Caller is requesting to speak with Clinical Care Team. Caller Name: [facility] Callback Number: [phone] Is the caller a Physician, Nurse Practitioner or Physician Tandem Mill Sticker? No Call Notes: sent over a clinical recommendation on 05/02 and they have since resent it. Calling to get an update on this? Is this addressing an immediate patient care need? No documented in this encounter Plan of Treatment Upcoming Encounters Date Type Department Care Team (Late st Contact Info) Description 09/25/2025 1:00 PM BOARDING HOUSE COOK Office Visit [facility] [address] [place] [facility] [place] [address] Ramona Galarza, DO [address] [place] [address] 12/25/2025 1:00 PM BOARDING HOUSE COOK Office Visit [facility] [address] [facility] [place] [address] Ramona Galarza, DO [address] [facility] [place] [address] 03/25/2026 1:20 PM CDT Office Visit [facility] [address] [facility] [place] [address] Ramona Galarza, DO [address] [place] [address] documented as of this encounter Visit Diagnoses Not on filedocumented in this encounter Care Teams Respiratory Tech Relationship Specialty Start Date End Date Ramona Galarza DO [address] [facility] [place] [address] PCP - General Family Practice 02/12/24 documented as of this encounter
--- OUTSIDE RECORDS SUMMARY | 2025-07-02 09:46 | XMS_ITS | Encounter Summary ---
Author Organization [facility] Address [address] [place] [address] Care Team Providers Care Associate Artistic Director Name Role Phone Ramona Galarza DO Primary Care Provider [phone] Encounter Details Date Type Department Care Team [...] on file Legal Sex Female 9:45 PM DRY LUMBER GRADER Gender Identity Not on file Sexual Orientation Not on file documented as of this encounter Plan of Treatment Upcoming Encounters Date Type Department Care Team (Late st Contact Info) Description 09/25/2025 1:00 PM DRY LUMBER GRADER Office Visit [facility] [address] [place] [address] Ramona Galarza, DO [address] [place] [address] 12/25/2025 1:00 PM DRY LUMBER GRADER Office Visit [facility] [address] [place] [address] Ramona Galarza, DO [address] [place] [address] 03/25/2026 1:20 PM CDT Office Visit [facility] [address] [place] [phone] Ramona Galarza DO [address] [place] [phone] documented as of this encounter Visit Diagnoses Not on filedocumented in this encounter Care Teams Associate Artistic Director Relationship Specialty Start Date End Date Ramona Galarza DO [address] [place] [phone] PCP - General Family Practice 02/12/24 documented as of this encounter
--- OUTSIDE RECORDS SUMMARY | 2025-07-02 09:46 | XMS_ITS | Encounter Summary ---
Author Organization [facility] Address [address] [place] [address] Care Team Providers Care Air Twist Operator Name Role Phone Ramona Galarza DO Primary Care Provider [phone] Encounter Details Date Type Department Care Team (Late st Contact Info) Description 07/02/2025 External Device Data STL ABSTRACTION [...] on file Legal Sex Female 9:45 PM RETAIL BUSINESS ANALYST Gender Identity Not on file Sexual Orientation Not on file documented as of this encounter Plan of Treatment Upcoming Encounters Date Type Department Care Team (Late st Contact Info) Description 09/25/2025 1:00 PM RETAIL BUSINESS ANALYST Office Visit [facility] [address] [place] [phone] Ramona Galarza, DO [address] [place] [address] 12/25/2025 1:00 PM RETAIL BUSINESS ANALYST Office Visit [facility] [address] [place] [address] Ramona Galarza, DO [address] [place] [address] 03/25/2026 1:20 PM CDT Office Visit [facility] [address] [place] [phone] Ramona Galarza DO [address] [place] [phone] documented as of this encounter Visit Diagnoses Not on filedocumented in this encounter Care Teams Air Twist Operator Relationship Specialty Start Date End Date Ramona Galarza DO [address] [place] [phone] PCP - General Family Practice 02/12/24 documented as of this encounter
--- NOTE | 2025-07-02 09:50 | XR_ITS ---
WS: [id number] Portable AP upright chest, 07/02/2025 Clinical Data: dyspnea/cough Comparison: Portable chest, 02/04/2025 Findings: No nodules, masses or effusions are seen. The heart is normal. The pulmonary vascularity is not increased. No pneumonia or pneumothorax is seen. The right diaphragm remains elevated and unchanged. The aortic arch shows mild tortuosity. 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 XR/XR chest 1V portable [id number] Impression: 1. No change in elevation of the right diaphragm. 2. Atherosclerosis.
--- NOTE | 2025-07-02 09:50 | W.ED.FEMALGU ---
HPI - Female Genitourinary General: Chief complaint: Urogenital-Female Stated complaint: Poss UTI History of Present Illness: 75-year-old female presents emergency room with complaints of right flank pain difficulty with initiating urination. Recently seen in UTI started on oral antibiotics on arrival here is mildly hypoxic normally is not using oxygen is not requiring 2 L. No hematuria no chest pain no productive cough worse with movement Associated symptoms: Deny abdominal pain Related Data Home Medications ?Medication ?Instructions ?Recorded ?Confirmed levalbuterol tartrate 45 2 puff inhalation Q6H PRN 07/01/22 06/17/25 mcg/actuation aerosol inhaler Shortness Of Breath oxycodone 15 mg tablet 15 mg PO Q4H PRN Pain 07/01/22 06/17/25 ondansetron 8 mg disintegrating 8 mg PO Q6H PRN Nausea And Vomiting 12/27/24 06/17/25 tablet cyanocobalamin (vitamin B-12) 1,000 mcg SUBCUT .Q30D 01/18/25 06/17/25 1,000 mcg/mL injection solution ergocalciferol (vitamin D2) 1,250 50,000 unit PO Q7D 01/18/25 06/17/25 mcg (50,000 unit) capsule famotidine 20 mg tablet 20 mg PO BID 01/18/25 06/17/25 simvastatin 40 mg tablet 40 mg PO DAILY 01/18/25 06/17/25 hydralazine 50 mg tablet mg PO 03/20/25 06/17/25 Previous Rx's ?Medication ?Instructions ?Recorded glucometer testing kit #1 ea 09/18/22 glucometer testing kit #1 ea 09/18/22 lisinopril 40 mg tablet 40 mg PO DAILY #30 tabs 02/06/25 insulin degludec 100 unit/mL (3 25 unit (0.25 mL) SUBCUT QAM #15 mL 02/21/25 mL) subcutaneous pen (Tresiba FlexTouch U-100 insulin) gabapentin 800 mg tablet See Rx Instructions .Route 03/31/25 .COMPLEX #270 tabs glipizide 10 mg tablet, extended 10 mg PO DAILY #90 tabs 03/31/25 release 24 hr magnesium oxide 400 mg (241.3 mg 400 mg PO DAILY #90 tabs 03/31/25 magnesium) tablet metformin 1,000 mg tablet 1,000 mg PO BID #180 tabs 03/31/25 metoprolol tartrate 50 mg tablet 50 mg PO BID #180 tabs 03/31/25 rivaroxaban 10 mg tablet (Xarelto) 10 mg PO DAILY #90 tabs 03/31/25 amlodipine 10 mg tablet See Rx Instructions .Route 05/02/25 .COMPLEX #90 tabs fenofibrate 160 mg tablet See Rx Instructions .Route 05/02/25 .COMPLEX #90 tabs hydralazine 100 mg tablet See Rx Instructions .Route 05/25/25 .COMPLEX #90 tabs syringe with needle 3 mL 25 gauge #1 ea 05/25/25 x 1 (BD Luer-Beth Syringe) cefdinir 300 mg capsule 300 mg PO BID 10 days #20 caps 06/29/25 ondansetron 4 mg disintegrating 4 mg PO TID PRN nausea and 06/29/25 tablet vomiting #15 tabs methylprednisolone 4 mg tablets in See Rx Instructions PO .COMPLEX 07/02/25 a dose pack (Medrol (Chris)) #21 ea oxygen 2L via NC #1 ea 07/02/25 Allergies Allergy/AdvReac Type Severity Reaction Status Date / Time No Known Allergies Allergy Verified 06/17/25 09:08 Review of Systems Const: Denies: fever(s) or chills Card: Denies: chest pain Resp: Denies: dyspnea GI: Denies: abdominal pain : Denies: dysuria, urinary frequency or urinary urgency Musc: Denies: neck pain or back pain Skin/Breast: Denies: rash PFSH ED PFSH: Medical History Obesity Acute hypoxemic respiratory failure COVID-19 NOEMI (acute kidney injury) Type 2 diabetes mellitus B12 deficiency Vitamin D deficiency GERD (gastroesophageal reflux disease) Atrial fibrillation Cholecystitis Abnormal transaminases Cholelithiasis Acute encephalopathy Acute cystitis Wound of right foot Type 2 diabetes mellitus without complications Obesity, unspecified Chronic osteoarthritis Bunion of right foot Encounter for counseling for care management of patient with chronic conditions and complex health needs using nurse-based model Seasonal allergies Gastro-esophageal reflux disease without esophagitis Neuropathy Dyslipidemia Chronic back pain Essential (primary) hypertension Surgical History Hx of knee surgery (~10/2000) left Family History Mother Cancer colon Father Cancer pancreatic Family/Other CAD (coronary artery disease) Social History Smoking and tobacco/nicotine status: never used tobacco/nicotine Second hand smoke exposure: No Alcohol intake: never Substance/Drug Use: never Lives independently: Yes Household members: significant other Marital status: Life Partner Current occupational status: retired Current gender identity: Female Physical Exam Const: COMMON NORMALS: no acute distress GENERAL APPEARANCE: cooperative and comfortable ORIENTATION/CONSCIOUSNESS: Yes awake, Yes oriented to person, Yes oriented to place and Yes oriented to time HENMT: COMMON NORMALS: normocephalic, atraumatic and hearing grossly normal bilaterally HEAD & SCALP: normocephalic and atraumatic Resp: COMMON NORMALS: normal respiratory effort, No retractions, No use of accessory muscles and clear to auscultation bilaterally AUSCULTATION: clear to auscultation bilaterally Cardio: COMMON NORMALS: regular rate, regular rhythm and No murmurs present (Cardio) RATE: regular rate RHYTHM: regular rhythm GI: COMMON NORMALS: Soft to palpation and No hepatosplenomegaly present AUSCULTATION: Yes normoactive bowel sounds PALPATION: Yes Soft to palpation, No Tenderness to palpation present (GI), No Guarding due to palpation present (GI) and Yes No hepatosplenomegaly present Extremity: COMMON NORMALS: normal to inspection, capillary refill normal, no clubbing, cyanosis or edema, no calf tenderness and no pedal edema Neuro: SENSORIUM/ORIENTATION: Yes oriented to person, Yes oriented to place and Yes oriented to time Skin: COMMON NORMALS: no rashes or lesions noted GENERAL SKIN EXAM: no rashes or lesions noted Course Vital Signs: Vital signs: Vital Signs Temperature 98.2 F 07/02/25 09:25 Pulse Rate 54 L 07/02/25 11:33 Respiratory Rate 18 07/02/25 13:06 Blood Pressure 149/62 07/02/25 11:33 Pulse Oximetry 93 07/02/25 13:06 Oxygen Delivery Me thod Room Air 07/02/25 10:30 MDM - Female Medical Decision Making Pain somewhat reproducible with movement and palpation. No signs of UTI on urine no hematuria white count normal liver functions normal she did not have any focal right upper quadrant tenderness. Potassium is a little bit elevated I believe this is due to blood draw. Suspect her symptoms are mostly musculoskeletal in nature prednisone taper continue to use oxycodone she has previously been prescribed and to have her follow-up with her primary care doctor as needed Lab Data 07/02/25 11:27 07/02/25 10:49 Radiology Impressions Chest X-Ray 07/02/25 09:50 Impression: 1. No change in elevation of the right diaphragm. 2. Atherosclerosis. Laboratory Results WBC 7.93 10^3/uL (3.29-11.43) 07/02/25 11:27 Corrected WBC Cancelled 07/02/25 10:49 RBC 4.30 10^6/uL (3.85-5.65) 07/02/25 11:27 Hgb 12.40 g/dL (11.27-16.99) 07/02/25 11:27 Hct 40.8 % (36-47) 07/02/25 11:27 MCV 94.9 fl (85-98) 07/02/25 11:27 MCH 28.8 pg (27-33) 07/02/25 11:27 MCHC 30.4 g/dL (30-55) 07/02/25 11:27 RDW 15.7 % (12.1-15.1) H 07/02/25 11:27 Plt Count 237 10^3/cmm (157-399) 07/02/25 11:27 MPV 10.2 fL (7.4-10.4) 07/02/25 11:27 Gran % Cancelled 07/02/25 10:49 Neut % (Auto) 68.9 % 07/02/25 11:27 Lymph % (Auto) 19.8 % 07/02/25 11:27 [place] % (Auto) 7.9 % 07/02/25 11:27 Eos % (Auto) 2.5 % 07/02/25 11:27 Baso % (Auto) 0.4 % 07/02/25 11:27 Neut # (Auto) 5.46 10^3/uL (1.8-7.7) 07/02/25 11:27 Lymph # (Auto) 1.6 10^3/uL (0.8-4.8) 07/02/25 11:27 [place] # (Auto) 0.6 10^3/uL (0.2-0.9) 07/02/25 11:27 Eos # (Auto) 0.2 10^3/uL (0.0-0.8) 07/02/25 11:27 Baso # (Auto) 0.0 10^3/uL (0.0-0.1) 07/02/25 11:27 Absolute Gran (auto) Cancelled 07/02/25 10:49 Nucleated RBC % (auto) 0 % 07/02/25 11:27 Nucleated RBCs # 0.0 /100WBC 07/02/25 11:27 Sodium 136 mmol/L (136-145) 07/02/25 10:49 Potassium 5.2 mmol/L (3.5-5.1) H 07/02/25 10:49 Chloride 106 mmol/L (98-107) 07/02/25 10:49 Carbon Dioxide 19 mmol/L (22-29) L 07/02/25 10:49 Anion Gap 16.2 (5-19) 07/02/25 10:49 BUN 35 mg/dL (8-23) H 07/02/25 10:49 Creatinine 1.1 mg/dL (0.5-0.9) H 07/02/25 10:49 GFR Calculation Not Reportable 07/02/25 10:49 Glucose 97 mg/dL (65-115) 07/02/25 10:49 Calculated Osmolality 290 mOsm/kg (285-295) 07/02/25 10:49 Calcium 8.9 mg/dL (8.5-10.5) 07/02/25 10:49 Urine Color Yellow (Yellow) 07/02/25 12:10 Urine Appearance Clear (CLEAR) 07/02/25 12:10 Urine pH 5.0 (5-7) 07/02/25 12:10 Ur Specific [place] 1.030 (1.005-1.030) 07/02/25 12:10 Urine Protein Negative (Negative) 07/02/25 12:10 Urine Glucose (UA) Negative (Normal) 07/02/25 12:10 Urine Ketones Trace (Negative) 07/02/25 12:10 Urine Blood Negative (Negative) 07/02/25 12:10 Urine Nitrate Negative (Negative) 07/02/25 12:10 Urine Bilirubin Negative (Negative) 07/02/25 12:10 Urine Urobilinogen 1.0 mg/dL (Negative) 07/02/25 12:10 Ur Leukocyte Esterase Negative (Negative) 07/02/25 12:10 Urine RBC 0-2 /hpf (0-2) 07/02/25 12:10 Urine WBC 0-5 /hpf (0-5) 07/02/25 12:10 Ur Squamous Epith Cells 0-5 /hpf (0-5) 07/02/25 12:10 Amorphous Sediment Not Reportable 07/02/25 12:10 Urine Bacteria None seen /hpf (NONE) 07/02/25 12:10 Hyaline Casts 1.21 /lpf 07/02/25 12:10 All radiology interpretation(s) finalized by discharge Discharge Plan Discharge Patient Disposition: Home Clinical Impression: Right flank pain Condition: Stable Prescriptions: New methylprednisolone [Medrol (Chris)] 4 mg tablets,dose pack See Rx Instructions .ROUTE .COMPLEX Qty: 21 0RF Rx Instructions: orally per package directions No Action hydralazine 50 mg tablet PO (DME) oxygen 2L via NC See Rx Instructions .Route .MEDSUPPLY Qty: 1 0RF Rx Instructions: As directed insulin degludec [Tresiba FlexTouch U-100] 100 unit/mL (3 mL) insulin pen 25 unit SUBCUT QAM Qty: 15 5RF magnesium oxide 400 mg (241.3 mg magnesium) tablet 400 mg PO DAILY Qty: 90 0RF metformin 1,000 mg tablet 1,000 mg PO BID Qty: 180 0RF glipizide 10 mg tablet extended release 24hr 10 mg PO DAILY Qty: 90 0RF Xarelto 10 mg tablet 10 mg PO DAILY Qty: 90 0RF metoprolol tartrate 50 mg tablet 50 mg PO BID Qty: 180 0RF gabapentin 800 mg tablet See Rx Instructions .ROUTE .COMPLEX Qty: 270 1RF Dose Instruction: TAKE ONE TABLET BY MOUTH THREE TIMES DAILY Rx Instructions: TAKE ONE TABLET BY MOUTH THREE TIMES DAILY amlodipine 10 mg tablet See Rx Instructions .ROUTE .COMPLEX Qty: 90 1RF Dose Instruction: TAKE ONE TABLET BY MOUTH DAILY Rx Instructions: TAKE ONE TABLET BY MOUTH DAILY fenofibrate 160 mg tablet See Rx Instructions .ROUTE .COMPLEX Qty: 90 1RF Dose Instruction: TAKE ONE TABLET BY MOUTH DAILY Rx Instructions: TAKE ONE TABLET BY MOUTH DAILY hydralazine 100 mg tablet See Rx Instructions .ROUTE .COMPLEX Qty: 90 2RF Dose Instruction: TAKE ONE TABLET BY MOUTH THREE TIMES DAILY Rx Instructions: TAKE ONE TABLET BY MOUTH THREE TIMES DAILY (DME) BD Luer-Beth Syringe 3 mL 25 gauge x 1 syringe See Rx Instructions .ROUTE .COMPLEX Qty: 1 5RF Dose Instruction: USE ONE SYRINGE MONTHLY TO INJECT B12 Rx Instructions: USE ONE SYRINGE MONTHLY TO INJECT B12 (DME) glucometer testing kit See Rx Instructions .Route .MEDSUPPLY Qty: 1 0RF Rx Instructions: Glucometer testing kit, check blood sugars 3 times daily -Lancets #100, strips #100 (DME) glucometer testing kit See Rx Instructions .Route .MEDSUPPLY Qty: 1 0RF Rx Instructions: Glucometer testing kit, check blood sugars 3 times daily, after meals based on sliding scale provided Lancets #100 Strips #100 cefdinir 300 mg capsule 300 mg PO BID 10 Days Qty: 20 0RF ondansetron 4 mg tablet,disintegrating 4 mg PO TID PRN (Reason: nausea and vomiting) Qty: 15 0RF oxycodone 15 mg tablet 15 mg PO Q4H PRN (Reason: Pain) levalbuterol tartrate 45 mcg/actuation HFA aerosol inhaler 2 puff INHALATION Q6H PRN (Reason: Shortness Of Breath) ondansetron 8 mg tablet,disintegrating 8 mg PO Q6H PRN (Reason: Nausea And Vomiting) simvastatin 40 mg tablet 40 mg PO DAILY famotidine 20 mg tablet 20 mg PO BID cyanocobalamin (vitamin B-12) 1,000 mcg/mL solution 1,000 mcg SUBCUT .Q30D ergocalciferol (vitamin D2) 1,250 mcg (50,000 unit) capsule 50,000 unit PO Q7D Rx Instructions: Monday lisinopril 40 mg tablet 40 mg PO DAILY Qty: 30 0RF Discharge Orders: Discharge ED (Routine); Ordered 07/02/25 Ordered By: Mark Reyes Referrals: Sheri Black, [facility] [employer] [Primary Care Provider, Family Practice] Discharge Diet: Usual diet Discharge Activity: Increase activity as tolerated Patient Instructions: Opioid Safety, Pain Management, Patient Portal & Martin Instructions Activity Restrictions/Additional Instructions: Thank you for choosing [facility] for your healthcare needs today. It is very important that you follow up as instructed or that you return to the Emergency Department should you have concerns or if your condition changes or worsens in any way. You are seen in the emergency room with complaint of right flank pain. Your laboratory test did not show any elevation of white count here other tests did not show any clinically significant abnormality. There is a slight elevation in your potassium is likely from result of blood draw. Urine did not show signs of infection chest x-ray was normal. Suspect that your pain is musculoskeletal in nature. You can use the oxycodone you are previously prescribed also given a short course of steroids follow-up with your primary care doctor if your pain persists. Print Language: Turkmen Coding Level of Care Code ED Manager Neonatal for Jorje Blackmon
--- NOTE | 2025-07-02 09:57 | ECG_ITS ---
[facility] Test Date: 2025-07-02 Pat Name: Elena Salinas Department: Room: Gender: Female Insurance Compliance Analyst: : [id number] Requested By: Mark Vidal Order Number: [id number] Sendy MD: Samir Hendrickson M.D. Measurements Intervals [place] Rate: 52 P: 28 DC: 228 QRS: -21 QRSD: 90 T: 22 QT: 404 QTc: 377 Interpretive Statements SINUS BRADYCARDIA WITH FIRST DEGREE AV BLOCK BORDERLINE LEFT AXIS DEVIATION [QRS AXIS < -20] Compared to ECG 02/04/2025 21:50:56 First degree AV block now present Sinus tachycardia no longer present Left ventricular hypertrophy no longer present Myocardial infarct finding no longer present Electronically Signed On 07-05-2025 08:53:25 CDT by Samir Hendrickson M.D. [email or web address]
[2025-07-02 10:03] VITALS: BP 164/82; PULSE 54; RESP 16; O2SAT 98
[2025-07-02 10:30] VITALS: BP 142/71; PULSE 55; RESP 16; O2SAT 97
[2025-07-02 11:21] LABS: Anion Gap 16.2 (5-19); Blood Urea Nitrogen 35 mg/dL (8-23); Calcium 8.9 mg/dL (8.5-10.5); Carbon Dioxide 19 mmol/L (22-29); Chloride 106 mmol/L (98-107); Creatinine Clr Calc Pharmacy 48.5384; Glucose 97 mg/dL (65-115); Osmolality Calculated 290 mOsm/kg (285-295); Potassium 5.2 mmol/L (3.5-5.1); Sodium 136 mmol/L (136-145)
[2025-07-02 11:33] VITALS: BP 149/62; PULSE 54; RESP 16; O2SAT 98
[2025-07-02 11:41] LABS: Hematocrit 40.8 % (36-47); Hemoglobin 12.40 g/dL (11.27-16.99); Mean Corpuscular HGB Conc 30.4 g/dL (30-55); Mean Corpuscular Hemoglobin 28.8 pg (27-33); Mean Corpuscular Volume 94.9 fl (85-98); Nucleated Red Blood Cells % 0 %; Platelet Count 237 10^3/cmm (157-399); Red Blood Count 4.30 10^6/uL (3.85-5.65); White Blood Count 7.93 10^3/uL (3.29-11.43)
[2025-07-02 12:34] LABS: Glucose Urine UA Negative (Normal); Nitrate Urine Negative (Negative); Specific Gravity, Urine 1.030 (1.005-1.030)
[2025-07-02 12:39] LABS: Add Urine Microscopic? YES
[2025-07-02 13:06] VITALS: RESP 18; O2SAT 93
[2025-07-02] MEDS: morphine 4 mg/mL SDV 1 mL 2 MG IVP (13:06)
[2025-07-02 14:12] VITALS: BP 149/64; PULSE 56; RESP 16; O2SAT 91
== END 2025-07-02 14:10 | disposition home or self-care (01) ==
PROVIDERS: Emergency Provider Family Medicine; PCP Nurse Practitioner Family
DX: R10.9 Unspecified abdominal pain (principal); R39.198 Other difficulties with micturition; Z79.4 Long term (current) use of insulin; Z79.84 Long term (current) use of oral hypoglycemic drugs; I10 Essential (primary) hypertension; E78.5 Hyperlipidemia, unspecified; E11.40 Type 2 diabetes mellitus with diabetic neuropathy, unspecified
CPT/HCPCS: 36415; 71045; 80048; 81001; 85025; 93005; 96374; 99285; J2270

== ENCOUNTER 2025-07-21 11:30 | Outpatient (CLI) | payer OTHER, MEDICAID, SELFPAY ==
--- NOTE | 2025-07-21 11:45 | MR_ITS ---
WS: [id number] MRI LUMBAR SPINE NONCONTRAST HISTORY: M54.50 - Low back pain, unspecified COMPARISON: 02/20/2017, CT 02/04/2025, 06/29/2025 TECHNIQUE: Sagittal and axial multisequence imaging is submitted. Mild degenerative scoliosis lumbar spine. There is significant loss of disc space height throughout the lumbar spine. Large endplate osteophytes. There is a small amount of marrow edema in the adjacent endplates of T12 and L1. Mild anterior wedging of T10. There is edema incompletely visualized within the T10 vertebral body. Conus terminates normally at L1-2 disc level. T12-L1: Annular disc bulging, osteophytic ridging and facet arthritis. Mild central, subarticular recess and foraminal stenosis. L1-L2: Diffuse annular disc bulging, osteophytic ridging and facet arthritis. Facet joint arthritis encroaching on the posterior lateral thecal sac. Moderate central, subarticular recess and foraminal stenosis. L2-L3: Slight retrolisthesis of L2. Diffuse asymmetric disc bulging with osteophytic ridging, ligamentum flavum and facet arthritis. Severe LEFT subarticular recess stenosis. Moderate to severe central, subarticular recess and foraminal stenosis. L3-L4: Diffuse osteophytic ridging with annular disc bulging. Moderate central, subarticular recess and foraminal stenosis. Slightly greater stenosis LEFT subarticular recess and LEFT foramen. L4-L5: Diffuse disc bulging with facet and ligamentum flavum hypertrophy. Osteophytic ridging. Severe central, bilateral subarticular recess and moderate foraminal stenosis. L5-S1: Annular disc bulging with a central disc osteophyte complex. Severe central, bilateral subarticular recess and LEFT foraminal stenosis. Moderate RIGHT foraminal stenosis. Only partially visualized T10 vertebral body. There is marrow edema and the loss of height identified at T10 appears to be an acute fracture seen on the prior CT of 06/29/2025. T10 fracture was not present on the prior CT of 02/04/2025. MR/MR lumbar spine wo con* [id number] IMPRESSION: 1. New endplate marrow edema at T12 and L1. Consistent with trabecular injury. Slight loss of height involving the L1 superior endplate from a new minimal co mpression fracture. 2. Although only partially included on this lumbar spine MRI is a fracture wit hin the T10 vertebral body. This fracture was better visualized on a prior CT f rom 06/29/2025. New since 02/04/2025. 3. Multilevel areas of significant central, subarticular recess and foraminal stenosis. Overall disease progression since 2017. 4. L4-5: Severe central, bilateral subarticular recess and moderate foraminal stenosis. 5. L5-S1: Severe central, bilateral subarticular recess and LEFT foraminal kenrick nosis. Moderate RIGHT foraminal stenosis. 6. L3-4: Moderate central, subarticular recess and foraminal stenosis greater on the LEFT. 7. L2-3: Severe LEFT subarticular recess stenosis with moderate to severe cent ral, RIGHT subarticular recess and foraminal stenosis. 8. L1-2: Moderate central, subarticular recess and foraminal stenosis.
== END 2025-07-21 11:31 | disposition home or self-care (01) ==
LOC: RAD 11:31
PROVIDERS: PCP Nurse Practitioner Family; Visit Provider Nurse Practitioner Family
DX: M51.35 Other intervertebral disc degeneration, thoracolumbar region (principal); M48.05 Spinal stenosis, thoracolumbar region; M51.360 Other intervertebral disc degeneration, lumbar region with discogenic back pain only; S22.079D Unspecified fracture of T9-T10 vertebra, subsequent encounter for fracture with routine healing; X58.XXXD Exposure to other specified factors, subsequent encounter; M48.061 Spinal stenosis, lumbar region without neurogenic claudication; M48.07 Spinal stenosis, lumbosacral region; M51.370 Other intervertebral disc degeneration, lumbosacral region with discogenic back pain only; M99.63 Osseous and subluxation stenosis of intervertebral foramina of lumbar region; M51.26 Other intervertebral disc displacement, lumbar region; M89.38 Hypertrophy of bone, other site; M46.96 Unspecified inflammatory spondylopathy, lumbar region
CPT/HCPCS: 72148

== ENCOUNTER 2025-09-25 19:24 | Emergency (ER) | payer MEDICARE, MEDICAID, SELFPAY ==
--- OUTSIDE RECORDS SUMMARY | 2024-09-07 03:00 | XMS_ITS ---
Author Organization [facility] Address [address] [place] [address] Support Name Relationship Address , Malachi Oh Emergency Contact Unknown Unavailable Elena Salinas Guarantor Unknown [phone] Care Team Providers Care Report Programmer Name Role Phone Katherine VARGAS, Lurdes Primary [...] Notes * Elena SALINASDOB:1950 (75 yo F)Acc No.[id number]:09/07/2024 Patient: Elena WITT :1950 A ge:74 Y S ex:Female Address:[address] [place] [address], [address] * Refills Stop oxyCODONE HCl Tablet, 10 MG, Oral, 1 Tablet Every 6 Hours PRN Subjective: * Chief Complaints: * E MR-Justin * * Date:
--- OUTSIDE RECORDS SUMMARY | 2024-09-08 03:00 | XMS_ITS ---
Author Organization [facility] Address [address] [place] [address] Support Name Relationship Address , Malachi Oh Emergency Contact Unknown Unavailable Elena Salinas Guarantor Unknown [phone] Care Team Providers Care Janitor Supervisor Name Role Phone Katherine VARGAS, Lurdes Primary Care Provider Unavailabl e Migration, Provider Unavailable Unavailable REASON FOR VISIT [facility] Social History Social History Additional Details Category [...] Notes * Elena SALINASDOB:1950 (75 yo F)Acc No.[id number]:09/08/2024 Patient: Elena WITT :1950 A ge:74 Y S ex:Female Address:[address] [place] [address], [address] Subjective: * Chief Complaints: * E MR-Justin [...]
[2025-09-25] VITALS (8 sets, daily range): BP systolic 139–173; BP diastolic 74–101; PULSE 60–73; RESP 16–18; TEMP 36.7–37.1; O2SAT 94–97; BMI 40.2
--- OUTSIDE RECORDS SUMMARY | 2025-09-25 13:00 | XMS_ITS | Encounter Summary ---
Author Organization [facility] Address [address] [place] [address] Care Team Providers Care Fixture Maker Name Role Phone Ramona Galarza DO Primary Care Provider [phone] Reason for Visit * Reason Onset Date Comments Yearly Medicare Exam Chronic Conditions Coordination Pt presents today for medicare AWV Annual Wellness Visit (Medicare) 09/25/2025 Encounter Details Date Type Department Care Team (Late st Contact Info) Description 09/25/2025 1:00 PM COATING MACHINE OPERATOR Office Visit [facility] [place] [address] [place] [address] Ramona Galarza, DO [address] [place] [address] Chronic midline low back pain with bilateral sciatica Social History Tobacco Use Types Packs/Day Years [...] on file Legal Sex Female 9:45 PM COATING MACHINE OPERATOR Gender Identity Not on file Sexual Orientation Not on file documented as of this encounter Last Filed Vital Signs Vital Sign Reading Time Taken Comments Blood Pressure 130/70 09/25/2025 1:14 PM COATING MACHINE OPERATOR Pulse 73 09/25/2025 1:14 PM COATING MACHINE OPERATOR Temperature 36.9 C (98.4 F) 09/25/2025 1:14 PM COATING MACHINE OPERATOR Respiratory Rate 16 09/25/2025 1:14 PM COATING MACHINE OPERATOR Oxygen Saturation 93% 09/25/2025 1:14 PM COATING MACHINE OPERATOR Inhaled Oxygen Concentration - - Weight 96.7 kg (213 lb 3.2 oz) 09/25/2025 1:14 P M COATING MACHINE OPERATOR Height 157.5 cm (5' 2 ) 09/25/2025 1:14 PM COATING MACHINE OPERATOR Body Mass Index 38.99 09/25/2025 1:14 PM COATING MACHINE OPERATOR documented in this encounter Miscellaneous Notes * Patient Instructions - Sam Anguiano LPN - 09/25/2025 1:06 PM COATING MACHINE OPERATOR Preventive Care Recommendations for AVERAGE Risk Adult Females > 65yo Measure USPSTF Recommendation Breast cancer screening (mammogram) Every 1 to 2 years for women >40 Osteoporosis Screening (bone density) Women >65 Colon Cancer Screening Colonoscopy every 10 yrs or Fecal Occult Blood testing yearly ages 45-75 Lung Cancer Screening Annual low-dose CT, adults 50 - 80* w/ >20 pack-year smoking hx who currently smoke or have quit w/in 15 yrs (*Medicare will not cover for >77 yo) Lipid Screening Identification of dyslipidemia and calculation of 10-year CVD event risk requires universal lipid screening in adults ages 40 - 75 Pre-diabetes/Diabetes Screening Adults 35-70 who are overweight or obese Hepatitis C Screening Adults 18-79 Immunizations COVID-19 Influenza Pneumococcal RSV Tdap/Td Zoster (Shingles) ING MACHINE OPERATOR documented in this encounter Plan of Treatment Upcoming Encounters Date Type Department Care Team (Late st Contact Info) Description 12/25/2025 1:00 PM COATING MACHINE OPERATOR Office Visit [facility] [address] [place] [phone] Ramona Galarza, DO [address] [place] [phone] 03/25/2026 1:20 PM CDT Office Visit [facility] [address] [place] [phone] Ramona Galarza, DO [address] [place] [phone] documented as of this encounter Visit Diagnoses Diagnosis Chronic midline low back pain with bilateral sciatica documented in this encounter Additional Health Concerns Assessment Noted Time PHQ-9 Depression Total Score: 4 09/25/20 25 1:09 PM COATING MACHINE OPERATOR documented as of this encounter Care Teams Fixture Maker Relationship Specialty Start Date End Date Ramona Galarza DO [address] [place] [address] PCP - General Family Practice 02/12/24 documented as of this encounter
--- NOTE | 2025-09-25 19:27 | W.ED.GENADLT ---
[facility] Adult General: Chief complaint: Overdose Stated complaint: AMS Time Seen by Provider: 09/25/25 19:26 History of Present Illness: Patient is a 75-year-old female with a past medical history of paroxysmal atrial fibrillation, type 2 diabetes, hypertension, hyperlipidemia and a history of vitamin B12 deficiency presents w/cc of decreased sensorium. Per grandson, patient appeared to be falling asleep while at the [facility]. Patient refilled her pain medication today, reports she only took 1 dose however she states she has memory problems and is unsure if she took additional dosing. Per EMS, it sounds like she may have taken additional dose of oxycodone. On my exam, patient is alert and oriented. She denies new vision changes such as double vision or loss of vision. Patient denies difficulty with speech, swallowing, focal numbness, focal weakness, difficulty with coordination. Patient has chronic low back pain and states that over the past several months, she has had progressive difficulty with ambulating and ambulates with a walker. Patient has fallen but not recently, states it has been a while. Patient denies fever, chest pain, shortness of breath, cough, hemoptysis, syncope, abdominal pain, nausea, vomiting, diarrhea or dysuria. Of note, patient has as needed oxygen available at home, is not sure if her concentrator is working. Per record, it sounds like it has been replaced in June. Related Data Home Medications ?Medication ?Instructions ?Recorded ?Confirmed levalbuterol tartrate 45 2 puff inhalation Q6H PRN 07/01/22 07/03/25 mcg/actuation aerosol inhaler Shortness Of Breath oxycodone 15 mg tablet 15 mg PO Q4H PRN Pain 07/01/22 07/03/25 ondansetron 8 mg disintegrating 8 mg PO Q6H PRN Nausea And Vomiting 12/27/24 07/03/25 tablet cyanocobalamin (vitamin B-12) 1,000 mcg SUBCUT .Q30D 01/18/25 07/03/25 1,000 mcg/mL injection solution ergocalciferol (vitamin D2) 1,250 50,000 unit PO Q7D 01/18/25 07/03/25 mcg (50,000 unit) capsule simvastatin 40 mg tablet 40 mg PO DAILY 01/18/25 07/03/25 hydralazine 50 mg tablet mg PO 05/08/25 08/21/25 Previous Rx's ?Medication ?Instructions ?Recorded glucometer testing kit #1 ea 09/18/22 glucometer testing kit #1 ea 09/18/22 lisinopril 40 mg tablet 40 mg PO DAILY #30 tabs 02/06/25 insulin degludec 100 unit/mL (3 25 unit (0.25 mL) SUBCUT QAM #15 mL 02/21/25 mL) subcutaneous pen (Tresiba FlexTouch U-100 insulin) gabapentin 800 mg tablet See Rx Instructions .Route 03/31/25 .COMPLEX #270 tabs glipizide 10 mg tablet, extended 10 mg PO DAILY #90 tabs 03/31/25 release 24 hr magnesium oxide 400 mg (241.3 mg 400 mg PO DAILY #90 tabs 03/31/25 magnesium) tablet metformin 1,000 mg tablet 1,000 mg PO BID #180 tabs 03/31/25 metoprolol tartrate 50 mg tablet 50 mg PO BID #180 tabs 03/31/25 rivaroxaban 10 mg tablet (Xarelto) 10 mg PO DAILY #90 tabs 03/31/25 fenofibrate 160 mg tablet See Rx Instructions .Route 05/02/25 .COMPLEX #90 tabs hydralazine 100 mg tablet See Rx Instructions .Route 05/25/25 .COMPLEX #90 tabs syringe with needle 3 mL 25 gauge #1 ea 05/25/25 x 1 (BD Luer-Beth Syringe) ondansetron 4 mg disintegrating 4 mg PO TID PRN nausea and 06/29/25 tablet vomiting #15 tabs methylprednisolone 4 mg tablets in See Rx Instructions PO .COMPLEX 07/02/25 a dose pack (Medrol (Chris)) #21 ea oxygen 2L via NC #1 ea 07/02/25 amitriptyline 10 mg tablet 10 mg PO DAILY #30 tabs 07/03/25 amlodipine 10 mg tablet See Rx Instructions .Route 08/14/25 .COMPLEX #90 tabs famotidine 20 mg tablet See Rx Instructions .Route 08/25/25 .COMPLEX #180 tabs nitrofurantoin 100 mg PO BID 5 days #10 caps 09/25/25 monohydrate/macrocrystals 100 mg capsule (Macrobid) Allergies Allergy/AdvReac Type Severity Reaction Status Date / Time No Known Allergies Allergy Verified 07/03/25 09:41 [facility] ED [facility]: Medical History (Updated 09/25/25 @ 23:08 by Claudia Jean-Baptiste MD) Obesity Acute hypoxemic respiratory failure COVID-19 NOEMI (acute kidney injury) Type 2 diabetes mellitus B12 deficiency Vitamin D deficiency GERD (gastroesophageal reflux disease) Atrial fibrillation Cholecystitis Abnormal transaminases Cholelithiasis Acute encephalopathy Acute cystitis Wound of right foot Type 2 diabetes mellitus without complications Obesity, unspecified Chronic osteoarthritis Bunion of right foot Encounter for counseling for care management of patient with chronic conditions and complex health needs using nurse-based model Seasonal allergies Gastro-esophageal reflux disease without esophagitis Neuropathy Dyslipidemia Chronic back pain Essential (primary) hypertension Surgical History Hx of knee surgery (~10/2000) left Family History Mother Cancer colon Father Cancer pancreatic Family/Other CAD (coronary artery disease) Social History Smoking and tobacco/nicotine status: never used tobacco/nicotine Second hand smoke exposure: No Alcohol intake: never Substance/Drug Use: never Lives independently: Yes Household members: significant other Marital status: Life Partner Current occupational status: retired Current gender identity: Female Physical Exam Narrative: EXAM NARRATIVE: Vital signs were reviewed. Patient is alert and oriented. Patient is breathing comfortably, no increased WOB or accessory muscle use. SpO2 is above 90% on RA. Patient has clear lungs b/l, no rhonchi, wheezing or crackles. No hypotension or tachycardia. Abdomen is soft, nondistended and nontender. Patient is moving all extremities, no deformity or gross injury. No lower extremity edema or asymmetry. Neuro: Awake, alert, strength equal bilaterally. No sensory deficit. Able to perform FNF. CRANIAL NERVES: II: Pupils equal and reactive, III, IV, : EOM intact, no gaze preference or deviation, no nystagmus. V: normal sensation in V1, V2, and V3 segments bilaterally VII: no asymmetry, no nasolabial fold flattening VIII: normal hearing to speech IX, X: normal palatal elevation, no uvular deviation XI: 5/5 head turn and 5/5 shoulder shrug bilaterally XII: midline tongue protrusion Course Vital Signs: Vital signs: Vital Signs Temperature 98.1 F 09/25/25 19:37 Pulse Rate 62 09/25/25 22:49 Respiratory Rate 16 09/25/25 22:49 Blood Pressure 150/83 09/25/25 22:49 Pulse Oximetry 97 09/25/25 22:49 Oxygen Delivery Me thod Nasal Cannula 09/25/25 22:49 Oxygen Flow Rate 2 09/25/25 22:49 [employer] Adult Medical Decision Making 75-year-old female presents with a chief complaint of decreased sensorium and falling asleep while at the [employer] today. This concerned grandson and prompted EMS to bring her to the emergency department for evaluation. Differential diagnosis includes but is not limited to, fatigue, excessive daytime sleepiness, accidental overdose on medication, underlying infection such as a urinary tract infection or pneumonia, presyncope or syncope, electrolyte derangement such as hypoglycemia, ACS, CVA, other. On exam, patient is hemodynamically stable and nontoxic. She has a nonfocal neurologic exam so I did not ambulate her. She does have lower extremity weakness but this is chronic, equal bilaterally. I suspect this may be due to chronic low back pain, deconditioning. Patient was screened with basic lab work including CBC, CMP, TSH, troponin, EKG and CT of her head. Patient has a minimally elevated white blood cell count but this is nonspecific, clinically insignificant. She is not anemic. She has mildly elevated creatinine but this is similar to previous. Potassium is mildly elevated but I suspect that this may be hemolyzed, there are no EKG changes. Troponin is minimally elevated with a delta of 5 but patient has not had chest pain today, denies current chest pain, EKG does not show STEMI and there is no evolution on the second EKG. UA shows positive nitrates, leuk esterase and 4+ bacteria which may be consistent with a urinary tract infection. Will start patient on Macrobid for acute cystitis. CT shows: CT: IMPRESSION: 1. No acute intracranial head CT findings identified. 2. Remote basal ganglia lacunae. 3. Atrophy/involutional changes of aging with components of chronic small-vessel disease. 4. Exophthalmos question history of thyroid ophthalmopathy. Patient does not have any new neurologic symptoms; have low suspicion for acute CV. Additionally, we discussed a sleep study, she may benefit from CPAP, physical therapy. Patient can follow-up with her primary care physician regarding this next apps. At this time, patient is alert, oriented, is feeling well, does not have any concerns and she is stable for discharge. We discussed strict return precautions. Patient was counseled on supportive care at home and discharged in stable condition. Lab Data 09/25/25 19:30 09/25/25 19:[address] 09/25/25 20:19 IMPRESSION: 1. No acute intracranial head CT findings identified. 2. Remote basal ganglia lacunae. 3. Atrophy/involutional changes of aging with components of chronic small-vessel disease. 4. Exophthalmos question history of thyroid ophthalmopathy. Laboratory Results WBC 11.86 10^3/uL (3.29-11.43) H 09/25/25 19: RBC 4.01 10^6/uL (3.85-5.65) 09/25/25 19: Hgb 12.10 g/dL (11.27-16.99) 09/25/25 19: Hct 39.2 % (36-47) 09/25/25 19:30 MCV 97.8 fl (85-98) 09/25/25 19: MCH 30.2 pg (27-33) 09/25/25 19: MCHC 30.9 g/dL (30-55) 09/25/25 19:30 RDW 14.0 % (12.1-15.1) 09/25/25 19: Plt Count 291 10^3/cmm (157-399) 09/25/25 19: MPV 11.2 fL (7.4-10.4) H 09/25/25 19:30 Neut % (Auto) 86.7 % 09/25/25 19: Lymph % (Auto) 9.3 % 09/25/25 19: [place]borne % (Auto) 1.9 % 09/25/25 19:30 Eos % (Auto) 1.0 % 09/25/25 19:30 Baso % (Auto) 0.4 % 09/25/25 19:30 Neut # (Auto) 10.28 10^3/uL (1.8-7.7) H 09/25/25 19:30 Lymph # (Auto) 1.1 10^3/uL (0.8-4.8) 09/25/25 19:30 [place]borne # (Auto) 0.2 10^3/uL (0.2-0.9) 09/25/25 19:30 Eos # (Auto) 0.1 10^3/uL (0.0-0.8) 09/25/25 19:30 Baso # (Auto) 0.1 10^3/uL (0.0-0.1) 09/25/25 19:30 Nucleated RBC % (auto) 0 % 09/25/25 19: Nucleated RBCs # 0.0 /100WBC 09/25/25 19:30 Sodium 138 mmol/L (136-145) 09/25/25 19: Potassium 5.6 mmol/L (3.5-5.1) H 09/25/25 19:30 Chloride 103 mmol/L (98-107) 09/25/25 19: Carbon Dioxide 24 mmol/L (22-29) 09/25/25 19: Anion Gap 16.6 (5-19) 09/25/25 19:30 BUN 33 mg/dL (8-23) H 09/25/25 19:30 Creatinine 1.2 mg/dL (0.5-0.9) H 09/25/25 19:30 GFR Calculation Not Reportable 09/25/25 19: Glucose 177 mg/dL (65-115) H 09/25/25 19:30 Calculated Osmolality 298 mOsm/kg (285-295) H 09/25/25 19: Calcium 9.2 mg/dL (8.5-10.5) 09/25/25 19:30 Total Bilirubin 0.2 mg/dL (0.15-1.2) 09/25/25 19:30 AST 17 U/L (0-32) 09/25/25 19:30 ALT 10 U/L (0-33) 09/25/25 19:30 Alkaline Phosphatase 58 U/L (35-105) 09/25/25 19:30 Troponin T Baseline 24 ng/L (0-10) H 09/25/25 19:30 Troponin T 120 Minute 19.05 ng/L (0-10) H 09/25/25 21:23 Delta Troponin T -4.95 ABS# (0-10) L 09/25/25 21: Total Protein 6.7 g/dL (6.6-8.7) 09/25/25 19: Albumin 4.2 g/dL (3.5-5.2) 09/25/25 19: Globulin 2.5 g/dL (1.3-4.6) 09/25/25 19: TSH 1.14 uIU/mL (0.27-4.20) 09/25/25 19: Urine Color Yellow (Yellow) 09/25/25 21: Urine Appearance Clear (CLEAR) 09/25/25 21: Urine pH 6.0 (5-7) 09/25/25: Ur Specific [place] 1.022 (1.005-1.030) 09/25/25: Urine Protein Negative (Negative) 09/25/25: Urine Glucose (UA) Negative (Normal) 09/25/25 21: Urine Ketones Negative (Negative) 09/25/25: Urine Blood Negative (Negative) 09/25/25: Urine Nitrate Positive (Negative) A 09/25/25: Urine Bilirubin Negative (Negative) 09/25/25: Urine Urobilinogen 0.2 mg/dL (Negative) 09/25/25: Ur Leukocyte Esterase Trace (Negative) A 09/25/25 21: Urine RBC 0-2 /hpf (0-2) 09/25/25 21: Urine WBC 0-5 /hpf (0-5) 09/25/25: Ur Squamous Epith Cells 0-5 /hpf (0-5) 09/25/25 21: Amorphous Sediment Not Reportable 09/25/25: Urine Bacteria 4+ /hpf (NONE) H 09/25/25 21: Hyaline Casts 1.21 /lpf 09/25/25 21: All radiology interpretation(s) finalized by discharge EKG Data EKG 1: Interpretation: Normal sinus rhythm with a heart rate of 62, left axis deviation, normal intervals, no STEMI. No ischemic change or suspicious T wave inversion. Computer generated interpretation: Head CT 09/25/25 20:19 IMPRESSION: 1. No acute intracranial head CT findings identified. 2. Remote basal ganglia lacunae. 3. Atrophy/involutional changes of aging with components of chronic small-vessel disease. 4. Exophthalmos question history of thyroid ophthalmopathy. EKG 2: Interpretation: Normal sinus rhythm with a heart rate of 63, left axis deviation, normal intervals, no STEMI. No evolution or significant change. Computer generated interpretation: Head CT 09/25/25 20:19 IMPRESSION: 1. No acute intracranial head CT findings identified. 2. Remote basal ganglia lacunae. 3. Atrophy/involutional changes of aging with components of chronic small-vessel disease. 4. Exophthalmos question history of thyroid ophthalmopathy. Discharge Plan Discharge Patient Disposition: Home Clinical Impression: Excessive daytime sleepiness, Chronic, continuous use of opioids, Physical deconditioning Acute cystitis Qualifiers: Hematuria presence: without hematuria Qualified Code(s): N30.00 - Acute cystitis without hematuria Chronic back pain Qualifiers: Back pain location: low back pain Back pain laterality: unspecified Sciatica presence: unspecified whether sciatica present Qualified Code(s): M54.50 - Low back pain, unspecified Condition: Stable Prescriptions: New nitrofurantoin monohyd/m-cryst [Macrobid] 100 mg capsule 100 mg PO BID 5 Days Qty: 10 0RF Rx Instructions: must administer with a meal/food No Action hydralazine 50 mg tablet PO (DME) oxygen 2L via NC See Rx Instructions .Route .MEDSUPPLY Qty: 1 0RF Rx Instructions: As directed amitriptyline 10 mg tablet 10 mg PO DAILY Qty: 30 0RF insulin degludec [Tresiba FlexTouch U-100] 100 unit/mL (3 mL) insulin pen 25 unit SUBCUT QAM Qty: 15 5RF magnesium oxide 400 mg (241.3 mg magnesium) tablet 400 mg PO DAILY Qty: 90 0RF metformin 1,000 mg tablet 1,000 mg PO BID Qty: 180 0RF glipizide 10 mg tablet extended release 24hr 10 mg PO DAILY Qty: 90 0RF Xarelto 10 mg tablet 10 mg PO DAILY Qty: 90 0RF metoprolol tartrate 50 mg tablet 50 mg PO BID Qty: 180 0RF gabapentin 800 mg tablet See Rx Instructions .ROUTE .COMPLEX Qty: 270 1RF Dose Instruction: TAKE ONE TABLET BY MOUTH THREE TIMES DAILY Rx Instructions: TAKE ONE TABLET BY MOUTH THREE TIMES DAILY fenofibrate 160 mg tablet See Rx Instructions .ROUTE .COMPLEX Qty: 90 1RF Dose Instruction: TAKE ONE TABLET BY MOUTH DAILY Rx Instructions: TAKE ONE TABLET BY MOUTH DAILY hydralazine 100 mg tablet See Rx Instructions .ROUTE .COMPLEX Qty: 90 2RF Dose Instruction: TAKE ONE TABLET BY MOUTH THREE TIMES DAILY Rx Instructions: TAKE ONE TABLET BY MOUTH THREE TIMES DAILY (DME) BD Luer-Beth Syringe 3 mL 25 gauge x 1 syringe See Rx Instructions .ROUTE .COMPLEX Qty: 1 5RF Dose Instruction: USE ONE SYRINGE MONTHLY TO INJECT B12 Rx Instructions: USE ONE SYRINGE MONTHLY TO INJECT B12 amlodipine 10 mg tablet See Rx Instructions .ROUTE .COMPLEX Qty: 90 1RF Dose Instruction: TAKE ONE TABLET BY MOUTH DAILY Rx Instructions: TAKE ONE TABLET BY MOUTH DAILY famotidine 20 mg tablet See Rx Instructions .ROUTE .COMPLEX Qty: 180 0RF Dose Instruction: TAKE ONE TABLET BY MOUTH TWICE DAILY Rx Instructions: TAKE ONE TABLET BY MOUTH TWICE DAILY (DME) glucometer testing kit See Rx Instructions .Route .MEDSUPPLY Qty: 1 0RF Rx Instructions: Glucometer testing kit, check blood sugars 3 times daily -Lancets #100, strips #100 (DME) glucometer testing kit See Rx Instructions .Route .MEDSUPPLY Qty: 1 0RF Rx Instructions: Glucometer testing kit, check blood sugars 3 times daily, after meals based on sliding scale provided Lancets #100 Strips #100 ondansetron 4 mg tablet,disintegrating 4 mg PO TID PRN (Reason: nausea and vomiting) Qty: 15 0RF oxycodone 15 mg tablet 15 mg PO Q4H PRN (Reason: Pain) levalbuterol tartrate 45 mcg/actuation HFA aerosol inhaler 2 puff INHALATION Q6H PRN (Reason: Shortness Of Breath) ondansetron 8 mg tablet,disintegrating 8 mg PO Q6H PRN (Reason: Nausea And Vomiting) simvastatin 40 mg tablet 40 mg PO DAILY cyanocobalamin (vitamin B-12) 1,000 mcg/mL solution 1,000 mcg SUBCUT .Q30D ergocalciferol (vitamin D2) 1,250 mcg (50,000 unit) capsule 50,000 unit PO Q7D Rx Instructions: Monday lisinopril 40 mg tablet 40 mg PO DAILY Qty: 30 0RF methylprednisolone [Medrol (Chris)] 4 mg tablets,dose pack See Rx Instructions .ROUTE .COMPLEX Qty: 21 0RF Rx Instructions: orally per package directions Discharge Orders: Discharge ED (Routine); Ordered 09/25/25 Ordered By: Claudia Jean-Baptiste Referrals: Sheri Black FNP [Primary Care Provider, Family Practice] Patient Instructions: Opioid Safety, Pain Management, Patient Portal & Martin Instructions, Urinary Tract Infection - Women Activity Restrictions/Additional Instructions: Please start taking your antibiotics for bladder infection as prescribed. Please continue to monitor your condition closely. If your condition worsens or additional concerns arise, please return immediately to the emergency department. Please note that you may benefit from a sleep study and BiPAP/CPAP while he is sleep. I suspect he may have obstructive sleep apnea. Additionally, please have your oxygen concentrator checked to ensure it is functioning properly. Your CT scan showed a tiny old infarct; talk to your regular doctor about referral to neurology and an outpatient MRI of your brain. Here are the results of your head CT scan to show to your doctor: IMPRESSION: 1. No acute intracranial head CT findings identified. 2. Remote basal ganglia lacunae. 3. Atrophy/involutional changes of aging with components of chronic small-vessel disease. 4. Exophthalmos question history of thyroid ophthalmopathy. Your doctor may also consider checking your thyroid hormone. Also talk to your doctor about physical therapy referral; I believe this would greatly improve your mobility. Print Language: Portuguese Coding Level of Care Code ED [place] Measurer for Jorje Blackmon
--- OUTSIDE RECORDS SUMMARY | 2025-09-25 19:32 | XMS_ITS | Clinical Summary ---
Author Organization [facility] Address [address] [place] [address] Care Team Providers Care Classics Professor Name Role Phone Unavailable Primary Care Provider [...] mouth daily. Active mometasone (NASONEX) 50 mcg/actuation [place], Non-Aerosol daily. 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
--- OUTSIDE RECORDS SUMMARY | 2025-09-25 19:32 | XMS_ITS | Encounter Summary ---
Author Organization [facility] Address 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 Topic: [id number] Call >> Jun 10, 2025 3:54 PM Mike Hermosillo wrote: Caller is requesting to speak with Clinical Care Team. Caller Name: [facility] Callback Number: [phone] Is the caller a Physician, Nurse Practitioner or Physician Water Resource Engineering Specialist? No Call Notes: sent over a clinical recommendation on 05/02 and they have since resent it. Calling to get an update on this? Is this addressing an immediate patient care need? No documented in this encounter Plan of Treatment Upcoming Encounters Date Type Department Care Team (Late st Contact Info) Description 12/25/2025 1:00 PM DIGITAL CARTOGRAPHER Office Visit [facility] [address] [place] [id number] Ramona Galarza, DO [address] [facility] [place] [phone] 03/25/2026 1:20 PM CDT Office Visit [facility] [address] [facility] [place] [phone] Ramona Galarza, DO [address] [place] [address] documented as of this encounter Visit Diagnoses Not on filedocumented in this encounter Care Teams Cognos Report Developer Relationship Specialty Start Date End Date Ramona Galarza DO [address] [place] [address] PCP - General Family Practice 02/12/24 documented as of this encounter
--- OUTSIDE RECORDS SUMMARY | 2025-09-25 19:32 | XMS_ITS | Clinical Summary ---
Author Organization [facility] Address [address] [place] [address] Care Team Providers Care Health Sanitarian Name Role Phone Edna Galarzaoragrant Vidal DO Primary Care Provider Allergies No known active allergies Medications loratadine/pseud oephedrine (CLARITIN-D 12 HOUR ORAL) Take 10 mg [...] Take 160 mg by mouth daily. 01/22/20 22 Active ergocalciferol (VITAMIN D2) 50,000 unit capsule Take 50,000 Units by mouth every 7 days. 04/25/20 Active gabapentin (NEURONTIN) 800 mg tabletIndication s:Chronic midline low back pain with bilateral sciatica [...] 02/09/20 24 Active naloxone (NARCAN) 4 mg/spray [place], Non-Aerosol EMERGENCY USE ONLY: Administer 1 spray [...] mouth daily with supper. 03/20/20 24 Active amLODIPine (NORVASC) 5 mg tablet Take 10 mg by mouth daily. 09/14/20 24 Active ondansetron (ZOFRAN ODT) 8 mg Tablet, Rapid Dissolve DISSOLVE ONE TABLET ON TOP OF TONGUE THEN SWALLOW WITH SALIVA EVERY 6 HOURS NEEDED 60 Tablet 6 01/18/20 25 Active hydrALAZINE (APRESOLINE) 50 mg tabletIndication s:Essential hypertension Take 1 Tablet (50 mg) by mouth 3 times daily. 90 Tablet 03/18/20 25 Active Additional Information Patient taking differently: 100 mgOral THREE TIMES DAILY, Reported on 09/25/2025 levalbuterol HFA (XOPENEX HFA) 45 mcg/Actuation HFA Aerosol Inhaler INHALE TWO PUFFS INTO LUNGS EVERY 6 HOURS NEEDED FOR SHORTNESS OF BREATH 15 Gram 93 06/09/20 25 Active ketorolac tromethamine (TORADOL) 10 mg tablet Take 1 Tablet (10 mg) by mouth every 6 hours as needed for Pain. Short term only. 20 Tablet 06/23/20 25 Active oxyCODONE-acetam inophen (PERCOCET) 7.5-325 mg TabletIndication s:Chronic midline low back pain with bilateral sciatica Take one tablet two times daily prn pain 60 Tablet 09/25/20 25 Active oxyCODONE-acetam inophen (PERCOCET) 7.5-325 mg TabletIndication s:Chronic midline low back pain with bilateral sciatica Take one tablet two times daily prn pain. Do not fill until 10/25/2025 60 Tablet 09/25/20 25 Active oxyCODONE-acetam inophen (PERCOCET) 7.5-325 mg TabletIndication s:Chronic midline low back pain with bilateral sciatica Take one tablet two times daily prn pain. Do not fill until 11/25/2025 60 Tablet 09/25/20 25 Active oxyCODONE (ROXICODONE) 15 mg tabletIndication s:Chronic midline low back pain with bilateral sciatica Take 1 Tablet (15 mg) by mouth every 4 hours as needed for Pain, Moderate. Max Daily Amount: 90 mg 180 Tablet 09/25/20 25 Active oxyCODONE (ROXICODONE) 15 mg tabletIndication s:Chronic midline low back pain with bilateral sciatica Take 1 Tablet (15 mg) by mouth every 4 hours as needed for Pain, Moderate. Do not fill until 10/25/2025 Max Daily Amount: 90 mg 180 Tablet 09/25/20 25 Active oxyCODONE (ROXICODONE) 15 mg tabletIndication s:Chronic midline low back pain with bilateral sciatica Take 1 Tablet (15 mg) by mouth every 4 hours as needed for Pain, Moderate. Do not fill until 11/25/2025 Max Daily Amount: 90 mg 180 Tablet 09/25/20 25 Active promethazine (PHENERGAN) 25 mg tablet Take 1 Tablet (25 mg) by mouth 3 times daily as needed for Nausea/Emesis. 30 Tablet 1 09/25/20 25 Active predniSONE (DELTASONE) 10 mg tablet Take 1 Tablet (10 mg) by mouth daily. Take 3 tabs daily for 3 days then 2 tabs daily for 3 days then 1 tab daily for 3 days then DC 18 Tablet 09/25/20 25 Active oxyCODONE-acetam inophen (PERCOCET) 7.5-325 mg TabletIndication s:Chronic midline low back pain with bilateral sciatica Take 0,5 tablets every am and 1 tablet at bedtime. Do not fill until 08/23/25 45 Tablet 08/21/20 025 Discontin ued(Reord er) oxyCODONE (ROXICODONE) 15 mg tabletIndication s:Chronic midline low back pain with bilateral sciatica Take 1 Tablet (15 mg) by mouth every 4 hours as needed for Pain, Moderate. Do not fill until 08/23/25 Max Daily Amount: 90 mg 180 Tablet 08/21/20 025 Discontin ued(Reord er) Active Problems Problem Noted Date Diagnosed Date [...] Encounters Date Type Department Care Team Description 09/25/2025 1:00 PM CHEMICAL PROCESSING LABORER Office Visit [facility] [address] [place] [phone] Ramona Galarza, DO Chronic midline low back pain with bilateral sciatica 08/21/2025 Refill [facility] [address] [place] [address] Ramona Gaalrza, DO Chronic midline low back pain with bilateral sciatica 07/23/2025 Refill [facility] [address] [place] [address] Ramona Galarza, DO Chronic midline low back pain with bilateral sciatica 07/06/2025 Results Follow-Up [facility] [address] [place] [address] Ramona Galarza, DO XR LUMBAR SPINE 2 OR 3 VW 07/02/[address] [facility] Health Information Management [place] [address] [place] [address] Provider, Abstract 07/02/2025 External Device Data ST[place] ABSTRACTION Provider, Abstract 07/01/2025 External Device Data [place] ABSTRACTION Provider, Abstract 07/01/2025 External Device Data [place] ABSTRACTION Provider, Abstract 06/30/2025 Telephone [facility] [address] [place] [address] Ramona Galarza, DO Results from Last 3 Months Immunizations Immunization Administration Dates Next Due INFLUENZA VACCINE HIGH DOSE QUADRIVALENT 65 YR UP PF IM 08/21/2023,08/19/2022 INFLUENZA VACCINE HIGH DOSE TRIVALENT SPLIT VIRUS, (65 YR UP), 0.5ML (PF), IM 09/25/2025,09/19/2024 Social History Tobacco Use Types Packs/Day Years [...] on file Legal Sex Female 9:45 PM CHEMICAL PROCESSING LABORER Gender Identity Not on file Sexual Orientation Not on file Last Filed Vital Signs Vital Sign Reading Time Taken Comments Blood Pressure 130/70 09/25/2025 1:14 PM CHEMICAL PROCESSING LABORER Pulse 73 09/25/2025 1:14 PM CHEMICAL PROCESSING LABORER Temperature 36.9 C (98.4 F) 09/25/2025 1:14 PM CHEMICAL PROCESSING LABORER Respiratory Rate 16 09/25/2025 1:14 PM CHEMICAL PROCESSING LABORER Oxygen Saturation 93% 09/25/2025 1:14 PM CHEMICAL PROCESSING LABORER Inhaled Oxygen Concentration - - Weight 96.7 kg (213 lb 3.2 oz) 09/25/2025 1:14 P M CHEMICAL PROCESSING LABORER Height 157.5 cm (5' 2 ) 09/25/2025 1:14 PM CHEMICAL PROCESSING LABORER Body Mass Index 38.99 09/25/2025 1:14 PM CHEMICAL PROCESSING LABORER Plan of Treatment Upcoming Encounters Date Type Department Care Team (Late st Contact Info) Description 12/25/2025 1:00 PM CHEMICAL PROCESSING LABORER Office Visit [facility] [address] [place] [facility] [place] [phone] Ramona [facility]arza, DO [address] [facility] [phone] 03/25/2026 1:20 PM CDT Office Visit [facility] [address] [place] [facility] [place] [phone] Ramona Galarza, DO [address] [place] [phone] Health Maintenance Due Date Last Done Comments [...] 2001 ZOSTER VACCINE (1 of 2) 2001 BREAST CANCER SCREENING 02/20/2018 02/20/2017 OSTEOPOROSIS SCREENING 02/20/2022 02/20/2017 DIABETES ANNUAL RETINAL EXAM 12/17/202202/2022, 12/14/2020, 12/14/2020, Additional history exists Medicare Advantage ([place]) Preventative Visit/Annual Wellness Visit 11/13/2024 09/19/2024, 08/21/2023, 02/17/2022 COVID-19 Vaccine (3 - 2024-2 6 season) 2025 07/15/2021, 06/17/2021 Traditional Medicare (ACO) A nnual Wellness Visit 09/20/2025 09/19/2024, 08/21/2023, 02/17/2022 DIABETES HBA1C Q 6 MONTHS 12/19/20252024, 02/06/2024, 10/17/2023, Additional history exists DIABETES ANNUAL FOOT EXAM 01/16/20262024, 09/19/2024, 05/22/2024, Additional history exists DIABETES MICROALBUMIN ANNUAL SCREEN 06/18/2026 06/18/2025, 09/19/2024, 01/27/2021 LDL CHOLESTEROL ANNUAL 06/18/2026 , 08/24/2021, 01/27/2021, Additional history exists INFLUENZA VACCINE Completed 09/25/2025, , 08/21/2023, Additional history exists Procedures Procedure Name Priority Date/Time Associated Diagnosis Comments MICROALBUMIN/CREATIN INE RATIO, RANDOM UR Routine 06/18/2025 3:36 PM CDT Type 2 diabetes mellitus without complication, without long-term current use of insulin ([facility]) LIPID PANEL Routine 06/18/2025 2:49 PM CDT Type 2 diabetes mellitus without complication, without long-term current use of insulin ([facility]) HEMOGLOBIN A1C Routine 06/18/2025 2:49 PM CDT Type 2 diabetes mellitus without complication, without long-term current use of insulin ([facility]) DIABETES EYE EXAM Routine 12/14/2020 from Last 3 Months or Most Recently Relevant to Health Maintenance Results * (ABNORMAL) MICROALBUMIN/CREATININE RATIO, RANDOM UR (06/18/2025 3:36 PM CDT) CREATININE, URINE 89 20 - 275 mg/dL [facility] ALBUMIN, URINE 9.9 See Note: mg/dL [facility] Comment: Reference Range: Reference Range Not established ALB/CREAT RATIO, URINE 111(H) <30 mg/g creat [facility] Comment: [...] category. FASTING:UNKNOWN FASTING: UNKNOWN Test Performed at: [facility] [address] [address] [address] Cody Faith MD Urine URINE SPECIMEN OBTAINED BY CLEAN CATCH PROCEDURE / Unknown 06/18/2025 3:36 PM CDT 06/19/2025 3:15 AM CDT Ramonameryl Galarza DO URINE ORDERABLES Final Resu lt Performing Organization Address [facility] Co de Phone Number [facility] [phone] [facility] [address] [place] [address] [place] [address] * (ABNORMAL) HEMOGLOBIN A1C (06/18/2025 2:49 PM CDT) HEMOGLOBIN A1C 6.3(H) <5.7 % [facility] Comment: For someone without known diabetes, [...] children. ESTIMATED AVERAGE GLUCOSE (MG/DL) 134 mg/dL [facility] ESTIMATED AVERAGE GLUCOSE (MMOL/L) 7.4 mmol/L [facility] Comment: FASTING:UNKNOWN FASTING: UNKNOWN Test Performed at: [facility] [address] Cody Faith MD Blood 06/18/2025 2:49 PM CDT 06/18/2025 2:49 PM CDT us Ramona Galarza DO CHEMISTRY ORDERABLES Final Result Performing Organization Address [facility]/ZIP Co de Phone Number [facility] [phone] [facility] [address] [place] [phone] * (ABNORMAL) LIPID PANEL (06/18/2025 2:49 PM CDT) CHOLESTEROL 172 <200 mg/dL [facility] HDL 51 > OR = 50 mg/dL [facility] TRIGLYCERIDE 184(H) <150 mg/dL [facility] LDL CALCULATED 93 mg/dL (calc) [facility] Comment: Reference range: <100 Desirable range <100 mg/dL for primary prevention; <70 mg/dL for patients with CHD or diabetic patients with > or = 2 CHD risk factors. LDL-C is now calculated using the Stewart calculation, which is a validated novel method providing better accuracy than the Friedewald equation in the estimation of LDL-C. Da SS et al. AMY. 2013;310(19): 9740-5133 (http://education.[employer]/faq/TOB081) CHOL/HDL RATIO 3.4 <5.0 (calc) [facility] NON-HDL CHOLESTEROL 121 <130 mg/dL (calc) [facility] Comment: For patients with diabetes plus 1 major ASCVD risk factor, treating to a non-HDL-C goal of <100 mg/dL (LDL-C of <70 mg/dL) is considered a therapeutic option. Test Performed at: [facility] [address] [place] [address] Cody Faith MD Blood 06/18/2025 2:49 PM CDT 06/18/2025 2:49 PM CDT us Ramona Galarza DO CHEMISTRY ORDERABLES Final Result [facility] [phone] [facility] [address] [place] [address] * DIABETES EYE EXAM (12/14/2020) us Abstract Provider HEALTH MAINTENANCE Final Resul t from Last 3 Months or Most Recently Relevant to Health Maintenance Insurance MEDICAID [facility] DUAL COMPLETE PPO DSNP [facility] [id number] Advance Directives For more information, please contact: [phone] * Full Code (Latest Code Status on File) Date Activated Date Inactivated Comments 02/07/2024 11:36 PM 02/10/2024 1:11 PM Care Teams Health Sanitarian Relationship Specialty Start Date End Date Ramona Galarza DO [address] [place] [phone] PCP - General Family Practice 02/12/24
--- OUTSIDE RECORDS SUMMARY | 2025-09-25 19:32 | XMS_ITS | Patient Health Record ---
Author Organization [facility] Address [address] [place] [address] Support Name Relationship Address , Malachi Calvilloton Emergency Contact Unknown Unavailable Elena Salinas Guarantor Unknown [phone] Care Team Providers Care Supervisor Commissary Production Name Role Phone Katherine VARGAS, Lurdes Primary Care Provider Unavailabl e Reason For Referral No Information Social History Social History Additional Details Category [...] - Never smoker, Working currently? - No Plan Of Treatment No Information Medical (General) History Surgical History Surgery Date(Month/Year) left knee surgery Since 09/2020
--- NOTE | 2025-09-25 20:19 | CTR_ITS ---
PROCEDURE INFORMATION: Exam: CT Head Without Contrast Exam date and time: 09/25/2025 8:49 PM Age: 75 years old Clinical indication: Altered mental status/memory loss; Additional info: Decreased sensorium TECHNIQUE: Imaging protocol: Computed tomography of the head without contrast. Radiation optimization: All CT scans at this facility use at least one of these dose optimization techniques: automated exposure control; mA and/or kV adjustment per patient size (includes targeted exams where dose is matched to clinical indication); or iterative reconstruction. COMPARISON: CT head wo con* [id number] 11/06/2025 05:44 RADIATION DOSE METRICS: Total DLP (mGy-cm): 1042.64 FINDINGS: Brain: Mild patchy periventricular and deep white matter decreased density seen in both cerebral hemispheres. Remote lacunar changes are suspected in the right basal ganglia.Beam hardening artifact obscures resolution through the posterior fossa structures. No hemorrhage. Mild atherosclerotic calcifications are seen in the right supraclinoid ICA. No mass effect. Cerebral ventricles: Ventricles demonstrate normal size shape and configuration and are felt to be in proportion to the degree of widening of the sulci, sylvian fissures and basilar cisterns. Paranasal sinuses: Visualized sinuses are unremarkable. No fluid levels. Mastoid air cells: Visualized mastoid air cells are well aerated. Orbital cavities: Bilateral cataract surgery. Mild bilateral exophthalmos. Bones: Unremarkable. No acute fracture. Soft tissues: Unremarkable. CT/CT head wo con* [id number] IMPRESSION: 1. No acute intracranial head CT findings identified. 2. Remote basal ganglia lacunae. 3. Atrophy/involutional changes of aging with components of chronic small-vessel disease. 4. Exophthalmos question history of thyroid ophthalmopathy.
[2025-09-25 20:26] LABS: Hematocrit 39.2 % (36-47); Hemoglobin 12.10 g/dL (11.27-16.99); Mean Corpuscular HGB Conc 30.9 g/dL (30-55); Mean Corpuscular Hemoglobin 30.2 pg (27-33); Mean Corpuscular Volume 97.8 fl (85-98); Nucleated Red Blood Cells % 0 %; Platelet Count 291 10^3/cmm (157-399); Red Blood Count 4.01 10^6/uL (3.85-5.65); White Blood Count 11.86 10^3/uL (3.29-11.43)
--- NOTE | 2025-09-25 20:37 | ECG_ITS ---
[facility] Test Date: 2025-09-25 Pat Name: Elena Salinas Department: Room: Gender: Female Arboriculturist: : 1950 Requested By: Claudia Jean-Baptiste Order Number: [id number] Sendy MD: Samir Hendrickson M.D. Measurements Intervals [place] Rate: 62 P: 33 AL: 200 QRS: -21 QRSD: 93 T: 18 QT: 379 QTc: 385 Interpretive Statements SINUS RHYTHM BORDERLINE LEFT AXIS DEVIATION [QRS AXIS < -20] MODERATE VOLTAGE CRITERIA FOR LVH, CONSIDER NORMAL VARIANT [MEETS CRITERIA IN ONE OF: R(aVL), S(V1), R(V5), R(V5/V6)+S(V1)] Compared to ECG 07/02/2025 09:57:31 Sinus bradycardia no longer present First degree AV block no longer present Electronically Signed On 09-26-2025 13:06:08 HEAD BOOKKEEPER by Samir Hendrickson M.D. [email or web address]
[2025-09-25 20:48] LABS: Troponin(5th) Baseline 24 ng/L (0-10)
[2025-09-25 20:49] LABS: Alanine Aminotransferase 10 U/L (0-33); Albumin Level 4.2 g/dL (3.5-5.2); Alkaline Phosphatase 58 U/L (35-105); Aspartate Amino Transferase 17 U/L (0-32); Blood Urea Nitrogen 33 mg/dL (8-23); Calcium 9.2 mg/dL (8.5-10.5); Carbon Dioxide 24 mmol/L (22-29); Chloride 103 mmol/L (98-107); Globulin 2.5 g/dL (1.3-4.6); Glucose 177 mg/dL (65-115); Osmolality Calculated 298 mOsm/kg (285-295); Sodium 138 mmol/L (136-145); Thyroid Stimulating Hormone 1.14 uIU/mL (0.27-4.20); Total Protein 6.7 g/dL (6.6-8.7)
[2025-09-25 20:52] LABS: Anion Gap 16.6 (5-19); Potassium 5.6 mmol/L (3.5-5.1)
[2025-09-25 21:30] LABS: Glucose Urine UA Negative (Normal); Nitrate Urine Positive (Negative); Specific Gravity, Urine 1.022 (1.005-1.030)
[2025-09-25 21:35] LABS: Add Urine Microscopic? YES
[2025-09-25 21:53] LABS: Troponin 5 2HR 19.05 ng/L (0-10); Troponin 5 2HR Delta -4.95 ABS# (0-10)
--- NOTE | 2025-09-25 22:22 | ECG_ITS ---
[facility] Test Date: 2025-09-25 Pat Name: Elena Salinas Department: Room: Gender: Female Healthcare Consultant: : 1950 Requested By: Claudia Jean-Baptiste Order Number: [id number] Sendy MD: Samir Hendrickson M.D. Measurements Intervals [place] Rate: 63 P: -32 [place]: 169 QRS: -20 QRSD: 88 T: 18 QT: 377 QTc: 386 Interpretive Statements SINUS RHYTHM MODERATE VOLTAGE CRITERIA FOR LVH, CONSIDER NORMAL VARIANT [MEETS CRITERIA IN ONE OF: R(aVL), S(V1), R(V5), R(V5/V6)+S(V1)] Compared to ECG 09/25/2025 20:37:28 No significant changes Electronically Signed On 09-26-2025 13:16:02 WORD PROCESSOR by Samir Hendrickson M.D. [id number]
[2025-09-25] MEDS: nitrofurantoin SR (BID) 100 mg Capsule PO (23:32)
== END 2025-09-25 23:35 | disposition home or self-care (01) ==
PROVIDERS: Emergency Provider Emergency Medicine; PCP Nurse Practitioner Family
DX: R40.0 Somnolence (principal); F11.20 Opioid dependence, uncomplicated; R53.81 Other malaise; N30.00 Acute cystitis without hematuria; M54.50 Low back pain, unspecified; Z79.4 Long term (current) use of insulin; Z79.84 Long term (current) use of oral hypoglycemic drugs; E78.5 Hyperlipidemia, unspecified; I10 Essential (primary) hypertension
CPT/HCPCS: 70450; 80053; 81001; 84443; 84484; 85025; 87077; 87086; 87186; 93005; 99284; J9999

== ENCOUNTER → 2025-10-13 13:15 | Outpatient (BNVA) | payer MEDICARE, MEDICAID, SELFPAY | PROVIDERS: PCP Nurse Practitioner Family; Visit Provider Nurse Practitioner Family | DX: E55.9 Vitamin D deficiency, unspecified (principal); E11.9 Type 2 diabetes mellitus without complications | CPT/HCPCS: 80053; 80061; 82043; 82306; 82607; 83036; 84443; 85025 ==

== ENCOUNTER → 2025-10-21 10:23 | Outpatient (BNVA) | payer MEDICARE, MEDICAID, SELFPAY | PROVIDERS: PCP Nurse Practitioner Family; Referring Provider Nurse Practitioner Family; Visit Provider Nurse Practitioner Family | DX: M48.062 Spinal stenosis, lumbar region with neurogenic claudication (principal); G89.29 Other chronic pain | CPT/HCPCS: 99204; 99214 ==

== ENCOUNTER → 2025-10-29 09:16 | Outpatient (BNVA) | payer MEDICARE, MEDICAID, SELFPAY | PROVIDERS: PCP Nurse Practitioner Family; Visit Provider Nurse Practitioner Family | DX: R50.9 Fever, unspecified (principal) | CPT/HCPCS: 87400; 87426 ==

== ENCOUNTER 2025-11-06 15:14 | Inpatient (IN) | payer MEDICARE, MEDICAID, SELFPAY ==
--- OUTSIDE RECORDS SUMMARY | 2024-09-07 03:00 | XMS_ITS ---
Author Organization [facility] Address [address] [place] [address] Support Name Relationship Address , Malachi Oh Emergency Contact Unknown Unavailable Elena Salinas Guarantor Unknown [phone] Care Team Providers Care End Touching Machine Operator Name Role Phone Katherine VARGAS, Lurdes Primary Care Provider Unavailabl e Migration, Provider Unavailable Unavailable REASON FOR VISIT EMR-[facility] Encounters Encounter Location Date Provider Diagnosis Migrated_Facility 0 0 09/07/2024 Provider Migration Plan Of Treatment Medication Medication Name Sig Start Date Stop Date Notes oxyCODONE HCl 10 MG Tablet 1 Tablet Ever y 6 Hours PRN Oral 08/27/2020 09/10/2020 Progress Notes * Elena SALINASDOB:1950 (75 yo F)Acc No.[id number]:09/07/2024 Patient: Elena WITT :1950 A ge:74 Y S ex:Female Address:[address] [place] [address], [id number] * Refills Stop oxyCODONE HCl Tablet, 10 MG, Oral, 1 Tablet Every 6 Hours PRN Subjective: * Chief Complaints: * E MR-Justin * * Date:
--- OUTSIDE RECORDS SUMMARY | 2024-09-08 03:00 | XMS_ITS ---
Author Organization [facility] Address [address] [place] [address] Support Name Relationship Address , Malachi Oh Emergency Contact Unknown Unavailable Elena Salinas Guarantor Unknown [phone] Care Team Providers Care Associate Product Manager Name Role Phone Katherine VARGAS, Lurdes Primary Care Provider Unavailabl e Migration, Provider Unavailable Unavailable REASON FOR VISIT [facility] [place] Social History Social History Additional Details Category Social Info Options Details Migrated Social History Migrated Social History Alcoholic beverages? - No, Applying for disability? - No, Currently on disability? - No, Drug or substance abuse? - No, exposure to toxins/poisonous substances at work - No, I am interested in quitting. - No, Marital Status - , Nonprescription drug use? - No, Participation in detoxification or rehabilitation - No, Smoked in the past? - No, Smoking - No, Smoking status (MU) - Never smoker, Working currently? - No Encounters Encounter Location Date Provider Diagnosis Migrated_Facility 0 0 09/08/2024 Provider Migration Plan Of Treatment No Information Progress Notes * Elena SALINASDOB:1950 (75 yo F)Acc No.[id number]:09/08/2024 Patient: Elena WITT :1950 A ge:74 Y S ex:Female Address:[address] [place] [address], [id number] Subjective: * Chief Complaints: * E MR-Justin * Medical History: Arthritis, D iabetes, H igh blood pressure, H istory of measles, mumps, or rubella, S welling of joint of multiple sites, * Surgical History: left knee surgery Since 09/2020 * Family History: M igrated Family History: : Cancer, H eart disease. * Social History: M igrated Social History: M igrated Social History: Alcoholic beverages? - No, A pplying for disability? - No, C urrently on disability? - No, D rug or substance abuse? - No, e xposure to toxins/poisonous substances at work - No, I am interested in quitting. - No, M arital Status - , N onprescription drug use? - No, P articipation in detoxification or rehabilitation - No, S moked in the past? - No, S moking - No, S moking status (MU) - Never smoker, W orking currently? - No. * * Date:
[2025-11-06] VITALS (52 sets, daily range): BP systolic 105–172; BP diastolic 56–95; PULSE 44–93; RESP 9–27; TEMP 34.3–36.4; O2SAT 90–97; BMI 38.9; BMI 38.5
--- NOTE | 2025-11-06 15:20 | ECG_ITS ---
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 Chief'S Aide: : 1950 Requested By: Arabella Vidal Order Number: [id number] Sendy MD: MINH POWELL Measurements Intervals [place] Rate: 45 P: 21 [place]: 240 QRS: -24 QRSD: 107 T: -7 QT: 485 QTc: 423 Interpretive Statements SINUS BRADYCARDIA WITH FIRST DEGREE AV BLOCK BORDERLINE LEFT AXIS DEVIATION [QRS AXIS < -20] VOLTAGE CRITERIA FOR LVH [MEETS CRITERIA IN ONE OF: R(aVL), S(V1), R(V5), R(V5/V6)+S(V1)] Compared to ECG 09/25/2025 22:35:59 First degree AV block now present Sinus rhythm no longer present Electronically Signed On 11-09-2025 23:09:39 TRIM DIE MAKER by MINH POWELL [id number]
--- NOTE | 2025-11-06 15:20 | XRR_ITS ---
PROCEDURE INFORMATION: Exam: XR Chest Exam date and time: 11/06/2025 3:34 PM Age: 75 years old Clinical indication: Other: Weakness TECHNIQUE: Imaging protocol: Radiologic exam of the chest. Views: 1 view. COMPARISON: CR XR chest 1V portable [id number] 07/02/2025 10:15 AM FINDINGS: Lungs: No evidence of airspace consolidation. Mild subsegmental atelectasis in the right lung. Pleural spaces: No evidence of pleural effusion. Heart/Mediastinum: Unremarkable. No cardiomegaly. Diaphragm: Elevated right hemidiaphragm. Bones/joints: Unremarkable. XR/XR chest 1V portable [id number] IMPRESSION: No new acute cardiopulmonary abnormality identified.
--- OUTSIDE RECORDS SUMMARY | 2025-11-06 15:21 | XMS_ITS | Encounter Summary ---
Author Organization [facility] Address [address] [place] [address] Care Team Providers Care Early Head Start Teacher Name Role Phone Ramona Galarza DO Primary Care Provider [phone] Reason for Visit * Reason Comments Provider Call Encounter Details Date Type Department Care Team (Late st Contact Info) Description 06/10/[address] 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 Topic: [facility] Call >> Jun 10, 2025 3:54 PM Mike Hermosillo wrote: Caller is requesting to speak with Clinical Care Team. Caller Name: [facility] Callback Number: [phone] Is the caller a Physician, Nurse Practitioner or Physician Electrical Appliance Servicer? No Call Notes: sent over a clinical recommendation on 05/02 and they have since resent it. Calling to get an update on this? Is this addressing an immediate patient care need? No documented in this encounter Plan of Treatment Upcoming Encounters Date Type Department Care Team (Late st Contact Info) Description 12/25/2025 1:00 PM DIAGRAMMER AND SEAMER Office Visit [facility] [address] [place] [phone] Ramona Galarza, DO [address] [place] [facility] [place] [phone] 03/25/2026 1:20 PM CDT Office Visit [facility] [address] [facility] [place] [phone] Ramona Galarza, DO [address] [place] [address] documented as of this encounter Visit Diagnoses Not on filedocumented in this encounter Care Teams Early Head Start Teacher Relationship Specialty Start Date End Date Ramona Galarza DO [address] [place] [address] PCP - General Family Practice 02/12/24 documented as of this encounter
--- OUTSIDE RECORDS SUMMARY | 2025-11-06 15:21 | XMS_ITS | Patient Health Record ---
Author Organization [facility] Address [address] [place] [address] Support Name Relationship Address , Malachi Calvilloton Emergency Contact Unknown Unavailable Elena Salinas Guarantor Unknown [phone] Care Team Providers Care Organ Fixer Name Role Phone Katherine VARGAS, Lurdes Primary Care Provider Unavailabl e Reason For Referral Reason eval and treat Diagnosis 1 Low back pain (M54.5 ) Diagnosis 2 Chronic pain (G89.29 ) Referred Organization [facility] Referred Provider Reinier Leon Referred Address [address],[place],[address], Referred Provider Specialty Pain Medicin e Referral Priority Routine Social History Social History Additional Details Category [...] - Never smoker, Working currently? - No Problems Problem Type SNOMED Code ICD Code Onset Dates Problem Status W/U Status Risk Notes Problem Chronic pain (88523666) Chronic pain (G89.29) Active confirmed Plan Of Treatment No Information Insurance Providers Payer Name Payer Address Payer Phone Subscriber Number Group Number Insured Name Patient Relationship to Insured Coverage Start Date Coverage End Date [facility] Medicare Dual Complete PPO [address] [address] [place] [phone] [id number] Elena Salinas Self - patient is the insured ID Medicare [address] [address] [place] [address] [phone] [id number] Elena Salinas Self - patient is the insured Medical (General) History Surgical History Surgery Date(Month/Year) left knee surgery Since 09/2020
--- OUTSIDE RECORDS SUMMARY | 2025-11-06 15:21 | XMS_ITS | Clinical Summary ---
Author Organization [facility] Address [address] [place] [address] Care Team Providers Care Crisis Counselor Name Role Phone Unavailable Primary Care Provider [...] mouth daily. Active mometasone (NASONEX) 50 mcg/actuation [place], Non-Aerosol daily. A ctive levalbuterol HFA (XOPENEX [...] on file Legal Sex Female 10:27 AM CARPET SEWER Gender Identity Not on file Sexual Orientation [...]
--- OUTSIDE RECORDS SUMMARY | 2025-11-06 15:21 | XMS_ITS | Clinical Summary ---
Author Organization [facility] Address [address] [place] [address] Care Team Providers Care Welcome Wagon Hostess Name Role Phone Ramona Galarza DO Primary Care Provider Allergies No known [...] 02/09/20 24 Active naloxone (NARCAN) 4 mg/spray [place], Non-Aerosol EMERGENCY USE ONLY: Administer 1 spray [...] then DC 18 Tablet 09/25/20 25 Active Active Problems Problem Noted Date Diagnosed Date Vitamin B12 deficiency (non anemic) 06/24/2025 Frail elderly 01/26/2025 Chronic respiratory failure with [...] Severe obesity (BMI 35.0-39.9) with comorbidity 10/06/2020 Resolved Problems Problem Noted Date Diagnosed Date Resolved Date Hypertensive urgency 02/07/2024 025 Periorbital hematoma 02/07/2024 025 Encounters Date Type Department Care Team Description 10/21/2025 External Device Data STL ABSTRACTION Provider, Abstract 09/30/2025 External Device Data STL ABSTRACTION Provider, Abstract 09/25/2025 1:00 PM STATION INSTALLER AND REPAIRER Office Visit [facility] [address] [place] [address] Ramona Galarza DO Medicare annual wellness visit, subsequent (Primary Dx); Chronic midline low back pain with bilateral sciatica; Chronic respiratory failure with hypoxia and hypercapnia (CMS/HCC); Type 2 diabetes mellitus without complication, without long-term current use of insulin (CMS/HCC); Frail elderly; Vitamin B12 deficiency (non anemic); Mixed hyperlipidemia; Bilateral lower extremity edema; Essential hypertension; History of subarachnoid hemorrhage; Severe obesity (BMI 35.0-39.9) with comorbidity (CMS/HCC) 08/21/2025 Refill [facility] [address] [place] [address] Ramona Galarza DO Chronic midline low back pain with [...] on file Legal Sex Female 9:45 PM STATION INSTALLER AND REPAIRER Gender Identity Not on file Sexual Orientation Not on file Last Filed Vital Signs Vital Sign Reading Time Taken Comments Blood Pressure 130/70 09/25/2025 1:14 PM STATION INSTALLER AND REPAIRER Pulse 73 09/25/2025 1:14 PM STATION INSTALLER AND REPAIRER Temperature 36.9 C (98.4 F) 09/25/2025 1:14 PM STATION INSTALLER AND REPAIRER Respiratory Rate 16 09/25/2025 1:14 PM STATION INSTALLER AND REPAIRER Oxygen Saturation 93% 09/25/2025 1:14 PM STATION INSTALLER AND REPAIRER Inhaled Oxygen Concentration - - Weight 96.7 kg (213 lb 3.2 oz) 09/25/2025 1:14 P M STATION INSTALLER AND REPAIRER Height 157.5 cm (5' 2 ) 09/25/2025 1:14 PM STATION INSTALLER AND REPAIRER Body Mass Index 38.99 09/25/2025 1:14 PM STATION INSTALLER AND REPAIRER Plan of Treatment Upcoming Encounters Date Type Department Care Team (Late st Contact Info) Description 12/25/2025 1:00 PM STATION INSTALLER AND REPAIRER Office Visit [facility] [address] [place] [phone] Ramona Galarza, DO [address] [place] [phone] 03/25/2026 1:20 PM CDT Office Visit [facility] [address] [place] [phone] Ramona Galarza, DO [address] [place] [phone] Health Maintenance Due Date Last Done Comments [...] Additional history exists COVID-19 Vaccine ( - 2024-2 6 season) 2025 07/15/2021, 06/17/2021 DIABETES HBA1C Q 6 MONTHS 12/19/20252024, 02/06/2024, [...] KHE uACR (Auto Order) Completed 06/18/2025, 024 INFLUENZA VACCINE Completed 09/25/2025, , 08/21/2023, Additional history exists Medicare Advantage ([place]) Preventative Visit/Annual Wellness Visit Completed 09/25/2025, 09/19/2024, 08/21/2023, Additional history exists Procedures Procedure Name Priority Date/Time Associated Diagnosis Comments MICROALBUMIN/CREATININ E RATIO, RANDOM UR Routine 06/18/2025 3:36 PM CDT Type 2 diabetes mellitus without complication, without long-term current use of insulin ([facility]) COMPREHENSIVE METABOLIC PANEL Routine 06/18/2025 2:49 PM CDT Type 2 diabetes mellitus without complication, without long-term current use of insulin ([facility]) LIPID PANEL Routine 06/18/2025 2:49 PM CDT Type 2 diabetes mellitus without complication, without long-term current use of insulin ([facility]) HEMOGLOBIN A1C Routine 06/18/2025 2:49 PM CDT Type 2 diabetes mellitus without complication, without long-term current use of insulin ([facility]) DIABETES EYE EXAM Routine 12/14/2020 from Last 3 Months or Most Recently Relevant to Health Maintenance Results * (ABNORMAL) MICROALBUMIN/CREATININE RATIO, RANDOM UR (06/18/2025 3:36 PM CDT) CREATININE, URINE 89 20 - 275 mg/dL [facility] ALBUMIN, URINE 9.9 See Note: mg/dL [facility] Comment: Reference Range: Reference Range Not established ALB/CREAT RATIO, URINE 111(H) <30 mg/g creat [facility] Comment: The ADA defines abnormalities in [...] category. FASTING:UNKNOWN FASTING: UNKNOWN Test Performed at: [facility] [address] [facility] [place] [address] Cody Faith MD Urine URINE SPECIMEN OBTAINED BY CLEAN CATCH PROCEDURE / Unknown 06/18/2025 3:36 PM CDT 06/19/2025 3:15 AM CDT Ramona Galarza DO URINE ORDERABLES Final Resu lt [facility] [phone] [facility] [place] [address] [facility] [place] [address] * (ABNORMAL) HEMOGLOBIN A1C (06/18/2025 2:49 PM CDT) Pathologist [facility] HEMOGLOBIN A1C 6.3(H) <5.7 % [facility] Comment: For someone without known diabetes, [...] ESTIMATED AVERAGE GLUCOSE (MG/DL) 134 mg/dL [facility] ESTIMATED AVERAGE GLUCOSE (MMOL/L) 7.4 mmol/L [facility] Comment: FASTING:UNKNOWN FASTING: UNKNOWN Test Performed at: [facility] [place] [address] Cody Faith MD Blood 06/18/2025 2:49 PM CDT 06/18/2025 2:49 PM CDT Ramona Gaalrza DO CHEMISTRY ORDERABLES Final Result [facility] [phone] [facility] [address] * (ABNORMAL) LIPID PANEL (06/18/2025 2:49 PM CDT) CHOLESTEROL 172 <200 mg/dL [facility] HDL 51 > OR = 50 mg/dL [facility] TRIGLYCERIDE 184(H) <150 mg/dL [facility] LDL CALCULATED 93 mg/dL (calc) [facility] Comment: Reference range: <100 Desirable range <100 mg/dL for primary prevention; <70 mg/dL for patients with CHD or diabetic patients with > or = 2 CHD risk factors. LDL-C is now calculated using the Da-Mcmanus calculation, which is a validated novel method providing better accuracy than the Friedewald equation in the estimation of LDL-C. Da ALEJANDRA et al. AMY. 2013;310(19): 6398-5288 (http://education.SyndicateRoom/faq/BUT501) CHOL/HDL RATIO 3.4 <5.0 (calc) [facility] NON-HDL CHOLESTEROL 121 <130 mg/dL (calc) [facility] Comment: For patients with diabetes plus 1 major ASCVD risk factor, treating to a non-HDL-C goal of <100 mg/dL (LDL-C of <70 mg/dL) is considered a therapeutic option. Test Performed at: [facility] [place] [address] Cody Faith MD Blood 06/18/2025 2:49 PM CDT 06/18/2025 2:49 PM CDT us Ramona Galarza DO CHEMISTRY ORDERABLES Final Result [facility] [phone] [facility] [address] [place] [address] * COMPREHENSIVE METABOLIC PANEL (06/18/2025 2:49 PM CDT) GLUCOSE 67 65 - 99 mg/dL [facility] Comment: Fasting reference interval BUN 25 [...] Comment: FASTING:UNKNOWN FASTING: UNKNOWN Test Performed at: [facility] [address] [address] Cody Faith MD Blood 06/18/2025 2:49 PM CDT 06/18/2025 2:49 PM CDT us Ramona Galarza DO CHEMISTRY ORDERABLES Final Result [facility] [phone] [facility] [address] [address] * DIABETES EYE EXAM (12/14/2020) us Abstract Provider HEALTH MAINTENANCE Final Resul t from Last 3 Months or Most Recently Relevant to Health Maintenance Insurance MEDICAID [place] DUAL COMPLETE PPO [facility] [id number] Advance Directives For more information, please contact: [phone] * Full Code (Latest Code Status on File) Date Activated Date Inactivated Comments 02/07/2024 11:36 PM 02/10/2024 1:11 PM Care Teams Welcome Wagon Hostess Relationship Specialty Start Date End Date Ramona Galarza DO [address] [place] [phone] PCP - General Family Practice 02/12/24
[2025-11-06 15:44] LABS: Glucose Urine UA Negative (Normal); Nitrate Urine Negative (Negative); Specific Gravity, Urine 1.023 (1.005-1.030)
[2025-11-06 16:06] LABS: Hematocrit 43.1 % (36-47); Hemoglobin 13.10 g/dL (11.27-16.99); Mean Corpuscular HGB Conc 30.4 g/dL (30-55); Mean Corpuscular Hemoglobin 29.2 pg (27-33); Mean Corpuscular Volume 96.2 fl (85-98); Nucleated Red Blood Cells % 0 %; Platelet Count 279 10^3/cmm (157-399); Red Blood Count 4.48 10^6/uL (3.85-5.65); White Blood Count 12.96 10^3/uL (3.29-11.43)
[2025-11-06 16:19] LABS: Respiratory Syncytial Virus Ce NEGATIVE (Negative); SARS-CoV-2 PCR NEGATIVE (Negative)
[2025-11-06 16:24] LABS: Alanine Aminotransferase 10 U/L (0-33); Albumin Level 4.2 g/dL (3.5-5.2); Alkaline Phosphatase 43 U/L (35-105); Anion Gap 14.0 (5-19); Aspartate Amino Transferase 17 U/L (0-32); Blood Urea Nitrogen 37 mg/dL (8-23); Calcium 9.4 mg/dL (8.5-10.5); Carbon Dioxide 25 mmol/L (22-29); Chloride 100 mmol/L (98-107); Globulin 2.8 g/dL (1.3-4.6); Glucose 64 mg/dL (65-115); Osmolality Calculated 287 mOsm/kg (285-295); Potassium 4.0 mmol/L (3.5-5.1); Sodium 135 mmol/L (136-145); Total Protein 7.0 g/dL (6.6-8.7)
[2025-11-06] MEDS: dextrose 5%-sod chloride 0.9% 1,000 ML 60 ML IV (16:36)
[2025-11-06] MEDS: cefTRIAXone 1,000 mg SDV 1000 MG IVP (16:38)
--- NOTE | 2025-11-06 16:39 | PC.PHAR ---
Pt could not stay awake to verify her home medications. Family pulled it pts' daughter, who helps with pt medications. She was able to verify current medications. Pt has 2 current active orders for c2 pain medications written on the same day.
--- NOTE | 2025-11-06 16:41 | W.ED.GENADLT ---
HPI - General Adult General: Chief complaint: General Medical Stated complaint: Hypoglycemia Time Seen by Provider: 11/06/25 15:16 History of Present Illness: 75-year-old female with a history of diabetes, obesity, GERD, atrial fibrillation, neuropathy, hypertension and hyperlipidemia who presents emergency room after he was found unresponsive and found to be hypoglycemic. On presentation she is much more alert and sugar has improved some. Unclear how long she was down initially. There reports she was diaphoretic and unresponsive but now she is awake. She is hypothermic. No focal motor deficits. She says she was feeling okay recently. No chest pain. No cough. No fevers. No abdominal pain. No dysuria. She does report she has had decreased appetite from the new medications has been taking it and been eating as well. Related Data Home Medications ?Medication ?Instructions ?Recorded ?Confirmed levalbuterol tartrate 45 2 puff inhalation Q6H PRN 07/01/22 11/06/25 mcg/actuation aerosol inhaler Shortness Of Breath oxycodone 15 mg tablet 15 mg PO Q4H PRN Pain 07/01/22 11/06/25 cyanocobalamin (vitamin B-12) 1,000 mcg SUBCUT .Q30D 01/18/25 11/06/25 1,000 mcg/mL injection solution amlodipine 10 mg tablet 10 mg PO DAILY 11/06/25 11/06/25 famotidine 20 mg tablet 20 mg PO BID 11/06/25 11/06/25 fenofibrate 160 mg tablet 160 mg PO DAILY 11/06/25 11/06/25 gabapentin 800 mg tablet 800 mg PO TID 11/06/25 11/06/25 hydralazine 100 mg tablet 100 mg PO TID 11/06/25 11/06/25 magnesium oxide 400 mg (241.3 mg 400 mg PO DAILY 11/06/25 11/06/25 magnesium) tablet oxycodone-acetaminophen 7.5 mg-325 1 tab PO BID PRN Pain 11/06/25 11/06/25 mg tablet Previous Rx's ?Medication ?Instructions ?Recorded glucometer testing kit #1 ea 09/18/22 glucometer testing kit #1 ea 09/18/22 insulin degludec 100 unit/mL (3 25 unit (0.25 mL) SUBCUT QAM #15 mL 02/21/25 mL) subcutaneous pen (Tresiba FlexTouch U-100 insulin) syringe with needle 3 mL 25 gauge #1 ea 05/25/25 x 1 (BD Luer-Beth Syringe) glipizide 10 mg tablet, extended 10 mg PO DAILY #90 tabs 10/13/25 release 24 hr metformin 1,000 mg tablet 1,000 mg PO BID #180 tabs 10/13/25 metoprolol tartrate 50 mg tablet 50 mg PO BID #180 tabs 10/13/25 oxygen 2L via NC #1 ea 10/13/25 rivaroxaban 10 mg tablet (Xarelto) 10 mg PO DAILY #90 tabs 10/13/25 albuterol sulfate 90 mcg/actuation 2 puff inhalation QID PRN 10/29/25 aerosol inhaler (Ventolin HFA) shortness of breath or wheezing #6.7 grams amoxicillin 875 mg-potassium 1 tab PO BID #20 tabs 10/29/25 clavulanate 125 mg tablet Allergies Allergy/AdvReac Type Severity Reaction Status Date / Time No Known Allergies Allergy Verified 10/29/25 09:08 Review of Systems Narrative: Constitutional symptoms: Negative except as documented in HPI. Skin symptoms: Negative except as documented in HPI. Eye symptoms: Negative except as documented in HPI. ENMT symptoms: Negative except as documented in HPI. Respiratory symptoms: Negative except as documented in HPI. Cardiovascular symptoms: Negative except as documented in HPI. Gastrointestinal symptoms: Negative except as documented in HPI. Genitourinary symptoms: Negative except as documented in HPI. Musculoskeletal symptoms: Negative except as documented in HPI. Neurologic symptoms: Negative except as documented in HPI. Psychiatric symptoms: Negative except as documented in HPI. Endocrine symptoms: Negative except as documented in HPI. PFSH ED PFSH: Medical History (Updated 11/06/25 @ 17:07 by Arabella Slade MD) Obesity Acute hypoxemic respiratory failure COVID-19 NOEMI (acute kidney injury) Type 2 diabetes mellitus B12 deficiency Vitamin D deficiency GERD (gastroesophageal reflux disease) Atrial fibrillation Cholecystitis Abnormal transaminases Cholelithiasis Acute encephalopathy Acute cystitis Wound of right foot Type 2 diabetes mellitus without complications Obesity, unspecified Chronic osteoarthritis Bunion of right foot Encounter for counseling for care management of patient with chronic conditions and complex health needs using nurse-based model Seasonal allergies Gastro-esophageal reflux disease without esophagitis Neuropathy Dyslipidemia Chronic back pain Essential (primary) hypertension Surgical History Hx of knee surgery (~10/2000) left Family History Mother Cancer colon Father Cancer pancreatic Family/Other CAD (coronary artery disease) Social History Smoking and tobacco/nicotine status: never used tobacco/nicotine Second hand smoke exposure: No Alcohol intake: never Substance/Drug Use: never Lives independently: Yes Household members: significant other Marital status: Life Partner Current occupational status: retired Current gender identity: Female Physical Exam Narrative: EXAM NARRATIVE: General: Alert, no acute distress. Skin: Warm, dry. Head: Normocephalic, atraumatic. Neck: Supple, trachea midline. Eye: Extraocular movements are intact. Ears, nose, mouth and throat: mucosa moist. Cardiovascular: Regular, bradycardic, normal peripheral perfusion. Respiratory: Lungs are clear to auscultation, respirations are non-labored, breath sounds are equal, Symmetrical chest wall expansion. Gastrointestinal: Soft, Nontender, Non distended Musculoskeletal: Normal ROM, no deformity. Neurological: Alert and oriented, No focal neurological deficit observed. Psychiatric: Cooperative, appropriate mood & affect. Course Vital Signs: Vital signs: Vital Signs Temperature 93.9 F L 11/06/25 17:16 Pulse Rate 57 L 11/06/25 17:16 Respiratory Rate 18 11/06/25 17:08 Blood Pressure 132/73 11/06/25 17:16 Pulse Oximetry 96 11/06/25 17:16 Oxygen Delivery Me thod Nasal Cannula 11/06/25 17:16 Oxygen Flow Rate 2 11/06/25 17:08 MDM - General Adult Medical Decision Making Medical decision making Patient's reason for coming to the emergency room: Decreased responsiveness, hypoglycemia Social determinants: Patient is retired I reviewed the patient's medical record. 75-year-old female with a history of diabetes, obesity, GERD, atrial fibrillation, neuropathy, hypertension and hyperlipidemia I reviewed the patient's current home meds Patient is on insulin and 10 mg of glipizide. Alternate historians: Family arrives later and tells me she was down for even perhaps an hour. They have been an hour or 2 since last time he had seen her and they had not heard from her so they when checked on her and she was unresponsive. Medical decision making: Differential diagnosis including but not limited to and based on the above HPI, review of systems and physical exam: In this patient with hypoglycemia would have concern for infection causing low blood sugars or renal failure which can also result in low blood sugars in a diabetic. Orders placed to evaluate differential diagnosis based on the above differential, HPI and physical exam EKG: Sinus bradycardia, No ST-T changes, no ectopy, first-degree AV block time 1526. Rate 45., This was reviewed and interpreted by myself the ER physician at 1530 Chest x-ray: No acute process. No infiltrate. No pneumothorax. This was reviewed and interpreted by myself the emergency room physician. I also reviewed the radiology report. Lab Review: Laboratory results were reviewed and interpreted by myself the emergency room physician. Mild leukocytosis. Mild renal insufficiency. She has chronic renal insufficiency. Glucose is 64. Will early urinary tract infection Assessment of risk: Level of risk: High risk patient. Multiple comorbidities patient is being admitted to the ICU. Hospitalization considerations: Reexamination: Patient has remained alert but her sugars have continued to drop again despite intervention. She has received multiple doses of D10 bolus and has been started on D5. Assessment and plan: Hypoglycemia Bradycardia Urinary tract infection Hypothermia ?Multiple doses of D10 bolus. D5 started continuous. Octreotide given. ?Kennedy hugger has been placed. ?Likely her hypothermia, leukocytosis, bradycardia etc. are secondary to hypoglycemia and being down for an extended amount of time. However Empiric treatment initially for possible sepsis. - patient received sepsis fluids between D10 boluses, D5 and 1.5 L normal saline.. - Cefepime for urinary tract infection -Sepsis quality measures. -Lactic acid with a reflex was ordered. -Blood cultures were ordered. ?I reevaluated the patient's volume status after sepsis fluids were given. -I discussed the patient with the hospitalist on-call who is admitting the patient. - Discussed findings and plan with patient. Answered any questions. - All laboratory values were reviewed and interpreted personally by myself, the ER physician - All imaging was reviewed and interpreted personally by myself, the ER physician. - Evaluation and treatment of this problem were appropriate in the emergency setting Critical Care: -I spent a total of 66 minutes of critical care time managing the patient, independent of any other practitioner. -The time involved in the performance of separately reportable procedures was not counted towards critical care time. Lab Data 11/06/25 15:50 11/06/25 15:50 Radiology Impressions Chest X-Ray 11/06/25 15:20 IMPRESSION: No new acute cardiopulmonary abnormality identified. Laboratory Results WBC 12.96 10^3/uL (3.29-11.43) H 11/06/25 15:50 RBC 4.48 10^6/uL (3.85-5.65) 11/06/25 15:50 Hgb 13.10 g/dL (11.27-16.99) 11/06/25 15:50 Hct 43.1 % (36-47) 11/06/25 15:50 MCV 96.2 fl (85-98) 11/06/25 15:50 MCH 29.2 pg (27-33) 11/06/25 15:50 MCHC 30.4 g/dL (30-55) 11/06/25 15:50 RDW 12.9 % (12.1-15.1) 11/06/25 15:50 Plt Count 279 10^3/cmm (157-399) 11/06/25 15:50 MPV 10.3 fL (7.4-10.4) 11/06/25 15:50 Neut % (Auto) 83.8 % 11/06/25 15:50 Lymph % (Auto) 9.5 % 11/06/25 15:50 [place] % (Auto) 5.2 % 11/06/25 15:50 Eos % (Auto) 0.6 % 11/06/25 15:50 Baso % (Auto) 0.2 % 11/06/25 15:50 Neut # (Auto) 10.85 10^3/uL (1.8-7.7) H 11/06/25 15:50 Lymph # (Auto) 1.2 10^3/uL (0.8-4.8) 11/06/25 15:50 [place] # (Auto) 0.7 10^3/uL (0.2-0.9) 11/06/25 15:50 Eos # (Auto) 0.1 10^3/uL (0.0-0.8) 11/06/25 15:50 Baso # (Auto) 0.0 10^3/uL (0.0-0.1) 11/06/25 15:50 Nucleated RBC % (auto) 0 % 11/06/25 15:50 Nucleated RBCs # 0.0 /100WBC 11/06/25 15:50 Sodium 135 mmol/L (136-145) L 11/06/25 15:50 Potassium 4.0 mmol/L (3.5-5.1) 11/06/25 15:50 Chloride 100 mmol/L (98-107) 11/06/25 15:50 Carbon Dioxide 25 mmol/L (22-29) 11/06/25 15:50 Anion Gap 14.0 (5-19) 11/06/25 15:50 BUN 37 mg/dL (8-23) H 11/06/25 15:50 Creatinine 1.3 mg/dL (0.5-0.9) H 11/06/25 15:50 GFR Calculation Not Reportable 11/06/25 15:50 Glucose 64 mg/dL (65-115) L 11/06/25 15:50 POC Glucose 46 mg/dL (70-110) L 11/06/25 17:19 Calculated Osmolality 287 mOsm/kg (285-295) 11/06/25 15:50 Lactic Acid 1.4 mmol/L (0.5-2.2) 11/06/25 15:50 Calcium 9.4 mg/dL (8.5-10.5) 11/06/25 15:50 Total Bilirubin 0.2 mg/dL (0.15-1.2) 11/06/25 15:50 AST 17 U/L (0-32) 11/06/25 15:50 ALT 10 U/L (0-33) 11/06/25 15:50 Alkaline Phosphatase 43 U/L (35-105) 11/06/25 15:50 Total Protein 7.0 g/dL (6.6-8.7) 11/06/25 15:50 Albumin 4.2 g/dL (3.5-5.2) 11/06/25 15:50 Globulin 2.8 g/dL (1.3-4.6) 11/06/25 15:50 Urine Color Yellow (Yellow) 11/06/25 15:37 Urine Appearance Clear (CLEAR) 11/06/25 15:37 Urine pH 5.0 (5-7) 11/06/25 15:37 Ur Specific Girard 1.023 (1.005-1.030) 11/06/25 15:37 Urine Protein Negative (Negative) 11/06/25 15:37 Urine Glucose (UA) Negative (Normal) 11/06/25 15:37 Urine Ketones Negative (Negative) 11/06/25 15:37 Urine Blood Negative (Negative) 11/06/25 15:37 Urine Nitrate Negative (Negative) 11/06/25 15:37 Urine Bilirubin Negative (Negative) 11/06/25 15:37 Urine Urobilinogen 0.2 mg/dL (Negative) 11/06/25 15:37 Ur Leukocyte Esterase 1+ (Negative) A 11/06/25 15:37 Urine RBC 0-2 /hpf (0-2) 11/06/25 15:37 Urine WBC 11-20 /hpf (0-5) H 11/06/25 15:37 Ur Squamous Epith Cells 6-10 /hpf (0-5) 11/06/25 15:37 Amorphous Sediment Not Reportable 11/06/25 15:37 Urine Bacteria None seen /hpf (NONE) 11/06/25 15:37 Hyaline Casts 2.46 /lpf 11/06/25 15:37 Influenza A (PCR) Negative (Negative) 11/06/25 15:25 Influenza Type B (PCR) Negative (Negative) 11/06/25 15:25 RSV (PCR) Negative (Negative) 11/06/25 15:25 SARS-CoV-2 (PCR) Negative (Negative) 11/06/25 15:25 All radiology interpretation(s) finalized by discharge Discharge Plan Discharge Patient Disposition: Admitted As Inpatient Clinical Impression: Hypoglycemia, Hypothermia, Bradycardia, Acute UTI Condition: Stable Coding Level of Care Code ED Financial Services Associate for Jorje Blackmon
[2025-11-06 16:47] LABS: Lactic Sepsis W/Reflex 1.4 mmol/L (0.5-2.2)
[2025-11-06] MEDS: atropine 0.1 mg/mL Syr 10 mL 1 MG IVP (17:05)
--- NOTE | 2025-11-06 18:27 | PM.HP ---
Providers/Chief Complaint Admitting Physician: Greg Sanders MD Primary Care Provider: DOMINICK Vizcarra Chief Complaint: Hypoglycemia History of Present Illness Elena Salinas is a 75 year old female with past medical history of obesity, insulin-dependent type 2 diabetes mellitus. At home she takes Tresiba 25 units daily in the morning, and metformin 1000 mg twice daily, glipizide 10 mg extended release p.o. daily. Patient came to the ER brought by her daughter, was discovered by her granddaughter that she was unresponsive after being on the phone with her just an hour per hour. When patient was brought by EMS, she was found to be bradycardic with pulse rate 40-44, hypothermic, unresponsive. When I saw the patient, she was in the ED bed, with Kennedy hugger, appears to be resting comfortably but not able to be aroused. According to history from the patient's granddaughter, she had not eaten anything for the past 2 days because she started taking Augmentin for her acute bronchitis. Patient continued to take her regular diabetic medications.So far patient is received fluid resuscitation with IV dextrose, ceftriaxone, normal saline. Medications/Allergies Home Medications ?Medication ?Instructions ?Recorded ?Confirmed ?Last Taken ?Type levalbuterol tartrate 45 2 puff inhalation Q6H PRN 07/01/22 11/06/25 Unknown History mcg/actuation aerosol inhaler Shortness Of Breath oxycodone 15 mg tablet 15 mg PO Q4H PRN Pain 07/01/22 11/06/25 01/17/25 History glucometer testing kit #1 ea 09/18/22 11/06/25 Unknown Rx glucometer testing kit #1 ea 09/18/22 11/06/25 Unknown Rx cyanocobalamin (vitamin B-12) 1,000 mcg SUBCUT .Q30D 01/18/25 11/06/25 12/30/24 History 1,000 mcg/mL injection solution insulin degludec 100 unit/mL (3 25 unit (0.25 mL) SUBCUT QAM #15 mL 02/21/25 11/06/25 11/06/25 Rx mL) subcutaneous pen (Tresiba FlexTouch U-100 insulin) syringe with needle 3 mL 25 gauge #1 ea 05/25/25 11/06/25 Unknown Rx x 1 (BD Luer-Beth Syringe) glipizide 10 mg tablet, extended 10 mg PO DAILY #90 tabs 10/13/25 11/06/25 11/06/25 Rx release 24 hr metformin 1,000 mg tablet 1,000 mg PO BID #180 tabs 10/13/25 11/06/25 11/06/25 Rx metoprolol tartrate 50 mg tablet 50 mg PO BID #180 tabs 10/13/25 11/06/25 11/06/25 Rx oxygen 2L via NC #1 ea 10/13/25 11/06/25 Unknown Rx rivaroxaban 10 mg tablet (Xarelto) 10 mg PO DAILY #90 tabs 10/13/25 11/06/25 11/06/25 Rx albuterol sulfate 90 mcg/actuation 2 puff inhalation QID PRN 10/29/25 11/06/25 Unknown Rx aerosol inhaler (Ventolin HFA) shortness of breath or wheezing #6.7 grams amoxicillin 875 mg-potassium 1 tab PO BID #20 tabs 10/29/25 11/06/25 11/06/25 Rx clavulanate 125 mg tablet amlodipine 10 mg tablet 10 mg PO DAILY 11/06/25 11/06/25 11/06/25 History famotidine 20 mg tablet 20 mg PO BID 11/06/25 11/06/25 11/06/25 History fenofibrate 160 mg tablet 160 mg PO DAILY 11/06/25 11/06/25 11/06/25 History gabapentin 800 mg tablet 800 mg PO TID 11/06/25 11/06/25 11/06/25 History hydralazine 100 mg tablet 100 mg PO TID 11/06/25 11/06/25 11/06/25 History magnesium oxide 400 mg (241.3 mg 400 mg PO DAILY 11/06/25 11/06/25 11/06/25 History magnesium) tablet oxycodone-acetaminophen 7.5 mg-325 1 tab PO BID PRN Pain 11/06/25 11/06/25 Unknown History mg tablet Allergies Allergy/AdvReac Type Severity Reaction Status Date / Time No Known Allergies Allergy Verified 10/29/25 09:08 PFSH Acute PFSH: Medical History (Updated 11/07/25 @ 07:06 by Greg Sanders MD) Obesity Acute hypoxemic respiratory failure COVID-19 NOEMI (acute kidney injury) Type 2 diabetes mellitus B12 deficiency Vitamin D deficiency GERD (gastroesophageal reflux disease) Atrial fibrillation Cholecystitis Abnormal transaminases Cholelithiasis Acute encephalopathy Acute cystitis Wound of right foot Type 2 diabetes mellitus without complications Obesity, unspecified Chronic osteoarthritis Bunion of right foot Encounter for counseling for care management of patient with chronic conditions and complex health needs using nurse-based model Seasonal allergies Gastro-esophageal reflux disease without esophagitis Neuropathy Dyslipidemia Chronic back pain Essential (primary) hypertension Surgical History Hx of knee surgery (~10/2000) left Family History Mother Cancer colon Father Cancer pancreatic Family/Other CAD (coronary artery disease) Social History Smoking and tobacco/nicotine status: never used tobacco/nicotine Second hand smoke exposure: No Alcohol intake: never Substance/Drug Use: never Lives independently: Yes Household members: significant other Marital status: Life Partner Current occupational status: retired Current gender identity: Female Vitals/I&O/Wt Last Vital Signs Temp 93.9 F L 11/06/25 17:16 Pulse 51 L 11/06/25 17:52 Resp 18 11/06/25 17:08 BP 105/56 11/06/25 17:52 Pulse Ox 95 11/06/25 17:52 O2 Del Method Nasal Cannula 11/06/25 17:52 O2 Flow Rate 2 11/06/25 17:52 11/06/25 11/06/25 11/06/25 06:59 14:59 22:59 Intake Total 250 / 250 Balance 250 / 250 Weight last 48 hrs Weight 96.615 kg Physical Exam Const: OTHER: Patient not alert, does not appear distressed HENMT: COMMON NORMALS: oropharynx normal Neck/C-Spine: COMMON NORMALS: no JVD Resp: COMMON NORMALS: normal respiratory effort and clear to auscultation bilaterally AUSCULTATION: clear to auscultation bilaterally Cardio: COMMON NORMALS: no JVD, regular rhythm, S1 normal heart sound present, S2 normal heart sound present and No murmurs present (Cardio) RHYTHM: regular rhythm HEART SOUNDS: S1 normal heart sound present and S2 normal heart sound present GI: COMMON NORMALS: Normal to inspection, nondistended, normoactive bowel sounds present, Soft to palpation and non-tender PALPATION: Yes Soft to palpation Extremity: COMMON NORMALS: no joint enlargement and no pedal edema Neuro: SENSORIUM/ORIENTATION: Yes obtunded Skin: COMMON NORMALS: no rashes or lesions noted GENERAL SKIN EXAM: no rashes or lesions noted Data 11/07/25 05:15 11/07/25 05:15 Micro: Microbiology 11/06/25 15:50 Blood Culture - Preliminary Blood SPECIMEN COLLECTED 11/06/25 15:50 Blood Culture - Preliminary Blood SPECIMEN COLLECTED A&P Assessment and plan 1. Hypoglycemia secondary to sulfonylurea, accidental or unintentional, initial encounter: Plan: Type 2 diabetes mellitus Acute URI, on p.o. antibiotics Anorexia, nausea/vomiting Acute hypoglycemia with loss of consciousness, bradycardia, hypothermia ? Appears to be syndrome of drug side effect of diabetic medications, namely Tresiba which she took this morning and glipizide without eating. Morbid obesity Glipizide induced hypoglycemic episode Plan: Discussed with the ED doc. Will initiate octreotide 100 mcg every 6 hours, transfer to ICU. ? Rewarming protocol with 1 ?F increase per hour, bolus fluids for hypotension from vasodilation ? Hypoglycemia protocol, POC glucose checks every hour until normalizes greater than 150 consistently ? Continuous infusion with D10W and 0.2% normal saline DVT prophylaxis with subcu Lovenox ? GI prophylaxis not indicated Patient is critically ill, expected recovery after clearance of glipizide. PDMP PDMP Reviewed: Not Reviewed Attestations Medical Necessity Statement*: Patient is critically ill, requiring greater than 2 midnights of hospital stay. Patient has a life-threatening illness, requires continuous nursing management. Coding Level of Care Code Critical Care >/= 30 minutes Critical care time (in minutes): 48 The high probability of a clinically significant, sudden or life threatening deterioration, as referenced in this documentation, required my full and direct attention, intervention and personal management. The critical care time shown is in addition to time spent performing any reported separately billable procedures and includes the following: [x] Data and vital sign review and interpretation [x] Patient assessment, examination and intervention [x] Medication orders and management [x] Patient/Family updates as able [x] Care Coordination and Documentation. Diagnoses Hypoglycemia secondary to sulfonylurea, accidental or unintentional, initial encounter T38.3X1A; E16.0 Injury intent: accidental or unintentional Encounter type: initial encounter
[2025-11-06] MEDS: pantoprazole 40 mg SDV IVP (21:21)
--- NOTE | 2025-11-06 21:30 | PC.NURSE ---
Physician Communication Patient stated she took her xarelto this AM when asked; 40 mg lovenox subcut due Q24H with first dose now. Also, D5NS administering at 150 ml/hr while ordered for 60 ml/hr and additional order active for D10 with 1/4NS to administer at 250 ml/hr. Dr. Alfonso contacted for clarification; order received to retime lovenox for 24 hours after xarelto dose, discontinue the D10 1/4NS, and keep D5NS administering at 150ml/hr.
--- NOTE | 2025-11-06 22:40 | PC.NURSE ---
Otero/Oxycodone Patient voiding in bedpan; unable to measure urine accurately. Furthermore, patient complaining of generalized pain at a 9 on a 1-10 numerical pain scale. Patient takes oxycodone at home for pain chronically. Dr. Alfonso contacted; BUN, creatinine, and pain discussed. Orders received to place otero catheter as well as for oxycodone IR 15 mg Q4H PRN for pain.
[2025-11-06] MEDS: oxyCODONE 5 mg IR Tab/Cap 15 MG PO (22:57)
[2025-11-07] VITALS (32 sets, daily range): BP systolic 134–185; BP diastolic 59–80; PULSE 51–62; RESP 16–24; TEMP 36.6–36.9; O2SAT 88–96; BMI 38.9
[2025-11-07] MEDS: dextrose 5%-sod chloride 0.9% 1,000 ML 150 ML IV (00:07)
--- NOTE | 2025-11-07 01:30 | PC.NURSE ---
D5NS Patient's blood sugar trending 170-190s. Dr. Alfonso notified; verbal order received to decrease the D5NS to 75 ml/hr.
[2025-11-07] MEDS: oxyCODONE 5 mg IR Tab/Cap 15 MG PO ×5 (03:27→23:06)
--- NOTE | 2025-11-07 04:06 | PC.NURSE ---
Blood Sugar Patient's blood sugar 210. Dr. Alfonso notified; order received to discontinue D5NS.
[2025-11-07 05:28] LABS: Hematocrit 36.0 % (36-47); Hemoglobin 11.40 g/dL (11.27-16.99); Mean Corpuscular HGB Conc 31.7 g/dL (30-55); Mean Corpuscular Hemoglobin 30.1 pg (27-33); Mean Corpuscular Volume 95.0 fl (85-98); Nucleated Red Blood Cells % 0 %; Platelet Count 255 10^3/cmm (157-399); Red Blood Count 3.79 10^6/uL (3.85-5.65); White Blood Count 7.56 10^3/uL (3.29-11.43)
[2025-11-07 05:42] LABS: Alanine Aminotransferase 8 U/L (0-33); Albumin Level 3.6 g/dL (3.5-5.2); Alkaline Phosphatase 36 U/L (35-105); Anion Gap 12.4 (5-19); Aspartate Amino Transferase 13 U/L (0-32); Blood Urea Nitrogen 24 mg/dL (8-23); Calcium 8.4 mg/dL (8.5-10.5); Carbon Dioxide 25 mmol/L (22-29); Chloride 105 mmol/L (98-107); Estmated Average Glucose 108; Globulin 2.1 g/dL (1.3-4.6); Glucose 188 mg/dL (65-115); Hemoglobin A1C 5.4 % (4.0-6.0); Magnesium 1.8 mg/dL (1.7-2.3); Osmolality Calculated 295 mOsm/kg (285-295); Potassium 4.4 mmol/L (3.5-5.1); Sodium 138 mmol/L (136-145); Total Protein 5.7 g/dL (6.6-8.7)
--- NOTE | 2025-11-07 11:04 | P.PN_ITS ---
Subjective 2 Subjective: Patient awake, alert. Tells me she did not remember the incident. Vitals/I&O/Wt Last Vital Signs Temp 98.4 F 11/07/25 05:18 Pulse 55 L 11/07/25 05:54 Resp 18 11/07/25 07:51 BP 167/70 11/07/25 05:45 Pulse Ox 96 11/07/25 07:51 O2 Del Method Nasal Cannula 11/07/25 02:19 O2 Flow Rate 2 11/07/25 02:19 11/06/25 11/07/25 11/07/25 22:59 06:59 14:59 Intake Total 1467.333 / 8979.394 5705.667 / 3045.000 0 / 0 Output Total 1200 / 1200 Balance 1467.333 / 1467.333 377.667 / 1845.000 0 / 0 Weight last 48 hrs Weight 95.5 kg Weight 96.5 kg Weight 95.5 kg Weight 96.615 kg Physical Exam 2 Const: OTHER: Alert, no acute distress HENMT: COMMON NORMALS: oropharynx normal Neck/C-Spine: COMMON NORMALS: no JVD Resp: COMMON NORMALS: normal respiratory effort and clear to auscultation bilaterally AUSCULTATION: clear to auscultation bilaterally Cardio: COMMON NORMALS: no JVD, regular rhythm, S1 normal heart sound present, S2 normal heart sound present and No murmurs present (Cardio) RHYTHM: regular rhythm HEART SOUNDS: S1 normal heart sound present and S2 normal heart sound present GI: COMMON NORMALS: Normal to inspection, nondistended, normoactive bowel sounds present, Soft to palpation and non-tender PALPATION: Yes Soft to palpation Extremity: COMMON NORMALS: no joint enlargement and no pedal edema Skin: COMMON NORMALS: no rashes or lesions noted GENERAL SKIN EXAM: no rashes or lesions noted Urinary Catheter Management: Iraheta: Cath Placed During This Visit: yes Reason for Continuing Indwelling Catheter: Accurate Measurement of Urinary Output in Critically Ill Patients Urinary Catheter Date of Insertion: 11/06/25 Urinary Catheter Time of Insertion: 22:45 Data 11/07/25 05:15 11/07/25 05:15 Micro: Microbiology 11/06/25 15:37 Urine Culture - Preliminary Urine,Clean Catch 11/06/25 15:50 Blood Culture - Preliminary Blood SPECIMEN COLLECTED 11/06/25 15:50 Blood Culture - Preliminary Blood SPECIMEN COLLECTED A&P Assessment and plan 1. Hypoglycemia secondary to sulfonylurea, accidental or unintentional, initial encounter: Plan: Type 2 diabetes mellitus Acute URI, on p.o. antibiotics Anorexia, nausea/vomiting Acute hypoglycemia with loss of consciousness, bradycardia, hypothermia ? Appears to be syndrome of drug side effect of diabetic medications, namely Tresiba which she took this morning and glipizide without eating. Morbid obesity Glipizide induced hypoglycemic episode Plan: 11/06/25: D/W with the ED doc. Will initiate octreotide 100 mcg every 6 hours, transfer to ICU. ? Rewarming protocol with 1 ?F increase per hour, bolus fluids for hypotension from vasodilation ? Hypoglycemia protocol, POC glucose checks every hour until normalizes greater than 150 consistently ? Continuous infusion with D10W and 0.2% normal saline 11/07/25: Patient awake alert, blood sugar no longer refractory requiring frequent pushes. Discussed with patient about glipizide, that she should not take it. Patient agrees DVT prophylaxis with subcu Lovenox ? GI prophylaxis not indicated Patient is critically ill, expected recovery after clearance of glipizide. PDMP PDMP Reviewed: Not Reviewed Attestations 2 Medical Necessity Statement*: requiring greater than 2 midnights of hospital stay. Patient has a life- threatening illness, requires continuous nursing management and frequent blood glucose checks Diagnoses Hypoglycemia secondary to sulfonylurea, accidental or unintentional, initial encounter T38.3X1A; E16.0 Encounter type: initial encounter Injury intent: accidental or unintentional
--- NOTE | 2025-11-07 13:33 | PC.SOCIAL ---
IMM update pg 2 of IMM updated and reviewed w/ patient. Copy provided and copy dated, initialed and placed in chart.
--- NOTE | 2025-11-07 16:16 | PC.NURSE ---
Patient report given to Nasrin ESTRELLA. alert and oriented x 4, wheelchair with o2 to bed 276 bed 2
[2025-11-07] MEDS: pantoprazole 40 mg SDV IVP (21:28)
[2025-11-08] VITALS (7 sets, daily range): BP systolic 160–194; BP diastolic 71–95; PULSE 56–79; RESP 16–18; TEMP 36.3–37; O2SAT 91–95; BMI 35.7
[2025-11-08] MEDS: oxyCODONE 5 mg IR Tab/Cap 15 MG PO ×2 (05:12→12:14)
--- NOTE | 2025-11-08 11:29 | P.DS_ITS ---
Discharge Providers Date of Admission: 11/06/25 17:56 Date of Discharge: November 08, 2025 Attending Provider at Admission: Greg Sanders MD Attending Provider at Discharge: Greg Sanders MD Primary Care Provider: DOMINICK Vizcarra Diagnoses at Discharge Discharge Diagnosis 1. Hypoglycemia secondary to sulfonylurea, accidental or unintentional, initial encounter: Reason for Visit Reason for Visit: Hypoglycemia Brief History: Elena Salinas is a 75 year old female with past medical history of obesity, insulin-dependent type 2 diabetes mellitus. At home she takes Tresiba 25 units daily in the morning, and metformin 1000 mg twice daily, glipizide 10 mg extended release p.o. daily. Patient came to the ER brought by her daughter, was discovered by her granddaughter that she was unresponsive after being on the phone with her just an hour per hour. When patient was brought by EMS, she was found to be bradycardic with pulse rate 40-44, hypothermic, unresponsive. When I saw the patient, she was in the ED bed, with Kennedy hugger, appears to be resting comfortably but not able to be aroused. According to history from the patient's granddaughter, she had not eaten anything for the past 2 days because she started taking Augmentin for her acute bronchitis. Patient continued to take her regular diabetic medications.So far patient is received fluid resuscitation with IV dextrose, ceftriaxone, normal saline. Hospital Course Hospital Course Assessment and plan 1. Hypoglycemia secondary to sulfonylurea, accidental or unintentional, initial encounter: Plan: Type 2 diabetes mellitus Acute URI, on p.o. antibiotics Anorexia, nausea/vomiting Acute hypoglycemia with loss of consciousness, bradycardia, hypothermia ? Appears to be syndrome of drug side effect of diabetic medications, namely Tresiba which she took this morning and glipizide without eating. Morbid obesity Glipizide induced hypoglycemic episode Plan: 11/06/25: D/W with the ED doc. Will initiate octreotide 100 mcg every 6 hours, transfer to ICU. ? Rewarming protocol with 1 ?F increase per hour, bolus fluids for hypotension from vasodilation ? Hypoglycemia protocol, POC glucose checks every hour until normalizes greater than 150 consistently ? Continuous infusion with D10W and 0.2% normal saline 11/07/25: Patient awake alert, blood sugar no longer refractory requiring frequent pushes. Discussed with patient about glipizide, that she should not take it. Patient agrees 11/08/2025: Patient remained stable overnight, no events. Discharged home in stable condition. Recommended to stop glipizide, to titrate her medications with insulin instead or other means to manage her type 2 diabetes mellitus. Educated patient on withholding or titrating her diabetic medications while not eating. Physical Exam Urinary Catheter Management: Iraheta: Cath Placed During This Visit: yes Reason for Continuing Indwelling Catheter: Accurate Measurement of Urinary Output in Critically Ill Patients Urinary Catheter Date of Insertion: 11/06/25 Urinary Catheter Time of Insertion: 22:45 Discharge Data Studies Completed and Pending Completed Studies During Hospitalization Category Date Time Status XR chest 1V portable [id number] Stat Exams 11/06/25 15:20 Completed Pending at discharge Category Date Time Status Blood Culture Stat Lab 11/06/25 15:50 Results Radiology Impressions Chest X-Ray 11/06/25 15:20 IMPRESSION: No new acute cardiopulmonary abnormality identified. Laboratory Results WBC 7.56 10^3/uL (3.29-11.43) 11/07/25 05:15 RBC 3.79 10^6/uL (3.85-5.65) L 11/07/25 05:15 Hgb 11.40 g/dL (11.27-16.99) 11/07/25 05:15 Hct 36.0 % (36-47) 11/07/25 05:15 MCV 95.0 fl (85-98) 11/07/25 05:15 MCH 30.1 pg (27-33) 11/07/25 05:15 MCHC 31.7 g/dL (30-55) 11/07/25 05:15 RDW 13.1 % (12.1-15.1) 11/07/25 05:15 Plt Count 255 10^3/cmm (157-399) 11/07/25 05:15 MPV 10.3 fL (7.4-10.4) 11/07/25 05:15 Neut % (Auto) 69.9 % 11/07/25 05:15 Lymph % (Auto) 19.4 % 11/07/25 05:15 [place] % (Auto) 7.7 % 11/07/25 05:15 Eos % (Auto) 2.1 % 11/07/25 05:15 Baso % (Auto) 0.4 % 11/07/25 05:15 Neut # (Auto) 5.28 10^3/uL (1.8-7.7) 11/07/25 05:15 Lymph # (Auto) 1.5 10^3/uL (0.8-4.8) 11/07/25 05:15 [place] # (Auto) 0.6 10^3/uL (0.2-0.9) 11/07/25 05:15 Eos # (Auto) 0.2 10^3/uL (0.0-0.8) 11/07/25 05:15 Baso # (Auto) 0.0 10^3/uL (0.0-0.1) 11/07/25 05:15 Nucleated RBC % (auto) 0 % 11/07/25 05:15 Nucleated RBCs # 0.0 /100WBC 11/07/25 05:15 Sodium 138 mmol/L (136-145) 11/07/25 05:15 Potassium 4.4 mmol/L (3.5-5.1) 11/07/25 05:15 Chloride 105 mmol/L (98-107) 11/07/25 05:15 Carbon Dioxide 25 mmol/L (22-29) 11/07/25 05:15 Anion Gap 12.4 (5-19) 11/07/25 05:15 BUN 24 mg/dL (8-23) H 11/07/25 05:15 Creatinine 0.9 mg/dL (0.5-0.9) 11/07/25 05:15 GFR Calculation Not Reportable 11/07/25 05:15 Glucose 188 mg/dL (65-115) H 11/07/25 05:15 POC Glucose 118 mg/dL (70-110) H 11/08/25 06:41 Estimat Average Glucose 108 11/07/25 05:15 Hemoglobin A1c 5.4 % (4.0-6.0) 11/07/25 05:15 Calculated Osmolality 295 mOsm/kg (285-295) 11/07/25 05:15 Lactic Acid 1.4 mmol/L (0.5-2.2) 11/06/25 15:50 Calcium 8.4 mg/dL (8.5-10.5) L 11/07/25 05:15 Phosphorus 3.2 mg/dL (2.5-4.5) 11/07/25 05:15 Magnesium 1.8 mg/dL (1.7-2.3) 11/07/25 05:15 Total Bilirubin 0.2 mg/dL (0.15-1.2) 11/07/25 05:15 AST 13 U/L (0-32) 11/07/25 05:15 ALT 8 U/L (0-33) 11/07/25 05:15 Alkaline Phosphatase 36 U/L (35-105) 11/07/25 05:15 Creatine Kinase 84 U/L (26-192) 11/06/25 15:50 Total Protein 5.7 g/dL (6.6-8.7) L 11/07/25 05:15 Albumin 3.6 g/dL (3.5-5.2) 11/07/25 05:15 Globulin 2.1 g/dL (1.3-4.6) 11/07/25 05:15 Urine Color Yellow (Yellow) 11/06/25 15:37 Urine Appearance Clear (CLEAR) 11/06/25 15:37 Urine pH 5.0 (5-7) 11/06/25 15:37 Ur Specific [place] 1.023 (1.005-1.030) 11/06/25 15:37 Urine Protein Negative (Negative) 11/06/25 15:37 Urine Glucose (UA) Negative (Normal) 11/06/25 15:37 Urine Ketones Negative (Negative) 11/06/25 15:37 Urine Blood Negative (Negative) 11/06/25 15:37 Urine Nitrate Negative (Negative) 11/06/25 15:37 Urine Bilirubin Negative (Negative) 11/06/25 15:37 Urine Urobilinogen 0.2 mg/dL (Negative) 11/06/25 15:37 Ur Leukocyte Esterase 1+ (Negative) A 11/06/25 15:37 Urine RBC 0-2 /hpf (0-2) 11/06/25 15:37 Urine WBC 11-20 /hpf (0-5) H 11/06/25 15:37 Ur Squamous Epith Cells 6-10 /hpf (0-5) 11/06/25 15:37 Amorphous Sediment Not Reportable 11/06/25 15:37 Urine Bacteria None seen /hpf (NONE) 11/06/25 15:37 Hyaline Casts 2.46 /lpf 11/06/25 15:37 Influenza A (PCR) Negative (Negative) 11/06/25 15:25 Influenza Type B (PCR) Negative (Negative) 11/06/25 15:25 RSV (PCR) Negative (Negative) 11/06/25 15:25 SARS-CoV-2 (PCR) Negative (Negative) 11/06/25 15:25 Vitals Last Vital Signs Temp 98.6 F 11/08/25 07:27 Pulse 57 L 11/08/25 07:27 Resp 16 11/08/25 07:27 BP 184/72 11/08/25 07:27 Pulse Ox 95 11/08/25 07:27 O2 Del Method Nasal Cannula 11/08/25 07: O2 Flow Rate 1.5 11/08/25 08:00 Discharge Plan Discharge Patient Disposition: Home Condition: Stable Prescriptions: Continued Xarelto 10 mg tablet 10 mg PO DAILY Qty: 90 1RF metoprolol tartrate 50 mg tablet 50 mg PO BID Qty: 180 1RF metformin 1,000 mg tablet 1,000 mg PO BID Qty: 180 1RF (DME) oxygen 2L via NC See Rx Instructions .Route .MEDSUPPLY Qty: 1 0RF Rx Instructions: -needs nocturnal supplemental o2 and o2 throughout day with exertion albuterol sulfate [Ventolin HFA] 90 mcg/actuation HFA aerosol inhaler 2 puff inhalation QID PRN (Reason: shortness of breath or wheezing) Qty: 6.7 11RF insulin degludec [Tresiba FlexTouch U-100] 100 unit/mL (3 mL) insulin pen 25 unit SUBCUT QAM Qty: 15 5RF (DME) BD Luer-Beth Syringe 3 mL 25 gauge x 1 syringe See Rx Instructions .ROUTE .COMPLEX Qty: 1 5RF Dose Instruction: USE ONE SYRINGE MONTHLY TO INJECT B12 Rx Instructions: USE ONE SYRINGE MONTHLY TO INJECT B12 (DME) glucometer testing kit See Rx Instructions .Route .MEDSUPPLY Qty: 1 0RF Rx Instructions: Glucometer testing kit, check blood sugars 3 times daily -Lancets #100, strips #100 (DME) glucometer testing kit See Rx Instructions .Route .MEDSUPPLY Qty: 1 0RF Rx Instructions: Glucometer testing kit, check blood sugars 3 times daily, after meals based on sliding scale provided Lancets #100 Strips #100 oxycodone-acetaminophen 7.5-325 mg tablet 1 tab PO BID PRN (Reason: Pain) famotidine 20 mg tablet 20 mg PO BID magnesium oxide 400 mg (241.3 mg magnesium) tablet 400 mg PO DAILY gabapentin 800 mg tablet 800 mg PO TID amlodipine 10 mg tablet 10 mg PO DAILY hydralazine 100 mg tablet 100 mg PO TID fenofibrate 160 mg tablet 160 mg PO DAILY oxycodone 15 mg tablet 15 mg PO Q4H PRN (Reason: Pain) levalbuterol tartrate 45 mcg/actuation HFA aerosol inhaler 2 puff INHALATION Q6H PRN (Reason: Shortness Of Breath) cyanocobalamin (vitamin B-12) 1,000 mcg/mL solution 1,000 mcg SUBCUT .Q30D Discontinued glipizide 10 mg tablet extended release 24hr 10 mg PO DAILY Qty: 90 1RF amoxicillin-pot clavulanate 875-125 mg tablet 1 tab PO BID Qty: 20 0RF Discharge Order = DC NOW: Discharge Order (Routine); Ordered 11/08/25 Ordered By: Greg aSnders Referrals: Sheri Black FNP [Primary Care Provider, Family Practice] Referral Note: We have notified your physician's clinic of the need for a follow-up appointment to be scheduled. If you have not heard from them within the next 2 business days, please call them directly. Discharge Diet: Usual diet and Diabetic Discharge Activity: Resume usual activity Patient Instructions: Hypoglycemia, Opioid Safety, Patient Portal & Martin Instructions Activity Restrictions/Additional Instructions: Stop taking glipizide. discuss with your doctor. Discharge Attestations Time Spent in Discharge Care*: greater than 30 min Status at Discharge: Cognitive status at discharge: cognitively intact , Behavioral status at discharge: cooperative , Quality Metrics Clinical Quality Measures [ No reported AMI, CVA or VTE this stay] Coding Level of Care Code 69812 Diagnoses Hypoglycemia secondary to sulfonylurea, accidental or unintentional, initial encounter T38.3X1A; E16.0 Encounter type: initial encounter Injury intent: accidental or unintentional
== END 2025-11-08 13:15 | disposition home or self-care (01) | DRG 638 ==
LOC: ER 17:07 → ICU 17:57 → MEDSURG 11-07 16:31
PROVIDERS: Admitting Provider Internal Medicine; Emergency Provider Emergency Medicine; PCP Nurse Practitioner Family; Visit Provider Internal Medicine
DX: E11.649 Type 2 diabetes mellitus with hypoglycemia without coma (principal); N39.0 Urinary tract infection, site not specified; R68.0 Hypothermia, not associated with low environmental temperature; R00.1 Bradycardia, unspecified; E66.01 Morbid (severe) obesity due to excess calories; E11.40 Type 2 diabetes mellitus with diabetic neuropathy, unspecified; I10 Essential (primary) hypertension; E78.5 Hyperlipidemia, unspecified; J20.9 Acute bronchitis, unspecified; K21.9 Gastro-esophageal reflux disease without esophagitis; I48.91 Unspecified atrial fibrillation; Z79.4 Long term (current) use of insulin; Z79.84 Long term (current) use of oral hypoglycemic drugs; Z68.35 Body mass index [BMI] 35.0-35.9, adult; Z11.52 Encounter for screening for COVID-19; Z79.899 Other long term (current) drug therapy; Z79.01 Long term (current) use of anticoagulants; Z86.16 Personal history of COVID-19; T38.3X5A Adverse effect of insulin and oral hypoglycemic [antidiabetic] drugs, initial encounter
CPT/HCPCS: 36415; 36416; 51702; 71045; 80053; 81001; 82550; 82962; 83036; 83605; 83735; 84100; 85025; 87040; 87086; 87637; 93005; 96361; 96365; 96366; 96367; 96372; 96375; 99291; J0461; J0696; J1650; J2354; J2470; J7030; J7040; J7042; J7799; J9999